=== PATIENT | female | born 1995 | race Caucasian/White ===

== ENCOUNTER 2019-03-20 16:43 | Emergency (ER) | payer MEDICAID, SELFPAY ==
[2019-03-20 17:16] VITALS: BP 137/93; PULSE 86; RESP 17; TEMP 36.7; O2SAT 98
--- NOTE | 2019-03-20 18:01 | W.ED.GENAD ---
Discharge Plan Disposition Patient Disposition: HOME Condition: Improving Discharge Details Chief Complaint: Chest Pain Clinical Impression: Atypical chest pain Primary Care Provider: Ricardo Ha ED Provider: Tobias Guerrero Home Meds and New Rx's Prescriptions: No Action No Known Home Meds RF: 0 Discharge Instructions Instructions: Chest Pain (ED) Additional Instructions: It is important that you follow-up with your primary care provider within the next week for reassessment of your symptoms. Return immediately to the emergency department for any new or worsening symptoms or any further concerns. Referrals: Amber Waite MD [ [facility] STAFF PHYSICIAN] - 1 week Discharge Data Discharge Date/Time-TO BE ENTERED AT DEPARTURE: 03/20/19 21:45 Medical Decision Making Patient presenting to the emergency department for chief complaint of chest pain. Patient states since last night she has had intermittent episodes of twinges of chest pain that seem to come and go. Patient also does complain of intermittent sensation of palpitations. Patient did have blood pressure checked when she was at work and noted it was elevated so came to the emergency department for examination. Patient does have mildly elevated blood pressure 137/93 otherwise unremarkable vital signs, physical exam is unremarkable nondiagnostic, EKG reviewed with attending physician Dr. Jemima Pena and shows sinus rhythm, rate of 76, normal axis, no STEMI, computer notation of short MO syndrome otherwise nondiagnostic EKG. Plan to do labs including d-dimer for work-up of chest pain. Review of initial labs show nonspecific leukocytosis, unremarkable CMP, negative initial troponin, negative d-dimer patient reassessed and states improvement of overall symptoms but occasionally feels continued twinges of chest pain. Patient denies any need for medication. Plan to do second troponin and continue to observe patient Second troponin reviewed and again is less than 0.05 . Patient reassessed and states continued improvement of symptoms and is requesting to go home. I feel that given patient's age and low risk factors that she is able to be safely followed up on outpatient basis. Patient placed on follow-up list for follow-up with primary care provider for chest pain reassessment. Return precautions discussed. After discussion of diagnosis and plan of care patient has no further needs, questions, or concerns and states clear understanding to return to the emergency department for any worsening symptoms. HPI General Mode of arrival: ambulatory. Date/Time Provider Initiated Documentation: 03/20/19 17:34. Limitations to Documentation: no limitations. Information obtained by: patient and RN notes reviewed. History of Present Illness 23 year old F presents to the emergency department with the chief complaint of chest pain, described as moderate, with intensity rated at 5. Quality is described as aching, and is localized to the chest. Patient started experiencing this day(s) (1) and it has been constant. No relieving factors improve symptom(s), No exacerbating factors reported . Patient notes no other symptoms.. Patient did receive the following treatments prior to arrival, none Related Data Home Medications Medication Instructions Recorded Confirmed Unknown [No Known Home Meds] 03/20/19 03/20/19 Allergies Allergy/AdvReac Type Severity Reaction Status Date / Time No Known Allergies Allergy Unverified 03/20/19 17:19 General Stated Complaint: Chest Pain BUNNY: 2 Review of Systems Constitutional Constitutional: Denies chills, Denies fever(s) and Denies malaise Cardiovascular Cardiovascular: Reports as per HPI, Reports chest pain, Denies chest pain with activity, Reports palpitations and Denies dyspnea Respiratory Respiratory: Denies cough, Denies hemoptysis and Denies dyspnea Gastrointestinal Gastrointestinal: Denies abdominal pain and Denies nausea Endocrine Endocrine: Reports palpitations PFSH Surgical History Appendectomy section 07/29/2010 07/20/2013 Family History Grandmother Diabetes Atrial fibrillation Heart disease Myocardial infarction Thyroid disease Social History Smoking/Tobacco Use Status: Never Drug use: Never Exam Const General: cooperative, healthy appearing, comfortable, no acute distress, not diaphoretic and not ill appearing Nutritional Appearance: average body habitus Orientation: alert, awake and oriented x3 Limitations: mental status not altered Neck Neck: normal visual inspection, full ROM, trachea midline, supple and no anterior neck swelling Chest Chest: normal inspection of the chest Resp Effort & Inspection: normal respiratory effort and able to speak in complete sentences Auscultation: clear to auscultation bilaterally Cardio Jugular venous pressure: no JVD Palpation: normal PMI Rate: regular rate Rhythm: regular rhythm Heart Sounds: S1 normal, S2 normal, no click, no gallops, no murmurs and no rubs GI Palpation: soft Auscultation: normal bowel sounds Skin General skin exam: no rashes or lesions noted Neuro General: alert, awake, oriented x3 and moves all extremities Course Vital Signs Vital signs: Vital Signs Temperature 36.7 C 03/20/19 17:16 Pulse 86 03/20/19 17:16 Respiratory Rate 17 03/20/19 17:16 Blood Pressure 137/93 H 03/20/19 17:16 Pulse Oximetry 98 03/20/19 17:16 Temperature 36.7 C 03/20/19 17:16 Pulse 86 03/20/19 17:16 Respiratory Rate 17 03/20/19 17:16 Blood Pressure 137/93 H 03/20/19 17:16 Blood Pressure Position Sitting 03/20/19 17:16 Pulse Oximetry 98 03/20/19 17:16 Oxygen Delivery Method Room Air 03/20/19 17:16 Oxygen Flow Rate 0 03/20/19 17:16 Pain Level 5 03/20/19 17:16
[2019-03-20 18:26] LABS: Abs Immature Grans 0.03 k/cumm (0.0-0.09); Absolute Basophil Count 0.07 k/cumm (0.0-0.2); Absolute Lymphocyte Count 2.51 k/cumm (1.2-3.4); Absolute Monocyte Count 0.74 k/cumm (0.11-0.7); Basophils % 0.6; Eosinophils % 1.6; HCT 41.9 % (36.0-46.0); HGB 14.1 g/dL (12.0-15.5); Immature Grans % 0.2; Lymphocytes % 20.6; Mean Corp. HGB Concentration 33.7 g/dL (32.0-36.0); Mean Corpuscular Hemoglobin 29.4 pg (27.0-33.0); Mean Corpuscular Volume 87.3 fL (80-95); Mean Platelet Volume 10.4 fL (8.0-11.0); Monocytes % 6.1; Neutrophils % 70.9; Platelet Count 339 x1000/uL (130-400); RBC Distribution Width 13.1 % (11.7-14.6); White Blood Cell Count 12.17 k/cumm (4.4-10.8)
[2019-03-20 18:28] LABS: Absolute Eosinophil Count 0.19 k/cumm (0.0-0.7); Absolute Neutrophil Count 8.63 k/cumm (1.2-6.7)
[2019-03-20 18:42] LABS: ALT 19 U/L (14-59); AST 8 U/L (15-37); Albumin 4.5 g/dL (3.4-5.0); Alkaline Phosphatase 69 U/L (46-116); Anion Gap 10.6 mmol/L (3-11); BUN 11 mg/dL (7-18); Bilirubin, Total 0.3 mg/dL (0.2-1.0); CO2 26.4 mmol/L (21.0-32.0); CREATININE 0.84 mg/dL (0.55-1.02); Calcium 9.2 mg/dL (8.5-10.1); Chloride 102 mmol/L (98-107); Glucose 89 mg/dL (70-100); Magnesium 1.9 mg/dL (1.8-2.4); Potassium 4.1 mmol/L (3.5-5.1); Sodium 139 mmol/L (136-145); Total Protein 7.8 g/dL (6.4-8.2)
[2019-03-20 18:48] LABS: Troponin I < 0.05 ng/mL (0.00-0.06)
[2019-03-20 19:02] LABS: D-Dimer 374 ng/mlFEU (<500)
[2019-03-20 21:12] LABS: Troponin I < 0.05 ng/mL (0.00-0.06)
== END 2019-03-20 21:45 | disposition home or self-care (01) ==
PROVIDERS: Emergency Provider Nurse Practitioner Family; PCP Nurse Practitioner Family
DX: R07.89 Other chest pain (principal)
CPT/HCPCS: 36415; 80053; 93005; 99285; 83735; 84484; 85025; 85379; 93010

== ENCOUNTER 2019-04-04 11:12 | Outpatient (REF) | payer MEDICAID, SELFPAY ==
[2019-04-04 13:41] LABS: Abs Immature Grans 0.04 k/cumm (0.0-0.09); Absolute Basophil Count 0.03 k/cumm (0.0-0.2); Absolute Eosinophil Count 0.12 k/cumm (0.0-0.7); Absolute Lymphocyte Count 1.99 k/cumm (1.2-3.4); Absolute Monocyte Count 0.64 k/cumm (0.11-0.7); Basophils % 0.3; Eosinophils % 1.2; HCT 42.1 % (36.0-46.0); HGB 13.9 g/dL (12.0-15.5); Immature Grans % 0.4; Lymphocytes % 20.5; Mean Corpuscular Hemoglobin 28.8 pg (27.0-33.0); Mean Corpuscular Volume 87.2 fL (80-95); Mean Platelet Volume 11.2 fL (8.0-11.0); Monocytes % 6.6; Platelet Count 320 x1000/uL (130-400); RBC 4.83 m/cumm (4.00-5.20); RBC Distribution Width 13.2 % (11.7-14.6); White Blood Cell Count 9.72 k/cumm (4.4-10.8)
[2019-04-04 14:48] LABS: ALT 104 U/L (14-59); AST 30 U/L (15-37); Albumin 4.5 g/dL (3.4-5.0); Alkaline Phosphatase 80 U/L (46-116); Anion Gap 10.1 mmol/L (3-11); BUN 8 mg/dL (7-18); Bilirubin, Total 0.4 mg/dL (0.2-1.0); CO2 26.9 mmol/L (21.0-32.0); CREATININE 0.79 mg/dL (0.55-1.02); Calcium 9.8 mg/dL (8.5-10.1); Chloride 103 mmol/L (98-107); Glucose 95 mg/dL (70-100); Potassium 4.6 mmol/L (3.5-5.1); Sodium 140 mmol/L (136-145); TSH (W/Ref FT4) 1.64 uIU/mL (0.36-3.74); Total Protein 7.6 g/dL (6.4-8.2)
== END 2019-04-04 11:32 ==
LOC: NCHCN 11:12
PROVIDERS: PCP Nurse Practitioner Family; Visit Provider Nurse Practitioner Family
DX: R00.2 Palpitations (principal)
CPT/HCPCS: 80053; 84443; 85025

== ENCOUNTER 2019-04-23 01:08 | Outpatient (CLI) | payer MEDICAID, SELFPAY | END 2019-04-23 01:28 | PROVIDERS: PCP Nurse Practitioner Family; Visit Provider Nurse Practitioner Family | DX: R00.0 Tachycardia, unspecified (principal); I49.1 Atrial premature depolarization | CPT/HCPCS: 93225 ==

== ENCOUNTER 2019-04-25 08:12 | Outpatient (CLI) | payer MEDICAID, SELFPAY ==
--- NOTE | 2019-04-25 09:09 | W.HOLTRPT ---
Date of service: 04/25/19 Time of Service: 09:09 Holter Monitor Report Holter Monitor Note: There is a 48-hour Holter monitor ordered for the indication of palpitations. ?The patient was in normal sinus rhythm for the entirety of the recording ?The patient had 0 episodes of supraventricular tachycardia and 2 total premature atrial beats. ?The patient had 0 episodes of ventricular tachycardia and no ventricular ectopic beats. ?There were no episodes of atrial fibrillation no episodes of high degree heart block and no pauses greater than 3 seconds. ?Patient event recordings corresponded with sinus rhythm and sinus tachycardia.
== END 2019-04-25 08:32 ==
PROVIDERS: PCP Nurse Practitioner Family; Visit Provider Nurse Practitioner Family
DX: R00.0 Tachycardia, unspecified (principal); I49.1 Atrial premature depolarization
CPT/HCPCS: 93226

== ENCOUNTER 2020-05-29 19:11 | Outpatient (REF) | payer SELFPAY ==
[2020-06-01 22:43] LABS: COVID-19 RT-PCR Result Positive (Negative)
== END 2020-05-29 19:31 ==
LOC: LBN 19:11
PROVIDERS: PCP Nurse Practitioner Family; Visit Provider Nurse Practitioner Adult Health
DX: Z11.59 Encounter for screening for other viral diseases (principal)
CPT/HCPCS: U0003

== ENCOUNTER 2020-09-18 16:11 | Outpatient (REF) | payer SELFPAY ==
[2020-09-19 19:44] LABS: COVID-19 RT-PCR UVMMC Result Indeterminate (Negative)
== END 2020-09-18 16:12 | disposition home or self-care (01) ==
LOC: LBN 16:11
PROVIDERS: PCP Nurse Practitioner Family; Visit Provider Nurse Practitioner Adult Health
DX: Z20.822 Contact with and (suspected) exposure to COVID-19 (principal)
CPT/HCPCS: U0003

== ENCOUNTER 2021-04-14 13:09 | Outpatient (REF) | payer OTHER, SELFPAY ==
[2021-04-14 13:31] LABS: Abs Immature Grans 0.05 10^3/uL (0.0-0.06); Absolute Basophil Count 0.06 10^3/uL (0.0-0.2); Absolute Eosinophil Count 0.18 10^3/uL (0.0-0.7); Absolute Lymphocyte Count 1.98 10^3/uL (1.2-3.4); Absolute Monocyte Count 0.49 10^3/uL (0.1-0.8); Absolute Neutrophil Count 6.32 10^3/uL (1.2-6.7); Basophils % 0.7; HCT 40.3 % (36.0-46.0); HGB 13.3 g/dL (11.2-15.7); Immature Grans % 0.6; Lymphocytes % 21.8; MCH 28.4 pg (27.0-33.0); MCV 85.9 fL (80-95); MPV 10.6 fL (8.0-11.0); Monocytes % 5.4; Neutrophils % 69.5; Nucleated RBC 0 %; Platelet Count 339 10^3/uL (130-400); RBC 4.69 10^6/uL (3.93-5.22); RDW 12.4 % (11.7-14.6); RDW-SD 38.8 fL; WBC 9.08 10^3/uL (4.4-10.8)
[2021-04-14 13:32] LABS: Bilirubin Negative (Negative); Blood Trace-intact (Negative); Clarity Clear (Clear); Glucose Negative (Negative); Ketones Negative (Negative); Leukocyte Esterase Negative (Negative); Nitrite Negative (Negative); Urobilinogen 0.2 EU/dL (Up TO 0.2)
[2021-04-14 13:42] LABS: Bacteria Few HPF (Negative); C & S Indicated? No; Casts Negative LPF (Negative); Crystals Negative HPF (Negative); Epithelial Cells Many HPF (Negative); Mucus Negative (Negative); Other Cells Negative (Negative); RBC 0-2 HPF (0-2); WBC 0-2 HPF (0-5)
[2021-04-14 14:07] LABS: ALT 32 U/L (14-59); AST 11 U/L (15-37); Albumin 4.3 g/dL (3.4-5.0); Alkaline Phosphatase 74 U/L (46-116); Anion Gap 8.7 mmol/L (3-11); BUN 10 mg/dL (7-18); Bilirubin, Total 0.4 mg/dL (0.2-1.0); CO2 27.3 mmol/L (21.0-32.0); CREATININE 0.8 mg/dL (0.55-1.02); Calcium 9.5 mg/dL (8.5-10.1); Calculated LDL 212 mg/dL (<100); Chloride 103 mmol/L (98-107); Cholesterol 290 mg/dL (<200); Glucose 88 mg/dL (74-106); HDL Cholesterol 46 mg/dL (40-60); Potassium 4.4 mmol/L (3.5-5.1); Sodium 139 mmol/L (136-145); TSH (W/Ref FT4) 1.53 uIU/mL (0.36-3.74); Triglyceride 164 mg/dL (<150)
[2021-04-14 15:27] LABS: NT-proBNP 56 pg/mL (<300)
[2021-04-14 15:51] LABS: COMMENT (LAB VIEW ONLY) 11.89 mg/dL; Microalb ug/mg Crea 36.2 ug/mg Cr
== END 2021-04-14 13:10 | disposition home or self-care (01) ==
LOC: LBN 13:09
PROVIDERS: PCP Nurse Practitioner Family; Visit Provider Nurse Practitioner Family
DX: I10 Essential (primary) hypertension (principal); R53.83 Other fatigue; Z00.00 Encounter for general adult medical examination without abnormal findings; R60.9 Edema, unspecified
CPT/HCPCS: 80053; 80061; 81003; 81015; 82043; 82570; 83880; 84443; 85025

== ENCOUNTER 2023-03-28 16:11 | Outpatient (REF) | payer BC, SELFPAY ==
[2023-03-28 19:01] LABS: Hemoglobin A1C 5.3 % (<5.7)
[2023-03-28 19:05] LABS: ALT 39 U/L (14-59); AST 16 U/L (15-37); Albumin 4.3 g/dL (3.4-5.0); Alkaline Phosphatase 59 U/L (46-116); Anion Gap 5.6 mmol/L (3-11); BUN 9 mg/dL (7-18); Bilirubin, Total 0.3 mg/dL (0.2-1.0); CO2 27.4 mmol/L (21.0-32.0); CREATININE 0.8 mg/dL (0.55-1.02); Calcium 9.5 mg/dL (8.5-10.1); Chloride 103 mmol/L (98-107); Estimated GFR 102.22 (mL/min/1.73m2); FREE T4 0.97 ng/dL (0.76-1.46); Glucose 85 mg/dL (74-106); Sodium 136 mmol/L (136-145); TSH 1.29 uIU/mL (0.36-3.74); Total Protein 7.6 g/dL (6.4-8.2)
== END 2023-03-28 16:12 | disposition home or self-care (01) ==
LOC: NCHCN 16:11
PROVIDERS: Visit Provider Nurse Practitioner Family
DX: I10 Essential (primary) hypertension (principal); E66.8 Other obesity; Z68.30 Body mass index [BMI] 30.0-30.9, adult; Z13.1 Encounter for screening for diabetes mellitus
CPT/HCPCS: 80053; 83036; 84439; 84443

== ENCOUNTER 2024-06-26 16:41 | Outpatient (REF) | payer BC, SELFPAY ==
--- OUTSIDE RECORDS SUMMARY | 2024-06-26 16:43 | XMS_ITS | Encounter Summary ---
[place] [address] Care Team Providers Care Collar Worker Name Role Phone Shaneka Mae APRN Primary Care Provider [phone] Encounter Details Date Type Department Care Team (Late st Contact Info) Description 06/25/2018 Orders Only Obstetrics [place] [id number] Kinjal Jennings RN Social History Tobacco Use Types Packs/Day Years Used Date Smoking Tobacco: Never Smokeless Tobacco: Never Alcohol Use Standard Drinks/Week Comments No 0 (1 standard drink = 0.6 oz pur e alcohol) Sex and Gender Information Value Date Recorded Sex Assigned at Not on file Gender Identity Not on file Sexual Orientation Not on file documented as of this encounter Plan of Treatment Not on file documented as of this encounter Visit Diagnoses Not on filedocumented in this encounter Care Teams Collar Worker Relationship Specialty Start Date End Date Shaneka Mae APRN PCP - General Family Medicine 06/13/18 01/09/19 documented as of this encounter
--- OUTSIDE RECORDS SUMMARY | 2024-06-26 16:43 | XMS_ITS | Continuity of Care Document ---
Author Organization [facility] Address [address] [place] [address] Encounter [place] Date(s): 12/02/22 - 12/02/[address] [address] Discharge Disposition: Home or Self Care Attending Physician: Antonio Vences DO Admitting Physician: Antonio Vences DO Referring Physician: Antonio Vences DO Assessment and Plan Diagnostic Tests Pending * QuantiFERON-TB Gold Plus, WB [place] 12/02/22 * Hepatitis B Surface Antibody [facility] 12/02/22 Patient Care team information Care Team Related Persons Name: KHURRAM LISA
--- OUTSIDE RECORDS SUMMARY | 2024-06-26 16:43 | XMS_ITS | Encounter Summary ---
[place] [address] Care Team Providers Care Director Translational Name Role Phone Shaneka Mae APRN Primary Care Provider [phone] Encounter Details Date Type Department Care Team (Latest Contact Info) Description 08/21/2018 Encounter Social History Tobacco Use Types Packs/Day Years Used Date Smoking Tobacco: Never Smokeless Tobacco: Never Alcohol Use Standard Drinks/Week Comments No 0 (1 standard drink = 0.6 oz pur e alcohol) Sex and Gender Information Value Date Recorded Sex Assigned at Not on file Gender Identity Not on file Sexual Orientation Not on file documented as of this encounter Miscellaneous Notes * Note - Jaimie Motley RN - 08/21/2018 7:42 PM EDT This note was copied from a baby's chart. Per the bedside RN, who cares for this baby frequently. Mom has stopped pumping. Mom does have a granted hospital grade pump that will need to be collected. documented in this encounter Plan of Treatment Not on file documented as of this encounter Visit Diagnoses Not on filedocumented in this encounter Care Teams Director Translational Relationship Specialty Start Date End Date Shaneka Mae APRN PCP - General Family Medicine 06/13/18 01/09/19 documented as of this encounter
--- OUTSIDE RECORDS SUMMARY | 2024-06-26 16:43 | XMS_ITS | Encounter Summary ---
[place] [address] Care Team Providers Care Septic Pump Truck Driver Name Role Phone Shaneka Mae APRN Primary Care Provider [phone] Encounter Details Date Type Department Care Team (Late st Contact Info) Description 09/06/2018 Notes Only Obstetrics [place] [phone] Tess Arias RN Social History Tobacco Use Types Packs/Day Years Used Date Smoking Tobacco: Never Smokeless Tobacco: Never Alcohol Use Standard Drinks/Week Comments No 0 (1 standard drink = 0.6 oz pur e alcohol) Sex and Gender Information Value Date Recorded Sex Assigned at Not on file Gender Identity Not on file Sexual Orientation Not on file documented as of this encounter Progress Notes * Tess Arias RN - 09/06/2018 2:33 PM EDT Disability paperwork completed and Carol has been called to inform her she can pick it up at [address] engineering secretary desk. documented in this encounter Plan of Treatment Not on file documented as of this encounter Visit Diagnoses Not on filedocumented in this encounter Care Teams Septic Pump Truck Driver Relationship Specialty Start Date End Date Shaneka Mae APRN PCP - General Family Medicine 06/13/18 01/09/19 documented as of this encounter
--- OUTSIDE RECORDS SUMMARY | 2024-06-26 16:43 | XMS_ITS | Encounter Summary ---
[place] [address] Care Team Providers Care Human Resources Office Assistant Name Role Phone Shaneka Mae APRN Primary Care Provider [phone] Reason for Visit * Reason Comments Care Encounter Details Date Type Department Care Team (Latest Contact Info) Description 07/30/2018 11:00 AM EST Visit Obstetrics [place] [address] Georgia Sarmiento MD [facility] [place] [address] Hypertension in , preeclampsia, delivered Social History Tobacco Use Types Packs/Day Years Used Date Smoking Tobacco: Never Smokeless Tobacco: Never Alcohol Use Standard Drinks/Week Comments No 0 (1 standard drink = 0.6 oz pur e alcohol) Sex and Gender Information Value Date Recorded Sex Assigned at Not on file Gender Identity Not on file Sexual Orientation Not on file documented as of this encounter Last Filed Vital Signs Vital Sign Reading Time Taken Comments Blood Pressure 110/68 07/30/2018 11:18 AM EST Pulse - - Temperature - - Respiratory Rate - - Oxygen Saturation - - Inhaled Oxygen Concentration - - Weight 82.5 kg (181 lb 14.4 oz) 019 11:18 AM EST Height - - Body Mass Index 31.21 06/14/2018 5:00 PM EST documented in this encounter Progress Notes * Georgia Sarmiento MD - 07/30/2018 11:00 AM EST Weeks 6 weeks Mode of delivery Repeat - classical complicated by 26 week preeclampsia Delivery complications none complications none General well being good Mood Stressed but managing Resumed intercourse yes Resumed menses no Symptoms of incontinence urine Breast or bottle feeding Pumping, dwindling supply Current contraception tubal Emergency contraception discussed No. Prior Pap smears < 3 years Need for OGTT Y/N No Discuss anticipated health risks Risk of cardiovascular disease Current Outpatient Medications on File Prior to Visit Medication Sig Dispense Refill ??? NIFEdipine (PROCARDIA XL) 30 mg Tablet Extended Rel 24 hr TAKE 1 TABLET BY MOUTH EVERY DAY 30 tablet 0 ??? vitamin with [id number] Tablet Take by mouth. No Known Allergies Objective: BP 110/68 Wt 82.5 kg (181 lb 14.4 oz) ? Yes BMI 31.21 kg/m?? Examination General- Well appearing woman in no distress Abdomen - No mass or HSM Surgical wound well healed Extremities - No edema Assessment: Normal recovery from and delivery. Resolved preeclampsia At risk for early adult cardiovascular disease Plan: Resume routine health maintenance care. Stop nifedipine and RTC next week Pap smear not done today. Contraception tubal Recommended to resume well woman care with PCP. I recommended she have no lapse in routine care Recommended weight control, healthy diet and exercise most days of the week. Advised to her to do a test for any concern for and seek care promptly if positive Georgia Sarmiento MD Cc: Shaneka Mae APRN documented in this encounter Plan of Treatment Not on file documented as of this encounter Visit Diagnoses Diagnosis Hypertension in , preeclampsia, delivered Mild or unspecified pre-eclampsia, with delivery documented in this encounter Care Teams Human Resources Office Assistant Relationship Specialty Start Date End Date Shaneka Mae APRN PCP - General Family Medicine 06/13/18 01/09/19 documented as of this encounter
--- OUTSIDE RECORDS SUMMARY | 2024-06-26 16:43 | XMS_ITS | Encounter Summary ---
[place] [address] Care Team Providers Care Practice Assistant Name Role Phone Shaneka Mae APRN Primary Care Provider [phone] Reason for Visit * Reason Comments Blood Pressure Check Encounter Details Date Type Department Care Team (Late st Contact Info) Description 06/25/2018 11:00 AM EST Clinical Support Obstetrics [place] [phone] Kinjal Jennings, RN BP check Social History Tobacco Use Types Packs/Day Years [...] Sign Reading Time Taken Comments Blood Pressure 144/101 06/25/2018 10:54 AM EST Pulse - - Temperature - - Respiratory Rate - - Oxygen Saturation - - Inhaled Oxygen Concentration - - Weight - - Height - - Body Mass Index - - documented in this encounter Progress Notes * Kinjal Jennings, RN - 06/25/2018 11:00 AM EST Patient her for POD 7 BP check. She denies headaches or vision changes but does report increased stress. Baby currently in NICU. BP today: 144/101; HR [address] Carreon. Recommends nifedipine 30XL once daily. RX sent to [facility]. Another BP check in one week scheduled. documented in this encounter Plan of Treatment Not on file documented as of this encounter Visit Diagnoses Diagnosis BP check Screening for hypertension documented in this encounter Care Teams Practice Assistant Relationship Specialty Start Date End Date Shaneka Mae APRN PCP - General Family Medicine 06/13/18 01/09/19 documented as of this encounter
--- OUTSIDE RECORDS SUMMARY | 2024-06-26 16:43 | XMS_ITS | Encounter Summary ---
[place] [address] Care Team Providers Care Infection Control Preventionist Name Role Phone Shaneka Mae APRN Primary Care Provider [phone] Reason for Visit * Reason Comments Care Encounter Details Date Type Department Care Team (Late st Contact Info) Description 07/02/2018 11:00 AM EST Clinical Support Obstetrics [place] [phone] Tess Arias RN Blood pressure check Social History Tobacco Use Types Packs/Day [...] Sign Reading Time Taken Comments Blood Pressure 124/74 07/02/2018 10:56 AM EST Pulse 112 07/02/2018 10:56 AM EST Temperature - - Respiratory Rate - - Oxygen Saturation 97% 07/02/2018 10:56 AM EST Inhaled Oxygen Concentration - - Weight - - Height - - Body Mass Index - - documented in this encounter Progress Notes * Tess Arias RN - 07/02/2018 11:00 AM EST Carol is here for her 2 week post visit. She is feeling well. She is staying at [facility], baby is doing very well. Lochia - light, pain is 0. She reports no concerns about her incision. Assessment: normotensive on Nifedipine post . Plan: She is reminded to call if having light headed sensations, dizzyness or any other adverse sensation as blood pressure check can be done anytime. Numbers for clinic reviewed. documented in this encounter Plan of Treatment Not on file documented as of this encounter Visit Diagnoses Diagnosis Blood pressure check Screening for hypertension documented in this encounter Care Teams Infection Control Preventionist Relationship Specialty Start Date End Date Shaneka Mae APRN PCP - General Family Medicine 06/13/18 01/09/19 documented as of this encounter
--- OUTSIDE RECORDS SUMMARY | 2024-06-26 16:43 | XMS_ITS | Encounter Summary ---
Author Organization [facility] [place] [address] Care Team Providers Care Hotel Night Auditor Name Role Phone Shaneka Mae APRN Primary Care Provider [phone] Encounter Details Date Type Department Care Team (Latest Contact Info) Description 07/11/2018 Encounter Social History Tobacco Use Types Packs/Day [...] this encounter Miscellaneous Notes * Note - Leigha Alcazar RN - 07/11/2018 10:00 AM EST This note was copied from a baby's chart. Touched base briefly with Carol. She states that she has done some power pumping and that her volumes vary from 50-70ml. She is a little nervous because Tatiana lost 50 grams last night. She has been growing well, but they are starting steroids to try and wean her from the vent, and Carol knows that will affect her growth. Continue to provide support. Leigha alcazar RN, IBCLC [facility] Services documented in this encounter Plan of Treatment Not on file documented as of this encounter Visit Diagnoses Not on filedocumented in this encounter Care Teams Hotel Night Auditor Relationship Specialty Start Date End Date Shaneka Mae APRN PCP - General Family Medicine 06/13/18 01/09/19 documented as of this encounter
--- OUTSIDE RECORDS SUMMARY | 2024-06-26 16:43 | XMS_ITS | Clinical Summary ---
Author Organization Count Includes [facility] Address [facility] [place] [address] Care Team Providers Care Operating Room Rn Name Role Phone Unknown Primary Care Provider Unavailabl e Allergies No known active allergies Medications Medication Sig Dispensed Refills Start Date End Date Status butalbital-acetamin ophen-caffeine (FIORICET, ESGIC) per tablet Take 2 tablets by mouth every 4 hours as needed for Pain. 10 tablet 0 06/14/2013 Active Additional Information Patient not taking.Reported on 07/30/2018 acetaminophen (TYLENOL) 325 mg Tablet Take 2 tablets by mouth every 6 hours as needed for Pain. 30 tablet 06/21/2018 Active ibuprofen (ADVIL;MOTRIN) 200 mg Tablet Take 3 tablets by mouth every 6 hours as needed for Pain. 30 tablet 06/21/2018 Active Additional Information Patient not taking.Reported on 07/02/2018 vitamin with yswitlvy-Ir-Eldd-FA Tablet Take by mouth. Active NIFEdipine (PROCARDIA XL) 30 mg Tablet Extended Rel 24 hr TAKE 1 TABLET BY MOUTH EVERY DAY 30 tablet 07/23/2018 Active Active Problems Problem Noted Date Diagnosed Date Preeclampsia, severe, second trimester 9 Hx of section X2 06/13/2018 History of delivery with first at 28w at [facility] [place] for preeclampsia with severe features 06/13/2018 History of gestational hyper tension in second , delivered at [facility] [place] at 37w4d 06/13/2018 Resolved Problems Problem Noted Date Diagnosed Date Resolved Date Tachycardia 07/20/2013 09/02/2013 Overview (07/21/2013): Sinus tach to 140s on admission 2/8 w/associated chest discomfort. PE protocol CT negative Gestational hypertension 06/10/2013 Rubella non-immune status, antepartum 05/03/2013 09/02/2013 Unspecified high-risk 03/08/2013 09/02/2013 Overview (03/08/2013): Team MFM Delivery plan Desires GBS date & Result Cystic fibrosis choice Aneuploidy choice Others screening tests nutrition Childbirth education preferences Contraception plan Ped/circ plans Immunizations: Influenza vaccine Accepted Declined Contraindicated Other vaccines Indicated Not indicated Given during Tdap Pneumovax MMR Varicella Other Hx of preeclampsia, prior pr egnancy, currently 12/17/2012 09/02/2013 Overview (03/08/2013): Severe PEC at 28 weeks, IUGR, LTCS for NRFWB Previous delivery a ffecting 12/17/2012 09/02/2013 Overview (07/10/2013): Considering ERCS. Provided info Primary LTCS on primary. Wants ERCS in setting of breech presentation Assessment & Plan (05/03/2013 1:34 PM EST): We discussed the implications of prior section on the current and options for delivery. I discussed her specific risk factors for a , of which there are none, she is good a candidate. I explained that the general risk of uterine rupture is about 0.5% for spontaneous labor. The risk of uterine rupture is higher (around 1%) if labor induction or augmentation is needed. The patient previously received and read copy of our brochure: choices after delivery. With uterine rupture, 10% of the time the rupture is catastrophic with either or severe injury to the child, even with labor in the hospital and prompt response. Maternal complications of uterine rupture include bladder injury, excessive blood loss and the need for hysterectomy. section after failed is associated with a mildly increased risk of post-operative complications when compared to an elective section. If one were to compare outcomes for women choosing versus those having an elective repeat section without labor, women choosing have slightly increased blood loss and risk of infection. However, overall a successful is the safest route of delivery for a mother and child. I explained that t he indications for section in a patient undergoing are different than in an unscarred uterus. With a , delivery may be performed if there are recurrent heart decelerations that do not resolved with medical interventions, or if there is lack of progress in the active phase of labor despite adequate contractions for 2 hours. I answered all questions, reviewed how her last labor was managed and discussed comfort measures during labor. consent was signed today. Immunizations Name Administration Dates Next Due Influenza Vaccine, Whole 02/10/2010 MMR Vaccine LIVE 07/22/2013 Tdap (Adacel, Boostrix) 06/14/2018,06/24/2013, Family History Relation Status Comments Father Alive Mother Alive Social History Tobacco Use Types Packs/Day Years Used Date Smoking Tobacco: Never Smokeless Tobacco: Never Alcohol Use Standard Drinks/Week Comments No 0 (1 standard drink = 0.6 oz pur e alcohol) Sex and Gender Information Value Date Recorded Sex Assigned at Not on file Gender Identity Not on file Sexual Orientation Not on file Last Filed Vital Signs Vital Sign Reading Time Taken Comments Blood Pressure 110/68 07/30/2018 11:18 AM EST Pulse 112 07/02/2018 10:56 AM EST Temperature 37.6 ??C (99.7 ??F) 06/21/2018 9:38 AM ES T Respiratory Rate 16 06/21/2018 9:38 AM EST Oxygen Saturation 97% 07/02/2018 10: 56 AM EST Inhaled Oxygen Concentration - - Weight 82.5 kg (181 lb 14.4 oz) 019 11:18 AM EST Height 162.6 cm (5' 4.02) 06/14/2018 5:00 PM ES T Body Mass Index 31.21 06/14/2018 5:00 PM EST Plan of Treatment Health Maintenance Due Date Last Done Comments Hepatitis C Screening 10/21/2011 Hepatitis B vaccine (0-59 yrs) (1) 2012 HPV test 10/21/2023 PAP Smear 10/21/2023 Covid-19 Vaccine ( - 2023-2 5 season) 2024 Influenza (Flu) vaccine (1 o f 1 - Influenza standard series) 02/11/2024 02/10/2010 Tetanus/Diphtheria/Pertussis Vaccines (4 - Td or Tdap) 06/14/2028 06/14/2018, 06/24/2013, 08/02/2010 HIV screen Completed 12/17/2012 Procedures Procedure Name Priority Date/Time Associated Diagnosis Comments HIV SCREEN, 4TH GENERATION ([facility] [place]/CGP/APD/NLH)PE RFORMABLE Routine 12/17/2012 3:50 PM EDT Hx of preeclampsia, prior , currently from Last 3 Months or Most Recently Relevant to Health Maintenance Results * HIV (12/17/2012 3:50 PM EDT) HIV 1/2 Ab Negative [facility] Blood specimen (specimen) 12/17/2012 3:50 PM EDT 12/17/2012 3:57 PM EDT Narrative Resulting Agency Comment Spec In Lab Georgia Sarmiento MD CHEMISTRY ORDERABLES [facility] from Last 3 Months or Most Recently Relevant to Health Maintenance Advance Directives * Full Code (Latest Code Status on File) Date Activated Date Inactivated Comments 06/13/2018 1:52 PM 06/21/2018 12:30 PM Question Answer Comments Does patient have capacity to make decision: Yes * Full Code Date Activated Date Inactivated Comments 07/19/2013 10:24 PM 07/22/2013 3:36 PM Question Answer Comments Order Status: Initial Order Does patient have decision m aking capacity? Yes, Order is based on Patients wishes. * Full Code Date Activated Date Inactivated Comments 07/10/2013 6:03 PM 07/11/2013 9:03 PM Question Answer Comments Order Status: Initial Order Does patient have decision m aking capacity? Yes, Order is based on Patients wishes. Care Teams Operating Room Rn Relationship Specialty Start Date End Date Unknown None PCP - General 01/10/19
--- OUTSIDE RECORDS SUMMARY | 2024-06-26 16:43 | XMS_ITS | Encounter Summary ---
Author Organization [facility] [place] [address] Care Team Providers Care Morals Squad Police Officer Name Role Phone Shaneka Mae APRN Primary Care Provider [phone] Encounter Details Date Type Department Care Team (Latest Contact Info) Description 06/27/2018 Encounter Social History Tobacco Use Types Packs/Day [...] * Note - Leigha Alcazar RN - 06/27/2018 9:45 AM EST This note was copied from a baby's chart. Met with Carol at [facility]'s bedside. She still feels that pumping is going well, better than it did for Leonidas. She is now getting 3/4 of a bottle which is about 50-60cc. Per pumping. She did express concern that she was planning to go home tomorrow night and she still has not gotten her hospital grade pump form [employer]. Encouraged her to reach out to [facility] and see if she can track it. Discussed the availability of a loaner pump in the office if needed Leigha Alcazar RN, IBCLC [facility] [place] Services documented in this encounter Plan of Treatment Not on file documented as of this encounter Visit Diagnoses Not on filedocumented in this encounter Care Teams Morals Squad Police Officer Relationship Specialty Start Date End Date Shaneka Mae APRN PCP - General Family Medicine 06/13/18 01/09/19 documented as of this encounter
--- OUTSIDE RECORDS SUMMARY | 2024-06-26 16:43 | XMS_ITS | Encounter Summary ---
[place] [address] Care Team Providers Care Millwork Estimator Name Role Phone Shaneka Mae APRN Primary Care Provider [phone] Encounter Details Date Type Department Care Team (Late st Contact Info) Description 07/18/2018 Notes Only Obstetrics [place] [phone] Tess Arias RN Social History Tobacco Use [...] Progress Notes * Tess Arias RN - 07/18/2018 9:18 AM EST [facility]ML[facility]; Disability paperwork faxed to [employer] @ [phone]; Medical Certificate faxed to [employer] @ [phone] documented in this encounter Plan of Treatment Not on file documented as of this encounter Visit Diagnoses Not on filedocumented in this encounter Care Teams Millwork Estimator Relationship Specialty Start Date End Date Shaneka Mae APRN PCP - General Family Medicine 06/13/18 01/09/19 documented as of this encounter
--- OUTSIDE RECORDS SUMMARY | 2024-06-26 16:43 | XMS_ITS | Encounter Summary ---
[place] [address] Care Team Providers Care Laboratory Technologist Name Role Phone Shaneka Mae APRN Primary Care Provider [phone] Reason for Visit * Reason Comments Medication Refill Encounter Details Date Type Department Care Team (Late st Contact Info) Description 07/22/2018 Refill Obstetrics [place] [address] Severo Carreon MD [facility] OBSTETRICS [place] [address] Social History Tobacco Use Types Packs/Day Years [...] on filedocumented in this encounter Care Teams Laboratory Technologist Relationship Specialty Start Date End Date Shaneka Mae APRN PCP - General Family Medicine 06/13/18 01/09/19 documented as of this encounter
--- OUTSIDE RECORDS SUMMARY | 2024-06-26 16:43 | XMS_ITS | Encounter Summary ---
[place] [address] Care Team Providers Care Hunting Guide Name Role Phone Shaneka Mae APRN Primary Care Provider [phone] Encounter Details Date Type Department Care Team (Late st Contact Info) Description 07/27/2018 Telephone Obstetrics [place] [phone] Tess Arias RN Social History Tobacco Use [...] as of this encounter Miscellaneous Notes * Telephone Encounter - Tess Arias RN - 07/27/2018 4:30 PM EST Disability paperwork to [employer] [facility] and [facility] REFAXED - confirmation again received that faxes have been received. documented in this encounter Plan of Treatment Not on file documented as of this encounter Visit Diagnoses Not on filedocumented in this encounter Care Teams Hunting Guide Relationship Specialty Start Date End Date Shaneka Mae APRN PCP - General Family Medicine 06/13/18 01/09/19 documented as of this encounter
--- OUTSIDE RECORDS SUMMARY | 2024-06-26 16:43 | XMS_ITS | Encounter Summary ---
[place] [address] Care Team Providers Care Silk Hanger Name Role Phone Shaneka Mae APRN Primary Care Provider [phone] Encounter Details Date Type Department Care Team (Latest Contact Info) Description 07/04/2018 Encounter Social History Tobacco Use Types Packs/Day [...] this encounter Miscellaneous Notes * Note - Nicole Sands RN - 07/04/2018 7:08 PM EST This note was copied from a baby's chart. S/O Met briefly with mom Carol this afternoon. She reports she is currently able to express about 50 ml per pumping session but has not really seen any increase in volume lately. She has been trying to pump about eight times daily and is using a hospital grade [employer] breast pump. No pain with herpumping sessions. A Mom with no increase in breast milk supply, despite pumping per recommended guidelines. P As Tatiana is still intubated and too premature to breast feed directly to help with milk supply, recommended Carol try some power pumping sessions for the next 48 hours. Gave her the strategies to improve milk production handout and reviewed the following: Provide moist heat and breast massage for 3-5 minutes prior to pumping Power pumping for 48 hours: During the day pump on a 2 to 3 hours schedule for 10 minutes on, 10 minutes off, 10 minutes on; regular pump at night every 4 hours for 15 minutes Provide frequent maternal-infant skin to skin contact Encourage rest breaks, a nap during the day and suggestions to manage stress Review nutritional supplements that may help increase milk volumes Provide emotional support and encouragement for all the milk mother has provided will continue to follow closely. Nicole Sands RN IBCLC [facility] [place] documented in this encounter Plan of Treatment Not on file documented as of this encounter Visit Diagnoses Not on filedocumented in this encounter Care Teams Silk Hanger Relationship Specialty Start Date End Date Shaneka Mae APRN PCP - General Family Medicine 06/13/18 01/09/19 documented as of this encounter
--- OUTSIDE RECORDS SUMMARY | 2024-06-26 16:43 | XMS_ITS | Encounter Summary ---
Author Organization [facility] [place] [address] Care Team Providers Care Real Estate Acquisition Analyst Name Role Phone Shaneka Mae APRN Primary Care Provider [phone] Encounter Details Date Type Department Care Team (Latest Contact Info) Description 06/22/2018 Encounter Social History Tobacco Use Types Packs/Day [...] * Note - Jaimie Motley RN - 06/22/2018 8:54 PM EST This note was copied from a baby's chart. I touched base with mom today. Per mom pumping is going well. She is pumping per the suggested guidelines. She is obtaining ~25 cc's a session. She is aware support is available as needed. documented in this encounter Plan of Treatment Not on file documented as of this encounter Visit Diagnoses Not on filedocumented in this encounter Care Teams Real Estate Acquisition Analyst Relationship Specialty Start Date End Date Shaneka Mae APRN PCP - General Family Medicine 06/13/18 01/09/19 documented as of this encounter
--- OUTSIDE RECORDS SUMMARY | 2024-06-26 16:43 | XMS_ITS | Continuity of Care Document ---
Author Organization [facility] Address [address] [place] [address] Care Team Providers Care Luster Applicator Name Role Phone [facility] Primary [facility] Physician [facility] Date(s): 05/28/24 - 05/28/24 [facility] [address] [place] [address] Encounter Diagnosis Ovarian cyst(Discharge Diagnosis) - 05/28/24 Encounter for general adult medical examination without abnormal findings(Final) - Discharge Disposition: Home or Self Care Attending Physician: Jonh Blanco MD Admitting Physician: Jonh Blanco MD Referring Physician: Jonh Blanco MD Encounter Type: Emergency Allergies, Adverse Reactions, Alerts No Known Allergies Immunizations Given and Recorded Vaccine Date Status Refusal Reason SARS-CoV-2 (COVID-19) mRNA BNT-162b2 vax 10/01/21 Recorded SARS-CoV-2 (COVID-19) mRNA BNT-162b2 vax 05/12/21 Recorded tetanus/diphth/pertuss (Tdap) adult/adol 06/14/18 Recorded tetanus/diphth/pertuss (Tdap) adult/adol 06/24/13 Recorded tetanus/diphth/pertuss (Tdap) adult/adol 05/07/12 Recorded tetanus/diphth/pertuss (Tdap) adult/adol 08/02/10 Recorded tetanus/diphth/pertuss (Tdap) adult/adol 06/02/06 Recorded measles/mumps/rubella virus vaccine 07/22/13 Recor ded measles/mumps/rubella virus vaccine 10/27/98 Recor ded measles/mumps/rubella virus vaccine 02/02/95 Recor ded HPV, unspecified formulation 11/22/11 Recorded HPV, unspecified formulation 03/31/11 Recorded HPV, unspecified formulation 01/24/11 Recorded meningococcal ACWY, unspecified formulat 1 11/22/11 Recorded varicella virus vaccine 11/22/11 Recorded varicella virus vaccine 12/27/02 Recorded influenza, unspecified formulation 02/10/10 Record ed tetanus-diphth toxoids (Td) adult/adol 11/03/04 Re corded Hep B, unspecified formulation 04/15/99 Recorded Hep B, unspecified formulation 07/26/94 Recorded Hep B, unspecified formulation 93 Recorded Hep B, unspecified formulation 93 Recorded polio, unspecified formulation 10/27/98 Recorded polio, unspecified formulation 05/09/95 Recorded polio, unspecified formulation 03/02/94 Recorded polio, unspecified formulation 93 Recorded Hib, unspecified formulation 05/09/95 Recorded Hib, unspecified formulation 05/02/94 Recorded Hib, unspecified formulation 03/02/94 Recorded Hib, unspecified formulation 93 Recorded 1Result Comment: MCV4P Medications chlorthalidone 25 mg oral tablet 25 mg = 1 tab, Oral, Daily, # 30 tab, 0 Refill(s) Start Date: 05/28/24 Status: Ordered Quantity: 30.0 Unit: tab Repeat number: 1 Results Laboratory List Name Date Urinalysis with Micro if Indicated and C ulture if Indicated 05/28/24 CBC w/ Diff 05/28/24 Comprehensive Metabolic Panel (CMP) 05/12 01/02 Beta hCG Quantitative 05/28/24 Automated Diff 05/28/24 Most recent to oldest [Reference Range]: 1 WBC [5.0-10.0 x10^3/mcL] 9.5 x10^3/mcL (05/28/24 9:20 AM) RBC [4.1-5.3 x10^6/mcL] 5.1 x10^6/mcL (05/28/24 9:20 AM) Neutro Auto [40.0-75.0 %] 77.0 % *HI* (05/28/24 9:20 AM) Lymph Auto [20.0-50.0 %] 16.6 % *LOW* (05/28/24 9:20 AM) Mcduffie Auto [2.0-15.0 %] 4.4 % (05/28/24: AM) Basophil Auto [0.0-1.0 %] 0.4 % (05/28/24:20 AM) BUN [7-18 mg/dL] 12 mg/dL (05/28/24 9:20 AM) UA Color Yellow (05/28/24 12:05 PM) Glucose Level [74-106 mg/dL] 94 mg/dL (05/28/24 9:20 AM) Potassium Level [3.5-5.1 mmol/L] 3.8 mmo l/L (05/28/24: AM) MCV [80.0-96.0 fL] 85.5 fL (05/28/24:20 AM) UA Urobilinogen Normal (05/28/24 12:05 PM) UA Bili [Negative] Negative (05/28/24 12:05 PM) UA Ketones Negative (05/28/24 12:05 PM) AST [15-37 unit/L] 12 unit/L *LOW* (05/28/24:20 AM) ALT [14-59 unit/L] 20 unit/L (05/28/24:20 AM) MCHC [31.0-35.0 g/dL] 33.3 g/dL (05/28/24:20 AM) Sodium Level [136-145 mmol/L] 139 mmol/L (05/28/24 9:20 AM) UA Leuk Est Negative (05/28/24 12:05 PM) UA Nitrite Negative (05/28/24 12:05 PM) UA Glucose [Negative] Negative (05/28/24 12:05 PM) Hct [37.0-47.0 %] 43.5 % (05/28/24:20 AM) Calcium Level [8.5-10.1 mg/dL] 9.4 mg/dL (05/28/24 9:20 AM) Albumin Level [3.4-5.0 g/dL] 4.5 g/dL (05/28/24 9:20 AM) Protein Total [6.4-8.2 g/dL] 8.2 g/dL (05/28/24 9:20 AM) UA Protein Negative (05/28/24 12:05 PM) MCH [26.0-32.0 pg] 28.5 pg (05/28/24 9:20 AM) Neutro Absolute 7.3 x10^3/mcL *NA* (05/28/24 9:20 AM) Bilirubin Total [0.2-1.0 mg/dL] 0.4 mg/d L (05/28/24 9:20 AM) Hgb [12.0-16.0 g/dL] 14.5 g/dL (05/28/24 9:20 AM) Alk Phos [46-146 unit/L] 60 unit/L (05/28/24 9:20 AM) UA Blood Negative (05/28/24 12:05 PM) UA Spec Grav <=1.005 *NA* (05/28/24 12:05 PM) Platelets [130-450 x10^3/mcL] 300 x10^3/ mcL (05/28/24 9:20 AM) CO2 [21-32 mmol/L] 27 mmol/L (05/28/24 9:20 AM) UA pH 7.0 *NA* (05/28/24 12:05 PM) eGFR Non-AA [>=60] 84 (05/28/24 9:20 AM) eGFR AA [>=60] 84 (05/28/24 9:20 AM) UA Appear Clear (05/28/24 12:05 PM) Chloride Level [98-107 mmol/L] 102 mmol/ L (05/28/24 9:20 AM) RDW-CV [11.5-14.5 %] 12.8 % (05/28/24 9:20 AM) Imm Gran Auto [0.0-0.9 %] 0.4 % (05/28/24 9:20 AM) Slide Review Not Indicated (05/28/24:20 AM) Creatinine Level [0.55-1.02 mg/dL] 0.94 mg/dL (05/28/24 9:20 AM) Eos, Auto [1.0-6.0 %] 1.2 % (05/28/24 9:20 AM) Beta hCG Qnt [1-6 mIntlUnit/mL] <1 mIntl Unit/mL *LOW* (05/28/24 9:20 AM) Vital Signs Most recent to oldest [Reference Range]: 1 2 3 Temperature Temporal Artery [36-38 Deg C] 36.8 Deg C (05/28/24 3:19 PM) 37.1 Deg C (05/28/24 11:15 AM) 35.8 Deg C *LOW* (05/28/24 9:00 AM) Peripheral Pulse Rate [60-100 bpm] 65 bpm (05/28/24 3:19 PM) 71 bpm (05/28/24 11:15 AM) 92 bpm (05/28/24 9:00 AM) Respiratory Rate [12-24 br/min] 16 br/min (05/28/24 3:19 PM) 16 br/min (05/28/24 11:15 AM) 16 br/min (05/28/24 9:00 AM) Blood Pressure [90-120/60-80 mmHg] 119/83mmHg (05/28/24 3:19 PM) 127/67mmHg *HI* (05/28/24 11:15 AM) 146/83mmHg *HI* (05/28/24 9:00 AM) Mean Arterial Pressure, Cuff [65-140 mmHg] 104 mmHg (05/28/24 9:00 AM) Weight Estimated 74.84 kg (05/28/24 9:00 AM) Body Mass Index Estimated 30.18 kg/m2 (05/28/24 9:00 AM) Height/Length Estimated 157.48 cm (05/28/24 9:00 AM) Social History Social History Type Response Tobacco Never tobacco user T obacco Use:. Sex Sex Representation Female (finding) Hospital Discharge Instructions Patient Education 05/28/2024 14:29:37 Ovarian Cyst Ovarian Cyst An ovarian cyst is a fluid-filled sac that forms on an ovary. The ovaries are small organs that produce eggs in women. Various types of cysts can form on the ovaries. Some may cause symptoms and require treatment. Most ovarian cysts go away on their own, are not cancerous (are benign), and do not cause problems. What are the causes? Ovarian cysts may be caused by: ??? Ovarian hyperstimulation syndrome. This is a condition that can develop from taking fertility medicines. It causes multiple large ovarian cysts to form. ??? Polycystic ovarian syndrome (PCOS). This is a common hormonal disorder that can cause ovarian cysts to form, and can cause problems with your period or fertility. ??? The normal menstrual cycle. What increases the risk? The following factors may make you more likely to develop this condition: ??? Being overweight or obese. ??? Taking fertility medicines. ??? Taking certain forms of hormonal control. ??? Smoking. What are the signs or symptoms? Many ovarian cysts do not cause symptoms. If symptoms are present, they may include: ??? Pelvic pain or pressure. ??? Pain in the lower abdomen. ??? Pain during sex. ??? Abdominal swelling. ??? Abnormal menstrual periods. ??? Increasing pain with menstrual periods. How is this diagnosed? These cysts are commonly found during a routine pelvic exam. You may have tests to find out more about the cyst, such as: ??? Ultrasound. ??? CT scan. ??? MRI. ??? Blood tests. How is this treated? Many ovarian cysts go away on their own without treatment. Your health care provider may want to check your cyst regularly for 2???3 months to see if it changes. If you are in menopause, it is especially important to have your cyst monitored closely because menopausal women have a higher rate of ovarian cancer. When treatment is needed, it may include: ??? Medicines to help relieve pain. ??? A procedure to drain the cyst (aspiration). ??? Surgery to remove the whole cyst (cystectomy). ??? Hormone treatment or control pills. These methods are sometimes used to help keep cysts from coming back. ??? Surgery to remove the ovary (oophorectomy). Follow these instructions at home: ??? Take aeom-yvx-jmjwexi and prescription medicines only as told by your health care provider. ??? Ask your health care provider if any medicine prescribed to you requires you to avoid driving or using machinery. ??? Get regular pelvic exams and Pap tests as often as told by your health care provider. ??? Return to your normal activities as told by your health care provider. Ask your health care provider what activities are safe for you. ??? Do not use any products that contain nicotine or tobacco, such as cigarettes, e-cigarettes, andchewing tobacco. If you need help quitting, ask your health care provider. ??? Keep all follow-up visits. This is important. Contact a health care provider if: ??? Your periods are late, irregular, painful, or they stop. ??? You have pelvic pain that does not go away. ??? You have pressure on your bladder or trouble emptying your bladder completely. ??? You have any of the following: ??? A feeling of fullness. ??? You are gaining weight or losing weight without changing your exercise and eating habits. ??? Pain, swelling, or bloating in the abdomen. ??? Loss of appetite. ??? Pain and pressure in your back and pelvis. ??? You think you may be . Get help right away if: ??? You have abdominal or pelvic pain that is severe or gets worse. ??? You cannot eat or drink without vomiting. ??? You suddenly develop a fever or chills. ??? Your menstrual period is much heavier than usual. Summary ??? An ovarian cyst is a fluid-filled sac that forms on an ovary. ??? Some ovarian cysts may cause symptoms and require treatment. ??? These cysts are commonly found during a routine pelvic exam. ??? Many ovarian cysts go away on their own without treatment. This information is not intended to replace advice given to you by your health care provider. Make sure you discuss any questions you have with your health care provider. Document Revised: 11/05/2020 Document Reviewed: 11/05/2020 [employer] Patient Education ?? 2022 [employer]. Follow Up Care 05/28/2024 08:58:29 With:Rebeca Joe NP Address: [address] [address]- When:1 to 2 weeks Emergency department Discharge instructions * Jonh Blanco MD: PERFORM Event Display: ED Discharge Information Authored Date: [id number] SHAWN LISA :1995 Age:28 years Sex:Female Visit Date:05/28/2024 Primary Care Physician: Rebeca Joe NP Discharge Instructions We would like to thank you for allowing us to assist you with your healthcare needs. The following includes patient education materials and information regarding your injury/illness. Diagnosis from Today's Visit Ovarian cyst Discharge Vitals Temperature??(Temporal Artery) 98.2 ??F (36.8 ??C) Heart Rate??(Peripheral) 65 Respiratory Rate?? 16 Blood Pressure?? 119/83?? SpO2?? 100% Height?? 62.00 in (157.48 cm) Weight??(Estimated) 165.02 lb (74.84 kg) BMI?? 30.18 Allergies No Known Allergies What to Do Next Instructions from Your Care Team You were seen in the emergency department today. ??The pain that you experience was most likely related to a ruptured ovarian cyst. ??There is a bit of fluid??and possibly even a bit of blood within the abdominal cavity??from this, but the good news is that??your CT scan and ultrasound??did not show any acute surgical process or issues.?Please follow-up with your OB physician for further management, otherwise you can take Tylenol and ibuprofen as needed for the pain. ??Come back to the ER with any worsening symptoms You Need to Schedule the Following Appointments Follow Up with??Olayinka [facility], Rebeca Lemons NP When:??Within 1 to 2 weeks Where: [address] [place] [address]- You were treated today on an emergency basis; it may be galindo to contact your primary care provider to notify them of your visit today. You may have been referred to your regular doctor or a specialist, please follow up as instructed. If your condition worsens or you can't get in to see the doctor, contact the Emergency Department. Medications What How Much When Instructions Next Dose Unchanged chlorthalidone (chlorthalidone 25 mg oral tablet) 1 tab Oral (given by mouth) Every day Education Materials Ovarian Cyst An ovarian cyst is a fluid-filled sac that forms on an ovary. The ovaries are small organs that produce eggs in women. Various types of cysts can form on the ovaries. Some may cause symptoms and require treatment. Most ovarian cysts go away on their own, are not cancerous (are benign), and do not cause problems. What are the causes? Ovarian cysts may be caused by: ? Ovarian hyperstimulation syndrome. This is a condition that can develop from taking fertility medicines. It causes multiple large ovarian cysts to form. ? Polycystic ovarian syndrome (PCOS). This is a common hormonal disorder that can cause ovarian cyststo form, and can cause problems with your period or fertility. ? The normal menstrual cycle. What increases the risk? The following factors may make you more likely to develop this condition: ? Being overweight or obese. ? Taking fertility medicines. ? Taking certain forms of hormonal control. ? Smoking. What are the signs or symptoms? Many ovarian cysts do not cause symptoms. If symptoms are present, they may include: ? Pelvic pain or pressure. ? Pain in the lower abdomen. ? Pain during sex. ? Abdominal swelling. ? Abnormal menstrual periods. ? Increasing pain with menstrual periods. How is this diagnosed? These cysts are commonly found during a routine pelvic exam. You may have tests to find out more about the cyst, such as: ? Ultrasound. ? CT scan. ? MRI. ? Blood tests. How is this treated? Many ovarian cysts go away on their own without treatment. Your health care provider may want to check your cyst regularly for 2???3 months to see if it changes. If you are in menopause, it is especially important to have your cyst monitored closely because menopausal women have a higher rate of ovarian cancer. When treatment is needed, it may include: ? Medicines to help relieve pain. ? A procedure to drain the cyst (aspiration). ? Surgery to remove the whole cyst (cystectomy). ? Hormone treatment or control pills. These methods are sometimes used to help keep cysts from coming back. ? Surgery to remove the ovary (oophorectomy). Follow these instructions at home: ? Take ptda-ceo-sbtmknv and prescription medicines only as told by your health care provider. ? Ask your health care provider if any medicine prescribed to you requires you to avoid driving or using machinery. ? Get regular pelvic exams and Pap tests as often as told by your health care provider. ? Return to your normal activities as told by your health care provider. Ask your health care provider what activities are safe for you. ? Do not use any products that contain nicotine or tobacco, such as cigarettes, e- cigarettes, and chewing tobacco. If you need help quitting, ask your health care provider. ? Keep all follow-up visits. This is important. Contact a health care provider if: ? Your periods are late, irregular, painful, or they stop. ? You have pelvic pain that does not go away. ? You have pressure on your bladder or trouble emptying your bladder completely. ? You have any of the following: ? A feeling of fullness. ? You are gaining weight or losing weight without changing your exercise and eating habits. ? Pain, swelling, or bloating in the abdomen. ? Loss of appetite. ? Pain and pressure in your back and pelvis. ? You think you may be . Get help right away if: ? You have abdominal or pelvic pain that is severe or gets worse. ? You cannot eat or drink without vomiting. ? You suddenly develop a fever or chills. ? Your menstrual period is much heavier than usual. Summary ? An ovarian cyst is a fluid-filled sac that forms on an ovary. ? Some ovarian cysts may cause symptoms and require treatment. ? These cysts are commonly found during a routine pelvic exam. ? Many ovarian cysts go away on their own without treatment. This information is not intended to replace advice given to you by your health care provider. Make sure you discuss any questions you have with your health care provider. Document Revised: 11/05/2020 Document Reviewed: 11/05/2020 [employer] Patient Education ?? 2022 [employer] Tests Performed Medications and Immunizations Administered Given NS bolus, 1000 mL, Hydration Bolus Toradol, 15 mg, IV Push Tylenol, 1000 mg, Oral Lab Test Name Test Result Date/Time WBC 9.5 x10^3/mcL 05/28/2024 09:20 EST RBC 5.1 x10^6/mcL 05/28/2024 09:20 EST Hgb 14.5 g/dL 05/28/2024 09:20 EST Hct 43.5 % 05/28/2024 09:20 EST MCV 85.5 fL 05/28/2024 09:20 EST MCH 28.5 pg 05/28/2024 09:20 EST MCHC 33.3 g/dL 05/28/2024 09:20 EST RDW-CV 12.8 % 05/28/2024 09:20 EST Platelets 300 x10^3/mcL 05/28/2024 09:20 EST Neutro Auto 77.0 % 05/28/2024 09:20 EST Lymph Auto 16.6 % 05/28/2024 09:20 EST Mcduffie Auto 4.4 % 05/28/2024 09:20 EST Eos, Auto 1.2 % 05/28/2024 09:20 EST Basophil Auto 0.4 % 05/28/2024 09:20 EST Imm Gran Auto 0.4 % 05/28/2024 09:20 EST Neutro Absolute 7.3 x10^3/mcL 05/28/2024 09:20 EST Slide Review Not Indicated 05/28/2024 09:20 EST Sodium Level 139 mmol/L 05/28/2024 09:20 EST Potassium Level 3.8 mmol/L 05/28/2024 09:20 EST Chloride Level 102 mmol/L 05/28/2024 09:20 EST CO2 27 mmol/L 05/28/2024 09:20 EST Alk Phos 60 unit/L 05/28/2024 09:20 EST AST 12 unit/L 05/28/2024 09:20 EST ALT 20 unit/L 05/28/2024 09:20 EST BUN 12 mg/dL 05/28/2024 09:20 EST Glucose Level 94 mg/dL 05/28/2024 09:20 EST Creatinine Level 0.94 mg/dL 05/28/2024 09:20 EST eGFR AA 84 05/28/2024 09:20 EST eGFR Non-AA 84 05/28/2024 09:20 EST Calcium Level 9.4 mg/dL 05/28/2024 09:20 EST Protein Total 8.2 g/dL 05/28/2024 09:20 EST Albumin Level 4.5 g/dL 05/28/2024 09:20 EST Bilirubin Total 0.4 mg/dL 05/28/2024 09:20 EST Beta hCG Qnt <1 mIntlUnit/mL 05/28/2024 09:20 EST UA Color YELLOW. 05/28/2024 12:05 EST UA Appear CLEAR. 05/28/2024 12:05 EST UA Glucose NEGATIVE 05/28/2024 12:05 EST UA Bili NEGATIVE 05/28/2024 12:05 EST UA Ketones NEGATIVE 05/28/2024 12:05 EST UA Spec Grav <=1.005 05/28/2024 12:05 EST UA Blood NEGATIVE 05/28/2024 12:05 EST UA pH 7.0 05/28/2024 12:05 EST UA Protein NEGATIVE 05/28/2024 12:05 EST UA Urobilinogen 0.2 Uro 05/28/2024 12:05 EST UA Nitrite NEGATIVE 05/28/2024 12:05 EST UA Leuk Est NEGATIVE 05/28/2024 12:05 EST Patient/Psychologist Chief Signature Patient Name:SHAWN LISA I have received this information and my questions have been answered. Patient/Psychologist Chief Name: Patient/Psychologist Chief Signature: Relationship to Patient: Witness Name/Signature: Date: Electronically Signed on: 05/28/2024 15:30 ESTSigned by:TRM Discharge summary * Carlton Parsons: PERFORM Event Display: Discharge Summary Authored Date: [id number] Patient Care team information Care Team Personnel Name: Olayinka DRUMMOND, Rebeca Lemons PARLOR CHAPERONE Position: No Access Member Role: Informed Provider Address: [address] Telecom: Care Team Related Persons Name: KHURRAM LISA Insurance Providers Guarantor name: SHAWN LISA Health Plan Information #: 1 Payer: [employer] Member Number: [id number] Policy Number: NA Group Number: [id number] Health Plan Information #: 2 [facility] Member Number: [id number] Policy Number: NA Group Number: [id number]
--- OUTSIDE RECORDS SUMMARY | 2024-06-26 16:43 | XMS_ITS | Encounter Summary ---
Author Organization [facility] [place] [address] Care Team Providers Care Engineering Clerk Name Role Phone Shaneka Mae APRN Primary Care Provider [phone] Encounter Details Date Type Department Care Team (Latest Contact Info) Description 08/08/2018 Encounter Social History Tobacco Use Types Packs/Day [...] * Note - Leigha Alcazar RN - 08/08/2018 10:00 AM EST This note was copied from a baby's chart. Spoke with Carol at bedside. She said she is now only pumping 20cc/pumping. She is pleased she is still pumping this much at 7 weeks Discussed herbal galactagogues and medications. Encouraged her to talk with her provider about them. Discussed that it was beneficial for Tatiana to even get partial breastfeeds. Encouraged STS, and explained she can let Tatiana lick drops, or she can express gtts onto her fingerand let Tatiana suck them off Continue to follow closely Leigha Alcazar RN IBCLC [facility] documented in this encounter Plan of Treatment Not on file documented as of this encounter Visit Diagnoses Not on filedocumented in this encounter Care Teams Engineering Clerk Relationship Specialty Start Date End Date Shaneka Mae APRN PCP - General Family Medicine 06/13/18 01/09/19 documented as of this encounter
--- OUTSIDE RECORDS SUMMARY | 2024-06-26 16:43 | XMS_ITS | Encounter Summary ---
Author Organization [facility] [place] [address] Care Team Providers Care Glass Cutting Machine Feeder Name Role Phone Shaneka Mae APRN Primary Care Provider [phone] Encounter Details Date Type Department Care Team (Latest Contact Info) Description 07/30/2018 Encounter Social History Tobacco Use Types Packs/Day [...] * Note - Jaimie Motley RN - 07/30/2018 5:13 PM EST This note was copied from a baby's chart. I touched base with this mom. She pumps about 3 times in a 24 hour day. She obtains ~ 50 cc's a session. At this time she realizes that she will not have a full milk supply for this baby, but this isworking for her and her family. She is aware is available for support as needed. documented in this encounter Plan of Treatment Not on file documented as of this encounter Visit Diagnoses Not on filedocumented in this encounter Care Teams Glass Cutting Machine Feeder Relationship Specialty Start Date End Date Shaneka Mae APRN PCP - General Family Medicine 06/13/18 01/09/19 documented as of this encounter
--- OUTSIDE RECORDS SUMMARY | 2024-06-26 16:44 | XMS_ITS | Encounter Summary ---
Author Organization [facility], Located Within [facility] [place] [address] Care Team Providers Care Delivery Of [employer] Name Role Phone Shaneka Mae APRN Primary Care Provider [phone] Reason for Visit * Reason Comments Hypertension * Auth/Cert Specialty Diagnoses / Procedures Referred By Contac t Referred To Contact Diagnoses Preeclampsia, severe, second trimester 03/11 WITH SEVERE PRE ECLAMPSIA Procedures EMERGENCY IPI Referral ID Status Reason Start Date Expiration Date Visits Re quested Visits Authorized [id number] 1 1 Encounter Details Date Type Department Care Team (Latest Contact Info) Description 06/13/2018 12:59 PM EST - 06/21/2018 10:30 AM [facility] [place] [id number] Severo Drake MD [facility] [place] [address] Discharge Disposition: Home Social History Tobacco Use Types Packs/Day Years [...] Sign Reading Time Taken Comments Blood Pressure 150/103 06/21/2018 9:38 AM EST pt endorses feeling stressed about baby in ICN Pulse 78 06/21/2018 9:38 AM EST Temperature 37.6 ??C (99.7 ??F) 06/21/2018 9 :38 AM EST Respiratory Rate 16 06/21/2018 9:38 AM EST Oxygen Saturation 100% 06/21/2018 9:3 7 AM EST Inhaled Oxygen Concentration - - Weight 83.5 kg (184 lb 1.6 oz) 06/17/2018 4:50 AM EST Height 162.6 cm (5' 4.02) 06/14/2018 5 :00 PM EST Body Mass Index 31.58 06/14/2018 5:00 PM EST documented in this encounter Discharge Summaries * Scooter Canales MD - 06/21/2018 9:36 AM EST Images from the original note were not included. Discharge Summary Patient Name: Shawn Lisa Patient Age: 22 y.o. Language: Estonian Race: White Ethnicity: Not nor Admit date: 06/13/2018 Discharge date and time: 06/21/18 Attending Physician: Severo Drake MD Discharge Physician: Almaz Drake MD Care Provider: [facility] Referring Hospital: [facility] Follow-up Recommendations for Providers: Blood pressure checks days 3 and 7 Routine six week visit Inpatient Provider Contact Information: [facility] [employer] Department, Discharge Diagnoses (Hospital Problems) and Secondary Diagnoses (Chronic Problems) Active Hospital Problems Diagnosis ??? Preeclampsia, severe, second trimester ??? Hx of section X2 ??? History of delivery with first at 28w at [facility] for preeclampsia with severe features ??? History of gestational hypertension in second , delivered at [facility] at 37w4d Resolved Hospital Problems No resolved problems to display. There are no active non-hospital problems to display for this patient. Operations/Major Procedures: Repeat section with tubal ligation 06/18/18 Indication for Admission: preeclampsia with severe features History of Presentation: Chief Complaint: Shawn Lisa was admitted today secondary to preeclampsia with severe features by blood pressure. ?? Shawn Lisa is a 22 y.o. at 25w5d weeks gestation by 8w US. She is admitted in transport from [facility] for management of preeclampsia with severe features by blood pressure. She was admitted at [facility] on 06/06/2018 for blood pressure management. Her labs at that time were notable for creatinine 0.6, AST 16, UPC 4.09, 24 hour urine 2327 grams. She received a course of betamethasone at that time. She was started on labetalol 600 mg BID and nifedipine 30mg daily. ?? She represented to the hospital today due to a headache and was found to have severe range blood pressures. She received Magnesium for seizure prophylaxis and was transported to [facility] for further evaluation. ?? Her has been complicated by: 1. History of prior delivery x 2 2. History of preeclampsia with severe features, delivery at 28w at [facility], [place] 3. History of gestational hypertension with delivery at 37w at [facility], [place] 4. Asthma Hospital Course Including Delivery and Events The patient was admitted for management of preeclampsia with severe features by blood pressures. She received 24 hours of magnesium for neuroprotection. She was continued on Labetalol 600 mg BID and nifedipine 30 mg daily. On HD#2, the patient reported a headache with onset associated with nifedipine therefore her nifedipine 30 mg daily was discontinued. Formal ultrasound was obtained which showed IUGR with EFW in the 6%tile and umbilical artery dopplers with persistent absent end diastolic flow. Given these new findings of growth restriction, status was closely monitored with twice weekly umbilical artery dopplers and daily biophysical profiles. She received a course of betamethasone and magnesium for neuprotection. Decision was made to proceed with a repeat section and tubal ligation on HD#6 secondary to severe range blood pressures and persistent headache. Patient underwent uncomplicated repeat section with classical incision. Viable female . APGARS of 4 and 8. Weight of 600g. Cord blood was taken and cord gases were obtained. Blood lossestimated at 500ccs. Please see op note for further details. The patient recovered well following section. Her hemoglobin declined appropriately from 12.7 pre-op to 10.7 on POD#1. Her aguilar catheter was removed on POD#1 and she was able to void spontaneously. Magnesium was continued for 24 hours after delivery and her blood pressures remained stablewithout hypertensive medications. Her bandage was removed on POD#2 and her incision appeared to be h ealing well. By the day of discharge, the patient was eating, drinking, voiding, passing flatus, and ambulating without difficulty. She was pumping for nutrition for her infant in the NICU and underwent tubal ligation at the time of her for contraception. Her pain was controlled with PO pain medications and her lochia was mild. She denied F/C/N/V/CP/SOB/QUESADA/leg pain. Discharge instructions were reviewed with the patient and all questions answered. She was encouraged to follow up for a 6week visit. She was discharged to home on POD#3 in good spirits. The patient did not desire a prescription for narcotics at time of discharge. Her pain was well controlled on tylenol and ibuprofen. Delivery Information Information for the patient's : Aleyda Lisa [[id number]] INFORMATION Aleyda Lisa 06/18/2018 11:15 AM by Upper Segment Vertical Sex: female Gestational Age: 26w3d [place] Measurements: Weight: 1 lb 5.2 oz (600 g) APGARS One Minute Five Minutes Ten Minutes Totals: 4 8 EBL: 500mL Vital signs at Discharge: BP: (!) 153/108(ICN at bedside, doing poorly. Dr Hicks and Solange aware), Heart Rate: 72, Temp: 37.3 ??C (99.1 ??F), Resp: 16, BMI (Calculated): 32.27 Height: 162.6 cm (5' 4.02) (06/14/18 1700) Weight: 83.5 kg (184 lb 1.6 oz) (06/17/18 0450) Functional and Cognitive status: Intact at baseline Important Studies and Lab Data: Labs: Recent Labs 06/19/18 0832 06/18/18201906/18/18 0830 WBC 16.7* 22.5* 12.7* HGB 10.7* 11.1* 13.1 HCT 30.5* 32.3* 36.9 PLATELET 196 199 212 Recent Labs 06/19/18 0832 06/18/18201906/18/18 0830 CREATININE 0.61* 0.58* 0.65* Recent Labs 06/18/18201906/18/18 0830 06/18/18 0230 AST 18 16 16 Recent Results (from the past 72 hour(s)) ABO/Rh Typing Result Value Ref Range ABORh Type A Pos Antibody screen Result Value Ref Range Ab Screen Interp Negative Expires at 2359 on: 06/21/2018 ABORH Recheck Status Result Value Ref Range ABORH Type Recheck Completed Aspartate Aminotransferase Result Value Ref Range AST 18 0 - 30 unit/L Creatinine Result Value Ref Range Creatinine 0.58 (L) 0.70 - 1.20 mg/dL eGFR 129 >=60 mL/min/1.73 m?? eGFR 150 >=60 mL/min/1.73 m?? Hemogram Result Value Ref Range WBC 22.5 (H) 4.0 - 9.5 x10(3)/mcL RBC 3.67 (L) 4.00 - 5.21 x10(6)/mcL Hemoglobin 11.1 (L) 11.7 - 15.5 gm/dL Hematocrit 32.3 (L) 35.7 - 45.8 % MCV 88.0 82.6 - 94.4 fL MCH 30.2 27.1 - 32.0 pg MCHC 34.4 31.7 - 35.0 gm/dL Platelets 199 145 - 357 x10(3)/mcL RDWSD 41.3 37.0 - 46.0 fL RDWCV 12.8 11.5 - 14.1 % MPV 11.8 7.6 - 12.9 fL nRBC % Auto 0.0 % nRBC Abs Auto 0.000 0.000 - 0.000 x10(3)/mcL Differential, Automated Result Value Ref Range Neutrophils % 86.7 % Neutr Abs (ANC) 19.52 (H) 1.70 - 6.10 x10(3)/mcL Lymphocytes % 7.9 % Lymphocytes Abs 1.8 0.9 - 3.2 x10(3)/mcL Monocytes % 3.7 % Monocyte Abs 0.8 0.3 - 0.9 x10(3)/mcL Eosinophils % 0.3 % Eosinophils Abs 0.1 0.0 - 0.4 x10(3)/mcL Basophils % 0.4 % Basophils Abs 0.1 0.0 - 0.1 x10(3)/mcL Immature Gran % 1.00 % Yarely Gran Abs 0.22 (H) 0.00 - 0.04 x10(3)/mcL Creatinine Result Value Ref Range Creatinine 0.61 (L) 0.70 - 1.20 mg/dL eGFR 127 >=60 mL/min/1.73 m?? eGFR 147 >=60 mL/min/1.73 m?? Hemogram Result Value Ref Range WBC 16.7 (H) 4.0 - 9.5 x10(3)/mcL RBC 3.49 (L) 4.00 - 5.21 x10(6)/mcL Hemoglobin 10.7 (L) 11.7 - 15.5 gm/dL Hematocrit 30.5 (L) 35.7 - 45.8 % MCV 87.4 82.6 - 94.4 fL MCH 30.7 27.1 - 32.0 pg MCHC 35.1 (H) 31.7 - 35.0 gm/dL Platelets 196 145 - 357 x10(3)/mcL RDWSD 41.4 37.0 - 46.0 fL RDWCV 12.9 11.5 - 14.1 % MPV 11.4 7.6 - 12.9 fL nRBC % Auto 0.0 % nRBC Abs Auto 0.000 0.000 - 0.000 x10(3)/mcL Differential, Automated Result Value Ref Range Neutrophils % 81.3 % Neutr Abs (ANC) 13.60 (H) 1.70 - 6.10 x10(3)/mcL Lymphocytes % 13.0 % Lymphocytes Abs 2.2 0.9 - 3.2 x10(3)/mcL Monocytes % 4.2 % Monocyte Abs 0.7 0.3 - 0.9 x10(3)/mcL Eosinophils % 0.5 % Eosinophils Abs 0.1 0.0 - 0.4 x10(3)/mcL Basophils % 0.4 % Basophils Abs 0.1 0.0 - 0.1 x10(3)/mcL Immature Gran % 0.60 % Yarely Gran Abs 0.10 (H) 0.00 - 0.04 x10(3)/mcL Studies: none Pending Studies and Lab Data: none Discharge Conditions/Prognosis: good Discharge to: Home Contraceptive Plans: bilateral tubal ligation Allergies at Discharge: No Known Allergies Immunizations Given this Hospitalization: Immunization History Administered Date(s) Administered ??? Influenza Vaccine, Whole 02/10/2010 ??? MMR Vaccine, Live 07/22/2013 ??? Tdap Vaccine 08/02/2010, 06/24/2013, 06/14/2018 Discharge Medications: Your Medications New Medications Dose Details acetaminophen 325 mg Tab Commonly known as: TYLENOL Take 2 tablets by mouth every 6 hours as needed for Pain. 650 mg Quantity: 30 tablet Refills: 0 docusate sodium 100 mg Cap Commonly known as: COLACE Take 1 capsule by mouth 2 times daily for 10 days. 100 mg Quantity: 20 capsule Refills: 0 ibuprofen 200 mg Tab Commonly known as: ADVIL;MOTRIN Take 3 tablets by mouth every 6 hours as needed for Pain. 600 mg Quantity: 30 tablet Refills: 0 oxyCODONE 5 mg Tab Commonly known as: ROXICODONE Take 1 tablet by mouth every 6 hours as needed for Pain. 5 mg Quantity: 10 tablet Refills: 0 UNREVIEWED medications - Discuss With Your Provider Dose Details qmxfjvnuei-arbsbjhcosmin-schrkwhv 50-325-40 mg Tab Commonly known as: FIORICET, ESGIC Take 2 tablets by mouth every 4 hours as needed for Pain. 2 tablet Quantity: 10 tablet Refills: 0 levonorgestrel 20 mcg/24 hr (5 years) Iud Commonly known as: MIRENA 1 each by Intrauterine route once. 1 each Refills: 0 Smoking Status at Discharge: Social History Tobacco Use Smoking Status Never Smoker Smokeless Tobacco Never Used Instructions Given to Patient at Discharge: Patient Instructions Nursing Inpatient Progress C - Section Follow-up Follow-up: 6 week visit ? will be scheduled with your primary OB provider ? please call to schedule with your primary OB provider Maternal Discharge Instructions Rest: Although it may seem impossible to get enough rest, simple planning will help. Plan to rest and/or sleep when your baby does. Limiting visitors also helps. Other family members can help by doing housework, caring for other children and/or helping limit visitors. Activity: After delivery, it is safe to climb stairs at home and gradually increase your activity level. Do not drive for two weeks or while taking narcotic pain medicine as your reaction time may be decreased. Do not lift more than 15 pounds for 6 weeks and no swimming until the vaginal bleeding stops. Nutrition: Your diet following the of your baby is as important as it was before the baby wasborn. Drinking a minimum of 6-8 glasses of water a day will help keep you hydrated. Continue takingyour vitamins until you are no longer . Continue taking stool softeners as recommended by the doctor. Do not attempt to lose weight during the first six weeks. Sweating. Hormonal changes following delivery frequently cause night sweats which are normal over the next 6 weeks. Sleeping on towels and using a fan may make you more comfortable. Incision: Wash the incision with soap and water and pat dry. It is normal to have clear or pinkish fluid seep from the incision. Gauze pads or sanitary napkins may help to keep the incision dry if itis located in a fold under your tummy. After 7-10 days remove any steri-strips which may still be over your incision. If the incision has more redness, yellow drainage, or becomes more painful, contact the obstetrics clinic. Lochia: (Flow) Your flow should be no heavier than a normal period. It will be bright red and then transition to pink, brown, yellow, and finally colorless. This may last a few weeks. If your vaginalbleeding becomes bright red again, decrease your activity. We recommend pelvic rest until your bleeding and spotting stops and your episiotomy or vaginal tearhas healed. This may take up to six weeks. Pelvic rest includes activities such as douching, use oftampons/menstrual cups or sexual intercourse. Perineum: For about a week continue to rinse yourself with warm water when you use the toilet. A sitz bath with Epsom salt taken 2 times a day and use of witch katlin may help relieve soreness. Kegel exercise, done regularly throughout the day, will help tighten the perineal muscles and speed recovery. Breast Care for Formula feeding mothers: Wear a well-fitting bra to support your breasts. Ice packsto your breasts (10 minutes at a time) as well as alternating Tylenol and Ibuprofen may be used to relieve discomfort from engorgement. Avoid stimulating your breasts: Do not let warm water from the shower fall directly on your breast;do not express any colostrum; avoid holding your baby near your breasts until your milk begins to decrease and engorgement is relieved. Breast Care for mothers: Practice careful positioning and frequent feeding as demonstrated in the hospital. The printed information in your packet covers this in detail. For More Information: https://www.acog.org/Patients or refer to [employer]???s Your and Childbirth: Month to Month book which you may have received from the OB Clinic. Call your doctor or manager store for: ??? Seizure (call 911) ??? Headache which isn???t relieved with Tylenol ??? Headache with visual changes ??? Pain in your chest ??? Shortness of breath ??? Pain in upper right abdomen ??? Fever more than 100.4 ??? Breast with hot, hard, tender areas on the breast plus flu-like symptom ??? Increased abdominal pain, nausea, shaking chills ??? Increased redness or soreness over your incision/ incision isn???t healing ??? Heavy bleeding that saturates a pad an hour ??? Clots larger than an egg ??? Red or swollen leg which is painful or warm to the touch ??? depression occurs in a large percentage of women. We encourage you to contact your provider or a member of the nursing staff if you are feeling so overwhelmed that you are unable to care for yourself or your baby. Keep your follow up appointment. You may call the [facility] at any time for guidance or for answers to questions that come up prior to you follow up appointment. Your [facility] Provider can be reached during office hours at ??? Midwives ??? Obstetricians ??? Services AFTER OFFICE HOURS for the traffic control operator or manager store environmental sampler General Instructions None Discharge References/Attachments None documented in this encounter Discharge Instructions * Discharge Instructions* Cheyenne Addison RN - 06/21/2018 9:41 AM EST Images from the original note were not included. Nursing Inpatient Progress C - Section Follow-up Follow-up: 6 week visit ? will be scheduled with your primary OB provider ? please call to schedule with your primary OB provider Maternal Discharge Instructions Rest: Although it may seem impossible to get enough rest, simple planning will help. Plan to rest and/or sleep when your baby does. Limiting visitors also helps. Other family members can help by doing housework, caring for other children and/or helping limit visitors. Activity: After delivery, it is safe to climb stairs at home and gradually increase your activity level. Do not drive for two weeks or while taking narcotic pain medicine as your reaction time may be decreased. Do not lift more than 15 pounds for 6 weeks and no swimming until the vaginal bleeding stops. Nutrition: Your diet following the of your baby is as important as it was before the baby wasborn. Drinking a minimum of 6-8 glasses of water a day will help keep you hydrated. Continue takingyour vitamins until you are no longer . Continue taking stool softeners as recommended by the doctor. Do not attempt to lose weight during the first six weeks. Sweating. Hormonal changes following delivery frequently cause night sweats which are normal over the next 6 weeks. Sleeping on towels and using a fan may make you more comfortable. Incision: Wash the incision with soap and water and pat dry. It is normal to have clear or pinkish fluid seep from the incision. Gauze pads or sanitary napkins may help to keep the incision dry if itis located in a fold under your tummy. After 7-10 days remove any steri-strips which may still be over your incision. If the incision has more redness, yellow drainage, or becomes more painful, contact the obstetrics clinic. Lochia: (Flow) Your flow should be no heavier than a normal period. It will be bright red and then transition to pink, brown, yellow, and finally colorless. This may last a few weeks. If your vaginalbleeding becomes bright red again, decrease your activity. We recommend pelvic rest until your bleeding and spotting stops and your episiotomy or vaginal tearhas healed. This may take up to six weeks. Pelvic rest includes activities such as douching, use oftampons/menstrual cups or sexual intercourse. Perineum: For about a week continue to rinse yourself with warm water when you use the toilet. A sitz bath with Epsom salt taken 2 times a day and use of witch katlin may help relieve soreness. Kegel exercise, done regularly throughout the day, will help tighten the perineal muscles and speed recovery. Breast Care for Formula feeding mothers: Wear a well-fitting bra to support your breasts. Ice packsto your breasts (10 minutes at a time) as well as alternating Tylenol and Ibuprofen may be used to relieve discomfort from engorgement. Avoid stimulating your breasts: Do not let warm water from the shower fall directly on your breast;do not express any colostrum; avoid holding your baby near your breasts until your milk begins to decrease and engorgement is relieved. Breast Care for mothers: Practice careful positioning and frequent feeding as demonstrated in the hospital. The printed information in your packet covers this in detail. For More Information: https://www.acog.org/Patients or refer to [facility]s Your and Childbirth: Month to Month book which you may have received from the OB Clinic. Call your doctor or manager store for: ??? Seizure (call 911) ??? Headache which isn???t relieved with Tylenol ??? Headache with visual changes ??? Pain in your chest ??? Shortness of breath ??? Pain in upper right abdomen ??? Fever more than 100.5 ??? Breast with hot, hard, tender areas on the breast plus flu-like symptom ??? Increased abdominal pain, nausea, shaking chills ??? Increased redness or soreness over your incision/ incision isn???t healing ??? Heavy bleeding that saturates a pad an hour ??? Clots larger than an egg ??? Red or swollen leg which is painful or warm to the touch ??? depression occurs in a large percentage of women. We encourage you to contact your provider or a member of the nursing staff if you are feeling so overwhelmed that you are unable to care for yourself or your baby. Keep your follow up appointment. [facility] at any time for guidance or for answers to questions that come up prior to you follow up appointment. Your [facility] Provider can be reached during office hours at ??? Midwives ??? Obstetricians ??? Services AFTER OFFICE HOURS for the traffic control operator or manager store environmental sampler Provider electronic signature confirms that discharge instructions were reviewed with the patient. A copy was printed and given to the patient. * Patient Instructions* Sunshine Zhao MD - 06/18/2018 6:59 PM EST Images from the original note were not included. Nursing Inpatient Progress C - Section Follow-up Follow-up: 6 week visit ? will be scheduled with your primary OB provider ? please call to schedule with your primary OB provider Maternal Discharge Instructions Rest: Although it may seem impossible to get enough rest, simple planning will help. Plan to rest and/or sleep when your baby does. Limiting visitors also helps. Other family members can help by doing housework, caring for other children and/or helping limit visitors. Activity: After delivery, it is safe to climb stairs at home and gradually increase your activity level. Do not drive for two weeks or while taking narcotic pain medicine as your reaction time may be decreased. Do not lift more than 15 pounds for 6 weeks and no swimming until the vaginal bleeding stops. Nutrition: Your diet following the of your baby is as important as it was before the baby wasborn. Drinking a minimum of 6-8 glasses of water a day will help keep you hydrated. Continue takingyour vitamins until you are no longer . Continue taking stool softeners as recommended by the doctor. Do not attempt to lose weight during the first six weeks. Sweating. Hormonal changes following delivery frequently cause night sweats which are normal over the next 6 weeks. Sleeping on towels and using a fan may make you more comfortable. Incision: Wash the incision with soap and water and pat dry. It is normal to have clear or pinkish fluid seep from the incision. Gauze pads or sanitary napkins may help to keep the incision dry if itis located in a fold under your tummy. After 7-10 days remove any steri-strips which may still be over your incision. If the incision has more redness, yellow drainage, or becomes more painful, contact the obstetrics clinic. Lochia: (Flow) Your flow should be no heavier than a normal period. It will be bright red and then transition to pink, brown, yellow, and finally colorless. This may last a few weeks. If your vaginalbleeding becomes bright red again, decrease your activity. We recommend pelvic rest until your bleeding and spotting stops and your episiotomy or vaginal tearhas healed. This may take up to six weeks. Pelvic rest includes activities such as douching, use oftampons/menstrual cups or sexual intercourse. Perineum: For about a week continue to rinse yourself with warm water when you use the toilet. A sitz bath with Epsom salt taken 2 times a day and use of witch katlin may help relieve soreness. Kegel exercise, done regularly throughout the day, will help tighten the perineal muscles and speed recovery. Breast Care for Formula feeding mothers: Wear a well-fitting bra to support your breasts. Ice packsto your breasts (10 minutes at a time) as well as alternating Tylenol and Ibuprofen may be used to relieve discomfort from engorgement. Avoid stimulating your breasts: Do not let warm water from the shower fall directly on your breast;do not express any colostrum; avoid holding your baby near your breasts until your milk begins to decrease and engorgement is relieved. Breast Care for mothers: Practice careful positioning and frequent feeding as demonstrated in the hospital. The printed information in your packet covers this in detail. For More Information: [email or web address].[email or web address] or refer to [facility]???s Your and Childbirth: Month to Month book which you may have received from the OB Clinic. Call your doctor or manager store for: ??? Seizure (call 911) ??? Headache which isn???t relieved with Tylenol ??? Headache with visual changes ??? Pain in your chest ??? Shortness of breath ??? Pain in upper right abdomen ??? Fever more than 100.4 ??? Breast with hot, hard, tender areas on the breast plus flu-like symptom ??? Increased abdominal pain, nausea, shaking chills ??? Increased redness or soreness over your incision/ incision isn???t healing ??? Heavy bleeding that saturates a pad an hour ??? Clots larger than an egg ??? Red or swollen leg which is painful or warm to the touch ??? depression occurs in a large percentage of women. We encourage you to contact your provider or a member of the nursing staff if you are feeling so overwhelmed that you are unable to care for yourself or your baby. Keep your follow up appointment. You may call the [facility] at any time for guidance or for answers to questions that come up prior to you follow up appointment. Your [facility] Provider can be reached during office hours at ??? Midwives ??? Obstetricians ??? Services AFTER OFFICE HOURS for the traffic control operator or manager store environmental sampler documented in this encounter Medications at Time of Discharge Medication Sig Dispensed Refills Start Date End Date acetaminophen (TYLENOL) 325 mg Tablet Take 2 tablets by mouth every 6 hours as needed for Pain. 30 tablet 06/21/2018 ibuprofen (ADVIL;MOTRIN) 200 mg Tablet Take 3 tablets by mouth every 6 hours as needed for Pain. 30 tablet 06/21/2018 butalbital-acetaminophe n-caffeine (FIORICET, ESGIC) per tablet Take 2 tablets by mouth every 4 hours as needed for Pain. 10 tablet 0 06/14/2013 docusate sodium (COLACE) 100 mg Capsule Take 1 capsule by mouth 2 times daily for 10 days. 20 capsule 06/21/2018 07/01/2018 documented as of this encounter Progress Notes * Kalia Pedersen - 06/21/2018 10:25 AM EST Nutrition Services - Initial Note Shawn Lisa : 1995 AGE: 22 y.o. Patient Active Problem List Diagnosis Date Noted ??? Hospital-Preeclampsia, severe, second trimester 06/13/2018 ??? Hospital-Hx of section X2 06/13/2018 ??? Hospital-History of delivery with first at 28w at [facility] for preeclampsia with severe features 06/13/2018 ??? Hospital-History of gestational hypertension in second , delivered at [facility] at 37w4d 06/13/2018 Reason for Nutrition Intervention: Hospital Day 9 Diet Order: Regular Appetite: Good-per pt Food allergies: NKFA Chewing/Swallowing difficulty: none noted. Ht Readings from Last 3 Encounters: 06/14/18 162.6 cm (5' 4.02) 09/02/13 162.6 cm (5' 4) (45 %)* 07/19/13 162.6 cm (5' 4) (45 %)* * Growth percentiles are based on CDC (Girls, 2-20 Years) data. Wt Readings from Last 3 Encounters: 06/17/18 83.5 kg (184 lb 1.6 oz) 09/02/13 74.4 kg (164 lb) (89 %)* 07/19/13 85.3 kg (188 lb) (96 %)* * Growth percentiles are based on CDC (Girls, 2-20 Years) data. Body mass index is 31.58 kg/m??. Vitamins/Minerals: noted. Tums noted. Assessment: Patient seen regarding hospital LOS. Ux Lead introduced self and role. Patient made aware of her current diet order w/o questions. She reported a good appetite without difficulty chewing or swallowing. She is tolerating her current diet without nausea or vomiting. Patient declined open containers and cut up foods with meals. Pt is ordering her meals daily w/o questions. Ux Lead providedpt with a cafeteria menu to give patient additional ordering options. Patient is aware of the unit kitchenette and the available snacks. Patient had no further questions at this time. Encouraged patient to contact Food and Nutrition services with any questions that may arise. Nutrition Plan: Continue current diet. Cafeteria menu weekly. Monitor weight. Encourage good po intake. Support and encouragement provided. Nutrition services to follow weekly thru hospital course unless consulted in the interim. ELVIS Fontaine * Cheyenne Addison RN - 06/21/2018 10:14 AM EST Patient is ready for discharge. AVS reviewed with patient who verbalizes understanding of dischargeinstructions, reasons to call and follow up. No IV present at this time. Patient discharged. * Sunshine Zhao MD - 06/21/2018 5:59 AM EST Delivery Note Patient ID: Shawn Lisa is a 22 y.o. year old who is postop day #3 after repeat C/S and BTL at 26w3d for pre-eclampsia with severe features by persistent headache and blood pressures. S: The patient complains of nothing. Pain is well controlled. Pumping and using donor milk for infant nutrition without difficulty. Ambulating without weakness/dizziness, tolerating a regular diet without nausea/vomiting, voiding spontaneously. Lochia minimal. Patient had BTL for contraception. O: Last value Range last 24 hrs Temperature Temp: 37.3 ??C (99.1 ??F) Temp: [37.2 ??C (99 ??F)-37.5 ??C (99.5 ??F)] Heart Rate Heart Rate: 72 Heart Rate: [71-95] Blood Pressure BP: (!) 153/108(ICN at bedside, infant doing poorly.) BP: (137-153)/(84-108) Respiratory Rate Resp: 16 Resp: [16-17] SpO2 SpO2: 100 % SpO2: [97 %-100 %] Intake/Output Summary (Last 24 hours) at 06/21/2018 0559 Last data filed at 06/21/2018 0131 Gross per 24 hour Intake 400 ml Output 1100 ml Net -700 ml Exam: Gen: appears well, in no acute distress. Cardiac: RRR, S1, S2, no rub/gallop/murmur. Pulmonary: CTAB, no rales, wheeze/rhonchi. Abdomen: Soft, symmetric, appropriately tender at incision, BS active, no rebound/guarding Uterus: firm, 4 cm below umbilicus Dressing removed. Incision well approximated with sterri strips with some dried serosanguinous discharge. Extremities: nontender, no edema. Labs: Recent Labs 06/19/18 0832 06/18/18201919 0830 WBC 16.7* 22.5* 12.7* HGB 10.7* 11.1* 13.1 HCT 30.5* 32.3* 36.9 PLATELET 196 199 212 Recent Labs 06/19/18 0832 06/18/18201906/18/18 0830 CREATININE 0.61* 0.58* 0.65* Assessment: POD#3 Patient doing well without issues. Postoperative hemoglobin appropriate and consistent with estimated blood loss from 11.1 to 10.7. Otherwise no issues; anticipate discharge on postop day #3. Other Medical Issues/Concerns: ?? Pre-Eclampsia with severe features: labs within normal limits on POD#1 and now discontinued. S/ppostpartum magne.sium. Patient was taking labetalol 600 mg TID in the antepartum period, labetalol decreased to 400mg BID on POD#0 and now discontinued. Will continue to monitor blood pressures and assess need for anti-hypertensives. ?? Asthma Plan: ?? Continue routine care. ?? BTL for contraception ?? Pumping/Donor Milk for infant nutrition without concerns ?? Follow-up: 6 week follow up, BP checks days 3 and 7. This patient was seen and discussed on rounds. Sunshine Zhao MD PGY1 06/21/2018 Associated attestation - Severo Drake MD - 06/21/2018 9:20 AM EST The patient had a due to severe preeclampsia. I personally saw and evaluated the patient during morning report and rounds with the resident physicians and nursing staff. The patient ismaking good post-operative progress. I agree with Dr. Zhao's assessment and plan as documented above. We anticipate discharge today on post-operative day #3. She will present on POD#7 for bloodpressure check. Severo DRAKE MD * Scooter Canales MD - 06/20/2018 6:50 AM EST Delivery Note Patient ID: Shawn Lisa is a 22 y.o. year old who is postop day #2 after repeat C/S and BTL at 26w3d for pre-eclampsia with severe features by persistent headache and blood pressures. S: The patient complains of nothing. Pain is well controlled. Pumping and using donor milk for infant nutrition without difficulty. Ambulating without weakness/dizziness, tolerating a regular diet without nausea/vomiting, voiding spontaneously. Lochia minimal. Patient had BTL for contraception. O: Last value Range last 24 hrs Temperature Temp: 37.2 ??C (99 ??F) Temp: [36.7 ??C (98.1 ??F)-37.3 ??C (99.1 ??F)] Heart Rate Heart Rate: 72 Heart Rate: [67-83] Blood Pressure BP: (!) 145/95 BP: (115-145)/(76-95) Respiratory Rate Resp: 16 Resp: [16-18] SpO2 SpO2: 99 % SpO2: [97 %-100 %] Intake/Output Summary (Last 24 hours) at 06/20/2018 0650 Last data filed at 06/20/2018 0100 Gross per 24 hour Intake 2701.25 ml Output 3800 ml Net -1098.75 ml Exam: Gen: appears well, in no acute distress. Cardiac: RRR, S1, S2, no rub/gallop/murmur. Pulmonary: CTAB, no rales, wheeze/rhonchi. Abdomen: Soft, symmetric, appropriately tender at incision, BS active, no rebound/guarding Uterus: firm, 4 cm below umbilicus Dressing removed. Incision well approximated with sterri strips with some dried serosanguinous discharge. Extremities: nontender, no edema. Labs: Recent Labs 06/19/18 0832 06/18/18201906/18/18 0830 WBC 16.7* 22.5* 12.7* HGB 10.7* 11.1* 13.1 HCT 30.5* 32.3* 36.9 PLATELET 196 199 212 Recent Labs 06/19/18 0832 06/18/18201906/18/18 0830 CREATININE 0.61* 0.58* 0.65* Assessment: POD#2. Patient doing well without issues. Postoperative hemoglobin appropriate and consistent with estimated blood loss from 11.1 to 10.7. Otherwise no issues; anticipate discharge on postop day #3. Other Medical Issues/Concerns: ?? Pre-Eclampsia with severe features: labs within normal limits on POD#1 and now discontinued. S/ppostpartum magnesium. Patient was taking labetalol 600 mg TID in the antepartum period, labetalol decreased to 400mg BID on POD#0 and now discontinued. Will continue to monitor blood pressures and assess need for anti-hypertensives. ?? Asthma Plan: ?? Continue routine care. ?? BTL for contraception ?? Pumping/Donor Milk for nutrition without concerns ?? Follow-up: 6 week follow up, BP checks days 3 and 7. This patient was seen and discussed on rounds. SCOOTER CANALES MD PGY4 06/20/2018 Associated attestation - Georgia Sarmiento MD - 06/20/2018 9:51 AM EST Attending note I saw patient on rounds and agree with Dr. Canales's note above. The patient reports feeling well. Herheadache has resolved. Her bleeding is diminishing, and she is voiding without difficulty. She has adequate analgesia. She is able to ambulate. Temp: [36.7 ??C (98.1 ??F)-37.4 ??C (99.3 ??F)] Heart Rate: [67-82] Resp: [16-18] BP: (115-145)/(76-95) SpO2: [97 %-100 %] Heart Rate from SPO2: [71 bpm-92 bpm] Abdomen: soft, appropriately tender, fundus below umbilicus Wound/ clean, dry, intact Ext: nontender, mod edema Impression: POD 2 after at 26 weeks for preeclampsia with severe features doing well. Plan: Continue routine postoperative care. Georgia Sarmiento MD * Sunshine Zhao MD - 06/19/2018 9:33 AM EST Delivery Note Patient ID: Shawn Lisa is a 22 y.o. year old who is postop day #1 after repeat C/S and BTL at 26w3d for pre-eclampsia with severe features by persistent headache. S: The patient complains of nothing. Pain is well controlled. Pumping and bottle feeding for infantnutrition without difficulty. Ambulating without weakness/dizziness, tolerating a regular diet without nausea/vomiting, voiding spontaneously; + flatus. Lochia minimal. Patient had BTL for contraception. She reports no symptoms from her magnesium post operatively. O: Last value Range last 24 hrs Temperature Temp: 36.8 ??C (98.2 ??F) Temp: [36.6 ??C (97.9 ??F)-37 ??C (98.6 ??F)] Heart Rate Heart Rate: 68 Heart Rate: [65-90] Blood Pressure BP: 124/89 BP: (115-173)/(70-110) Respiratory Rate Resp: 18 Resp: [16-18] SpO2 SpO2: 100 % SpO2: [94 %-100 %] Intake/Output Summary (Last 24 hours) at 06/18/2018 1900 Last data filed at 06/18/2018 1848 Gross per 24 hour Intake 2903 ml Output 2950 ml Net -47 ml Exam: Gen: appears well, in no acute distress. Cardiac: RRR, S1, S2, no rub/gallop/murmur. Pulmonary: CTAB, no rales, wheeze/rhonchi. Abdomen: Soft, symmetric, appropriately tender at incision, BS active, no rebound/guarding Uterus: firm, 2 cm below umbilicus, appropriately tender Dressing: clean/dry/intact Extremities: nontender, no edema. Labs: Recent Labs 06/18/18 0830 06/18/18 0230 06/17/18 1855 WBC 12.7* 13.2* 12.5* HGB 13.1 12.7 12.9 HCT 36.9 35.9 36.4 PLATELET 212 210 170 Recent Labs 06/18/18 0830 06/18/18 0230 06/17/18 1855 CREATININE 0.65* 0.60* 0.62* Assessment: POD#1. Patient doing well without issues. Postoperative hemoglobin appropriate and consistent with estimated blood loss from 11.1 to 10.7. Otherwise no issues; anticipate discharge on postop day #3. Other Medical Issues/Concerns: ?? Pre-Eclampsia with severe features: Labs trending appropriately, continue q6 labs. Magnesium 2g complete . Denies QUESADA/vision changes/N/V/RUQ/epigastric pain/leg edema. ?? Asthma Plan: ?? Continue routine care. ?? BTL for contraception ?? Pumping/Donor Milk for nutrition without concerns ?? Follow-up: 6 week follow up, BP checks days 3 and 7. This patient was seen and discussed on rounds. Sunshine Zhao MD PGY1 06/18/2018 Associated attestation - Georgia Sarmiento MD - 06/19/2018 5:13 PM EST Attending note I saw patient on rounds and agree with Dr. Zhao's note above. The patient reports feeling well. She feels much better than yesterday. Her headache is nearly resolved and she attributes it to the magnesium. Her bleeding is diminishing. She has adequate analgesia. She is able to ambulate. Temp: [36 ??C (96.8 ??F)-37.3 ??C (99.1 ??F)] Heart Rate: [67-83] Resp: [14-18] BP: (115-141)/(76-92) SpO2: [97 %-100 %] Heart Rate from SPO2: [66 bpm-89 bpm] Abdomen: soft, appropriately tender, fundus below umbilicus ressing: clean, dry, intact Ext: nontender, mod edema Impression: POD 1 after repeat and tubal at 26 weeks for preeclampsia with inability to control blood pressure and persistent neurologic symptoms doing well. Lab tests remain normal. Plan: Continue routine postoperative care. Stop magnesium at 24 hours Follow lab Georgia Sarmiento MD * Clement Sinha, ULYSSES - 06/18/2018 3:35 PM EST Patient Name: Shawn Lisa Patient Age: 22 y.o. Birthdate: 1995 Admit date: 06/13/2018 Attending Physician: Severo Drake MD Ordered PIS & symphony breast pump Vendor:[employer] # [phone] * Scooter Canales MD - 06/18/2018 4:50 AM EST Obstetrical Antepartum Progress Note Shawn Lisa is a 22 y.o. female with an TYE of 09/21/2018, by 8wk ultrasound who is [id number] gestation, admitted for management of preeclampsia with severe features. This is hospital day#6. Active Problems: Patient Active Problem List Diagnosis Code ??? Preeclampsia, severe, second trimester O14.12 ??? Hx of section X2 Z98.891 ??? History of delivery with [place] at 28w [place] [facility] [place] preecl[place] with severe features Z87.51 ??? History of gestational hypertension in second , delivered at [facility] at 37w4d Z87.59 24 Hour Events -- severe range BPs in the evening treated with IV hydralazine -- normal PIH labs Subjective: She continues to have a headache with 5/10 severity that did not improve with tylenol. She also reports worsening swelling in her feet. She reports good movement and denies abdominal pain, ctx, LOF and VB. Denies any vision change, epigastric / RUQ pain. Review of Systems Obstetric Review of Systems Total Weight Gain this 2.268 kg (5 lb) Movement: normal Contractions: none Leaking: None Bleeding; none now Preeclampsia signs and symptoms: None Physical Exam BP (!) 152/102 Pulse 75 Temp 37 ??C (98.6 ??F) (Oral) Resp 16 Ht 162.6 cm (5' 4.02) Wt 83.5 kg (184 lb 1.6 oz) SpO2 99% BMI 31.58 kg/m?? BP Range in Past 24 hours: BP: (120-173)/(70-110) Gen: appears well, NAD CV: RRR, no murmurs/rubs/gallops Pulm: CTAB, no wheezes/crackles Uterus: non-tender Cervical Exam: Deferred LE: non-tender Heart Rate Interpretation: Reactive NST yesterday. Bedside Ultrasound BPP 8/8 Presentation: cephalic MVP 2.3 cm Placenta: anterior Most Recent Ultrasound Date: 06/14/18 [place] at US: 25w6d EFW: 519 g, 6%ile, HC/AC/FL <3%ile UA doppler: persistent AEDF Amniotic fluid volume normal, GABINO 9.4, MVP 2.6 cm Placenta anterior Presentation cephalic GBS Lab Results Component Value Date GBSSCREEN Neg 06/13/2018 Recent Labs 06/18/18 0830 06/18/18 0230 06/17/18 1855 WBC 12.7* 13.2* 12.5* HGB 13.1 12.7 12.9 HCT 36.9 35.9 36.4 PLATELET 212 210 170 Recent Labs 06/18/18 0830 06/18/18 0230 06/17/18 1855 CREATININE 0.65* 0.60* 0.62* Lab Results Component Value Date AST 16 06/18/2018 Assessment & Plan: Shawn Lisa is a 22 y.o. female with an TYE of 09/21/2018 by 8 wk ultrasound who is [id number] gestation, admitted for management of preeclampsia with severe features by blood pressure. Patient received two doses of IV anti- hypertensives overnight and now has a persistent headache. Will plan to move towards delivery with repeat section and bilateral tubal ligation. Start magnesium with 4g bolus and infusion at 2 gm/hr. Anesthesia informed. Pre-op antibiotics ordered. -- Hx of asthma: no current symptoms or medications: avoid Hemabate in the setting of hemorrhage ?? -- care -1h GTT: plan for 28 wks -TDaP: given 06/14/18 -Flu received this season - contraception plan: Patient desires BTL and stated she would want this performed regardless of her 's outcome. She has private insurance and does not need a federal consent. Patient seen and discussed on Multidisciplinary Rounds SCOOTER CANALES MD PGY4 06/18/2018 Associated attestation - Georgia Sarmiento MD - 06/18/2018 10:08 AM EST MFM attending note I saw and evaluated the patient with the team on multidisciplinary rounds. I agree with the findings and the plan of care as documented in the residents' note. The patient reports feeling unwell. Malachi had a persistent moderate headache that has made her have difficulty sleeping despite Tylenol. She has increasing facial and hand edema. She denies contractions, leaking of fluid or bleeding. Shereports good activity. My physical exam confirms and/or revises the resident's exam. Temp: [36.6 ??C (97.9 ??F)-37 ??C (98.6 ??F)] Heart Rate: [65-90] Resp: [16-18] BP: (120-173)/(70-110) SpO2: [97 %-100 %] Heart Rate from SPO2: [67 bpm-96 bpm] Nonstress test: Documented elsewhere Abdomen: gravid, soft, nontender Ext: no edema Impression: 26w3d with worsening preeclampsia with severe features. Now that she has clear neurologic symptoms and required more parenteral meds last night I am worried that we will not get more timesafely with the Plan: I recommended that we deliver her this morning MgSO4 Georgia Sarmiento MD * Lashay Resendiz - 06/17/2018 12:07 PM EST NST and BPP Note NST Fetus A 06/17/2018 HR (Beats/Min) 130 HR Variability moderate (amplitude range 6 to 25 bpm) HR Accelerations present;lasts at least 10 seconds (32 wks gest or less);greater than/equal to 10 bpm (32 wks gest or less) HR Decelerations intermittent;variable Contraction Frequency (Minutes) none Nonstress Test Interpretation Reactive <32 week: two 10 bpm accelerations lasting 10 seconds Overall Impression Reassuring for gestational age Comments variables appropriate for gestational age Biophysical Profile Score Fetus A Breathin (06/17/18 1157) Movement: 2 Tone: 2 Fluid Volume: 2 Nonstress Test: 2 Biophysical Profile Score (of 8): 8 /8 Biophysical Profile Score (of 10): 10 /10 Reassuring testing. Plan to repeat in 24 hours. LASHAY RESENDIZ MD Associated attestation - Marco Antonio Yan MD - 06/17/2018 1:41 PM EST I personally reviewed the nonstress test and sonographic biophysical profile agree with the interpretation as documented above. Marco Antonio Yan MD 06/17/2018 1:41 PM * Alistair Goetz RN - 06/17/2018 10:52 AM EST Pt reports sudden nausea with emesis x1. Nausea continues. Reports pounding QUESADA of 5/10 and request PRN Compazine. Denies visual change, lightheadedness/dizziness. BP noted to be lower than pt's normal. Pt received scheduled Labetalol this morning. 06/17/18 1036 Adult Vital Signs Heart Rate from SPO2 90 bpm Heart Rate 88 Heart Rate Source NIBP BP 120/79 MAP (NBP) 86 mmHg BP Method Automatic BP Location (NBP) Left arm SpO2 100 % Visual Checks Awake;In bed Oxygen Therapy O2 Device RA Pain Scale/Rating Pain Assessment Scale Numbers (Numeric Rating Pain Scale) Pain Level 5 POSS (Pasero Opioid-Induced Sed Scale) 1 - Awake and alert Pain Assessment Numbers/Faces/Word Pain Body Location head Frequency constant Quality other (see comments) (pounding) Nonverbal Indicators of Pain grimace Irais Schmidt, and [place] notified. PRN Compazine given. EFM placed. Scheduled labs being drawn currently. Will continue to monitor. * Maribell Wynn MD - 06/17/2018 10:49 AM EST Obstetrical Antepartum Progress Note Shawn Lisa is a 22 y.o. 26w2d female with an TYE of 09/21/2018, by 8wk ultrasound who is at 26w2d gestation, admitted for management of preeclampsia with severe features. This is hospital day #5. Active Problems: Patient Active Problem List Diagnosis Code ??? Preeclampsia, severe, second trimester O14.12 ??? Hx of section X2 Z98.891 ??? History of delivery with first at 28w at [facility] for preecl[place] with severe features Z87.51 ??? History of gestational hypertension in second , delivered at [facility] at 37w4d Z87.59 24 Hour Events -- severe range BP treated with IV hydralazine -- labetalol increased to 600mg TID -- normal PIH labs Subjective: She continues to have a headache that was mild this morning and more consistent with pressure however a few hours later she reports more severe headache. Has not tried medication besides tylenol yet. She reports good movement and denies abdominal pain, ctx, LOF and VB. Denies any vision change, epigastric / RUQ pain, worsening swelling. Review of Systems Obstetric Review of Systems Total Weight Gain this 2.268 kg (5 lb) Movement: normal Contractions: none Leaking: None Bleeding; none now Preeclampsia signs and symptoms: None Physical Exam BP 120/79 (BP Location (NBP): Left arm) Pulse 88 Temp 36.6 ??C (97.9 ??F) (Oral) Resp 20 Ht162.6 cm (5' 4.02) Wt 83.5 kg (184 lb 1.6 oz) SpO2 100% BMI 31.58 kg/m?? BP Range in Past 24 hours: BP: (120-187)/(75-112) Gen: appears well, NAD CV: RRR, no murmurs/rubs/gallops Pulm: CTAB, no wheezes/crackles Uterus: non-tender Cervical Exam: Deferred LE: non-tender Heart Rate Interpretation: Reactive NST yesterday, please see separate documentation for today. Most Recent Ultrasound Date: 06/14/18 [place] at US: 25w6d EFW: 519 g, 6%ile, HC/AC/FL <3%ile UA doppler: persistent AEDF Amniotic fluid volume normal, GABINO 9.4, MVP 2.6 cm Placenta anterior Presentation cephalic GBS pending Collected 06/13/18 Recent Labs 06/17/18 0445 06/16/18 0430 06/15/18 0505 WBC 12.5* 10.8* 10.8* HGB 13.4 12.8 12.9 HCT 38.1 36.6 37.2 PLATELET 191 202 200 Recent Labs 06/17/18 0445 06/16/18 0430 06/15/18 0505 CREATININE 0.54* 0.51* 0.55* Lab Results Component Value Date AST 20 06/17/2018 Assessment & Plan: Shawn Lisa is a 22 y.o. female with an TYE of 09/21/2018 by 8 wk ultrasound who is [id number] gestation, admitted for management of preeclampsia with severe features by blood pressure. She has a headache right now and will attempt medical therapy to alleviate it. If unable to improve headache, labs worsen, or nonreassuring testing, then would proceed with delivery. 1. Preeclampsia with severe feature by blood pressures, also with growth restriction and AEDFon US -Labs: HELLP labs daily. Continue q6 hrs monitoring. -Delivery indications: non-reassuring status and maternal deterioration -Tocolysis: not indicated -GBS status: collected on admission and pending - status: NST once daily -Ultrasound: detailed morphology scan as above. Given persistent AEDF on US yesterday, plan for twice weekly dopplers and daily BPP. -Steroid status: beta complete on 06/07 -Magnesium for neuro protection: s/p 24 hours of magnesium for neuroprotection -Consultations: neonatology and anesthesiology -Consents obtained: repeat section ?? 2. Hx of asthma: no current symptoms or medications: avoid Hemabate in the setting of hemorrhage ?? 3. care -1h GTT: plan for 28 wks -TDaP: given 06/14/18 -Flu received this season - contraception plan: has considered tubal ligation but is unsure and would like to discuss with her . She has private insurance and does not need a federal consent if she desires sterilization. Patient seen and discussed on Multidisciplinary Rounds LASHAY RESENDIZ MD PGY4 06/17/2018 I have seen and examined the patient, providing garcia components as outlined below. I have reviewed the resident???s above note; my evaluation of the patient is below: 26 2/7 weeks preeclampsia with severe features, IUGR, AEDF. FM felt, no LOF, no bleeding or delbert. QUESADA earlier but pressure now , no vision changes or epigastric pain. BP (120-187)/(75-112) NAD Lungs CTA CV RRR Abdomen soft, NT Uterus NT Ext NT, 1+ edema, DTR 1+, no clonus 26 2/7 weeks preeclampsia with severe features IUGR, AEDF testing reassuring QD BPP, UA SD 2x/ week S/p BMZ S/p magnesium No evidence of HELLP syndrome Delivery for refractory HTN, persistent symptoms of severe preeclampsia, HELLP syndrome or NRFT or REDF. Cont Labetalol. D/c Nifedipine may be causing QUESADA's and will confound symptom assessment. Increase labetalol 600 TID. Plans RCS, possible BTL \MARIBELL WYNN MD * Oren Gilmore MD - 06/17/2018 12:31 AM EST 06/17/18 0028 Nonstress Test, Fetus A HR (Beats/Min) 145 HR Variability moderate (amplitude range 6 to 25 bpm) HR Accelerations greater than/equal to 10 bpm (32 wks gest or less) HR Decelerations prolonged Comments isolated deceleration at 2247 followed by two hours of reassuring monitoring. NST Times NST Start Time 2045 NST Stop Time 0025 I personally reviewed the heart rate tracing. The NST is reactive and the tracing is reassuring. OREN GILMORE MD * Jemima Garcia - 06/16/2018 1:21 PM EST testing note 06/16/18 NST: baseline 140, moderate variability, no accels, occasional variable decels, rare spontaneous decels BPP: 6/8, off for breathing, GABINO 7 with MVP 2.5 Plan: NST was non-reactive, BPP 6/10. Plan to repeat NST this evening. Jemima Garcia MD PGY3 Associated attestation - Almaz Tucker MD - 06/16/2018 1:45 PM EST I personally reviewed and interpreted this NST. Almaz Tucker MD * Maribell Wynn MD - 06/16/2018 5:47 AM EST Obstetrical Antepartum Progress Note Shawn Lisa is a 22 y.o. 26w1d female with an TYE of 09/21/2018, by 8wk ultrasound who is at 26w1d gestation, admitted for management of preeclampsia with severe features. This is hospital day #4. Active Problems: Patient Active Problem List Diagnosis Code ??? Preeclampsia, severe, second trimester O14.12 ??? Hx of section X2 Z98.891 ??? [place] of [place] with [place] at 28w [place] [facility] [place] with severe features Z87.51 ??? History of gestational hypertension in second , delivered [place] [facility] at 37w4d Z87.59 24 Hour Events --no interval events Subjective: Mild headache this morning. Willing to take Tylenol. She reports good movement and denies abdominal pain, ctx, LOF and VB. Denies any vision change, epigastric / RUQ pain, worsening swelling. Review of Systems Obstetric Review of Systems Total Weight Gain this 2.268 kg (5 lb) Movement: normal Contractions: none Leaking: None Bleeding; none now Preeclampsia signs and symptoms: None Physical Exam BP 139/86 (BP Location (NBP): Right arm, Patient Position: Sitting) Pulse 74 Temp 37.4 ??C (99.3 ??F) (Oral) Resp 18 Ht 162.6 cm (5' 4.02) Wt 82.9 kg (182 lb 12.2 oz) SpO2 99% BMI 31.36 kg/m?? BP Range in Past 24 hours: BP: (133-146)/(86-98) Gen: appears well, NAD CV: RRR, no murmurs/rubs/gallops Pulm: CTAB, no wheezes/crackles Uterus: non-tender Cervical Exam: Deferred LE: non-tender Heart Rate Interpretation: Reactive NST yesterday, please see separate documentation for today. Most Recent Ultrasound Date: 06/14/18 GA at US: 25w6d EFW: 519 g, 6%ile, HC/AC/FL <3%ile UA doppler: persistent AEDF Amniotic fluid volume normal, GABINO 9.4, MVP 2.6 cm Placenta anterior Presentation cephalic GBS pending Collected 06/13/18 Recent Labs 06/16/18 0430 06/15/18 0505 06/14/18 0255 WBC 10.8* 10.8* 11.8* HGB 12.8 12.9 14.4 HCT 36.6 37.2 40.2 PLATELET 202 200 193 Recent Labs 06/16/18 0430 06/15/18 0505 06/14/18 0255 CREATININE 0.51* 0.55* 0.50* Lab Results Component Value Date AST 14 06/16/2018 Assessment & Plan: Shawn Lisa is a 22 y.o. female with an TYE of 09/21/2018 by 8 wk ultrasound who is [id number] gestation, admitted for management of preeclampsia with severe features. 1. Preeclampsia with severe feature by blood pressures, now with evidence of growth restriction and AEDF on US -Labs: HELLP labs daily. Stable and wnl this morning. -Delivery indications: non-reassuring status and maternal deterioration -Tocolysis: not indicated -GBS status: collected on admission and pending - status: NST once daily -Ultrasound: detailed morphology scan as above. Given persistent AEDF on US yesterday, plan for twice weekly dopplers and daily BPP. -Steroid status: beta complete on 06/07 -Magnesium for neuro protection: s/p 24 hours of magnesium for neuroprotection -Consultations: neonatology and anesthesiology -Consents obtained: repeat section ?? 2. Hx of asthma: no current symptoms or medications: avoid Hemabate in the setting of hemorrhage ?? 3. care -1h GTT: plan for 28 wks -TDaP: given 06/14/18 -Flu received this season - contraception plan: has considered tubal ligation but is unsure and would like to discuss with her . She has private insurance and does not need a federal consent if she desires sterilization. Patient seen and discussed on Multidisciplinary Rounds Jemima Garcia MD PGY3 06/16/2018 I have seen and examined the patient, providing garcia components as outlined below. I have reviewed the resident???s above note; my evaluation of the patient is below: 26 1/7 weeks preeclampsia with severe features, IUGR, AEDF. FM felt, no LOF, no bleeding or delbert. Mild QUESADA , no vision changes or epigastric pain. BP (133-146)/(86-98) NAD Lungs CTA CV RRR Abdomen soft, NT Uterus NT Ext NT, 1+ edema, DTR 1+, no clonus 26 1/7 weeks preeclampsia with severe features IUGR, AEDF testing reassuring QD BPP, UA SD 2x/ week S/p BMZ S/p magnesium No evidence of HELLP syndrome Delivery for refractory HTN, persistent symptoms of severe preeclampsia, HELLP syndrome or NRFT or REDF. Cont Labetalol. D/c Nifedipine may be causing QUESADA's and will confound symptom assessment. Can increase labetalol or add additional dose if needed Plans RCS, possible BTL \MARIBELL WYNN MD * Vika Sanchez MD - 06/15/2018 11:30 PM EST NST Fetus A 06/15/2018 HR (Beats/Min) 140 HR Variability moderate (amplitude range 6 to 25 bpm) HR Accelerations present HR Decelerations none Contraction Frequency (Minutes) none Nonstress Test Interpretation Reactive <32 week: two 10 bpm accelerations lasting 10 seconds Overall Impression Reassuring for gestational age Comments - Associated attestation - Oren Gilmore MD - 06/16/2018 5:33 AM EST I personally reviewed the heart rate tracing. There are accelerations present to 150 at 1229 and 1247. The NST is reactive. I agree with the description as outlined. OREN GILMORE MD * Maribell Wynn MD - 06/15/2018 11:00 AM EST Obstetrical Antepartum Progress Note Shawn Lisa is a 22 y.o. 26w0d female with an TYE of 09/21/2018, by 8wk ultrasound who is at 26w0d gestation, admitted for management of preeclampsia with severe features. This is hospital day #3. Active Problems: Patient Active Problem List Diagnosis Code ??? Preeclampsia, severe, second trimester O14.12 ??? Hx of section X2 Z98.891 ??? [place] of [place] with [place] at 28w [place] [facility] [place] with severe features Z87.51 ??? History of gestational hypertension in second , delivered [place] [facility] at 37w4d Z87.59 24 Hour Events --s/p Magnesium for seizure prophylaxis Subjective: Patient sitting up comfortably on exam this morning, no new complaints. She is concerned about new finding of AEDF on growth scan yesterday. She reports good movement and denies abdominal pain, ctx, LOF and VB. QUESADA resolved since discontinuing nifedipine yesterday. Denies any QUESADA, vision change, epigastric / RUQ pain, worsening swelling. Review of Systems Obstetric Review of Systems Total Weight Gain this 2.268 kg (5 lb) Movement: normal Contractions: none Leaking: None Bleeding; none now Preeclampsia signs and symptoms: None Physical Exam BP (!) 133/95 Pulse 67 Temp 37.1 ??C (98.8 ??F) (Oral) Resp 18 Ht 162.6 cm (5' 4.02) Wt 85.3 kg (188 lb 1.6 oz) SpO2 99% BMI 32.27 kg/m?? BP Range in Past 24 hours: BP: (133-152)/(92-104) Gen: appears well, NAD CV: RRR, no murmurs/rubs/gallops Pulm: CTAB, no wheezes/crackles Uterus: non-tender Cervical Exam: deferred Heart Rate Interpretation: Reactive NST yesterday, please see separate documentation for today. Most Recent Ultrasound Date: 06/14/18 GA at US: 25w6d EFW: 519 g, 6%ile, HC/AC/FL <3%ile UA doppler: persistent AEDF Amniotic fluid volume normal, GABINO 9.4, MVP 2.6 cm Placenta anterior Presentation cephalic GBS pending Collected 06/13/18 Assessment & Plan: Shawn Lisa is a 22 y.o. female with an TYE of 09/21/2018 by 8 wk ultrasound who is [id number] gestation, admitted for management of preeclampsia with severe features. 1. Preeclampsia with severe feature by blood pressures, now with evidence of growth restriction and AEDF on US -Labs: HELLP labs daily. Stable and wnl this morning. -Delivery indications: non-reassuring status and maternal deterioration -Tocolysis: not indicated -GBS status: collected on admission and pending - status: NST once daily -Ultrasound: detailed morphology scan as above. Given persistent AEDF on US yesterday, plan for twice weekly dopplers. -Steroid status: beta complete on 06/07 -Magnesium for neuro protection: s/[ 24 hours of magnesium for neuroprotection -Consultations: neonatology and anesthesiology -Consents obtained: repeat section ?? 2. Hx of asthma: no current symptoms or medications: avoid Hemabate in the setting of hemorrhage ?? 3. care -1h GTT: plan for 28 wks -TDaP: given 06/14/18 -Flu received this season - contraception plan: has considered tubal ligation but is unsure and would like to discuss with her . She has private insurance and does not need a federal consent if she desires sterilization. Patient seen and discussed on Multidisciplinary Rounds Note written in concert with MD Vika Cota MD PGY3 06/15/2018 I have seen and examined the patient, providing garcia components as outlined below. I have reviewed the resident???s above note; my evaluation of the patient is below: 26 0/7 weeks preeclampsia with severe features, IUGR, AEDF. FM felt, no LOF, no bleeding or delbert. No QUESADA , no vision changes or epigastric pain. BP 133-152/92-104 NAD Lungs CTA CV RRR Abdomen soft, NT Uterus NT Ext NT, 1+ edema, DTR 1+, no clonus 26 0/7 weeks preeclampsia with severe features IUGR, AEDF testing reassuring QD BPP, UA SD 2x/ week S/p BMZ On magnesium No evidence of HELLP syndrome Delivery for refractory HTN, persistent symptoms of severe preeclampsia, HELLP syndrome or NRFT or REDF. Cont Labetalol. D/c Nifedipine may be causing QUESADA's and will confound symptom assessment. Can increase labetalol or add additional dose if needed Plans RCS, possible BTL \MARIBELL WYNN MD * Maribell Wynn MD - 06/14/2018 5:19 PM EST PGY4 NST Note NST Fetus A 06/14/2018 HR (Beats/Min) 130 HR Variability moderate (amplitude range 6 to 25 bpm) HR Accelerations present;lasts at least 10 seconds (32 wks gest or less);greater than/equal to 10 bpm (32 wks gest or less) HR Decelerations none Contraction Frequency (Minutes) none Nonstress Test Interpretation Reactive <32 week: two 10 bpm accelerations lasting 10 seconds Overall Impression Reassuring for gestational age Comments - SCOOTER CANALES MD 06/14/2018 I was the attending physician supervising the resident in the above care and I was present with theresident for the entire procedure. MARIBELL WYNN MD * Maribell Wynn MD - 06/14/2018 6:28 AM EST Obstetrical Antepartum Progress Note Shawn Lisa is a 22 y.o. 25w6d female with an TYE of 09/21/2018, by 8wk ultrasound who is at 25w6d gestation, admitted for management of preeclampsia with severe features. This is hospital day #2. Active Problems: Patient Active Problem List Diagnosis Code ??? Preeclampsia, severe, second trimester O14.12 ??? Hx of section X2 Z98.891 ??? [place] of [place] with [place] at 28w [place] [facility] [place] with severe features Z87.51 ??? History of gestational hypertension in second , delivered at [facility] at 37w4d Z87.59 24 Hour Events --Magnesium continued from OSH for seizure prophylaxis Subjective: Patient reports a mild headache this morning, states her headache usually starts after her afternoon dose of nifedipine. Denies any epigastric / RUQ pain, vision changes, worsening swelling. Denies any leakage of fluid, vaginal bleeding. Reports good movement. Review of Systems Obstetric Review of Systems Total Weight Gain this 2.268 kg (5 lb) Movement: normal Contractions: none Leaking: None Bleeding; none now Preeclampsia signs and symptoms: None Physical Exam BP (!) 144/102 Pulse 78 Temp 37.1 ??C (98.8 ??F) (Oral) Resp 16 Ht 162.6 cm (5' 4) Wt 87.1 kg (192 lb) SpO2 99% BMI 32.96 kg/m?? Gen: appears well, NAD CV: RRR, no murmurs/rubs/gallops Pulm: CTAB, no wheezes/crackles Uterus: non-tender Cervical Exam: deferred Heart Rate Interpretation: Reactive tracing yesterday, please see separate documentation for today. Most Recent Ultrasound Date: 06/11/18 GA at US: 25w3d EFW: not reported Amniotic fluid volume normal, GABINO 8.3 cm Placenta anterior Presentation cephalic GBS pending Assessment & Plan: Shawn Lisa is a 22 y.o. female with an TYE of 09/21/2018 by 8 wk ultrasound who is [id number] gestation, admitted for management of preeclampsia with severe features. 1. Preeclampsia with severe feature by blood pressures -Labs: HELLP labs daily -Delivery indications:non-reassuring status and maternal deterioration -Tocolysis: not indicated -GBS status: collected on admission and pending - status: NSTonce daily -Ultrasound: detailed morphology scan ordered for today -Steroid status: beta complete on 06/07 -Magnesium for neuro protection: received Mg 4 g bolus and Mg running at 2 gm/hr. Magnesium will bediscontinued at 1030 -Consultations: neonatology and anesthesiology -Consents obtained: repeat section ?? 2. Hx of asthma: no current symptoms or medications: avoid Hemabate in the setting of hemorrhage ?? 3. care -1h GTT: plan for 28 wks -TDaP: ordered -Flu received this season - contraception plan: has considered tubal ligation but is unsure and would like to discuss with her . She has private insurance and does not need a federal consent if she desires sterilization. Patient seen and discussed on Multidisciplinary Rounds Note written in concert with MD SCOOTER Corbin MD PGY4 06/14/2018 I have seen and examined the patient, providing garcia components as outlined below. I have reviewed the resident???s above note; my evaluation of the patient is below: 25 6/7 weeks preeclampsia with severe features, IUGR, AEDF. FM felt, no LOF, no bleeding or delbert. No QUESADA now, no vision changes or epigastric pain. 144/101 NAD Lungs CTA CV RRR Abdomen soft, NT Uterus NT Ext NT, 1+ edema, DTR 1+, no clonus 25 6/7 weeks preeclampsia with severe features IUGR, AEDF testing reassuring QD BPP S/p BMZ On magnesium No evidence of HELLP syndrome Delivery for refractory HTN, persistent symptoms of severe preeclampsia, HELLP syndrome or NRFWB. Cont Labetalol. D/c Nifedipine may be causing QUESADA's and will confound symptom assessment. Can increase labetalol or add additional dose if needed \MARIBELL WYNN MD * Izzy Domínguez RN - 06/14/2018 2:34 AM EST 2:34 AM MD Solange alerted to critical BP of 152/113 with BP 131/88 on 15 minute repeat. Pt reports she continues to have QUESADA. Order for compazine obtained. q6hr labs pending for 0245. documented in this encounter H&P Notes * Felecia Hadley MD - 06/13/2018 1:16 PM EST Obstetrical Admission Note Referring Hospital: [facility] Referring Provider: Dr. Tobias Ruiz MD Initial Care Provider (if early referral or co-managed by [facility]): [facility] Chief Complaint: Shawn Lisa was admitted today secondary to preeclampsia with severe features by blood pressure. Shawn Lisa is a 22 y.o. at 25w5d weeks gestation by 8w . She is admitted in transport from [facility] for management of preeclampsia with severe features by blood pressure. She was admitted at [facility] on 06/06/2018 for blood pressure management. Her labs at that time were notable for creatinine 0.6, AST 16, UPC 4.09, 24 hour urine 2327 grams. She received a course of betamethasone at that time. She was started on labetalol 600 mg BID and nifedipine 30mg daily. She represented to the hospital today due to a headache and was found to have severe range blood pressures. She received Magnesium for seizure prophylaxis and was transported to [facility] [place]. Her has been complicated by: 1. History of prior delivery x 2 2. History of preeclampsia with severe features, [place] at 28w at [facility] 3. History of gestational hypertension with delivery at 37w at [facility], [place] 4. Asthma Review of Systems- Negative to complete review except as noted in the HPI. Obstetric Review of Systems Total Weight Gain this Not found. Movement: normal Contractions: none Leaking: None Bleeding; none now Preeclampsia signs and symptoms: None Active Hospital Problems Diagnosis ??? Preeclampsia, severe, second trimester ??? Hx of section X2 ??? History of delivery with first at 28w at [facility] [place] pre[place] with severe features ??? History of gestational hypertension in second , delivered at [facility] at 37w4d Resolved Hospital Problems No resolved problems to display. There are no active non-hospital problems to display for this patient. Past Medical History: Diagnosis Date ??? Asthma excercise induced ??? Hypertension only with preeclampsia Past Surgical History: Procedure Laterality Date ??? APPENDECTOMY 2008 ??? SECTION 2010 ??? PRO DELIVERY ONLY 07/20/2013 @ DELIVERY performed by Don Boudreaux MD at [facility] OB History Para Term AB Living 3 2 1 1 2 SAB TAB Ectopic Multiple Live Births 2 # Outc Date GA Lbr Eliceo/2nd Wgt Sex Del Anes PTL Lv 1 07/2010 28w0d 0.794 kg (1 lb 12 oz) M CS-LTranv Spinal N Living 2 Term 07/2013 37w4d 3.27 kg (7 lb 3.3 oz) M Spinal Living 3 Current Medications Prior to Admission Medication Sig Dispense Refill Last Dose ??? levonorgestrel (MIRENA) 20 mcg/24 hour (5 years) IUD 1 each by Intrauterine route once. Taking at Unknown ??? ixxuvgunsj-ojowwsyzbzoqe-hhygnkgr (FIORICET, ESGIC) per tablet Take 2 tablets by mouth every 4 hours as needed for Pain. 10 tablet 0 Taking at Unknown No Known Allergies No family history on file. Social History Occupational History ??? Not on file Tobacco Use ??? Smoking status: Never Smoker ??? Smokeless tobacco: Never Used Substance and Sexual Activity ??? Alcohol use: No ??? Drug use: No ??? Sexual activity: Yes Partners: Male Immunization History Immunization History Administered Date(s) Administered ??? Influenza Vaccine, Whole 02/10/2010 ??? MMR Vaccine, Live 07/22/2013 ??? Tdap Vaccine 08/02/2010, 06/24/2013 Last Set of Vitals: BP (!) 155/111 Pulse 75 Temp 36.8 ??C (98.2 ??F) (Oral) Resp 20 SpO2 100% Physical Exam: Gen: well appearing Cardio: nl rhythm, S1, S2, no M/C/R/G Pulm: CTA BL, no W/C/R Abd: +BS, soft, NT, ND, gravid Ext: warm, well-perfused, no WILNER or calf tenderness Neuro: grossly intact, 2+ brachioradialis reflexes b/l Uterine Size: S<D Clinical EFW: 591g from BSUS Cervix Exam: not examined Presentation: oblique, head at LLQ and breech towards RUQ by BSUS BSUS: GABINO 5.19 cm, MVP 2.79 cm, anterior placenta, EFW 591g, 15% by Hadlock Heart Rate Interpretation: Baseline: 140, Variability: moderate, Accels: yes 10x10, Decels: none, [place]: none Category: I Record Review Labs Lab Results Component Value Date ABORH A Pos 07/19/2013 HCT 28.1 (L) 07/22/2013 HGB 9.6 (L) 07/22/2013 MCV 88.6 07/22/2013 HEPBSAG Negative 12/17/2012 RUBLIGG Negative (A) 12/17/2012 HIV12 Negative 12/17/2012 GCAMP Negative 12/25/2012 CHLMGENE Negative 12/25/2012 [id number] <0.19 (H) 07/11/2013 AST 11 07/22/2013 Lab Results Component Value Date GBSSCREEN Neg 07/11/2013 Labs: A positive, rubella immune, HepBsAg negative, RPR negative, HIV non-reactive, low risk NIPT, H/H 13.9 / 39.6, platelets 226,00, GC/CT negative. Most Recent Ultrasound Date: 06/11/18 GA at US: 25w3d EFW: not reported Amniotic fluid volume normal, GABINO 8.3 cm Placenta anterior Presentation cephalic Assessment & Plan Shawn Lisa is a 22 y.o. at 25w5d gestation being admitted for preeclampsia with severe features by blood pressure. 1. Preeclampsia with severe feature by blood pressures -Labs: Type and screen, CBC, AST, ALT creatinine, LDH -Delivery indications:non-reassuring status and maternal deterioration -Tocolysis: not indicated -GBS status: collected on admission - status: NSTonce daily -Ultrasound: detailed morphology scan ordered -Steroid status: beta complete on 06/07 -Magnesium for neuro protection: received Mg 4 g bolus and Mg running at 2 gm/hr -Consultations: neonatology and anesthesiology -Consents obtained: Reviewed consent with the patient. Discussed risks such as maternal: bleeding, infection, need for blood transfusion, damage to nearby organs such as bladder; bowel; and ureters. Also discussed rare risks such as damage to the baby or maternal hysterectomy. Discussed benefits and alternatives. Patient had time to ask questions which were answered. Patient signed consent and itwas placed in the chart. 2. contraception plan: has considered tubal ligation but is unsure and would like to discuss with her . She has private insurance and does not need a federal consent if she desires sterilization. 3. Hx of asthma: no current symptoms or medications: avoid Hemabate in the setting of hemorrhage This patient was seen and discussed with Dr. Hadley, Attending VISUAL COMMUNICATIONS INSTRUCTOR. Niraj Lewis MD PGY3 06/13/2018 Attending note I saw and evaluated the patient with Dr Lewis (resident physician.) I have reviewed the resident's history during the visit and I agree with the details as written. My physical examination confirms and/or revises the resident's findings. The assessment and plan were formulated in discussion withme at the time of the visit and I agree with them as documented. Felecia Hadley MD documented in this encounter Miscellaneous Notes * Plan of Care - Ramya Ambrose RN - 06/21/2018 5:11 AM EST Problem: Patient Care Overview Goal: Plan of Care Review Outcome: Ongoing (Interventions Implemented as Appropriate) 06/20/1844906/20/182299 Coping/Psychosocial Plan Of Care Reviewed With -- patient;spouse Plan of Care Review Progress progress toward functional goals as expected -- OUTCOME EVALUATION NOTE: OUTCOME SUMMARY: Pt recovering well from C/S. Pain well controlled with tylenol and ibuprofen. Pumping and bringing breast milk to ICN. PLAN MOVING FORWARD: Continue to educate and support INDIVIDUALIZED FALL PREVENTION INTERVENTIONS: Patient-specific fall risk factors per assessment: [current deficits]: No deficit Assistance [level of assistance required for transfers and ambulation]: independent Supervision [direct monitoring required during toileting and ADLs]: Pt able to reliably call for assistance Surveillance [continuous indirect monitoring]: Purposeful rounding Goal: Individualization & Mutuality Outcome: Ongoing (Interventions Implemented as Appropriate) 06/16/1845106/19/18 1723 06/20/18449 Individualization Patient Specific Preferences -- -- ICN visits, pain control, rest Patient Specific Goals -- Pumping, ambulation -- Patient Specific Interventions -- -- assist with pumping as needed, administer PO pain meds as needed, promote rest Mutuality/Individual Preferences What Anxieties, Fears or Concerns Do You Have About Your Health or Care? None at this time -- -- What Questions Do You Have About Your Health or Care? None -- -- What Information Would Help Us Give You More Personalized Care? Keep me informed -- -- Goal: Fall Prevention-Safe Patient Handling Outcome: Ongoing (Interventions Implemented as Appropriate) 06/20/18 0706/20/182299 Daily Care Interventions Self-Care Promotion -- independence encouraged Guerrero Fall Risk History of Falling -- 0 Secondary Diagnosis -- 15 Ambulatory Aids -- 0 Intravenous Therapy/Heparin/Saline Lock -- 0 Gait/Transferring -- 0 Mental Status -- 0 Score -- 15 OTHER Guerrero Fall Risk -- Low Restraint Interventions Safety Promotion/Fall Prevention -- safety round/check completed Positioning Body Position -- independent Activity Activity Type -- up ad lisa Activity Assistance Provided -- independent Assistive Device Utilized none -- Goal: Infection Control Outcome: Ongoing (Interventions Implemented as Appropriate) 06/20/182299 Safety Interventions Isolation Precautions standard precautions maintained Infection Prevention single patient room provided;rest/sleep promoted;personal protective equipmentutilized;equipment surfaces disinfected;environmental surveillance performed Coping Strategies Supportive Measures active listening utilized;counseling provided;decision- making supported;goal setting facilitated;positive reinforcement provided;problem solving facilitated;relaxation techniques promoted;self-care encouraged;self-reflection promoted;self-responsibility promoted;verbalization offeelings encouraged Goal: Discharge Needs Assessment Outcome: Ongoing (Interventions Implemented as Appropriate) 06/19/18 1723 06/20/18 0450 Discharge Needs Assessment Concerns To Be Addressed -- no discharge needs identified Readmission Within The Last 30 Days -- no previous admission in last 30 days Provider Choice List(s) Given -- no Equipment Needed After Discharge none -- Discharge Disposition -- still a patient Current Health Anticipated Changes Related to Illness -- none Activity/Self Care Review of Systems Equipment Currently Used at Home -- none Living Environment Transportation Available -- car;family or friend will provide Goal: Interdisciplinary Rounds/Family Conf Outcome: Ongoing (Interventions Implemented as Appropriate) 06/17/18 0907 06/20/18 0450 Interdisciplinary Rounds/Family Conf Summary increase Labetalol to tid, q6 hour labs, bpp/today, compezine for h/a per pt, magnesium infusion d/c. -- Participants -- family;nursing;patient Problem: ( Delivery) (Adult) Goal: Signs and Symptoms of Listed Potential Problems Will be Absent, Minimized or Managed () Signs and symptoms of listed potential problems will be absent, minimized or managed by discharge/transition of care (reference ( Delivery) (Adult) CPG). Outcome: Ongoing (Interventions Implemented as Appropriate) 06/20/18 2300 ( Delivery) Problems Assessed ( ) all Problems Present ( ) none * Plan of Care - Haily Peraza RN - 06/20/2018 6:58 PM EST Problem: Patient Care Overview Goal: Plan of Care Review Outcome: Ongoing (Interventions Implemented as Appropriate) 06/20/18 0450 06/20/18 0742 Coping/Psychosocial Plan Of Care Reviewed With -- patient Plan of Care Review Progress progress toward functional goals as expected -- OUTCOME EVALUATION NOTE: OUTCOME SUMMARY: Pt doing well today POD3 s/p delivery w. BTL for pre-e with severe features. Pressures mild range. Up and abulating/voiding without issue. Passing gas and had BM. Pain well controlled with current regimen. Pumping and making regular trips to ICN to visit . Denies vaginal bleeding. IVpatent. PLAN MOVING FORWARD: Continue vs q4, pumping q2-3. INDIVIDUALIZED FALL PREVENTION INTERVENTIONS: Patient-specific fall risk factors per assessment: [current deficits]: IV Assistance [level of assistance required for transfers and ambulation]: IND Supervision [direct monitoring required during toileting and ADLs]: IND Surveillance [continuous indirect monitoring]: IND Patient-specific fall prevention interventions for sensory deficits provided, if applicable: CPG GOAL OUTCOME EVALUATION: Goal: Individualization & Mutuality Outcome: Ongoing (Interventions Implemented as Appropriate) 06/16/1845106/19/18172206/20/18449 Individualization Patient Specific Preferences -- -- ICN visits, pain control, rest Patient Specific Goals -- Pumping, ambulation -- Patient Specific Interventions -- -- assist with pumping as needed, administer PO pain meds as needed, promote rest Mutuality/Individual Preferences What Anxieties, Fears or Concerns Do You Have About Your Health or Care? None at this time -- -- What Questions Do You Have About Your Health or Care? None -- -- What Information Would Help Us Give You More Personalized Care? Keep me informed -- -- Goal: Fall Prevention-Safe Patient Handling Outcome: Ongoing (Interventions Implemented as Appropriate) 06/20/18 07 Daily Care Interventions Self-Care Promotion independence encouraged Guerrero Fall Risk History of Falling 0 Secondary Diagnosis 15 Ambulatory Aids 0 Intravenous Therapy/Heparin/Saline Lock 20 Gait/Transferring 0 Mental Status 0 Score 35 OTHER Guerrero Fall Risk Med Restraint Interventions Safety Promotion/Fall Prevention fall prevention program maintained;nonskid shoes/slippers when outof bed;safety round/check completed Positioning Body Position independent Activity Activity Type up ad lisa Activity Assistance Provided independent Assistive Device Utilized none Goal: Infection Control Outcome: Ongoing (Interventions Implemented as Appropriate) 06/20/18741 Safety Interventions Isolation Precautions standard precautions maintained Infection Prevention single patient room provided;rest/sleep promoted;personal protective equipmentutilized;equipment surfaces disinfected Coping Strategies Supportive Measures self-care encouraged;verbalization of feelings encouraged Goal: Discharge Needs Assessment Outcome: Ongoing (Interventions Implemented as Appropriate) 06/19/18172206/20/18449 Discharge Needs Assessment Concerns To Be Addressed -- no discharge needs identified Readmission Within The Last 30 Days -- no previous admission in last 30 days Provider Choice List(s) Given -- no Equipment Needed After Discharge none -- Discharge Disposition -- still a patient Current Health Anticipated Changes Related to Illness -- none Activity/Self Care Review of Systems Equipment Currently Used at Home -- none Living Environment Transportation Available -- car;family or friend will provide Goal: Interdisciplinary Rounds/Family Conf Outcome: Ongoing (Interventions Implemented as Appropriate) 06/17/1890606/20/18449 Interdisciplinary Rounds/Family Conf Summary increase Labetalol to tid, q6 hour labs, bpp/today, compezine for h/a per pt, magnesium infusion d/c. -- Participants -- family;nursing;patient Problem: ( Delivery) (Adult) Goal: Signs and Symptoms of Listed Potential Problems Will be Absent, Minimized or Managed () Signs and symptoms of listed potential problems will be absent, minimized or managed by discharge/transition of care (reference ( Delivery) (Adult) CPG). Outcome: Ongoing (Interventions Implemented as Appropriate) 06/20/18 184 ( Delivery) Problems Assessed ( ) all Problems Present ( ) none * Care Management - Georgia Sarmiento MD - 06/20/2018 9:52 AM EST I called Dr. Ruiz with the delivery information. Georgia Sarmiento MD * Plan of Care - Georgia Fish RN - 06/20/2018 4:55 AM EST Problem: Patient Care Overview Goal: Plan of Care Review Outcome: Ongoing (Interventions Implemented as Appropriate) 06/20/18449 Coping/Psychosocial Plan Of Care Reviewed With patient Plan of Care Review Progress progress toward functional goals as expected OUTCOME EVALUATION NOTE: OUTCOME SUMMARY: Patient bonding with in ICN. Pumping independently. Up walking independently. Voiding. VSS.Fundus appropriate, no lochia reported. Tolerating PO pain meds with relief. PLAN MOVING FORWARD: Continue supporting and assessing maternal wellbeing. Continue assessing pain management. Encouragevisits to ICN and rest. INDIVIDUALIZED FALL PREVENTION INTERVENTIONS: Patient-specific fall risk factors per assessment: [current deficits]: New . Assistance [level of assistance required for transfers and ambulation]: Independent Supervision [direct monitoring required during toileting and ADLs]: None Surveillance [continuous indirect monitoring]: Purposeful rounding Patient-specific fall prevention interventions for sensory deficits provided, if applicable: CPG GOAL OUTCOME EVALUATION: Goal: Individualization & Mutuality Outcome: Ongoing (Interventions Implemented as Appropriate) 06/20/18449 Individualization Patient Specific Preferences ICN visits, pain control, rest Patient Specific Interventions assist with pumping as needed, administer PO pain meds as needed, promote rest Goal: Fall Prevention-Safe Patient Handling Outcome: Ongoing (Interventions Implemented as Appropriate) 06/19/18 1950 06/20/18449 Daily Care Interventions Self-Care Promotion -- independence encouraged Guerrero Fall Risk History of Falling 0 -- Secondary Diagnosis 15 -- Ambulatory Aids 0 -- Intravenous Therapy/Heparin/Saline Lock 20 -- Gait/Transferring 0 -- Mental Status 0 -- Score 35 -- OTHER Guerrero Fall Risk Med -- Restraint Interventions Safety Promotion/Fall Prevention safety round/check completed -- Positioning Body Position independent -- Activity Activity Type up ad lisa -- Activity Assistance Provided independent -- Assistive Device Utilized none -- Goal: Infection Control Outcome: Ongoing (Interventions Implemented as Appropriate) 06/19/18 1950 Safety Interventions Isolation Precautions standard precautions maintained Infection Prevention environmental surveillance performed;rest/sleep promoted;single patient room provided Coping Strategies Supportive Measures active listening utilized;counseling provided;decision- making supported;positive reinforcement provided;self-care encouraged;verbalization of feelings encouraged Goal: Discharge Needs Assessment Outcome: Ongoing (Interventions Implemented as Appropriate) 06/20/18449 Discharge Needs Assessment Concerns To Be Addressed no discharge needs identified Readmission Within The Last 30 Days no previous admission in last 30 days Provider Choice List(s) Given no Discharge Disposition still a patient Current Health Anticipated Changes Related to Illness none Activity/Self Care Review of Systems Equipment Currently Used at Home none Living Environment Transportation Available car;family or friend will provide Goal: Interdisciplinary Rounds/Family Conf Outcome: Ongoing (Interventions Implemented as Appropriate) 06/20/18449 Interdisciplinary Rounds/Family Conf Participants family;nursing;patient Problem: ( Delivery) (Adult) Goal: Signs and Symptoms of Listed Potential Problems Will be Absent, Minimized or Managed () Signs and symptoms of listed potential problems will be absent, minimized or managed by discharge/transition of care (reference ( Delivery) (Adult) CPG). Outcome: Ongoing (Interventions Implemented as Appropriate) 06/19/18 1950 ( Delivery) Problems Assessed ( ) all Problems Present ( ) none * Note - Jaimie Motley RN - 06/19/2018 8:08 PM EST This note was copied from a baby's chart. I attempted to touch base with this mom today. I have missed her both times. Per the bedside RN momhas been pumping. will follow up in the morning. * Plan of Care - Mary Ann Bonilla RN - 06/19/2018 6:00 PM EST Problem: Patient Care Overview Goal: Plan of Care Review 06/19/18 1723 Coping/Psychosocial Plan Of Care Reviewed With patient Plan of Care Review Progress progress toward functional goals as expected OUTCOME EVALUATION NOTE: OUTCOME SUMMARY: Shawn is improving this shift. Mag discontinued at 24 hours postdelivery. Pt initially reported some dizziness & nausea with ambulation this AM which was been improving since Mag discontinued. Ptnow ambulating without difficulty to/ from ICN. BP remain normotensive. PO Labetalol discontinued at this time to assess BPs overnight. Aguilar discontinued, voiding without difficulty. Pumping with minimal assistance. Visiting in ICN. PLAN MOVING FORWARD: Continue to facilitate care of self, monitor BPs, pain management INDIVIDUALIZED FALL PREVENTION INTERVENTIONS: Patient-specific fall risk factors per assessment: [current deficits]: None Assistance [level of assistance required for transfers and ambulation]: As needed Supervision [direct monitoring required during toileting and ADLs]: Call [place] within reach Surveillance [continuous indirect monitoring]: Pt able to reliably summon help Patient-specific fall prevention interventions for sensory deficits provided, if applicable: N/a CPG GOAL OUTCOME EVALUATION: Goal: Individualization & Mutuality 06/19/18 1723 Individualization Patient Specific Preferences Visit in ICN Patient Specific Goals Pumping, ambulation Goal: Fall Prevention-Safe Patient Handling 06/19/18 0737 06/19/18 1600 Guerrero Fall Risk History of Falling -- 0 Secondary Diagnosis -- 15 Ambulatory Aids -- 0 Intravenous Therapy/Heparin/Saline Lock -- 20 Gait/Transferring -- 0 Mental Status -- 0 Score -- 35 OTHER Guerrero Fall Risk -- Med Restraint Interventions Safety Promotion/Fall Prevention activity supervised;fall prevention program maintained;nonskid shoes/slippers when out of bed;safety round/check completed -- Positioning Body Position independent -- Activity Activity Type -- ambulated in nicolas Activity Assistance Provided -- independent Assistive Device Utilized -- wheelchair Goal: Infection Control 06/19/18 0737 Safety Interventions Isolation Precautions standard precautions maintained Infection Prevention rest/sleep promoted;environmental surveillance performed;single patient room provided Coping Strategies Supportive Measures active listening utilized;positive reinforcement provided Goal: Discharge Needs Assessment Outcome: Ongoing (Interventions Implemented as Appropriate) 06/19/18 1723 Discharge Needs Assessment Concerns To Be Addressed no discharge needs identified Readmission Within The Last 30 Days no previous admission in last 30 days Provider Choice List(s) Given no Equipment Needed After Discharge none Discharge Disposition still a patient Current Health Anticipated Changes Related to Illness none Activity/Self Care Review of Systems Equipment Currently Used at Home none Living Environment Transportation Available family or friend will provide Problem: ( Delivery) (Adult) Goal: Signs and Symptoms of Listed Potential Problems Will be Absent, Minimized or Managed () Signs and symptoms of listed potential problems will be absent, minimized or managed by discharge/transition of care (reference ( Delivery) (Adult) CPG). 06/19/18 1723 ( Delivery) Problems Assessed ( ) all Problems Present ( ) none * Plan of Care - Almaz Medley RN - 06/18/2018 5:39 PM EST Problem: Patient Care Overview Goal: Plan of Care Review 06/16/18 0452 06/18/18 0802 Coping/Psychosocial Plan Of Care Reviewed With -- patient;spouse Plan of Care Review Progress progress toward functional goals as expected -- OUTCOME EVALUATION NOTE: OUTCOME SUMMARY: S/p repeat c/s this shift. Pt continues on magnesium infusion- feeling better post delivery, QUESADA resolved. Tolerating fluids, tried toast and felt nauseas IV zofran given. and family at bedside and supportive. Bleeding WDL. Will continue to monitor. PLAN MOVING FORWARD: Visit baby in ICN, continue magnesium infusion for 24h, encourage foods and fluids INDIVIDUALIZED FALL PREVENTION INTERVENTIONS: Patient-specific fall risk factors per assessment: [current deficits]: S/p spinal Assistance [level of assistance required for transfers and ambulation]: hands on Supervision [direct monitoring required during toileting and ADLs]: 2 assist post spinal Surveillance [continuous indirect monitoring]: Purposeful rounding Patient-specific fall prevention interventions for sensory deficits provided, if applicable: [X] N/A CPG GOAL OUTCOME EVALUATION: * L&D Delivery Note - Scooter Canales MD - 06/18/2018 4:36 PM EST Section Delivery Note Shawn Lisa is a 22 y.o. woman at 26w3d weeks gestational age whose was complicated by preeclampsia with severe features by blood pressures and headache. She received a courseof betamethasone and magnesium for neuprotection. Decision was made to proceed with a repeat section and tubal ligation on HD#6 secondary to severe range blood pressures and persistent headache. Patient underwent uncomplicated repeat section with classical incision. Viable female infant. APGARS of 4 and 8. Weight of 600g. Cord blood was taken and cord gases were obtained. Blood lossestimated at 500ccs. Please see op note for further details. SCOOTER CANALES MD PGY4 06/18/2018 Information for the patient's : Kacie, Baby Girl [[id number]] DELIVERY SUMMARY FOR Baby Ramiro Lisa (please note there is a separate summary for each fetus) 06/18/2018 11:15 AM by Upper Segment Vertical Sex: female Gestational Age: 26w3d Labor Events labor?: No steroids: Full Course Rupture date/time: 06/18/2018 1114 Rupture type: artificial rupture of membranes Fluid color: clear Labor onset type: section without labor Maternal Delivery Complications: preeclampsia with severe features Maternal procedures with delivery: tubal ligation Mother Delivery Episiotomy: None Surgical or additional est. blood loss (mL): 500 Combined est. blood loss (mL): 500 Delivery (Cast[facility]) Delivery Date: 06/18/18 Delivery Date: 11:15:00 AM Sex: Female Presentation: Vertex Attempted ?: No Delivery Type: Delivery Type (Specific): Upper Segment Vertical Major Indications - : maternal medical condition Contributing Factors - : previous low vertical Shoulder Dystocia Shoulder dystocia present?: No Delivery Information Delivery Location: OR Delivering Clinician: Scooter Canales MD ICN Staff Present: Yes Other Personnel: Provider Role Alistair Goetz, credit director Nurse Earlene Umanzor MD Soda Fountain Operator Dania Ribeiro RN Delivery Assist Tameka Mina RN Charge Nurse Mary Ann Bonilla RN Registered Nurse Paloma Albarran LNA Lead Bi Developer Anesthesia Method: Combined Spinal/Epidural Cord Vessels: 3 Vessels Complications: None Gases Sent?: Yes Cord Insertion: marginal Assessment & APGARS Living status: Living Apgars 1 Minute: 5 Minute: 10 Minute 15 Minute 20 Minute Skin Color: 0 1 Heart Rate: 2 2 Reflex Irritability: 0 2 Muscle Tone: 1 1 Respiratory Effort: 1 2 Total: 4 8 Apgars Assigned By: KEITH SANTOS MD Resuscitation Method: Intubation, Suctioning, PPV, Surfactant, Volume Expansion Suctioning Method: Bulb syringe, NG catheter Vocal Cords Visualized?: Yes Meconium: vocal cords clear Resuscitation Comment: Infant arrived to warmer without cry. Oropharynx was bulb suctioned, facemask applied, and started on PPV. By 1 minute of life was cyring and grunting. PPV continued until 3 minutes of life, then maintained on CPAP with spontaneous respirations. FiO2 up to 60% during resuscitation then decreased to room air. By 10 minutes of life, NIPV was started after NG catheter suctioning. Grunting, retractions, and suprasternal tug increased and at 25 minutes was intubated after 3 attempts. HR>120 throughout. Maternal Feeding and Skin to Skin Maternal Choice for Castana(s) Feeding on Admission: Reason skin to skin not initiated: Castana Acuity Castana Medications Medications Given: vitamin K, erythromycin Measurements Weight: 600 g Length: 0.305 m Head circumference: 0.225 m Placenta Date and Time: 06/18/2018 11:17:00 AM Removal: Expressed Labor Length 3rd stage: 0h 02m * Op Note - Scooter Canales MD - 06/18/2018 12:54 PM EST [facility] [place] Patient Name: Shawn Lisa : [id number] MR#: [id number] Case Date: 06/18/2018 Surgeon: Surgeon(s) and Role: * Earlene Umanzor MD - Primary * Scooter Canales MD - Resident-Foam Dispenser Preoperative diagnosis: 1. Preeclampsia with severe features by blood pressure and headache 2. IUP at 26w3d gestation, betamethasone and magnesium complete 3. Desires permanent sterilization Postoperative diagnosis: 1. Preeclampsia with severe features by blood pressure and headache 2. IUP at 26w3d gestation, betamethasone and magnesium complete 3. Desires permanent sterilization Procedure(s): Repeat section via classical incision and bilateral tubal ligation Anesthesia: combined spinal epidural Findings: Female infant in cephalic presentation. APGARS 4 and 8. weight 600 grams. Normal uterus (retroflexed), normal tubes and ovaries. Placenta small with marginal cord insertion. Clear amniotic fluid. Complications: none Estimated Blood Loss: 500 mL Specimens removed during surgery: * No orders in the log * Fluids: 1700 mL crystalloids Blood: none Urine Output: 300 mL Drains: aguilar Disposition: regional anesthesia administered without incident Condition: doing well without problems (Please see the Surgical Encounter Summary for any Implant and Specimen details pertinent to this patient.) Infection Bundle used? Yes Obstetric Infection Bundle: Case Acuity: Urgent/Emergent case Chlorhexidine shower night before surgery?: (not recorded) Chlorhexidine shower morning of surgery on BP?: (not recorded) 2 % Chlorhexadine-alcohol skin prep: Yes Vaginal prep povidone -iodine scrub: Yes Pre op IV antibiotics: Ancef Preop antibiotics given between 15-60 minutes prior to incision? Yes Evidence of chorioamnionitis: No Intra-op antibiotic re-dose (for surgery length >3 hours or EBL >1500cc): No Closure of subcutaneous tissue > 2 cm: No Subcuticular skin closure: Yes HPI/ Indications for Procedure: Shawn Lisa is a 22 y.o. who was admitted with preeclampsia with severe features by blood pressure. She received betamethasone and magnesium for neuroprotection. The decision was made to proceed with delivery on HD#6 secondary to persistent headache and severe range blood pressures requiring IV anti-hypertensives. The risks, benefits and alternatives were discussed including bleeding, infection and damage to surrounding structures (bowel, bladder, uterus, tubes, ovaries, ureters, blood vessels or nerves). The procedure was reviewed in detail with the patient, who had the opportunity to ask questions, all of which were answered. Consent was obtained. Procedure Description: The patient was taken to the Operating Room where spinal anesthesia was administered and found to be adequate. The patient was given Ancef 2 grams for antibiotic prophylaxis. The patient was placed in the dorsal supine position with a leftward tilt. A aguilar catheter was placed. SCDs were placed forDVT prophylaxis. The heart rate was obtained and found to be within normal limits. The patient was then prepped and draped in the usual sterile fashion. A time-out was performed with all members of the team in agreement. A Pfannenstiel skin incision was made with a scalpel and carried through to the underlying layer offascia with sharp dissection. The fascia was nicked in the midline and the incision was extended laterally with the curved Coronado scissors. The rectus muscle was dissected off with electrocautery, in the midline and the peritoneum was entered bluntly. The peritoneal incision was then extended superiorly and inferiorly to the bladder reflection. An Eagle retractor was inserted to aid with visualization. An upper segment vertical incision was made with the scalpel. The hysterotomy was extended with upward and downward traction. The amniotic fluid was ruptured for clear fluid. A hand inserted into the uterus and the infant was Delivered using breech maneuvers. The breech was elevated to the level of the hysterotomy. The left knee was flexed and the left leg was delivered with clockwise rotation of the breech. The right leg was deliveredin a similar fashion. The baby was then rotated clockwise and the left arm was delivered. The rightarm was delivered in a similar fashion. The baby was elevated out of the hysterotomy and the head de livered with Maurcieau- Smellie-Veit maneuver. Live born female infant was delivered. The cord was doubly clamped and cut. The infant was handed off to the [facility] pediatricians, who assigned Apgars of 4 and 8. Cord blood was collected. Cord gases were collected. Oxytocin was initiated to facilitate uterine contractions. The placenta was expressed from the uterine cavity, intact. The uterus, fallopian tubes and ovaries appeared normal. The uterus was cleared of all clots and debris using a dry sponge. The uterine incision was repaired with 0 vicryl in a continuous locked fashion in three layers. A baseball stitch was performed to suture the uterine serosa. The uterine incision was oozing and pressure was held as the tubal ligation was performed. The right fallopian tube was grasped with a Cony clamp and a window was made in the mesosalphinx. The distal and proximal ends of the fallopian tube were doubly suture ligated with plain gut suture. The segment of fallopian tube was removed with Metzenbaumb scissors. There was oozing from the mesosalphinx by the fimbriated end and therefore a salpingectomy was performed by placing a danilo clamp in the mesosalphinx and suture ligating the pedicle. The left fallopian tube was subsequently grasped with a Harleigh clamp. A window was made in the mesosalphinx. The distal and proximal ends of thefallopian tube were doubly suture ligated with plain gut suture. The segment of fallopian tube was removed with Metzenbaumb scissors. The fallopian tube was hemostatic. The segments of the fallopian tube were sent to pathology for permanent review. There continued to be oozing from the uterine incision and two figure of eight sutures were placed.Due to ongoing oozing after suturing and holding pressure on the incision, decision was made to apply SurgiFlo hemostatic agent to the uterine incision. Excellent hemostasis was appreciated. The Eagle retractor was removed from the abdomen. The hysterotomy and rectus muscles were checked again andfound to be hemostatic. The fascia was reapproximated with 0-vicryl in a running fashion. The subcutaneous space was well irrigated. The skin was closed with 4-0 monocryl. Sterile dressings were applied over the incision. The uterus was expressed of clots with gentle fundal massage. The patient andinfant tolerated the procedure well and were in satisfactory condition at its conclusion. Instrument, lap and needle counts were correct times two at case close. The patient was taken back to her room in stable condition. Dr. Umanzor, attending physician, was present for entire procedure. SCOOTER CANALES MD 06/18/2018 Associated attestation - Earlene Umanzor MD - 06/18/2018 5:54 PM EST Attestation: Case Date: 06/18/2018 I was present and I participated during the entire procedure (does not need to include opening and closing). Earlene Umanzor MD 06/18/2018 * Brief Op Note - Earlene Umanzor MD - 06/18/2018 12:41 PM EST Brief Operative Note Patient Name: Shawn Lisa : [id number] MR#: [id number] Case Date: 06/18/2018 Surgeon: Surgeon(s) and Role: * Earlene Umanzor MD - Primary * Scooter Canales MD - Resident-Foam Dispenser Preoperative diagnosis: 26w3d IUP, preeclampsia with severe features, undesired future fertility Postoperative diagnosis: 26w3d IUP, preeclampsia with severe features, undesired future fertility Procedure(s) (LRB): @ DELIVERY (WRVU 16.13) (N/A), classical incision, right salpingectomy, left partial salpingectomy Anesthesia: Spinal Findings: Female infant in cephalic presentation. Normal uterus (retroflexed), normal tubes and ovaries. Placenta small with marginal cord insertion. Clear amniotic fluid. Complications: None Estimated Blood Loss: 500 mL Specimens removed during surgery: Right fallopian tube and segment of left fallopian tube; cord blood Fluids: 1700 cc PRBCs: none (See Anesthesia Record/Report for Other Blood Products) Urine Output: 300 mL Drains: Aguilar Disposition: regional anesthesia administered without incident Condition: doing well without problems (Please see the Surgical Encounter Summary for any Implant and Specimen details pertinent to this patient.) Infection Bundle used? Yes Obstetric Infection Bundle: Case Acuity: Elective case Chlorhexidine shower night before surgery?: (not recorded) Chlorhexidine shower morning of surgery on BP?: (not recorded) 2 % Chlorhexadine-alcohol skin prep: Yes Vaginal prep povidone -iodine scrub: Yes Pre op IV antibiotics: Ancef Preop antibiotics given between 15-60 minutes prior to incision? Yes Evidence of chorioamnionitis: No Intra-op antibiotic re-dose (for surgery length >3 hours or EBL >1500cc): N/A Closure of subcutaneous tissue > 2 cm: N/A Subcuticular skin closure: Yes * Plan of Care - Macey Ragsdale RN - 06/18/2018 5:43 AM EST Problem: Patient Care Overview Goal: Plan of Care Review Outcome: Ongoing (Interventions Implemented as Appropriate) 06/16/1845106/17/182036 Coping/Psychosocial Plan Of Care Reviewed With -- patient;spouse Plan of Care Review Progress progress toward functional goals as expected -- OUTCOME EVALUATION NOTE: OUTCOME SUMMARY: Afebrile, elevated BPs requiring 5 & 10mg IV hydralazine. Tylenol given for QUESADA while BP elevated. Fetus active. Denies LOF, bleeding or contractions. Denies abdominal tenderness. Denies visual changes or epigastric pain. See flow sheet for more info. PLAN MOVING FORWARD: Continue with current plan of care for AP patient. Continue to offer support and education. INDIVIDUALIZED FALL PREVENTION: Assistance: Independent. Supervision: Pt encouraged to call with questions, concerns or changes. Surveillance: Purposeful rounding CPG OUTCOME EVALUATION: * Consult Note - Amaris Montalvo RN - 06/16/2018 9:41 PM EST Images from the original note were not included. Infiltration/Extravasation Scale Shawn Lisa [id number] BP01/BP01-A Infiltration appearance: Infiltration harm % for this extremity 15 Based on measurement calculation (greatest measurement X divided by length of extremity multiplied by 100= %) Considerations and Garcia: Consider the following: If the percentage of limb affected is <5% then select 1 If the percentage of limb affected is 6-25% then select 2 If the percentage of limb affected is 26-49% then select 3 If the percentage of limb affected is > 50% then always select 4 2 Skin blanched Edema 1 to 6 inches (2.5 to 15 cm) in any direction Cool to touch With or without pain Infiltration appearance score: 2 Medication Name infiltrated is NS which is a (n) none Location of infiltration:left arm: anterior Measurement in cm of length and width of affected area---Affected extremity 7 x 9 Measurement of Circumference in cm of Infiltrated area of affected extremity 28 Measurement of Circumference in cm of Unaffected extremity 28 (at same location as affected extremity) Pulses present on affected extremity yes Medicated treatment given per policy/ order: no treatment indicated Plan for continued monitoring of infiltration/extravasation Name of MD contacted #[phone] 9:42 PM Name of RN contacted ULYSSES Das 9:42 PM Name of Pharmacist if consulted NA 9:42 PM Plastics Provider contacted: no 9:42 PM Name of Plastics MD (if consulted) (Mandatory photo for infiltrations/ extravasations scoring a stage 2 or greater, but recommended for stage 1. Include measuring tape and identifier in the photo) DB2 DBA CARING FOR THIS PATIENT WILL CONTINUE TO MONITOR AND WILL ASSUME CARE, VASCULAR ACCESS WILL NOT FOLLOW THIS EVENT AT THE SIGNING OF THIS NOTE. * Plan of Care - Michelle Peralta RN - 06/16/2018 5:04 AM EST Problem: Patient Care Overview Goal: Plan of Care Review Outcome: Ongoing (Interventions Implemented as Appropriate) 06/16/18 1712 Coping/Psychosocial Plan Of Care Reviewed With patient Plan of Care Review Progress progress toward functional goals as expected OUTCOME EVALUATION NOTE: OUTCOME SUMMARY: Patient resting in bed without complaints. Denies headache, epigastric pain, or visual changes. VSS, maintaining intake and output. PLAN MOVING FORWARD: Continue to monitor blood pressures every four hours, intake and output, and daily weights. INDIVIDUALIZED FALL PREVENTION INTERVENTIONS: Patient-specific fall risk factors per assessment: [current deficits]: Independent when out of bed Assistance [level of assistance required for transfers and ambulation]:Independent Supervision [direct monitoring required during toileting and ADLs]: Independent Surveillance [continuous indirect monitoring]: Purposeful rounding Patient-specific fall prevention interventions for sensory deficits provided, if applicable: N/A CPG GOAL OUTCOME EVALUATION: Goal: Individualization & Mutuality Outcome: Ongoing (Interventions Implemented as Appropriate) 06/16/18451 Individualization Patient Specific Preferences Nonse stated Patient Specific Goals To remain Mutuality/Individual Preferences What Anxieties, Fears or Concerns Do You Have About Your Health or Care? None at this time What Questions Do You Have About Your Health or Care? None What Information Would Help Us Give You More Personalized Care? Keep me informed Goal: Fall Prevention-Safe Patient Handling Outcome: Ongoing (Interventions Implemented as Appropriate) 06/15/181939 Guerrero Fall Risk History of Falling 0 Secondary Diagnosis 15 Ambulatory Aids 0 Intravenous Therapy/Heparin/Saline Lock 20 Gait/Transferring 0 Mental Status 0 Score 35 OTHER Guerrero Fall Risk Med Restraint Interventions Safety Promotion/Fall Prevention nonskid shoes/slippers when out of bed Positioning Body Position independent Activity Activity Type up ad lisa Activity Assistance Provided independent OUTCOME EVALUATION NOTE: OUTCOME SUMMARY: No complaints voiced. Reports good movement. Denies headache, epigastric pain, or visual changes. Maintaining intake and out put. PLAN MOVING FORWARD: Continue to assess blood pressure every four hours, monitor intake and output, and weigh daily INDIVIDUALIZED FALL PREVENTION INTERVENTIONS: Patient-specific fall risk factors per assessment: [current deficits]: None Assistance [level of assistance required for transfers and ambulation]: Independent Supervision [direct monitoring required during toileting and ADLs]: Independent Surveillance [continuous indirect monitoring]: Purposeful rounding CPG GOAL OUTCOME EVALUATION: Goal: Infection Control Outcome: Ongoing (Interventions Implemented as Appropriate) 06/15/181939 Safety Interventions Isolation Precautions standard precautions maintained Infection Prevention rest/sleep promoted;single patient room provided Coping Strategies Supportive Measures active listening utilized;decision-making supported;positive reinforcement provided;self-care encouraged;verbalization of feelings encouraged Goal: Discharge Needs Assessment Outcome: Ongoing (Interventions Implemented as Appropriate) 06/16/18451 Discharge Needs Assessment Concerns To Be Addressed no discharge needs identified Provider Choice List(s) Given no Equipment Needed After Discharge none Discharge Disposition still a patient Current Health Anticipated Changes Related to Illness none Activity/Self Care Review of Systems Equipment Currently Used at Home none Living Environment Transportation Available family or friend will provide Problem: High-Risk/Critically Ill Patient (Obstetrics) Goal: Signs and Symptoms of Listed Potential Problems Will be Absent, Minimized or Managed (High-Risk/Critically Ill Patient) Signs and symptoms of listed potential problems will be absent, minimized or managed by discharge/transition of care (reference High-Risk/Critically Ill Patient (Obstetrics) CPG). Outcome: Ongoing (Interventions Implemented as Appropriate) 06/15/181939 High-Risk/Critically Ill OB Patient Problems Assessed (Critically Ill/High Risk ) all Problems Present (Critically Ill/High Risk ) cardiovascular complications * Plan of Care - Almaz Medley RN - 06/15/2018 4:43 PM EST Problem: Patient Care Overview Goal: Plan of Care Review Outcome: Ongoing (Interventions Implemented as Appropriate) 06/14/18200206/15/18 0852 Coping/Psychosocial Plan Of Care Reviewed With -- patient;significant other Plan of Care Review Progress progress toward functional goals is gradual -- OUTCOME EVALUATION NOTE: OUTCOME SUMMARY: Pt stable this shift, BP high but not treatable. Pt denies bleeding, leaking, QUESADA, vision changes orabdominal pain or cramping. Pt reports active movement and reactive NST obtained. Will continue to monitor. PLAN MOVING FORWARD: VS, q4h, daily labs INDIVIDUALIZED FALL PREVENTION INTERVENTIONS: Patient-specific fall risk factors per assessment: [current deficits]: Assistance [level of assistance required for transfers and ambulation]: independent Supervision [direct monitoring required during toileting and ADLs]: independent Surveillance [continuous indirect monitoring]: Purposeful rounding Patient-specific fall prevention interventions for sensory deficits provided, if applicable: [X] N/A CPG GOAL OUTCOME EVALUATION: * Initial Assessments - Vanessa Serna RN - 06/15/2018 12:07 PM EST Office of Care Management Initial Assessment VANESSA SERNA RN reviewed record and discussed patient with Care Team. Source of Information: Patient Introduced self/reviewed role; services accepted. Reason for Hospitalization: 22 y.o. at 25w5d weeks gestation by 8w US. She is admitted in transport from [facility] for management of preeclampsia with severe features by blood pressure Past Medical History: Diagnosis Date ??? Asthma excercise induced ??? Hypertension only with preeclampsia Hospitalizations Within the Past 30 Days: 3 admission this past week at [facility] for pre-eclampsi Anticipated Length Of Stay (If known): To be determined Current Decision-Making Capacity: Patient has full capacity Advance Care Planning: none in chart Current Coping/Education/Information Needs: Coping okay, states that she had her oldest son at 28 weeks, so has experience with this hospital, [facility], [facility], and the [facility]. Current Functional Ability: Hospitalized, up ad lisa Functional Status Prior to Admission: Independent Home Environment: lives in [place], [place] with her , Bucky Pham, and their 2 boys (ages 7and 4) Social & Family Supports/Community Resources: . 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 They have local support. Behavioral Health History: Denies Substance Use/Abuse: Never smoked Other Pertinent/Service Specific Information: Plans to name her baby girl: [facility]/Prescription Coverage: Primary Insurance: [employer] Secondary Insurance: no Prescription Coverage: [facility] Preferred Pharmacy: [facility] in [place], [place] Other: no Primary Care Provider: Shaneka Mae, PENOLOGY PROFESSOR [phone] Patient/Caregiver Goals of Treatment: To remain for as long as medically safe to do so Potential Needs for Transition of Care: Rehab/SNF: no Home Health: will accept VNA for infant when she is discharged home DME: Will need breast pump Dialysis: no Community Resources: knows about [facility] and [facility] Transportation: yes Other: no Anticipated Barriers to Discharge/Special Considerations: no Assessment: 22 y.o. at 25w5d weeks gestation admitted in transport from [facility] for management of preeclampsia with severe features by blood pressure Plan: (From [facility] &P) 1. Preeclampsia with severe feature by blood pressures -Labs: Type and screen, CBC, AST, ALT creatinine, LDH -Delivery indications:non-reassuring status and maternal deterioration -Tocolysis: not indicated -GBS status: collected on admission - status: NSTonce daily -Ultrasound: detailed morphology scan ordered -Steroid status: beta complete on 06/07 -Magnesium for neuro protection: received Mg 4 g bolus and Mg running at 2 gm/hr -Consultations: neonatology and anesthesiology -Consents obtained: Reviewed consent with the patient. Discussed risks such as maternal: bleeding, infection, need for blood transfusion, damage to nearby organs such as bladder; bowel; and ureters. Also discussed rare risks such as damage to the baby or maternal hysterectomy. Discussed benefits and alternatives. Patient had time to ask questions which were answered. Patient signed consent and itwas placed in the chart. ?? 2. contraception plan: has considered tubal ligation but is unsure and would like to discuss with her . She has private insurance and does not need a federal consent if she desires sterilization. ?? 3. Hx of asthma: no current symptoms or medications: avoid Hemabate in the setting of hemorrhage ?? A member of the Care Management team will continue to monitor progress, follow for continuity of care and assist with transition of care planning. VANESSA SERNA RN Pager: [phone] * Plan of Care - Izzy Domínguez RN - 06/15/2018 5:48 AM EST Problem: Patient Care Overview Goal: Plan of Care Review Outcome: Ongoing (Interventions Implemented as Appropriate) 06/14/18200206/14/18 2100 Coping/Psychosocial Plan Of Care Reviewed With -- patient;spouse Plan of Care Review Progress progress toward functional goals is gradual -- OUTCOME EVALUATION NOTE: ?? OUTCOME SUMMARY: Assessment as documented. PIH: Denies QUESADA/RUQ pain/blurry vision. VSS. BPs elevated but not severe range. UO adequate. DTRs WDL, no clonus detected. FM : + CTX: Denies ctx/laboring LOF/VB: Denies Social: Resting well between cares and communicating with social supports. ?? PLAN MOVING FORWARD: AP care per protocol, NST qd, safe delivery, monitor PIH ?? INDIVIDUALIZED FALL PREVENTION INTERVENTIONS: ?? Patient-specific fall risk factors per assessment: [current deficits]: IV sites & secondary dx ?? Assistance [level of assistance required for transfers and ambulation]: Independent ?? Supervision [direct monitoring required during toileting and ADLs]: None ?? Surveillance [continuous indirect monitoring]: Purposeful rounding, call light in reach ?? Patient-specific fall prevention interventions for sensory deficits provided, if applicable: ? CPG GOAL OUTCOME EVALUATION: ?? Goal: Individualization & Mutuality Outcome: Ongoing (Interventions Implemented as Appropriate) 06/13/181921 Mutuality/Individual Preferences What Anxieties, Fears or Concerns Do You Have About Your Health or Care? no What Questions Do You Have About Your Health or Care? no What Information Would Help Us Give You More Personalized Care? none Goal: Fall Prevention-Safe Patient Handling Outcome: Ongoing (Interventions Implemented as Appropriate) 06/14/182099 Guerrero Fall Risk History of Falling 0 Secondary Diagnosis 15 Ambulatory Aids 0 Intravenous Therapy/Heparin/Saline Lock 20 Gait/Transferring 0 Mental Status 0 Score 35 OTHER Guerrero Fall Risk Med Restraint Interventions Safety Promotion/Fall Prevention safety round/check completed;nonskid shoes/slippers when out of bed;fall prevention program maintained Positioning Body Position independent Activity Activity Type ambulated in room;ambulated to bathroom;up ad lisa Activity Assistance Provided independent Goal: Infection Control Outcome: Ongoing (Interventions Implemented as Appropriate) 06/14/182099 Safety Interventions Isolation Precautions standard precautions maintained Infection Prevention single patient room provided;rest/sleep promoted;equipment surfaces disinfected;environmental surveillance performed Coping Strategies Supportive Measures active listening utilized;counseling provided;decision- making supported;goal setting facilitated;positive reinforcement provided;relaxation techniques promoted;problem solving facilitated;self-care encouraged;self-reflection promoted;self-responsibility promoted;verbalization offeelings encouraged Goal: Discharge Needs Assessment Outcome: Ongoing (Interventions Implemented as Appropriate) 06/13/18192506/14/182002 Discharge Needs Assessment Concerns To Be Addressed no discharge needs identified -- Readmission Within The Last 30 Days no previous admission in last 30 days -- Provider Choice List(s) Given no -- Equipment Needed After Discharge none -- Discharge Disposition -- still a patient Current Health Anticipated Changes Related to Illness none -- Activity/Self Care Review of Systems Equipment Currently Used at Home none -- Living Environment Transportation Available family or friend will provide -- Problem: High-Risk/Critically Ill Patient (Obstetrics) Goal: Signs and Symptoms of Listed Potential Problems Will be Absent, Minimized or Managed (High-Risk/Critically Ill Patient) Signs and symptoms of listed potential problems will be absent, minimized or managed by discharge/transition of care (reference High-Risk/Critically Ill Patient (Obstetrics) CPG). Outcome: Ongoing (Interventions Implemented as Appropriate) 06/14/18 2100 High-Risk/Critically Ill OB Patient Problems Assessed (Critically Ill/High Risk ) all Problems Present (Critically Ill/High Risk ) cardiovascular complications * Plan of Care - Alistair Goetz RN - 06/14/2018 8:07 PM EST Problem: Patient Care Overview Goal: Plan of Care Review Outcome: Ongoing (Interventions Implemented as Appropriate) 06/14/18 1800 06/14/182002 Coping/Psychosocial Plan Of Care Reviewed With patient;spouse -- Plan of Care Review Progress -- progress toward functional goals is gradual OUTCOME EVALUATION NOTE: OUTCOME SUMMARY: Pt reports QUESADA to have resolved. Denies visual change, epigastric pain, LOF, or bleeding. Facial edema decreased throughout shift. +FM. Daily NST completed. Formal US completed. MD Wynn reviewed results with pt, SO, and family. Pt reported lightheadedness and dizziness this morning - related to lower, for her, BP. Resolved when BP 140's/90's. PLAN MOVING FORWARD: Continue to monitor for worsening pre-eclampsia. See MD note for further details. INDIVIDUALIZED FALL PREVENTION INTERVENTIONS: Patient-specific fall risk factors per assessment: [current deficits]: NA Assistance [level of assistance required for transfers and ambulation]: Independent Supervision [direct monitoring required during toileting and ADLs]: NA Surveillance [continuous indirect monitoring]: Purposeful rounding, VS, daily labs, daily NST Patient-specific fall prevention interventions for sensory deficits provided, if applicable: NA CPG GOAL OUTCOME EVALUATION: Progressing toward goal. Goal: Individualization & Mutuality Outcome: Ongoing (Interventions Implemented as Appropriate) 06/13/18 1922 Mutuality/Individual Preferences What Anxieties, Fears or Concerns Do You Have About Your Health or Care? no What Questions Do You Have About Your Health or Care? no What Information Would Help Us Give You More Personalized Care? none Goal: Fall Prevention-Safe Patient Handling Outcome: Ongoing (Interventions Implemented as Appropriate) 06/14/18 0825 06/14/18 0829 Guerrero Fall Risk History of Falling 0 -- Secondary Diagnosis 15 -- Ambulatory Aids 0 -- Intravenous Therapy/Heparin/Saline Lock 20 -- Gait/Transferring 0 -- Mental Status 0 -- Score 35 -- OTHER Guerrero Fall Risk Med -- Restraint Interventions Safety Promotion/Fall Prevention -- nonskid shoes/slippers when out of bed;safety round/check completed Positioning Body Position -- independent Activity Activity Type -- ambulated to bathroom Activity Assistance Provided -- independent Goal: Infection Control Outcome: Ongoing (Interventions Implemented as Appropriate) 06/14/18 0829 06/14/18 1800 Safety Interventions Isolation Precautions standard precautions maintained -- Infection Prevention single patient room provided;environmental surveillance performed;rest/sleep promoted -- Coping Strategies Supportive Measures -- active listening utilized;counseling provided;decision- making supported;goalsetting facilitated;positive reinforcement provided;relaxation techniques promoted;self-care encouraged;self-responsibility promoted;verbalization of feelings encouraged Goal: Discharge Needs Assessment Outcome: Ongoing (Interventions Implemented as Appropriate) 06/13/18 1926 06/14/182002 Discharge Needs Assessment Concerns To Be Addressed no discharge needs identified -- Readmission Within The Last 30 Days no previous admission in last 30 days -- Provider Choice List(s) Given no -- Equipment Needed After Discharge none -- Discharge Disposition -- still a patient Current Health Anticipated Changes Related to Illness none -- Activity/Self Care Review of Systems Equipment Currently Used at Home none -- Living Environment Transportation Available family or friend will provide -- Problem: High-Risk/Critically Ill Patient (Obstetrics) Goal: Signs and Symptoms of Listed Potential Problems Will be Absent, Minimized or Managed (High-Risk/Critically Ill Patient) Signs and symptoms of listed potential problems will be absent, minimized or managed by discharge/transition of care (reference High-Risk/Critically Ill Patient (Obstetrics) CPG). Outcome: Ongoing (Interventions Implemented as Appropriate) 06/14/182002 High-Risk/Critically Ill OB Patient Problems Assessed (Critically Ill/High Risk ) all Problems Present (Critically Ill/High Risk ) cardiovascular complications * Consult Note - O'Noemi, Magda Washington MD - 06/14/2018 8:30 AM EST consult: We were asked by the obstetrical service, Dr. Hadley to provide consultation on Shawn Lisa, a 22 y.o. old patient on the birthing pavilion with a female fetus at 25 5/7 weeks gestation. I reviewed history in chart as well as oral history from Dr. Hadley. She was referred as a maternal- transfer from [facility]. Relevant History: She is admitted in transport from [facility] for management of preeclampsia with severe features by blood pressure. She was admitted at [facility] on 06/06/2018 for blood pressure management. Her labs at that time were notable for creatinine 0.6, AST 16, UPC 4.09, 24 hour urine 2327 grams. She received a course of betamethasone at that time. She was started on labetalol 600 mg BID and nifedipine 30mg daily. ?? She represented to the hospital today due to a headache and was found to have severe range blood pressures. She received Magnesium for seizure prophylaxis and was transported [place] [facility] [place]. Recommendations and advice discussed: I met with Shawn and her grandparents to discuss the delivery and management of infant bornat 25-26 weeks gestation. We discussed specific management likely for the anticipated problems of prematurity like resuscitation and stabilization at delivery including intubation and surfactant replacement, mechanical ventilation and need for vascular access( central lines). We also discussed the risk for serious problems associated with prematurity with termite control service representative neurodevelopmental consequences such as intracranial bleeding, eye injury (ROP) and lung injury. We discussed in brief the general issues of intensive care, including team composition, philosophy of parents as collaborators and active participants in care as well as policies regarding rounds, visitation by family members and friends. Mom asked appropriate question which were addressed during our discussion. We will be happy to return to answer any question if the need arises. Time in consultation: 40 minutes were spent in consultation, with 35 minutes spent directly counseling patient. Thank you for requesting consultation by the neonatology service. We will continue to follow coursealong with you. MAGDA GODDARD MD * Plan of Care - Izzy Domínguez RN - 06/14/2018 5:17 AM EST Problem: Patient Care Overview Goal: Plan of Care Review Outcome: Ongoing (Interventions Implemented as Appropriate) 06/13/18 1926 06/13/182008 Coping/Psychosocial Plan Of Care Reviewed With -- family Plan of Care Review Progress no change -- OUTCOME EVALUATION NOTE: Assessment as documented. PIH: Endorses frequent QUESADA brought on after receiving nifedipine yesterday, unrelieved with tylenol.Compazine IVP administered with positive effect. Pt denies RUQ pain/blurry vision. x1 critical BP this shift, WDL upon recheck. UO adequate. +1-2 Edema in face/hands. See Doc Flowsheets for mag checks. FM : + CTX: Denies ctx/laboring, abdomen soft & non-tender to palpation. Bleeding/LOF: Denies. Social: Resting well between cares in a low stim environment, FOB at bedside. ?? INDIVIDUALIZED FALL PREVENTION INTERVENTIONS: ?? Patient-specific fall risk factors per assessment: [current deficits]: IV sites & secondary dx ?? Assistance [level of assistance required for transfers and ambulation]: Independent ?? Supervision [direct monitoring required during toileting and ADLs]: None ?? Surveillance [continuous indirect monitoring]: Purposeful rounding, call light in reach ?? Patient-specific fall prevention interventions for sensory deficits provided, if applicable: ? CPG GOAL OUTCOME EVALUATION: ?? Goal: Individualization & Mutuality Outcome: Ongoing (Interventions Implemented as Appropriate) 06/13/18 192 Mutuality/Individual Preferences What Anxieties, Fears or Concerns Do You Have About Your Health or Care? no What Questions Do You Have About Your Health or Care? no What Information Would Help Us Give You More Personalized Care? none Goal: Fall Prevention-Safe Patient Handling Outcome: Ongoing (Interventions Implemented as Appropriate) 06/13/182008 [place] Fall Risk History of Falling 0 Secondary Diagnosis 15 Ambulatory Aids 0 Intravenous Therapy/Heparin/Saline Lock 20 Gait/Transferring 0 Mental Status 0 Score 35 OTHER [place] Fall Risk Med Restraint Interventions Safety Promotion/Fall Prevention safety round/check completed;nonskid shoes/slippers when out of bed;fall prevention program maintained Positioning Body Position independent Activity Activity Type ambulated to bathroom Activity Assistance Provided independent Goal: Infection Control Outcome: Ongoing (Interventions Implemented as Appropriate) 06/13/182008 Safety Interventions Isolation Precautions standard precautions maintained Infection Prevention single patient room provided;rest/sleep promoted;equipment surfaces disinfected;environmental surveillance performed Coping Strategies Supportive Measures active listening utilized;counseling provided;decision- making supported;goal setting facilitated;positive reinforcement provided;relaxation techniques promoted;problem solving facilitated;self-care encouraged;self-reflection promoted;self-responsibility promoted;verbalization offeelings encouraged Goal: Discharge Needs Assessment Outcome: Ongoing (Interventions Implemented as Appropriate) 06/13/181925 Discharge Needs Assessment Concerns To Be Addressed no discharge needs identified Readmission Within The Last 30 Days no previous admission in last 30 days Provider Choice List(s) Given no Equipment Needed After Discharge none Discharge Disposition still a patient Current Health Anticipated Changes Related to Illness none Activity/Self Care Review of Systems Equipment Currently Used at Home none Living Environment Transportation Available family or friend will provide Problem: High-Risk/Critically Ill Patient (Obstetrics) Goal: Signs and Symptoms of Listed Potential Problems Will be Absent, Minimized or Managed (High-Risk/Critically Ill Patient) Signs and symptoms of listed potential problems will be absent, minimized or managed by discharge/transition of care (reference High-Risk/Critically Ill Patient (Obstetrics) CPG). Outcome: Ongoing (Interventions Implemented as Appropriate) 06/13/182008 High-Risk/Critically Ill OB Patient Problems Assessed (Critically Ill/High Risk ) all Problems Present (Critically Ill/High Risk ) cardiovascular complications * Consult Note - Liliane Low RN - 06/13/2018 8:55 PM EST LABS DRAWN RIGHT AC. PATIENT TOLERATED WELL. * Plan of Care - Alistair Goetz RN - 06/13/2018 7:33 PM EST Problem: Patient Care Overview Goal: Plan of Care Review Outcome: Ongoing (Interventions Implemented as Appropriate) 06/13/181925 Coping/Psychosocial Plan Of Care Reviewed With spouse Plan of Care Review Progress no change OUTCOME EVALUATION NOTE: OUTCOME SUMMARY: Pt arrived via ambulance. Oriented to room and call [place] system. Reports mild QUESADA after afternoon Nifedipine. Denies visual change, epigastric pain, LOF, bleeding, or ctx. Reports facial and upper armedema. MD team aware of pt arrival and in to see pt. Anesthesia consult completed. ICN in to see pt. Pt aware of POC and questions answered. PLAN MOVING FORWARD: Continue to monitor for worsening s/s of pre-eclampsia. Continue Magnesium infusion. INDIVIDUALIZED FALL PREVENTION INTERVENTIONS: Patient-specific fall risk factors per assessment: [current deficits]: Magnesium infusion Assistance [level of assistance required for transfers and ambulation]: Independent, ambulates withsteady gait. Supervision [direct monitoring required during toileting and ADLs]: NA Surveillance [continuous indirect monitoring]: Purposeful rounding, VS, I/O, labs Patient-specific fall prevention interventions for sensory deficits provided, if applicable: NA CPG GOAL OUTCOME EVALUATION: No change Goal: Individualization & Mutuality Outcome: Ongoing (Interventions Implemented as Appropriate) 06/13/18 192 Mutuality/Individual Preferences What Anxieties, Fears or Concerns Do You Have About Your Health or Care? no What Questions Do You Have About Your Health or Care? no What Information Would Help Us Give You More Personalized Care? none Goal: Fall Prevention-Safe Patient Handling Outcome: Ongoing (Interventions Implemented as Appropriate) 06/13/18 1305 06/13/18 1605 [place] Fall Risk History of Falling 0 -- Secondary Diagnosis 15 -- Ambulatory Aids 0 -- Intravenous Therapy/Heparin/Saline Lock 20 -- Gait/Transferring 0 -- Mental Status 0 -- Score 35 -- OTHER [place]ro Fall Risk Med -- Restraint Interventions Safety Promotion/Fall Prevention nonskid shoes/slippers when out of bed;safety round/check completed -- Positioning Body Position independent -- Activity Activity Type -- ambulated to bathroom Activity Assistance Provided -- independent Goal: Infection Control Outcome: Ongoing (Interventions Implemented as Appropriate) 06/13/18 1305 Safety Interventions Isolation Precautions standard precautions maintained Infection Prevention single patient room provided;environmental surveillance performed Coping Strategies Supportive Measures active listening utilized;counseling provided;decision- making supported;goal setting facilitated;positive reinforcement provided;self- care encouraged;self-responsibility promoted;self-reflection promoted;verbalization of feelings encouraged Goal: Discharge Needs Assessment Outcome: Ongoing (Interventions Implemented as Appropriate) 06/13/181925 Discharge Needs Assessment Concerns To Be Addressed no discharge needs identified Readmission Within The Last 30 Days no previous admission in last 30 days Provider Choice List(s) Given no Equipment Needed After Discharge none Discharge Disposition still a patient Current Health Anticipated Changes Related to Illness none Activity/Self Care Review of Systems Equipment Currently Used at Home none Living Environment Transportation Available family or friend will provide Problem: High-Risk/Critically Ill Patient (Obstetrics) Goal: Signs and Symptoms of Listed Potential Problems Will be Absent, Minimized or Managed (High-Risk/Critically Ill Patient) Signs and symptoms of listed potential problems will be absent, minimized or managed by discharge/transition of care (reference High-Risk/Critically Ill Patient (Obstetrics) CPG). Outcome: Ongoing (Interventions Implemented as Appropriate) 06/13/18 1926 High-Risk/Critically Ill OB Patient Problems Assessed (Critically Ill/High Risk ) all Problems Present (Critically Ill/High Risk ) cardiovascular complications documented in this encounter Plan of Treatment Scheduled Orders Name Type Priority Associated Diagnoses Orde r Schedule US OB Umbilical Artery Doppler Imaging Routine Once PRN (for Ra diant use) for 1 Occurrences starting 06/17/2018 until 06/17/2018 US OB Biophysical Profile WO Nst Imaging Routine Once PRN (for Ra diant use) for 1 Occurrences starting 06/18/2018 until 06/18/2018 documented as of this encounter Procedures Procedure Name Priority Date/Time Associated Diagnosis Comments HEMOGRAM Routine 06/19/2018 8:32 AM EST DIFFERENTIAL, AUTOMATED Routine 06/19/19 8:32 AM EST CREATININE Routine 06/19/2018 8:32 AM EST CBC (WITH DIFF) Routine 06/19/2018 8:32 AM EST HEMOGRAM STAT 06/18/2018 8:20 PM EST DIFFERENTIAL, AUTOMATED STAT 06/18/19 8:20 PM EST CREATININE STAT 06/18/2018 8:20 PM EST CBC (WITH DIFF) STAT 06/18/2018 8:20 PM EST ASPARTATE AMINOTRANSFERASE STAT 06/18/2018 8:20 PM EST SPECIMEN TO PATHOLOGY Routine 06/18/2018 2:52 PM EST SPECIMEN TO PATHOLOGY Routine 06/18/2018 12:54 PM EST SURGICAL PATHOLOGY REPORT Routine 06/18/2018 11:15 AM EST @FALLOPIAN TUBE(S), TRANSECTION OR LIGATION, ABD APPROACH, POST- (WRVU 5.28) 06/18/2018 10:14 AM EST @ DELIVERY (WRVU 16.13) 06/18/2018 10:14 AM EST ABORH RECHECK STATUS Routine 06/18/2018 9:41 AM EST ABO/RH TYPING Routine 06/18/2018 9:41 AM EST ANTIBODY SCREEN Routine 06/18/2018 9:41 AM EST TYPE AND SCREEN ([facility]/ANGELA) Routine 06/18/2018 9:41 AM EST HEMOGRAM STAT 06/18/2018 8:30 AM EST DIFFERENTIAL, AUTOMATED STAT 06/18/19 8:30 AM EST CREATININE STAT 06/18/2018 8:30 AM EST CBC (WITH DIFF) STAT 06/18/2018 8:30 AM EST ASPARTATE AMINOTRANSFERASE STAT 06/18/2018 8:30 AM EST HEMOGRAM Routine 06/18/2018 2:30 AM EST DIFFERENTIAL, AUTOMATED Routine 06/18/19 2:30 AM EST CREATININE Routine 06/18/2018 2:30 AM EST CBC (WITH DIFF) Routine 06/18/2018 2:30 AM EST ASPARTATE AMINOTRANSFERASE Routine 06/18/2018 2:30 AM EST ASPARTATE AMINOTRANSFERASE Routine 06/17/2018 8:00 PM EST HEMOGRAM Routine 06/17/2018 6:55 PM EST DIFFERENTIAL, AUTOMATED Routine 06/17/19 6:55 PM EST CREATININE STAT 06/17/2018 6:55 PM EST CBC (WITH DIFF) Routine 06/17/2018 6:55 PM EST HEMOGRAM STAT 06/17/2018 10:55 AM EST DIFFERENTIAL, AUTOMATED STAT 06/17/19 19 10:55 AM EST CREATININE STAT 06/17/2018 10:55 AM EST CBC (WITH DIFF) STAT 06/17/2018 10:55 AM EST ASPARTATE AMINOTRANSFERASE STAT 06/17/2018 10:55 AM EST HEMOGRAM Routine 06/17/2018 4:45 AM EST DIFFERENTIAL, AUTOMATED Routine 06/17/19 19 4:45 AM EST CREATININE Routine 06/17/2018 4:45 AM EST CBC (WITH DIFF) Routine 06/17/2018 4:45 AM EST ASPARTATE AMINOTRANSFERASE Routine 06/17/2018 4:45 AM EST HEMOGRAM Routine 06/16/2018 4:30 AM EST DIFFERENTIAL, AUTOMATED Routine 06/16/19 19 4:30 AM EST CREATININE Routine 06/16/2018 4:30 AM EST CBC (WITH DIFF) Routine 06/16/2018 4:30 AM EST ASPARTATE AMINOTRANSFERASE Routine 06/16/2018 4:30 AM EST HEMOGRAM Routine 06/15/2018 5:05 AM EST DIFFERENTIAL, AUTOMATED Routine 06/15/19 19 5:05 AM EST CREATININE Routine 06/15/2018 5:05 AM EST CBC (WITH DIFF) Routine 06/15/2018 5:05 AM EST ASPARTATE AMINOTRANSFERASE Routine 06/15/2018 5:05 AM EST US OB DETAILED MORPHOLOGY Routine 06/14/2018 11:35 AM EST HEMOGRAM STAT 06/14/2018 2:55 AM EST DIFFERENTIAL, AUTOMATED STAT 06/14/19 19 2:55 AM EST CREATININE STAT 06/14/2018 2:55 AM EST CBC (WITH DIFF) STAT 06/14/2018 2:55 AM EST ASPARTATE AMINOTRANSFERASE STAT 06/14/2018 2:55 AM EST HEMOGRAM STAT 06/13/2018 8:50 PM EST DIFFERENTIAL, AUTOMATED STAT 06/13/19 19 8:50 PM EST CREATININE STAT 06/13/2018 8:50 PM EST CBC (WITH DIFF) STAT 06/13/2018 8:50 PM EST ASPARTATE AMINOTRANSFERASE STAT 06/13/2018 8:50 PM EST GROUP B STREPTOCOCCUS SCREEN Routine 06/13/2018 2:50 PM EST GROUP B STREP CULTURE SCREEN Routine 06/13/2018 2:50 PM EST PROTEIN/CREATININE RATIO, URINE STAT 06/13/2018 2:49 PM EST HEMOGRAM Routine 06/13/2018 2:47 PM EST DIFFERENTIAL, AUTOMATED Routine 06/13/19 19 2:47 PM EST GREEN TUBE HOLD Routine 06/13/2018 2:47 PM EST LAVENDER TUBE HOLD Routine 06/13/2018 2: 47 PM EST CREATININE Routine 06/13/2018 2:47 PM EST ASPARTATE AMINOTRANSFERASE Routine 06/13/2018 2:47 PM EST ABORH RECHECK STATUS STAT 06/13/2018 2:46 PM EST ABO/RH TYPING STAT 06/13/2018 2:46 PM EST ANTIBODY SCREEN STAT 06/13/2018 2:46 PM EST TYPE AND SCREEN ([facility]) STAT 06/13/2018 2:46 PM EST documented in this encounter Results * (ABNORMAL) Differential, Automated (06/19/2018 8:32 AM EST) Neutrophil % 81.3 % [facility] Neutrophil Absolute 13.60(H) 1.70 - 6.10 x10(3)/mc L [facility] Lymph % 13.0 % [facility] Lymphocytes Abs 2.2 0.9 - 3.2 x10(3)/ L [facility] Monocyte % 4.2 % [facility] Monocyte Abs 0.7 0.3 - 0.9 x10(3)/mc L [facility] Eos % 0.5 % [facility] Eosinophils Abs 0.1 0.0 - 0.4 x10(3)/ L [facility] Basophil % 0.4 % [facility] Baso Absolute 0.1 0.0 - 0.1 x10(3)/mc L [facility] Immature Gran % 0.60 % [facility] Comment: Immature granulocytes(IG's)percentage and absolute count will include metamyelocytes, myelocytes, and promyelocytes. Blood smears from CBCs yielding IG's will be scanned manually for concordance. If this scan disagrees with the automated IG or if promyelocytes are noted, a manual differential will be performed. Immature Gran Absolute 0.10(H) 0.00 - 0.04 x10(3)/mc L [facility] Blood specimen (specimen) 06/19/2018 8:32 AM EST 06/19/2018 8:43 AM EST Narrative Resulting Agency Comment Spec In Lab Scooter Canales MD HEMATOLOGY ORDERABLE S [facility] [place] [address] * (ABNORMAL) Hemogram (06/19/2018 8:32 AM EST) White Blood Cell 16.7(H) 4.0 - 9.5 x10(3)/mc L [facility] Red Blood Cell 3.49(L) 4.00 - 5.21 x10(6)/mc L [facility] Hemoglobin 10.7(L) 11.7 - 15.5 gm/dL [facility] Hematocrit 30.5(L) 35.7 - 45.8 % [facility] Mean Cell Volume 87.4 82.6 - 94.4 fL [facility] Mean Cell Hemoglobin 30.7 27.1 - 32.0 pg [facility] Mean Cell Hemoglobin Concentration 35.1(H) 31.7 - 35.0 gm/dL [facility] Platelet 196 145 - 357 x10(3)/mc L [facility] RDW Standard Deviation 41.4 37.0 - 46.0 fL [facility] RDW coefficient of variation 12.9 11.5 - 14.1 % [facility] Mean Platelet Volume 11.4 7.6 - 12.9 fL [facility] NRBC% auto 0.0 % [facility] NRBC Absolute 0.000 0.000 - 0.000 x10(3)/mc L [facility] Blood specimen (specimen) 06/19/2018 8:32 AM EST 06/19/2018 8:43 AM EST Narrative Resulting Agency Comment Spec In Lab Scooter Canales MD HEMATOLOGY ORDERABLE S [facility] [place] [address] * (ABNORMAL) Creatinine (06/19/2018 8:32 AM EST) Creatinine 0.61(L) 0.70 - 1.20 mg/dL [facility] Est Glomerular Filtration Rate 127 >=60 mL/min/1.7 3 m?? [facility] Comment: The eGFR was calculated using the CKD-EPI equation. As with all creatinine based estimates of kidney function, eGFR values calculated with the CKD-EPI equation are not accurate in patients with acute kidney failure, extremes of body mass or the acutely ill. [email or web address] e[facility] 147 >=60 mL/min/1.7 3 m?? [facility] Comment: The eGFR was calculated using the CKD-EPI equation. As with all creatinine based estimates of kidney function, eGFR values calculated with the CKD-EPI equation are not accurate in patients with acute kidney failure, extremes of body mass or the acutely ill. [email or web address] Blood specimen (specimen) 06/19/2018 8:32 AM EST 06/19/2018 8:43 AM EST Narrative Resulting Agency Comment Spec In Lab E Almaz Drake MD CHEMISTRY ORDERAB LES [facility] [place] [address] * (ABNORMAL) Differential, Automated (06/18/2018 8:20 PM EST) Neutrophil % 86.7 % [facility] Neutrophil Absolute 19.52(H) 1.70 - 6.10 x10(3)/mc L [facility] Lymph % 7.9 % [facility] Lymphocytes Abs 1.8 0.9 - 3.2 x10(3)/mc L [facility] Monocyte % 3.7 % [facility] Monocyte Abs 0.8 0.3 - 0.9 x10(3)/mc L [facility] Eos % 0.3 % [facility] Eosinophils Abs 0.1 0.0 - 0.4 x10(3)/[facility] Basophil % 0.4 % [facility] Baso Absolute 0.1 0.0 - 0.1 x10(3)/ L [facility] Immature Gran % 1.00 % [facility] Comment: Immature granulocytes(IG's)percentage and absolute count will include metamyelocytes, myelocytes, and promyelocytes. Blood smears from CBCs yielding IG's will be scanned manually for concordance. If this scan disagrees with the automated IG or if promyelocytes are noted, a manual differential will be performed. Immature Gran Absolute 0.22(H) 0.00 - 0.04 x10(3)/[facility] Blood specimen (specimen) 06/18/2018 8:20 PM EST 06/18/2018 9:08 PM EST Narrative Resulting Agency Comment Spec In Lab Anuradha Hicks MD HEMATOLOGY ORDERABLE S [facility] [place] [address] * (ABNORMAL) Hemogram (06/18/2018 8:20 PM EST) White Blood Cell 22.5(H) 4.0 - 9.5 x10(3)/ L [facility] Red Blood Cell 3.67(L) 4.00 - 5.21 x10(6)/mc L [facility] Hemoglobin 11.1(L) 11.7 - 15.5 gm/dL [facility] Hematocrit 32.3(L) 35.7 - 45.8 % [facility] Mean Cell Volume 88.0 82.6 - 94.4 fL [facility] Mean Cell Hemoglobin 30.2 27.1 - 32.0 pg [facility] Mean Cell Hemoglobin Concentration 34.4 31.7 - 35.0 gm/dL [facility] Platelet 199 145 - 357 x10(3)/mc L [facility] RDW Standard Deviation 41.3 37.0 - 46.0 fL [facility] RDW coefficient of variation 12.8 11.5 - 14.1 % [facility] Mean Platelet Volume 11.8 7.6 - 12.9 fL [facility] NRBC% auto 0.0 % [facility] NRBC Absolute 0.000 0.000 - 0.000 x10(3)/mc L [facility] Blood specimen (specimen) 06/18/2018 8:20 PM EST 06/18/2018 9:08 PM EST Narrative Resulting Agency Comment Spec In Lab Anuradha Hicks MD HEMATOLOGY ORDERABLE S Performing Organization Address City/State/[place] Co de Phone Number [facility] [place] [address] * (ABNORMAL) Creatinine (06/18/2018 8:20 PM EST) Creatinine 0.58(L) 0.70 - 1.20 mg/dL [facility] Est Glomerular Filtration Rate 129 >=60 mL/min/1.7 3 m?? [facility] Comment: The eGFR was calculated using the CKD-EPI equation. As with all creatinine based estimates of kidney function, eGFR values calculated with the CKD-EPI equation are not accurate in patients with acute kidney failure, extremes of body mass or the acutely ill. [email or web address] eGFR 150 >=60 mL/min/1.7 3 m?? [facility] Comment: The eGFR was calculated using the CKD-EPI equation. As with all creatinine based estimates of kidney function, eGFR values calculated with the CKD-EPI equation are not accurate in patients with acute kidney failure, extremes of body mass or the acutely ill. [email or web address] Blood specimen (specimen) 06/18/2018 8:20 PM EST 06/18/2018 9:08 PM EST Narrative Resulting Agency Comment Spec In Lab E Almaz Drake MD CHEMISTRY ORDERAB LES Performing Organization Address [facility]/[place] Co de Phone Number [facility] [place] [address] * Aspartate Aminotransferase (06/18/2018 8:20 PM EST) Aspartate Aminotransferase 18 0 - 30 unit/L [facility] Blood specimen (specimen) 06/18/2018 8:20 PM EST 06/18/2018 9:08 PM EST Narrative Resulting Agency Comment Spec In Lab E Almaz Drake MD CHEMISTRY ORDERAB LES Performing Organization Address [facility]/[place] Co de Phone Number [facility] [place] [place] [address] * Specimen to Pathology (06/18/2018 2:52 PM EST) AP Specimen 06/18/2018 2:52 PM EST 06/19/2018 9:40 AM EST Narrative [facility] - 06/19/2018 9:40 AM EST Specimen requisition ordered. ??Separate Pathology report to follow Resulting Agency Comment Spec In Lab E Almaz Drake MD PATHOLOGY/CYTOLOG Y ORDERABLES Performing Organization Address [facility]/[place] Co de [place] [address] * Specimen to Pathology (06/18/2018 12:54 PM EST) AP Specimen 06/18/2018 12:5 4 PM EST 06/19/2018 9:40 AM EST Narrative [facility] - 06/19/2018 9:40 AM EST Specimen requisition ordered. ??Separate Pathology report to follow Resulting Agency Comment Spec In Lab E Almaz Drake MD PATHOLOGY/CYTOLOG Y ORDERABLES Performing Organization Address [facility]/[place] Co de Phone Number [facility] [place] [address] * Surgical Pathology Report (06/18/2018 11:15 AM EST) Final Diagnosis [id number] ? Location: BP; BP01; A The signing pathologist has (i) examined the relevant preparation(s) for the specimen(s) and (ii) rendered or confirmed the diagnosis(es). . ?Surgical Pathology DIAGNOSIS A - ??Placenta (47.0 grams): ?1. Third-trimester placenta. ?2. Mild chorioamnionitis. ?3. No evidence of funisitis. B - Left fallopian tube: ?Completely transected fallopian tube. C - Right fallopian tube: ?Completely transected fallopian tube. CR-0 Electronically signed by: ??Lui MAGUIRE, Kiet Young Verified: ??06/25/2018 ?Pathologist Performed at: ??[facility] [place], [place], [place] CLINICAL INFORMATION Specimen Submitted: A - Placenta B - Left fallopian tube C - Right fallopian tube Clinical History and Diagnosis: placenta at 26 weeks, preeclampsia SPECIMEN PROCESSING A - Labeled/Fixative: Placenta, fresh. Quantity/Size/Nikos ght: Single, 9.5 x 8.0 x 1.4 cm, 47.0 grams. Integrity: Intact. Shape: Irregular. Accessory lobe: Succenturiate lobe, 2.6 x 2.1 x 0.5 cm. Membranes: ? - Insertion: 100 percent marginal. ? - Color and Clarity: [place] and translucent. Cord: ? - Size: 20.2 x 1.1 x 1.1 cm. ? - Number of Vessels: Three. ? - Insertion site: Velamentous. Surface: ? - Color and Clarity: Red-purple and translucent. Maternal Surface: Dark red, disrupted and torn, completeness cannot be determined. Parenchyma: Dark red, spongy. ? - Lesions: There is a 0.5 x 0.5 x 0.4 cm firm white rubbery lesion. The lesions occupy approximately 1 percent of the parenchymal volume. [place] [employer] [place] sections in 7 cassettes as follows: ? A1: Membrane roll ? A2: Proximal and distal cord ? A3-A5: Full thickness parenchyma ? A6: [place] accessory lobe ? A7: [place] parenchymal lesion . SPECIMEN PROCESSING B - Labeled/Fixative: Left fallopian tube, formalin. Quantity/Size: Single, 2.5 x 1.1 x 0.7 cm. Tissue Description: Segments of fallopian tubes without fimbria Sections/Processi ng: [place] sections in 1 cassette labeled B1. C - Labeled/Fixative: Right fallopian tube, formalin. Quantity/Size: Single, 4.1 x 1.1 x 1.0 cm. Tissue Description: Segments of fallopian tubes with fimbria Sections/Processi ng: [place] [employer] [place] sections in 1 cassette labeled C1. knr 06/25/2018 2:16 PM EST [facility] TISSUE SPECIMEN FROM PLACENTA / Unknown 06/18/2018 11:15 AM EST 06/18/2018 11:15 AM EST False Vocal Cords, Bilateral 06/18/2018 11:15 AM EST 06/18/2018 11:15 AM EST False Vocal Cords, Bilateral 06/18/2018 11:15 AM EST 06/18/2018 11:15 AM EST Scooter Canales MD PATHOLOGY/CYTOLOGY O RDERABLES Performing Organization Address City/[facility]/ZIP Co de Phone Number [facility] [place] [place] [address] * ABORH Recheck Status (06/18/2018 9:41 AM EST) ABORH Type Recheck Completed [facility] Blood specimen (specimen) 06/18/2018 9:41 AM EST 06/18/2018 10:04 AM EST Narrative Resulting Agency Comment Spec In Lab Scooter Canales MD BLOOD BANK LAB ORDER ALEA Performing Organization Address City/[facility]/ZIP Co de Phone Number [facility] [place] [address] * Antibody screen (06/18/2018 9:41 AM EST) Pathologist [facility] Ab Screen Interp Negative [facility] Expires at [id number] on: 06/21/2018 [facility] Blood specimen (specimen) 06/18/2018 9:41 AM EST 06/18/2018 10:04 AM EST Narrative Resulting Agency Comment Spec In Lab Scooter Canales MD BLOOD BANK LAB ORDER ALEA Performing Organization Address City/[facility]/ZIP Co de Phone Number [facility] [place] [place] [address] * ABO/Rh Typing (06/18/2018 9:41 AM EST) [facility] ABORH Type A Pos [facility] Blood specimen (specimen) 06/18/2018 9:41 AM EST 06/18/2018 10:04 AM EST Narrative Resulting Agency Comment Spec In Lab Scooter Canales MD BLOOD BANK LAB ORDER ALEA Performing Organization Address City/[facility]/ZIP Co de Phone Number [facility] [place] [place] [address] * (ABNORMAL) Differential, Automated (06/18/2018 8:30 AM EST) [facility] Neutrophil % 76.6 % [facility] Neutrophil Absolute 9.72(H) 1.70 - 6.10 x10(3)/mc L [facility] Lymph % 16.7 % [facility] Lymphocytes Abs 2.1 0.9 - 3.2 x10(3)/mc L [facility] Monocyte % 4.7 % [facility] Monocyte Abs 0.6 0.3 - 0.9 x10(3)/mc L [facility] Eos % 0.9 % [facility] Eosinophils Abs 0.1 0.0 - 0.4 x10(3)/ L [facility] Basophil % 0.6 % [facility] Baso Absolute 0.1 0.0 - 0.1 x10(3)/[facility] Immature Gran % 0.50 % [facility] Comment: Immature granulocytes(IG's)percentage and absolute count will include metamyelocytes, myelocytes, and promyelocytes. Blood smears from CBCs yielding IG's will be scanned manually for concordance. If this scan disagrees with the automated IG or if promyelocytes are noted, a manual differential will be performed. Immature Gran Absolute 0.06(H) 0.00 - 0.04 x10(3)/[facility] Blood specimen (specimen) 06/18/2018 8:30 AM EST 06/18/2018 8:37 AM EST Narrative Resulting Agency Comment Spec In Lab Anuradha Hicks MD HEMATOLOGY ORDERABLE S Performing Organization Address City/State/[place] Co de Phone Number [facility] [place] [place] [address] * (ABNORMAL) Hemogram (06/18/2018 8:30 AM EST) White Blood Cell 12.7(H) 4.0 - 9.5 x10(3)/[facility] Red Blood Cell 4.26 4.00 - 5.21 x10(6)/[facility] Hemoglobin 13.1 11.7 - 15.5 gm/dL [facility] Hematocrit 36.9 35.7 - 45.8 % [facility] Mean Cell Volume 86.6 82.6 - 94.4 fL [facility] Mean Cell Hemoglobin 30.8 27.1 - 32.0 pg [facility] Mean Cell Hemoglobin Concentration 35.5(H) 31.7 - 35.0 gm/dL [facility] Platelet 212 145 - 357 x10(3)/[facility] RDW Standard Deviation 40.4 37.0 - 46.0 fL [facility] RDW coefficient of variation 13.0 11.5 - 14.1 % [facility] Mean Platelet Volume 11.3 7.6 - 12.9 fL [facility] NRBC% auto 0.0 % [facility] NRBC Absolute 0.000 0.000 - 0.000 x10(3)/mc L [facility] Blood specimen (specimen) 06/18/2018 8:30 AM EST 06/18/2018 8:37 AM EST Narrative Resulting Agency Comment Spec In Lab Anuradha Hicks MD HEMATOLOGY ORDERABLE S [facility] [place] [place] [address] * (ABNORMAL) Creatinine (06/18/2018 8:30 AM EST) Creatinine 0.65(L) 0.70 - 1.20 mg/dL [facility] Est Glomerular Filtration Rate 124 >=60 mL/min/1.7 3 m?? [facility] Comment: The eGFR was calculated using the CKD-EPI equation. As with all creatinine based estimates of kidney function, eGFR values calculated with the CKD-EPI equation are not accurate in patients with acute kidney failure, extremes of body mass or the acutely ill. [email or web address] eGFR 144 >=60 mL/min/1.7 3 m?? [facility] Comment: The eGFR was calculated using the CKD-EPI equation. As with all creatinine based estimates of kidney function, eGFR values calculated with the CKD-EPI equation are not accurate in patients with acute kidney failure, extremes of body mass or the acutely ill. [email or web address] Blood specimen (specimen) 06/18/2018 8:30 AM EST 06/18/2018 8:37 AM EST Narrative Resulting Agency Comment Spec In Lab Severo Drake MD CHEMISTRY ORDERAB LES [facility] [place] [address] * Aspartate Aminotransferase (06/18/2018 8:30 AM EST) Pathologist [facility] Aspartate Aminotransferase 16 0 - 30 unit/L [facility] Blood specimen (specimen) 06/18/2018 8:30 AM EST 06/18/2018 8:37 AM EST Narrative Resulting Agency Comment Spec In Lab E Almaz Drake MD CHEMISTRY ORDERAB LES Performing Organization Address [facility]/[place] Co de Phone Number [facility] [place] [address] * (ABNORMAL) Differential, Automated (06/18/2018 2:30 AM EST) Pathologist [facility] Neutrophil % 75.7 % [facility] Neutrophil Absolute 10.03(H) 1.70 - 6.10 x10(3)/mc L [facility] Lymph % 16.7 % [facility] Lymphocytes Abs 2.2 0.9 - 3.2 x10(3)/mc L [facility] Monocyte % 5.4 % [facility] Monocyte Abs 0.7 0.3 - 0.9 x10(3)/mc L [facility] Eos % 1.3 % [facility] Eosinophils Abs 0.2 0.0 - 0.4 x10(3)/mc L [facility] Basophil % 0.3 % [facility] Baso Absolute 0.0 0.0 - 0.1 x10(3)/mc L [facility] Immature Gran % 0.60 % [facility] Comment: Immature granulocytes(IG's)percentage and absolute count will include metamyelocytes, myelocytes, and promyelocytes. Blood smears from CBCs yielding IG's will be scanned manually for concordance. If this scan disagrees with the automated IG or if promyelocytes are noted, a manual differential will be performed. Immature Gran Absolute 0.08(H) 0.00 - 0.04 x10(3)/mc L [facility] Blood specimen (specimen) 06/18/2018 2:30 AM EST 06/18/2018 2:39 AM EST Narrative Resulting Agency Comment Spec In Lab Scooter Canales MD HEMATOLOGY ORDERABLE S Performing Organization Address City/State/[place] Co de Phone Number [facility] [place] [address] * (ABNORMAL) Hemogram (06/18/2018 2:30 AM EST) White Blood Cell 13.2(H) 4.0 - 9.5 x10(3)/ L [facility] Red Blood Cell 4.13 4.00 - 5.21 x10(6)/[facility] Hemoglobin 12.7 11.7 - 15.5 gm/dL [facility] Hematocrit 35.9 35.7 - 45.8 % [facility] Mean Cell Volume 86.9 82.6 - 94.4 fL [facility] Mean Cell Hemoglobin 30.8 27.1 - 32.0 pg [facility] Mean Cell Hemoglobin Concentration 35.4(H) 31.7 - 35.0 gm/dL [facility] Platelet 210 145 - 357 x10(3)/[facility] LAB[facility]ATORY RDW Standard Deviation 40.7 37.0 - 46.0 [facility] RDW coefficient of variation 12.9 11.5 - 14.1 % [facility] Mean Platelet Volume 11.4 7.6 - 12.9 [facility] NRBC% auto 0.0 % [facility] NRBC Absolute 0.000 0.000 - 0.000 x10(3)/ L [facility] Blood specimen (specimen) 06/18/2018 2:30 AM EST 06/18/2018 2:39 AM EST Narrative Resulting Agency Comment Spec In Lab Scooter Canales MD HEMATOLOGY ORDERABLE S Performing Organization Address [facility]/[place] Co de Phone Number [facility] [place] [place] [address] * (ABNORMAL) Creatinine (06/18/2018 2:30 AM EST) Creatinine 0.60(L) 0.70 - 1.20 mg/dL [facility] Est Glomerular Filtration Rate 128 >=60 mL/min/1.7 3 m?? [facility] Comment: The eGFR was calculated using the CKD-EPI equation. As with all creatinine based estimates of kidney function, eGFR values calculated with the CKD-EPI equation are not accurate in patients with acute kidney failure, extremes of body mass or the acutely ill. [email or web address] eGFR 148 >=60 mL/min/1.7 3 m?? [facility] Comment: The eGFR was calculated using the CKD-EPI equation. As with all creatinine based estimates of kidney function, eGFR values calculated with the CKD-EPI equation are not accurate in patients with acute kidney failure, extremes of body mass or the acutely ill. [email or web address] Blood specimen (specimen) 06/18/2018 2:30 AM EST 06/18/2018 2:39 AM EST Narrative Resulting Agency Comment Spec In Lab E Almaz Drake MD CHEMISTRY ORDERAB LES Performing Organization Address [facility]/ZIP Co de Phone Number [facility] [place] [place] [address] * Aspartate Aminotransferase (06/18/2018 2:30 AM EST) Aspartate Aminotransferase 16 0 - 30 unit/L [facility] Blood specimen (specimen) 06/18/2018 2:30 AM EST 06/18/2018 2:39 AM EST Narrative Resulting Agency Comment Spec In Lab E Almaz Drake MD CHEMISTRY ORDERAB LES [facility] [place] [place] [address] * Aspartate Aminotransferase (06/17/2018 8:00 PM EST) Pathologist [facility] Aspartate Aminotransferase 17 0 - 30 unit/L [facility] Blood specimen (specimen) 06/17/2018 8:00 PM EST 06/17/2018 8:08 PM EST Narrative Resulting Agency Comment Spec In Lab E Almaz Drake MD CHEMISTRY ORDERAB LES Performing Organization Address [facility]/[place] Co de Phone Number [facility] [place] [address] * (ABNORMAL) Differential, Automated (06/17/2018 6:55 PM EST) Pathologist [facility] Neutrophil % 76.7 % [facility] Neutrophil Absolute 9.62(H) 1.70 - 6.10 x10(3)/mc L [facility] Lymph % 16.0 % [facility] Lymphocytes Abs 2.0 0.9 - 3.2 x10(3)/mc L [facility] Monocyte % 5.0 % [facility] Monocyte Abs 0.6 0.3 - 0.9 x10(3)/mc L [facility] Eos % 1.0 % [facility] Eosinophils Abs 0.1 0.0 - 0.4 x10(3)/mc L [facility] Basophil % 0.5 % [facility] Baso Absolute 0.1 0.0 - 0.1 x10(3)/mc L [facility] Immature Gran % 0.80 % [facility] Comment: Immature granulocytes(IG's)percentage and absolute count will include metamyelocytes, myelocytes, and promyelocytes. Blood smears from CBCs yielding IG's will be scanned manually for concordance. If this scan disagrees with the automated IG or if promyelocytes are noted, a manual differential will be performed. Immature Gran Absolute 0.10(H) 0.00 - 0.04 x10(3)/ L [facility] Blood specimen (specimen) 06/17/2018 6:55 PM EST 06/17/2018 7:00 PM EST Narrative Resulting Agency Comment Spec In Lab Michelle Narvaez MD HEMATOLOGY ORDERABLE S [facility] [place] [address] * (ABNORMAL) Hemogram (06/17/2018 6:55 PM EST) White Blood Cell 12.5(H) 4.0 - 9.5 x10(3)/ L [facility] Red Blood Cell 4.18 4.00 - 5.21 x10(6)/[facility] Hemoglobin 12.9 11.7 - 15.5 gm/dL [facility] Hematocrit 36.4 35.7 - 45.8 % [facility] Mean Cell Volume 87.1 82.6 - 94.4 fL [facility] Mean Cell Hemoglobin 30.9 27.1 - 32.0 pg [facility] Mean Cell Hemoglobin Concentration 35.4(H) 31.7 - 35.0 gm/dL [facility] Platelet 170 145 - 357 x10(3)/[facility] RDW Standard Deviation 40.7 37.0 - 46.0 [facility] RDW coefficient of variation 12.9 11.5 - 14.1 % [facility] Mean Platelet Volume 11.7 7.6 - 12.9 [facility] NRBC% auto 0.0 % [facility] NRBC Absolute 0.000 0.000 - 0.000 x10(3)/ L [facility] Blood specimen (specimen) 06/17/2018 6:55 PM EST 06/17/2018 7:00 PM EST Narrative Resulting Agency Comment Spec In Lab Michelle Narvaez MD HEMATOLOGY ORDERABLE S Performing Organization Address [facility]/[place] Co de Phone Number [facility] [place] [address] * (ABNORMAL) Creatinine (06/17/2018 6:55 PM EST) Creatinine 0.62(L) 0.70 - 1.20 mg/dL [facility] Est Glomerular Filtration Rate 126 >=60 mL/min/1.7 3 m?? [facility] Comment: The eGFR was calculated using the CKD-EPI equation. As with all creatinine based estimates of kidney function, eGFR values calculated with the CKD-EPI equation are not accurate in patients with acute kidney failure, extremes of body mass or the acutely ill. [email or web address] eGFR 146 >=60 mL/min/1.7 3 m?? [facility] Comment: The eGFR was calculated using the CKD-EPI equation. As with all creatinine based estimates of kidney function, eGFR values calculated with the CKD-EPI equation are not accurate in patients with acute kidney failure, extremes of body mass or the acutely ill. [email or web address] Blood specimen (specimen) 06/17/2018 6:55 PM EST 06/17/2018 7:00 PM EST Narrative Resulting Agency Comment Spec In Lab Severo Drake MD CHEMISTRY ORDERAB LES Performing Organization Address [facility]/ZIP Co de Phone Number [facility] [place] [address] * (ABNORMAL) Differential, Automated (06/17/2018 10:55 AM EST) Neutrophil % 79.9 % [facility] Neutrophil Absolute 9.49(H) 1.70 - 6.10 x10(3)/mc L [facility] Lymph % 14.3 % [facility] Lymphocytes Abs 1.7 0.9 - 3.2 x10(3)/[facility] Monocyte % 4.1 % [facility] Monocyte Abs 0.5 0.3 - 0.9 x10(3)/[facility] Eos % 0.8 % [facility] Eosinophils Abs 0.1 0.0 - 0.4 x10(3)/[facility] Basophil % 0.4 % [facility] Baso Absolute 0.0 0.0 - 0.1 x10(3)/[facility] Immature Gran % 0.50 % [facility] Comment: Immature granulocytes(IG's)percentage and absolute count will include metamyelocytes, myelocytes, and promyelocytes. Blood smears from CBCs yielding IG's will be scanned manually for concordance. If this scan disagrees with the automated IG or if promyelocytes are noted, a manual differential will be performed. Immature Gran Absolute 0.06(H) 0.00 - 0.04 x10(3)/[facility] Blood specimen (specimen) 06/17/2018 10:55 AM EST 06/17/2018 11:03 AM EST Narrative Resulting Agency Comment Spec In Lab Lashay Resendiz MD HEMATOLOGY ORDERABLE S Performing Organization Address City/State/[place] Co de Phone Number [facility] [place] [address] * (ABNORMAL) Hemogram (06/17/2018 10:55 AM EST) White Blood Cell 11.9(H) 4.0 - 9.5 x10(3)/[facility] Red Blood Cell 4.28 4.00 - 5.21 x10(6)/[facility] Hemoglobin 13.3 11.7 - 15.5 gm/dL [facility] Hematocrit 37.5 35.7 - 45.8 % [facility] Mean Cell Volume 87.6 82.6 - 94.4 fL [facility] Mean Cell Hemoglobin 31.1 27.1 - 32.0 pg [facility] Mean Cell Hemoglobin Concentration 35.5(H) 31.7 - 35.0 gm/dL [facility] Platelet 200 145 - 357 x10(3)/mc L [facility] RDW Standard Deviation 40.9 37.0 - 46.0 fL [facility] RDW coefficient of variation 12.7 11.5 - 14.1 % [facility] Mean Platelet Volume 11.2 7.6 - 12.9 fL [facility] NRBC% auto 0.0 % [facility] NRBC Absolute 0.000 0.000 - 0.000 x10(3)/mc L [facility] Blood specimen (specimen) 06/17/2018 10:55 AM EST 06/17/2018 11:03 AM EST Narrative Resulting Agency Comment Spec In Lab Lashay Resendiz MD HEMATOLOGY ORDERABLE S Performing Organization Address City/State/[place] Co de Phone Number [facility] [place] [phone] * (ABNORMAL) Creatinine (06/17/2018 10:55 AM EST) Creatinine 0.61(L) 0.70 - 1.20 mg/dL [facility] Est Glomerular Filtration Rate 127 >=60 mL/min/1.7 3 m?? [facility] Comment: The eGFR was calculated using the CKD-EPI equation. As with all creatinine based estimates of kidney function, eGFR values calculated with the CKD-EPI equation are not accurate in patients with acute kidney failure, extremes of body mass or the acutely ill. [email or web address] eGFR 147 >=60 mL/min/1.7 3 m?? [facility] Comment: The eGFR was calculated using the CKD-EPI equation. As with all creatinine based estimates of kidney function, eGFR values calculated with the CKD-EPI equation are not accurate in patients with acute kidney failure, extremes of body mass or the acutely ill. [email or web address] Blood specimen (specimen) 06/17/2018 10:55 AM EST 06/17/2018 11:03 AM EST Narrative Resulting Agency Comment Spec In Lab E Almaz Drake MD CHEMISTRY ORDERAB LES Performing Organization Address City/[facility]/ZIP Co de Phone Number [facility] [place] [address] * Aspartate Aminotransferase (06/17/2018 10:55 AM EST) Aspartate Aminotransferase 19 0 - 30 unit/L [facility] Blood specimen (specimen) 06/17/2018 10:55 AM EST 06/17/2018 11:03 AM EST Narrative Resulting Agency Comment Spec In Lab E Almaz Drake MD CHEMISTRY ORDERAB LES Performing Organization Address City/[facility]/[place] Co de Phone Number [facility] [place] [address] * (ABNORMAL) Differential, Automated (06/17/2018 4:45 AM EST) Neutrophil % 70.1 % [facility] Neutrophil Absolute 8.77(H) 1.70 - 6.10 x10(3)/mc L [facility] Lymph % 20.7 % [facility] Lymphocytes Abs 2.6 0.9 - 3.2 x10(3)/mc L [facility] Monocyte % 6.6 % [facility] Monocyte Abs 0.8 0.3 - 0.9 x10(3)/mc L [facility] Eos % 1.5 % [facility] Eosinophils Abs 0.2 0.0 - 0.4 x10(3)/mc L [facility] Basophil % 0.5 % [facility] Baso Absolute 0.1 0.0 - 0.1 x10(3)/mc L [facility] Immature Gran % 0.60 % [facility] Comment: Immature granulocytes(IG's)percentage and absolute count will include metamyelocytes, myelocytes, and promyelocytes. Blood smears from CBCs yielding IG's will be scanned manually for concordance. If this scan disagrees with the automated IG or if promyelocytes are noted, a manual differential will be performed. Immature Gran Absolute 0.07(H) 0.00 - 0.04 x10(3)/[facility] Blood specimen (specimen) 06/17/2018 4:45 AM EST 06/17/2018 4:50 AM EST Narrative Resulting Agency Comment Spec In Lab Scooter Canales MD HEMATOLOGY ORDERABLE S [facility] [place] [place] [address] * (ABNORMAL) Hemogram (06/17/2018 4:45 AM EST) White Blood Cell 12.5(H) 4.0 - 9.5 x10(3)/[facility] Red Blood Cell 4.36 4.00 - 5.21 x10(6)/[facility] Hemoglobin 13.4 11.7 - 15.5 gm/dL [facility] Hematocrit 38.1 35.7 - 45.8 % [facility] Mean Cell Volume 87.4 82.6 - 94.4 fL [facility] Mean Cell Hemoglobin 30.7 27.1 - 32.0 pg [facility] Mean Cell Hemoglobin Concentration 35.2(H) 31.7 - 35.0 gm/dL [facility] Platelet 191 145 - 357 x10(3)/[facility] RDW Standard Deviation 41.0 37.0 - 46.0 fL [facility] RDW coefficient of variation 12.7 11.5 - 14.1 % [facility] Mean Platelet Volume 11.2 7.6 - 12.9 fL [facility] NRBC% auto 0.0 % [facility] NRBC Absolute 0.000 0.000 - 0.000 x10(3)/mc L [facility] Blood specimen (specimen) 06/17/2018 4:45 AM EST 06/17/2018 4:50 AM EST Narrative Resulting Agency Comment Spec In Lab Scooter Canales MD HEMATOLOGY ORDERABLE S Performing Organization Address [facility]/[place] Co de Phone Number [facility] [place] [address] * (ABNORMAL) Creatinine (06/17/2018 4:45 AM EST) Creatinine 0.54(L) 0.70 - 1.20 mg/dL [facility] Est Glomerular Filtration Rate 132 >=60 mL/min/1.7 3 m?? [facility] Comment: The eGFR was calculated using the CKD-EPI equation. As with all creatinine based estimates of kidney function, eGFR values calculated with the CKD-EPI equation are not accurate in patients with acute kidney failure, extremes of body mass or the acutely ill. [email or web address] eGFR 153 >=60 mL/min/1.7 3 m?? [facility] Comment: The eGFR was calculated using the CKD-EPI equation. As with all creatinine based estimates of kidney function, eGFR values calculated with the CKD-EPI equation are not accurate in patients with acute kidney failure, extremes of body mass or the acutely ill. [email or web address] Blood specimen (specimen) 06/17/2018 4:45 AM EST 06/17/2018 4:50 AM EST Narrative Resulting Agency Comment Spec In Lab E Almaz Drake MD CHEMISTRY ORDERAB LES Performing Organization Address City/[facility]/ZIP Co de Phone Number [facility] [place] [address] * Aspartate Aminotransferase (06/17/2018 4:45 AM EST) Aspartate Aminotransferase 20 0 - 30 unit/L [facility] Blood specimen (specimen) 06/17/2018 4:45 AM EST 06/17/2018 4:50 AM EST Narrative Resulting Agency Comment Spec In Lab E Almaz Drake MD CHEMISTRY ORDERAB LES [facility] [place] [address] * (ABNORMAL) Differential, Automated (06/16/2018 4:30 AM EST) Neutrophil % 70.5 % [facility] Neutrophil Absolute 7.63(H) 1.70 - 6.10 x10(3)/mc L [facility] Lymph % 21.7 % [facility] Lymphocytes Abs 2.4 0.9 - 3.2 x10(3)/ L [facility] Monocyte % 5.6 % [facility] Monocyte Abs 0.6 0.3 - 0.9 x10(3)/ L [facility] Eos % 1.1 % [facility] Eosinophils Abs 0.1 0.0 - 0.4 x10(3)/ L [facility] Basophil % 0.5 % [facility] Baso Absolute 0.0 0.0 - 0.1 x10(3)/ L [facility] Immature Gran % 0.60 % [facility] Comment: Immature granulocytes(IG's)percentage and absolute count will include metamyelocytes, myelocytes, and promyelocytes. Blood smears from CBCs yielding IG's will be scanned manually for concordance. If this scan disagrees with the automated IG or if promyelocytes are noted, a manual differential will be performed. Immature Gran Absolute 0.06(H) 0.00 - 0.04 x10(3)/mc L [facility] Blood specimen (specimen) 06/16/2018 4:30 AM EST 06/16/2018 4:42 AM EST Narrative Resulting Agency Comment Spec In Lab Scooter Canales MD HEMATOLOGY ORDERABLE S Performing Organization Address City/[facility]/ZIP Co de Phone Number [facility] [place] [address] * (ABNORMAL) Hemogram (06/16/2018 4:30 AM EST) White Blood Cell 10.8(H) 4.0 - 9.5 x10(3)/mc L [facility] Red Blood Cell 4.22 4.00 - 5.21 x10(6)/mc L [facility] Hemoglobin 12.8 11.7 - 15.5 gm/dL [facility] Hematocrit 36.6 35.7 - 45.8 % [facility] Mean Cell Volume 86.7 82.6 - 94.4 fL [facility] Mean Cell Hemoglobin 30.3 27.1 - 32.0 pg [facility] Mean Cell Hemoglobin Concentration 35.0 31.7 - 35.0 gm/dL [facility] Platelet 202 145 - 357 x10(3)/mc L [facility] RDW Standard Deviation 40.3 37.0 - 46.0 fL [facility] RDW coefficient of variation 12.8 11.5 - 14.1 % [facility] Mean Platelet Volume 11.3 7.6 - 12.9 fL [facility] NRBC% auto 0.0 % [facility] NRBC Absolute 0.000 0.000 - 0.000 x10(3)/mc L [facility] Blood specimen (specimen) 06/16/2018 4:30 AM EST 06/16/2018 4:42 AM EST Narrative Resulting Agency Comment Spec In Lab Scooter Canales MD HEMATOLOGY ORDERABLE S [facility] [place] [address] * (ABNORMAL) Creatinine (06/16/2018 4:30 AM EST) Creatinine 0.51(L) 0.70 - 1.20 mg/dL [facility] Est Glomerular Filtration Rate 135 >=60 mL/min/1.7 3 m?? [facility] Comment: The eGFR was calculated using the CKD-EPI equation. As with all creatinine based estimates of kidney function, eGFR values calculated with the CKD-EPI equation are not accurate in patients with acute kidney failure, extremes of body mass or the acutely ill. [email or web address] eGFR 156 >=60 mL/min/1.7 3 m?? [facility] Comment: The eGFR was calculated using the CKD-EPI equation. As with all creatinine based estimates of kidney function, eGFR values calculated with the CKD-EPI equation are not accurate in patients with acute kidney failure, extremes of body mass or the acutely ill. [email or web address] Blood specimen (specimen) 06/16/2018 4:30 AM EST 06/16/2018 4:42 AM EST Narrative Resulting Agency Comment Spec In Lab E Almaz Drake MD CHEMISTRY ORDERAB LES Performing Organization Address [facility]/[place] Co de Phone Number [facility] [place] [address] * Aspartate Aminotransferase (06/16/2018 4:30 AM EST) Aspartate Aminotransferase 14 0 - 30 unit/L [facility] Blood specimen (specimen) 06/16/2018 4:30 AM EST 06/16/2018 4:42 AM EST Narrative Resulting Agency Comment Spec In Lab E Almaz Drake MD CHEMISTRY ORDERAB LES Performing Organization Address City/[facility]/ZIP Co de Phone Number [facility] [place] [address] * (ABNORMAL) Differential, Automated (06/15/2018 5:05 AM EST) Neutrophil % 71.6 % [facility] Neutrophil Absolute 7.76(H) 1.70 - 6.10 x10(3)/[facility] Lymph % 20.6 % [facility] Lymphocytes Abs 2.2 0.9 - 3.2 x10(3)/[facility] Monocyte % 5.6 % [facility] Monocyte Abs 0.6 0.3 - 0.9 x10(3)/[facility] Eos % 1.3 % [facility] Eosinophils Abs 0.1 0.0 - 0.4 x10(3)/[facility] Basophil % 0.3 % [facility] Baso Absolute 0.0 0.0 - 0.1 x10(3)/[facility] Immature Gran % 0.60 % [facility] Comment: Immature granulocytes(IG's)percentage and absolute count will include metamyelocytes, myelocytes, and promyelocytes. Blood smears from CBCs yielding IG's will be scanned manually for concordance. If this scan disagrees with the automated IG or if promyelocytes are noted, a manual differential will be performed. Immature Gran Absolute 0.07(H) 0.00 - 0.04 x10(3)/[facility] Blood specimen (specimen) 06/15/2018 5:05 AM EST 06/15/2018 5:17 AM EST Narrative Resulting Agency Comment Spec In Lab Scooter Canales MD HEMATOLOGY ORDERABLE S [facility] [place] [address] * (ABNORMAL) Hemogram (06/15/2018 5:05 AM EST) White Blood Cell 10.8(H) 4.0 - 9.5 x10(3)/[facility] Red Blood Cell 4.27 4.00 - 5.21 x10(6)/mc L [facility] Hemoglobin 12.9 11.7 - 15.5 gm/dL [facility] Hematocrit 37.2 35.7 - 45.8 % [facility] Mean Cell Volume 87.1 82.6 - 94.4 fL [facility] Mean Cell Hemoglobin 30.2 27.1 - 32.0 pg [facility] Mean Cell Hemoglobin Concentration 34.7 31.7 - 35.0 gm/dL [facility] Platelet 200 145 - 357 x10(3)/mc L [facility] RDW Standard Deviation 40.5 37.0 - 46.0 fL [facility] RDW coefficient of variation 12.9 11.5 - 14.1 % [facility] Mean Platelet Volume 11.2 7.6 - 12.9 fL [facility] NRBC% auto 0.0 % [facility] NRBC Absolute 0.000 0.000 - 0.000 x10(3)/mc L [facility] Blood specimen (specimen) 06/15/2018 5:05 AM EST 06/15/2018 5:17 AM EST Narrative Resulting Agency Comment Spec In Lab Scooter Canales MD HEMATOLOGY ORDERABLE S [facility] [place] [place] [address] * (ABNORMAL) Creatinine (06/15/2018 5:05 AM EST) Creatinine 0.55(L) 0.70 - 1.20 mg/dL [facility] Est Glomerular Filtration Rate 131 >=60 mL/min/1.7 3 m?? [facility] Comment: The eGFR was calculated using the CKD-EPI equation. As with all creatinine based estimates of kidney function, eGFR values calculated with the CKD-EPI equation are not accurate in patients with acute kidney failure, extremes of body mass or the acutely ill. [email or web address] eGFR 152 >=60 mL/min/1.7 3 m?? [facility] Comment: The eGFR was calculated using the CKD-EPI equation. As with all creatinine based estimates of kidney function, eGFR values calculated with the CKD-EPI equation are not accurate in patients with acute kidney failure, extremes of body mass or the acutely ill. [email or web address] Blood specimen (specimen) 06/15/2018 5:05 AM EST 06/15/2018 5:17 AM EST Narrative Resulting Agency Comment Spec In Lab E Almaz Drake MD CHEMISTRY ORDERAB LES Performing Organization Address City/[facility]/[place] Co de Phone Number [facility] [place] [phone] * Aspartate Aminotransferase (06/15/2018 5:05 AM EST) Aspartate Aminotransferase 16 0 - 30 unit/L [facility] Blood specimen (specimen) 06/15/2018 5:05 AM EST 06/15/2018 5:17 AM EST Narrative Resulting Agency Comment Spec In Lab E Almaz Drake MD CHEMISTRY ORDERAB LES Performing Organization Address [facility]/[place] Co de Phone Number [facility] [place] [address] * US OB Detailed Morphology (06/14/2018 11:35 AM EST) Anatomical Region Laterality Modality Pelvis, Abdomen Ultrasound 06/14/2018 11:0 5 AM EST Impressions 06/14/2018 12:11 PM EST 2nd Trimester - Detailed Morphology - Summary Single intrauterine with a gestational age of 25w 6d based on early ultrasound dating. Composite age based on the current ultrasound alone is 23w 1d. Current growth parameters are NOT consistent with prior dating suggesting intrauterine growth restriction. Amniotic fluid volume is normal. Umbilical artery dopplers were preformed due to growth at the 6th percentile. UA dopplers demonstrated persistently absent end diastolic flow. Detailed anatomic evaluation was performed and no structural abnormalities are noted ?Severo Drake MD Electronically Signed Corrected Final Report ??06/14/2018 12:28 pm Narrative 06/14/2018 12:11 PM EST OBSTETRICS REPORT ? (Corrected Final 06/14/2018 12:28 ?pm) PATIENT INFO: ID #: ? [id number] ?: ??[birth year] (22 yrs) Name: ? SHAWN LISA ?Visit Date: 06/14/2018 11:05 am PERFORMED BY: Performed By: ? Sri Montes RDMS Attending: ?Severo Drake MD ??Almaz Referred By: ?TOBIAS RUIZ MD Location: ? [place] SERVICE(S) PROVIDED: ??[facility] - Detailed Morphology - [id number] ? [id number] ??[facility] - Umbilical Artery Doppler - [id number] ?[id number] INDICATIONS: ??25 weeks gestation of ?Z3A.25 ??Preeclampsia with severe features at 25w OB HISTORY: Blood ?Height: ??5'4 ?Weight (lb): 164 ? BMI: ??28.15 Type: EVALUATION: Num Of Fetuses: ? 1 Heart ? 129 Rate(bpm): Cardiac Activity: ?? Observed, normal rhythm Presentation: ? Cephalic Placenta: ? Anterior P. Cord Insertion: ??Within Normal Limits Amniotic Fluid GABINO FV: ?Normal GABINO Sum(cm) ? Largest Pocket(cm) 9.44 ?2.64 RUQ(cm) ? RLQ(cm) ? LUQ(cm) ?LLQ(cm) 2.61 ?1.72 ?2.64 ? 2.47 --------- BIOMETRY: --------- BPD: ?59.0 ??mm ? G.Age: ?? 24w 1d ? 3 ??% HC: ?211.0 ??mm ? G.Age: ?? 23w 1d ? < 3 ??% AC: ?168.0 ??mm ? G.Age: ?? 21w 6d ? < 3 ??% FL: ? 41.0 ??mm ? G.Age: ?? 23w 2d ? < 3 ??% HUM: ?39.0 ??mm ? G.Age: ?? 23w 6d ? < 5 ??% CER: ?27.0 ??mm ? G.Age: ?? 24w 4d ?22 ??% NFT: ?2.81 ??mm NB: ? 5.79 ??mm CM: ?5.0 ??mm CI: ? 78.25 ??% ? 70 - 86 FL/HC: ? 19.4 ??% ? 18.6 - 20.4 HC/AC: ? 1.26 ?1.04 - 1.22 FL/BPD: ?69.5 ??% ? 71 - 87 FL/AC: ? 24.4 ??% ? 20 - 24 Est. FW: ? 519 ?? gm ? 1 lb 2 oz ? 6 ??% GESTATIONAL AGE: Clinical TYE: ??25w 6d ?TYE: ?? 09/21/18 U/S Today: ? 23w 1d ?TYE: ?? 10/10/18 Best: ?25w 6d ?? Det. By: ??Early ?TYE: ?? 09/21/18 ? Ultrasound ? (02/13/18) TARGETED ANATOMY: Central Nervous System Calvarium/Cranial V.: ??Within Normal Limits Intracranial Doris: ? Within Normal Limits Cavum: ? Within Normal Limits Parenchyma: ?Within Normal Limits Lateral Ventricles: ?Within Normal Limits Choroid Plexus: ?Within Normal Limits Cereb./Vermis: ? Within Normal Limits Cisterna Magna: ?Within Normal Limits Corpus Callosum: ? Within Normal Limits Midline Falx: ?Within Normal Limits Spine Cervical: ?Visualized Thoracic: ?Visualized Lumbar: ?Visualized Sacral: ?Visualized Shape/Curvature: ? Visualized Head/Neck Face: ?Within Normal Limits Lips: ?Within Normal Limits Ear Position/Size: ? Visualized Neck: ?Within Normal Limits Nuchal Fold: ? Within Normal Limits Nasal Bone: ?Present Profile: ? Visualized Orbits/Eyes: ? Visualized Mandible: ?Visualized Maxilla: ? Visualized Thorax Thoracic Contour: ?Within Normal Limits Lungs: ? Visualized 4 Chamber View: ?Within Normal Limits Cardiac Motion: ?Normal Rhythm Rt Outflow Tract: ?Visualized Lt Outflow Tract: ?Visualized Aortic Arch: ? Visualized Ductal Arch: ? Visualized SVC: ? Visualized Cardiac Alborn: ?Visualized Diaphragm: ? Visualized 3 Vessel View: ? Visualized IVC: ? Visualized Abdomen Ventral Wall: ?Visualized Cord Insertion: ?Visualized Situs: ? Normal Stomach: ? Visualized Liver: ? Visualized Lt Kidney: ? Visualized Rt Kidney: ? Visualized Bladder: ? Visualized Bowel: ? Visualized Extremities Lt Humerus: ?Within Nomal Limits Rt Humerus: ?Within Normal Limits Lt Forearm: ?Within Normal Limits Rt Forearm: ?Within Normal Limits Lt Hand: ? Within Normal Limits Rt Hand: ? Within Normal Limits Lt Femur: ?Within Normal Limits Rt Femur: ?Within Normal Limits Lt Lower Leg: ?Within Normal Limits Rt Lower Leg: ?Within Normal Limits Lt Foot: ? Visualized Rt Foot: ? Visualized Other Umbilical Cord: ?3 vessel cord DOPPLER - VESSELS: Umbilical Artery ??S/D ? %tile ? RI ?%tile ?ADFV ?RDFV 23.9 ?> 97.5 ?1.0 ?? > 97.5 ?Yes ?No CERVIX UTERUS ADNEXA: Left Ovary Not imaged Right Ovary Not visualized Procedure Note Severo Drake MD - 06/14/2018 OBSTETRICS REPORT (Corrected Final 06/14/2018 12:28 pm) PATIENT INFO: ID #: [id number] : [birth year] (22 yrs) Name: SHAWN LISA Visit Date: 06/14/2018 11:05 am PERFORMED BY: Performed By: Sri Montes RDMS Attending: Severo Drake MD Referred By: TOBIAS RUIZ MD Location: [place] SERVICE(S) PROVIDED: [facility] - Detailed Morphology - [id number] [facility] - Umbilical Artery Doppler - [id number] INDICATIONS: 25 weeks gestation of Z3A.25 Preeclampsia with severe features at 25w OB HISTORY: Blood Height: 5'4 Weight (lb): 164 BMI: 28.15 Type: EVALUATION: Num Of Fetuses: 1 Heart 129 Rate(bpm): Cardiac Activity: Observed, normal rhythm Presentation: Cephalic Placenta: Anterior P. Cord Insertion: Within Normal Limits Amniotic Fluid GABINO FV: Normal GABINO Sum(cm) Largest Pocket(cm) 9.44 2.64 RUQ(cm) RLQ(cm) LUQ(cm) LLQ(cm) 2.61 1.72 2.64 2.47 --------- BIOMETRY: --------- BPD: 59.0 mm G.Age: 24w 1d 3 % HC: 211.0 mm G.Age: 23w 1d < 3 % AC: 168.0 mm G.Age: 21w 6d < 3 % FL: 41.0 mm G.Age: 23w 2d < 3 % HUM: 39.0 mm G.Age: 23w 6d < 5 % CER: 27.0 mm G.Age: 24w 4d 22 % NFT: 2.81 mm NB: 5.79 mm CM: 5.0 mm CI: 78.25 % 70 - 86 FL/HC: 19.4 % 18.6 - 20.4 HC/AC: 1.26 1.04 - 1.22 FL/BPD: 69.5 % 71 - 87 FL/AC: 24.4 % 20 - 24 Est. FW: 519 gm 1 lb 2 oz 6 % GESTATIONAL AGE: Clinical TYE: 25w 6d TYE: 09/21/18 U/S Today: 23w 1d TYE: 10/10/18 Best: 25w 6d Det. By: Early TYE: 09/21/18 Ultrasound (02/13/18) TARGETED ANATOMY: Central Nervous System Calvarium/Cranial V.: Within Normal Limits Intracranial Doris: Within Normal Limits Cavum: Within Normal Limits Parenchyma: Within Normal Limits Lateral Ventricles: Within Normal Limits Choroid Plexus: Within Normal Limits Cereb./Vermis: Within Normal Limits Cisterna Magna: Within Normal Limits Corpus Callosum: Within Normal Limits Midline Falx: Within Normal Limits Spine Cervical: Visualized Thoracic: Visualized Lumbar: Visualized Sacral: Visualized Shape/Curvature: Visualized Head/Neck Face: Within Normal Limits Lips: Within Normal Limits Ear Position/Size: Visualized Neck: Within Normal Limits Nuchal Fold: Within Normal Limits Nasal Bone: Present Profile: Visualized Orbits/Eyes: Visualized Mandible: Visualized Maxilla: Visualized Thorax Thoracic Contour: Within Normal Limits Lungs: Visualized 4 Chamber View: Within Normal Limits Cardiac Motion: Normal Rhythm Rt Outflow Tract: Visualized Lt Outflow Tract: Visualized Aortic Arch: Visualized Ductal Arch: Visualized SVC: Visualized Cardiac Alborn: Visualized Diaphragm: Visualized 3 Vessel View: Visualized IVC: Visualized Abdomen Ventral Wall: Visualized Cord Insertion: Visualized Situs: Normal Stomach: Visualized Liver: Visualized Lt Kidney: Visualized Rt Kidney: Visualized Bladder: Visualized Bowel: Visualized Extremities Lt Humerus: Within Nomal Limits Rt Humerus: Within Normal Limits Lt Forearm: Within Normal Limits Rt Forearm: Within Normal Limits Lt Hand: Within Normal Limits Rt Hand: Within Normal Limits Lt Femur: Within Normal Limits Rt Femur: Within Normal Limits Lt Lower Leg: Within Normal Limits Rt Lower Leg: Within Normal Limits Lt Foot: Visualized Rt Foot: Visualized Other Umbilical Cord: 3 vessel cord DOPPLER - VESSELS: Umbilical Artery S/D %tile RI %tile ADFV RDFV 23.9 > 97.5 1.0 > 97.5 Yes No CERVIX UTERUS ADNEXA: Left Ovary Not imaged Right Ovary Not visualized IMPRESSION 2nd Trimester - Detailed Morphology - Summary Single intrauterine with a gestational age of 25w 6d based on early ultrasound dating. Composite age based on the current ultrasound alone is 23w 1d. Current growth parameters are NOT consistent with prior dating suggesting intrauterine growth restriction. Amniotic fluid volume is normal. Umbilical artery dopplers were preformed due to growth at the 6th percentile. UA dopplers demonstrated persistently absent end diastolic flow. Detailed anatomic evaluation was performed and no structural abnormalities are noted Severo Drake MD Electronically Signed Corrected Final Report 06/14/2018 12:28 pm E Almaz Drake MD IMG US OB ORDERAB LES * (ABNORMAL) Differential, Automated (06/14/2018 2:55 AM EST) Neutrophil % 73.0 % [facility] Neutrophil Absolute 8.59(H) 1.70 - 6.10 x10(3)/mc L [facility] Lymph % 17.9 % [facility] Lymphocytes Abs 2.1 0.9 - 3.2 x10(3)/mc L [facility] Monocyte % 6.6 % [facility] Monocyte Abs 0.8 0.3 - 0.9 x10(3)/mc L [facility] Eos % 1.4 % [facility] Eosinophils Abs 0.2 0.0 - 0.4 x10(3)/mc L [facility] Basophil % 0.5 % [facility] Baso Absolute 0.1 0.0 - 0.1 x10(3)/[facility] Immature Gran % 0.60 % [facility] Comment: Immature granulocytes(IG's)percentage and absolute count will include metamyelocytes, myelocytes, and promyelocytes. Blood smears from CBCs yielding IG's will be scanned manually for concordance. If this scan disagrees with the automated IG or if promyelocytes are noted, a manual differential will be performed. Immature Gran Absolute 0.07(H) 0.00 - 0.04 x10(3)/[facility] LAB[facility]ORY Blood specimen (specimen) 06/14/2018 2:55 AM EST 06/14/2018 2:59 AM EST Narrative Resulting Agency Comment Spec In Lab Niraj Lewis MD HEMATOLOGY ORDERAB LES Performing Organization Address City/State/[place] Co de Phone Number [facility] [place] [address] * (ABNORMAL) Hemogram (06/14/2018 2:55 AM EST) White Blood Cell 11.8(H) 4.0 - 9.5 x10(3)/[facility] Red Blood Cell 4.68 4.00 - 5.21 x10(6)/ L [facility] Hemoglobin 14.4 11.7 - 15.5 gm/dL [facility] Hematocrit 40.2 35.7 - 45.8 % [facility] Mean Cell Volume 85.9 82.6 - 94.4 fL [facility] Mean Cell Hemoglobin 30.8 27.1 - 32.0 pg [facility] Mean Cell Hemoglobin Concentration 35.8(H) 31.7 - 35.0 gm/dL [facility] Platelet 193 145 - 357 x10(3)/ L [facility] RDW Standard Deviation 39.9 37.0 - 46.0 fL [facility] RDW coefficient of variation 12.8 11.5 - 14.1 % [facility] Mean Platelet Volume 10.9 7.6 - 12.9 fL [facility] NRBC% auto 0.0 % [facility] NRBC Absolute 0.000 0.000 - 0.000 x10(3)/mc L [facility] Blood specimen (specimen) 06/14/2018 2:55 AM EST 06/14/2018 2:59 AM EST Narrative Resulting Agency Comment Spec In Lab Niraj Lewis MD HEMATOLOGY ORDERAB LES [facility] [place] [address] * (ABNORMAL) Creatinine (06/14/2018 2:55 AM EST) Creatinine 0.50(L) 0.70 - 1.20 mg/dL [facility] Est Glomerular Filtration Rate 135 >=60 mL/min/1.7 3 m?? [facility] Comment: The eGFR was calculated using the CKD-EPI equation. As with all creatinine based estimates of kidney function, eGFR values calculated with the CKD-EPI equation are not accurate in patients with acute kidney failure, extremes of body mass or the acutely ill. [email or web address] eGFR 157 >=60 mL/min/1.7 3 m?? [facility] Comment: The eGFR was calculated using the CKD-EPI equation. As with all creatinine based estimates of kidney function, eGFR values calculated with the CKD-EPI equation are not accurate in patients with acute kidney failure, extremes of body mass or the acutely ill. [email or web address] Blood specimen (specimen) 06/14/2018 2:55 AM EST 06/14/2018 2:59 AM EST Narrative Resulting Agency Comment Spec In Lab Severo Drake MD CHEMISTRY ORDERAB LES [facility] [place] [address] * Aspartate Aminotransferase (06/14/2018 2:55 AM EST) Pathologist [facility] Aspartate Aminotransferase 14 0 - 30 unit/L [facility] Blood specimen (specimen) 06/14/2018 2:55 AM EST 06/14/2018 2:59 AM EST Narrative Resulting Agency Comment Spec In Lab E Almaz Drake MD CHEMISTRY ORDERAB LES Performing Organization Address [facility]/ZIP Co de Phone Number [facility] [place] [address] * (ABNORMAL) Differential, Automated (06/13/2018 8:50 PM EST) Pathologist [facility] Neutrophil % 76.9 % [facility] Neutrophil Absolute 10.93(H) 1.70 - 6.10 x10(3)/mc L [facility] Lymph % 15.8 % [facility] Lymphocytes Abs 2.2 0.9 - 3.2 x10(3)/mc L [facility] Monocyte % 5.1 % [facility] Monocyte Abs 0.7 0.3 - 0.9 x10(3)/mc L [facility] Eos % 1.0 % [facility] Eosinophils Abs 0.1 0.0 - 0.4 x10(3)/mc L [facility] LABORATORY Basophil % 0.4 % [facility] Baso Absolute 0.1 0.0 - 0.1 x10(3)/mc L [facility] Immature Gran % 0.80 % [facility] Comment: Immature granulocytes(IG's)percentage and absolute count will include metamyelocytes, myelocytes, and promyelocytes. Blood smears from CBCs yielding IG's will be scanned manually for concordance. If this scan disagrees with the automated IG or if promyelocytes are noted, a manual differential will be performed. Immature Gran Absolute 0.11(H) 0.00 - 0.04 x10(3)/ L [facility] Blood specimen (specimen) 06/13/2018 8:50 PM EST 06/13/2018 8:59 PM EST Narrative Resulting Agency Comment Spec In Lab Niraj Lewis MD HEMATOLOGY ORDERAB LES Performing Organization Address City/State/[place] Co de Phone Number [facility] [place] [address] * (ABNORMAL) Hemogram (06/13/2018 8:50 PM EST) White Blood Cell 14.2(H) 4.0 - 9.5 x10(3)/ L [facility] Red Blood Cell 4.44 4.00 - 5.21 x10(6)/[facility] LABORATORY Hemoglobin 13.4 11.7 - 15.5 gm/dL [facility] Hematocrit 38.5 35.7 - 45.8 % [facility] Mean Cell Volume 86.7 82.6 - 94.4 fL [facility] Mean Cell Hemoglobin 30.2 27.1 - 32.0 pg [facility] Mean Cell Hemoglobin Concentration 34.8 31.7 - 35.0 gm/dL [facility] Platelet 209 145 - 357 x10(3)/[facility] LABORATORY RDW Standard Deviation 40.2 37.0 - 46.0 [facility] LABORATORY RDW coefficient of variation 12.8 11.5 - 14.1 % [facility] Mean Platelet Volume 11.1 7.6 - 12.9 [facility] LABORATORY NRBC% auto 0.0 % [facility] NRBC Absolute 0.000 0.000 - 0.000 x10(3)/ L [facility] Blood specimen (specimen) 06/13/2018 8:50 PM EST 06/13/2018 8:59 PM EST Narrative Resulting Agency Comment Spec In Lab Niraj Lewis MD HEMATOLOGY ORDERAB LES Performing Organization Address [facility]/[place] Co de Phone Number [facility] [place] [address] * (ABNORMAL) Creatinine (06/13/2018 8:50 PM EST) Creatinine 0.58(L) 0.70 - 1.20 mg/dL [facility] Est Glomerular Filtration Rate 129 >=60 mL/min/1.7 3 m?? [facility] Comment: The eGFR was calculated using the CKD-EPI equation. As with all creatinine based estimates of kidney function, eGFR values calculated with the CKD-EPI equation are not accurate in patients with acute kidney failure, extremes of body mass or the acutely ill. http://[facility] eGFR 150 >=60 mL/min/1.7 3 m?? [facility] Comment: The eGFR was calculated using the CKD-EPI equation. As with all creatinine based estimates of kidney function, eGFR values calculated with the CKD-EPI equation are not accurate in patients with acute kidney failure, extremes of body mass or the acutely ill. [email or web address]/[facility]nkf Blood specimen (specimen) 06/13/2018 8:50 PM EST 06/13/2018 8:59 PM EST Narrative Resulting Agency Comment Spec In Lab E Almaz Drake MD CHEMISTRY ORDERAB LES Performing Organization Address City/[facility]/ZIP Co de Phone Number [facility] [place] [address] * Aspartate Aminotransferase (06/13/2018 8:50 PM EST) Aspartate Aminotransferase 11 0 - 30 unit/L [facility] Blood specimen (specimen) 06/13/2018 8:50 PM EST 06/13/2018 8:59 PM EST Narrative Resulting Agency Comment Spec In Lab E Almaz Drake MD CHEMISTRY ORDERAB LES Performing Organization Address [facility]/ZIP Co de Phone Number [facility] [place] [address] * Group B Streptococcus Screen (06/13/2018 2:50 PM EST) GBS Screen Neg [facility] Pooled specimen from vaginal introitus and rectal swab (specimen) 06/13/2018 2:50 PM EST 06/13/2018 3:23 PM EST Comment:Penicillin Allergy?- >No Narrative Resulting Agency Comment Spec In Lab Scooter Canales MD MICROBIOLOGY - GENER AL ORDERABLES Performing Organization Address [facility]/[place] Co de Phone Number [facility] [place] [address] * Group B Strep Culture Screen (06/13/2018 2:50 PM EST) Group B Streptococcus Culture No Group B Streptococci isolated [facility] Pooled specimen from vaginal introitus and rectal swab (specimen) 06/13/2018 2:50 PM EST 06/13/2018 3:23 PM EST Comment:PENICILLIN ALLERGY?- >NO Narrative Resulting Agency Comment Spec In Lab E Almaz Drake MD MICROBIOLOGY - GE NERAL ORDERABLES Performing Organization Address [facility]/[place] Co de Phone Number [facility] [place] [address] * (ABNORMAL) Protein/Creatinine Ratio, urine (06/13/2018 2:49 PM EST) Creatinine, Urine 16 mg/dL [facility] Protein, Urine 154(H) 0 - 12 mg/dL [facility] Protein / Creatinine Ratio, Urine 9.6 ratio [facility] Urine specimen (specimen) 06/13/2018 2:49 PM EST 06/13/2018 3:22 PM EST Narrative Resulting Agency Comment Spec In Lab E Almaz Drake MD URINE ORDERABLES Performing Organization Address [facility]/[place] Co de Phone Number [facility] [place] [address] * (ABNORMAL) Creatinine (06/13/2018 2:47 PM EST) Creatinine 0.49(L) 0.70 - 1.20 mg/dL [facility] Est Glomerular Filtration Rate 136 >=60 mL/min/1.7 3 m?? [facility] Comment: The eGFR was calculated using the CKD-EPI equation. As with all creatinine based estimates of kidney function, eGFR values calculated with the CKD-EPI equation are not accurate in patients with acute kidney failure, extremes of body mass or the acutely ill. http://[facility] eGFR 158 >=60 mL/min/1.7 3 m?? [facility] Comment: The eGFR was calculated using the CKD-EPI equation. As with all creatinine based estimates of kidney function, eGFR values calculated with the CKD-EPI equation are not accurate in patients with acute kidney failure, extremes of body mass or the acutely ill. http://BECC/[facility]nkf Blood specimen (specimen) No Charge / Unknown 06/13/2018 2:47 PM EST 06/13/2018 3:00 PM EST Narrative Resulting Agency Comment Spec In Lab Niraj Lewis MD CHEMISTRY ORDERABL ES Performing Organization Address [facility]/[place] Co de Phone Number [facility] [place] [address] * Aspartate Aminotransferase (06/13/2018 2:47 PM EST) Aspartate Aminotransferase 14 0 - 30 unit/L [facility] Blood specimen (specimen) No Charge / Unknown 06/13/2018 2:47 PM EST 06/13/2018 3:00 PM EST Narrative Resulting Agency Comment Spec In Lab Niraj Lewis MD CHEMISTRY ORDERABL ES Performing Organization Address [facility]/State/ZIP Co de Phone Number [facility] [place] [address] * (ABNORMAL) Differential, Automated (06/13/2018 2:47 PM EST) Neutrophil % 76.0 % [facility] Neutrophil Absolute 8.43(H) 1.70 - 6.10 x10(3)/ L [facility] Lymph % 16.8 % [facility] Lymphocytes Abs 1.9 0.9 - 3.2 x10(3)/ L [facility] Monocyte % 5.0 % [facility] Monocyte Abs 0.6 0.3 - 0.9 x10(3)/[facility] LABORATORY Eos % 1.1 % [facility] Eosinophils Abs 0.1 0.0 - 0.4 x10(3)/[facility] LABORATORY Basophil % 0.5 % [facility] Baso Absolute 0.0 0.0 - 0.1 x10(3)/ L [facility] Immature Gran % 0.60 % [facility] Comment: Immature granulocytes(IG's)percentage and absolute count will include metamyelocytes, myelocytes, and promyelocytes. Blood smears from CBCs yielding IG's will be scanned manually for concordance. If this scan disagrees with the automated IG or if promyelocytes are noted, a manual differential will be performed. Immature Gran Absolute 0.07(H) 0.00 - 0.04 x10(3)/ L [facility] Blood specimen (specimen) No Charge / Unknown 06/13/2018 2:47 PM EST 06/13/2018 2:56 PM EST Narrative Resulting Agency Comment Spec In Lab Niraj Lewis MD HEMATOLOGY ORDERAB LES [facility] [place] [address] * (ABNORMAL) Hemogram (06/13/2018 2:47 PM EST) White Blood Cell 11.1(H) 4.0 - 9.5 x10(3)/[facility] LABORATORY Red Blood Cell 4.40 4.00 - 5.21 x10(6)/ L [facility] Hemoglobin 13.5 11.7 - 15.5 gm/dL [facility] Hematocrit 38.1 35.7 - 45.8 % [facility] Mean Cell Volume 86.6 82.6 - 94.4 fL [facility] Mean Cell Hemoglobin 30.7 27.1 - 32.0 pg [facility] Mean Cell Hemoglobin Concentration 35.4(H) 31.7 - 35.0 gm/dL [facility] Platelet 228 145 - 357 x10(3)/[facility] LABORATORY RDW Standard Deviation 40.5 37.0 - 46.0 [facility]AT[facility] RDW coefficient of variation 12.9 11.5 - 14.1 % [facility] Mean Platelet Volume 11.4 7.6 - 12.9 fL [facility] NRBC% auto 0.0 % [facility] NRBC Absolute 0.000 0.000 - 0.000 x10(3)/[facility] Blood specimen (specimen) No Charge / Unknown 06/13/2018 2:47 PM EST 06/13/2018 2:56 PM EST Narrative Resulting Agency Comment Spec In Lab Niraj Lewis MD HEMATOLOGY ORDERAB LES [facility] [place] [address] * Lavender Tube HOLD (06/13/2018 2:47 PM EST) Pathologist [facility] Lavender Hold Sample in lab. [facility] Blood specimen (specimen) No Charge / Unknown 06/13/2018 2:47 PM EST 06/13/2018 2:56 PM EST Niraj Lewis MD HEMATOLOGY ORDERAB LES Performing Organization Address [facility]/ZIP Co de Phone Number [facility] [place] [address] * Green Tube HOLD (06/13/2018 2:47 PM EST) Green Hold Sample in lab. [facility] Blood specimen (specimen) No Charge / Unknown 06/13/2018 2:47 PM EST 06/13/2018 2:55 PM EST Niraj Lewis MD CHEMISTRY ORDERABL ES Performing Organization Address [facility]/[place] Co de Phone Number [facility] [place] [address] * ABORH Recheck Status (06/13/2018 2:46 PM EST) ABORH Type Recheck Completed [facility] Blood specimen (specimen) 06/13/2018 2:46 PM EST 06/13/2018 2:50 PM EST Narrative Resulting Agency Comment Spec In Lab Niraj Lewis MD BLOOD BANK LAB ORD ERABLES Performing Organization Address [facility]/[place] Co de Phone Number [facility] [place] [address] * Antibody screen (06/13/2018 2:46 PM EST) Ab Screen Interp Negative [facility] Expires at [id number] on: 06/16/2018 [facility] Blood specimen (specimen) 06/13/2018 2:46 PM EST 06/13/2018 2:50 PM EST Narrative Resulting Agency Comment Spec In Lab Niraj Lewis MD BLOOD BANK LAB ORD ERABLES Performing Organization Address [facility]/ZIP Co de Phone Number [facility] [place] [address] * ABO/Rh Typing (06/13/2018 2:46 PM EST) ABORH Type A Pos [facility] Blood specimen (specimen) 06/13/2018 2:46 PM EST 06/13/2018 2:50 PM EST Narrative Resulting Agency Comment Spec In Lab Niraj Lewis MD BLOOD BANK LAB ORD ERABLES [facility] [place] [place] [address] documented in this encounter Visit Diagnoses Diagnosis Preeclampsia, severe, second trimester Hx of section X2 Other postprocedural status History of delivery with [place] at 28w [place] [facility] [place] pre[place] with severe features History of gestational hypertension in second , delivered [facility] at 37w4d documented in this encounter Admitting Diagnoses Diagnosis Preeclampsia, severe, second trimester documented in this encounter Administered Medications Inactive Administered Medications - up to 3 most recent administrations Medication Order MAR Action Action Date Dose Rate Site acetaminophen (TYLENOL) tablet 1,000 mg 1,000 mg, Oral, EVERY 8 HOURS PRN, Starting on Mon06/13/18 at 1813, Until Mon06/18/18 at 1308, Pain, Headaches, Maximum dose of acetaminophen is 4000 mg from all sources in 24 hours., Routine Given 06/18/2018 9:11 AM EST 1,000 mg Given 06/18/2018 12:40 AM EST 1,000 mg Given 06/17/2018 1:23 PM EST 1,000 mg acetaminophen (TYLENOL) tablet 650 mg 650 mg, Oral, EVERY 6 HOURS PRN, Starting on Mon06/18/18 at 1251, Until Holly 06/21/18 at 1230, Pain, - If ordered with other PRN pain medications give Ibuprofen first, then acetaminophen, then additional agents according to the pain scale. - Not to exceed 4g in 24 hours, Routine Given 06/21/2018 1:31 AM EST 650 mg Given 06/20/2018 8:14 PM EST 650 mg Given 06/20/2018 1:29 PM EST 650 mg docusate sodium (COLACE) capsule 100 mg 100 mg, Oral, 2 TIMES DAILY, First dose on Mon06/18/18 at 1315, Until Discontinued, Routine Given 06/21/2018 9:46 AM EST 100 mg Given 06/20/2018 8:13 PM EST 100 mg Given 06/20/2018 8:00 AM EST 100 mg glycerin-witch katlin (TUCKS) 12.5-50 % pads Topical (Top), 4 TIMES DAILY PRN, Irritation, perineal pain, Starting on Mon06/18/18 at 1251, Until Mon06/21/18 at 1230 hydrALAZINE (APRESOLINE) injection 10 mg 10 mg, Intravenous, ONCE, 1 dose, On Mon06/17/18 at 0530 Given 06/17/2018 5:17 AM EST 10 mg hydrALAZINE (APRESOLINE) injection 10 mg 10 mg, Intravenous, ONCE, 1 dose, On Mon06/18/18 at 0245, Recovery (Recovery-Hospital Unit) Given 06/18/2018 1:19 AM EST 10 mg hydrALAZINE (APRESOLINE) injection 5 mg 5 mg, Intravenous, ONCE, 1 dose, On Mon06/18/18 at 0045 Given 06/18/2018 12:37 AM EST 5 mg ibuprofen (ADVIL;MOTRIN) tablet 600 mg 600 mg, Oral, EVERY 6 HOURS, First dose on Mon06/19/18 at 1915, Until Discontinued, - Begin after ketorolac discontinued. , Routine Given 06/21/2018 9:38 AM EST 600 mg Given 06/21/2018 1:31 AM EST 600 mg Given 06/20/2018 8:13 PM EST 600 mg ketorolac (TORADOL) injection 15 mg 15 mg, Intravenous, EVERY 6 HOURS, 5 doses, First dose on Mon06/18/18 at 1315, Last dose on Mon06/19/18 at 1315, Routine Given 06/19/2018 1:31 PM EST 15 mg Given 06/19/2018 7:37 AM EST 15 mg Given 06/19/2018 12:59 AM EST 15 mg labetalol (NORMODYNE) tablet 400 mg 400 mg, Oral, 2 TIMES DAILY, First dose (after last modification) on Mon06/19/18 at 0900, Until Discontinued, Hold for SBP < 100 mm Hg, DBP < 60 mm Hg, HR < 60 bpm, Routine Given 06/19/2018 9:[address] 400 mg labetalol (NORMODYNE) tablet 600 mg 600 mg, Oral, 2 TIMES DAILY, First dose on Mon06/13/18 at 1500, Until Discontinued, Routine Given 06/16/2018 8:50 PM EST 600 mg Given 06/16/2018 8:39 AM EST 600 mg Given 06/15/2018 8:07 PM EST 600 mg labetalol (NORMODYNE) tablet 600 mg 600 mg, Oral, 3 TIMES DAILY, First dose (after last modification) on Mon06/17/18 at 0900, Until Discontinued, Routine Given 06/18/2018 8:18 AM EST 600 mg Given 06/17/2018 8:38 PM EST 600 mg Given 06/17/2018 3:19 PM EST 600 mg labetalol (NORMODYNE,TRANDATE) injection 20 mg 20 mg, Intravenous, ONCE, 1 dose, On Mon06/13/18 at 1415, STAT Given 06/13/2018 2:10 PM EST 20 mg lactated Ringers infusion 25 mL/hr, Intravenous, CONTINUOUS, Starting on Mon06/13/18 at 1415, Until [facility] 06/21/18 at 1230 New Bag 06/18/2018 12:58 PM EST 25 mL/hr 25 mL/hr New Bag 06/18/2018 11:32 AM EST New Bag 06/18/2018 10:18 AM EST 25 mL/hr 25 mL/hr magnesium sulfate 20 g/500 mL infusion 2 g/hr (50 mL/hr), Intravenous, CONTINUOUS, Starting on Mon06/17/18 at 0530, Until Mon06/17/18 at 0806, Routine New Bag 06/17/2018 5:27 AM EST 2 g/hr 50 mL/hr magnesium sulfate 20 g/500 mL infusion 2 g/hr (50 mL/hr), Intravenous, CONTINUOUS, Starting on Mon06/13/18 at 1415, Until [facility] 06/21/18 at 1230, Routine New Bag 06/19/2018 5:20 AM EST 2 g/hr 50 mL/hr New Bag 06/18/2018 8:13 PM EST 2 g/hr 50 mL/hr New Bag 06/18/2018 10:15 AM EST 2 g/hr 50 mL/hr magnesium sulfate Bolus from bag 4 g 4 g, Intravenous, ONCE, 1 dose, On Mon06/17/18 at 0530, Administer over 20 minutes., Routine Bolus from Bag 06/17/2018 5:32 AM EST 4 g NIFEdipine (ADALAT CC) CR tablet 30 mg 30 mg, Oral, DAILY, First dose on Mon06/13/18 at 1500, Until Discontinued, DO NOT CRUSH OR OPEN, Routine Given 06/13/2018 3:43 PM EST 30 mg ondansetron (ZOFRAN) injection 4 mg 4 mg, Intravenous, EVERY 8 HOURS PRN, Starting on Mon06/13/18 at 1352, Until Mon06/21/18 at 1230, Nausea, Vomiting, May repeat in 30 minutes if inefffective Given 06/18/2018 4:42 PM EST 4 mg oxyCODONE (ROXICODONE) immediate release tablet 5-10 mg 5-10 mg, Oral, EVERY 4 HOURS PRN, Starting on Mon06/18/18 at 1251, Until Mon06/21/18 at 1230, Pain, Severe pain (7-10), - Initial dose 5 mg. - If pain control not adequate in 60 minutes, give additional 5 mg., Routine vitamin 27 & [id number] 60 mg iron-1 mg tablet Tab 1 tablet 1 tablet, Oral, DAILY, First dose on Mon06/13/18 at 1415, Until Discontinued, Routine Given 06/21/2018 9:46 AM EST 1 tablet Given 06/20/2018 8:00 AM EST 1 tablet Given 06/19/2018 9:08 AM EST 1 tablet prochlorperazine (COMPAZINE) injection 10 mg 10 mg, Intravenous, EVERY 6 HOURS PRN, Starting on Mon06/14/18 at 0236, Until Mon06/21/18 at 1230, Nausea, headache, Routine Given 06/17/2018 10:44 AM EST 10 mg Given 06/14/2018 3:06 AM EST 10 mg simethicone (MYLICON) chewable tablet 80 mg 80 mg, Oral, 4 TIMES DAILY PRN, Starting on Mon06/18/18 at 1251, Until Mon06/21/18 at 1230, Cramping, gas pain, Routine Given 06/19/2018 1:11 PM EST 80 mg sodium chloride 0.9 % flush 5 mL 5 mL, Intravenous, 2 TIMES DAILY, First dose on Mon06/13/18 at 1415, Until Discontinued, Routine Given 06/20/2018 8:00 AM EST 5 mLs Given 06/19/2018 7:57 PM EST 5 mLs Given 06/19/2018 9:08 AM EST 5 mLs documented in this encounter Active and Recently Administered Medications Times are shown in EST. Scheduled Medication Order 06/19/2018 06/20/2018 06/21/2018 docusate sodium (COLACE) capsule 100 mg 100 mg, Oral, 2 TIMES DAILY, First dose on Mon06/18/18 at 1315, Until Discontinued, Routine 0908 (Given - Provider: Mary Ann Bonilla RN)1954 (Given - Provider: Georgia Fish RN)2100 (Not Given - Provider: Georgia Fihs RN - Reason: See comment - Comment: see previous administration) 0800 (Given - Provider: Haily Peraza RN)2012 (Given - Provider: Ramya Ambrose RN) 0946 (Given - Provider: Cheyenne Addison RN) ibuprofen (ADVIL;MOTRIN) tablet 600 mg(Linked Group 1) 600 mg, Oral, EVERY 6 HOURS, First dose on Mon06/19/18 at 1915, Until Discontinued, - Begin after ketorolac discontinued. , Routine 1953 (Given - Provider: Georgia Fish RN) 0116 (Given - Provider: Georgia Fish RN)0742 (Given - Provider: Georgia Fish RN)1329 (Given - Provider: Haily Peraza, ULYSSES)2012 (Given - Provider: Ramya Ambrose, ULYSSES) 0131 (Given - Provider: Ramya Ambrose RN)0938 (Given - Provider: Cheyenne Addison RN) ketorolac (TORADOL) injection 15 mg (COMPLETED)(Linked Group 1) 15 mg, Intravenous, EVERY 6 HOURS, 5 doses, First dose on Mon06/18/18 at 1315, Last dose on Mon06/19/18 at 1315, Routine 0059 (Given - Provider: Macey Ragsdale RN)0737 (Given - Provider: Mary Ann Bonilla RN)1331 (Given - Provider: Mary Ann Bonilla RN) labetalol (NORMODYNE) tablet 400 mg (CANCELED) 400 mg, Oral, 2 TIMES DAILY, First dose (after last modification) on Mon06/19/18 at 0900, Until Discontinued, Hold for SBP < 100 mm Hg, DBP < 60 mm Hg, HR < 60 bpm, Routine 0908 (Given - Provider: Mary Ann Bonilla RN) vitamin 27 & fakamge-lpyd-MG 60 mg iron-1 mg tablet Tab 1 tablet 1 tablet, Oral, DAILY, First dose on Mon06/13/18 at 1415, Until Discontinued, Routine 0908 (Given - Provider: Mary Ann Bonilla RN) 0800 (Given - Provider: Haily Peraza RN) 0946 (Given - Provider: Cheyenne Addison RN) sodium chloride 0.9 % flush 5 mL 5 mL, Intravenous, 2 TIMES DAILY, First dose on Mon06/13/18 at 1415, Until Discontinued, Routine 0908 (Given - Provider: Mary Ann Bonilla RN)1957 (Given - Provider: Georgia Fish RN)2100 (Not Given - Provider: Georgia Fish RN - Reason: See comment - Comment: previously given) 0800 (Given - Provider: Haily Peraza RN)2100 (Not Given - Provider: Ramya Ambrose RN - Reason: Loss of access) 0900 (Due) Continuous Medication Order 06/19/2018 06/20/2018 06/21/2018 lactated Ringers infusion 25 mL/hr, Intravenous, CONTINUOUS, Starting on Mon06/13/18 at 1415, Until Holly 06/21/18 at 1230 1118 (Stopped - Provider: Mary Ann Bonilla RN) magnesium sulfate 20 g/500 mL infusion 2 g/hr (50 mL/hr), Intravenous, CONTINUOUS, Starting on Mon06/13/18 at 1415, Until [place] 06/21/18 at 1230, Routine 0520 (New Bag - Provider: Macey Ragsdale RN)1118 (Stopped - Provider: Mary Ann Bonilla, ULYSSES) PRN Medication Order 06/19/2018 06/20/2018 06/21/2018 acetaminophen (TYLENOL) tablet 650 mg 650 mg, Oral, EVERY 6 HOURS PRN, Starting on Mon06/18/18 at 1251, Until Holly 06/21/18 at 1230, Pain, - If ordered with other PRN pain medications give Ibuprofen first, then acetaminophen, then additional agents according to the pain scale. - Not to exceed 4g in 24 hours, Routine 0515 (Given - Provider: Macey Ragsdale, ULYSSES)1117 (Given - Provider: Mary Ann Bonilla, ULYSSES)1804 (Given - Provider: Mary Ann Bonilla RN) 0116 (Given - Provider: Georgia Fish, RN)0742 (Given - Provider: Georgia Fish, RN)1329 (Given - Provider: Haily Peraza, ULYSSES)2013 (Given - Provider: Ramya Ambrose, ULYSSES) 013 (Given - Provider: Ramya Ambrose, ULYSSES) calcium carbonate (TUMS) chewable tablet 1,000 mg 1,000 mg (2 tablet), Oral, EVERY 4 HOURS PRN, Starting on Mon06/13/18 at 1352, Until Holly 06/21/18 at 1230, Heartburn, If both calcium carbonate (TUMS) and alum-mag hydroxide-simeth (MAALOX) ordered, administer calcium carbonate (TUMS) first, if ineffective administer alum-mag hydroxide-simeth (MAALOX)., Routine diphenhydrAMINE (BENADRYL) capsule 25 mg 25 mg, Oral, NIGHTLY PRN, Starting on Mon06/13/18 at 1352, Until Holly 06/21/18 at 1230, Itching, to promote drowsiness, Routine docusate sodium (COLACE) capsule 100 mg 100 mg, Oral, 2 TIMES DAILY PRN, Starting on Mon06/13/18 at 1352, Until Holly 06/21/18 at 1230, Constipation, If multiple PRN bowel medications ordered, start with ducusate, then magnesium citrate. Multiple medications may be given concomitantly for constipation., Routine glycerin-witch katlin (TUCKS) 12.5-50 % pads Topical (Top), 4 TIMES DAILY PRN, Irritation, perineal pain, Starting on Mon06/18/18 at 1251, Until Holly 06/21/18 at 1230 lidocaine (XYLOCAINE) 10 mg/mL (1 %) injection 3 mg 3 mg (0.3 mL), Subcutaneous, ONCE PRN, 1 dose, Starting on Mon06/13/18 at 1352, Until Holly 06/21/18 at 1230, for discomfort with PIV insertion, Routine ondansetron (ZOFRAN) injection 4 mg 4 mg, Intravenous, EVERY 8 HOURS PRN, Starting on Mon06/13/18 at 1352, Until Mon06/21/18 at 1230, Nausea, Vomiting, May repeat in 30 minutes if inefffective oxyCODONE (ROXICODONE) immediate release tablet 5-10 mg 5-10 mg, Oral, EVERY 4 HOURS PRN, Starting on Mon06/18/18 at 1251, Until Mon06/21/18 at 1230, Pain, Severe pain (7-10), - Initial dose 5 mg. - If pain control not adequate in 60 minutes, give additional 5 mg., Routine prochlorperazine (COMPAZINE) injection 10 mg 10 mg, Intravenous, EVERY 6 HOURS PRN, Starting on Mon06/14/18 at 0236, Until Mon06/21/18 at 1230, Nausea, headache, Routine simethicone (MYLICON) chewable tablet 80 mg 80 mg, Oral, 4 TIMES DAILY PRN, Starting on Mon06/18/18 at 1251, Until Mon06/21/18 at 1230, Cramping, gas pain, Routine 1311 (Given - Provider: Mary Ann Bonilla RN) sodium chloride 0.9 % flush 5-20 mL 5-20 mL, Intravenous, EVERY 1 MIN PRN, Starting on Mon06/13/18 at 1352, Until Mon06/21/18 at 1230, flush, Flush pertains to all indwelling lines. Flush per protocol found in the job aid using the link provided on this medication record., Routine Linked Groups Order Group 1: ketorolac (TORADOL) injection 15 mg (COMPLETED)Jump to med 15 mg, Intravenous, EVERY 6 HOURS, 5 doses, First dose on Mon06/18/18 at 1315, Last dose on Mon06/19/18 at 1315, Routine Followed by ibuprofen (ADVIL;MOTRIN) tablet 600 mgJump to med 600 mg, Oral, EVERY 6 HOURS, First dose on Mon06/19/18 at 1915, Until Discontinued, - Begin after ketorolac discontinued. , Routine documented in this encounter Care Teams Delivery Of Shopping News Relationship Specialty Start Date End Date Shaneka Mae APRN PCP - General Family Medicine 06/13/18 01/09/19 documented as of this encounter
--- OUTSIDE RECORDS SUMMARY | 2024-06-26 16:45 | XMS_ITS | Encounter Summary ---
[place] [address] Care Team Providers Care Senior Officer Name Role Phone ZahraRaquleDomoniquemichelle Kim APRN Primary Care Provider [phone]- [phone] Reason for Visit * Reason Comments Routine Visit Encounter Details Date Type Department Care Team (Latest Contact Info) Description 07/15/2013 1:45 PM EST Routine Obstetrics [place] [id number] Severo Carreon MD [facility] [address] OBSTETRICS [place] [address] GA: 36w6d Discharge Disposition: Home Social History Tobacco Use Types Packs/Day Years Used Date Smoking Tobacco: Never Smokeless Tobacco: Never Alcohol Use Standard Drinks/Week Comments No 0 (1 standard drink = 0.6 oz pur e alcohol) Comments Yes Sex and Gender Information Value Date Recorded Sex Assigned at Not on file Gender Identity Not on file Sexual Orientation Not on file documented as of this encounter Last Filed Vital Signs Vital Sign Reading Time Taken Comments Blood Pressure 138/98 07/15/2013 1:03 PM EST Pulse - - Temperature - - Respiratory Rate - - Oxygen Saturation - - Inhaled Oxygen Concentration - - Weight 85.9 kg (189 lb 4.8 oz) 07/15/2013 1:03 P M EST Height - - Body Mass Index 32.49 07/10/2013 6:00 PM EST documented in this encounter Progress Notes * Severo Carreon MD - 07/15/2013 1:32 PM EST Correction: repeat c/s on 07/30 at 39w0d. Plan for Mirena IUD for contraception. Good movement. No contractions/ leaking fluid / bleeding / pain. No vision changes, RUQ pain. Headache unchanged. Reviewed pre-op instructions for planned repeat , as follows: no food after midnight the night before. You may drink water between 12mn and 6am. Do not shave abdomen or pubic hair due to increased risk of infection. Shower the night before and the morning of surgery with antibacterialsoap on abdomen, in area where incision will be made. Reviewed medications. Reviewed how to contactthe birthing pavilion, and time of arrival pre-surgery. Reviewed support person in OR; most women ready for discharge to home on the second day after delivery. documented in this encounter Plan of Treatment Not on file documented as of this encounter Visit Diagnoses Diagnosis Gestational hypertension, third trimester Hx of preeclampsia, prior , currently , third trimester Previous delivery affecting Previous delivery, unspecified as to episode of care or not applicable Unspecified high-risk documented in this encounter Care Teams Senior Officer Relationship Specialty Start Date End Date Domonique Sweeney APRN [facility] [address] [place] [address] PCP - General 11/30/12 06/12/18 documented as of this encounter
--- OUTSIDE RECORDS SUMMARY | 2024-06-26 16:45 | XMS_ITS | Encounter Summary ---
[place] [address] Care Team Providers Care Navy Diver Name Role Phone Domonique Sweeney APRN Primary Care Provider [phone]- [phone] Encounter Details Date Type Department Care Team (Late st Contact Info) Description 07/10/2013 Telephone Obstetrics [place] [id number] Vaishnavi Watson RN Social History Tobacco Use Types Packs/Day [...] encounter Miscellaneous Notes * Telephone Encounter - Vaishnavi Watson RN - 07/10/2013 11:25 AM EST Carol calls today for multiple reasons. She states that this morning she felt a gush of clear fluid, and has continued to leak all day. She also states that last evening her blood pressure was 150/108. She has not taken her BP this morning. She states that she has a headache and is dizzy. She also reports that she has not felt her baby move all day. Carol denies overt contractions but does state that she has been feeling back pain that improves with movement. She denies bleeding. Carol will come in to the [facility] for assessment, and states that she has a ride to get to [facility]. Beverly Vale, call center associate at the is updated re: Carol's history and impending arrival. documented in this encounter Plan of Treatment Not on file documented as of this encounter Visit Diagnoses Not on filedocumented in this encounter Care Teams Navy Diver Relationship Specialty Start Date End Date Domonique Sweeney APRN [facility] [address] [place] [address] PCP - General 11/30/12 06/12/18 documented as of this encounter
--- OUTSIDE RECORDS SUMMARY | 2024-06-26 16:45 | XMS_ITS | Encounter Summary ---
[place] [address] Care Team Providers Care Production Packager Name Role Phone Domonique Sweeney Judy CABA Primary Care Provider [phone]- [phone] Encounter Details Date Type Department Care Team (Late st Contact Info) Description 07/01/2013 Orders Only Obstetrics [place] [address] Severo Carreon MD [facility] [address] OBSTETRICS [place] [address] (Primary Dx) Social History Tobacco Use Types Packs/Day Years [...] on file documented as of this encounter Results * US OB follow up evaluation (07/08/2013 9:24 AM EST) Anatomical Region Laterality Modality Pelvis, Abdomen Ultrasound 07/08/2013 9:24 AM EST Narrative 07/08/2013 9:30 AM EST ?OBSTETRICS REPORT ? (Signed Final 07/08/2013 09:28 am) Patient Info ID: ? [id number] ? : ??[birth year] (17 yrs) Name: ? SHAWN PEÑALOZA ? Visit Date: 07/08/2013 09:22 am ? CONNIE Performed By Performed By: ?Zaida Isaacs RDMS Attending: ? Kanika MAGUIRE, Don Martinez Referred By: ? DON GLASS MD OB History BMI: ?27.29 Service(s) Provided UOBFOL - Efw - Growth - Reevaluation - [place] ?[id number] - [id number] Indications growth mfm to read Evaluation Num Of Fetuses: ?1 Heart Rate: ??143 ?bpm Cardiac Activity: ??Observed, normal rhythm Presentation: ?Breech Placenta: ?Anterior P. Cord ?Within Normal Limits Insertion: Amniotic Fluid GABINO FV: ?Normal GABINO Sum: ? 12.6 ?cm ? Larg Pckt: ? 3.7 ??cm RUQ: ?? 3.7 ? cm ?LUQ: ?? 3.1 ?cm RLQ: ?? 2.5 ? cm ?LLQ: ?? 3.3 ?cm -------- Biometry -------- BPD: ?87 ??mm ?G. Age: ?? 35w 1d ? 37 ??% HC: ? 345 ?? mm ?G. Age: ?? 39w 6d ? 96 ??% AC: ? 321 ?? mm ?G. Age: ?? 36w 0d ? 64 ??% FL: ? 70 ??mm ?G. Age: ?? 35w 6d ? 46 ??% HUM: ?60 ??mm ?G. Age: ?? 34w 6d ? 43 ??% CI: ? 65.54 ??% ? 70 - 86 FL/HC: ? 20.3 ??% ? 20.1 - 22.1 HC/AC: ? 1.07 ?0.93 - 1.11 FL/BPD: ?80.5 ??% ? 71 - 87 FL/AC: ? 21.8 ??% ? 20 - 24 Est. FW: ?2900 ?? gm ? 6 lb 6 oz ? 75 ??% Gestational Age U/S Today: ? 36w 5d ?TYE: ?? 07/31/13 Best: ?35w 6d ?? Det. By: ??U/S C R L ?TYE: ?? 08/06/13 ? (12/25/12) ------- Anatomy ------- Cranium: ?Visualized Cavum: ?Visualized Ventricles: ? Not visualized due to late gestational age Choroid Plexus: ? Not visualized due to late gestational age Cerebellum: ? Not visualized due to late gestational age Posterior Fossa: ?Not visualized due to late gestational age Nuchal Fold: ?Not evaluated at this gestational age Face: ? Limited views Heart: ?4-chamber view appears normal RVOT: ? Visualized LVOT: ? Visualized Diaphragm: ?Visualized Stomach: ?Visualized Abdomen: ?Within Normal Limits Abdominal Wall: ? Not visualized due to late gestational age Cord Vessels: ? 3-vessels- WNL Kidneys: ?Visualized Bladder: ?Visualized Spine: ?Limited views Lower ? Limited views Extremities: Upper ? Limited views Extremities: Cervix Uterus Adnexa Left Ovary: ?Not visualized Right Ovary: ?? Not visualized Impression 3rd Trimester Summary Single intrauterine with a gestational age of 35w 6d based on CRL. Composite age based on the current ultrasound alone is 36w 5d. Estimated weight corresponds to the 75th percentile for 35w 6d. Current growth parameters are consistent indicating normal growth. Amniotic fluid volume is normal, GABINO = 12.6 cm. Anatomical survey is limited due to the late gestational age, however no structural abnormalities are noted. NOTE THIS FETUS IS BREECH I ??viewed the images and agree with the above interpretation. Thank you for allowing us to participate in the care of SHAWN ROSALES. Please do not hesitate to call if you have any questions. ? Don Glass MD Electronically Signed Final Report ?? 07/08/2013 09:28 am Procedure Note Don Glass MD - 07/08/2013 OBSTETRICS REPORT (Signed Final 07/08/2013 09:28 am) Patient Info ID: [id number] : [birth year] (17 yrs) Name: SHAWN PEÑALOZA Visit Date: 07/08/2013 09:22 am CONNIE Performed By Performed By: Zaida Isaacs RDMS Attending: Don Glass MD Referred By: DON GLASS MD OB History BMI: 27.29 Service(s) Provided UOBFOL - Efw - Growth - Reevaluation - [place] [id number] - [id number] Indications growth mfm to read Evaluation Num Of Fetuses: 1 Heart Rate: 143 bpm Cardiac Activity: Observed, normal rhythm Presentation: Breech Placenta: Anterior P. Cord Within Normal Limits Insertion: Amniotic Fluid GABINO FV: Normal GABINO Sum: 12.6 cm Larg Pckt: 3.7 cm RUQ: 3.7 cm LUQ: 3.1 cm RLQ: 2.5 cm LLQ: 3.3 cm -------- Biometry -------- BPD: 87 mm G. Age: 35w 1d 37 % HC: 345 mm G. Age: 39w 6d 96 % AC: 321 mm G. Age: 36w 0d 64 % FL: 70 mm G. Age: 35w 6d 46 % HUM: 60 mm G. Age: 34w 6d 43 % CI: 65.54 % 70 - 86 FL/HC: 20.3 % 20.1 - 22.1 HC/AC: 1.07 0.93 - 1.11 FL/BPD: 80.5 % 71 - 87 FL/AC: 21.8 % 20 - 24 Est. FW: 2900 gm 6 lb 6 oz 75 % Gestational Age U/S Today: 36w 5d TYE: 07/31/13 Best: 35w 6d Det. By: U/S C R L TYE: 08/06/13 (12/25/12) ------- Anatomy ------- Cranium: Visualized Cavum: Visualized Ventricles: Not visualized due to late gestational age Choroid Plexus: Not visualized due to late gestational age Cerebellum: Not visualized due to late gestational age Posterior Fossa: Not visualized due to late gestational age Nuchal Fold: Not evaluated at this gestational age Face: Limited views Heart: 4-chamber view appears normal RVOT: Visualized LVOT: Visualized Diaphragm: Visualized Stomach: Visualized Abdomen: Within Normal Limits Abdominal Wall: Not visualized due to late gestational age Cord Vessels: 3-vessels- WNL Kidneys: Visualized Bladder: Visualized Spine: Limited views Lower Limited views Extremities: Upper Limited views Extremities: Cervix Uterus Adnexa Left Ovary: Not visualized Right Ovary: Not visualized Impression 3rd Trimester Summary Single intrauterine with a gestational age of 35w 6d based on CRL. Composite age based on the current ultrasound alone is 36w 5d. Estimated weight corresponds to the 75th percentile for 35w 6d. Current growth parameters are consistent indicating normal growth. Amniotic fluid volume is normal, GABINO = 12.6 cm. Anatomical survey is limited due to the late gestational age, however no structural abnormalities are noted. NOTE THIS FETUS IS BREECH I viewed the images and agree with the above interpretation. Thank you for allowing us to participate in the care of SHAWN ROSALES. Please do not hesitate to call if you have any questions. Don Glass MD Electronically Signed Final Report 07/08/2013 09:28 am E Almaz Carreon MD IMG US OB ORDERAB LES documented in this encounter Visit Diagnoses Diagnosis - Primary state, incidental state, incidental documented in this encounter Care Teams Production Packager Relationship Specialty Start Date End Date Domonique Sweeney APRN [facility] [address] [place] [address] PCP - General 11/30/12 06/12/18 documented as of this encounter
--- OUTSIDE RECORDS SUMMARY | 2024-06-26 16:45 | XMS_ITS | Encounter Summary ---
[place] [address] Care Team Providers Care Cartographic Drafter Name Role Phone Domonique Sweeney Judy CABA Primary Care Provider [phone] Encounter Details Date Type Department Care Team (Late st Contact Info) Description 07/20/2013 2:08 PM EST [place] [id number] Roberto Delarosa MD [facility] [place] [address] Carlton Boyer MD Anesthesia Record Procedure Summary Procedure Name Responsible Anesthesiologist Anesthesia Start Time Anesthesia Stop Time @ DELIVERY (WRVU 16.13) (Bilateral: Abdomen) Roberto Delarosa MD 07/20/13 1408 07/20/13 1526 Events Date Time Event Comment 07/20/2013 1408 AN Verify 1408 Start 1408 An Start Data 1412 Spinal 1413 Anesthesia Ready 1414 L Uterine Displacement 1422 an bonnie now 1422 Procedure Start 1422 Skin Incision 1435 Uterine Incision 1437 Baby Delivered 1523 an stop data 1526 Stop 07/22/2013 1143 Meds Name Total fentaNYL 25 mcg PHENYLephrine INF 300 mcg BUPivacaine (pf) (Sensorcain e) (7.5 mg/mL) 0.75% in dextrose 8.25% INTRATHECAL injection 12 mg chloroprocaine 3% 14 mL oxytocin 0.06 units/mL INF 120 mL Morphine(Neuraxial) 200 mcg ceFAZolin 2 g lactated ringers 2,000 mL * Agents Name O2 Air * Blood No blood administrations on file. Lines, Drains, and Airways Type Details Placement Removal (RETIRED) Peripheral IV Line - Single Lumen 07/10/13; 1825; 07/22/13; 1138 07/10/13 1825 by Earlene Koroma RN 07/22/13 1138 by Minnie Christian RN (RETIRED) Peripheral IV Line - Single Lumen 07/19/13; 2200; 07/21/13; 1200 07/19/13 2200 by Ander Cueva RN 07/21/13 1200 by Nicole Borja RN Urethral Catheter 07/20/13; 1420; 100% silicone; 16; inserted; 1; leg bag to dependent drainage; 07/21/13; 0801 07/20/13 1420 by Macey Borrego RN 07/21/13 0801 by Nicole Borja RN (RETIRED By SPR20) Incision 07/20/13; 1430; 07/22/13; 1138 07/20/13 1430 by Macey Borrego RN 07/22/13 1138 by Minnie Christian RN documented in this encounter Social History Tobacco Use Types Packs/Day Years Used Date Smoking Tobacco: Never Smokeless Tobacco: Never Alcohol Use Standard Drinks/Week Comments No 0 (1 standard drink = 0.6 oz pur e alcohol) Sex and Gender Information Value Date Recorded Sex Assigned at Not on file Gender Identity Not on file Sexual Orientation Not on file documented as of this encounter OR Notes * Anesthesia Postprocedure Evaluation - Carlton Boyer MD - 07/22/2013 9:19 AM EST Patient: Carol Spears Procedure(s) Performed: Procedure(s): @ DELIVERY Actual Anesthetic: No value filed. Patient location: Labor and Delivery Post-op pain: Adequate analgesia Post-op nausea: no nausea or vomiting Last Vitals: Filed Vitals: 07/22/13 0832 BP: 147/91 Pulse: Temp: Resp: Post-op cardiovascular and respiratory status: is stable Level of consciousness: awake, alert and oriented Complications: no apparent complications and tolerated the procedure well Fluid Status: normal The pt is S/P with epidural analgesia. The pt denies any residual neuromuscular blockade,has been able to ambulate and void without difficulty, denies QUESADA's, changes in vision, or back pain. Pt reports satisfaction with her anesthetic care. * Anesthesia Procedure Notes - Drew Khan - 07/20/2013 3:08 PM EST Associated Order(s): ANE NEURAXIAL UPDATED; ANE NEURAXIAL UPDATED Procedure: Neuraxial Block Primary Anesthetic Type: Spinal The patient was greeted; the risks and benefits were reviewed. The anesthetic consent was obtained.The medical history and chart were reviewed. The timeout was performed. Start time: 07/20/2013 2:02 PM End time: 07/20/2013 2:12 PM Patient Location: Operating Room Patient Prep Position: Sitting Prep: Hand Hygiene, Hat, Mask, Sterile Gloves and Chlorhexidine Injection technique: single-shot Skin Anesthetic Lidocaine 1% 2 ml Procedure Technique Level of needle insertion: L3-4 Needle approach: midline Needle Type: [facility] Gauge: 25 Number of attempts: 1 Intrathecal Injection The patient received the following medication/s as an intrathecal injection: Bupivacaine 0.75% w dextrose 1.6 ml Fentanyl 25 mcg Morphine 200 mcg Epinephrine Epi Wash Events/Notes Events: None Performed by: Drew Khan Supervising Attending/Fellow: Roberto Delarosa ~~~~~~~~~~~~~~~~~~~~~~~~~~~~~~~~~~~~~~~~~~~~~~~~~~~~~~~~~~~~ * Anesthesia Preprocedure Evaluation - Carlton Boyer MD - 07/20/2013 6:34 AM EST Pre-Anesthesia Evaluation for: Carol Marlin Regan a 17 y.o. female. Patient Active Problem List Diagnosis ??? Tachycardia Sinus tach to 140s on admission 2/8 w/associated chest discomfort. ??? Gestational hypertension ??? Rubella non-immune status, antepartum ??? Unspecified high-risk Team MFM Delivery plan Desires GBS date & Result Cystic fibrosis choice Aneuploidy choice Others screening tests Infant nutrition Childbirth education preferences Contraception plan Ped/circ plans Immunizations: Influenza vaccine Accepted Declined Contraindicated Other vaccines Indicated Not indicated Given during Tdap Pneumovax MMR Varicella Other ??? Hx of preeclampsia, prior , currently Severe PEC at 28 weeks, IUGR, LTCS for NRFWB ??? Previous delivery affecting Considering ERCS. Provided info Primary LTCS on primary. Wants ERCS in setting of breech presentation Past Medical History Diagnosis Date ??? Hypertension only with preeclampsia Past Surgical History Procedure Date ??? section 2010 ??? Appendectomy 2008 History Substance Use Topics ??? Smoking status: Never Smoker ??? Smokeless tobacco: Never Used ??? Alcohol Use: No History Drug Use No No Known Allergies Medications: MAR and/or home medications have been reviewed. Physical Exam: There were no vitals filed for this visit. There is no height or weight on file to calculate BMI. Airway Assessment: Mallampati: II TM distance: >3 FB Neck ROM: full Cardiovascular Assessment: Pulmonary Assessment: Dental Assessment: Misc Assessment: Anesthesia Plan: ASA 2 spinal, Pt interviewed and examined. Pt is a 17 y.o. female who is and 37w4d here for repeat . Medical history, medications, allergies, and social history reviewed, significant for gestational hypertension and childhood asthma. Work up for preeclampsia currently being done. Labs reviewed and listed below. No contraindication to a neuraxial technique. Consent obtained. Risk, benefits discussed; questions answered. Discussed potential need for labor analgesia and/or anesthesia to possibly include epidural, spinal, CSE, and anesthesia for (which includes all of the above with the addition of general anesthesia.) Labs: HGB 11.7 07/19/2013 HCT 34.6 07/19/2013 PLATELET 153 07/19/2013 Type and Screen: ABORH A Pos 07/19/2013 Lines: Patient Active Problem List: Hx of preeclampsia, prior , currently (V23.49) Previous delivery affecting (654.20) Unspecified high-risk (V23.9) Rubella non-immune status, antepartum (646.83, V15.83) Gestational hypertension (642.30) Tachycardia (785.0) Informed Consent: Anesthetic plan and risks discussed with patient. Plan discussed with attending. [facility]. Assessment: documented in this encounter Plan of Treatment Not on file documented as of this encounter Procedures Procedure Name Priority Date/Time Associated Diagnosis Comments ANE NEURAXIAL UPDATED Routine 07/20/2013 3:09 PM EST documented in this encounter Results * ANE NEURAXIAL UPDATED (07/20/2013 3:09 PM EST) Narrative Drew Khan - 07/20/2013 3:09 PM EST Drew Khan MD ? 07/20/2013 ??3:09 PM Procedure: ?? Neuraxial Block Primary Anesthetic Type: Spinal The patient was greeted; the risks and benefits were reviewed. ?? The anesthetic consent was obtained. ??The medical history and chart were reviewed. ??The timeout was performed. Start time: 07/20/2013 2:02 PM End time: 07/20/2013 2:12 PM Patient Location: Operating Room Patient Prep Position: Sitting Prep: Hand Hygiene, Hat, Mask, Sterile Gloves and Chlorhexidine Injection technique: single-shot Skin Anesthetic Lidocaine 1% ??2 ml Procedure Technique Level of needle insertion: L3-4 Needle approach: midline Needle Type: [facility] Gauge: 25 Number of attempts: 1 Intrathecal Injection The patient received the following medication/s as an intrathecal injection: Bupivacaine 0.75% w dextrose 1.6 ml Fentanyl ??25 mcg Morphine ??200 mcg Epinephrine ??Epi Wash Events/Notes Events: ??None Performed by: ??Drew Khan Supervising Attending/Fellow: ??Roberto Delarosa ~~~~~~~~~~~~~~~~~~~~~~~~~~~~~~~~~~~~~~~~~~~~~~~~~~~~~~~~~~~~ Procedure Note Drew Khan - 07/20/2013 3:08 PM EST Procedure: Neuraxial Block Primary Anesthetic Type: Spinal The patient was greeted; the risks and benefits were reviewed. Theanesthetic consent was obtained. The medical history and chart werereviewed. The timeout was performed. Start time: 07/20/2013 2:02 PM End time: 07/20/2013 2:12 PM Patient Location: Operating Room Patient Prep Position: Sitting Prep: Hand Hygiene, Hat, Mask, Sterile Gloves and Chlorhexidine Injection technique: single-shot Skin Anesthetic Lidocaine 1% 2 ml Procedure Technique Level of needle insertion: L3-4 Needle approach: midline Needle Type: [facility] Gauge: 25 Number of attempts: 1 Intrathecal Injection The patient received the following medication/s as an intrathecalinjection: Bupivacaine 0.75% w dextrose 1.6 ml Fentanyl 25 mcg Morphine 200 mcg Epinephrine Epi Wash Events/Notes Events: None Performed by: Drew Khan Supervising Attending/Fellow: Roberto Delarosa ~~~~~~~~~~~~~~~~~~~~~~~~~~~~~~~~~~~~~~~~~~~~~~~~~~~~~~~~~~~~ Drew Khan MD DESIGNER [employer] [facility] * ANE NEURAXIAL UPDATED (07/20/2013 3:09 PM EST) Narrative Drew Khan - 07/20/2013 3:09 PM EST Drew Khan MD ? 07/20/2013 ??3:09 PM Procedure: ?? Neuraxial Block Primary Anesthetic Type: Spinal The patient was greeted; the risks and benefits were reviewed. ?? The anesthetic consent was obtained. ??The medical history and chart were reviewed. ??The timeout was performed. Start time: 07/20/2013 2:02 PM End time: 07/20/2013 2:12 PM Patient Location: Operating Room Patient Prep Position: Sitting Prep: Hand Hygiene, Hat, Mask, Sterile Gloves and Chlorhexidine Injection technique: single-shot Skin Anesthetic Lidocaine 1% ??2 ml Procedure Technique Level of needle insertion: L3-4 Needle approach: midline Needle Type: [facility] Gauge: 25 Number of attempts: 1 Intrathecal Injection The patient received the following medication/s as an intrathecal injection: Bupivacaine 0.75% w dextrose 1.6 ml Fentanyl ??25 mcg Morphine ??200 mcg Epinephrine ??Epi Wash Events/Notes Events: ??None Performed by: ??Drew Khan Supervising Attending/Fellow: ??Roberto Delarosa ~~~~~~~~~~~~~~~~~~~~~~~~~~~~~~~~~~~~~~~~~~~~~~~~~~~~~~~~~~~~ Procedure Note Drew Khan - 07/20/2013 3:08 PM EST Procedure: Neuraxial Block Primary Anesthetic Type: Spinal The patient was greeted; the risks and benefits were reviewed. Theanesthetic consent was obtained. The medical history and chart werereviewed. The timeout was performed. Start time: 07/20/2013 2:02 PM End time: 07/20/2013 2:12 PM Patient Location: Operating Room Patient Prep Position: Sitting Prep: Hand Hygiene, Hat, Mask, Sterile Gloves and Chlorhexidine Injection technique: single-shot Skin Anesthetic Lidocaine 1% 2 ml Procedure Technique Level of needle insertion: L3-4 Needle approach: midline Needle Type: [facility] Gauge: 25 Number of attempts: 1 Intrathecal Injection The patient received the following medication/s as an intrathecalinjection: Bupivacaine 0.75% w dextrose 1.6 ml Fentanyl 25 mcg Morphine 200 mcg Epinephrine Epi Wash Events/Notes Events: None Performed by: Drew Khan Supervising Attending/Fellow: Roberto Delarosa ~~~~~~~~~~~~~~~~~~~~~~~~~~~~~~~~~~~~~~~~~~~~~~~~~~~~~~~~~~~~ Drew Khan MD DESIGNER WRITER [facility] documented in this encounter Visit Diagnoses Not on filedocumented in this encounter Administered Medications Inactive Administered Medications - up to 3 most recent administrations Medication Order MAR Action Action Date Dose Rate Site BUpivacaine 0.75% in dextrose 8.25% (intrathecal) (SENSORCAINE) 7.5 mg/mL (0.75 %) injection PRN, Starting on 07/20/13 at 1412, Until 07/20/13 at 1526, Anesthesia Intra-op, Routine Given 07/20/2013 2:12 PM EST 12 mg ceFAZolin (ANCEF) 1g in dextrose 5% 50mL PRN, Starting on 07/20/13 at 1416, Until 07/20/13 at 1526, Administer over 30 Minutes, Anesthesia Intra-op Given 07/20/2013 2:16 PM EST 2 g chloroprocaine (NESACAINE) injection PRN, Starting on 07/20/13 at 1438, Until 07/20/13 at 1526, Anesthesia Intra-op, Routine Given 07/20/2013 2:38 PM EST 14 mLs fentaNYL 50mcg/mL injection PRN, Starting on 07/20/13 at 1412, Until 07/20/13 at 1526, Pain, Anesthesia Intra-op, Routine Given 07/20/2013 2:12 PM EST 25 mcg lactated ringers infusion CONTINUOUS PRN, Starting on 07/20/13 at 1408, Until 07/20/13 at 1526, Anesthesia Intra-op New Bag 07/20/2013 2:33 PM EST mL New Bag 07/20/2013 2:08 PM EST mL morphine (PF) (DURAMORPH) 0.5 mg/mL injection PRN, Starting on 07/20/13 at 1412, Until 07/20/13 at 1526, Pain, Anesthesia Intra-op, Routine Given 07/20/2013 2:12 PM EST 200 mcg oxytocin (PITOCIN) 30 units in sodium chloride 0.9% 500 mL infusion CONTINUOUS PRN, Starting on 07/20/13 at 1438, Until 07/20/13 at 1526, Piggyback into Lactated Ringers; Start at 2 milliunits/minute and increase by 2 milliunits/minutes every 30 minutes to achieve contractions that are every 2-3 minutes, lasting 60-90 seconds with 1 minute resting tone between contractions palpating strong. Oxytocin may not be initiated until: - 1 hour after Cervidil is removed - 4 hours after last minute misoprostol dose is given, Anesthesia Intra-op, Routine New Bag 07/20/2013 2:38 PM EST 150 mL/hr 150 mL/hr PHENYLephrine (MATT-SYNEPHRINE) 20 mg in sodium chloride 250 mL infusion CONTINUOUS PRN, Starting on 07/20/13 at 1416, Until 07/20/13 at 1526, Anesthesia Intra-op, Routine Rate/Dose Change 07/20/2013 2:24 PM EST 20 mcg/min 15 mL/hr New Bag 07/20/2013 2:16 PM EST 30 mcg/min 22.5 mL/hr documented in this encounter Care Teams Cartographic Drafter Relationship Specialty Start Date End Date Domonique Sweeney, MOLDING ENGINEER [facility] [address] [place] [address] PCP - General 11/30/12 06/12/18 documented as of this encounter
--- OUTSIDE RECORDS SUMMARY | 2024-06-26 16:45 | XMS_ITS | Encounter Summary ---
[place] [address] Care Team Providers Care Cork Insulation Installer Name Role Phone Zahra Domonique Kim APRN Primary Care Provider [phone] Reason for Visit * Reason Comments Contractions 4-8 mins apart since approximately 0900 today. Hypertension elevated blood press ures at home (170/97 and 150/102). Encounter Details Date Type Department Care Team (Latest Contact Info) Description 07/20/2013 12:53 AM EST - 07/22/2013 1:34 PM [facility] [place] [address] Felecia Hadley MD [facility] [address] OBSTETRICS [place] [address] Tachycardia; Previous delivery affecting ; Gestational hypertension, third trimester Discharge Disposition: Home Social History Tobacco Use [...] Sign Reading Time Taken Comments Blood Pressure 150/93 07/22/2013 11:00 AM EST Pulse 76 07/22/2013 11:00 AM EST Temperature 37 ??C (98.6 ??F) 07/22/2013 11:00 AM EST Respiratory Rate 18 07/22/2013 11:00 AM EST Oxygen Saturation 99% 07/22/2013 11:00 AM EST Inhaled Oxygen Concentration - - Weight 85.3 kg (188 lb) 07/19/2013 11:13 PM EST Height 162.6 cm (5' 4) 07/19/2013 11:13 PM EST Body Mass Index 32.27 07/19/2013 11:13 PM EST documented in this encounter Discharge Instructions * Discharge Instructions* Minnie Christian RN - 07/22/2013 11:41 AM EST Nursing Inpatient Progress C - Section Follow-up Follow-ups: Please schedule a follow up with your primary OB provider. Immunizations Received: [ ] MMR [ ] Tdap [ ] Inactivated Influenza Vaccine [ ] Other: Medications Received: [ ] Rhogam Given: (time/date) [ ] Depoprovera Given: (time/date) [ ] Other: Referrals: Additional Instructions: Maternal Discharge Instructions Rest: Although it may seem impossible to get enough rest, simple planning will help. Try to get at least one four hour block of uninterrupted sleep in 24 hours; then plan to rest, and/or sleep when your baby does. Limiting visitors also helps. Fathers and other family members can help by doing housework, caring for other children and/or helping limit visitors. Activity: After delivery, it is safe to climb stairs at home. Do not lift anything heavierthan your baby for two weeks. Do not drive for two weeks or while taking pain medicine that contains a narcotic as your reaction time may be decreased. Nutrition: Your diet following the of your baby is as important as it was before the baby wasborn. Drink a minimum of 6-8 glasses a day. Do not attempt to lose weight during the first six weeks. Continue taking your vitamins until they are gone. Lochia: (Flow) Your flow should be no heavier than a normal period. It will be bright red for 2-3 days and then pinkish and finally colorless. If your flow becomes bright red again, decrease your activity. Do not use tampons until your care provider advises you it is OK. Incision: Wash the incision with soap and water and pat dry. It is normal to have clear or pinkish fluid seep from the incision. Gauze pads or sanitary napkins may help to keep the incision dry if itis located in a fold under your tummy. If the incision has more redness, yellow drainage, or becomes more painful, contact the obstetrics clinic. Breast Care for Formula feeding mothers: Wear a well fitting bra to support your breasts. Ice packsto your breasts and Tylenol or Ibuprofen may be used to relieve discomfort from engorgement. Avoid stimulating your breasts: Do not let warm water from the shower fall on them; avoid holding your baby near your breasts until your milk begins to decrease and engorgement is relieved. Breast feeding mothers: Practice careful positioning and frequent feeding as demonstrated in the hospital. The printed information in your packet covers this in detail. Call your doctor or psych specialist for: Fever more than 100.5 Heavy bleeding that saturates a pad an hour Clots larger than a plum Increased abdominal pain, nausea, shaking chills Increased redness or soreness over your incision Breast with hot, hard, tender areas on the breast plus flu-like symptom depression occurs in a large percentage of women. We encourage you to contact your provider or a member of the nursing staff if you are feeling so overwhelmed that you are unable to care for yourself or your baby. Keep your follow up appointment. You may call the [facility] at any time for guidance or for answers to questions that come up prior to you follow up appointment. Your [facility] Provider can be reached during office hours at [facility]wives [facility]etric[facility] Follow-up Clinic AFTER OFFICE HOURS for the motor vehicle inspector or psych specialist pond worker Provider electronic signature confirms that discharge instructions were reviewed with the patient. A copy was printed and given to the patient. documented in this encounter Medications at Time of Discharge Medication Sig Dispensed Refills Start Date End Date butalbital-acetaminophe n-caffeine (FIORICET, ESGIC) per tablet Take 2 tablets by mouth every 4 hours as needed for Pain. 10 tablet 0 06/14/2013 docusate sodium (COLACE) 100 mg capsule Take 1 capsule by mouth 2 times daily for 10 days. 10 capsule 2 07/22/2013 08/01/2013 OXYcodone (ROXICODONE) 5 mg immediate release tablet Take 1-2 tablets by mouth every 4 hours as needed for Pain. 30 tablet 0 07/22/2013 09/02/2013 aspirin 81 mg chewable tabletIndications:Hx of preeclampsia, prior , currently Take 81 mg by mouth daily. 30 tablet 3 12/24/2012 09/02/2013 VITS W-CA,FE,FA,<1MG, ( VITAMIN ORAL) 08/03/201008/11 documented as of this encounter Progress Notes * Fermin Najera Bn - 07/22/2013 12:45 PM EST Care Management/ Social Work Contact/ Referral: Assessment and introduction to the role of SW S/O: Shawn Isaac is a 17 y.o. female who recently gave to her second son, Nahum. Her first son is Graham, who is 3 y.o. Bucky is the father of both Graham and Nahum. Shawn Isaac, Bucky, Graham, and Nahum will all live in [place], [place] with Bucky's mother. 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 She hopes to be a nurse in the NICU. Bucky roejemal works at a car dealership where he does odd-end jobs. Shawn Isaac is utilizing the WIC program, and denies needing assistance from other resources (e.g. SNAP, Reach Up). Shawn Isaac and Bucky identifyBucky's mother and Shawn Isaac's grandmother as strong social supports. A: Shawn Isaac and Bucky just had their second child together. They have two sons, Graham (3 y.o.) andNahum (). The family lives in [place], [place] with Bucky's mother. 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 Bucky works at a car dealership where he does odd-end jobs. Family is appropriately utilizing public supports and appear to have strongsupport from family. P: SW will continue to follow for ongoing support. MEAGHAN Perry Student Pager [phone] My supervisors are MEAGHAN Wiseman, DEPARTMENT SUPERVISOR and MEAGHAN Shrestha, DEPARTMENT SUPERVISOR * Radha Soliman MD - 07/22/2013 7:03 AM EST PGY3 Delivery Note Patient ID: Ms. Shawn Spears is a 17 y.o. year old otherwise heatlhy postop day #2 after repeat delivery at 37+4/7 weeks for gestational hypertension S: The patient has no complaints currently. She reports chest discomfort and shortness of breath have resolved. Has been ambulating well, urinating without problem, and had one normal consistency bowel movement. Baby reportedly doing well. Lochia mild. Pain is well controlled with oxycodone and toradol. Has had difficulty producing milk (same with last ) and is planning on bottle feeding. Reports she does not want a consult, but prefers bottle feeding. Desires Mirena for contraception. Patient wants to return home this afternoon if possible because she reports she is feeling much better and wants to be with her 3 year old at home. O: Last value Range last 24 hrs Temperature Temp: 36.6 ??C (97.9 ??F) Temp: [36.6 ??C (97.9 ??F)-37.1 ??C (98.8 ??F)] Heart Rate Heart Rate: 78 Heart Rate: [72-80] Blood Pressure BP: 147/91 mmHg BP: (142-150)/(91-108) Respiratory Rate Resp: 18 Resp: [18] SpO2 SpO2: 99 % SpO2: [99 %] Intake/Output Summary (Last 24 hours) at 07/22/13 0836 Last data filed at 07/21/13 1200 Gross per 24 hour Intake 0 ml Output 800 ml Net -800 ml Exam: Gen: appropriate young woman lying in bed in no acute distress. Cardiac: RRR, S1, S2, no rub/gallop/murmur. Pulmonary: CTAB, no rales, wheeze/rhonchi. Abdomen: Soft, symmetric, nontender, +BS Uterus: firm, 3cm below umbilicus Dressing: Wound is clean/dry/intact Extremities: nontender, no edema Recent Labs Basename 07/22/13 0746 07/21/13 0751 07/19/13 2200 WBC 8.0 6.8 11.9* HGB 9.6* 7.9* 11.7 HCT 28.1* 23.3* 34.6 PLATELET 129* 96* 153 Recent Labs Basename 07/22/13 0746 07/21/13 0751 07/19/13 2200 NA -- -- -- K -- -- -- CL -- -- -- CO2 -- -- -- BUN -- -- -- CREATININE 0.68* 0.54* 0.65* MAGNESIUM -- -- -- PHOS -- -- -- AST: wnl Assessment: 17 y.o. year old otherwise heatlhy postop day #2 after repeat deliveryat 37+4/7 weeks for gestational hypertension. Patient overall doing well . Postop HELLP labs reassuring, with platelets trending upwards and reassuring creatinine and AST. Hgb was low on follow up labs yesterday, and is also trending upwards, and may have explained patient's prior SOB. Though asymptomatic today (no lightheadedness, pallor, SOB), with only mild vaginal bleeding reported.Overall, clinical trajectory is good and patient hemodynamically stable and would be reasonable fordischarge, as per patient's wishes, if continues to do well this afternoon. Plan: ?? Continue routine care. ?? mirena IUD for contraception ?? Bottle feeding with formula ?? Follow-up: 6 wk visit ?? D/C this afternoon versus tomorrow This patient was seen and discussed on rounds. KAN HUDSON MD 07/22/2013 Addendum: I have seen and examined this pt, and discussed exam, assessment and plan with Dr Hudson; I agree with her note above. In summary, pt is POD2 from primary C/S for malpresentation and is doing well. Ambulating, voiding, myron PO well, adequate analgesia. Some dependent edema, abd NT and incision clean. Plans discharge today, Mirena IUD for contraception, PP f/u 6 wks. Radha Soliman MD * Dena Sun RN - 07/22/2013 7:00 AM EST 06:45 - RN attempted to draw AM labs, pt difficult stick, RN unable and IV Team called to bedside, will cont to monitor * Don Glass MD - 07/21/2013 7:52 AM EST PGY3 Delivery Note Patient ID: Ms. Shawn Spears is a 17 y.o. year old otherwise heatlhy postop day #1 after repeat delivery at 37+4/7 weeks for gestational hypertension Interval Events: - PE protocol CT for persistent tachycardia yesterday negative for PE S: The patient has no complaints currently. She reports chest discomfort yesterday morning resolved. Not yet ambulatory or passing flatus. Aldrich remains in situ. Baby reportedly doing well. Lochia moderate. Pain is well controlled with oxycodone and toradol. and pumping for nutrition without difficulty. O: Last value Range last 24 hrs Temperature Temp: 36.8 ??C (98.2 ??F) Temp: [36.7 ??C (98.1 ??F)-37.4 ??C (99.3 ??F)] Heart Rate Heart Rate: 75 Heart Rate: [75-110] Blood Pressure BP: 139/89 mmHg BP: (121-148)/(62-101) Respiratory Rate Resp: 18 Resp: [16-18] SpO2 SpO2: 97 % SpO2: [97 %-100 %] Intake/Output Summary (Last 24 hours) at 07/21/13 0752 Last data filed at 07/21/13 0600 Gross per 24 hour Intake 3000 ml Output 4650 ml Net -1650 ml Exam: Gen: appropriate young woman lying in bed in no acute distress. Cardiac: RRR, S1, S2, no rub/gallop/murmur. Pulmonary: CTAB, no rales, wheeze/rhonchi. Abdomen: Soft, symmetric, nontender, +BS Uterus: firm, 3cm below umbilicus, appropriately tender : aldrich in situ Dressing: clean/dry/intact Extremities: nontender, no edema, SCDs in place Recent Labs Basename 07/19/13 2200 WBC 11.9* HGB 11.7 HCT 34.6 PLATELET 153 Recent Labs Basename 07/19/13 2200 NA -- K -- CL -- CO2 -- BUN -- CREATININE 0.65* MAGNESIUM -- PHOS -- (repeat CBC, AST, Creatinine pending this morning) Assessment: 17 y.o. year old otherwise heatlhy postop day #1 after repeat deliveryat 37+4/7 weeks for gestational hypertension. Patient overall doing well . Postop HELLP labs pending this morning. Discussed contraceptive options in depth, patient would like mirena IUD. Other Medical Issues/Concerns: No evidence for PE on PE protocol CT; no further tachycardia Plan: ?? F/u HELLP labs ?? Continue routine care. ?? mirena IUD for contraception ?? /pumping for infant nutrition without concerns ?? Follow-up: 6 wk visit This patient was seen and discussed on rounds. Dereck Serna MD PGY3, pager [phone] Attending post - section note DON GLASS MD I reviewed the above note and discussed the patient at rounds with the team. I agree with the documented findings and plan of care, except as noted below. My evaluation: S: No complaints, pain well controled. O: Temp: [36.7 ??C (98.1 ??F)-37.4 ??C (99.3 ??F)] Heart Rate: [75-98] Resp: [16-18] BP: (121-148)/(76-101) SpO2: [97 %-100 %] Uterus: firm aprpopriately tender Abdomen: not distended. Dressing: clean dry intact Impression & Plan: stable POD 1 from repeat c/s secondary to breech presentation and worsening gestational hypertension, she is doing well. We will d/c her aldrich today and get her out of bed to ambulate. Remainder of plan as above. DON GLASS MD 07/21/2013 * Soledad Hale RN - 07/20/2013 8:25 PM EST 07/20/13 2020 Adult Vital Signs BP ! 146/101 mmHg Pt denies visual disturbance, denies headache, and denies RUQ abd pain. Reported above to Lorena Darby MD.No changes in POC at this time. * Sandra Szymanski RN - 07/20/2013 3:29 PM EST NICU Attendance of Delivery: Attended delivery this afternoon with Geovanna Cannon RT. Minnie Gonzalez APRN aware of delivery, and nearby if she had been needed. Infant crying initially. brought to warmer by BP team. Infant warmdried, and stimulated per NRP protocol. Infant required a little CPAP via mask, but transitioned nicely after a minute. APGARS were 7 and 9. Two off for color, one off for Respiratory effort at one mi nute. At 5 minutes one off for color. Infant voided in first few minutes of life as well. BP RN assumed care of infant at 8-9 minutes of life. * Don Glass MD - 07/20/2013 1:30 PM EST 07/20/13 1330 Nonstress Test, Fetus A Baseline Rate 130 bpm Variability 6-25 BPM Accelerations Present Decelerations None Contraction Frequency 3-6 Nonstress Test Interpretation Reactive, >32 weeks: two 15 bpm accelerations lasting 15 seconds Overall Impression Reassuring for gestational age NST Times NST Start Time 1300 I personally reviewed and interpreted this NST. * Nicole Borja RN - 07/20/2013 10:45 AM EST 1045: IV saline locked per MD for CT scan. MD at bedside. Plan of care discussed with patient and . 1055: Off unit via stretcher to CT accompanied by transport * Don Glass MD - 07/20/2013 2:21 AM EST Labor Progress Note 07/20/2013 2:21 AM ID: Shawn Spears is a 17 year old at 37 +4/7 wks, admitted for painful contractions and gestational HTN (BP 150s/90s on admission) in the setting of prior LTCS at 28 weeks for severe preeclampsia. Subjective: She reports feeling continued mild chest discomfort which occurs when she feels like her heart is racing. Uterine contractions improved after morphine/phenergan. She denies dyspnea or pleuritic pain. Objective Patient Vitals for the past 8 hrs: BP Temp Temp src Pulse Resp SpO2 Height Weight 07/20/13 0145 134/84 mmHg - - 106 18 99 % - - 07/20/13 0000 141/82 mmHg - - 115 18 - - - 07/19/13 2313 - - - - - - 162.6 cm (5' 4) 85.276 kg (188 lb) 07/19/13 2300 138/79 mmHg - - 100 18 - - - 07/19/13 2128 151/97 mmHg 36.9 ??C (98.4 ??F) Oral 124 18 99 % - - Pulse ox spO2 99% on room air, pulse 100s-140 Gen: appears comfortable Abd: soft, nontender, gravid EKG 12 lead: rate 143 BP, sinus tachycardia, t-wave inversion in V1; mild St segment depression in inferior leads. Assessment: Shawn Spears is a 17 year old at 37 +4/7 wks, admitted for painful contractions and gestational HTN (BP 150s/90s on admission) in the setting of prior LTCS at 28 weeks for severe preeclampsia. BP normal to mildly elevated since admission - mild borderline thrombocytopenia, but no other evidence of HELLP syndrome. Repeat 24 hour urine protein currently being collected. GBS negative. FHR reassuring. No cervical change on exam to suggest labor. Sinus tachycardia on EKG with nonspecific findings of t-wave inversion in V1 and ST depression in V6. Given chest discomfort and persistent tachycardia, this is concerning for PE; however no shortness of breath, oxygen desaturation, or pleuritic pain argues against this. Specific gravity on admission urine dip was 1.010 suggesting dehydration/hypovolemia is not etiology of tachycardia. - continuous pulse ox for monitoring, plan duplex LE this AM for PE workup if tachycardia persistent. CT PE protocol if duplex negative - intermittent FHR auscultation given no evidence of labor - repeat exam PRN - continue 24 hour urine collection for protein D/w Dr. Hadley, attending DERECK SERNA MD , PGY3 07/20/2013 Attending Progress Note DON GLASS MD I reviewed the above note and discussed the patient at rounds with the team. I agree with the documented findings and plan of care. My evaluation is as below: Subjective: States has CP while at rest last pm, now gone. Good FM, but delbert every 2-6 and are painful. Denies SOB. Denies QUESADA or visual changes. Objective: Temp: [36.9 ??C (98.4 ??F)] Heart Rate: [100-124] Resp: [18] BP: (129-151)/(62-97) SpO2: [97 %-99 %] ] OS Sat 96% while talking with me Abdomen: Soft, non-tender, not distended Uterus: Soft, Non-tender Extremities: trace edema NST: reactive for today, please see separate documentation. CT: Negative for PE Impression & Plan 37w4d IUP with an TYE of 08/06/2013, by Ultrasound, admitted with c/o elevated BP and contractions, ahd SOB concerning for PE with persistent tachycardia andhten had pulse ox of 96% while talking withme, so spiral CT obtained, which is negative. Bedside US shows breech. Given breech presentation and worsening gestational hypertension in the setting of regular contractions and prior c/s with plansto repeat the c/s, we will proceed with repeat LTCS. DON GLASS MD 07/20/2013 * Felecia Hadley MD - 07/20/2013 1:31 AM EST Labor Progress Note 07/20/2013 1:31 AM ID: Shawn Spears is a 17 year old at 37 +4/7 wks, admitted for painful contractions and gestational HTN (BP 150s/90s on admission) in the setting of prior LTCS at 28 weeks for severe preeclampsia. Subjective: She reports feeling continued painful contractions 8/10 intensity. She reports some chest discomfort when heart is racing, but no other complaints currently. Mild headache now resolved. Pt. Frustrated and desiring repeat c/s. Objective Patient Vitals for the past 8 hrs: BP Temp Temp src Pulse Resp SpO2 Height Weight 07/20/13 0000 141/82 mmHg - - 115 18 - - - 07/19/13 2313 - - - - - - 162.6 cm (5' 4) 85.276 kg (188 lb) 07/19/13 2300 138/79 mmHg - - 100 18 - - - 07/19/13 2128 151/97 mmHg 36.9 ??C (98.4 ??F) Oral 124 18 99 % - - Gen: appears comfortable SVE: Dilation: 0 Effacement: 25 Station: High -4, medium consistency, posterior (go 1) (no change from prior exam 3.5 hrs earlier) Uterus: nontender, contractions palpate moderate FHR: Baseline Rate: 130 bpm Variability: Moderate Accelerations: Present, no decels, contractions ~q3-4 mins on toco Bedside U/S: Breech presentation, normal GABINO (grossly) Assessment: Shawn Spears is a 17 year old at 37 +4/7 wks, admitted for painful contractions and gestational HTN (BP 150s/90s on admission) in the setting of prior LTCS at 28 weeks for severe preeclampsia. BP normal to mildly elevated since admission - mild borderline thrombocytopenia, but no other evidence of HELLP syndrome. Repeat 24 hour urine protein currently being collected. GBS negative. FHR cat 1. No cervical change on exam to suggest labor. Tachycardia intermittently likely related to pain w/contractions, though patient does report some chest discomfort when heart racing. Normal spO2 on room air and VS otherwise normal; - will check EKG for evaluation, give pepcid for?GERD and continue to monitor. If patient has oxygen desaturation or persistent tachycardia, consider PE workup (duplex LE, and PE protocol CT if duplex negative). Pt desires repeat LTCS - risks/benefits/alternatives of discussed with patient and consentsigned. Will plan continued expectant management and delivery at 39 weeks for gestational hypertension; if preeclampsia on 24 hr urine, deliver sooner - morphine/phenergan now for analgesia - ekg 12 lead now for evaluation of chest pain; continue to monitor and PE workup if new VS abnormality or pain persistent - intermittent FHR auscultation given no evidence of labor - repeat exam PRN - continue 24 hour urine collection for protein DERECK SERNA MD , PGY3 07/20/2013 * Veda Templeton RN - 07/20/2013 1:17 AM EST MD Sanjeev Serna in room to reevaluate for pt's status as well as consent for section. Breechpresentation verified by sono. SVE by MD Sanjeev Serna. * Veda Templeton RN - 07/19/2013 11:37 PM EST MD Boyer at bedside to evaluate pt and educate pt on anesthesia, if indicated. * Veda Templeton RN - 07/19/2013 10:22 PM EST Pt to be admitted for further evaluation at this time. IV placed, blood drawn, and LR bolus initiated per orders. * Veda Templeton RN - 07/19/2013 9:30 PM EST Pt arrived to triage room with c/o increasing discomfort with contractions that started approximately at 0900 and also for elevated blood pressures while at home. Pt resting in bed at this time. C/o consistent headache not relieved by tylenol, changes in vision or RUQ abdominal pain. Does c/o increased swelling to lower extremities since this Monday. Pt denies increased swelling to face or upperarms. Pt denies any flu-like symptoms, however, does c/o slight nausea which she attributes to not being able to eat since 1400 today. +2/+2 pitting edema to lower extremities. +1/+1 bilateral DTRs. Absent clonus bilaterally. Pt placed on EFM, vitals taken and oriented pt and FOB to room. Encouraged NPO status. documented in this encounter H&P Notes * Felecia Hadley MD - 07/20/2013 12:05 AM EST Obstetrical Term Admission Note Shawn Spears is a 17 y.o. year old female who is at 37w4d weeks gestation (by 8 wk sono, unsure LMP) who presents for evaluation of hypertension and painful contractions. complicated by: - prior LTCS at 28 weeks for severe preeclampsia, on ASA 81mg for prevention during this - rubella nonimmune status - gestational hypertension (BP 140s/90s-100s since 31 weeks, multiple 24 hour urine protein negative for preeclampsia) otherwise uncomplicated. Patient has noted painful contractions every 4-8 minutes today through the afternoon and took BP at home which was 170/90. She notes a mild (3/10 intensity) headache without vision change and states contractions are now every 2-3 minutes and painful, taking her breath away. She reports active movement, denies bleeding, loss of fluid, or RUQ pain. Review of Systems: 10 systems reviewed, otherwise negative Active Hospital Problems Diagnosis ??? Gestational hypertension Resolved Hospital Problems Diagnosis Date Resolved No resolved problems to display. Active Non-Hospital Problems Diagnosis ??? Rubella non-immune status, antepartum ??? Unspecified high-risk ??? Hx of preeclampsia, prior , currently ??? Previous delivery affecting Past Medical History Diagnosis Date ??? Hypertension only with preeclampsia Past Surgical History Procedure Date ??? section 2010 ??? Appendectomy 2008 OB History Grav Para Term Abortions TAB SAB Ect Mult Living 2 1 1 1 # Outc Date GA Lbr Eliceo/2nd Wgt Sex Del Anes PTL Lv 1 PRE 07/23 28w0d 0.794kg([id number]) M LTCS Spinal No Yes 2 CUR Prior to Admission Medications Prescriptions prior to admission Medication Sig Dispense Refill ??? gvemtcwktb-wikszxurclfih-munvigai (FIORICET, ESGIC) per tablet Take 2 tablets by mouth every 4 hours as needed for Pain. 10 tablet 0 ??? aspirin 81 mg chewable tablet Take 81 mg by mouth daily. 30 tablet 3 ? ? VITS W-CA,FE,FA,<1MG, ( VITAMIN ORAL) Allergies No Known Allergies No family history on file. Social History Occupational History ??? Not on file. Social History Main Topics ??? Smoking status: Never Smoker ??? Smokeless tobacco: Never Used ??? Alcohol Use: No ??? Drug Use: No ??? Sexually Active: Yes -- Male partner(s) Immunization History Immunization History Administered Date(s) Administered ??? Influenza Whole 02/10/2010 ??? Tdap 08/02/2010, 06/24/2013 Physical Exam Gen: appears well, in no acute distress Neuro: 2+ biceps, 2+ patellar DTRs, no clonus Cardiac: RRR, S1, S2, no rub/gallop/murmur Pulm: CTAB, no rales/wheeze/rhonchi Abd: soft, symmetric, gravid, nontender Uterus: nontender, unsure presentation by Zackary's, clinical EFW =7# Dilation: 0 (07/19/13 2203) Effacement: 25 Station: High -4 OB Examiner: MD Sanjeev Serna FHR Fetus A: Baseline Rate: 150 bpm (07/20/13 0000) Variability: Moderate Accelerations: Present Mode: External US Decelerations: None Contraction Frequency: 3-8 Lab Review Lab Results Component Value Date ABORH A Pos 07/19/2013 HCT 34.6 07/19/2013 HGB 11.7 07/19/2013 MCV 87.2 07/19/2013 HEPBSAG Negative 12/17/2012 RUBLIGG Negative* 12/17/2012 HIV12 Negative 12/17/2012 GCAMP Negative 12/25/2012 CHLMGENE Negative 12/25/2012 [id number] <0.19* 07/11/2013 AST 16 07/19/2013 No results found for this basename: GLUCDOSE, GLUCBASELINE, [id number], LABGLUC2, LABGLUC3, Lab Results Component Value Date GBSSCREEN Neg 07/11/2013 Recent Labs Basename 07/19/13 2200 WBC 11.9* HGB 11.7 HCT 34.6 PLATELET 153 Lab Results Component Value Date AST 16 07/19/2013 Lab Results Component Value Date CREATININE 0.65* 07/19/2013 Results for HSAWN SPEARS ( ) as of 07/20/2013 00:05 Ref. Range 07/19/2013 22:08 POC Sp [place] Latest Range: 1.002-1.030 1.010 POC pH, UA Latest Range: 5.0-8.5 7 POC Protein, UA Latest Range: Negative-Negative mg/dL trace POC Glucose, UA Latest Range: Normal-Normal mg/dL normal POC Ketone, UA Latest Range: Negative-Negative small POC Urobil, UA Latest Range: 0.2-1.0 mg/dL normal POC Bili, UA Latest Range: Negative-Negative negative POC Blood, UA Latest Range: Negative-Negative christy/uL negative POC Leuk, UA Latest Range: Negative-Negative negative POC Nitrite, UA Latest Range: Negative-Negative negative Most Recent Growth Ultrasound Date: 07/08/2013: Breech, anterior placenta, GABINO 12.6, EFW 6#6oz (75%ile) Assessment & Plan Shawn Spears is a 17 y.o. year old w/history of preeclampsia in prior w/prior LTCS admitted for painful contractions w/?early labor and gestational hypertension. HELLP labs w/borderline thrombocytopenia, platelets previously 200s during first trimester. No other evidence of HELLP syndrome and BP has remained in mildly elevated range since admission. Only trace proteinuria suggests gestational hypertension rather than preeclampsia. GBS negative. Patient desires elective repeat section. FHR cat 1. - admit for surveillance of preeclampsia vs. gestational hypertension - 24 hour urine protein collection - monitor BP closely - repeat exam in 4 hours; if patient makes progressive cervical change, will proceed with section - continuous FHR monitoring given painful contractions and prior c/s - repeat HELLP labs Q12h to follow platelets Patient discussed with Dr. Hadley, attending -DERECK SERNA MD, PGY3 07/20/2013 Attending note I saw and evaluated the patient with Dr Serna (resident physician.) I have reviewed the resident's history during the visit and I agree with the details as written. My physical examination confirmsand/or revises the resident's findings. The assessment and plan were formulated in discussion with me at the time of the visit and I agree with them as documented. Felecia Hadley MD documented in this encounter Miscellaneous Notes * Miscellaneous - Provider, Scanning - 07/25/2013 1:01 PM EST * Miscellaneous - Provider, Scanning - 07/23/2013 10:47 AM EST * Miscellaneous - Provider, Scanning - 07/23/2013 10:47 AM EST * Plan of Care - Dena Sun RN - 07/22/2013 1:51 AM EST Problem: Pain, Acute (Adult, Obstetric) Intervention: Acute Pain: Signs and Symptoms Pt taking PO PRN pain medication, encouraged to take more consistently by this RN as pt's pain was escalating, pt now taking Ibuprofen in addition to Oxycodone, pt reports improved comfort, will contto monitor Problem: Following Section Delivery (Adult, Obstetric) Intervention: Venous Thromboembolism Prevention Pt OOB independently, tolerating well, active ROM, will cont to monitor * L&D Delivery Note - Don Glass MD - 07/20/2013 5:24 PM EST The patient is a 17 yo at 37 + 4/7 wga who presented for repeat section in settingof worsening gestational hypertension, breech presentation and prior section. She underwent an uncomplicated repeat section. Delivered a live born male , weight 3270g, and APGARs 7/9. EBL 800cc. Please see operative report for further details. I was present for the delivery and agree with the events as documented below. DON GLASS MD Cord gases: Art ph 7.29/PCO2 59/PO2/Base Excess -4.6 Nito ph 7.29/PCO2 55/PO2 17/Base Excess -1.1 Information for the patient's : (Baby 1) DELIVERY SUMMARY FOR [Baby information not available] (please note there is a separate summary for each fetus) LABOR EVENTS [Baby information not available] Labor Onset Type: section without labor Labor Onset Date: Induction: Indications for Induction of Labor: Induction Methods: Augmentation: None Complications: Rupture Date: 07/20/2013 Rupture Time: 2:36 PM Rupture Type: Artificial Fluid Color: Clear DELIVERY EVENTS [Baby information not available] Delivery Type: Delivery Type (Specific): Presentation/Position [Baby information not available] : Breech Failed Operative Delivery: Anesthesia Method :Spinal [252] Analgesic: Episiotomy: None Lacerations: None Comments: Repair Suture: None Repair # of Packets: Blood Loss (ml): 800 Placenta: Delivered: 07/20/2013 2:42 PM Removal: Manual Removal Appearance: Intact Comment: Maternal Procedures with Delivery: Attempted ?: INFORMATION [Baby information not available] 07/20/2013 2:39 PM by Sex: male Gestational Age: 37.6 weeks. Measurements: Weight: 7 lb 3.3 oz (3270 g) Height: 22.05 Head Circumference: 35.5 cm ChestCircumference: Observed Anomalies: Delivery Clinician: Jasmine Peralta Other Providers: Delivery Assist Delivery Nurse Gate Agent Resident Resident [employer] Macey DAS Staff Present: yes Delivery Location: OR Living?: Yes APGARS One Minute Five Minutes Ten Minutes Skin Color: 0 1 Heart Rate: 2 2 Grimace: 2 2 Muscle Tone: 2 2 Breathin 2 Totals: 7 9 INTERVENTIONS [Baby information not available] Resuscitation:Suctioning Suctioning Method: Suctioning [2] Vocal Cords Visualized: Meconium: Resuscitation Comment: [place] Medications: [place] Meds Given: vitamin K erythromycin Naloxone Given?: no Amount (mg): Injection Site: Cord Information: 3 Vessels Disposition of Cord Blood: Lab Blood Gases Sent? Yes Cord Insertion: normal Cord Complications: None [1] Cord Comment: LABOR LENGTH 1st Stage (hrs/min): 2nd Stage (hrs/min): 3rd Stage (hrs/min);0.00 3.00 ADDITIONAL DELIVERY DETAILS DELIVERY Major Indications-: Contributing Factors-: Delivery Comment: Uterine Scar Status if Prior Section: ADDITIONAL DELIVERY DETAILS VAGINAL DELIVERY Major Indications-Operative Delivery: Contributing Factors-Operative Vaginal: Rotation: Total Number of Pulls: Total Time Forceps Applied: Forceps: Forceps Type: Total Time Vacuum Applied: Number of Popoffs: Vacuum: Breech: Nuchal Arm: RUPTURE OF MEMBRANES FETUS B-E * Miscellaneous - Provider, Scanning - 07/20/2013 4:57 PM EST * Op Note - Jasmine Peralta - 07/20/2013 4:14 PM EST [facility] Operative Note Patient Name: Shawn Spears : [id number] MR#: [id number] Case Date: 07/20/2013 Surgeon: Surgeon(s) and Role: * Don Glass MD - Primary * Jasmine Peralta MD - Resident-Surgeon Eulogio * Ric Darby MD - Resident-Surgeon Chief Preoperative diagnosis: 1. Gestational hypertension. 2. Prior . 3. Malpresentation. 4. IUP at 37w4d gestation. Postoperative diagnosis: Same, delivered. Procedure(s): Repeat section. Findings: Liveborn male in complete breech presentation with APGARS of 7, 9. Weight of 3270g. Clear fluid. Normal uterus, tubes and ovaries. Anesthesia: Spinal Estimated Blood Loss: 800cc Fluids: 2L crystalloid Drains: Aldrich catheter draining clear yellow urine, left in place after procedure Disposition: regional anesthesia adiminstered without incident Condition: doing well without problems (Please see the Surgical Encounter Summary for any Implant and Specimen details pertinent to this patient.) HPI/ Indications for Procedure: Shawn Spears is a 17 y.o. who was admitted with gestational hypertension. She had tachycardia and chest pain and had a negative CT scan for PE. The decision was made to proceed with repeat delivery at 37w4d gestation in the setting of worsening hypertension, malpresentation and a prior c/s. The risks, benefits and alternatives were discussed including bleeding, infection and damage to surrounding structures (bowel, bladder, uterus, tubes, ovaries, ureters, blood vessels or nerves). The procedure was reviewed in detail with the patient, who had the opportunity to ask questions, all of which were answered. Consent was obtained. Procedure Description: The patient was confirmed complete breech by bedside ultrasound. She was taken to the Operating Room where spinal anesthesia was administered and found to be adequate. The patient was given 2 gm of Ancef. The patient was placed in the dorsal supine position with a leftward tilt. The patient was then prepped and draped in the usual sterile fashion. A timeout was performed with all parties in agreement. After spinal anesthesia was confirmed adequate, a Pfannenstiel skin incision was made with a scalpel and her previous scar was excised. The incision was carried through to the underlying layer of fascia with the Bovie and blunt dissection. The fascia was nicked in the midline and the incision was extended laterally with the curved Coronado scissors. The superior aspect of the fascial incision was then grasped with Twyla clamps, elevated, and the rectus muscle was dissected off with the Bovie. Attention was then turned to the inferior aspect of the fascial incision, which in a similar fashion wasgrasped with Twyla clamps, elevated and the underlying rectus and pyramidalis muscles were dissected using Coronado scissors down to the level of the pubic symphsis. The rectus muscles were then in the midline and the peritoneum identified and entered digitally. The peritoneal incision was entered digitally to the bladder reflection and a bladder flap was created. The bladder blade was inserted. The lower uterine segment was incised in a transverse fashion with a scalpel. The hysterotomy was extended manually with upward and downward traction. A hand was inserted into the uterus and the bladder blade was then removed. A liveborn male was delivered using the usual breech maneuvers. The cord was doubly clamped and cut. The infant was handed off to the awaiting pediatricians, who assigned Apgars of 7 and 9. Cord gases were sent. Oxytocin was initiated to facilitate uterine contractions. The placenta was expressed. The uterus was exteriorized and was cleared of all clots and debris. The uterine incision was repaired with 0 vicryl in a continuous locked fashion. A second layer of the same suture was used to imbricate the first layer. Excellent hemostasis was appreciated. Examinationof the pelvis revealed normal uterus, tubes and ovaries. The gutters were cleared of all clots and debris with a dry lap. The hysterotomy and the bladder flap were checked again and found to be hemostatic. The fascia was reapproximated with 0-vicryl in a running fashion. The subcutaneous space was well irrigated. The subcuticular space was loosely reapproximated with 2-0 plain gut suture in a running fashion. Hemostasis was obtained using the Bovie. The skin was closed with subcuticular suturesand steri-strips were applied. Sterile dressings were applied over the incision. The vagina was cleared of all clots. The patient and infant tolerated the procedure well and were in satisfactory condition at its conclusion. Sponge, lap and needle counts were correct times two at case close. The patient was taken back to her room in stable condition. Dr. Glass was present and participated for the entire procedure without any conflicting clinical responsibilities. JASMINE PERALTA MD PGY2 07/20/2013 * OR Attestation - Don Glass MD - 07/20/2013 4:03 PM EST Attestation: Case Date: 07/20/2013 I was present and I participated during the entire procedure (does not need to include opening and closing). DON GLASS MD 07/20/2013 * Brief Op Note - Don Glass MD - 07/20/2013 4:02 PM EST Brief Operative Note Patient Name: Shawn Spears : [id number] MR#: [id number] Case Date: 07/20/2013 Surgeon: Surgeon(s) and Role: * Don Glass MD - Primary * Jasmine Peralta MD - Resident-Surgeon Eulogio * Ric Darby MD - Resident-Surgeon Chief Preoperative diagnosis: GEST HTN; R C/S; MALPRESENTATION Postoperative diagnosis: C/Section Procedure(s): @ DELIVERY Anesthesia: Spinal Findings: viable inant Complications: none Fluids: 2L Estimated Blood Loss: 800 Drains: ALDRICH Disposition: regional anesthesia adiminstered without incident Condition: doing well without problems (Please see the Surgical Encounter Summary for any Implant and Specimen details pertinent to this patient.) * Brief Op Note - Ric Darby MD - 07/20/2013 3:56 PM EST Brief Operative Note Patient Name: Shawn Spears : [id number] MR#: [id number] Case Date: 07/20/2013 Surgeon: Surgeon(s) and Role: * Don Glass MD - Primary * Jasmine Peralta MD - Resident-Surgeon Eulogio * Ric Darby MD - Resident-Surgeon Chief Preoperative diagnosis: GEST HTN; R C/S; MALPRESENTATION Postoperative diagnosis: C/Section Procedure(s): Primary low transverse section Anesthesia: Spinal Findings: Viable male infant in complete breech presentation. Normal uterus, fallopian tubes and ovaries. Complications: None Fluids: 2000 cc Lactated Ringers Estimated Blood Loss: 800 cc Drains: Aldrich Disposition: regional anesthesia adiminstered without incident Condition: doing well without problems (Please see the Surgical Encounter Summary for any Implant and Specimen details pertinent to this patient.) * Discharge Summary - Dereck Serna MD - 07/20/2013 2:38 AM EST Discharge Summary Antepartum Patient Name: Shawn Spears Patient Age: 17 y.o. Birthdate: 1995 Admit date: 07/20/2013 Discharge date and time: 07/22/2013 Attending Physician: Corrina att. providers found Care Provider: [facility] Discharge Diagnoses (Hospital Problems) and Secondary Diagnoses (Chronic Problems): Active Hospital Problems Diagnosis ??? Tachycardia ??? Gestational hypertension Resolved Hospital Problems Diagnosis Date Resolved No resolved problems to display. Active Non-Hospital Problems Diagnosis ??? Tachycardia ??? Gestational hypertension ??? Rubella non-immune status, antepartum ??? Unspecified high-risk ??? Hx of preeclampsia, prior , currently ??? Previous delivery affecting Operations/Major Procedures: Primary Admission History (per admit note cut and paste) Shawn Spears is a 17 y.o. year old female who is at 37w4d weeks gestation (by 8 wk sono, unsure LMP) who presents for evaluation of hypertension and painful contractions. complicated by: - prior LTCS at 28 weeks for severe preeclampsia, on ASA 81mg for prevention during this - rubella nonimmune status - gestational hypertension (BP 140s/90s-100s since 31 weeks, multiple 24 hour urine protein negative for preeclampsia) otherwise uncomplicated. Patient has noted painful contractions every 4-8 minutes today through the afternoon and took BP at home which was 170/90. She notes a mild (3/10 intensity) headache without vision change and states contractions are now every 2-3 minutes and painful, taking her breath away. She reports active movement, denies bleeding, loss of fluid, or RUQ pain Hospital Course: The patient is a 17 yo at 37 + 4/7 wga who presented for repeat section in settingof worsening gestational hypertension, breech presentation and prior section. She underwent an uncomplicated repeat section. Delivered a live born male infant, weight 3270g, and APGARs 7/9. EBL 800cc. Please see operative report for further details. Patient had period of tachycardia with SOB following her delivery. PE was was considered as possible cause. Subsequet PE CT scan was reassuring, and SOB was likely related to her post operative Hgb of 7.9. Postop HELLP labs were reassuring, with platelets trending upwards and within normal limits creatinine and AST. Hgb trended upwards. Prior to discharge patient was asymptomatic from anemia perspective with no lightheadedness, pallor, or SOB. Patient continued to be stable, tolerating foods, urinating without problem, + BM, and with pain well controlled. Patient desired IUD for contraception. Patient plans to bottle feed with formula. Will follow up in 6 weeks for routine visit. GBS status: Lab Results Component Value Date GBSSCREEN Neg 07/11/2013 Recent Labs Basename 07/22/13 0746 07/21/13 0751 07/19/13 2200 WBC 8.0 6.8 11.9* HGB 9.6* 7.9* 11.7 HCT 28.1* 23.3* 34.6 PLATELET 129* 96* 153 Results for SHAWN SPEARS ( ) as of 07/23/2013 10:17 Ref. Range 07/11/2013 06:00 07/11/2013 17:36 07/19/2013 22:00 07/21/2013 07:51 07/22/2013 07:46 Creatinine Latest Range: 0.70-1.20 mg/dL 0.62 (L) 0.69 (L) 0.65 (L) 0.54 (L) 0.68 (L) Estimated GFR Latest Range: >=60 >60 >60 >60 >60 >60 AST Latest Range: 5-30 unit/L 13 11 16 11 11 Cervix at discharge: Dilation: Dilation: 0 Effacement: Effacement: 25 Station: Station: [facility] -4 Important Studies and Lab Data: US Summary: Date 07/08, Findings: Single intrauterine with a gestational age of [...] are noted. NOTE THIS FETUS IS BREECH Additional Studies: CT neg for PE No results found for this or any previous visit (from the past 24 hour(s)). Discharge Conditions/Prognosis: Stable Discharge to: Home Discharge Medications: Your Medications As of 07/23/2013 10:17 AM Notice Some of the medications listed here do not show instructions, such as how often to take the medication. Ask your doctor or nurse how to use these medications. New Medications Dose Details docusate sodium 100 mg capsule Commonly known as: COLACE Take 1 capsule by mouth 2 times daily for 10 days. 100 mg Quantity: 10 capsule Refills: 2 oxyCODONE 5 mg immediate release tablet Commonly known as: ROXICODONE Take 1-2 tablets by mouth every 4 hours as needed for Pain. 5-10 mg Quantity: 30 tablet Refills: 0 Continued medications, unchanged Dose Details aspirin 81 mg chewable tablet Take 81 mg by mouth daily. 81 mg Quantity: 30 tablet Refills: 3 imfcurbxcg-jjtntxynafwvd-lonnfiet per tablet Commonly known as: FIORICET, ESGIC Take 2 tablets by mouth every 4 hours as needed for Pain. 2 tablet Quantity: 10 tablet Refills: 0 VITAMIN ORAL (Ask your doctor or nurse how to take this medication.) Refills: 0 Updated Allergies/ADRs: No Known Allergies Ordered for After Discharge: No discharge procedures on file. Follow-up Recommendations for Providers: Commence routine care, follow-up BP measurements, MMR vaccine Instructions Given to Patient at Discharge: Provider Instructions None General Instructions Nursing Inpatient Progress C - Section Follow-up Follow-ups: Please schedule a follow up with your primary OB provider. Immunizations Received: [ ] MMR [ ] Tdap [ ] Inactivated Influenza Vaccine [ ] Other: Medications Received: [ ] Rhogam Given: (time/date) [ ] Depoprovera Given: (time/date) [ ] Other: Referrals: Additional Instructions: Maternal Discharge Instructions Rest: Although it may seem impossible to get enough rest, simple planning will help. Try to get at least one four hour block of uninterrupted sleep in 24 hours; then plan to rest, and/or sleep when your baby does. Limiting visitors also helps. Fathers and other family members can help by doing housework, caring for other children and/or helping limit visitors. Activity: After delivery, it is safe to climb stairs at home. Do not lift anything heavierthan your baby for two weeks. Do not drive for two weeks or while taking pain medicine that contains a narcotic as your reaction time may be decreased. Nutrition: Your diet following the of your baby is as important as it was before the baby wasborn. Drink a minimum of 6-8 glasses a day. Do not attempt to lose weight during the first six weeks. Continue taking your vitamins until they are gone. Lochia: (Flow) Your flow should be no heavier than a normal period. It will be bright red for 2-3 days and then pinkish and finally colorless. If your flow becomes bright red again, decrease your activity. Do not use tampons until your care provider advises you it is OK. Incision: Wash the incision with soap and water and pat dry. It is normal to have clear or pinkish fluid seep from the incision. Gauze pads or sanitary napkins may help to keep the incision dry if itis located in a fold under your tummy. If the incision has more redness, yellow drainage, or becomes more painful, contact the obstetrics clinic. Breast Care for Formula feeding mothers: Wear a well fitting bra to support your breasts. Ice packsto your breasts and Tylenol or Ibuprofen may be used to relieve discomfort from engorgement. Avoid stimulating your breasts: Do not let warm water from the shower fall on them; avoid holding your baby near your breasts until your milk begins to decrease and engorgement is relieved. Breast feeding mothers: Practice careful positioning and frequent feeding as demonstrated in the hospital. The printed information in your packet covers this in detail. Call your doctor or psych specialist for: Fever more than 100.5 Heavy bleeding that saturates a pad an hour Clots larger than a plum Increased abdominal pain, nausea, shaking chills Increased redness or soreness over your incision Breast with hot, hard, tender areas on the breast plus flu-like symptom depression occurs in a large percentage of women. We encourage you to contact your provider or a member of the nursing staff if you are feeling so overwhelmed that you are unable to care for yourself or your baby. Keep your follow up appointment. You may call the [facility] at any time for guidance or for answers to questions that come up prior to you follow up appointment. Your [facility] Provider can be reached during office hours at [facility] AFTER OFFICE HOURS for the motor vehicle inspector or psych specialist pond worker Provider electronic signature confirms that discharge instructions were reviewed with the patient. A copy was printed and given to the patient. Discharge References/Attachments: Discharge References/Attachments None Inpatient Provider Contact Information: OB service, Electronically Signed by: DERECK SERNA MD 07/23/2013 * Plan of Care - Veda Templeton RN - 07/20/2013 1:50 AM EST Problem: High-Risk/Critically Ill OB (Adult, Obstetric) Intervention: Hemodynamic Stabilization (Obstetric) Pt c/o chest pain that she associates with her feelings of my heart beating really fast. Vitals taken, and tachycardia is consistent with other vitals taken since admission. MD Sanjeev Serna notified.Pt to have EKG ordered. * Plan of Care - Veda Templeton RN - 07/19/2013 11:38 PM EST Problem: Pain, Acute (Adult, Obstetric) Intervention: Acute Pain: Signs and Symptoms Pt continues to c/o back pain. Heating pad ordered and set at 42 degrees. Will assess for comfort level following start. Pt expressing slight relief from backpain with use of heating pad. * Plan of Care - Veda Templeton RN - 07/19/2013 11:37 PM EST Problem: High-Risk/Critically Ill OB (Adult, Obstetric) Intervention: Seizure Precautions MD Sanjeev Serna notified of reduction in blood pressure. documented in this encounter Plan of Treatment Not on file documented as of this encounter Procedures Procedure Name Priority Date/Time Associated Diagnosis Comments DIFFERENTIAL, AUTOMATED Routine 07/22/19 14 7:46 AM EST CREATININE Routine 07/22/2013 7:46 AM EST CBC (WITH DIFF) Routine 07/22/2013 7:46 AM EST ASPARTATE AMINOTRANSFERASE Routine 07/22/2013 7:46 AM EST SCAN, PERIPHERAL BLOOD Routine 4 7:51 AM EST DIFFERENTIAL, AUTOMATED Routine 07/21/19 14 7:51 AM EST CREATININE Routine 07/21/2013 7:51 AM EST CBC (WITH DIFF) Routine 07/21/2013 7:51 AM EST ASPARTATE AMINOTRANSFERASE Routine 07/21/2013 7:51 AM EST SPECIMEN TO PATHOLOGY (NON-OR) Routine 07/20/2013 4:36 PM EST SURGICAL PATHOLOGY REPORT Routine 07/20/2013 4:36 PM EST @ DELIVERY (WRVU 16.13) 07/20/2013 1:50 PM EST C/Section CT CHEST PULMONARY EMBOLISM W CONTRAST STAT 07/20/2013 11:28 AM EST EKG 12-LEAD STAT 07/20/2013 2:08 AM EST Tachycardia POCT URINE DIPSTICK Routine 07/19/2013 1 0:08 PM EST DIFFERENTIAL, AUTOMATED STAT 07/19/19 14 10:00 PM EST CREATININE STAT 07/19/2013 10:00 PM EST ABO/RH TYPING STAT 07/19/2013 10:00 PM EST CBC (WITH DIFF) STAT 07/19/2013 10:00 PM EST ANTIBODY SCREEN STAT 07/19/2013 10:00 PM EST TYPE AND SCREEN ([facility]/ANGELA) STAT 07/19/2013 10:00 PM EST ASPARTATE AMINOTRANSFERASE STAT 07/19/2013 10:00 PM EST documented in this encounter Results * (ABNORMAL) Differential, Automated (07/22/2013 7:46 AM EST) Neutrophil % 75.0(H) 34.0 - 71.0 % CERNER MILLENNIUM Neutrophil Absolute 5.98 1.50 - 6.30 x10(3)/mc L CERNER MILLENNIUM Lymph % 16.1(L) 19.0 - 53.0 % CERNER MILLENNIUM Lymphocytes Abs 1.3 1.0 - 3.6 x10(3)/mc L CERNER MILLENNIUM Monocyte % 6.5 4.0 - 13.0 % CERNER MILLENNIUM Monocyte Abs 0.5 0.2 - 1.0 x10(3)/mc L CERNER MILLENNIUM Eos % 1.8 0.0 - 7.0 % CERNER MILLENNIUM Eosinophils Abs 0.1 0.0 - 0.5 x10(3)/mc L CERNER MILLENNIUM Basophil % 0.1 0.0 - 2.0 % CERNER MILLENNIUM Baso Absolute 0.0 0.0 - 0.2 x10(3)/mc L CERNER MILLENNIUM Immature Gran % 0.50 0.00 - 0.66 % CERNER MILLENNIUM Comment: Immature granulocytes(IG's)percentage and absolute count will include metamyelocytes, myelocytes, and promyelocytes. Blood smears from CBCs yielding IG's will be scanned manually for concordance. If this scan disagrees with the automated IG or if promyelocytes are noted, a manual differential will be performed. Immature Gran Absolute 0.04 0.00 - 0.05 x10(3)/mc L CERNER MILLENNIUM Blood specimen (specimen) 07/22/2013 7:46 AM EST 07/22/2013 7:49 AM EST Felecia Hadley MD HEMATOLOGY ORDERABLE S Performing Organization Address [facility] de Phone Number [facility] * (ABNORMAL) Creatinine (07/22/2013 7:46 AM EST) Creatinine 0.68(L) 0.70 - 1.20 mg/dL [facility] Comment: Please note that the pediatric reference intervals supplied above were not validated at [facility]. Results from pediatric patients should be interpreted in conjunction to the patient's age, height and muscle mass. Est Glomerular Filtration Rate >60 >=60 [facility] Comment: This estimated GFR (eGFR) value was calculated using the MDRD equation which has been validated on patients between the ages of 18 and 70. The MDRD should not be used to assess kidney function in patients < 18 years of age or in patients with extremes of body mass, or in patients with acute kidney failure. This value should be multiplied by 1.2 for patients. For further information please copy and paste the following links into your internet browser. http://www.nkdep.nih.gov/lab-evaluation.shtml http://www.kidney.org/professionals/ Blood specimen (specimen) 07/22/2013 7:46 AM EST 07/22/2013 7:49 AM EST Narrative Resulting Agency Comment Spec In Lab Felecia Hadley MD CHEMISTRY ORDERABLES Performing Organization Address [facility] de Phone Number [facility] * Aspartate Aminotransferase (07/22/2013 7:46 AM EST) Aspartate Aminotransferase 11 5 - 30 unit/L [facility] Blood specimen (specimen) 07/22/2013 7:46 AM EST 07/22/2013 7:49 AM EST Narrative Resulting Agency Comment Spec In Lab Felecia Hadley MD CHEMISTRY ORDERABLES Performing Organization Address [facility] Co de Phone Number [facility] * (ABNORMAL) CBC (with Diff) (07/22/2013 7:46 AM EST) White Blood Cell 8.0 4.0 - 10.0 x10(3)/mc L CERNER MILLENNIUM Red Blood Cell 3.17(L) 3.93 - 5.22 x10(6)/mc L CERNER MILLENNIUM Hemoglobin 9.6(L) 11.2 - 15.7 gm/dL CERNER MILLENNIUM Hematocrit 28.1(L) 34.0 - 45.0 % CERNER MILLENNIUM Mean Cell Volume 88.6 79.0 - 94.0 fL CERNER MILLENNIUM Mean Cell Hemoglobin 30.3 26.6 - 32.2 pg CERNER MILLENNIUM Mean Cell Hemoglobin Concentration 34.2 32.0 - 36.5 gm/dL CERNER MILLENNIUM Platelet 129(L) 145 - 370 x10(3)/mc L CERNER MILLENNIUM RDW Standard Deviation 42.7 35.0 - 46.0 fL CERNER MILLENNIUM RDW coefficient of variation 13.3 10.9 - 14.4 % CERNER MILLENNIUM Mean Platelet Volume 11.7 9.0 - 12.0 fL CERNER MILLENNIUM Blood specimen (specimen) 07/22/2013 7:46 AM EST 07/22/2013 7:49 AM EST Narrative Resulting Agency Comment Spec In Lab Felecia Hadley MD HEMATOLOGY ORDERABLE S [facility] * (ABNORMAL) Differential, Automated (07/21/2013 7:51 AM EST) Neutrophil % 77.0(H) 34.0 - 71.0 % CERNER MILLENNIUM Neutrophil Absolute 5.24 1.50 - 6.30 x10(3)/mc L CERNER MILLENNIUM Lymph % 13.7(L) 19.0 - 53.0 % CERNER MILLENNIUM Lymphocytes Abs 0.9(L) 1.0 - 3.6 x10(3)/mc L CERNER MILLENNIUM Monocyte % 7.8 4.0 - 13.0 % CERNER MILLENNIUM Monocyte Abs 0.5 0.2 - 1.0 x10(3)/mc L CERNER MILLENNIUM Eos % 1.2 0.0 - 7.0 % CERNER MILLENNIUM Eosinophils Abs 0.1 0.0 - 0.5 x10(3)/mc L CERNER MILLENNIUM Basophil % 0.0 0.0 - 2.0 % CERNER MILLENNIUM Baso Absolute 0.0 0.0 - 0.2 x10(3)/mc L CERNER MILLENNIUM Immature Gran % 0.30 0.00 - 0.66 % CERNER MILLENNIUM Comment: Immature granulocytes(IG's)percentage and absolute count will include metamyelocytes, myelocytes, and promyelocytes. Blood smears from CBCs yielding IG's will be scanned manually for concordance. If this scan disagrees with the automated IG or if promyelocytes are noted, a manual differential will be performed. Immature Gran Absolute 0.02 0.00 - 0.05 x10(3)/mc L CERNER MILLENNIUM Blood specimen (specimen) 07/21/2013 7:51 AM EST 07/21/2013 7:51 AM EST Felecia Hadley MD HEMATOLOGY ORDERABLE S Performing Organization Address City/[facility]/ZIP Co de Phone Number [facility] * Scan, Peripheral Blood (07/21/2013 7:51 AM EST) Plat estimate Decreased CERNER MILLENNIUM RBC Morphology Normal CERNE R MILLENNIUM Plat, Giant Less than 1 /HPF CERNER MILLENNIUM Blood specimen (specimen) 07/21/2013 7:51 AM EST 07/21/2013 7:51 AM EST Narrative Resulting Agency Comment Spec In Lab Felecia Hadley MD HEMATOLOGY ORDERABLE S [facility] * (ABNORMAL) Creatinine (07/21/2013 7:51 AM EST) Creatinine 0.54(L) 0.70 - 1.20 mg/dL CERNER MILLENNIUM Comment: Please note that the pediatric reference intervals supplied above were not validated at [facility]. Results from pediatric patients should be interpreted in conjunction to the patient's age, height and muscle mass. Est Glomerular Filtration Rate >60 >=60 CERNER MILLENNIUM Comment: This estimated GFR (eGFR) value was calculated using the MDRD equation which has been validated on patients between the ages of 18 and 70. The MDRD should not be used to assess kidney function in patients < 18 years of age or in patients with extremes of body mass, or in patients with acute kidney failure. This value should be multiplied by 1.2 for patients. For further information please copy and paste the following links into your internet browser. http://www.nkdep.nih.gov/lab-evaluation.shtml http://www.kidney.org/professionals/ Blood specimen (specimen) 07/21/2013 7:51 AM EST 07/21/2013 7:51 AM EST Narrative Resulting Agency Comment Spec In Lab Felecia Hadley MD CHEMISTRY ORDERABLES Performing Organization Address [facility] de Phone Number CERLISBETH VALDEZENNIUM * Aspartate Aminotransferase (07/21/2013 7:51 AM EST) Aspartate Aminotransferase 11 5 - 30 unit/L CERNER MILLENNIUM Blood specimen (specimen) 07/21/2013 7:51 AM EST 07/21/2013 7:51 AM EST Narrative Resulting Agency Comment Spec In Lab Felecia Hadley MD CHEMISTRY ORDERABLES Performing Organization Address [facility] de Phone Number CERLISBETH MILLENNIUM * (ABNORMAL) CBC (with Diff) (07/21/2013 7:51 AM EST) White Blood Cell 6.8 4.0 - 10.0 x10(3)/mc L CERNER MILLENNIUM Red Blood Cell 2.65(L) 3.93 - 5.22 x10(6)/mc L CERNER MILLENNIUM Hemoglobin 7.9(L) 11.2 - 15.7 gm/dL CERNER MILLENNIUM Comment: Called by: NIKITA, Read back by: HUI LAPLANT BP, Date-Time: 07-21-13 0826. Hematocrit 23.3(L) 34.0 - 45.0 % CERNER MILLENNIUM Mean Cell Volume 87.9 79.0 - 94.0 fL CERNER MILLENNIUM Mean Cell Hemoglobin 29.8 26.6 - 32.2 pg CERNER MILLENNIUM Mean Cell Hemoglobin Concentration 33.9 32.0 - 36.5 gm/dL CERNER MILLENNIUM Platelet 96(L) 145 - 370 x10(3)/mc L CERNER MILLENNIUM RDW Standard Deviation 42.4 35.0 - 46.0 fL CERNER MILLENNIUM RDW coefficient of variation 13.1 10.9 - 14.4 % CERNER MILLENNIUM Mean Platelet Volume 11.8 9.0 - 12.0 fL CERNER MILLENNIUM Blood specimen (specimen) 07/21/2013 7:51 AM EST 07/21/2013 7:51 AM EST Narrative Resulting Agency Comment Spec In Lab Felecia Hadley MD HEMATOLOGY ORDERABLE S [facility] VALDEZENNIUM * Surgical Pathology Report (07/20/2013 4:36 PM EST) Final Diagnosis ? [facility] ? Provider: ?? RIC DARBY ?Pt. Name: ?? SHAWN SPEARS ? Acc #: ?[id number] ?Pt. ? Col Date: ?? 07/20/2013 ?/Sex: ?1995,(17 years),Female ? Rec Date: ?? 07/22/2013 ? LOC: ?BP ? SURGICAL PATHOLOGY ? ---Pathologic Diagnosis--- ? Third trimester placenta, cord and membranes: ? Negative for chorioamnionitis or funisitis. ? CR-0 ? 07/26/13 ? KO ? 07/26/13 Verified by: ? Maggie Villafuerte MD ? Pathologist ? (Electronic Signature) ? The attending pathologist whose signature appears on this report has ? reviewed all diagnostic slides and has edited the gross and/or ? microscopic portion of the report in rendering the final pathologic ? diagnosis. ? ---Gross Description--- ? A - Labeled/Fixative: Placenta, fresh. ? Qty/Size/Weight: Single, 18.4 x 15.7 x 2.2 cm, trimmed wt 493 g. ? Tissue Description: Intact montero placenta. ? Membranes: Smooth, glistening, semi-translucent and max-pink with marginal ? insertion. ? Cord: 41.3 x 1.0 cm; three vessels; eccentric insertion without abnormal ? spiraling. ? Surface: Blue-white, smooth, glistening with prominent vasculature. ? Maternal Surface: Intact and complete with loosely adherent clot and few ? scattered calcifications. ? Parenchyma: Homogeneously beefy red without gross lesions. ? Sections/Processing : (1) membrane roll; (2) proximal and distal cord; (3) ? surface; (4) maternal surface. (R4) ??apm ? ---Clinical Information--- ? Specimen Submitted: ? A - Placenta ? Clinical History: ? Gestational HTN, maternal tachycardia and EKG changes ? Clinical Diagnosis: ? Same 07/26/2013 10:17 AM EST [facility] TISSUE SPECIMEN FROM PLACENTA / Unknown 07/20/2013 4:36 PM EST 07/20/2013 4:36 PM EST Ric Darby MD PATHOLOGY/CYTOLOGY O RDRAJ[place] [address] * Specimen to Pathology (NON-OR) (07/20/2013 4:36 PM EST) AP Specimen 07/20/2013 4:36 PM EST 07/20/2013 4:36 PM EST Narrative [facility] - 07/20/2013 4:36 PM EST Specimen requisition ordered. ??Separate Pathology report to follow Felecia Hadley MD PATHOLOGY/CYTOLOGY O ROSS Performing Organization Address City/[facility]/ZIP Co de Phone Number [facility] * CT chest pulmonary embolism with contrast (07/20/2013 11:28 AM EST) Anatomical Region Laterality Modality Chest Computed Tomogra phy 07/20/2013 11:2 8 AM EST Narrative 07/20/2013 12:[address] Chest for Pulmonary Embolus With Contrast Clinical History tachycardia, chest pain in , ?PE ??tn Comparison None Technique 2.5 mm transaxial slices obtained through the thorax after intravenous injection of 95 mL Omnipaque 350. ??The patient 57 weeks and the abdomen was shielded with a dosimeter placed on the abdomen. Findings No evidence of pulmonary emboli. ??The lungs are clear. ??No pleural effusions or pneumothorax. Impression Normal chest CT. ??No evidence pulmonary embolus. Procedure Note Glory Shaikh MD - 07/20/[address] Chest for Pulmonary Embolus With Contrast Clinical History tachycardia, chest pain in , ?PE tn Comparison None Technique 2.5 mm transaxial slices obtained through the thorax after intravenous injection of 95 mL Omnipaque 350. The patient 57 weeks and the abdomen was shielded with a dosimeter placed on the abdomen. Findings No evidence of pulmonary emboli. The lungs are clear. No pleuraleffusions or pneumothorax. Impression Normal chest CT. No evidence pulmonary embolus. Felecia Hadley MD IMG CT ORDERABLES * EKG 12 Lead (07/20/2013 2:08 AM EST) Pathologist [facility] [place] Ventricular rate 143 BPM MUSE SYSTEM Atrial Rate 143 BPM MUSE SYSTEM P-R Interval 122 ms MUSE SYSTEM QRS Duration 68 ms MUSE SYSTEM Q-T Interval 290 ms MUSE SYSTEM QTC Calculated (Bezet) 447 ms MUSE SYSTEM Calculated P [place] 41 degrees MUSE SYSTEM Calculated R [place] 60 degrees MUSE SYSTEM Calculated T [place] 19 degrees MUSE SYSTEM INTERPRETATION Sinus tachycardia Nonspecific ST abnormality Abnormal ECG No previous ECGs available Confirmed by NEO IRWIN M.D. ([id number]) on 07/20/2013 4:29:00 PM MUSE SYSTEM 07/20/2013 2:08 AM EST 07/20/2013 4:29 PM EST Felecia Hadley MD ECG ORDERABLES MUSE SYSTEM * (ABNORMAL) POCT urine dipstick (07/19/2013 10:08 PM EST) Pathologist [facility] [place] POC Sp [place] 1.010 1.002 - 1.030 POC pH, UA 7 5.0 - 8.5 POC Leuk, UA negative Negative - Negative POC Nitrite, UA negative Negative - Negative POC Protein, UA trace Negative - Negative mg/dL POC Glucose, UA normal Normal - Normal mg/dL POC Ketone, UA small Negative - Negative POC Urobil, UA normal 0.2 - 1.0 mg/dL POC Bili, UA negative Negative - Negative POC Blood, UA negative Negative - Negative christy/uL Urine specimen (specimen) 07/19/2013 10:08 PM EST Felecia Hadley MD POINT OF CARE TEST O RDERABLES * (ABNORMAL) Differential, Automated (07/19/2013 10:00 PM EST) Pathologist [facility] [place] Neutrophil % 88.1(H) 34.0 - 71.0 % CERNER MILLENNIUM Neutrophil Absolute 10.47(H) 1.50 - 6.30 x10(3)/mc L CERNER MILLENNIUM Lymph % 7.2(L) 19.0 - 53.0 % CERNER MILLENNIUM Lymphocytes Abs 0.8(L) 1.0 - 3.6 x10(3)/mc L CERNER MILLENNIUM Monocyte % 4.0 4.0 - 13.0 % CERNER MILLENNIUM Monocyte Abs 0.5 0.2 - 1.0 x10(3)/mc L CERNER MILLENNIUM Eos % 0.3 0.0 - 7.0 % CERNER MILLENNIUM Eosinophils Abs 0.0 0.0 - 0.5 x10(3)/mc L CERNER MILLENNIUM Basophil % 0.1 0.0 - 2.0 % CERNER MILLENNIUM Baso Absolute 0.0 0.0 - 0.2 x10(3)/mc L CERNER MILLENNIUM Immature Gran % 0.30 0.00 - 0.66 % CERNER MILLENNIUM Comment: Immature granulocytes(IG's)percentage and absolute count will include metamyelocytes, myelocytes, and promyelocytes. Blood smears from CBCs yielding IG's will be scanned manually for concordance. If this scan disagrees with the automated IG or if promyelocytes are noted, a manual differential will be performed. Immature Gran Absolute 0.03 0.00 - 0.05 x10(3)/mc L CERNER MILLENNIUM Blood specimen (specimen) 07/19/2013 10:00 PM EST 07/19/2013 10:23 PM EST Felecia Hadley MD HEMATOLOGY ORDERABLE S [facility] * Antibody screen (07/19/2013 10:00 PM EST) Pathologist [facility] [place] Ab Screen Interp Negative CERNER COURTNEYENNIUM Expires at [id number] on: [id number] CERNER COURTNEYENNIUM Blood specimen (specimen) 07/19/2013 10:00 PM EST 07/19/2013 10:56 PM EST Narrative Resulting Agency Comment Spec In Lab Felecia Hadley MD BLOOD BANK LAB ORDER [facility] * ABO/Rh Typing (07/19/2013 10:00 PM EST) Pathologist [facility] [place] ABORH Type A Pos CERNER COURTNEYENNIUM Blood specimen (specimen) 07/19/2013 10:00 PM EST 07/19/2013 10:56 PM EST Narrative Resulting Agency Comment Spec In Lab Felecia Hadley MD BLOOD BANK LAB ORDER ALEA Performing Organization Address City/[facility] Co de Phone Number [facility] * (ABNORMAL) Creatinine (07/19/2013 10:00 PM EST) Creatinine 0.65(L) 0.70 - 1.20 mg/dL [facility] Comment: Please note that the pediatric reference intervals supplied above were not validated at [facility]. Results from pediatric patients should be interpreted in conjunction to the patient's age, height and muscle mass. Est Glomerular Filtration Rate >60 >=60 [facility] Comment: This estimated GFR (eGFR) value was calculated using the MDRD equation which has been validated on patients between the ages of 18 and 70. The MDRD should not be used to assess kidney function in patients < 18 years of age or in patients with extremes of body mass, or in patients with acute kidney failure. This value should be multiplied by 1.2 for patients. For further information please copy and paste the following links into your internet browser. http://www.nkdep.nih.gov/lab-evaluation.shtml http://www.kidney.org/professionals/ Blood specimen (specimen) 07/19/2013 10:00 PM EST 07/19/2013 10:23 PM EST Narrative Resulting Agency Comment Spec In Lab Felecia Hadley MD CHEMISTRY ORDERABLES Performing Organization Address City/[facility]/ZIP Co de Phone Number [facility] * Aspartate Aminotransferase (07/19/2013 10:00 PM EST) [facility] Aspartate Aminotransferase 16 5 - 30 unit/L [facility] Blood specimen (specimen) 07/19/2013 10:00 PM EST 07/19/2013 10:23 PM EST Narrative Resulting Agency Comment Spec In Lab Felecia Hadley MD CHEMISTRY ORDERABLES Performing Organization Address [facility] Co de Phone Number [facility] * (ABNORMAL) CBC (with Diff) (07/19/2013 10:00 PM EST) White Blood Cell 11.9(H) 4.0 - 10.0 x10(3)/mc L CERNER MILLENNIUM Red Blood Cell 3.97 3.93 - 5.22 x10(6)/mc L CERNER MILLENNIUM Hemoglobin 11.7 11.2 - 15.7 gm/dL CERNER MILLENNIUM Hematocrit 34.6 34.0 - 45.0 % CERNER MILLENNIUM Mean Cell Volume 87.2 79.0 - 94.0 fL CERNER MILLENNIUM Mean Cell Hemoglobin 29.5 26.6 - 32.2 pg CERNER MILLENNIUM Mean Cell Hemoglobin Concentration 33.8 32.0 - 36.5 gm/dL CERNER MILLENNIUM Platelet 153 145 - 370 x10(3)/mc L CERNER MILLENNIUM RDW Standard Deviation 41.5 35.0 - 46.0 fL CERNER MILLENNIUM RDW coefficient of variation 13.1 10.9 - 14.4 % CERNER MILLENNIUM Mean Platelet Volume 12.7(H) 9.0 - 12.0 fL CERNER MILLENNIUM Blood specimen (specimen) 07/19/2013 10:00 PM EST 07/19/2013 10:23 PM EST Narrative Resulting Agency Comment Spec In Lab Felecia Hadley MD HEMATOLOGY ORDERABLE S Performing Organization Address [facility] Co de Phone Number [facility]ZIE R[facility] documented in this encounter Visit Diagnoses Diagnosis Tachycardia Tachycardia, unspecified Previous delivery affecting Previous delivery, unspecified as to episode of care or not applicable Gestational hypertension, third trimester Gestational hypertension Unspecified hypertension complicating , childbirth, or the puerperium, unspecified as to episode of care Tachycardia Tachycardia, unspecified documented in this encounter Administered Medications Inactive Administered Medications - up to 3 most recent administrations Medication Order MAR Action Action Date Dose Rate Site acetaminophen (TYLENOL) tablet 650 mg 650 mg, Oral, EVERY 6 HOURS PRN, Starting on 07/20/13 at 1636, Until 07/22/13 at 1536, Pain, Fever, Maximum 4000 mg tylenol from all sources in a 24 hour period, Routine Given 07/22/2013 10:47 AM EST 650 mg citric acid-sodium citrate (BICITRA) oral solution 30 mL 30 mL, Oral, ONCE, 1 dose, On 07/20/13 at 1400, Routine Given 07/20/2013 1:29 PM EST 30 mLs dextrose 5% and lactated ringers infusion 100 mL/hr, Intravenous, CONTINUOUS, Starting on Mon07/19/13 at 2245, Until 07/20/13 at 1636 New Bag 07/19/2013 11:00 PM EST 100 mL/hr 100 mL/hr docusate sodium (COLACE) capsule 100 mg 100 mg, Oral, 2 TIMES DAILY, First dose on 07/20/13 at 2100, Until Discontinued, Routine Given 07/22/2013 10:47 AM EST 100 mg Given 07/21/2013 8:00 PM EST 100 mg Given 07/21/2013 11:56 AM EST 100 mg famotidine (PEPCID) injection 20 mg 20 mg, Intravenous, EVERY 12 HOURS SCHEDULED (2 times per day), First dose on 07/20/13 at 0200, Until Discontinued Given 07/20/2013 2:09 AM EST 20 mg ibuprofen (ADVIL;MOTRIN) tablet 600 mg 600 mg, Oral, EVERY 6 HOURS PRN, Starting on 07/21/13 at 1036, Until 07/22/13 at 1536, Pain, - Begin after ketorolac discontinued. , Routine Given 07/22/2013 10:47 AM EST 600 mg Given 07/22/2013 4:39 AM EST 600 mg Given 07/21/2013 8:00 PM EST 600 mg ketorolac (TORADOL) injection 15 mg 15 mg, Intravenous, EVERY 6 HOURS PRN, Starting on 07/20/13 at 1636, Until 07/21/13 at 1035, Pain, Stop after 24 hours then start ibuprofen orally., Routine Given 07/21/2013 11:57 AM EST 15 mg Given 07/21/2013 3:06 AM EST 15 mg Given 07/20/2013 8:37 PM EST 15 mg lactated ringers 1,000 mL IV bolus Intravenous, ONCE, 1 dose, On Mon07/19/13 at 2215 Given 07/19/2013 10:15 PM EST lactated ringers infusion 100 mL/hr, Intravenous, CONTINUOUS, Starting on 07/20/13 at 1700, Until 07/22/13 at 1536, Administer until tolerating clear liquids then saline lock. New Bag 07/20/2013 6:00 PM EST 100 mL/hr 100 mL/hr morphine 10 mg/mL carpuject 10 mg 10 mg, Intramuscular, ONCE, 1 dose, On 07/20/13 at 0200, Routine Given 07/20/2013 1:45 AM EST 10 mg Left Gluteal morphine 10 mg/mL carpuject 5 mg 5 mg, Intravenous, ONCE, 1 dose, On 07/20/13 at 0200, Routine Given 07/20/2013 1:45 AM EST 5 mg morphine 10 mg/mL carpuject 1 dose, Starting on 07/20/13 at 0125, Until 07/20/13 at 0145, VEDA TEMPLETON: cabinet override OXYcodone (ROXICODONE) immediate release tablet 5-10 mg 5-10 mg, Oral, EVERY 4 HOURS PRN, Starting on 07/20/13 at 1636, Until 07/22/13 at 1536, Pain, Routine Given 07/22/2013 12:36 AM EST 10 mg Given 07/21/2013 8:00 PM EST 10 mg Given 07/21/2013 1:00 PM EST 10 mg promethazine (PHENERGAN) 25 mg/mL injection Starting on 07/20/13 at 0125, 1 dose, Until 07/20/13 at 0145, VEDA TEMPLETON: cabinet override promethazine (PHENERGAN) injection 25 mg 25 mg, Intravenous, ONCE, On 07/20/13 at 0200, 1 dose, Avoid extravasation Given 07/20/2013 1:45 AM EST 25 mg simethicone (MYLICON) chewable tablet 80 mg 80 mg, Oral, 4 TIMES DAILY PRN, Starting on 07/20/13 at 1636, Until 07/22/13 at 1536, Cramping, gas pain, Routine Given 07/21/2013 8:05 PM EST 80 mg documented in this encounter Active and Recently Administered Medications Times are shown in EST. Scheduled Medication Order 07/20/2013 07/21/2013 07/22/2013 citric acid-sodium citrate (BICITRA) oral solution 30 mL (COMPLETED) 30 mL, Oral, ONCE, 1 dose, On 07/20/13 at 1400, Routine 1329 (Given - Provider: Macey Brorego RN) docusate sodium (COLACE) capsule 100 mg 100 mg, Oral, 2 TIMES DAILY, First dose on 07/20/13 at 2100, Until Discontinued, Routine 2233 (Given - Provider: Soledad Hale RN) 1156 (Given - Provider: Nicole Borja, ULYSSES)2000 (Given - Provider: Dena Sun, ULYSSES) 0900 (Due)1047 (Given - Provider: Minnie Christian RN) famotidine (PEPCID) injection 20 mg (CANCELED) 20 mg, Intravenous, EVERY 12 HOURS SCHEDULED (2 times per day), First dose on 07/20/13 at 0200, Until Discontinued 0209 (Given - Provider: Veda Templeton RN)0900 (Due)2100 (Due) morphine 10 mg/mL carpuject 10 mg (COMPLETED) 10 mg, Intramuscular, ONCE, 1 dose, On 07/20/13 at 0200, Routine 0145 (Given - Provider: Veda Templeton RN) morphine 10 mg/mL carpuject 5 mg (COMPLETED) 5 mg, Intravenous, ONCE, 1 dose, On 07/20/13 at 0200, Routine 0145 (Given - Provider: Veda Templeton RN) promethazine (PHENERGAN) injection 25 mg (COMPLETED) 25 mg, Intravenous, ONCE, On 07/20/13 at 0200, 1 dose, Avoid extravasation 0145 (Given - Provider: Veda Templeton RN - Comment: IVPB) Continuous Medication Order 07/20/2013 07/21/2013 07/22/2013 lactated ringers infusion (CANCELED) 100 mL/hr, Intravenous, CONTINUOUS, Starting on 07/20/13 at 1700, Until 07/22/13 at 1536, Administer until tolerating clear liquids then saline lock. 1800 (New Bag - Provider: Nicole Borja, ULYSSES) 2000 (Stopped - Provider: Dena Sun RN - Comment: not running at change of shift) PRN Medication Order 07/20/2013 07/21/2013 07/22/2013 acetaminophen (TYLENOL) tablet 650 mg (CANCELED) 650 mg, Oral, EVERY 6 HOURS PRN, Starting on 07/20/13 at 1636, Until 07/22/13 at 1536, Pain, Fever, Maximum 4000 mg tylenol from all sources in a 24 hour period, Routine 1047 (Given - Provider: Minnie Christian, ULYSSES) ibuprofen (ADVIL;MOTRIN) tablet 600 mg (CANCELED)(Linked Group 1) 600 mg, Oral, EVERY 6 HOURS PRN, Starting on 07/21/13 at 1036, Until 07/22/13 at 1536, Pain, - Begin after ketorolac discontinued. , Routine 1999 (Given - Provider: Dena Sun RN) 0439 (Given - Provider: Dena Sun RN)1047 (Given - Provider: Minnie Christian RN) ketorolac (TORADOL) injection 15 mg ()(Linked Group 1) 15 mg, Intravenous, EVERY 6 HOURS PRN, Starting on 07/20/13 at 1636, Until 07/21/13 at 1035, Pain, Stop after 24 hours then start ibuprofen orally., Routine 2036 (Given - Provider: Soledad Hale RN) 0306 (Given - Provider: Soledad Hale RN)1157 (Given - Provider: Nicole Borja, ULYSSES) OXYcodone (ROXICODONE) immediate release tablet 5-10 mg 5-10 mg, Oral, EVERY 4 HOURS PRN, Starting on 07/20/13 at 1636, Until 07/22/13 at 1536, Pain, Routine 1742 (Given - Provider: Nicole Borja, ULYSSES) 0002 (Given - Provider: Soledad Hale RN)1300 (Given - Provider: Nicole Borja, ULYSSES)2000 (Given - Provider: Dena Sun RN) 0036 (Given - Provider: Dena Sun RN) simethicone (MYLICON) chewable tablet 80 mg (CANCELED) 80 mg, Oral, 4 TIMES DAILY PRN, Starting on 07/20/13 at 1636, Until 07/22/13 at 1536, Cramping, gas pain, Routine 2004 (Given - Provider: Dena Sun RN) Linked Groups Order Group 1: ketorolac (TORADOL) injection 15 mg ()Jump to med 15 mg, Intravenous, EVERY 6 HOURS PRN, Starting on 07/20/13 at 1636, Until 07/21/13 at 1035, Pain, Stop after 24 hours then start ibuprofen orally., Routine Followed by ibuprofen (ADVIL;MOTRIN) tablet 600 mg (CANCELED)Jump to med 600 mg, Oral, EVERY 6 HOURS PRN, Starting on 07/21/13 at 1036, Until 07/22/13 at 1536, Pain, - Begin after ketorolac discontinued. , Routine documented in this encounter Care Teams Cork Insulation Installer Relationship Specialty Start Date End Date Domonique Sweeney, GERTRUDIS [facility] [address] [facility] [place] [address] PCP - General 11/30/12 06/12/18 documented as of this encounter
--- OUTSIDE RECORDS SUMMARY | 2024-06-26 16:45 | XMS_ITS | Encounter Summary ---
[place] [address] Care Team Providers Care Retail Banking Manager Name Role Phone Zahra Domonique Kim APRN Primary Care Provider [phone] Reason for Visit * Reason Comments Care Mirena IUD insertion Encounter Details Date Type Department Care Team (Latest Contact Info) Description 09/02/2013 4:00 PM EDT Office Visit Obstetrics [place] [id number] Don Boudreaux MD Encounter for insertion of intrauterine contraceptive device (Primary Dx) Discharge Disposition: Home Social History Tobacco Use [...] Sign Reading Time Taken Comments Blood Pressure 140/84 09/02/2013 3:44 PM EDT Pulse - - Temperature - - Respiratory Rate - - Oxygen Saturation - - Inhaled Oxygen Concentration - - Weight 74.4 kg (164 lb) 09/02/2013 3:44 PM EDT Height 162.6 cm (5' 4) 09/02/2013 3:44 PM EDT Body Mass Index 28.15 09/02/2013 3:44 PM EDT documented in this encounter Patient Instructions * Patient Instructions* Don Boudreaux MD - 09/02/2013 4:34 PM EDT You received a Mirena IUD. The Mirena IUD releases a constant, small amount of a hormone called progesterone. The IUD provides effective control for 5 years, after which is should be removed. The IUD is very good at preventing normal or intrauterine . It does not prevent ectopic, or tubal, pregnancies very well. If you miss a period, you should do a test immediately. Ifthe test is positive, please call your provider immediately, as there is a high likelihood that the is a tubal . Most women experience some cramping and spotting for a few days after the IUD is inserted. This is normal. Heavy bleeding or severe cramping are abnormal and you should call your provider if this happens Many women have irregular bleeding for several months after the Mirena is inserted. The bleeding may be enough so that you need to wear a minipad. About 1 in 5 women (20%) will stop having periods due to the Mirena IUD. This is not harmful. If you miss a period, you should do a test immediately. If it is negative, then you are one of the women who stops having periods with the Mirena IUD. The IUD does not prevent sexually transmitted infections and HIV in particular. If you are with a new partner, it is very important that condoms are used until testing is performed for sexually transmitted infections. documented in this encounter Progress Notes * Don Boudreaux MD - 09/02/2013 4:11 PM EDT Carol Spears was seen today for care. She underwent a without labor delivery at 37 weeks. Today she complains of Nothing. She is sexually active, last had intercourse a week ago and used a condom. Her LMP started 2 days ago. She denies perineal pain. control options were discussed at length. The patient desires IUD. She had mirena after her last . She had continuous abdominal cramping until it was removed, it was in place for a fewmonths. She wants to try again as she thinks this is the best type of control for her. Smoking: Seat Belt Use discussed Smoke detectors are present in the home and are checked on a regular basis. Fire arms: Dept. safely locked and unloaded Pap smear: not indicated based on age, had one that was normal. Immunization status: Up to date Depression Screen score: 1 Physical Exam Last Set of Vitals: BP 140/84 Ht 162.6 cm (5' 4) Wt 74.39 kg (164 lb) BMI 28.14 kg/m2 LMP 08/31/2013 ? No Weight - Scale: 74.39 kg (164 lb) General: alert, well appearing, in no apparent distress HEENT: normocephalic, atraumatic Oral Pharynx: mucous membranes moist, pharynx normal without lesions Back: no CVA tenderness Lungs:clear to auscultation, no wheezes, rales or rhonchi, symmetric air entry Heart:regular rate and rhythm, no murmurs Breasts: no masses noted, no significant tenderness, no palpable axillary nodes, no skin changes Abdomen: abdomen is soft without significant tenderness, masses, organomegaly or guarding. Extremities: no redness or tenderness in the calves or thighs, no edema Neurologic:alert, oriented, normal speech, no focal findings or movement disorder noted Psychiatric: Affect is Appropriate. Pelvic: VULVA: normal appearing vulva with no masses, tenderness or lesions, VAGINA: normal appearing vagina with normal color and discharge, no lesions, CERVIX: normal appearing cervix without discharge or lesions, UTERUS: uterus is normal size, shape, consistency and nontender, ADNEXA: normal adnexa in size, nontender and no masses Assessment/Plan: Normal Pap smear:Not due Control: IUD: Needs to return in 4 weeks for string check as strings retracted. long term follow up: with PCP Counseling: We discussed the risks and benefits of the IUD. There may be a slight risk of infection at the timeof insertion. Should she contract a sexually transmitted infection, it could progress into a severepelvic infection. We also discussed the small risk of IUD migration into the uterine wall or through the uterus into the abdominal cavity and then requiring surgery for removal. I explained that the strings will need to be checked after her first menses, as there is a small risk of expulsion. We discussed the need to use condoms should she or her partner have new sexually partners. I explained that with the Mirena IUD, many women experience irregular menstrual spotting, most have lightening of their menses, and 20% develop amenorrhea. Should she miss a menses, I advised her to immediately obtain a test. If it is positive, there is a high likelihood it is a tubal as the IUD is much better at preventing intrauterine than tubal pregnancies. If the test is positive, she should call us immediately. If the test is negative, then there is no need for further testing, as she is not at risk. Procedure: After deciding to proceed with the procedure, the patient was identified and a time out was held. IUD insertion: Bimanual exam was performed. A sterile speculum was placed into the vagina. The cervixwas cleansed with Betadine. The anterior lip was grasped with a single tooth tenaculum. The uterus was sounded to 8 cm. The IUD was appropriately adjusted, and then inserted through the internal os into the uterus. The fundus was gently felt, the IUD slightly retracted, and the introducer was pulled back over the stylette. The strings were clipped to 4 cm of length. The patient tolerated the procedure well. After clipping the strings at 4 cm, the iud retracted and only 5 mm of string are visible. documented in this encounter Miscellaneous Notes * Miscellaneous - Provider, Scanning - 09/03/2013 4:03 PM EDT documented in this encounter Plan of Treatment Not on file documented as of this encounter Procedures Procedure Name Priority Date/Time Associated Diagnosis Comments POCT URINE Routine 09/02/2013 Encounter for insertion of intrauterine contraceptive device documented in this encounter Results * POCT urine (09/02/2013) POC Urine HCG Negative Negative - Negative POC Control Internal Controls Acceptable Don Boudreaux MD POINT OF CARE TEST O RDERABLES documented in this encounter Visit Diagnoses Diagnosis Encounter for insertion of intrauterine contraceptive device- Primary documented in this encounter Administered Medications Inactive Administered Medications - up to 3 most recent administrations Medication Order MAR Action Action Date Dose Rate Site levonorgestrel (MIRENA) 20 mcg/24 hour (5 years) IUD 1 Intra Uterine Device 1 Intra Uterine Device, Intrauterine, ONCE, 1 dose, On 09/02/13 at 1700, Routine Inserted 09/02/2013 4:36 PM EDT 1 Intra Uterine Device documented in this encounter Care Teams Retail Banking Manager Relationship Specialty Start Date End Date Domonique Sweeney APRN [facility] [address] [place] [address] PCP - General 11/30/12 06/12/18 documented as of this encounter
--- OUTSIDE RECORDS SUMMARY | 2024-06-26 16:45 | XMS_ITS | Encounter Summary ---
[place] [address] Care Team Providers Care Basic Sciences Dean Name Role Phone Zahra Domonique Kim APRN Primary Care Provider [phone]- [phone] Reason for Visit * Reason Onset Date Comments Medical Care Coordination 07/02/2013 Encounter Details Date Type Department Care Team (Late st Contact Info) Description 07/02/2013 Telephone Obstetrics [place] [phone] Vaishnavi Watson RN Medical Care Coordination Social History Tobacco Use Types Packs/Day Years [...] Telephone Encounter - Vaishnavi Watson RN - 07/02/2013 9:50 AM EST Carol is called because she requests to get one of her weekly NSTs at and one at a more local facility. She requests [facility]. [facility], and accept to have Carol come weekly for NSTs at [facility]. Kristin Sinclair RN will contact Carol to set up appointments on . We will notify [facility] should Carol become admitted or deliver. documented in this encounter Plan of Treatment Not on file documented as of this encounter Visit Diagnoses Not on filedocumented in this encounter Care Teams Basic Sciences Dean Relationship Specialty Start Date End Date Domonique Sweeney APRN [facility] [address] [place] [address] PCP - General 11/30/12 06/12/18 documented as of this encounter
--- OUTSIDE RECORDS SUMMARY | 2024-06-26 16:45 | XMS_ITS | Encounter Summary ---
[place] [address] Care Team Providers Care Primary School Teacher Name Role Phone ZahraRobertofelisa Kim APRN Primary Care Provider [phone]- [phone] Reason for Visit * Reason Comments Routine Visit Encounter Details Date Type Department Care Team (Latest Contact Info) Description 07/08/2013 11:15 AM EST Routine Obstetrics [place] [address] Severo Carreon MD [facility] [place] [address] GA: [id number] Discharge Disposition: Home Social History Tobacco Use [...] Sign Reading Time Taken Comments Blood Pressure 124/78 07/08/2013 11:07 AM EST Pulse - - Temperature - - Respiratory Rate - - Oxygen Saturation - - Inhaled Oxygen Concentration - - Weight 85.6 kg (188 lb 11.2 oz) 014 11:07 AM EST Height - - Body Mass Index 32.39 12/17/2012 2:37 PM EDT documented in this encounter Progress Notes * Severo Carreon MD - 07/08/2013 11:34 AM EST Repeat c/s scheduled 06/29 at 39w0d. If worsening hypertension will move to earlier date. * Severo Carreon MD - 07/08/2013 11:26 AM EST Good movement. No regular contractions/ leaking fluid / bleeding / pain. No vision changes, RUQ pain. Occasional headaches, but relieved with acetaminophen. GBS at next visit. Reviewed option for external cephalic version; declines. Plan for repeat c/s if still breech. documented in this encounter Plan of Treatment Not on file documented as of this encounter Visit Diagnoses Diagnosis Previous delivery affecting Previous delivery, unspecified as to episode of care or not applicable Unspecified high-risk Hx of preeclampsia, prior , currently , third trimester Gestational hypertension, third trimester documented in this encounter Care Teams Primary School Teacher Relationship Specialty Start Date End Date Domonique Sweeney APRN [facility] [address] [place] [address] PCP - General 11/30/12 06/12/18 documented as of this encounter
--- OUTSIDE RECORDS SUMMARY | 2024-06-26 16:45 | XMS_ITS | Encounter Summary ---
[place] [address] Care Team Providers Care Director Of Officiating Name Role Phone Shaneka Mae APRN Primary Care Provider [phone] Reason for Visit * Auth/Cert Specialty Diagnoses / Procedures Referred By Contac t Referred To Contact Diagnoses Preeclampsia, severe, second trimester / WITH SEVERE PRE ECLAMPSIA Procedures EMERGENCY IPI Referral ID Status Reason Start Date Expiration Date Visits Re quested Visits Authorized [id number] 1 1 Encounter Details Date Type Department Care Team (Late st Contact Info) Description 06/18/2018 10:30 AM EST Anesthesia [place] [address] Ishmael Tinajero MD [facility] [address] AN[place]ES[place] [address] Neil Conley MD Anesthesia Record Procedure Summary Procedure Name Responsible Anesthesiologist Anesthesia Start Time Anesthesia Stop Time @ DELIVERY (WRVU 16.13) (Abdomen) Ishmael Tinajero MD 06/18/18 1030 06/18/18 1227 Events Date Time Event Comment 06/18/2018 0959 1030 Start 1030 An Start Data 1031 AN Verify 1031 Quick Note Magnesium runni ng at 2 mg/hr and continued during procedure 1040 Spinal 1041 Anesthesia Ready 1043 L Uterine Displacement 1103 Skin Incision 1112 Uterine Incision 1115 Baby Delivered 1222 an stop data 1227 Recovery or ICU Handoff Gisela ent care was transferred to the destination unit staff after review of the patient's medical history, current anesthetic/surgical status and plan, according to the Provider Handoff Checklist. 1227 Stop Meds Name Total PHENYLephrine 160 mcg PHENYLephrine INF 3,220 mcg Oxytocin INF 20 mL Oxytocin INF 500 mL ceFAZolin (ANCEF) 2g in dextrose 5% 100 mL 2 g BUpivacaine 0.5% 2.5 mL Morphine 0.15 mg fentaNYL 15 mcg lactated Ringers infusion 1,700 mL * Agents Name O2 Air N2O O2 Auxiliary Flowmeter 1 * Blood No blood administrations on file. Lines, Drains, and Airways Type Details Placement Removal Midline Catheter - Single Lumen 06/17/18; 1942; right cephalic vein (lateral side of arm); 2 Fr; 6; 0; carlos lopez RN; distraction, intradermal injection; tolerated well; 0; leaderflex, unable to flush, removed (guide wire placed in sharps box); no longer indicated, other (see comments); 06/19/18; 200506/17/18 1942 by Carlos Lopez RN 06/19/182005 by Georgia Fish, ULYSSES (RETIRED) Peripheral IV Line - Single Lumen 06/18/18; 1012; median cubital vein (antecubital fossa), left; [id number] catheter system; 18 gauge, 1 in length; Kristi Olson RN VAS; distraction, intradermal injection, tolerated well, appears comfortable; 0; no longer indicated, removed per physician; 06/20/18; 2350 06/18/18 1012 by Kristi Olson RN 06/20/18 2350 by Ramya Ambrose RN Urethral Catheter 06/18/18; 1053; Abdominal surgery; Acute urinary retention; indwelling double lumen catheter; 100% silicone; 14; inserted at this facility; 1; 10; 10; drainage bag to dependent drainage; 06/19/18; 1321 06/18/18 1053 by Tameka Mina RN 06/19/18 1321 by Mary Ann Bashir RN documented in this encounter Social History [...] OR Notes * Anesthesia Postprocedure Evaluation - Risa Mcgee - 06/19/2018 10:48 AM EST [facility] Department of Anesthesiology Post-procedure Note Patient: Carol Hester Procedure Summary Date: 06/18/18 Room / Location: [facility] BP OR / [facility] Anesthesia Start: 1030 Anesthesia Stop: 1227 Procedure: @ DELIVERY (WRVU 16.13) (N/A Abdomen) Diagnosis: Surgeon: Earlene Umanzor MD Responsible Provider: Ishmael Tinajero MD Anesthesia Type: Not recorded ASA Status: 2 All Anesthesia Providers: Anesthesiologist: Ishmael Tinajero MD Offset Press Operator Helper: Neil Conley MD; Risa Mcgee MD Most Recent Vitals: 06/19/18 1005 BP: Pulse: Resp: Temp: SpO2: 99% Pain Patient Location: Floor Level of Consciousness: Awake and Alert Pain Management: Pain Being Addressed PONV: None Cardiovascular Status: Hemodynamically Stable and At Baseline Respiratory Status: At Baseline and Room Air Postoperative Fluid Status: Intravascular EUvolemia Possible Anesthetic Complications: NONE apparent at time of evaluation Final Primary Anesthesia Type: Spinal (The anesthetic type performed was the same as planned.) Comments: I have seen and examined Carol Hester in the period following neuraxial anesthesia. Please see patient flow sheet for BP, HR, RR and O2 sat. The patient is normothermic and hydration is improved. The patient's cardiorespiratory status is at baseline. She is still on Mg andbeing monitored closely for pre-eclampsia. The neuroaxial intervention site is clean and without redness, swelling or tenderness. The patient denies pain, neuropathy, significant focal weakness or headache. She still has some generalized weakness, as she did preop, likely related to her Mg and pre-eclampsia. Her consciousness and sensory/motor function are at baseline. She is up and walking. She still has a aguilar in place for UOP monitoring. She has not had a void trial. There are no apparent complications related to the anesthetic the patient received. Overall, the patient expressed satisfaction with the anesthesia care she received. Please contact anesthesia for any questions or concerns. * Anesthesia Procedure Notes - Risa Mcgee - 06/18/2018 11:08 AM EST Associated Order(s): Neuraxial (Operative Procedure/ APS) Procedure: Neuraxial Block Primary Anesthetic Type: Spinal & Epidural The patient was greeted. The sedation plan, its benefits, risks and alternatives were discussed with the patient. The patient has consented to the procedure. The medical history and chart were reviewed. The timeout was performed. Start time: 06/18/2018 10:20 AM End time: 06/18/2018 10:40 AM Patient Location: Operating Room Patient Prep Position: Sitting Prep: Hat, Mask, Sterile Gloves, Chlorhexidine, Hand Hygiene and Patient Draped Injection technique: single-shot Skin Anesthetic Lidocaine 1% 5 ml Procedure Technique Level of needle insertion: L3-4 Needle approach: midline Needle Type: Jennifer Haskins Gauge: 18 Needle length: 3.5 in Needle insertion depth when BLANCA achieved: 7 cm Technique for Loss of Resistance: BLANCA saline A 21 guage epidural catheter introduced into the epidural space. Catheter at skin depth: 12 cm Dressing/Secured with: Chlorhexidine Tegaderm and Tegaderm Number of attempts: 4 Medications: BUpivacaine 0.5%, 2.5 mL fentaNYL, 15 mcg Morphine, 0.15 mg Events/Notes Events: None Resident/FINANCE AND ADMINISTRATION MANAGER: Neil Conley MD Second Resident/FINANCE AND ADMINISTRATION MANAGER: Risa Mcgee MD Fellow: Attending Physician: Ishmael Tinajero MD ~~~~~~~~~~~~~~~~~~~~~~~~~~~~~~~~~~~~~~~~~~~~~~~~~~~~~~~~~~~~ * Anesthesia Preprocedure Evaluation - Neil Conley MD - 06/13/2018 3:09 PM EST Pre-Anesthesia Evaluation for: Carol Hester a 22 y.o. female. * No procedures listed * Patient Active Problem List Diagnosis ??? Preeclampsia, severe, second trimester ??? Hx of section X2 ??? History of delivery with first at 28w at [facility] for preeclampsia with severe features ??? History of gestational hypertension in second , delivered at [facility] at 37w4d Past Medical History: Diagnosis Date ??? Asthma excercise induced ??? Hypertension only with preeclampsia Past Surgical History: Procedure Laterality Date ??? APPENDECTOMY 2008 ??? SECTION 2010 ??? PRO DELIVERY ONLY 07/20/2013 @ DELIVERY performed by Don Boudreaux MD at [facility] Social History Tobacco Use ??? Smoking status: Never Smoker ??? Smokeless tobacco: Never Used Substance Use Topics ??? Alcohol use: No Social History Substance and Sexual Activity Drug Use No No Known Allergies Medications: MAR and/or home medications have been reviewed. Physical Exam: Most Recent Vitals: 06/13/18 1436 BP: Pulse: Resp: Temp: SpO2: 99% There is no height or weight on file to calculate BMI. Airway Assessment: Mallampati: II TM distance: >3 FB Neck ROM: full Cardiovascular Assessment: cardiovascular exam normal Pulmonary Assessment: pulmonary exam normal Dental Assessment: Misc Assessment: Anesthesia Plan: ASA 2 Pt interviewed and examined. Pt is a 22 y.o. female who is and 25w5d with pre-eclampsia with severe features here for . Medical history, medications, allergies, and social history reviewed, significant for: - pre-eclampsia with severe features by HTN (was taking labetalol 600 mg po BID and nifedipine 30 mg po daily as outpatient) - 2 prior C/S - history of preeclampsia with severe features, delivery at 28w at [facility], 2010 - history of gestational hypertension with delivery at 37w at [facility], 2013 - asthma (exercise induced, no routine inhaler use) Allergies/ADR: NKDA Personal history of problems with anesthesia: no prior complications with anesthesia. Tolerated spinal for previous C/S without issue. Family history of anesthesia problems: denies Bleeding Disorder: denies Asthma: exercise induced, no routine inhaler use HTN: yes, associated with pre-eclampsia. No HTN outside . Prior back surgeries/pathology: denies LE numbness/weakness: denies -Pending Labs Plan: - Spinal or CSE if labs w/o evidence of thrombocytopenia, otherwise GA w/ETT - Adequate IV access - Standard ASA monitoring Risk, benefits discussed; questions answered. Answered all questions, consent obtained and placed in patient's chart. Region - Informed Consent: Anesthetic plan and risks discussed with patient. Plan discussed with resident. PAT Staff Note documented in this encounter Plan of Treatment Not on file documented as of this encounter Procedures Procedure Name Priority Date/Time Associated Diagnosis Comments ANE NEURAXIAL UPDATED Routine 06/18/2018 11:08 AM EST documented in this encounter Results * Neuraxial (Operative Procedure/ APS) (06/18/2018 11:08 AM EST) Narrative Ishmael Tinajero MD - 06/18/2018 11:08 AM EST Risa Mcgee MD ? 06/18/2018 11:12 AM Procedure: ?? Neuraxial Block Primary Anesthetic Type: Spinal & Epidural The patient was greeted. The sedation plan, its benefits, risks and alternatives were discussed with the patient. ??The patient has consented to the procedure. ??The medical history and chart were reviewed. ??The timeout was performed. Start time: 06/18/2018 10:20 AM End time: 06/18/2018 10:40 AM Patient Location: Operating Room Patient Prep Position: Sitting Prep: Hat, Mask, Sterile Gloves, Chlorhexidine, Hand Hygiene and Patient Draped Injection technique: single-shot Skin Anesthetic Lidocaine 1% ??5 ml Procedure Technique Level of needle insertion: L3-4 Needle approach: midline Needle Type: Jennifer Haskins Gauge: 18 Needle length: 3.5 in Needle insertion depth when BLANCA achieved: 7 cm Technique for Loss of Resistance: BLANCA saline A 21 guage epidural catheter introduced into the epidural space. Catheter at skin depth: 12 cm Dressing/Secured with: Chlorhexidine Tegaderm and Tegaderm Number of attempts: 4 Medications: BUpivacaine 0.5%, 2.5 mL fentaNYL, 15 mcg Morphine, 0.15 mg Events/Notes Events: ??None Resident/FINANCE AND ADMINISTRATION MANAGER: ? Neil Conley MD Second Resident/FINANCE AND ADMINISTRATION MANAGER: ??Risa Mcgee MD Fellow: ? Attending Physician: ? Ishmael Tinajero MD ~~~~~~~~~~~~~~~~~~~~~~~~~~~~~~~~~~~~~~~~~~~~~~~~~~~~~~~~~~~~ Ishmael Tinajero MD ELECTRIC METER INSTALLER HELPER [facility] documented in this encounter Visit Diagnoses Not on filedocumented in this encounter Administered Medications Inactive Administered Medications - up to 3 most recent administrations Medication Order MAR Action Action Date Dose Rate Site BUpivacaine (PF) (MARCAINE) 0.5 % (5 mg/mL) injection Starting on Mon06/18/18 at 1108, Until Mon06/18/18 at 1108, Anesthesia Intra-op, Routine Given 06/18/2018 11:08 AM EST 2.5 mLs ceFAZolin (ANCEF) 2g in dextrose 5% 100 mL 2 g, Intravenous, ONCE, 1 dose, On Mon06/18/18 at 0930, Administer over 30 Minutes, Indication for (Active or Suspected): Prophylaxis Given 06/18/2018 10:40 AM EST 2 g fentaNYL 50 mcg/mL multi-dose injection Intrathecal, Starting on Mon06/18/18 at 1108, Until Mon06/18/18 at 1108, Anesthesia Intra-op, Routine Given 06/18/2018 11:08 AM EST 15 mcg lactated Ringers infusion 25 mL/hr, Intravenous, CONTINUOUS, Starting on Mon06/13/18 at 1415, Until Holly 06/21/18 at 1230 New Bag 06/18/2018 12:58 PM EST 25 mL/hr 25 mL/hr New Bag 06/18/2018 11:32 AM EST New Bag 06/18/2018 10:18 AM EST 25 mL/hr 25 mL/hr morphine (PF) (DURAMORPH) injection Intrathecal, Starting on Mon06/18/18 at 1108, Until Mon06/18/18 at 1108, Anesthesia Intra-op, Routine Given 06/18/2018 11:08 AM EST 0.15 mg oxytocin (PITOCIN) 30 units in sodium chloride 0.9% 500 mL infusion CONTINUOUS PRN, Starting on Mon06/18/18 at 1115, Until Mon06/18/18 at 1349, Anesthesia Intra-op, Routine New Bag 06/18/2018 11:15 AM EST 500 mL/hr 500 mL/hr oxytocin (PITOCIN) 30 units in sodium chloride 0.9% 500 mL infusion PRN, Starting on Mon06/18/18 at 1115, Until Mon06/18/18 at 1349, Anesthesia Intra-op, Routine Given 06/18/2018 11:15 AM EST 20 mLs PHENYLephrine (MATT-SYNEPHRINE) 20 mg in sodium chloride 250 mL (standard ADULT & Pedi greater than 20kg) infusion CONTINUOUS PRN, Starting on Mon06/18/18 at 1044, Until Mon06/18/18 at 1349, Anesthesia Intra-op, Routine Rate/Dose Change 06/18/2018 12:03 PM EST 20 mcg/min 15 mL/hr Rate/Dose Change 06/18/2018 11:50 AM EST 40 mcg/min 30 mL/ hr Rate/Dose Change 06/18/2018 11:24 AM EST 50 mcg/min 37.5 m L/hr PHENYLephrine in NS (PF) (MATT-SYNEPHRINE) 0.8 mg/10 mL (80 mcg/mL) multi-dose injection Syrg PRN, Starting on Mon06/18/18 at 1118, Until Mon06/18/18 at 1349, Anesthesia Intra-op, Routine Given 06/18/2018 11:24 AM EST 80 mcg Given 06/18/2018 11:18 AM EST 80 mcg documented in this encounter Care Teams Director Of Officiating Relationship Specialty Start Date End Date Shaneka Mae APRN PCP - General Family Medicine 06/13/18 01/09/19 documented as of this encounter
--- OUTSIDE RECORDS SUMMARY | 2024-06-26 16:45 | XMS_ITS | Encounter Summary ---
[place] [address] Care Team Providers Care Incident Response Coordinator Name Role Phone Zahra Domonique Kim APRN Primary Care Provider [phone] Reason for Visit * Reason Comments IUD Check Encounter Details Date Type Department Care Team (Late st Contact Info) Description 10/04/2013 2:30 PM EDT Follow-Up Obstetrics [place] [phone] Don Boudreaux MD Lower abdominal pain, unspecified laterality (Primary Dx); IUD check up Discharge Disposition: Home Social History Tobacco Use [...] Sign Reading Time Taken Comments Blood Pressure 136/72 10/04/2013 2:17 PM EDT Pulse - - Temperature - - Respiratory Rate - - Oxygen Saturation - - Inhaled Oxygen Concentration - - Weight - - Height - - Body Mass Index - - documented in this encounter Progress Notes * Don Boudreaux MD - 10/04/2013 2:25 PM EDT States that for the last 4-5 days she gets a sharp pain circling around her lower abdomen tot he back and front. It is sharp and severe when it occurs, it happens 2-3 times per day and when it occursit will last for a few hours. Nothing really relieves it. Two days ago she noticed some blood when she wiped. Her last period was 2 weeks ago. She denies fevers. She is sexually active and denies pain with intercourse. The pain is central, and lower, but she can't really say if it perhaps starts inher flank and moves to the front. She states she had kidney stones at age 7,. This pain is very different from what she had with her last IUD, which was more related to meals. PE Filed Vitals: 10/04/13 1417 BP: 136/72 Back: no CVAT Abd: Soft, NT SSE: IUD strings initially not visible, but easily became apparent with placing the cyto-brush intothe external os. They are clipped to 2 cm, which is the length they were at with insertion. Impression: I do not believe the IUD has migrated as the strings are the same length as when I clipped them. Plan: Follow up with her PCP if the pain recurrs. documented in this encounter Plan of Treatment Not on file documented as of this encounter Visit Diagnoses Diagnosis Lower abdominal pain, unspecified laterality- Primary IUD check up Surveillance of previously prescribed intrauterine contraceptive device documented in this encounter Care Teams Incident Response Coordinator Relationship Specialty Start Date End Date Domonique Sweeney APRN [facility] [address] [place] [address] PCP - General 11/30/12 06/12/18 documented as of this encounter
--- OUTSIDE RECORDS SUMMARY | 2024-06-26 16:45 | XMS_ITS | Encounter Summary ---
[place] [address] Care Team Providers Care Nuclear Scientist Name Role Phone ZahraRobertofelisa Kim APRN Primary Care Provider [phone]- [phone] Reason for Visit * Reason Comments Routine Visit Encounter Details Date Type Department Care Team (Latest Contact Info) Description 07/01/2013 3:15 PM EST Routine Obstetrics [place] [address] Severo Carreon MD [facility] DR OBSTETRICS [place] [address] GA: 34w6d Discharge Disposition: Home Social History Tobacco Use [...] Sign Reading Time Taken Comments Blood Pressure 148/94 07/01/2013 4:14 PM EST Pulse - - Temperature - - Respiratory Rate - - Oxygen Saturation - - Inhaled Oxygen Concentration - - Weight 85.3 kg (188 lb) 07/01/2013 3:28 PM EST Height - - Body Mass Index 32.27 12/17/2012 2:37 PM EDT documented in this encounter Progress Notes * Severo Carreon MD - 07/01/2013 4:23 PM EST . documented in this encounter Plan of Treatment Not on file documented as of this encounter Visit Diagnoses Diagnosis Hx of preeclampsia, prior , currently , third trimester- Primary Gestational hypertension, third trimester documented in this encounter Care Teams Nuclear Scientist Relationship Specialty Start Date End Date Domonique Sweeney APRN [facility] [address] [place] [address] PCP - General 11/30/12 06/12/18 documented as of this encounter
--- OUTSIDE RECORDS SUMMARY | 2024-06-26 16:45 | XMS_ITS | Encounter Summary ---
[place] [address] Care Team Providers Care Electronic Gluing Machine Operator Name Role Phone Zahra Domonique Kim APRN Primary Care Provider [phone]- [phone] Encounter Details Date Type Department Care Team (Late st Contact Info) Description 07/19/2013 Telephone Obstetrics [place] [id number] Jovany Serna MD Social History Tobacco Use Types Packs/Day Years [...] encounter Miscellaneous Notes * Telephone Encounter - Jovany Serna MD - 07/19/2013 7:47 PM EST Patient is 37 +3/7 weeks with gestational hypertension and history of preeclampsia in prior and prior LTCS. She is scheduled for ERCS at 39 wks. She calls with complaint of painful contractions Q4-8 minutes and BP 170s/90s on home monitoring. Feeling active movement, no bleeding or loss of fluid. Denies headache or RUQ pain. Patient advised to come in for evaluation, nothing further to eat/drink. ETA 9pm Charge nurse meet. Jovany Serna MD PGY3, pager [phone] documented in this encounter Plan of Treatment Not on file documented as of this encounter Visit Diagnoses Not on filedocumented in this encounter Care Teams Electronic Gluing Machine Operator Relationship Specialty Start Date End Date Domonique Sweeney APRN [facility] [address] [place] [address] PCP - General 11/30/12 06/12/18 documented as of this encounter
--- OUTSIDE RECORDS SUMMARY | 2024-06-26 16:45 | XMS_ITS | Encounter Summary ---
[place] [address] Care Team Providers Care Caddy/Caddie Supervisor Name Role Phone Domonique Sweeney APRN Primary Care Provider [phone]- [phone] Reason for Visit * Reason Comments Contractions 4-8 mins apart since approximately 0900 today. Hypertension elevated blood press ures at home (170/97 and 150/102). Encounter Details Date Type Department Care Team (Late st Contact Info) Description 07/20/2013 1:50 PM EST - 07/20/2013 3:38 PM [place] [id number] Don Glass MD @ DELIVERY (WRVU 16.13) Social History Tobacco Use Types Packs/Day Years [...] this in detail. Call your doctor or special education bus driver for: Fever more than 100.5 Heavy bleeding [...] follow up appointment. You may call the [facility] at any time for guidance or for answers to questions that come up prior to you follow up appointment. Your [facility] Provider can be reached during office hours at [facility] Follow-up Clinic AFTER OFFICE HOURS for the jacquard plate maker or special education bus driver personnel adviser Provider electronic signature confirms that discharge instructions [...] Graham, and Nahum will all live in [place], [place] with Bucky's mother. Shawn Isaac is a full-time student at [employer], where she is studying nursing. She hopes to be a nurse in the NICU. Bucky adams works at a car dealership where he [...] y.o.) andNahum (). The family lives in [place], [place] with Bucky's mother. Shawn Isaac is a full-time student at [employer] where she is studying nursing. Bucky works at a car dealership where he does odd-end jobs. Family is appropriately utilizing public supports and appear to have strongsupport from family. P: SW will continue to follow for ongoing support. Tia Reinaldo, TILE MECHANIC HELPER Student Pager [phone] My supervisors are MEAGHAN Wiseman, YOUTH MINISTER and MEAGHAN Shrestha, YOUTH MINISTER * Radha Soliman MD - 07/22/2013 7:03 [...] mirena IUD for contraception ?? /pumping for nutrition without concerns ?? Follow-up: 6 wk visit This patient was seen and discussed on rounds. Dereck Serna MD PGY3, pager [phone] Attending post - section note DON GLASS [...] she had been needed. Infant crying initially. Infant brought to warmer by BP team. warmdried, and stimulated per NRP protocol. required a little CPAP via mask, but transitioned nicely after a minute. APGARS were 7 and 9. Two off for color, one off for Respiratory effort at one mi nute. At 5 minutes one off for color. Infant voided in first few minutes of life as well. BP RN assumed care of at 8-9 minutes of life. * Don [...] DERECK SERNA MD , PGY3 07/20/2013 * Ander Cueva RN - 07/20/2013 1:17 AM EST MD Sanjeev Serna in room to reevaluate for pt's status as well as consent for section. Breechpresentation verified by sono. SVE by MD Sanjeev Serna. * Ander Cueva RN - 07/19/2013 11:37 PM EST MD Boyer at bedside to evaluate pt and educate pt on anesthesia, if indicated. * Ander Cueva RN - 07/19/2013 10:22 PM EST Pt to be admitted for further evaluation at this time. IV placed, blood drawn, and LR bolus initiated per orders. * Ander Cueva RN - 07/19/2013 9:30 PM EST Pt [...] Anes PTL Lv 1 PRE 07/23 28w0d 0.794kg([id number]) M LTCS Spinal No Yes 2 CUR Prior to Admission Medications Prescriptions prior to admission Medication Sig Dispense Refill ??? whrxfogxzl-ajeyusyxzhaat-vqvhvbjx (FIORICET, ESGIC) per tablet Take 2 tablets [...] 12/17/2012 GCAMP Negative 12/25/2012 CHLMGENE Negative 12/25/2012 [id number] <0.19* 07/11/2013 AST 16 07/19/2013 No results found for this basename: GLUCDOSE, GLUCBASELINE, [id number], LABGLUC2, LABGLUC3, Lab Results Component Value Date GBSSCREEN Neg 07/11/2013 Recent Labs Basename 07/19/13 2200 WBC 11.9* HGB 11.7 HCT 34.6 PLATELET 153 Lab Results Component Value Date AST 16 07/19/2013 Lab Results Component Value Date CREATININE 0.65* 07/19/2013 Results for SHAWN SPEARS ( ) as of 07/20/2013 00:05 Ref. Range 07/19/2013 22:08 POC Sp Mcbain Latest Range: 1.002-1.030 1.010 POC pH, UA [...] by Sex: male Gestational Age: 37.6 weeks. Shelly Measurements: Weight: 7 lb 3.3 oz (3270 g) Height: 22.05 Head Circumference: 35.5 cm ChestCircumference: Observed Anomalies: Delivery Clinician: Jasmine Peralta Other Providers: Delivery Assist Delivery Nurse Wine Sales Representative Resident Resident Adatao Macey DAS Staff Present: yes Delivery Location: OR Living?: Yes APGARS One Minute Five Minutes Ten Minutes Skin Color: 0 1 Heart Rate: 2 2 Grimace: 2 2 Muscle Tone: 2 2 Breathin 2 Totals: 7 9 INTERVENTIONS [Baby information not available] Resuscitation:Suctioning Suctioning Method: Suctioning [2] Vocal Cords Visualized: Meconium: Resuscitation Comment: Shelly Medications: Meds Given: vitamin K erythromycin Naloxone Given?: [...] Jasmine Peralta - 07/20/2013 4:14 PM EST [facility] Operative Note Patient Name: Shawn Spears : [id number] MR#: [id number] Case Date: 07/20/2013 Surgeon: Surgeon(s) and Role: [...] blade was then removed. A liveborn male infant was delivered using the usual breech maneuvers. The cord was doubly clamped and cut. The was handed off to the awaiting pediatricians, [...] cleared of all clots. The patient and tolerated the procedure well and were in [...] Operative Note Patient Name: Shawn Spears : [id number] MR#: [id number] Case Date: 07/20/2013 Surgeon: Surgeon(s) and Role: [...] Operative Note Patient Name: Shawn Spears : [id number] MR#: [id number] Case Date: 07/20/2013 Surgeon: Surgeon(s) and Role: [...] Discharge date and time: 07/22/2013 Attending Physician: No att. providers found Care Provider: [facility] Discharge Diagnoses (Hospital Problems) and [...] Dilation: 0 Effacement: Effacement: 25 Station: Station: [facility] -4 Important Studies and Lab Data: US [...] 81 mg Quantity: 30 tablet Refills: 3 rrfpjugesk-sgyshczbsecrz-ddndbmzi per tablet Commonly known as: FIORICET, ESGIC [...] this in detail. Call your doctor or special education bus driver for: Fever more than 100.5 Heavy bleeding [...] prior to you follow up appointment. Your [facility] Provider can be reached during office hours at [facility] Follow[facility]up [facility] AFTER OFFICE HOURS for the jacquard plate maker or special education bus driver personnel adviser Provider electronic signature confirms that discharge instructions were reviewed with the patient. A copy was printed and given to the patient. Discharge References/Attachments: Discharge References/Attachments None Inpatient Provider Contact Information: OB service, Electronically Signed by: DERECK SERNA MD 07/23/2013 * Plan of Care - Ander Cueva RN - 07/20/2013 1:50 AM EST Problem: High-Risk/Critically Ill OB (Adult, Obstetric) Intervention: Hemodynamic Stabilization (Obstetric) Pt c/o chest pain that she associates with her feelings of my heart beating really fast. Vitals taken, and tachycardia is consistent with other vitals taken since admission. MD Sanjeev Serna notified.Pt to have EKG ordered. * Plan of Care - Ander Cueva RN - 07/19/2013 11:38 PM EST Problem: Pain, Acute (Adult, Obstetric) Intervention: Acute Pain: Signs and Symptoms Pt continues to c/o back pain. Heating pad ordered and set at 42 degrees. Will assess for comfort level following start. Pt expressing slight relief from backpain with use of heating pad. * Plan of Care - Ander Cueva RN - 07/19/2013 11:37 PM EST Problem: [...] 07/19/2013 10:00 PM EST TYPE AND SCREEN (MC/CGP/ANGELA) STAT 07/19/2013 10:00 PM EST ASPARTATE AMINOTRANSFERASE [...] AM EST 07/22/2013 7:49 AM EST Felecia Haldey MD HEMATOLOGY ORDERABLE S Performing Organization Address City/[facility]/ZIP Co de Phone Number [facility] * (ABNORMAL) Creatinine (07/22/2013 7:46 AM EST) Creatinine 0.68(L) 0.70 - 1.20 mg/dL [facility] Comment: Please note that the pediatric reference intervals supplied above were not validated at [facility]. Results from pediatric patients should be interpreted in conjunction to the patient's age, height and muscle mass. Est Glomerular Filtration Rate >60 >=60 [facility] Comment: This estimated GFR (eGFR) value [...] Hadley MD CHEMISTRY ORDERABLES Performing Organization Address [facility] Co de Phone Number [facility] * Aspartate Aminotransferase (07/22/2013 7:46 AM EST) Pathologist [facility] Aspartate Aminotransferase 11 5 - 30 unit/L [facility] Blood specimen (specimen) 07/22/2013 7:46 AM EST 07/22/2013 7:49 AM EST Narrative Resulting Agency Comment Spec In Lab Felecia Hadley MD CHEMISTRY ORDERABLES Performing Organization Address City/[facility] Co de Phone Number [facility] * (ABNORMAL) CBC (with Diff) (07/22/2013 7:46 [...] Lab Felecia Hadley MD HEMATOLOGY ORDERABLE S [facility] * (ABNORMAL) Differential, Automated (07/21/2013 7:51 AM EST) Pathologist [facility] Neutrophil % 77.0(H) 34.0 - 71.0 % [...] MD HEMATOLOGY ORDERABLE S Performing Organization Address [facility] Co de Phone Number [facility] * Scan, Peripheral Blood (07/21/2013 7:51 AM EST) Pathologist [facility] Plat estimate Decreased [facility] RBC Morphology Normal CERNE R MILLENNI[facility] Plat, Giant Less than 1 /HPF [facility] Blood specimen (specimen) 07/21/2013 7:51 AM EST 07/21/2013 7:51 AM EST Narrative Resulting Agency Comment Spec In Lab Felecia Hadley MD HEMATOLOGY ORDERABLE S Performing Organization Address [facility]/ZIP Co de Phone Number [facility] * (ABNORMAL) Creatinine (07/21/2013 7:51 AM EST) Pathologist [facility] Creatinine 0.54(L) 0.70 - 1.20 mg/dL [facility] Comment: Please note that the pediatric reference intervals supplied above were not validated at [facility]. Results from pediatric patients should be interpreted [...] Hadley MD CHEMISTRY ORDERABLES Performing Organization Address [facility] Co de Phone Number [facility] * Aspartate Aminotransferase (07/21/2013 7:51 AM EST) Aspartate Aminotransferase 11 5 - 30 unit/L [facility] Blood specimen (specimen) 07/21/2013 7:51 AM EST 07/21/2013 7:51 AM EST Narrative Resulting Agency Comment Spec In Lab Felecia Hadley MD CHEMISTRY ORDERABLES Performing Organization Address [facility] Co de Phone Number [facility] * (ABNORMAL) CBC (with Diff) (07/21/2013 7:51 AM EST) White Blood Cell 6.8 4.0 - 10.0 x10(3)/mc L [facility] Red Blood Cell 2.65(L) 3.93 - 5.22 x10(6)/mc L [facility] Hemoglobin 7.9(L) 11.2 - 15.7 gm/dL [facility] Comment: Called by: NIKITA, Read back by: HUI MELGOZA, Date-Time: 07-21-13 0826. Hematocrit 23.3(L) 34.0 - [...] Felecia Hadley MD HEMATOLOGY ORDERABLE S [facility] * Surgical Pathology Report (07/20/2013 4:36 PM EST) Final Diagnosis ? [facility] ? Provider: ?? RIC DARBY ?Pt. Name: ?? SHAWN SPEARS ? Acc #: ?[id number] ?Pt. ? Col Date: ?? 07/20/2013 ?/Sex: ?1995,(17 years),Female ? Rec Date: ?? 07/22/2013 ? LOC: ?BP ? SURGICAL PATHOLOGY ? ---Pathologic Diagnosis--- ? Third trimester placenta, cord and membranes: ? Negative for chorioamnionitis or funisitis. ? CR-0 ? 07/26/13 ? KO ? 07/26/13 Verified by: ? Noy MAGUIRE, Maggie ? Pathologist ? (Electronic Signature) ? The [...] Diagnosis: ? Same 07/26/2013 10:17 AM EST [facility] TISSUE SPECIMEN FROM PLACENTA / Unknown 07/20/2013 4:36 PM EST 07/20/2013 4:36 PM EST Ric Darby MD PATHOLOGY/CYTOLOGY O ROSS Performing Organization Address City/State/[facility] Co de Phone Number [facility]ER [facility]ENNI[facility] [place] [address] * Specimen to Pathology (NON-OR) (07/20/2013 4:36 PM EST) AP Specimen 07/20/2013 4:36 PM EST 07/20/2013 4:36 PM EST Narrative [facility] - 07/20/2013 4:36 PM EST Specimen requisition ordered. ??Separate Pathology report to follow Felecia Hadley MD PATHOLOGY/CYTOLOGY O RDERABLES [facility] * CT chest pulmonary embolism with contrast [...] EKG 12 Lead (07/20/2013 2:08 AM EST) Ventricular rate 143 BPM MUSE SYSTEM Atrial Rate 143 BPM MUSE SYSTEM P-R Interval 122 ms MUSE SYSTEM QRS Duration 68 ms MUSE SYSTEM Q-T Interval 290 ms MUSE SYSTEM QTC Calculated (Bezet) 447 ms MUSE SYSTEM Calculated P [place] 41 degrees MUSE SYSTEM Calculated R [place] 60 degrees MUSE SYSTEM Calculated T [place] 19 degrees MUSE SYSTEM INTERPRETATION Sinus tachycardia Nonspecific ST abnormality Abnormal ECG No previous ECGs available Confirmed by NEO IRWIN M.D. ([id number]) on 07/20/2013 4:29:00 PM MUSE SYSTEM 07/20/2013 2:08 AM EST 07/20/2013 4:29 PM EST Felecia Hadley MD ECG ORDERABLES MUSE SYSTEM * (ABNORMAL) POCT urine dipstick (07/19/2013 10:08 PM EST) Pathologist [facility] POC Sp Mcbain 1.010 1.002 - 1.030 POC pH, UA [...] (ABNORMAL) Differential, Automated (07/19/2013 10:00 PM EST) Neutrophil % 88.1(H) 34.0 - 71.0 % [...] Absolute 0.03 0.00 - 0.05 x10(3)/mc L [facility] Blood specimen (specimen) 07/19/2013 10:00 PM EST 07/19/2013 10:23 PM EST Felecia Hadley MD HEMATOLOGY ORDERABLE S [facility] * Antibody screen (07/19/2013 10:00 PM EST) Ab Screen Interp Negative [facility] Expires at 2359 on: [id number] [facility] Blood specimen (specimen) 07/19/2013 10:00 PM EST 07/19/2013 10:56 PM EST Narrative Resulting Agency Comment Spec In Lab Felecia Hadley MD BLOOD BANK LAB ORDER ALEA [facility] * ABO/Rh Typing (07/19/2013 10:00 PM EST) ABORH Type A Pos [facility] Blood specimen (specimen) 07/19/2013 10:00 PM EST 07/19/2013 10:56 PM EST Narrative Resulting Agency Comment Spec In Lab Felecia Hadley MD BLOOD BANK LAB ORDER ALEA Performing Organization Address [facility] Co de Phone Number [facility] * (ABNORMAL) Creatinine (07/19/2013 10:00 PM EST) Creatinine 0.65(L) 0.70 - 1.20 mg/dL [facility] Comment: Please note that the pediatric reference intervals supplied above were not validated at [facility]. Results from pediatric patients should be interpreted in conjunction to the patient's age, height and muscle mass. Est Glomerular Filtration Rate >60 >=60 [facility] Comment: This estimated GFR (eGFR) value [...] Hadley MD CHEMISTRY ORDERABLES Performing Organization Address [facility] Co de Phone Number [facility] * Aspartate Aminotransferase (07/19/2013 10:00 PM EST) Aspartate Aminotransferase 16 5 - 30 unit/L [facility] Blood specimen (specimen) 07/19/2013 10:00 PM EST 07/19/2013 10:23 PM EST Narrative Resulting Agency Comment Spec In Lab Felecia Hadley MD CHEMISTRY ORDERABLES Performing Organization Address City/[facility] Co de Phone Number [facility] * (ABNORMAL) CBC (with Diff) (07/19/2013 10:00 [...] Felecia Hadley MD HEMATOLOGY ORDERABLE S [facility] documented in this encounter Visit Diagnoses Not on filedocumented in this encounter Active and Recently Administered Medications Times are shown in EST. Scheduled Medication Order 07/20/2013 07/21/2013 07/22/2013 citric acid-sodium citrate (BICITRA) oral solution 30 mL (COMPLETED) 30 mL, Oral, ONCE, 1 dose, On 07/20/13 at 1400, Routine 1329 (Given - Provider: Macey Borrego RN) docusate sodium (COLACE) capsule 100 mg 100 mg, Oral, 2 TIMES DAILY, First dose on 07/20/13 at 2100, Until Discontinued, Routine 2233 (Given - Provider: Soledad Hale RN) 1156 (Given - Provider: Nicole Borja RN)2000 (Given - Provider: Dena Sun RN) 0900 (Due)1047 (Given - Provider: Minnie Christian, ULYSSES) famotidine (PEPCID) injection 20 mg (CANCELED) 20 mg, Intravenous, EVERY 12 HOURS SCHEDULED (2 times per day), First dose on 07/20/13 at 0200, Until Discontinued 0209 (Given - Provider: Ander Cueva RN)0900 (Due)2100 (Due) morphine 10 mg/mL carpuject 10 mg (COMPLETED) 10 mg, Intramuscular, ONCE, 1 dose, On 07/20/13 at 0200, Routine 0145 (Given - Provider: Ander Cueva RN) morphine 10 mg/mL carpuject 5 mg (COMPLETED) 5 mg, Intravenous, ONCE, 1 dose, On 07/20/13 at 0200, Routine 0145 (Given - Provider: Ander Cueva RN) promethazine (PHENERGAN) injection 25 mg (COMPLETED) 25 mg, Intravenous, ONCE, On 07/20/13 at 0200, 1 dose, Avoid extravasation 0145 (Given - Provider: Ander Cueva RN - Comment: IVPB) Continuous Medication Order 07/20/2013 07/21/2013 07/22/2013 lactated ringers infusion (CANCELED) 100 mL/hr, Intravenous, CONTINUOUS, Starting on 07/20/13 at 1700, Until 07/22/13 at 1536, Administer until tolerating clear liquids then saline lock. 1800 (New Bag - Provider: Nicole Borja RN) 2001 (Stopped - Provider: Dena Sun RN - [...] Soledad Hale RN)1157 (Given - Provider: Nicole Borja RN) OXYcodone (ROXICODONE) immediate release tablet 5-10 mg 5-10 mg, Oral, EVERY 4 HOURS PRN, Starting on 07/20/13 at 1636, Until 07/22/13 at 1536, Pain, Routine 174 (Given - Provider: Nicole Borja RN) 0002 (Given - Provider: Soledad Hale, ULYSSES)1300 (Given - Provider: Nicole Borja RN)1999 (Given - Provider: Dena Sun RN) 0036 [...] Routine documented in this encounter Care Teams Caddy/Caddie Supervisor Relationship Specialty Start Date End Date Domonique Sweeney, [facility]UDIS [facility] [address] [place] [address] PCP - General 11/30/12 06/12/18 documented as of this encounter
--- OUTSIDE RECORDS SUMMARY | 2024-06-26 16:45 | XMS_ITS | Encounter Summary ---
[place] [address] Care Team Providers Care Sales Account Specialist Name Role Phone Domonique Sweeney Judy CABA Primary Care Provider [phone]- [phone] Reason for Visit * Reason Onset Date Comments Medical Care Coordination 07/04/2013 Encounter Details Date Type Department Care Team (Late st Contact Info) Description 07/04/2013 Telephone Obstetrics [place] [phone] Isaak Watson, RN Medical Care Coordination Social History Tobacco [...] encounter Miscellaneous Notes * Telephone Encounter - Isaak Watson RN - 07/04/2013 10:40 AM EST Carol calls because she has not heard from [facility] re: scheduling her NSTs. I have on my voicemail a message from Yfn Alejo RN, stating that he has been trying to contact Carol re: her NSTs, but she has not returned his calls. I have advised Carol to call Yfn at [phone] to schedule her NSTs,which she will do today. * Telephone Encounter - Isaak Watson RN - 07/04/2013 10:39 AM EST Message copied by ISAAK WATSON on MonJul 04, 2013 10:39 AM ------ Message from: CHUCKY GUERRERO Created: MonJul 04, 2013 9:52 AM Please call, she said that she has not heard from [facility] about scheduling a NST. [phone] documented in this encounter Plan of Treatment Not on file documented as of this encounter Visit Diagnoses Not on filedocumented in this encounter Care Teams Sales Account Specialist Relationship Specialty Start Date End Date Domonique Sweeney APRN [facility] [address] [place] [address] PCP - General 11/30/12 06/12/18 documented as of this encounter
--- OUTSIDE RECORDS SUMMARY | 2024-06-26 16:45 | XMS_ITS | Encounter Summary ---
[place] [address] Care Team Providers Care Entomology Teacher Name Role Phone Shaneka Mae APRN Primary Care Provider [phone] Reason for Visit * Reason Comments Hypertension * Auth/Cert Specialty Diagnoses / Procedures Referred By Contac t Referred To Contact Diagnoses Preeclampsia, severe, second trimester 03/11 WITH SEVERE PRE ECLAMPSIA Procedures EMERGENCY IPI Referral ID Status Reason Start Date Expiration Date Visits Re quested Visits Authorized [id number] 1 1 Encounter Details Date Type Department Care Team (Late st Contact Info) Description 06/18/2018 7:57 AM EST - 06/18/2018 10:00 [place] [phone] Earlene Umanzor MD @ DELIVERY ([facility]VU 16.13) Social History [...] Sign Reading Time Taken Comments Blood Pressure 152/102 06/18/2018 8:02 AM EST Pulse 75 06/18/2018 8:02 AM EST Temperature 37 ??C (98.6 ??F) 06/18/2018 8:02 AM EST Respiratory Rate 16 06/18/2018 8:02 AM EST Oxygen Saturation 99% 06/18/2018 12:22 AM EST Inhaled Oxygen Concentration - - Weight 83.5 kg (184 lb 1.6 oz) 06/17/2018 4:50 A M EST Height 162.6 cm (5' 4.02) 06/14/2018 5:00 PM ES T Body Mass Index 31.58 06/14/2018 5:00 PM EST documented in this encounter Discharge Summaries * Scooter Canales MD - 06/21/2018 9:36 AM EST Images from the original note were not included. Discharge Summary Patient Name: Shawn Lisa Patient Age: 22 y.o. Language: Nigerian Race: White Ethnicity: Not nor Admit date: 06/13/2018 Discharge date and time: 06/21/18 Attending Physician: Severo Drake MD Discharge Physician: Almaz Drake MD Care Provider: [facility] Referring Hospital: [facility] Follow-up Recommendations for Providers: Blood pressure checks days 3 and 7 Routine six week visit Inpatient Provider Contact Information: [facility] EDUCATION DEPARTMENT REGISTRAR Department, Discharge Diagnoses (Hospital Problems) and Secondary Diagnoses (Chronic Problems) Active Hospital Problems Diagnosis ??? Preeclampsia, severe, second trimester ??? Hx of section X2 ??? History of delivery with first at 28w at [facility] for preeclampsia with severe features ??? History of gestational hypertension in second , delivered at [facility] at 37w4d Resolved Hospital Problems No resolved [...] US. She is admitted in transport from [facility] for management of preeclampsia with severe features by blood pressure. She was admitted at [facility] on 06/06/2018 for blood pressure management. Her [...] for seizure prophylaxis and was transported to [facility] for further evaluation. ?? Her has been complicated by: 1. History of prior delivery x 2 2. History of preeclampsia with severe features, delivery at 28w at [facility], 2010 3. History of gestational hypertension with delivery at 37w at [facility], 2013 4. Asthma Hospital Course Including Delivery [...] Information for the patient's : Aleyda Lisa [[id number]] INFORMATION Aleyda Lisa 06/18/2018 11:15 AM by Upper Segment Vertical Sex: female Gestational Age: 26w3d Guild Measurements: Weight: 1 lb 5.2 oz (600 g) APGARS One Minute Five Minutes Ten Minutes Totals: 4 8 EBL: 500mL Vital signs at Discharge: BP: (!) 153/108(ICN at bedside, infant doing poorly. Dr Hicks and Solange aware), [...] - Discuss With Your Provider Dose Details gcitdwtjdy-wpnvgzeqvnqnl-wrlwibln 50-325-40 mg Tab Commonly known as: FIORICET, [...] the OB Clinic. Call your doctor or professor of industrial technology for: ??? Seizure (call 911) ??? Headache [...] follow up appointment. You [facility] call the [facility] [place] at any time for guidance or for answers to questions that come up prior to you follow up appointment. Your [facility] Provider can be reached during office hours at ??? Midwives ??? Obstetricians ??? Services AFTER OFFICE HOURS for the solution architect or professor of industrial technology vest front presser General Instructions None Discharge References/Attachments None documented [...] For More Information: [email or web address] or refer to [facility]???s Your and Childbirth: Month to Month book which you may have received from the OB Clinic. Call your doctor or professor of industrial technology for: ??? Seizure (call 911) ??? Headache [...] up appointment. You [facility] call the [facility] at any time for guidance or for answers to questions that come up prior to you follow up appointment. Your [facility] Provider can be reached during office hours at ??? Midwives ??? Obstetricians ??? Services AFTER OFFICE HOURS for the solution architect or professor of industrial technology vest front presser Provider electronic signature confirms that discharge instructions [...] the OB Clinic. Call your doctor or professor of industrial technology for: ??? Seizure (call 911) ??? Headache [...] follow up appointment. You may call the [facility] [place] at any time for guidance or for answers to questions that come up prior to you follow up appointment. Your [facility] Provider can be reached during office hours at ??? Midwives ??? Obstetricians ??? Services AFTER OFFICE HOURS for the solution architect or professor of industrial technology vest front presser documented in this encounter Medications at Time [...] of delivery with first at 28w at [facility] for preeclampsia with severe features 06/13/2018 ??? Hospital-History of gestational hypertension in second , delivered at [facility] at 37w4d 06/13/2018 Reason for Nutrition Intervention: [...] noted. Assessment: Patient seen regarding hospital LOS. [facility] Attendant introduced self and role. Patient made aware of her current diet order w/o questions. She reported a good appetite without difficulty chewing or swallowing. She is tolerating her current diet without nausea or vomiting. Patient declined open containers and cut up foods with meals. Pt is ordering her meals daily w/o questions. [facility] Attendant providedpt with a cafeteria menu to give [...] controlled. Pumping and using donor milk for nutrition without difficulty. Ambulating without weakness/dizziness, tolerating [...] no edema. Labs: Recent Labs 06/19/18 0832 06/18/18 2020 06/18/18 0830 WBC 16.7* 22.5* 12.7* HGB 10.7* 11.1* 13.1 HCT 30.5* 32.3* 36.9 PLATELET 196 199 212 Recent Labs 06/19/ 0832 06/18/18 2020 06/18/18 0830 CREATININE 0.61* 0.58* 0.65* Assessment: POD#3 [...] Extremities: nontender, no edema. Labs: Recent Labs // 0832 06/18/18 2020 06/18/18 0830 WBC 16.7* 22.5* 12.7* HGB 10.7* 11.1* 13.1 HCT 30.5* 32.3* 36.9 PLATELET 196 199 212 Recent Labs /01/28 0832 06/18/18 2020 06/18/18 0830 CREATININE 0.61* 0.58* 0.65* Assessment: POD#2. [...] CANALES MD PGY4 06/20/2018 Associated attestation - eGorgia Sarmiento MD - 06/20/2018 9:51 AM EST [...] MD Ordered PIS & symphony breast pump Vendor:[facility] # [phone] * Scooter Canales MD - 06/18/2018 4:50 AM EST Obstetrical Antepartum Progress Note Shawn Lisa is a 22 y.o. female with an TYE of 09/21/2018, by 8wk ultrasound who is [id number] gestation, admitted for management of preeclampsia with severe features. This is hospital day#6. Active Problems: Patient Active Problem List Diagnosis Code ??? Preeclampsia, severe, second trimester O14.12 ??? Hx of section X2 Z98.891 ??? History of delivery with first at 28w at [facility] for preeclampsia with severe features Z87.51 ??? History of gestational hypertension in second , delivered at [facility] at 37w4d Z87.59 24 Hour Events -- [...] Interpretation: Reactive NST yesterday. Bedside Ultrasound BPP 01/17 Presentation: cephalic MVP 2.3 cm Placenta: anterior [...] 09/21/2018 by 8 wk ultrasound who is [id number] gestation, admitted for management of preeclampsia with [...] would want this performed regardless of her infant's outcome. She has private insurance and does [...] Yan MD 06/17/2018 1:41 PM * Alistair Goetz, RN - 06/17/2018 10:52 AM EST Pt [...] comments) (pounding) Nonverbal Indicators of Pain grimace MD Yan, Irais, and Felton notified. PRN Compazine given. EFM [...] of delivery with first at 28w at [facility] for preeclampsia with severe features Z87.51 ??? History of gestational hypertension in second , delivered at [facility] at 37w4d Z87.59 24 Hour Events -- [...] 09/21/2018 by 8 wk ultrasound who is wj41n6s gestation, admitted for management of preeclampsia with [...] NST Start Time 2045 NST Stop Time 002 I personally reviewed the heart rate tracing. [...] of delivery with first at 28w at [facility] for preeclampsia with severe features Z87.51 ??? History of gestational hypertension in second , delivered at [facility] at 37w4d Z87.59 24 Hour Events --no [...] 09/21/2018 by 8 wk ultrasound who is [id number] gestation, admitted for management of preeclampsia with [...] I agree with the description as outlined. ORNE GILMORE MD * Maribell Wynn MD - [...] of delivery with first at 28w at [facility] for preeclampsia with severe features Z87.51 ??? History of gestational hypertension in second , delivered at [facility] at 37w4d Z87.59 24 Hour Events --s/p [...] 09/21/2018 by 8 wk ultrasound who is [id number] gestation, admitted for management of preeclampsia with [...] of delivery with first at 28w at [facility] for preeclampsia with severe features Z87.51 ??? History of gestational hypertension in second , delivered at [facility] at 37w4d Z87.59 24 Hour Events --Magnesium [...] 09/21/2018 by 8 wk ultrasound who is [id number] gestation, admitted for management of preeclampsia with [...] PM EST Obstetrical Admission Note Referring Hospital: [facility] Referring Provider: Dr. Tobias Ruiz MD Initial Care Provider (if early referral or co-managed by [facility]): [facility] Chief Complaint: Shawn Lisa was admitted today secondary to preeclampsia with severe features by blood pressure. Shawn Lisa is a 22 y.o. at 25w5d weeks gestation by 8w US. She is admitted in transport from [facility] for management of preeclampsia with severe features by blood pressure. She was admitted at [facility] on 06/06/2018 for blood pressure management. Her [...] for seizure prophylaxis and was transported to [facility] for further evaluation. Her has been complicated by: 1. History of prior delivery x 2 2. History of preeclampsia with severe features, delivery at 28w at [facility], 2010 3. History of gestational hypertension with delivery at 37w at [facility], 2013 4. Asthma Review of Systems- Negative to complete review except as noted in the HPI. Obstetric Review of Systems Total Weight Gain this Not found. Movement: normal Contractions: none Leaking: None Bleeding; none now Preeclampsia signs and symptoms: None Active Hospital Problems Diagnosis ??? Preeclampsia, severe, second trimester ??? Hx of section X2 ??? History of delivery with first at 28w at [facility] for preeclampsia with severe features ??? History of gestational hypertension in second , delivered at [facility] at 37w4d Resolved Hospital Problems No resolved problems to display. There are no active non-hospital problems to display for this patient. Past Medical History: Diagnosis Date ??? Asthma excercise induced ??? Hypertension only with preeclampsia Past Surgical History: Procedure Laterality Date ??? APPENDECTOMY 2008 ??? SECTION 2010 ??? PRO DELIVERY ONLY 07/20/2013 @ DELIVERY performed by Don Boudreaux MD at [facility] OB History Para Term AB [...] Intrauterine route once. Taking at Unknown ??? bzhyzojdfv-xpdnaiesnlanm-utgjbidd (FIORICET, ESGIC) per tablet Take 2 tablets [...] Variability: moderate, Accels: yes 10x10, Decels: none, [employer]: none Category: I Record Review Labs Lab Results Component Value Date ABORH A Pos 07/19/2013 HCT 28.1 (L) 07/22/2013 HGB 9.6 (L) 07/22/2013 MCV 88.6 07/22/2013 HEPBSAG Negative 12/17/2012 RUBLIGG Negative (A) 12/17/2012 HIV12 Negative 12/17/2012 GCAMP Negative 12/25/2012 CHLMGENE Negative 12/25/2012 A34TLXFBEC <0.19 (H) 07/11/2013 AST 11 07/22/2013 Lab [...] seen and discussed with Dr. Hadley, Attending EDUCATION DEPARTMENT REGISTRAR. Niraj Lewis MD PGY3 06/13/2018 Attending note [...] (Interventions Implemented as Appropriate) 06/20/18 0450 06/20/18 2300 Coping/Psychosocial Plan Of Care Reviewed With -- [...] Mutuality Outcome: Ongoing (Interventions Implemented as Appropriate) 06/16/18 0452 06/19/18 1723 06/20/18449 Individualization Patient Specific Preferences -- [...] Handling Outcome: Ongoing (Interventions Implemented as Appropriate) 06/20/1874106/20/182299 Daily Care Interventions Self-Care Promotion -- independence [...] making regular trips to ICN to visit infant. Denies vaginal bleeding. IVpatent. PLAN MOVING FORWARD: [...] Handling Outcome: Ongoing (Interventions Implemented as Appropriate) 06/20/18741 Daily Care Interventions Self-Care Promotion independence encouraged [...] Outcome: Ongoing (Interventions Implemented as Appropriate) 06/17/18 0906/20/18 0450 Interdisciplinary Rounds/Family Conf Summary increase Labetalol [...] Outcome: Ongoing (Interventions Implemented as Appropriate) 06/20/18 1849 ( Delivery) Problems Assessed ( ) all [...] Ongoing (Interventions Implemented as Appropriate) 06/20/18 0450 Coping/Psychosocial Plan Of Care Reviewed With patient [...] PGY4 06/18/2018 Information for the patient's : Kacie Baby Girl [[id number]] DELIVERY SUMMARY FOR Baby Ramiro Lisa (please [...] Combined est. blood loss (mL): 500 Delivery () Delivery Date: 06/18/18 Delivery Date: 11:15:00 AM Sex: Female Presentation: Vertex Attempted ?: No Delivery Type: Delivery Type (Specific): Upper Segment Vertical Major Indications - : maternal medical condition Contributing Factors - : previous low vertical Shoulder Dystocia Shoulder dystocia present?: No Delivery Information Delivery Location: [place] Delivering Clinician: Scooter Canales MD ICN Staff Present: Yes Other Personnel: Provider Role Alistair Goetz, roller structural mill Nurse Earlene Umanzor MD Claims Technician Dania Ribeior RN Delivery Assist Tameka Mina RN Charge Nurse Mary Ann Bonilla RN Registered Nurse Paloma Albarran LNA Orchid Superintendent Anesthesia Method: Combined Spinal/Epidural Cord Vessels: 3 [...] Grunting, retractions, and suprasternal tug increased and infant at 25 minutes was intubated after 3 attempts. HR>120 throughout. Maternal Guild Feeding and Skin to Skin Maternal Choice for (s) Feeding on Admission: Reason skin to skin not initiated: Acuity Medications Medications Given: vitamin K, erythromycin Measurements Weight: 600 g Length: 0.305 m Head circumference: 0.225 m Placenta Date and Time: 06/18/2018 11:17:00 AM Removal: Expressed Labor Length 3rd stage: 0h 02m * Op Note - Scooter Canales MD - 06/18/2018 12:54 PM EST [facility] Operative Note Patient Name: Shawn Lisa : [id number] MR#: [id number] Case Date: 06/18/2018 Surgeon: Surgeon(s) and Role: * Earlene Umanzor MD - Primary * Scooter Canales MD - Resident-Roof Bolter Preoperative diagnosis: 1. Preeclampsia with severe features [...] ligation Anesthesia: combined spinal epidural Findings: Female in cephalic presentation. APGARS 4 and 8. [...] with [place]cie[place]- Smellie-Veit maneuver. Live born female was delivered. The cord was doubly clamped and cut. The infant was handed off to the [facility] pediatricians, who assigned Apgars of 4 and [...] fallopian tube was subsequently grasped with a [place] [employer] clamp. A window was made in the [...] Operative Note Patient Name: Shawn Lisa : [id number] MR#: [id number] Case Date: 06/18/2018 Surgeon: Surgeon(s) and Role: * Earlene Umanzor MD - Primary * Scooter Canales MD - Resident-Roof Bolter Preoperative diagnosis: 26w3d IUP, preeclampsia with severe [...] Outcome: Ongoing (Interventions Implemented as Appropriate) 06/16/18 0452 06/17/182036 Coping/Psychosocial Plan Of Care Reviewed With -- [...] were not included. Infiltration/Extravasation Scale Shawn Lisa [id number] BP01/BP01-A Infiltration appearance: Infiltration harm % for [...] monitoring of infiltration/extravasation Name of MD contacted #[phone] 9:42 PM Name of RN contacted ULYSSES Das 9:42 PM Name of Pharmacist if consulted NA 9:42 PM Plastics Provider contacted: no 9:42 PM Name of Plastics MD (if consulted) (Mandatory photo for infiltrations/ extravasations scoring a stage 2 or greater, but recommended for stage 1. Include measuring tape and identifier in the photo) AIR BOATSWAIN CARING FOR THIS PATIENT WILL CONTINUE TO MONITOR AND WILL ASSUME CARE, VASCULAR ACCESS WILL NOT FOLLOW THIS EVENT AT THE SIGNING OF THIS NOTE. * Plan of Care - Michelle Peralta RN - 06/16/2018 5:04 AM EST Problem: Patient Care Overview Goal: Plan of Care Review Outcome: Ongoing (Interventions Implemented as Appropriate) 06/16/18451 Coping/Psychosocial Plan Of Care Reviewed With patient [...] Assessment Outcome: Ongoing (Interventions Implemented as Appropriate) 06/16/18 0452 Discharge Needs Assessment Concerns To Be Addressed [...] US. She is admitted in transport from [facility] for management of preeclampsia with severe features by blood pressure Past Medical History: Diagnosis Date ??? Asthma excercise induced ??? Hypertension only with preeclampsia Hospitalizations Within the Past 30 Days: 3 admission this past week at [facility] for pre-eclampsi Anticipated Length Of Stay (If known): To be determined Current Decision-Making Capacity: Patient has full capacity Advance Care Planning: none in chart Current Coping/Education/Information Needs: Coping okay, states that she had her oldest son at 28 weeks, so has experience with this hospital, [facility], [facility], and the N. Current Functional Ability: Hospitalized, up ad lisa Functional Status Prior to Admission: Independent Home Environment: lives in [place], [place] with her , Bucky Pham, and their 2 boys (ages 7and 4) Social & Family Supports/Community Resources: . 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 They have local support. Behavioral Health History: Denies Substance Use/Abuse: Never smoked Other Pertinent/Service Specific Information: Plans to name her baby girl: Tatiana Leroy [facility] [address]/Prescription Coverage: Primary Insurance: [employer] OOS Secondary Insurance: no Prescription Coverage: [employer] Preferred Pharmacy: [facility] in [place], [place] Other: no Primary Care Provider: Shaneka Mae, CORRUGATOR SUPERVISOR [phone] Patient/Caregiver Goals of Treatment: To remain for as long as medically safe to do so Potential Needs for Transition of Care: Rehab/SNF: no Home Health: will accept VNA for infant when she is discharged home DME: Will need breast pump Dialysis: no Community Resources: knows about [facility] and [facility] Transportation: yes Other: no Anticipated Barriers to Discharge/Special Considerations: no Assessment: 22 y.o. at 25w5d weeks gestation admitted in transport from [facility] for management of preeclampsia with severe features [...] of care planning. VANESSA SERNA RN Pager: [phone] * Plan of Care - Izzy Domínguez [...] CPG). Outcome: Ongoing (Interventions Implemented as Appropriate) 06/14/182099 High-Risk/Critically Ill OB Patient Problems Assessed (Critically [...] Outcome: Ongoing (Interventions Implemented as Appropriate) 06/13/18 19206/14/182002 Discharge Needs Assessment Concerns To Be Addressed [...] was referred as a maternal- transfer from [facility]. Relevant History: She is admitted in transport from [facility] for management of preeclampsia with severe features by blood pressure. She was admitted at [facility] on 06/06/2018 for blood pressure management. Her [...] for seizure prophylaxis and was transported to [facility] for further evaluation. Recommendations and advice discussed: [...] for serious problems associated with prematurity with termination clerk neurodevelopmental consequences such as intracranial bleeding, eye [...] Outcome: Ongoing (Interventions Implemented as Appropriate) 06/13/18 19206/13/182008 Coping/Psychosocial Plan Of Care Reviewed With -- [...] Ongoing (Interventions Implemented as Appropriate) 06/13/18 192 Discharge Needs Assessment Concerns To Be Addressed [...] Ongoing (Interventions Implemented as Appropriate) 06/13/18 192 Discharge Needs Assessment Concerns To Be Addressed [...] 8:30 AM EST DIFFERENTIAL, AUTOMATED STAT 06/18/19 19 8:30 AM EST CREATININE STAT 06/18/2018 8:30 AM EST CBC (WITH DIFF) STAT 06/18/2018 8:30 AM EST ASPARTATE AMINOTRANSFERASE STAT 06/18/2018 8:30 AM EST HEMOGRAM Routine 06/18/2018 2:30 AM EST DIFFERENTIAL, AUTOMATED Routine 06/18/19 19 2:30 AM EST CREATININE Routine 06/18/2018 2:30 AM EST CBC (WITH DIFF) Routine 06/18/2018 2:30 AM EST ASPARTATE AMINOTRANSFERASE Routine 06/18/2018 2:30 AM EST ASPARTATE AMINOTRANSFERASE Routine 06/17/2018 8:00 PM EST HEMOGRAM Routine 06/17/2018 6:55 PM EST DIFFERENTIAL, AUTOMATED Routine 06/17/19 19 6:55 PM EST CREATININE STAT 06/17/2018 6:55 [...] 06/13/2018 2:46 PM EST TYPE AND SCREEN ([facility]/ANGELA) STAT 06/13/2018 2:46 PM EST documented in this encounter Results * (ABNORMAL) Differential, Automated (06/19/2018 8:32 AM EST) Neutrophil % 81.3 % [facility] Neutrophil Absolute 13.60(H) 1.70 - 6.10 x10(3)/ L [facility] Lymph % 13.0 % [facility] Lymphocytes Abs 2.2 0.9 - 3.2 x10(3)/[facility] Monocyte % 4.2 % [facility] Monocyte Abs 0.7 0.3 - 0.9 x10(3)/[facility] Eos % 0.5 % [facility] Eosinophils Abs 0.1 0.0 - 0.4 x10(3)/[facility] Basophil % 0.4 % [facility] Baso Absolute 0.1 0.0 - 0.1 x10(3)/[facility] Immature Gran % 0.60 % [facility] Comment: Immature granulocytes(IG's)percentage and absolute count will include metamyelocytes, myelocytes, and promyelocytes. Blood smears from CBCs yielding IG's will be scanned manually for concordance. If this scan disagrees with the automated IG or if promyelocytes are noted, a manual differential will be performed. Immature Gran Absolute 0.10(H) 0.00 - 0.04 x10(3)/ L [facility] Blood specimen (specimen) 06/19/2018 8:32 AM EST 06/19/2018 8:43 AM EST Narrative Resulting Agency Comment Spec In Lab Scooter Canales MD HEMATOLOGY ORDERABLE S [facility] [place] [address] * (ABNORMAL) Hemogram (06/19/2018 8:32 AM EST) White Blood Cell 16.7(H) 4.0 - 9.5 x10(3)/mc L [facility] Red Blood Cell 3.49(L) 4.00 - 5.21 x10(6)/mc L [facility] Hemoglobin 10.7(L) 11.7 - 15.5 gm/dL [facility] Hematocrit 30.5(L) 35.7 - 45.8 % [facility] Mean Cell Volume 87.4 82.6 - 94.4 fL [facility] Mean Cell Hemoglobin 30.7 27.1 - 32.0 pg [facility] Mean Cell Hemoglobin Concentration 35.1(H) 31.7 - 35.0 gm/dL [facility] Platelet 196 145 - 357 x10(3)/mc L [facility] RDW Standard Deviation 41.4 37.0 - 46.0 fL [facility] RDW coefficient of variation 12.9 11.5 - 14.1 % [facility] Mean Platelet Volume 11.4 7.6 - 12.9 fL [facility] NRBC% auto 0.0 % [facility] NRBC Absolute 0.000 0.000 - 0.000 x10(3)/ L [facility] Blood specimen (specimen) 06/19/2018 8:32 AM EST 06/19/2018 8:43 AM EST Narrative Resulting Agency Comment Spec In Lab Scooter Canales MD HEMATOLOGY ORDERABLE S [facility] [place] [address] * (ABNORMAL) Creatinine (06/19/2018 8:32 AM EST) Pathologist [facility] Creatinine 0.61(L) 0.70 - 1.20 mg/dL [facility] Est Glomerular Filtration Rate 127 >=60 mL/min/1.7 3 m?? [facility] Comment: The eGFR was calculated using the CKD-EPI equation. As with all creatinine based estimates of kidney function, eGFR values calculated with the CKD-EPI equation are not accurate in patients with acute kidney failure, extremes of body mass or the acutely ill. [email or web address] CITYnkf eGFR 147 >=60 mL/min/1.7 3 m?? [facility] Comment: The eGFR was calculated using the CKD-EPI equation. As with all creatinine based estimates of kidney function, eGFR values calculated with the CKD-EPI equation are not accurate in patients with acute kidney failure, extremes of body mass or the acutely ill. [email or web address] Blood specimen (specimen) 06/19/2018 8:32 AM EST 06/19/2018 8:43 AM EST Narrative Resulting Agency Comment Spec In Lab E Almaz Drake MD CHEMISTRY ORDERAB LES [facility] [place] [address] * (ABNORMAL) Differential, Automated (06/18/2018 8:20 PM EST) Neutrophil % 86.7 % [facility] Neutrophil Absolute 19.52(H) 1.70 - 6.10 x10(3)/mc L [facility] Lymph % 7.9 % [facility] Lymphocytes Abs 1.8 0.9 - 3.2 x10(3)/mc L [facility] Monocyte % 3.7 % [facility] Monocyte Abs 0.8 0.3 - 0.9 x10(3)/mc L [facility] Eos % 0.3 % [facility] Eosinophils Abs 0.1 0.0 - 0.4 x10(3)/mc L [facility] Basophil % 0.4 % [facility] Baso Absolute 0.1 0.0 - 0.1 x10(3)/ L [facility] Immature Gran % 1.00 % [facility] Comment: Immature granulocytes(IG's)percentage and absolute count will include metamyelocytes, myelocytes, and promyelocytes. Blood smears from CBCs yielding IG's will be scanned manually for concordance. If this scan disagrees with the automated IG or if promyelocytes are noted, a manual differential will be performed. Immature Gran Absolute 0.22(H) 0.00 - 0.04 x10(3)/ L [facility] Blood specimen (specimen) 06/18/2018 8:20 PM EST 06/18/2018 9:08 PM EST Narrative Resulting Agency Comment Spec In Lab Anuradha Hicks MD HEMATOLOGY ORDERABLE S Performing Organization Address City/State/[facility] Co de Phone Number [facility] [place] [address] * (ABNORMAL) Hemogram (06/18/2018 8:20 PM EST) White Blood Cell 22.5(H) 4.0 - 9.5 x10(3)/ L [facility] Red Blood Cell 3.67(L) 4.00 - 5.21 x10(6)/mc L [facility] Hemoglobin 11.1(L) 11.7 - 15.5 gm/dL [facility] Hematocrit 32.3(L) 35.7 - 45.8 % [facility] Mean Cell Volume 88.0 82.6 - 94.4 fL [facility] Mean Cell Hemoglobin 30.2 27.1 - 32.0 pg [facility] Mean Cell Hemoglobin Concentration 34.4 31.7 - 35.0 gm/dL [facility] Platelet 199 145 - 357 x10(3)/ L [facility] RDW Standard Deviation 41.3 37.0 - 46.0 fL [facility] RDW coefficient of variation 12.8 11.5 - 14.1 % [facility] Mean Platelet Volume 11.8 7.6 - 12.9 [facility] NRBC% auto 0.0 % [facility] NRBC Absolute 0.000 0.000 - 0.000 x10(3)/mc L [facility] Blood specimen (specimen) 06/18/2018 8:20 PM EST 06/18/2018 9:08 PM EST Narrative Resulting Agency Comment Spec In Lab Anuradha Hicks MD HEMATOLOGY ORDERABLE S Performing Organization Address City/[facility]/ZIP Co de Phone Number [facility] [place] [address] * (ABNORMAL) Creatinine (06/18/2018 8:20 PM EST) Creatinine 0.58(L) 0.70 - 1.20 mg/dL [facility] Est Glomerular Filtration Rate 129 >=60 mL/min/1.7 3 m?? [facility] Comment: The eGFR was calculated using the CKD-EPI equation. As with all creatinine based estimates of kidney function, eGFR values calculated with the CKD-EPI equation are not accurate in patients with acute kidney failure, extremes of body mass or the acutely ill. [email or web address] CITYnk eGFR 150 >=60 mL/min/1.7 3 m?? [facility] Comment: The eGFR was calculated using the CKD-EPI equation. As with all creatinine based estimates of kidney function, eGFR values calculated with the CKD-EPI equation are not accurate in patients with acute kidney failure, extremes of body mass or the acutely ill. [email or web address] CITYnk Blood specimen (specimen) 06/18/2018 8:20 PM EST 06/18/2018 9:08 PM EST Narrative Resulting Agency Comment Spec In Lab E Almaz Drake MD CHEMISTRY ORDERAB LES [facility] [place] [address] * Aspartate Aminotransferase (06/18/2018 8:20 PM EST) Aspartate Aminotransferase 18 0 - 30 unit/L [facility] Blood specimen (specimen) 06/18/2018 8:20 PM EST 06/18/2018 9:08 PM EST Narrative Resulting Agency Comment Spec In Lab E Almaz Drake MD CHEMISTRY ORDERAB LES Performing Organization Address [facility] [place] [address] * Specimen to Pathology (06/18/2018 2:52 PM EST) AP Specimen 06/18/2018 2:52 PM EST 06/19/2018 9:40 AM EST Narrative [facility] - 06/19/2018 9:40 AM EST Specimen requisition ordered. ??Separate Pathology report to follow Resulting Agency Comment Spec In Lab E Almaz Drake MD PATHOLOGY/CYTOLOG Y ORDERABLES Performing Organization Address [facility] Co de Phone Number [facility] [place] [address] * Specimen to Pathology (06/18/2018 12:54 PM EST) AP Specimen 06/18/2018 12:5 4 PM EST 06/19/2018 9:40 AM EST Narrative [facility] - 06/19/2018 9:40 AM EST Specimen requisition ordered. ??Separate Pathology report to follow Resulting Agency Comment Spec In Lab E Almaz Drake MD PATHOLOGY/CYTOLOG Y ORDERABLES Performing Organization Address [facility] [place] [address] * Surgical Pathology Report (06/18/2018 11:15 AM EST) Final Diagnosis [id number] ? Location: BP; BP01; A The signing [...] Kiet Young Verified: ??06/25/2018 ?Pathologist Performed at: ??-[facility] Dept. of Pathology, [place], [place] CLINICAL INFORMATION Specimen Submitted: A - [...] percent marginal. ? - Color and Clarity: [place] and translucent. Cord: ? - Size: 20.2 [...] approximately 1 percent of the parenchymal volume. [employer] sections in 7 cassettes as follows: ? A1: Membrane roll ? A2: Proximal and distal cord ? A3-A5: Full thickness parenchyma ? A6: [employer] accessory lobe ? A7: [employer] parenchymal lesion . SPECIMEN PROCESSING B - Labeled/Fixative: Left fallopian tube, formalin. Quantity/Size: Single, 2.5 x 1.1 x 0.7 cm. Tissue Description: Segments of fallopian tubes without fimbria Sections/Processi ng: [employer]er sections in 1 cassette labeled B1. C - Labeled/Fixative: Right fallopian tube, formalin. Quantity/Size: Single, 4.1 x 1.1 x 1.0 cm. Tissue Description: Segments of fallopian tubes with fimbria Sections/Processi ng: [employer]er sections in 1 cassette labeled C1. knr 06/25/2018 2:16 PM EST [facility] TISSUE SPECIMEN FROM PLACENTA / Unknown 06/18/2018 11:15 AM EST 06/18/2018 11:15 AM EST False Vocal Cords, Bilateral 06/18/2018 11:15 AM EST 06/18/2018 11:15 AM EST False Vocal Cords, Bilateral 06/18/2018 11:15 AM EST 06/18/2018 11:15 AM EST Scooter Canales MD PATHOLOGY/CYTOLOGY O RDERABLES Performing Organization Address [facility]/ZIP Co de Phone Number [facility] [address] * ABORH Recheck Status (06/18/2018 9:41 AM EST) ABORH Type Recheck Completed [facility] Blood specimen (specimen) 06/18/2018 9:41 AM EST 06/18/2018 10:04 AM EST Narrative Resulting Agency Comment Spec In Lab Scooter Canales MD BLOOD BANK LAB ORDER ALEA Performing Organization Address City/[facility] Co de Phone Number [facility] [address] * Antibody screen (06/18/2018 9:41 AM EST) [facility] Ab Screen Interp Negative [facility] Expires at [id number] on: 06/21/2018 [facility] Blood specimen (specimen) 06/18/2018 9:41 AM EST 06/18/2018 10:04 AM EST Narrative Resulting Agency Comment Spec In Lab Scooter Canales MD BLOOD BANK LAB ORDER ALEA Performing Organization Address City/[facility]/ZIP Co de Phone Number [facility] [address] * ABO/Rh Typing (06/18/2018 9:41 AM EST) [facility] ABORH Type A Pos [facility] Blood specimen (specimen) 06/18/2018 9:41 AM EST 06/18/2018 10:04 AM EST Narrative Resulting Agency Comment Spec In Lab Scooter Canales MD BLOOD BANK LAB ORDER ALEA Performing Organization Address City/[facility] Co de Phone Number [facility] [place] [address] * (ABNORMAL) Differential, Automated (06/18/2018 8:30 AM EST) [facility] Neutrophil % 76.6 % [facility] Neutrophil Absolute 9.72(H) 1.70 - 6.10 x10(3)/mc L [facility] Lymph % 16.7 % [facility] Lymphocytes Abs 2.1 0.9 - 3.2 x10(3)/mc L [facility] Monocyte % 4.7 % [facility] Monocyte Abs 0.6 0.3 - 0.9 x10(3)/mc L [facility] Eos % 0.9 % [facility] Eosinophils Abs 0.1 0.0 - 0.4 x10(3)/mc L [facility] Basophil % 0.6 % [facility] Baso Absolute 0.1 0.0 - 0.1 x10(3)/mc L [facility] Immature Gran % 0.50 % [facility] Comment: Immature granulocytes(IG's)percentage and absolute count will include metamyelocytes, myelocytes, and promyelocytes. Blood smears from CBCs yielding IG's will be scanned manually for concordance. If this scan disagrees with the automated IG or if promyelocytes are noted, a manual differential will be performed. Immature Gran Absolute 0.06(H) 0.00 - 0.04 x10(3)/ L [facility] Blood specimen (specimen) 06/18/2018 8:30 AM EST 06/18/2018 8:37 AM EST Narrative Resulting Agency Comment Spec In Lab Anuradha Hicks MD HEMATOLOGY ORDERABLE S Performing Organization Address City/State/[facility] Co de Phone Number [facility] [place] [address] * (ABNORMAL) Hemogram (06/18/2018 8:30 AM EST) White Blood Cell 12.7(H) 4.0 - 9.5 x10(3)/[facility] Red Blood Cell 4.26 4.00 - 5.21 x10(6)/ L [facility] Hemoglobin 13.1 11.7 - 15.5 gm/dL [facility] Hematocrit 36.9 35.7 - 45.8 % [facility] Mean Cell Volume 86.6 82.6 - 94.4 fL [facility] Mean Cell Hemoglobin 30.8 27.1 - 32.0 pg [facility] Mean Cell Hemoglobin Concentration 35.5(H) 31.7 - 35.0 gm/dL [facility] Platelet 212 145 - 357 x10(3)/mc L [facility] RDW Standard Deviation 40.4 37.0 - 46.0 fL [facility] RDW coefficient of variation 13.0 11.5 - 14.1 % [facility] Mean Platelet Volume 11.3 7.6 - 12.9 fL [facility] NRBC% auto 0.0 % [facility] NRBC Absolute 0.000 0.000 - 0.000 x10(3)/mc L [facility] Blood specimen (specimen) 06/18/2018 8:30 AM EST 06/18/2018 8:37 AM EST Narrative Resulting Agency Comment Spec In Lab Anuradha Hicks MD HEMATOLOGY ORDERABLE S Performing Organization Address City/[facility]/ZIP Co de Phone Number [facility] [place] [address] * (ABNORMAL) Creatinine (06/18/2018 8:30 AM EST) Creatinine 0.65(L) 0.70 - 1.20 mg/dL [facility] Est Glomerular Filtration Rate 124 >=60 mL/min/1.7 3 m?? [facility] Comment: The eGFR was calculated using the CKD-EPI equation. As with all creatinine based estimates of kidney function, eGFR values calculated with the CKD-EPI equation are not accurate in patients with acute kidney failure, extremes of body mass or the acutely ill. [email or web address] CITYnkf eGFR 144 >=60 mL/min/1.7 3 m?? [facility] Comment: The eGFR was calculated using the CKD-EPI equation. As with all creatinine based estimates of kidney function, eGFR values calculated with the CKD-EPI equation are not accurate in patients with acute kidney failure, extremes of body mass or the acutely ill. [email or web address] Blood specimen (specimen) 06/18/2018 8:30 AM EST 06/18/2018 8:37 AM EST Narrative Resulting Agency Comment Spec In Lab Severo Drake MD CHEMISTRY ORDERAB LES Performing Organization Address City/[facility]/ZIP Co de Phone Number [facility] [place] [address] * Aspartate Aminotransferase (06/18/2018 8:30 AM EST) Aspartate Aminotransferase 16 0 - 30 unit/L [facility] Blood specimen (specimen) 06/18/2018 8:30 AM EST 06/18/2018 8:37 AM EST Narrative Resulting Agency Comment Spec In Lab E Almaz Drake MD CHEMISTRY ORDERAB LES Performing Organization Address City/State/[facility] Co de Phone Number [facility] [place] [address] * (ABNORMAL) Differential, Automated (06/18/2018 2:30 AM EST) Neutrophil % 75.7 % [facility] Neutrophil Absolute 10.03(H) 1.70 - 6.10 x10(3)/mc L [facility] Lymph % 16.7 % [facility] Lymphocytes Abs 2.2 0.9 - 3.2 x10(3)/mc L [facility] Monocyte % 5.4 % [facility] Monocyte Abs 0.7 0.3 - 0.9 x10(3)/mc L [facility] Eos % 1.3 % [facility] Eosinophils Abs 0.2 0.0 - 0.4 x10(3)/mc L [facility] Basophil % 0.3 % [facility] Baso Absolute 0.0 0.0 - 0.1 x10(3)/mc L [facility] Immature Gran % 0.60 % [facility] Comment: Immature granulocytes(IG's)percentage and absolute count will include metamyelocytes, myelocytes, and promyelocytes. Blood smears from CBCs yielding IG's will be scanned manually for concordance. If this scan disagrees with the automated IG or if promyelocytes are noted, a manual differential will be performed. Immature Gran Absolute 0.08(H) 0.00 - 0.04 x10(3)/mc L [facility] Blood specimen (specimen) 06/18/2018 2:30 AM EST 06/18/2018 2:39 AM EST Narrative Resulting Agency Comment Spec In Lab Scooter Canales MD HEMATOLOGY ORDERABLE S Performing Organization Address City/[facility]/ZIP Co de Phone Number [facility] [place] [address] * (ABNORMAL) Hemogram (06/18/2018 2:30 AM EST) White Blood Cell 13.2(H) 4.0 - 9.5 x10(3)/mc L [facility] Red Blood Cell 4.13 4.00 - 5.21 x10(6)/mc L [facility] Hemoglobin 12.7 11.7 - 15.5 gm/dL [facility] Hematocrit 35.9 35.7 - 45.8 % [facility] Mean Cell Volume 86.9 82.6 - 94.4 fL [facility] Mean Cell Hemoglobin 30.8 27.1 - 32.0 pg [facility] Mean Cell Hemoglobin Concentration 35.4(H) 31.7 - 35.0 gm/dL [facility] Platelet 210 145 - 357 x10(3)/mc L [facility] RDW Standard Deviation 40.7 37.0 - 46.0 [facility] RDW coefficient of variation 12.9 11.5 - 14.1 % [facility] Mean Platelet Volume 11.4 7.6 - 12.9 [facility] NRBC% auto 0.0 % [facility] NRBC Absolute 0.000 0.000 - 0.000 x10(3)/mc L [facility] Blood specimen (specimen) 06/18/2018 2:30 AM EST 06/18/2018 2:39 AM EST Narrative Resulting Agency Comment Spec In Lab Scooter Canales MD HEMATOLOGY ORDERABLE S [facility] [address] * (ABNORMAL) Creatinine (06/18/2018 2:30 AM EST) Creatinine 0.60(L) 0.70 - 1.20 mg/dL [facility] Est Glomerular Filtration Rate 128 >=60 mL/min/1.7 3 m?? [facility] Comment: The eGFR was calculated using the CKD-EPI equation. As with all creatinine based estimates of kidney function, eGFR values calculated with the CKD-EPI equation are not accurate in patients with acute kidney failure, extremes of body mass or the acutely ill. [email or web address]://Penumbra/[facility] CITYnkf eGFR 148 >=60 mL/min/1.7 3 m?? [facility] Comment: The eGFR was calculated using the CKD-EPI equation. As with all creatinine based estimates of kidney function, eGFR values calculated with the CKD-EPI equation are not accurate in patients with acute kidney failure, extremes of body mass or the acutely ill. [email or web address] Blood specimen (specimen) 06/18/2018 2:30 AM EST 06/18/2018 2:39 AM EST Narrative Resulting Agency Comment Spec In Lab E Almaz Lauri MAGUIRE CHEMISTRY ORDERAB LES [facility] [place] [address] * Aspartate Aminotransferase (06/18/2018 2:30 AM EST) Aspartate Aminotransferase 16 0 - 30 unit/L [facility] Blood specimen (specimen) 06/18/2018 2:30 AM EST 06/18/2018 2:39 AM EST Narrative Resulting Agency Comment Spec In Lab E Almaz Lauri MAGUIRE CHEMISTRY ORDERAB LES [facility] [place] [address] * Aspartate Aminotransferase (06/17/2018 8:00 PM EST) Aspartate Aminotransferase 17 0 - 30 unit/L [facility] Blood specimen (specimen) 06/17/2018 8:00 PM EST 06/17/2018 8:08 PM EST Narrative Resulting Agency Comment Spec In Lab E Almaz Drake MD CHEMISTRY ORDERAB LES [facility] [place] [address] * (ABNORMAL) Differential, Automated (06/17/2018 6:55 PM EST) Neutrophil % 76.7 % [facility] Neutrophil Absolute 9.62(H) 1.70 - 6.10 x10(3)/mc L [facility] Lymph % 16.0 % [facility] Lymphocytes Abs 2.0 0.9 - 3.2 x10(3)/mc L [facility] Monocyte % 5.0 % [facility] Monocyte Abs 0.6 0.3 - 0.9 x10(3)/mc L [facility] Eos % 1.0 % [facility] Eosinophils Abs 0.1 0.0 - 0.4 x10(3)/mc L [facility] Basophil % 0.5 % [facility] Baso Absolute 0.1 0.0 - 0.1 x10(3)/mc L [facility] Immature Gran % 0.80 % [facility] Comment: Immature granulocytes(IG's)percentage and absolute count will include metamyelocytes, myelocytes, and promyelocytes. Blood smears from CBCs yielding IG's will be scanned manually for concordance. If this scan disagrees with the automated IG or if promyelocytes are noted, a manual differential will be performed. Immature Gran Absolute 0.10(H) 0.00 - 0.04 x10(3)/mc L [facility] Blood specimen (specimen) 06/17/2018 6:55 PM EST 06/17/2018 7:00 PM EST Narrative Resulting Agency Comment Spec In Lab Michelle Narvaez MD HEMATOLOGY ORDERABLE S [facility] [place] [address] * (ABNORMAL) Hemogram (06/17/2018 6:55 PM EST) White Blood Cell 12.5(H) 4.0 - 9.5 x10(3)/ L [facility] Red Blood Cell 4.18 4.00 - 5.21 x10(6)/mc L [facility] Hemoglobin 12.9 11.7 - 15.5 gm/dL [facility] Hematocrit 36.4 35.7 - 45.8 % [facility] Mean Cell Volume 87.1 82.6 - 94.4 [facility] Mean Cell Hemoglobin 30.9 27.1 - 32.0 pg [facility] Mean Cell Hemoglobin Concentration 35.4(H) 31.7 - 35.0 gm/dL [facility] Platelet 170 145 - 357 x10(3)/mc L [facility] RDW Standard Deviation 40.7 37.0 - 46.0 [facility] RDW coefficient of variation 12.9 11.5 - 14.1 % [facility] Mean Platelet Volume 11.7 7.6 - 12.9 [facility] NRBC% auto 0.0 % [facility] NRBC Absolute 0.000 0.000 - 0.000 x10(3)/mc L [facility] Blood specimen (specimen) 06/17/2018 6:55 PM EST 06/17/2018 7:00 PM EST Narrative Resulting Agency Comment Spec In Lab Michelle Narvaez MD HEMATOLOGY ORDERABLE S [facility] [place] [address] * (ABNORMAL) Creatinine (06/17/2018 6:55 PM EST) Creatinine 0.62(L) 0.70 - 1.20 mg/dL [facility] Est Glomerular Filtration Rate 126 >=60 mL/min/1.7 3 m?? [facility] Comment: The eGFR was calculated using the CKD-EPI equation. As with all creatinine based estimates of kidney function, eGFR values calculated with the CKD-EPI equation are not accurate in patients with acute kidney failure, extremes of body mass or the acutely ill. [email or web address] eGFR 146 >=60 mL/min/1.7 3 m?? [facility] Comment: The eGFR was calculated using the CKD-EPI equation. As with all creatinine based estimates of kidney function, eGFR values calculated with the CKD-EPI equation are not accurate in patients with acute kidney failure, extremes of body mass or the acutely ill. [email or web address] Blood specimen (specimen) 06/17/2018 6:55 PM EST 06/17/2018 7:00 PM EST Narrative Resulting Agency Comment Spec In Lab E Almaz Drake MD CHEMISTRY ORDERAB LES Performing Organization Address [facility]/ZIP Co de Phone Number [facility] [place] [address] * (ABNORMAL) Differential, Automated (06/17/2018 10:55 AM EST) Neutrophil % 79.9 % [facility] Neutrophil Absolute 9.49(H) 1.70 - 6.10 x10(3)/mc L [facility] Lymph % 14.3 % [facility] Lymphocytes Abs 1.7 0.9 - 3.2 x10(3)/mc L [facility] Monocyte % 4.1 % [facility] Monocyte Abs 0.5 0.3 - 0.9 x10(3)/[facility] Eos % 0.8 % [facility] Eosinophils Abs 0.1 0.0 - 0.4 x10(3)/[facility] Basophil % 0.4 % [facility] Baso Absolute 0.0 0.0 - 0.1 x10(3)/[facility] Immature Gran % 0.50 % [facility] Comment: Immature granulocytes(IG's)percentage and absolute count will include metamyelocytes, myelocytes, and promyelocytes. Blood smears from CBCs yielding IG's will be scanned manually for concordance. If this scan disagrees with the automated IG or if promyelocytes are noted, a manual differential will be performed. Immature Gran Absolute 0.06(H) 0.00 - 0.04 x10(3)/[facility] Blood specimen (specimen) 06/17/2018 10:55 AM EST 06/17/2018 11:03 AM EST Narrative Resulting Agency Comment Spec In Lab Lashay Resendiz MD HEMATOLOGY ORDERABLE S [facility] [place] [address] * (ABNORMAL) Hemogram (06/17/2018 10:55 AM EST) White Blood Cell 11.9(H) 4.0 - 9.5 x10(3)/[facility] Red Blood Cell 4.28 4.00 - 5.21 x10(6)/[facility] Hemoglobin 13.3 11.7 - 15.5 gm/dL [facility] Hematocrit 37.5 35.7 - 45.8 % [facility] Mean Cell Volume 87.6 82.6 - 94.4 fL [facility] Mean Cell Hemoglobin 31.1 27.1 - 32.0 pg [facility] Mean Cell Hemoglobin Concentration 35.5(H) 31.7 - 35.0 gm/dL [facility] Platelet 200 145 - 357 x10(3)/mc L [facility] RDW Standard Deviation 40.9 37.0 - 46.0 fL [facility] RDW coefficient of variation 12.7 11.5 - 14.1 % [facility] Mean Platelet Volume 11.2 7.6 - 12.9 fL [facility] NRBC% auto 0.0 % [facility] NRBC Absolute 0.000 0.000 - 0.000 x10(3)/mc L [facility] Blood specimen (specimen) 06/17/2018 10:55 AM EST 06/17/2018 11:03 AM EST Narrative Resulting Agency Comment Spec In Lab Lashay Resendiz MD HEMATOLOGY ORDERABLE S Performing Organization Address City/State/[facility] Co de Phone Number [facility] [place] [address] * (ABNORMAL) Creatinine (06/17/2018 10:55 AM EST) Creatinine 0.61(L) 0.70 - 1.20 mg/dL [facility] Est Glomerular Filtration Rate 127 >=60 mL/min/1.7 3 m?? [facility] Comment: The eGFR was calculated using the CKD-EPI equation. As with all creatinine based estimates of kidney function, eGFR values calculated with the CKD-EPI equation are not accurate in patients with acute kidney failure, extremes of body mass or the acutely ill. [email or web address] eGFR 147 >=60 mL/min/1.7 3 m?? [facility] Comment: The eGFR was calculated using the CKD-EPI equation. As with all creatinine based estimates of kidney function, eGFR values calculated with the CKD-EPI equation are not accurate in patients with acute kidney failure, extremes of body mass or the acutely ill. [email or web address] Blood specimen (specimen) 06/17/2018 10:55 AM EST 06/17/2018 11:03 AM EST Narrative Resulting Agency Comment Spec In Lab E Almaz Drake MD CHEMISTRY ORDERAB LES Performing Organization Address City/[facility]/ZIP Co de Phone Number [facility] [place] [address] * Aspartate Aminotransferase (06/17/2018 10:55 AM EST) Pathologist [facility] Aspartate Aminotransferase 19 0 - 30 unit/L [facility] Blood specimen (specimen) 06/17/2018 10:55 AM EST 06/17/2018 11:03 AM EST Narrative Resulting Agency Comment Spec In Lab E Almaz Drake MD CHEMISTRY ORDERAB LES Performing Organization Address [facility] Co de Phone Number [facility] [place] [address] * (ABNORMAL) Differential, Automated (06/17/2018 4:45 AM EST) Pathologist [facility] Neutrophil % 70.1 % [facility] Neutrophil Absolute 8.77(H) 1.70 - 6.10 x10(3)/mc L [facility] Lymph % 20.7 % [facility] Lymphocytes Abs 2.6 0.9 - 3.2 x10(3)/mc L [facility] Monocyte % 6.6 % [facility] Monocyte Abs 0.8 0.3 - 0.9 x10(3)/mc L [facility] Eos % 1.5 % [facility] Eosinophils Abs 0.2 0.0 - 0.4 x10(3)/mc L [facility] Basophil % 0.5 % [facility] Baso Absolute 0.1 0.0 - 0.1 x10(3)/mc L [facility] Immature Gran % 0.60 % [facility] Comment: Immature granulocytes(IG's)percentage and absolute count will include metamyelocytes, myelocytes, and promyelocytes. Blood smears from CBCs yielding IG's will be scanned manually for concordance. If this scan disagrees with the automated IG or if promyelocytes are noted, a manual differential will be performed. Immature Gran Absolute 0.07(H) 0.00 - 0.04 x10(3)/mc L [facility] Blood specimen (specimen) 06/17/2018 4:45 AM EST 06/17/2018 4:50 AM EST Narrative Resulting Agency Comment Spec In Lab Scooter Canales MD HEMATOLOGY ORDERABLE S [facility] [place] [address] * (ABNORMAL) Hemogram (06/17/2018 4:45 AM EST) White Blood Cell 12.5(H) 4.0 - 9.5 x10(3)/mc L [facility] Red Blood Cell 4.36 4.00 - 5.21 x10(6)/mc L [facility] Hemoglobin 13.4 11.7 - 15.5 gm/dL [facility] Hematocrit 38.1 35.7 - 45.8 % [facility] Mean Cell Volume 87.4 82.6 - 94.4 fL [facility] Mean Cell Hemoglobin 30.7 27.1 - 32.0 pg [facility] Mean Cell Hemoglobin Concentration 35.2(H) 31.7 - 35.0 gm/dL [facility] Platelet 191 145 - 357 x10(3)/mc L [facility] RDW Standard Deviation 41.0 37.0 - 46.0 fL [facility] RDW coefficient of variation 12.7 11.5 - 14.1 % [facility] Mean Platelet Volume 11.2 7.6 - 12.9 fL [facility] NRBC% auto 0.0 % [facility] NRBC Absolute 0.000 0.000 - 0.000 x10(3)/mc L [facility] Blood specimen (specimen) 06/17/2018 4:45 AM EST 06/17/2018 4:50 AM EST Narrative Resulting Agency Comment Spec In Lab Scooter Canales MD HEMATOLOGY ORDERABLE S Performing Organization Address [facility]/ZIP Co de Phone Number [facility] [place] [address] * (ABNORMAL) Creatinine (06/17/2018 4:45 AM EST) Creatinine 0.54(L) 0.70 - 1.20 mg/dL [facility] Est Glomerular Filtration Rate 132 >=60 mL/min/1.7 3 m?? [facility] Comment: The eGFR was calculated using the CKD-EPI equation. As with all creatinine based estimates of kidney function, eGFR values calculated with the CKD-EPI equation are not accurate in patients with acute kidney failure, extremes of body mass or the acutely ill. [email or web address]nk[facility] eGFR 153 >=60 mL/min/1.7 3 m?? [facility] Comment: The eGFR was calculated using the CKD-EPI equation. As with all creatinine based estimates of kidney function, eGFR values calculated with the CKD-EPI equation are not accurate in patients with acute kidney failure, extremes of body mass or the acutely ill. [email or web address]nk[facility] Blood specimen (specimen) 06/17/2018 4:45 AM EST 06/17/2018 4:50 AM EST Narrative Resulting Agency Comment Spec In Lab E Almaz Drake MD CHEMISTRY ORDERAB LES Performing Organization Address [facility]/ZIP Co de Phone Number [facility] [place] [address] * Aspartate Aminotransferase (06/17/2018 4:45 AM EST) Aspartate Aminotransferase 20 0 - 30 unit/L [facility] Blood specimen (specimen) 06/17/2018 4:45 AM EST 06/17/2018 4:50 AM EST Narrative Resulting Agency Comment Spec In Lab Severo Drake MD CHEMISTRY ORDERAB LES [facility] [place] [address] * (ABNORMAL) Differential, Automated (06/16/2018 4:30 AM EST) Neutrophil % 70.5 % [facility] Neutrophil Absolute 7.63(H) 1.70 - 6.10 x10(3)/mc L [facility] Lymph % 21.7 % [facility] Lymphocytes Abs 2.4 0.9 - 3.2 x10(3)/[facility] Monocyte % 5.6 % [facility] Monocyte Abs 0.6 0.3 - 0.9 x10(3)/[facility] Eos % 1.1 % [facility] Eosinophils Abs 0.1 0.0 - 0.4 x10(3)/[facility] Basophil % 0.5 % [facility] Baso Absolute 0.0 0.0 - 0.1 x10(3)/mc L [facility] Immature Gran % 0.60 % [facility] Comment: Immature granulocytes(IG's)percentage and absolute count will include metamyelocytes, myelocytes, and promyelocytes. Blood smears from CBCs yielding IG's will be scanned manually for concordance. If this scan disagrees with the automated IG or if promyelocytes are noted, a manual differential will be performed. Immature Gran Absolute 0.06(H) 0.00 - 0.04 x10(3)/mc L [facility] Blood specimen (specimen) 06/16/2018 4:30 AM EST 06/16/2018 4:42 AM EST Narrative Resulting Agency Comment Spec In Lab Scooter Canales MD HEMATOLOGY ORDERABLE S [facility] [address] * (ABNORMAL) Hemogram (06/16/2018 4:30 AM EST) White Blood Cell 10.8(H) 4.0 - 9.5 x10(3)/mc L [facility] Red Blood Cell 4.22 4.00 - 5.21 x10(6)/mc L [facility] Hemoglobin 12.8 11.7 - 15.5 gm/dL [facility] Hematocrit 36.6 35.7 - 45.8 % [facility] Mean Cell Volume 86.7 82.6 - 94.4 fL [facility] Mean Cell Hemoglobin 30.3 27.1 - 32.0 pg [facility] Mean Cell Hemoglobin Concentration 35.0 31.7 - 35.0 gm/dL [facility] Platelet 202 145 - 357 x10(3)/mc L [facility] RDW Standard Deviation 40.3 37.0 - 46.0 fL [facility] RDW coefficient of variation 12.8 11.5 - 14.1 % [facility] Mean Platelet Volume 11.3 7.6 - 12.9 fL [facility] NRBC% auto 0.0 % [facility] NRBC Absolute 0.000 0.000 - 0.000 x10(3)/ L [facility] Blood specimen (specimen) 06/16/2018 4:30 AM EST 06/16/2018 4:42 AM EST Narrative Resulting Agency Comment Spec In Lab Scooter Canales MD HEMATOLOGY ORDERABLE S [facility] [place] [address] * (ABNORMAL) Creatinine (06/16/2018 4:30 AM EST) Creatinine 0.51(L) 0.70 - 1.20 mg/dL [facility] Est Glomerular Filtration Rate 135 >=60 mL/min/1.7 3 m?? [facility] Comment: The eGFR was calculated using the CKD-EPI equation. As with all creatinine based estimates of kidney function, eGFR values calculated with the CKD-EPI equation are not accurate in patients with acute kidney failure, extremes of body mass or the acutely ill. [email or web address]/[facility] CITYnk[facility] eGFR 156 >=60 mL/min/1.7 3 m?? [facility] Comment: The eGFR was calculated using the CKD-EPI equation. As with all creatinine based estimates of kidney function, eGFR values calculated with the CKD-EPI equation are not accurate in patients with acute kidney failure, extremes of body mass or the acutely ill. [email or web address] CITYnk[facility] Blood specimen (specimen) 06/16/2018 4:30 AM EST 06/16/2018 4:42 AM EST Narrative Resulting Agency Comment Spec In Lab E Almaz Drake MD CHEMISTRY ORDERAB LES Performing Organization Address City/[facility]/ZIP Co de Phone Number [facility] [place] [address] * Aspartate Aminotransferase (06/16/2018 4:30 AM EST) Aspartate Aminotransferase 14 0 - 30 unit/L [facility] Blood specimen (specimen) 06/16/2018 4:30 AM EST 06/16/2018 4:42 AM EST Narrative Resulting Agency Comment Spec In Lab E Almaz Drake MD CHEMISTRY ORDERAB LES Performing Organization Address City/[facility]/ZIP Co de Phone Number [facility] [place] [address] * (ABNORMAL) Differential, Automated (06/15/2018 5:05 AM EST) Neutrophil % 71.6 % [facility] Neutrophil Absolute 7.76(H) 1.70 - 6.10 x10(3)/[facility] Lymph % 20.6 % [facility] Lymphocytes Abs 2.2 0.9 - 3.2 x10(3)/[facility] Monocyte % 5.6 % [facility] Monocyte Abs 0.6 0.3 - 0.9 x10(3)/[facility] Eos % 1.3 % [facility] Eosinophils Abs 0.1 0.0 - 0.4 x10(3)/[facility] Basophil % 0.3 % [facility] Baso Absolute 0.0 0.0 - 0.1 x10(3)/[facility] Immature Gran % 0.60 % [facility] Comment: Immature granulocytes(IG's)percentage and absolute count will include metamyelocytes, myelocytes, and promyelocytes. Blood smears from CBCs yielding IG's will be scanned manually for concordance. If this scan disagrees with the automated IG or if promyelocytes are noted, a manual differential will be performed. Immature Gran Absolute 0.07(H) 0.00 - 0.04 x10(3)/[facility] Blood specimen (specimen) 06/15/2018 5:05 AM EST 06/15/2018 5:17 AM EST Narrative Resulting Agency Comment Spec In Lab Scooter Canales MD HEMATOLOGY ORDERABLE S [facility] [place] [address] * (ABNORMAL) Hemogram (06/15/2018 5:05 AM EST) White Blood Cell 10.8(H) 4.0 - 9.5 x10(3)/[facility] Red Blood Cell 4.27 4.00 - 5.21 x10(6)/[facility] Hemoglobin 12.9 11.7 - 15.5 gm/dL [facility] Hematocrit 37.2 35.7 - 45.8 % [facility] Mean Cell Volume 87.1 82.6 - 94.4 fL [facility] Mean Cell Hemoglobin 30.2 27.1 - 32.0 pg [facility] Mean Cell Hemoglobin Concentration 34.7 31.7 - 35.0 gm/dL [facility] Platelet 200 145 - 357 x10(3)/mc L [facility] RDW Standard Deviation 40.5 37.0 - 46.0 fL [facility] RDW coefficient of variation 12.9 11.5 - 14.1 % [facility] Mean Platelet Volume 11.2 7.6 - 12.9 fL [facility] NRBC% auto 0.0 % [facility] NRBC Absolute 0.000 0.000 - 0.000 x10(3)/mc L [facility] Blood specimen (specimen) 06/15/2018 5:05 AM EST 06/15/2018 5:17 AM EST Narrative Resulting Agency Comment Spec In Lab Scooter Canales MD HEMATOLOGY ORDERABLE S [facility] [place] [address] * (ABNORMAL) Creatinine (06/15/2018 5:05 AM EST) Creatinine 0.55(L) 0.70 - 1.20 mg/dL [facility] Est Glomerular Filtration Rate 131 >=60 mL/min/1.7 3 m?? [facility] Comment: The eGFR was calculated using the CKD-EPI equation. As with all creatinine based estimates of kidney function, eGFR values calculated with the CKD-EPI equation are not accurate in patients with acute kidney failure, extremes of body mass or the acutely ill. [email or web address] eGFR 152 >=60 mL/min/1.7 3 m?? [facility] Comment: The eGFR was calculated using the CKD-EPI equation. As with all creatinine based estimates of kidney function, eGFR values calculated with the CKD-EPI equation are not accurate in patients with acute kidney failure, extremes of body mass or the acutely ill. [email or web address] Blood specimen (specimen) 06/15/2018 5:05 AM EST 06/15/2018 5:17 AM EST Narrative Resulting Agency Comment Spec In Lab E Almaz Drake MD CHEMISTRY ORDERAB LES Performing Organization Address [facility] Co de Phone Number [facility] [place] [address] * Aspartate Aminotransferase (06/15/2018 5:05 AM EST) Aspartate Aminotransferase 16 0 - 30 unit/L [facility] Blood specimen (specimen) 06/15/2018 5:05 AM EST 06/15/2018 5:17 AM EST Narrative Resulting Agency Comment Spec In Lab E Almaz Drake MD CHEMISTRY ORDERAB LES Performing Organization Address [facility] Co de Phone Number [facility] [place] [address] * US OB Detailed Morphology (06/14/2018 11:35 [...] 12:28 ?pm) PATIENT INFO: ID #: ? [id number] ?: ??[birth year] (22 yrs) Name: ? SHAWN LISA ?Visit Date: 06/14/2018 11:05 am PERFORMED BY: Performed By: ? Sri Montes RDMS Attending: ?Lauri MAGUIRE, E ??Almaz Referred By: ?TOBIAS RUIZ MD Location: ? [place] SERVICE(S) PROVIDED: ??[facility] - Detailed Morphology - [id number] ? [id number] ??[facility] - Umbilical Artery Doppler - [id number] ?[id number] INDICATIONS: ??25 weeks gestation of ?Z3A.25 ??Preeclampsia [...] Arch: ? Visualized SVC: ? Visualized Cardiac [place]: ?Visualized Diaphragm: ? Visualized 3 Vessel View: [...] 06/14/2018 12:28 pm) PATIENT INFO: ID #: [id number] : [birth year] (22 yrs) Name: SHAWN LISA Visit Date: 06/14/2018 11:05 am PERFORMED BY: Performed By: Sri Montes RDMS Attending: Severo Drake MD Referred By: TOBIAS RUIZ MD Location: [place] SERVICE(S) PROVIDED: [facility] - Detailed Morphology - [id number] [facility]A - Umbilical Artery Doppler - [id number] INDICATIONS: 25 weeks gestation of Z3A.25 Preeclampsia [...] Visualized Ductal Arch: Visualized SVC: Visualized Cardiac [place]: Visualized Diaphragm: Visualized 3 Vessel View: Visualized [...] 2:55 AM EST) Neutrophil % 73.0 % [facility] Neutrophil Absolute 8.59(H) 1.70 - 6.10 x10(3)/mc L [facility] Lymph % 17.9 % [facility] Lymphocytes Abs 2.1 0.9 - 3.2 x10(3)/mc L [facility] Monocyte % 6.6 % [facility] Monocyte Abs 0.8 0.3 - 0.9 x10(3)/mc L [facility] Eos % 1.4 % [facility] Eosinophils Abs 0.2 0.0 - 0.4 x10(3)/mc L [facility] Basophil % 0.5 % [facility] Baso Absolute 0.1 0.0 - 0.1 x10(3)/mc L [facility] Immature Gran % 0.60 % [facility] Comment: Immature granulocytes(IG's)percentage and absolute count will include metamyelocytes, myelocytes, and promyelocytes. Blood smears from CBCs yielding IG's will be scanned manually for concordance. If this scan disagrees with the automated IG or if promyelocytes are noted, a manual differential will be performed. Immature Gran Absolute 0.07(H) 0.00 - 0.04 x10(3)/[facility] Blood specimen (specimen) 06/14/2018 2:55 AM EST 06/14/2018 2:59 AM EST Narrative Resulting Agency Comment Spec In Lab Niraj Lewis MD HEMATOLOGY ORDERAB LES [facility] [place] [address] * (ABNORMAL) Hemogram (06/14/2018 2:55 AM EST) White Blood Cell 11.8(H) 4.0 - 9.5 x10(3)/[facility] Red Blood Cell 4.68 4.00 - 5.21 x10(6)/ L [facility] Hemoglobin 14.4 11.7 - 15.5 gm/dL [facility] Hematocrit 40.2 35.7 - 45.8 % [facility] Mean Cell Volume 85.9 82.6 - 94.4 fL [facility] Mean Cell Hemoglobin 30.8 27.1 - 32.0 pg [facility] Mean Cell Hemoglobin Concentration 35.8(H) 31.7 - 35.0 gm/dL [facility] Platelet 193 145 - 357 x10(3)/ L [facility] RDW Standard Deviation 39.9 37.0 - 46.0 fL [facility] RDW coefficient of variation 12.8 11.5 - 14.1 % [facility] Mean Platelet Volume 10.9 7.6 - 12.9 fL [facility] NRBC% auto 0.0 % [facility] NRBC Absolute 0.000 0.000 - 0.000 x10(3)/mc L [facility] Blood specimen (specimen) 06/14/2018 2:55 AM EST 06/14/2018 2:59 AM EST Narrative Resulting Agency Comment Spec In Lab Niraj Lewis MD HEMATOLOGY ORDERAB LES Performing Organization Address City/[facility]/ZIP Co de Phone Number [facility] [place] [address] * (ABNORMAL) Creatinine (06/14/2018 2:55 AM EST) Creatinine 0.50(L) 0.70 - 1.20 mg/dL [facility] Est Glomerular Filtration Rate 135 >=60 mL/min/1.7 3 m?? [facility] Comment: The eGFR was calculated using the CKD-EPI equation. As with all creatinine based estimates of kidney function, eGFR values calculated with the CKD-EPI equation are not accurate in patients with acute kidney failure, extremes of body mass or the acutely ill. [email or web address] CITYnk[facility] eGFR 157 >=60 mL/min/1.7 3 m?? [facility] Comment: The eGFR was calculated using the CKD-EPI equation. As with all creatinine based estimates of kidney function, eGFR values calculated with the CKD-EPI equation are not accurate in patients with acute kidney failure, extremes of body mass or the acutely ill. [email or web address] Blood specimen (specimen) 06/14/2018 2:55 AM EST 06/14/2018 2:59 AM EST Narrative Resulting Agency Comment Spec In Lab Severo Drake MD CHEMISTRY ORDERAB LES [facility] [place] [address] * Aspartate Aminotransferase (06/14/2018 2:55 AM EST) Aspartate Aminotransferase 14 0 - 30 unit/L [facility] Blood specimen (specimen) 06/14/2018 2:55 AM EST 06/14/2018 2:59 AM EST Narrative Resulting Agency Comment Spec In Lab E Almaz Drake MD CHEMISTRY ORDERAB LES [facility] [place] [address] * (ABNORMAL) Differential, Automated (06/13/2018 8:50 PM EST) Pathologist [facility] Neutrophil % 76.9 % [facility] Neutrophil Absolute 10.93(H) 1.70 - 6.10 x10(3)/mc L [facility] Lymph % 15.8 % [facility] Lymphocytes Abs 2.2 0.9 - 3.2 x10(3)/mc L [facility] Monocyte % 5.1 % [facility] Monocyte Abs 0.7 0.3 - 0.9 x10(3)/mc L [facility] Eos % 1.0 % [facility] Eosinophils Abs 0.1 0.0 - 0.4 x10(3)/mc L [facility] Basophil % 0.4 % [facility] Baso Absolute 0.1 0.0 - 0.1 x10(3)/mc L [facility] Immature Gran % 0.80 % [facility] Comment: Immature granulocytes(IG's)percentage and absolute count will include metamyelocytes, myelocytes, and promyelocytes. Blood smears from CBCs yielding IG's will be scanned manually for concordance. If this scan disagrees with the automated IG or if promyelocytes are noted, a manual differential will be performed. Immature Gran Absolute 0.11(H) 0.00 - 0.04 x10(3)/mc L [facility] Blood specimen (specimen) 06/13/2018 8:50 PM EST 06/13/2018 8:59 PM EST Narrative Resulting Agency Comment Spec In Lab Niraj Lewis MD HEMATOLOGY ORDERAB LES [facility] [place] [address] * (ABNORMAL) Hemogram (06/13/2018 8:50 PM EST) White Blood Cell 14.2(H) 4.0 - 9.5 x10(3)/mc L [facility] Red Blood Cell 4.44 4.00 - 5.21 x10(6)/mc L [facility] Hemoglobin 13.4 11.7 - 15.5 gm/dL [facility] Hematocrit 38.5 35.7 - 45.8 % [facility] Mean Cell Volume 86.7 82.6 - 94.4 fL [facility] Mean Cell Hemoglobin 30.2 27.1 - 32.0 pg [facility] Mean Cell Hemoglobin Concentration 34.8 31.7 - 35.0 gm/dL [facility] Platelet 209 145 - 357 x10(3)/mc L [facility] RDW Standard Deviation 40.2 37.0 - 46.0 [facility] RDW coefficient of variation 12.8 11.5 - 14.1 % [facility] Mean Platelet Volume 11.1 7.6 - 12.9 [facility] NRBC% auto 0.0 % [facility] NRBC Absolute 0.000 0.000 - 0.000 x10(3)/mc L [facility] Blood specimen (specimen) 06/13/2018 8:50 PM EST 06/13/2018 8:59 PM EST Narrative Resulting Agency Comment Spec In Lab Niraj Lewis MD HEMATOLOGY ORDERAB LES [facility] [place] [address] * (ABNORMAL) Creatinine (06/13/2018 8:50 PM EST) Creatinine 0.58(L) 0.70 - 1.20 mg/dL [facility] Est Glomerular Filtration Rate 129 >=60 mL/min/1.7 3 m?? [facility] Comment: The eGFR was calculated using the CKD-EPI equation. As with all creatinine based estimates of kidney function, eGFR values calculated with the CKD-EPI equation are not accurate in patients with acute kidney failure, extremes of body mass or the acutely ill. http://[employer]/[facility]nk[facility] eGFR 150 >=60 mL/min/1.7 3 m?? [facility] Comment: The eGFR was calculated using the CKD-EPI equation. As with all creatinine based estimates of kidney function, eGFR values calculated with the CKD-EPI equation are not accurate in patients with acute kidney failure, extremes of body mass or the acutely ill. [email or web address] Blood specimen (specimen) 06/13/2018 8:50 PM EST 06/13/2018 8:59 PM EST Narrative Resulting Agency Comment Spec In Lab E Almazkristen Drake MD CHEMISTRY ORDERAB LES Performing Organization Address City/[facility]/ZIP Co de Phone Number [facility] [place] [address] * Aspartate Aminotransferase (06/13/2018 8:50 PM EST) Aspartate Aminotransferase 11 0 - 30 unit/L [facility] Blood specimen (specimen) 06/13/2018 8:50 PM EST 06/13/2018 8:59 PM EST Narrative Resulting Agency Comment Spec In Lab E Almaz Lauri MAGUIRE CHEMISTRY ORDERAB LES Performing Organization Address City/[facility]/ZIP Co de Phone Number [facility] [place] [address] * Group B Streptococcus Screen (06/13/2018 2:50 PM EST) GBS Screen Neg [facility] Pooled specimen from vaginal introitus and rectal swab (specimen) 06/13/2018 2:50 PM EST 06/13/2018 3:23 PM EST Comment:Penicillin Allergy?- >No Narrative Resulting Agency Comment Spec In Lab Scooter Canales MD MICROBIOLOGY - GENER AL ORDERABLES Performing Organization Address City/[facility]/ZIP Co de Phone Number [facility] [place] [address] * Group B Strep Culture Screen (06/13/2018 2:50 PM EST) Group B Streptococcus Culture No Group B Streptococci isolated [facility] Pooled specimen from vaginal introitus and rectal swab (specimen) 06/13/2018 2:50 PM EST 06/13/2018 3:23 PM EST Comment:PENICILLIN ALLERGY?- >NO Narrative Resulting Agency Comment Spec In Lab E Almaz Drake MD MICROBIOLOGY - GE NERAL ORDERABLES Performing Organization Address [facility] Co de Phone Number [facility] [place] [address] * (ABNORMAL) Protein/Creatinine Ratio, urine (06/13/2018 2:49 PM EST) Creatinine, Urine 16 mg/dL [facility] Protein, Urine 154(H) 0 - 12 mg/dL [facility] Protein / Creatinine Ratio, Urine 9.6 ratio [facility] Urine specimen (specimen) 06/13/2018 2:49 PM EST 06/13/2018 3:22 PM EST Narrative Resulting Agency Comment Spec In Lab E Almaz Drake MD URINE ORDERABLES Performing Organization Address City/[facility] Co de Phone Number [facility] [place] [address] * (ABNORMAL) Creatinine (06/13/2018 2:47 PM EST) Creatinine 0.49(L) 0.70 - 1.20 mg/dL [facility] Est Glomerular Filtration Rate 136 >=60 mL/min/1.7 3 m?? [facility] Comment: The eGFR was calculated using the CKD-EPI equation. As with all creatinine based estimates of kidney function, eGFR values calculated with the CKD-EPI equation are not accurate in patients with acute kidney failure, extremes of body mass or the acutely ill. http://[employer]/[facility] CITYnk[facility] eGFR 158 >=60 mL/min/1.7 3 m?? [facility] Comment: The eGFR was calculated using the CKD-EPI equation. As with all creatinine based estimates of kidney function, eGFR values calculated with the CKD-EPI equation are not accurate in patients with acute kidney failure, extremes of body mass or the acutely ill. http://[employer]/[facility] CITYnk[facility] Blood specimen (specimen) No Charge / Unknown 06/13/2018 2:47 PM EST 06/13/2018 3:00 PM EST Narrative Resulting Agency Comment Spec In Lab Niraj Lewis MD CHEMISTRY ORDERABL ES Performing Organization Address [facility] Co de Phone Number [facility] [place] [address] * Aspartate Aminotransferase (06/13/2018 2:47 PM EST) Aspartate Aminotransferase 14 0 - 30 unit/L [facility] Blood specimen (specimen) No Charge / Unknown 06/13/2018 2:47 PM EST 06/13/2018 3:00 PM EST Narrative Resulting Agency Comment Spec In Lab Niraj Lewis MD CHEMISTRY ORDERABL ES Performing Organization Address [facility] Co de Phone Number [facility] [place] [address] * (ABNORMAL) Differential, Automated (06/13/2018 2:47 PM EST) Neutrophil % 76.0 % [facility] Neutrophil Absolute 8.43(H) 1.70 - 6.10 x10(3)/[facility] Lymph % 16.8 % [facility] Lymphocytes Abs 1.9 0.9 - 3.2 x10(3)/[facility] Monocyte % 5.0 % [facility] Monocyte Abs 0.6 0.3 - 0.9 x10(3)/[facility] Eos % 1.1 % [facility] Eosinophils Abs 0.1 0.0 - 0.4 x10(3)/[facility] Basophil % 0.5 % [facility] Baso Absolute 0.0 0.0 - 0.1 x10(3)/[facility] Immature Gran % 0.60 % [facility] Comment: Immature granulocytes(IG's)percentage and absolute count will include metamyelocytes, myelocytes, and promyelocytes. Blood smears from CBCs yielding IG's will be scanned manually for concordance. If this scan disagrees with the automated IG or if promyelocytes are noted, a manual differential will be performed. Immature Gran Absolute 0.07(H) 0.00 - 0.04 x10(3)/[facility] Blood specimen (specimen) No Charge / Unknown 06/13/2018 2:47 PM EST 06/13/2018 2:56 PM EST Narrative Resulting Agency Comment Spec In Lab Niraj Lewis MD HEMATOLOGY ORDERAB LES [facility] [place] [address] * (ABNORMAL) Hemogram (06/13/2018 2:47 PM EST) White Blood Cell 11.1(H) 4.0 - 9.5 x10(3)/[facility] Red Blood Cell 4.40 4.00 - 5.21 x10(6)/mc L [facility] Hemoglobin 13.5 11.7 - 15.5 gm/dL [facility] Hematocrit 38.1 35.7 - 45.8 % [facility] Mean Cell Volume 86.6 82.6 - 94.4 fL [facility] Mean Cell Hemoglobin 30.7 27.1 - 32.0 pg [facility] Mean Cell Hemoglobin Concentration 35.4(H) 31.7 - 35.0 gm/dL [facility] Platelet 228 145 - 357 x10(3)/mc L [facility] RDW Standard Deviation 40.5 37.0 - 46.0 fL [facility] RDW coefficient of variation 12.9 11.5 - 14.1 % [facility] Mean Platelet Volume 11.4 7.6 - 12.9 fL [facility] NRBC% auto 0.0 % [facility] NRBC Absolute 0.000 0.000 - 0.000 x10(3)/mc L [facility] Blood specimen (specimen) No Charge / Unknown 06/13/2018 2:47 PM EST 06/13/2018 2:56 PM EST Narrative Resulting Agency Comment Spec In Lab Niraj Lewis MD HEMATOLOGY ORDERAB LES [facility] [place] [address] * Lavender Tube HOLD (06/13/2018 2:47 PM EST) Lavender Hold Sample in lab. [facility] Blood specimen (specimen) No Charge / Unknown 06/13/2018 2:47 PM EST 06/13/2018 2:56 PM EST Niraj Lewis MD HEMATOLOGY ORDERAB LES [facility] [place] [address] * Green Tube HOLD (06/13/2018 2:47 PM EST) Green Hold Sample in lab. [facility] Blood specimen (specimen) No Charge / Unknown 06/13/2018 2:47 PM EST 06/13/2018 2:55 PM EST Niraj Lewis MD CHEMISTRY ORDERABL ES Performing Organization Address City/[facility]/ZIP Co de Phone Number [facility] [place] [address] * ABORH Recheck Status (06/13/2018 2:46 PM EST) Pathologist [facility] ABORH Type Recheck Completed [facility] Blood specimen (specimen) 06/13/2018 2:46 PM EST 06/13/2018 2:50 PM EST Narrative Resulting Agency Comment Spec In Lab Niraj Lewis MD BLOOD BANK LAB ORD ERABLES Performing Organization Address City/[facility]/ZIP Co de Phone Number [facility] [address] * Antibody screen (06/13/2018 2:46 PM EST) Ab Screen Interp Negative [facility] Expires at [id number] on: 06/16/2018 [facility] Blood specimen (specimen) 06/13/2018 2:46 PM EST 06/13/2018 2:50 PM EST Narrative Resulting Agency Comment Spec In Lab Niraj Lewis MD BLOOD BANK LAB ORD ERABLES Performing Organization Address City/[facility]/ZIP Co de Phone Number [facility] [place] [address] * ABO/Rh Typing (06/13/2018 2:46 PM EST) ABORH Type A Pos [facility] Blood specimen (specimen) 06/13/2018 2:46 PM EST 06/13/2018 2:50 PM EST Narrative Resulting Agency Comment Spec In Lab Niraj Lewis MD BLOOD BANK LAB ORD ERABLES [facility] [place] [address] documented in this encounter Visit Diagnoses Not on filedocumented in this encounter Admitting Diagnoses Diagnosis Preeclampsia, severe, second trimester documented in this encounter Administered Medications Inactive Administered Medications - up to 3 most recent administrations Medication Order MAR Action Action Date Dose Rate Site acetaminophen (TYLENOL) tablet 650 mg 650 mg, Oral, EVERY 6 HOURS PRN, Starting on Mon06/18/18 at 1251, Until Mon06/21/18 at 1230, Pain, - If ordered with [...] Mon06/18/18 at 1251, Until Mon06/21/18 at 1230 ibuprofen (ADVIL;MOTRIN) tablet 600 mg 600 mg, Oral, EVERY 6 HOURS, First dose on Mon06/19/18 at 1915, Until Discontinued, - Begin after ketorolac discontinued. , Routine Given 06/21/2018 9:3 8 AM EST 600 mg Given 06/21/2018 1:31 AM EST 600 mg Given 06/20/2018 8:13 PM EST 600 mg lactated Ringers infusion 25 mL/hr, Intravenous, CONTINUOUS, Starting on Mon06/13/18 at 1415, Until Mon06/21/18 at 1230 New Bag 06/18/2018 12:58 PM EST 25 mL/hr 25 mL/hr New Bag 06/18/2018 11:32 AM EST New Bag 06/18/2018 10:18 AM EST 25 mL/hr 25 mL/hr magnesium sulfate 20 g/500 mL infusion 2 g/hr (50 mL/hr), Intravenous, CONTINUOUS, Starting on Mon06/13/18 at 1415, Until Mon06/21/18 at 1230, Routine New 06/19/2018 5:20 AM EST 2 g/hr 50 mL/hr 06/18/2018 8:13 PM EST 2 g/hr 50 mL/hr New 06/18/2018 10:15 AM EST 2 g/hr 50 mL/hr ondansetron (ZOFRAN) injection 4 mg 4 mg, [...] additional 5 mg., Routine vitamin 27 & eapzvtk-pbrs-LO 60 mg iron-1 mg tablet Tab 1 [...] on Mon06/18/18 at 1315, Until Discontinued, Routine 09 (Given - Provider: Mary Ann Bonilla RN)1953 (Given - Provider: Georgia Fish RN)2100 (Not [...] 1953 (Given - Provider: Georgia Fish RN) 011 (Given - Provider: Georgia Fish RN)0742 (Given - Provider: Georgia Fish RN)1329 (Given - Provider: Haily Peraza RN)2012 (Given - Provider: Ramya Ambrose RN) 013 (Given - Provider: Ramya Ambrose RN)0938 (Given [...] Mary Ann Bonilla RN) vitamin 27 & gluwxfq-zilh-DD 60 mg iron-1 mg tablet Tab 1 [...] Routine 0520 (New Bag - Provider: Macey Ragsdale, RN)1118 (Stopped - Provider: Mary Ann Bonilla, RN) PRN Medication Order 06/19/2018 06/20/2018 06/21/2018 acetaminophen (TYLENOL) tablet 650 mg 650 mg, Oral, EVERY 6 HOURS PRN, Starting on 06/18/18 at 1251, Until Holly 06/21/18 at 1230, Pain, - If ordered with other PRN pain medications give Ibuprofen first, then acetaminophen, then additional agents according to the pain scale. - Not to exceed 4g in 24 hours, Routine 0515 (Given - Provider: Macey Ragsdale, RN)1117 (Given - Provider: Mary Ann Bonilla, RN)1804 (Given - Provider: Mary Ann Bonilla RN) 0116 (Given - Provider: Georgia Fish RN)0742 (Given - Provider: Georgia Fish RN)1329 (Given - Provider: Haily Peraza, ULYSSES)2013 (Given - Provider: Ramya Ambrose, ULYSSES) 013 (Given - Provider: Rmaya Ambrose RN) calcium carbonate (TUMS) chewable tablet 1,000 mg [...] Mon06/18/18 at 1251, Until Mon06/21/18 at 1230 lidocaine (XYLOCAINE) 10 mg/mL (1 %) injection 3 mg 3 mg (0.3 mL), Subcutaneous, ONCE PRN, 1 dose, Starting on Mon06/13/18 at 1352, Until Mon06/21/18 at 1230, for discomfort with PIV insertion, [...] Routine documented in this encounter Care Teams Entomology Teacher Relationship Specialty Start Date End Date Shaneka Mae APRN PCP - General Family Medicine 06/13/18 01/09/19 documented as of this encounter
--- OUTSIDE RECORDS SUMMARY | 2024-06-26 16:45 | XMS_ITS | Encounter Summary ---
[place] [address] Care Team Providers Care Job Developer Name Role Phone Domonique Sweeney APRN Primary Care Provider [phone]- [phone] Encounter Details Date Type Department Care Team (Late st Contact Info) Description 07/08/2013 8:45 AM EST - 07/08/2013 11:59 PM [facility] Hospital [place] [id number] Social History Tobacco Use Types Packs/Day Years Used Date Smoking Tobacco: Never Smokeless Tobacco: Never Alcohol Use Standard Drinks/Week Comments No 0 (1 standard drink = 0.6 oz pur e alcohol) Comments Yes Sex and Gender Information Value Date Recorded Sex Assigned at Not on file Gender Identity Not on file Sexual Orientation Not on file documented as of this encounter Medications at Time of Discharge Medication Sig Dispensed Refills Start Date End Date butalbital-acetaminophe n-caffeine (FIORICET, ESGIC) per tablet Take 2 tablets by mouth every 4 hours as needed for Pain. 10 tablet 0 06/14/2013 aspirin 81 mg chewable tabletIndications:Hx of preeclampsia, prior , currently Take 81 mg by mouth daily. 30 tablet 3 12/24/2012 09/02/2013 VITS W-CA,FE,FA,<1MG, ( VITAMIN ORAL) 08/03/201008/11 documented as of this encounter Plan of Treatment Not on file documented as of this encounter Procedures Procedure Name Priority Date/Time Associated Diagnosis Comments US OB FOLLOW UP Routine 07/08/2013 9:24 AM EST documented in this encounter Results * US OB follow up evaluation (07/08/2013 9:24 AM EST) Anatomical Region Laterality Modality Pelvis, Abdomen Ultrasound 07/08/2013 9:24 AM EST Narrative 07/08/2013 9:30 AM EST ?OBSTETRICS REPORT ? (Signed Final 07/08/2013 09:28 am) Patient Info ID: ? [id number] ? : [birth year] (17 yrs) Name: ? SAHWN PEÑALOZA ? Visit Date: 07/08/2013 09:22 am ? [facility] Performed By Performed By: ?Zaida Isaacs RDMS Attending: ? Kanika MAGUIRE, Simon Martinez Referred By: ? SIMON GLASS MD OB History BMI: ?27.29 Service(s) Provided UOBFOL - Efw - Growth - Reevaluation - [place] ?[id number] - [phone] Indications growth mfm to read Evaluation Num [...] call if you have any questions. ? Simon Glass MD Electronically Signed Final Report ?? 07/08/2013 09:28 am Procedure Note Simon Glass MD - 07/08/2013 OBSTETRICS REPORT (Signed Final 07/08/2013 09:28 am) Patient Info ID: [id number] : [id number] (17 yrs) Name: SHAWN PEÑALOZA Visit Date: 07/08/2013 09:22 am [facility] Performed By Performed By: Zaida Isaacs RDMS Attending: Simon Glass MD Referred By: SIMON GLASS MD OB History BMI: 27.29 Service(s) Provided UOBFOL - Efw - Growth - Reevaluation - [place] [id number] - [phone] Indications growth mfm to read Evaluation Num [...] us to participate in the care of SHWAN ROSALES. Please do not hesitate to call if you have any questions. Simon Glass MD Electronically Signed Final Report 07/08/2013 09:28 am E Almaz Carreon MD IMG OB ORDERAB LES documented in this encounter Visit Diagnoses Diagnosis state, incidental documented in this encounter Care Teams Job Developer Relationship Specialty Start Date End Date Domonique Sweeney APRN [facility] [address] [place] [address] PCP - General 11/30/12 06/12/18 documented as of this encounter
--- OUTSIDE RECORDS SUMMARY | 2024-06-26 16:45 | XMS_ITS | Encounter Summary ---
[place] [address] Care Team Providers Care Nurseryman Assistant Name Role Phone Zahra Domonique Kim APRN Primary Care Provider [phone] Reason for Visit * Reason Comments Rupture of Membranes Patient thinks her membranes have ruptured at 0400, she states clear fluid; has hx of gestational hypertension; has had headaches the past couple of day, seeing spots; has +2 edema BLE;; face puffy; mid upper quadrant pain and in the middle of her back; lungs clear bilaterally could not elicit reflexes Encounter Details Date Type Department Care Team (Latest Contact Info) Description 07/10/2013 5:43 PM EST - 07/11/2013 6:[address] [facility] Hospital [place] [id number] Best Powers MD Hx of preeclampsia, prior , currently (Primary Dx) Discharge Disposition: Home Social History [...] Sign Reading Time Taken Comments Blood Pressure 138/69 07/11/2013 4:30 PM EST Pulse 92 07/11/2013 4:30 PM EST Temperature 36.9 ??C (98.4 ??F) 07/11/2013 4:30 PM ES T Respiratory Rate 20 07/11/2013 4:30 PM EST Oxygen Saturation 98% 07/11/2013 4:30 PM EST Inhaled Oxygen Concentration - - Weight 84.5 kg (186 lb 4.6 oz) 07/10/2013 6:00 P M EST Height 162.6 cm (5' 4) 07/10/2013 6:00 PM EST Body Mass Index 31.98 07/10/2013 6:00 PM EST documented in this encounter Discharge Instructions * Discharge Instructions* Leigha Coe, ULYSSES - 07/11/2013 6:25 PM EST [place] [id number] [facility] to contact OB doctor [phone] to contact family doctor to contact c d area supervisor Shawn Spears [email or web address] 6:25 PM Following your visit to [facility] Triage Reason for Visit: Chief Complaint Patient presents with ??? Rupture of Membranes Patient thinks her membranes have ruptured at 0400, she states clear fluid; has hx of gestational hypertension; has had headaches the past couple of day, seeing spots; has +2 edema BLE;; face puffy; mid upper quadrant pain and in the middle of her back; lungs clear bilaterally could not elicit reflexes Term Gestation - 37 through 42 weeks gestation Notify your provider if: You are having painful contractions/abdominal cramps less than 5 minutes apart for 1 hour walking, resting, or any kind of activity does not make them less painful or go away You have ruptured your membranes Small leakage of fluid or large gush Note appearance of fluid amount color (may be clear, yellowish, green, pea soup-like, blood-tinged, or bloody) time You have noticed a marked decrease in your baby's movement refer to your kick count instructions in the Your Journey book Your baby should move at least 10 times in 2 hours You have had any direct trauma to your abdomen such as a car accident, fall, or impact Gestation - under 37 weeks Notify your provider if: You are feeling any cramping sensations in your abdomen more than 20 minutes apart Raymond-King Contractions usually are irregular may get less painful or go away with walking, resting, or any other activities usually felt in the front and do not radiate to the back labor contractions may start irregular in frequency, then become regular and more frequent usually start in the front and radiate to the back. Some women experience pelvic pressure or back pain that may come and go. Resting, walking, and other activities will not take them away or may even make them worse If you are one month before your due date: any abdominal, back or pelvic pressure or pain that comes and goes as much or more than 4 times in an hour. You feeling a leakage of fluid may be a small leak of fluid may be a large gush note the time it started leaking, amount, and color of fluid (clear, yellow, green, pink, red) You notice vaginal bleeding spotting is normal following a vaginal exam in your doctor's or c d area supervisor's office you should not bleed as much as a period You have noticed a marked decrease in your baby's movement refer to your kick count instructions in the Your Journey book Your baby should move at least 10 times in 2 hours You have had any direct trauma to your abdomen such as a car accident, fall, or impact Call your doctor or c d area supervisor if you have the following symptoms: Headache Visual disturbance/spots in front of your eyes/blurry vision Pain under your ribs toward the right side of your abdomen Sudden swelling to your legs or any increase in swelling to your arms and face Pain or bleeding on urination A temperature at or above 100.4F Nausea or vomiting Flu-like symptoms: cough, fever, muscle aches General Instructions Drink plenty of non-caffeinated fluids throughout the day to prevent dehydratio Keep your regularly scheduled doctor or c d area supervisor appointment Your medications: No current facility-administered medications on file prior to encounter. Current Outpatient Prescriptions on File Prior to Encounter Medication Sig Dispense Refill ??? aspirin 81 mg chewable tablet Take 81 mg by mouth daily. 30 tablet 3 ??? poetvyarep-trgjgixhqfndh-psyorypq (FIORICET, ESGIC) per tablet Take 2 tablets by mouth every 4 hours as needed for Pain. 10 tablet 0 ? ? VITS W-CA,FE,FA,<1MG, ( VITAMIN ORAL) Special instructions/Follow-up Care: Space for patient-specific care or instructions If you have any other questions or concerns please call your provider at their office number * Patient Instructions* Macey Bui MD - 07/11/2013 1:51 PM EST Please continue to take your blood pressure twice daily. Please call if you have blood pressures >160/105 or headache, vision changes, Your Diet is: Routine diet Please call your OB provider for the following: ?? Fever more than 100.5 degrees ?? Any vaginal bleeding ?? Any abdominal pain, nausea, shaking chills ?? Leaking fluid ?? Contractions of more than 4 in 1 hour. ?? Decreased movement - less than ten movements in 2 hours when you are lying down and specifically waiting for your baby to move Contact Numbers: You can reach OB providers at [facility] by [phone] during the day and [phone] after 5 pm for problems. documented in this encounter Medications at Time [...] as of this encounter Progress Notes * Leigha Coe RN - 07/11/2013 6:36 PM EST Patient discharged to home in stable condition; CBC,AST, cretinine labs and 24 hour urine results reviewed by Kana Rocha MD; orders received to dc to home; IV discontinued and discharge instructions reviewed; patient verbalizes understanding of same; to home upon arrival of her ride * Don Glass MD - 07/11/2013 9:57 AM EST Attending Progress Note DON GLASS MD I reviewed the patient at rounds with the team. My evaluation is as below: Subjective: C/o continued QUESADA and RUQ pain, minimal response to medication. States her face if puffy. States her LE edema has improved. She is concerned this is recurrent preeclampsia. Objective: Temp: [36.7 ??C (98.1 ??F)-37 ??C (98.6 ??F)] Heart Rate: [75-121] Resp: [18-20] BP: (111-147)/(53-90) SpO2: [96 %-99 %] General: Sitting in bed, no distress, very comfortable, talking amiably Face: Mild puffiness, no evidence of edema Abdomen: Soft, non-tender, not distended Uterus: Soft, Non-tender Extremities: no edema at all. Urine protein: Negative on dip NST: pending for today, please see separate documentation. Ultrasound 07/08: normal fluid and growth Labs: Platelet count slightly decreased to 175 this am, normal AST and Cr. 24 hour urine pending Impression & Plan: The patient had elevated BP > 140 at 18 weeks. We discussed that her current BP are in range of her BP throughout the . She currently does not have urine protein ondip. I explained that preeclampsia starts early in , but that we only deliver when we see clear evidence. It is concerning that she has some RUQ pain and a QUESADA, but it is not consistent at this time with preeclampsia and she is only 36 2/7 weeks. We will repeat labs at 4:30 pm, to check herCBC and await her 24 hour urine results. In addition, her QUESADA has many signs consistent with a migraine such as photophobia. We will try a single dose of Imitrex. If the patients symptoms resolve and her 24 hour urine is negative, we will have her return on Monday and next week for close follow up. Delivery Indications: progressive labor, non reassuring status, maternal deterioration and HELLP Syndrome DON GLASS MD 07/11/2013 * Don Glass MD - 07/11/2013 6:44 AM EST Obstetrical Antepartum Progress Note Shawn Speras is a 17 y.o. female with an TYE of 08/06/2013, by Ultrasound who is at 36w2d gestation, admitted with headache and gestational HTN - for evaluation of pre-eclampsia. This isHD#2 Active Problems: Active Hospital Problems Diagnosis ??? Gestational hypertension ??? Rubella non-immune status, [...] Wants ERCS in setting of breech presentation Resolved Hospital Problems Diagnosis Date Resolved No resolved problems to display. 24 Hour Events Collecting 24 hour urine Received Fioricet, compazine and oxycodone for QUESADA Subjective: Pt reports that she continues to have QUESADA which has only been intermittent relieved withthe medications she's received. She also describes worsening facial swelling overnight, that I cansee my cheeks when I look around because they're so puffy. She describes light sensitivity and RUQ. She reports good FM. No LOF or vaginal bleeding. Review of Systems See above Physical Exam Patient Vitals for the past 24 hrs: BP Temp Temp src Pulse Resp SpO2 Height Weight 07/11/13 0627 134/77 mmHg 36.9 ??C (98.4 ??F) Oral 82 20 97 % - - 07/11/13 0326 127/71 mmHg 36.9 ??C (98.4 ??F) Oral 85 18 96 % - - 07/10/13 2336 124/57 mmHg 36.8 ??C (98.2 ??F) Oral 86 18 96 % - - 07/10/132034 131/72 mmHg - - - - - - - 07/10/132004 - - - 110 - - - - 07/10/131999 137/82 mmHg 37 ??C (98.6 ??F) Oral 121 20 97 % - - 07/10/13 1800 147/79 mmHg - - 110 18 97 % 162.6 cm (5' 4) 84.5 kg (186 lb 4.6 oz) 07/10/13 1620 142/90 mmHg - - 96 - - - - 07/10/13 1525 138/81 mmHg - - 84 20 99 % - - 07/10/13 1452 138/73 mmHg - - - - - - - 07/10/13 1253 139/79 mmHg 36.7 ??C (98.1 ??F) Oral 94 20 99 % - - Back and upper abdomen: With deep palpation in the epigastrium, left upper quadrant and right CVA patient has no pain. She complains of pain in the RUQ Uterus: non-tender Cervix Exam: Dilation: 1 (07/10/13 1538) Effacement: 0 Station: -3 Position: Posterior Consistency: Medium Vergara Score: 2 OB Examiner: Rolando Heart Rate Interpretation: Reactive on admission, pending today Most Recent Ultrasound Date: 07/08/2013 GA at US: 35 and 6/7 wks Presentation: Breech Placenta: Anterior GABINO Sum: 12.6 cm Larg Pckt: 3.7 cm Est. FW: 2900 gm 6 lb 6 oz 75 % GBS: pending Recent Labs Basename 07/11/13 0600 07/10/13 1338 WBC 6.4 8.2 HGB 10.4* 11.4 HCT 30.9* 34.1 PLATELET 175 216 Ref. Range 07/10/2013 13:38 07/10/2013 18:25 07/11/2013 06:00 Creatinine Latest Range: 0.70-1.20 mg/dL 0.71 0.62 (L) Estimated GFR Latest Range: >=60 >60 >60 AST Latest Range: 5-30 unit/L 14 13 Assessment & Plan: 17 y.o. female with an 08/06/2013, by Ultrasound who is at 36w2d weeks gestational age, who was admitted for observation with gestational HTN and QUESADA - for evaluation of pre-eclampsia. ?? Obstetric Issues ?? Presentation: Breech ?? Status: reassuring ?? surveillance: NST once daily ?? GBS: pending ?? Steroid status: none ?? Delivery Indications: non reassuring status and pre-eclampsia with severe features/HELLP ?? Delivery Plan: delivery for malpresentation at 38 weeks (for gHTN) Additional issues: ?? Gestational HTN: Patient has some concerning complaints for pre-eclampsia, however her labs, blood pressures and urine dip continue to be reassuring that she has not developed pre-eclampsia. She will continue to collect her 24 hour urine. LFTs are normal and stable. Platelets have dropped slightly - will continue to monitor. ?? Headaches: They have a migrainous nature to them. I have offered her imitrex to see if the headache improves which she declines at this point. Signed: FLOYD TOSCANO MD, PGY4 07/11/2013 I saw the patient with Dr. Toscano. I agree with her assessment and plan as written above, please refer to my separate note for the details of my visit. * Donna Toribio RN - 07/10/2013 4:53 PM EST 1620- US done. Urine dip done- SG- 1.010,PH- 7, Nitrates-neg, Leukocytes- negative, Protein- sl trace, Ketones- +2. Patient encouraged to eat and drink. Patient stated being nauseous and only ate breakfast but been drinking. Patient started 24 hr urine collection, instructed. BP- 142/90. * Leigha Coe RN - 07/10/2013 2:43 PM EST Patient reports that she has a headache now; and states she is worried about her condition and doesnot want it to get worse; told patient that as soon as the MD can, she will see you Fidel Bui MD here to evaluate patient Speculum exam done: amni test negative SVE /3 by Severo Bui MD documented in this encounter H&P Notes * Best Powers MD - 07/10/2013 6:01 PM EST Obstetrical Admission Note Referring Hospital: N/A Referring Provider: N/A Initial Care Provider: [facility] Chief Complaint: Shawn Spears was admitted today secondary to gestational hypertension with concern for preeclampsia. Shawn Spears is a 17 y.o. female who is at 36w1d weeks gestation by 8 week ultrasoundwhose has been complicated by gestational hypertension. She had an elevated blood pressure of 140/95 at her 31 week visit and then again at her 34w6d visit. She reports that she has had headaches on and off that are normally relieved with tylenol, but have been getting worse. She also reports that she has occasional black spots that she sees in her eyes that have been more frequent today. She hasn't had anything to eat since breakfast, but reports that she has drank a liter of water today. Also reports mild intermittent epigastric pain and nausea. Additionally she reports that she had a gush of fluid this morning that soaked her underwear while she was starting a nebulizer for oscar. Reports that she had to change her pants and then wore a pad for the rest of the day. She is very concerned about developing preeclampsia since she had severe preeclampsia with her prior with IUGR and blood pressures in the 180/20s (per patient report) with a delivery at 28 weeks. She is concerned that she has trace protein in her urine and her legs have become much more swollen over the past two days. She had a baseline 24 hr urine performed June 07 with 110mg of protein. HELLP labs were also normal at that time. NSTs were initiated at 31wks primarily due to patient anxiety, and also rising BP per Dr. Carreon and stopped at 34 weeks. is otherwise complicated by: -HX severe preeclampsia: Severe preeclampsia at 28 weeks, IUGR, LTCS for NRFHT -Rubella non immune status Review of Systems Reports headache, dizziness, seeing black spots, intermitted epigastric pain, lower extremity edema, and nasuea. No fevers/chills, chest pain, palpitations, cough, wheeze, shortness of breath, vomiting, diarrhea/constipation, dysuria, urinary frequency, vaginal bleeding Obstetric Review of Systems Total Weight Gain this Not found. Movement: present, but less active then previously Contractions: none Leaking: Reports gush at 5AM Bleeding; none now Preeclampsia signs and symptoms: headache, visual disturbances and epigastric pain Active Hospital Problems Diagnosis ??? Gestational hypertension ??? Rubella non-immune status, antepartum ??? Unspecified high-risk ??? Hx of preeclampsia, prior , currently ??? Previous delivery affecting Resolved Hospital Problems Diagnosis Date Resolved No resolved problems to display. There are no active non-hospital problems to display for this patient. Past Medical History Diagnosis Date ??? Hypertension only with preeclampsia Past Surgical History Procedure Date ??? section 2010 ??? Appendectomy 2008 OB History Previous delivery 07/2010 at 28 weeks, induction for severe preeclampsia with IUGR. Patient was found to have NRFHT on monitoring and the decision was made to proceed with primary LTCS. 794 g infant. Prescriptions prior to admission Medication Sig Dispense Refill ??? aspirin 81 mg chewable tablet Take 81 mg by mouth daily. 30 tablet 3 ??? yeieswamrm-pxnbuwqzxpihl-vpzsdywi (FIORICET, ESGIC) per tablet Take 2 tablets by mouth every 4 hours as needed for Pain. 10 tablet 0 ? ? VITS W-CA,FE,FA,<1MG, ( VITAMIN ORAL) Allergies No Known Allergies Social History Non smoker. No EtOH or illicit drug use in this . Immunization History Administered Date(s) Administered ??? Influenza Whole 02/10/2010 ??? Tdap 08/02/2010, 06/24/2013 Filed Vitals: 07/10/13 1800 BP: 147/79 Pulse: 110 Temp: Resp: 18 Weight - Scale: 84.5 kg (186 lb 4.6 oz) Physical Exam Gen: Resting comfortably in bed. Appears anxious. Neuro: Alert and oriented. Reflexes were 2+ throughout. Cardiac: RRR. No murmurs, rubs, or gallops. Pulm: CTAB. No wheezes, rales, or rhonci. Abd: +BS. Soft. Non tender. No rebound or guarding. Fundus: Size consistent with dates Extremities: 2+ pitting edema in bilateral lower extremities Clinical EFW: 7 # Sterile Speculum: no pooling of fluid seen, Nitrizine test is negative, Ferning test is negative Cervical Exam: Dilation: 1 (07/10/13 1538) Effacement: 0 Station: -3 Position: Posterior Consistency: Medium Vergara Score: 2 OB Examiner: Rolando Presentations: Breech per bedside ultrasound GABINO 11.69 cm Heart Rate Interpretation: FHR Fetus A: Baseline 135, moderate variability, accelerations present, no decelerations Tocometry: No contractions Record Review Labs Lab Results Component Value Date ABORH A Pos 12/17/2012 HCT 34.1 07/10/2013 HGB 11.4 07/10/2013 MCV 87.0 07/10/2013 HEPBSAG Negative 12/17/2012 RUBLIGG Negative* 12/17/2012 HIV12 Negative 12/17/2012 GCAMP Negative 12/25/2012 CHLMGENE Negative 12/25/2012 [id number] 0.11 06/07/2013 AST 14 07/10/2013 Lab Results Component Value Date WBC 8.2 07/10/2013 Hemoglobin 11.4 07/10/2013 Hematocrit 34.1 07/10/2013 Platelets 216 07/10/2013 Lab Results Component Value Date Creatinine 0.71 07/10/2013 AST 14 07/10/2013 Most Recent Ultrasound Date: 07/08/2013 GA at US: 35w6d EFW: 2900 g Growth appropriate for gestational age Amniotic fluid volumenormal Placenta anterior Presentation breech Assessment & Plan 17 y.o. female who is at 36w1d weeks gestation with a history of preeclampsia in a previouspregnancy whose current has been complicated by gestational hypertension being admitted for observation for preeclampsia. Patients symptoms of headache, epigastric pain, visual changes, andincreased swelling in her lower extremities are consistent with preeclampsia, but patient has had these symptoms on and off throughout . They may also be secondary to dehydration and decreased intake today. Urine dip was trace protein today and blood pressures have been 138-147/79-90 in the hospital today. HELLP labs were within normal limits today. Patient doesn't currently meet the defi nition of preeclampsia, but is at high risk of developing preeclampsia. Will continue to monitor blood pressures, start 24 hr urine collection, and repeat HELLP labs in the AM. ?? Labor State: Not in labor. ?? Delivery indications: non-reassuring status and maternal deterioration ?? Heart Rate Assessment: Category 1 ?? surveillance: NST once daily ?? GBS/RH/HIV Management: ?? GBS Management: None Required ?? Steroid status & Plan: N/A ?? Consultations: None Additional Issues: ?? Gestational Hypertension: Monitor BP Q2H, 24 hr urine collection, Daily HELLP labs ?? Headache: Tylenol, Fioricet, IV hydration ?? Epigastric discomfort: Pepcid ?? Rubella Non Immune: Requires vaccine post MACEY BUI MD PGY1 07/10/2013 Patient was seen and discussed with Dr. Best Powers, Attending I saw and evaluated Shawn Spears. I agree with the findings and the plan of care as documented in the resident's note. BEST POWERS MD documented in this encounter Miscellaneous Notes * Discharge Summary - Krista Rocha MD - 07/11/2013 1:40 PM EST Discharge Summary Antepartum Patient Name: Shawn Spears Patient Age: 17 y.o. Birthdate: 1995 Admit date: 07/10/2013 Discharge date and time: 07/11/2013 Attending Physician: Don Glass MD Care Provider: [facility] Referring Provider if applicable: N/A Discharge Diagnoses (Hospital Problems) and Secondary Diagnoses (Chronic Problems): Active Hospital Problems Diagnosis ??? Gestational hypertension ??? Rubella non-immune status, antepartum ??? Unspecified high-risk ??? Hx of preeclampsia, prior , currently ??? Previous delivery affecting Resolved Hospital Problems Diagnosis Date Resolved No resolved problems to display. There are no active non-hospital problems to display for this patient. Operations/Major Procedures: None Admission History (per admit note cut and paste) Shawn Spears is a 17 y.o. female who is at 36w1d weeks gestation by 8 week ultrasoundwhose has been complicated by gestational hypertension. She had an elevated blood pressure of 140/95 at her 31 week visit and then again at her 34w6d visit. She reports that she has had headaches on and off that are normally relieved with tylenol, but have been getting worse. She also reports that she has occasional black spots that she sees in her eyes that have been more frequent today. She hasn't had anything to eat since breakfast, but reports that she has drank a liter of water today. Also reports mild intermittent epigastric pain and nausea. Additionally she reports that she had a gush of fluid this morning that soaked her underwear while she was starting a nebulizer for oscar. Reports that she had to change her pants and then wore a pad for the rest of the day. She is very concerned about developing preeclampsia since she had severe preeclampsia with her prior with IUGR and blood pressures in the 180/20s (per patient report) with a delivery at 28 weeks. She is concerned that she has trace protein in her urine and her legs have become much more swollen over the past two days. She had a baseline 24 hr urine performed June 07 with 110mg of protein. HELLP labs were also normal at that time. NSTs were initiated at 31wks primarily due to patient anxiety, and also rising BP per Dr. Carreon and stopped at 34 weeks. is otherwise complicated by: -HX severe preeclampsia: Severe preeclampsia at 28 weeks, IUGR, LTCS for NRFHT -Rubella non immune status Hospital Course: Patient was admitted for observation and sterile speculum exam was pooling/nitrazine/ferning negative. Her cervical exam was 1/0/-3. Bedside ultrasound revealed breech presentation and an GABINO of 11.63cm. HELLP labs were normal H/H 11.4/34.1, platelets 216, Cr of .71, and AST of 14. Throughout her st ay her blood pressures ranged from 120s-140s/57-90. On HD 2 her platelets decreased to 176 and repeat afternoon labs revealed stable labs with AST 11, Creatinine 0.69, and plts 160. 24 hour urine protein also returned <190 mg. At this time, patient with diagnosis of gestational hypertension and not preeclampsia. Patient was discharged home with close follow up on Monday and of next week with the M team. [employer] Received if applicable: None Date Steroid Complete: N/A GBS status: Pending Cervix at discharge: Dilation: 1 Effacement: 0 Station: -3 Important Studies and Lab Data: Lab Results Component Value Date WBC 6.7 07/11/2013 Hemoglobin 10.6* 07/11/2013 Hematocrit 31.3* 07/11/2013 Platelets 160 07/11/2013 Lab Results Component Value Date Creatinine 0.69* 07/11/2013 LFT's Lab Results Component Value Date AST 11 07/11/2013 24 hr urine: <190 mg Pending Studies and Lab Data: The patient will need the following test completed on: 07/10/2013 1. Group B Strep Culture Screen Authorizing Provider: Best Powers MD Discharge Conditions/Prognosis: Good Discharge to: Home Discharge Medications: Your Medications As of 07/11/2013 6:21 PM Notice Some of the medications listed here do not show instructions, such as how often to take the medication. Ask your doctor or nurse how to use these medications. Continued medications, unchanged Dose Details aspirin 81 mg chewable tablet Take 81 mg by mouth daily. 81 mg Quantity: 30 tablet Refills: 3 wiosyfjswq-svciczewvkvif-wmoqyepv per tablet Commonly known as: FIORICET, ESGIC Take 2 tablets by mouth every 4 hours as needed for Pain. 2 tablet Quantity: 10 tablet Refills: 0 VITAMIN ORAL (Ask your doctor or nurse how to take this medication.) Refills: 0 Updated Allergies/ADRs: No Known Allergies Ordered for After Discharge: No discharge procedures on file. Instructions Given to Patient at Discharge: General Instructions None Future Appointments and Orders Future Appointments: Provider: Department: Dept Phone: Center: 07/15/2013 1:00 PM Room t Obstetrics and Gynecology [phone] [facility] 07/15/2013 1:45 PM Severo Carreon MD Obstetrics and Gynecology [phone] [facility] Discharge References/Attachments: Discharge References/Attachments None Electronically Signed by: KRISTA ROCHA MD 07/11/2013 * Plan of Care - Leigha Mcdermott RN - 07/11/2013 6:14 AM EST Problem: Pain, Acute (Adult, Obstetric) Goal: Acute Pain: Acceptable Pain Control/Comfort Level - Pain, Acute (Adult, Obstetric) 0600 c/o headache pain 11/19 0615 Tylenol 1000 mg given * Miscellaneous - Provider, Scanning - 07/10/2013 8:07 PM EST documented in this encounter Plan of Treatment Not on file documented as of this encounter Procedures Procedure Name Priority Date/Time Associated Diagnosis Comments DIFFERENTIAL, AUTOMATED Routine 07/11/19 14 5:36 PM EST CREATININE Routine 07/11/2013 5:36 PM EST CBC (WITH DIFF) Routine 07/11/2013 5:36 PM EST ASPARTATE AMINOTRANSFERASE Routine 07/11/2013 5:36 PM EST U24 HRS AND VOLUME Routine 07/11/2013 4: 16 PM EST PROTEIN, URINE, 24 HOUR Routine 07/11/19 14 4:16 PM EST GROUP B STREPTOCOCCUS SCREEN Routine 07/11/2013 6:58 AM EST GROUP B STREP CULTURE SCREEN Routine 07/11/2013 6:58 AM EST DIFFERENTIAL, AUTOMATED Routine 07/11/19 14 6:00 AM EST CREATININE Routine 07/11/2013 6:00 AM EST CBC (WITH DIFF) Routine 07/11/2013 6:00 AM EST ASPARTATE AMINOTRANSFERASE Routine 07/11/2013 6:00 AM EST ABO/RH TYPING Routine 07/10/2013 6:25 PM EST ANTIBODY SCREEN Routine 07/10/2013 6:25 PM EST TYPE AND SCREEN ([facility]/ANGELA) Routine 07/10/2013 6:25 PM EST HEMOGRAM Routine 07/10/2013 1:38 PM EST CREATININE Routine 07/10/2013 1:38 PM EST ASPARTATE AMINOTRANSFERASE Routine 07/10/2013 1:38 PM EST POCT URINE DIPSTICK Routine 07/10/2013 1 :22 PM EST documented in this encounter Results * Differential, Automated (07/11/2013 5:36 PM EST) Neutrophil % 63.4 34.0 - 71.0 % [facility] MILLENNI[facility] Neutrophil Absolute 4.27 1.50 - 6.30 x10(3)/mcL C[facility] MILLENNIUM Lymph % 27.9 19.0 - 53.0 % CERNER MILLENNIUM Lymphocytes Abs 1.9 1.0 - 3.6 x10(3)/mcL C[facility] MILLENNIUM Monocyte % 6.8 4.0 - 13.0 % CERNER MILLENNIUM Monocyte Abs 0.5 0.2 - 1.0 x10(3)/mcL CERN[facility] MILLENNIUM Eos % 1.2 0.0 - 7.0 % CERNER MILLENNIUM Eosinophils Abs 0.1 0.0 - 0.5 x10(3)/mcL [facility] MILLENNIUM Basophil % 0.3 0.0 - 2.0 % CERNER MILLENNIUM Baso Absolute 0.0 0.0 - 0.2 x10(3)/mcL [facility] MILLENNIUM Immature Gran % 0.40 0.00 - 0.66 % [facility] MILLENNIUM Comment: Immature granulocytes(IG's)percentage and absolute count will include metamyelocytes, myelocytes, and promyelocytes. Blood smears from CBCs yielding IG's will be scanned manually for concordance. If this scan disagrees with the automated IG or if promyelocytes are noted, a manual differential will be performed. Immature Gran Absolute 0.03 0.00 - 0.05 x10(3)/mcL [facility] Blood specimen (specimen) 07/11/2013 5:36 PM EST 07/11/2013 5:36 PM EST Don Glass MD HEMATOLOGY ORDERABLE S Performing Organization Address [facility] Co de Phone Number [facility] * (ABNORMAL) Creatinine (07/11/2013 5:36 PM EST) Creatinine 0.69(L) 0.70 - 1.20 mg/dL [facility] Comment: Please note that the pediatric reference intervals supplied above were not validated at [facility]. Results from pediatric patients should be interpreted in conjunction to the patient's age, height and muscle mass. Est Glomerular Filtration Rate >60 >=60 [facility] Comment: This estimated GFR (eGFR) value was [...] internet browser. http://www.nkdep.nih.gov/lab-evaluation.shtml http://www.kidney.org/professionals/ Blood specimen (specimen) 07/11/2013 5:36 PM EST 07/11/2013 5:36 PM EST Narrative Resulting Agency Comment Spec In Lab Don Glass MD CHEMISTRY ORDERABLES Performing Organization Address [facility] Co de Phone Number [facility] * Aspartate Aminotransferase (07/11/2013 5:36 PM EST) Aspartate Aminotransferase 11 5 - 30 unit/L [facility] Blood specimen (specimen) 07/11/2013 5:36 PM EST 07/11/2013 5:36 PM EST Narrative Resulting Agency Comment Spec In Lab Don Glass MD CHEMISTRY ORDERABLES [facility]ILLENNI[facility] * (ABNORMAL) CBC (with Diff) (07/11/2013 5:36 PM EST) White Blood Cell 6.7 4.0 - 10.0 x10(3)/mc L C[facility] MILLENNIUM Red Blood Cell 3.60(L) 3.93 - 5.22 x10(6)/mc L [facility] MILLENNIUM Hemoglobin 10.6(L) 11.2 - 15.7 gm/dL [facility]ILL[facility] Hematocrit 31.3(L) 34.0 - 45.0 % [facility] MILLENNIUM Mean Cell Volume 86.9 79.0 - 94.0 fL [facility]ILL[facility] Mean Cell Hemoglobin 29.4 26.6 - 32.2 pg [facility] MILLENNI[facility] Mean Cell Hemoglobin Concentration 33.9 32.0 - 36.5 gm/dL [facility]ILL[facility] Platelet 160 145 - 370 x10(3)/mc L [facility] MILLENNI[facility] RDW Standard Deviation 41.3 35.0 - 46.0 fL [facility] RDW coefficient of variation 13.0 10.9 - 14.4 % [facility] MILL[facility]NI[facility] Mean Platelet Volume 11.9 9.0 - 12.0 fL [facility] Blood specimen (specimen) 07/11/2013 5:36 PM EST 07/11/2013 5:36 PM EST Narrative Resulting Agency Comment Spec In Lab Don Glass MD HEMATOLOGY ORDERABLE S [facility] * U24 Hrs and Volume (07/11/2013 4:16 PM EST) Hours Collected 24 hour(s) [facility] MILLENNIUM Total Volume 3100 mL [facility] Urine specimen (specimen) 07/11/2013 4:16 PM EST 07/11/2013 4:55 PM EST Narrative Resulting Agency Comment Spec In Lab Best Powers MD CHEMISTRY ORDERABLES Performing Organization Address [facility] de Phone Number [facility] * (ABNORMAL) Protein, urine, 24 hour (07/11/2013 4:16 PM EST) Protein Concentration, U24 <6 <=80 mg/dL [facility] Comment:result rechecked-NM Protein, 24 Hour Urine <0.19(H) <=0.15 gm/24hr [facility] Urine specimen (specimen) 07/11/2013 4:16 PM EST 07/11/2013 4:55 PM EST Narrative Resulting Agency Comment Spec In Lab Best Powers MD URINE ORDERABLES Performing Organization Address [facility] Phone Number [facility] * Group B Streptococcus Screen (07/11/2013 6:58 AM EST) GBS Screen Neg [facility] Pooled specimen from vaginal introitus and rectal swab (specimen) 07/11/2013 6:58 AM EST 07/11/2013 7:49 AM EST Comment:Penicillin Allergy?- >No Narrative Resulting Agency Comment Spec In Lab Best Powers MD MICROBIOLOGY - GENER AL ORDERABLES Performing Organization Address [facility] Phone Number [facility] * Group B Strep Culture Screen (07/11/2013 6:58 AM EST) Group B Streptococcus Culture ? Patient Name: SHAWN SPEARS ?Ordered By: BEST POWERS ? MR#: [id number] ?LOC: ??BP ? /Sex: ??1995 (17 years), ? Female ? PROCEDURE: Group B Streptococcus Culture ?SOURCE: Vag/Rectal ? COLLECTED: 07/11/2013 06:58 ?FREE TEXT SOURCE: Penicillin Allergy?->No ? STARTED: 07/11/2013 07:49 ? FINAL REPORT ? Final Report ? Verified: 014 10:28 ? No Group B Streptococci isolated ? PRELIMINARY REPORT ? Preliminary Report ? Verified: 014 14:35 ? Culture in progress ? [facility] Pooled specimen from vaginal introitus and rectal swab (specimen) 07/11/2013 6:58 AM EST 07/11/2013 7:49 AM EST Comment:PENICILLIN ALLERGY?- >NO Narrative Resulting Agency Comment Spec In Lab Best Powers MD MICROBIOLOGY - GENER AL ORDERABLES [facility] * Differential, Automated (07/11/2013 6:00 AM EST) Neutrophil % 60.5 34.0 - 71.0 % [facility] MILLENNIUM Neutrophil Absolute 3.85 1.50 - 6.30 x10(3)/mcL [facility] MILLENNI[facility] Lymph % 29.6 19.0 - 53.0 % [facility] MILLENNIUM Lymphocytes Abs 1.9 1.0 - 3.6 x10(3)/mcL [facility] MILLENNI[facility] Monocyte % 7.9 4.0 - 13.0 % [facility] MILLENNIUM Monocyte Abs 0.5 0.2 - 1.0 x10(3)/mcL [facility] MILLENNI[facility] Eos % 1.3 0.0 - 7.0 % [facility] MILLENNIUM Eosinophils Abs 0.1 0.0 - 0.5 x10(3)/[facility] CERNER MILLENNIUM Basophil % 0.2 0.0 - 2.0 % [facility]ER MILLENNIUM Baso Absolute 0.0 0.0 - 0.2 x10(3)/[facility] CERNER MILLENNIUM Immature Gran % 0.50 0.00 - 0.66 % [facility] MILLENNIUM Comment: Immature granulocytes(IG's)percentage and absolute count will include metamyelocytes, myelocytes, and promyelocytes. Blood smears from CBCs yielding IG's will be scanned manually for concordance. If this scan disagrees with the automated IG or if promyelocytes are noted, a manual differential will be performed. Immature Gran Absolute 0.03 0.00 - 0.05 x10(3)/[facility] CERNER MILLENNIUM Blood specimen (specimen) 07/11/2013 6:00 AM EST 07/11/2013 6:16 AM EST Best Powers MD HEMATOLOGY ORDERABLE S [facility] * (ABNORMAL) Creatinine (07/11/2013 6:00 AM EST) Creatinine 0.62(L) 0.70 - 1.20 mg/dL [facility] Comment: Please note that the pediatric reference intervals supplied above were not validated at [facility]. Results from pediatric patients should be interpreted [...] internet browser. http://www.nkdep.nih.gov/lab-evaluation.shtml http://www.kidney.org/professionals/ Blood specimen (specimen) 07/11/2013 6:00 AM EST 07/11/2013 6:16 AM EST Narrative Resulting Agency Comment Spec In Lab Best Powers MD CHEMISTRY ORDERABLES Performing Organization Address City/[facility]/ZIP Co de Phone Number [facility] * (ABNORMAL) CBC (with Diff) (07/11/2013 6:00 AM EST) White Blood Cell 6.4 4.0 - 10.0 x10(3)/mc L [facility] MILLENNIUM Red Blood Cell 3.48(L) 3.93 - 5.22 x10(6)/mc L [facility] MILLENNIUM Hemoglobin 10.4(L) 11.2 - 15.7 gm/dL [facility] MILL[facility]NI[facility] Hematocrit 30.9(L) 34.0 - 45.0 % CERNER MILLENNIUM Mean Cell Volume 88.8 79.0 - 94.0 fL [facility] MILLENNIUM Mean Cell Hemoglobin 29.9 26.6 - 32.2 pg [facility] MILLENNIUM Mean Cell Hemoglobin Concentration 33.7 32.0 - 36.5 gm/dL [facility] MILLENNIUM Platelet 175 145 - 370 x10(3)/mc L [facility] MILLENNIUM RDW Standard Deviation 41.9 35.0 - 46.0 fL [facility] MILLENNIUM RDW coefficient of variation 13.1 10.9 - 14.4 % [facility]ERNER MILLENNIUM Mean Platelet Volume 11.9 9.0 - 12.0 fL [facility] MILLENNI[facility] Blood specimen (specimen) 07/11/2013 6:00 AM EST 07/11/2013 6:16 AM EST Narrative Resulting Agency Comment Spec In Lab Best Powers MD HEMATOLOGY ORDERABLE S [facility] * Aspartate Aminotransferase (07/11/2013 6:00 AM EST) Aspartate Aminotransferase 13 5 - 30 unit/L [facility] MILLENNI[facility] Blood specimen (specimen) 07/11/2013 6:00 AM EST 07/11/2013 6:16 AM EST Narrative Resulting Agency Comment Spec In Lab Best Powers MD CHEMISTRY ORDERABLES Performing Organization Address [facility] Co de Phone Number [facility] * Antibody screen (07/10/2013 6:25 PM EST) Ab Screen Interp Negative [facility] Expires at [id number] on: [id number] [facility] Blood specimen (specimen) 07/10/2013 6:25 PM EST 07/10/2013 6:36 PM EST Narrative Resulting Agency Comment Spec In Lab Best Powers MD BLOOD BANK LAB ORDER ALEA Performing Organization Address [facility] de Phone Number [facility] * ABO/Rh Typing (07/10/2013 6:25 PM EST) [facility] ABORH Type A Pos [facility] Blood specimen (specimen) 07/10/2013 6:25 PM EST 07/10/2013 6:36 PM EST Narrative Resulting Agency Comment Spec In Lab Best Powers MD BLOOD BANK LAB ORDER ALEA Performing Organization Address [facility] de Phone Number [facility] * Aspartate Aminotransferase (07/10/2013 1:38 PM EST) [facility] Aspartate Aminotransferase 14 5 - 30 unit/L [facility] Blood specimen (specimen) 07/10/2013 1:38 PM EST 07/10/2013 1:38 PM EST Narrative Resulting Agency Comment Spec In Lab Best Powers MD CHEMISTRY ORDERABLES Performing Organization Address [facility] Co de Phone Number [facility] * Creatinine (07/10/2013 1:38 PM EST) [facility] Creatinine 0.71 0.70 - 1.20 mg/dL [facility] Comment: Please note that the pediatric reference intervals supplied above were not validated at [facility]. Results from pediatric patients should be interpreted [...] internet browser. http://www.nkdep.nih.gov/lab-evaluation.shtml http://www.kidney.org/professionals/ Blood specimen (specimen) 07/10/2013 1:38 PM EST 07/10/2013 1:38 PM EST Narrative Resulting Agency Comment Spec In Lab Best Powers MD CHEMISTRY ORDERABLES [facility] * (ABNORMAL) Hemogram (07/10/2013 1:38 PM EST) White Blood Cell 8.2 4.0 - 10.0 x10(3)/mc L CERNER MILLENNIUM Red Blood Cell 3.92(L) 3.93 - 5.22 x10(6)/mc L [facility] MILLENNIUM Hemoglobin 11.4 11.2 - 15.7 gm/dL [facility] MILLENNI[facility] Hematocrit 34.1 34.0 - 45.0 % CERNER MILLENNIUM Mean Cell Volume 87.0 79.0 - 94.0 fL [facility] MILLENNIUM Mean Cell Hemoglobin 29.1 26.6 - 32.2 pg [facility] MILLENNIUM Mean Cell Hemoglobin Concentration 33.4 32.0 - 36.5 gm/dL [facility] MILLENNIUM Platelet 216 145 - 370 x10(3)/mc L CERNER MILLENNIUM RDW Standard Deviation 41.6 35.0 - 46.0 fL CERNER MILLENNIUM RDW coefficient of variation 13.1 10.9 - 14.4 % [facility]ER MILLENNIUM Mean Platelet Volume 11.8 9.0 - 12.0 fL [facility] MILLENNI[facility] Blood specimen (specimen) 07/10/2013 1:38 PM EST 07/10/2013 1:38 PM EST Narrative Resulting Agency Comment Spec In Lab Best Powers MD HEMATOLOGY ORDERABLE S [facility] * (ABNORMAL) POCT urine dipstick (07/10/2013 1:22 PM EST) POC Sp [place] 1.000(A) 1.002 - 1.030 POC pH, UA 8.0 5.0 - 8.5 POC Leuk, UA negative Negative - Negative POC Nitrite, UA negative Negative - Negative POC Protein, UA trace Negative - Negative mg/dL POC Glucose, UA normal Normal - Normal mg/dL POC Ketone, UA negative Negative - Negative POC Urobil, UA normal 0.2 - 1.0 mg/dL POC Bili, UA negative Negative - Negative POC Blood, UA negative Negative - Negative christy/uL Best Powers MD POINT OF CARE TEST O RDERABLES documented in this encounter Visit Diagnoses Diagnosis Gestational hypertension- Primary Unspecified hypertension complicating , childbirth, or the puerperium, unspecified as to episode of care Hx of preeclampsia, prior , currently with other poor obstetric history Unspecified high-risk Rubella non-immune status, antepartum Other specified complication, antepartum Hx of preeclampsia, prior , currently with other poor obstetric history Previous delivery affecting Previous delivery, unspecified as to episode of care or not applicable documented in this encounter Administered Medications Inactive Administered Medications - up to 3 most recent administrations Medication Order MAR Action Action Date Dose Rate Site acetaminophen (TYLENOL) tablet 1,000 mg 1,000 mg, Oral, EVERY 4 HOURS PRN, Starting on Mon07/10/13 at 1614, Until Holly 07/11/13 at 2103, Pain, Maximum dose of acetaminophen is 4000 mg from all sources in 24 hours., Routine Given 07/11/2013 2:42 PM EST 1,000 mg Given 07/11/2013 6:18 AM EST 1,000 mg aspirin chewable tablet 81 mg 81 mg, Oral, DAILY, First dose on Mon07/10/13 at 1900, Until Discontinued, Routine Given 07/11/2013 8:45 AM EST 81 mg Given 07/10/2013 7:00 PM EST 81 mg zbeizxdhrb-qvfaugfkpnrqy-udjzxikj (FIORICET, ESGIC) per tablet 1 tablet 1 tablet, Oral, EVERY 4 HOURS PRN, Starting on Mon07/10/13 at 1634, Until Mon07/11/13 at 2103, Headaches, Maximum dose of acetaminophen is 4000 mg from all sources in 24 hours., Routine Given 07/10/2013 5:09 PM EST 1 tablet famotidine (PEPCID) tablet 20 mg 20 mg, Oral, 2 TIMES DAILY, First dose on Mon07/10/13 at 2100, Until Discontinued, Routine Given 07/11/2013 8:46 AM EST 20 mg Given 07/10/2013 9:00 PM EST 20 mg OXYcodone (ROXICODONE) immediate release tablet 5 mg 5 mg, Oral, ONCE, 1 dose, On Mon07/11/13 at 0345, Routine Given 07/11/2013 3:45 AM EST 5 mg vitamin 27 & [id number] 60 mg iron-1 mg tablet Tab 1 tablet 1 tablet, Oral, DAILY, First dose on Mon07/10/13 at 1830, Until Discontinued, Routine Given 07/11/2013 8:46 AM EST 1 tablet Given 07/10/2013 9:20 PM EST 1 tablet prochlorperazine (COMPAZINE) tablet 5 mg 5 mg, Oral, ONCE, 1 dose, On Mon07/10/13 at 2100, Maximum dose: 50 mg / 24 hrs, STAT Given 07/10/2013 9:00 PM EST 5 m g prochlorperazine (COMPAZINE) tablet 5 mg 5 mg, Oral, ONCE, 1 dose, On Mon07/11/13 at 0345, Maximum dose: 50 mg / 24 hrs, Routine Given 07/11/2013 4:42 AM EST 5 mg sodium chloride 0.9 % flush 5 mL 5 mL, Intravenous, 2 TIMES DAILY, First dose on Mon07/10/13 at 2100, Until Discontinued, Routine Given 07/10/2013 9:00 PM EST 5 mLs sodium chloride 0.9% 500 mL IV bolus Intravenous, ONCE, 1 dose, On Mon07/10/13 at 1930 Given 07/10/2013 7:30 PM EST SUMAtriptan (IMITREX) tablet 25 mg 25 mg, Oral, ONCE, 1 dose, On Holly 07/11/13 at 1015, Maximum dose: 200mg in 24 hours, Routine Given 07/11/2013 12:15 PM EST 25 mg documented in this encounter Active and Recently Administered Medications Times are shown in EST. Scheduled Medication Order 07/09/2013 07/10/2013 07/11/2013 aspirin chewable tablet 81 mg (CANCELED) 81 mg, Oral, DAILY, First dose on Mon07/10/13 at 1900, Until Discontinued, Routine 1900 (Given - Provider: Leigha Mcdermott RN) 0845 (Given - Provider: Leigha Coe, ULYSSES) famotidine (PEPCID) tablet 20 mg (CANCELED) 20 mg, Oral, 2 TIMES DAILY, First dose on Mon07/10/13 at 2100, Until Discontinued, Routine 2100 (Given - Provider: Leigha Mcdermott RN) 0846 (Given - Provider: Leigha Coe, ULYSSES) OXYcodone (ROXICODONE) immediate release tablet 5 mg (COMPLETED) 5 mg, Oral, ONCE, 1 dose, On Mon07/11/13 at 0345, Routine 0345 (Given - Provid er: Leigha Mcdermott RN) vitamin 27 & xvkwlda-yhxm-DY 60 mg iron-1 mg tablet Tab 1 tablet (CANCELED) 1 tablet, Oral, DAILY, First dose on Mon07/10/13 at 1830, Until Discontinued, Routine 2120 (Given - Provider: Leigha Mcdermott RN) 0846 (Given - Provider: Leigha Coe, ULYSSES) prochlorperazine (COMPAZINE) tablet 5 mg (COMPLETED) 5 mg, Oral, ONCE, 1 dose, On Mon07/10/13 at 2100, Maximum dose: 50 mg / 24 hrs, STAT 2100 (Given - Provider: Leigha Mcdermott RN) prochlorperazine (COMPAZINE) tablet 5 mg (COMPLETED) 5 mg, Oral, ONCE, 1 dose, On Mon07/11/13 at 0345, Maximum dose: 50 mg / 24 hrs, Routine 0442 (Given - Provid er: Leigha Mcdermott RN) sodium chloride 0.9 % flush 5 mL (CANCELED) 5 mL, Intravenous, 2 TIMES DAILY, First dose on Mon07/10/13 at 2100, Until Discontinued, Routine 2100 (Given - Provider: Leigha Mcdermott RN) 0900 (Due) sodium chloride 0.9% 500 mL IV bolus (COMPLETED) Intravenous, ONCE, 1 dose, On Mon07/10/13 at 1930 1930 (Given - Provider: Leigha Mcdermott RN) SUMAtriptan (IMITREX) tablet 25 mg (COMPLETED) 25 mg, Oral, ONCE, 1 dose, On Holly 07/11/13 at 1015, Maximum dose: 200mg in 24 hours, Routine 1215 (Given - Provid er: Leigha Coe RN) PRN Medication Order 07/09/2013 07/10/2013 07/11/2013 acetaminophen (TYLENOL) tablet 1,000 mg (CANCELED) 1,000 mg, Oral, EVERY 4 HOURS PRN, Starting on Mon07/10/13 at 1614, Until Holly 07/11/13 at 2103, Pain, Maximum dose of acetaminophen is 4000 mg from all sources in 24 hours., Routine 0618 (Given - Provid er: Leigha Mcdermott RN)1442 (Given - Provider: Leigha Coe RN) kamhtqwfrd-vkmzihiyzgcuq-od ffeine (FIORICET, ESGIC) per tablet 1 tablet (CANCELED) 1 tablet, Oral, EVERY 4 HOURS PRN, Starting on Mon07/10/13 at 1634, Until Holly 07/11/13 at 2103, Headaches, Maximum dose of acetaminophen is 4000 mg from all sources in 24 hours., Routine 1709 (Given - Provider: Leigha Coe RN) documented in this encounter Care Teams Nurseryman Assistant Relationship Specialty Start Date End Date Domonique Sweeney, SPECIAL NEEDS TEACHER [facility] [address] [place] [address] PCP - General 11/30/12 06/12/18 documented as of this encounter
--- OUTSIDE RECORDS SUMMARY | 2024-06-26 16:46 | XMS_ITS | Encounter Summary ---
[place] [address] Care Team Providers Care Patient Representative Name Role Phone Zahra Domonique Kim APRN Primary Care Provider [phone]- [phone] Reason for Visit * Reason Comments Routine Visit Encounter Details Date Type Department Care Team (Latest Contact Info) Description 05/03/2013 1:30 PM EST Routine Obstetrics [place] [id number] Don Boudreaux MD GA: [id number] Discharge Disposition: Home Social History Tobacco Use [...] Sign Reading Time Taken Comments Blood Pressure 122/74 05/03/2013 1:10 PM EST Pulse - - Temperature - - Respiratory Rate - - Oxygen Saturation - - Inhaled Oxygen Concentration - - Weight 76.2 kg (168 lb) 05/03/2013 1:10 PM EST Height - - Body Mass Index 28.84 12/17/2012 2:37 PM EDT documented in this encounter Progress Notes * Don Boudreaux MD - 05/03/2013 1:23 PM EST No complaints, baby moving well. Is nervous as this around the time of her last delivery. We discussed s/sx of preeclampsia. She is checking her BP at home and we discussed to call for 140/90. We will dip her urine today. Given prior history, will do q2 week visits. Has US for 05/31. Previous delivery affecting We discussed the implications of prior section [...] risk of infection. However, overall a successful isthe safest route of delivery for a mother [...] measures during labor. consent was signed today. documented in this encounter Miscellaneous Notes * Miscellaneous - Provider, Scanning - 05/30/2013 7:45 AM EST * Assessment & Plan Note - Don Boudreaux MD - 05/03/2013 1:34 PM EST Associated Problem(s): Previous delivery affecting (Resolved 09/02/2013) We discussed the implications of prior section [...] risk of infection. However, overall a successful isthe safest route of delivery for a mother [...] measures during labor. consent was signed today. documented in this encounter Plan of Treatment Not on file documented as of this encounter Procedures Procedure Name Priority Date/Time Associated Diagnosis Comments DIFFERENTIAL, AUTOMATED Routine 05/03/2013 1:03 PM EST GLUCOSE 1 HOUR POST PRANDIAL Routine 05/03/2013 1:03 PM EST Hx of preeclampsia, prior , currently Previous delivery affecting Unspecified high-risk CBC (WITH DIFF) Routine 05/03/2013 1:03 PM EST Hx of preeclampsia, prior , currently Previous delivery affecting Unspecified high-risk documented in this encounter Results * (ABNORMAL) Differential, Automated (05/03/2013 1:03 PM EST) Neutrophil % 78.0(H) 34.0 - 71.0 % CERNER MILLENNIUM Neutrophil Absolute 8.88(H) 1.50 - 6.30 x10(3)/mc L CERNER MILLENNIUM Lymph % 15.7(L) 19.0 - 53.0 % CERNER MILLENNIUM Lymphocytes Abs 1.8 1.0 - 3.6 x10(3)/mc L CERNER MILLENNIUM Monocyte % 4.4 4.0 - 13.0 % CERNER MILLENNIUM Monocyte Abs 0.5 0.2 - 1.0 x10(3)/mc L CERNER MILLENNIUM Eos % 1.1 0.0 - 7.0 % CERNER MILLENNIUM Eosinophils Abs 0.1 0.0 - 0.5 x10(3)/mc L CERNER MILLENNIUM Basophil % 0.1 0.0 - 2.0 % CERNER MILLENNIUM Baso Absolute 0.0 0.0 - 0.2 x10(3)/mc L CERNER MILLENNIUM Immature Gran % 0.70(H) 0.00 - 0.66 % CERNER MILLENNIUM Comment: Immature granulocytes(IG's)percentage and absolute count will include metamyelocytes, myelocytes, and promyelocytes. Blood smears from CBCs yielding IG's will be scanned manually for concordance. If this scan disagrees with the automated IG or if promyelocytes are noted, a manual differential will be performed. Immature Gran Absolute 0.08(H) 0.00 - 0.05 x10(3)/mc L CERNER MILLENNIUM Blood specimen (specimen) 05/03/2013 1:03 PM EST 05/03/2013 1:10 PM EST Don Boudreaux MD HEMATOLOGY ORDERABLE [facility] * Glucose 1 Hour Post Prandial (05/03/2013 1:03 PM EST) Glucose Post Prandial, 1 Hour 112 mg/dL CERNER MILLENNIUM Blood specimen (specimen) 05/03/2013 1:03 PM EST 05/03/2013 1:10 PM EST Narrative Resulting Agency Comment Spec In Lab Don Boudreaux MD CHEMISTRY ORDERABLES Performing Organization Address [facility] Co de Phone Number MCKENZIE ELLISIUM * (ABNORMAL) CBC (with Diff) (05/03/2013 1:03 PM EST) White Blood Cell 11.4(H) 4.0 - 10.0 x10(3)/mc L CERNER MILLENNIUM Red Blood Cell 3.55(L) 3.93 - 5.22 x10(6)/mc L CERNER MILLENNIUM Hemoglobin 10.7(L) 11.2 - 15.7 gm/dL CERNER MILLENNIUM Hematocrit 32.1(L) 34.0 - 45.0 % CERNER MILLENNIUM Mean Cell Volume 90.4 79.0 - 94.0 fL CERNER MILLENNIUM Mean Cell Hemoglobin 30.1 26.6 - 32.2 pg CERNER MILLENNIUM Mean Cell Hemoglobin Concentration 33.3 32.0 - 36.5 gm/dL CERNER MILLENNIUM Platelet 231 145 - 370 x10(3)/mc L CERNER MILLENNIUM RDW Standard Deviation 44.6 35.0 - 46.0 fL CERNER MILLENNIUM RDW coefficient of variation 13.6 10.9 - 14.4 % CERNER MILLENNIUM Mean Platelet Volume 10.5 9.0 - 12.0 fL CERNER MILLENNIUM Blood specimen (specimen) 05/03/2013 1:03 PM EST 05/03/2013 1:10 PM EST Narrative Resulting Agency Comment Spec In Lab Don Boudreaux MD HEMATOLOGY ORDERABLE S Performing Organization Address City/[facility]/ZIP Co de Phone Number MCKENZIE RUSH documented in this encounter Visit Diagnoses Diagnosis Hx of preeclampsia, prior , currently with other poor obstetric history Previous delivery affecting Previous delivery, unspecified as to episode of care or not applicable Unspecified high-risk documented in this encounter Care Teams Patient Representative Relationship Specialty Start Date End Date Domonique Sweeney APRN [facility] [address] [place] [address] PCP - General 11/30/12 06/12/18 documented as of this encounter
--- OUTSIDE RECORDS SUMMARY | 2024-06-26 16:46 | XMS_ITS | Encounter Summary ---
Author Organization [facility] Address [facility] [place] [address] Care Team Providers Care Insurance Office Manager Name Role Phone Fernando Lomeli MD Primary Care Provider [phone] Encounter Details Date Type Department Care Team (Latest Contact Info) Description 08/06/2010 9:37 AM EST - 08/06/2010 9:42 AM EST Hospital Encounter Birthing [place] [address] Sohail Carreon MD [facility] OBSTETRICS [place] [address] Discharge Disposition: Home Social History Tobacco Use Types Packs/Day Years Used Date Smoking Tobacco: Never Assessed Comments Yes Sex and Gender Information Value Date Recorded Sex Assigned at Not on file Gender Identity Not on file Sexual Orientation Not on file documented as of this encounter Medications at Time of Discharge Medication Sig Dispensed Refills Start Date End Date VITS W-CA,FE,FA,<1MG, ( VITAMIN ORAL) 08/03/201008/11 NIFEdipine (PROCARDIA XL) 30 mg 24 hr tablet 30 MG = 1 Tablet(s), PO, Twice daily 08/03/2010 09/14/2010 labetalol (NORMODYNE) 200 mg tablet 200 MG = 1 Tablet(s), PO, Twice daily 08/03/2010 09/14/2010 documented as of this encounter Plan of Treatment Not on file documented as of this encounter Visit Diagnoses Not on filedocumented in this encounter Care Teams Insurance Office Manager Relationship Specialty Start Date End Date Fernando Lomeli MD [address] [place] [address] PCP - General 07/27/10 11/29/12 documented as of this encounter
--- OUTSIDE RECORDS SUMMARY | 2024-06-26 16:46 | XMS_ITS | Encounter Summary ---
[place] [address] Care Team Providers Care Ophthalmic Dispenser Name Role Phone Dmoonique Sweeney Judy CABA Primary Care Provider [phone]- [phone] Reason for Visit * Reason Comments Routine Visit Encounter Details Date Type Department Care Team (Latest Contact Info) Description 05/31/2013 2:00 PM EST Routine Obstetrics [place] [id number] CLINIC, Don Sanchez MD [place]: [id number] Discharge Disposition: Home Social History Tobacco Use [...] Sign Reading Time Taken Comments Blood Pressure 132/80 05/31/2013 2:03 PM EST Pulse - - Temperature - - Respiratory Rate - - Oxygen Saturation - - Inhaled Oxygen Concentration - - Weight 80.8 kg (178 lb 1.6 oz) 05/31/2013 1:52 P M EST Height - - Body Mass Index 30.57 12/17/2012 2:37 PM EDT documented in this encounter Progress Notes * Don Boudreaux MD - 05/31/2013 2:01 PM EST She is checking her BP at home, for the past 2 days, the systloics have been in soha 140's and the diastolics in the 70's. She denies a change in QUESADA or RUQ pain. US today: EFW at 88% with normal fluid. Increase BP check to 2x/day, call if > 145/ 90, or QUESADA or RQU pain or decreased movement. RTC 1 week for repeat BP check. documented in this encounter Plan of Treatment Not on file documented as of this encounter Visit Diagnoses Diagnosis Hx of preeclampsia, prior , currently , third trimester Previous delivery affecting Previous delivery, unspecified as to episode of care or not applicable Unspecified high-risk documented in this encounter Care Teams Ophthalmic Dispenser Relationship Specialty Start Date End Date Domonique Sweeney APRN [facility] [address] [facility] [place] [address] PCP - General 11/30/12 06/12/18 documented as of this encounter
--- OUTSIDE RECORDS SUMMARY | 2024-06-26 16:46 | XMS_ITS | Encounter Summary ---
Author Organization [facility] [place] [address] Care Team Providers Care Button Riveter Name Role Phone Fernando Lomeli MD Primary Care Provider [phone] Encounter Details Date Type Department Care Team (Latest Contact Info) Description 08/05/2010 9:33 AM EST - 08/05/2010 4:19 PM [facility] Hospital Encounter Birthing [place] [facility] [place] [id number] Georgia Sarmiento MD [facility] OBSTETRICS AND GYNECOLOGY [place] [phone] Discharge Disposition: Home Social History Tobacco Use [...] on filedocumented in this encounter Care Teams Button Riveter Relationship Specialty Start Date End Date Fernando Lomeli MD [address] [place] [address] PCP - General 07/27/10 11/29/12 documented as of this encounter
--- OUTSIDE RECORDS SUMMARY | 2024-06-26 16:46 | XMS_ITS | Encounter Summary ---
Author Organization [place] [address] Care Team Providers Care Juice Packaging Machines Setter Name Role Phone Fernando Lomeli MD Primary Care Provider [phone] Encounter Details Date Type Department Care Team (Latest Contact Info) Description 08/04/2010 9:40 AM EST - 08/04/2010 10:31 AM [facility] Hospital Encounter Birthing [place] [address] Jackelyn Coulter MD Discharge Disposition: Home Social History Tobacco Use [...] on filedocumented in this encounter Care Teams Juice Packaging Machines Setter Relationship Specialty Start Date End Date Fernando Lomeli MD [address] [place] [address] PCP - General 07/27/10 11/29/12 documented as of this encounter
--- OUTSIDE RECORDS SUMMARY | 2024-06-26 16:46 | XMS_ITS | Encounter Summary ---
Author Organization [facility] [place] [address] Care Team Providers Care Practice Professional Name Role Phone Fernando Lomeli MD Primary Care Provider [phone] Encounter Details Date Type Department Care Team (Late st Contact Info) Description 09/07/2010 8:45 AM EDT Visit Obstetrics [place] [address] Jaz Jorgensen MD [facility] [address] OBSTET[place] [address] Discharge Disposition: Home Social History Tobacco Use [...] on filedocumented in this encounter Care Teams Practice Professional Relationship Specialty Start Date End Date Fernando Lomeli MD [address] [place] [address] PCP - General 07/27/10 11/29/12 documented as of this encounter
--- OUTSIDE RECORDS SUMMARY | 2024-06-26 16:46 | XMS_ITS | Encounter Summary ---
[place] [address] Care Team Providers Care Digital Associate Name Role Phone Zahra Domonique Kim APRN Primary Care Provider +1- [phone] Reason for Visit * Reason Comments Initial Visit Encounter Details Date Type Department Care Team (Latest Contact Info) Description 12/17/2012 2:45 PM EDT Initial Obstetrics [place] [phone] Georgia Gaona MD [facility] DR OBSTETRICS [place] [address] GA: [id number] Discharge Disposition: Home Social History Tobacco Use [...] Sign Reading Time Taken Comments Blood Pressure 102/66 12/17/2012 2:37 PM EDT Pulse - - Temperature - - Respiratory Rate - - Oxygen Saturation - - Inhaled Oxygen Concentration - - Weight 72.3 kg (159 lb 4.8 oz) 12/17/2012 2:37 P M EDT Height 162.6 cm (5' 4) 12/17/2012 2:37 PM EDT Body Mass Index 27.34 12/17/2012 2:37 PM EDT documented in this encounter Progress Notes * Georgia Gaona MD - 12/24/2012 2:19 PM EDT Start low dose aspirin. * Georgia Gaona MD - 12/17/2012 3:13 PM EDT Here with two busy toddlers (hers and another family member). Previous complicated by severe preeclampsia at 28 weeks delivered by section. She was transferred here from [place]. She had her IUD removed months ago and was taking oral contraceptives. Has no idea of her menstrual dating. She wants aneuploidy screen. Had CF in prior . Wants a RCS for delivery. PE limited to abdominal exam - uterus not palpable. Will return with US for viability and finish the NOB labs today. * Denae Magana - 12/17/2012 2:37 PM EDT Patient here for scheduled initial visit due to history of pre eclampsia. She was delivered due to pre eclampsia at 28 weeks. documented in this encounter Miscellaneous Notes * Addendum Note - Tameka Fried LPN - 12/17/2012 3:42 PM EDTAddended by: TAMEKA FRIED on: 12/17/2012 03:42 PM Modules accepted: Orders * Addendum Note - Jose Christian - 12/17/2012 3:37 PM EDTAddended by: JOSE CHRISTIAN on: 12/17/2012 03:37 PM Modules accepted: Orders documented in this encounter Plan of Treatment Not on file documented as of this encounter Procedures Procedure Name Priority Date/Time Associated Diagnosis Comments URINE CULTURE Routine 12/17/2012 4:57 PM EDT Hx of preeclampsia, prior , currently SCREEN Routine 12/17/2012 3:50 PM EDT Hx of preeclampsia, prior , currently DIFFERENTIAL, AUTOMATED Routine 12/17/2012 3:50 PM EDT SYPHILIS ANTIBODY SCREEN WITH REFLEX Routine 12/17/2012 3:50 PM EDT Hx of preeclampsia, prior , currently ABO/RH TYPING Routine 12/17/2012 3:50 PM EDT Hx of preeclampsia, prior , currently RUBELLA ANTIBODY, IGG Routine 12/17/2012 3:50 PM EDT Hx of preeclampsia, prior , currently HIV SCREEN, 4TH GENERATION ([facility]/CGP/APD/NLH)PE RFORMABLE Routine 12/17/2012 3:50 PM EDT Hx of preeclampsia, prior , currently HEPATITIS B SURFACE ANTIGEN Routine 12/17/2012 3:50 PM EDT Hx of preeclampsia, prior , currently CBC (WITH DIFF) Routine 12/17/2012 3:50 PM EDT Hx of preeclampsia, prior , currently ANTIBODY SCREEN Routine 12/17/2012 3:50 PM EDT Hx of preeclampsia, prior , currently VARICELLA ZOSTER ANTIBODY, IGG Routine 12/17/2012 3:50 PM EDT Hx of preeclampsia, prior , currently POCT URINE DIPSTICK Routine 12/17/2012 Hx of preeclampsia, prior , currently documented in this encounter Results * US OBS viability (12/25/2012 2:08 PM EDT) Anatomical Region Laterality Modality Pelvis, Abdomen Ultrasound 12/25/2012 2:08 PM EDT Narrative 12/25/2012 2:29 PM EDT ?OBSTETRICS REPORT ? (Signed Final 12/25/2012 02:29 pm) Patient Info ID: ? [id number] ? : ??[birth year] (17 yrs) Name: ? SHAWN PEÑALOZA ? Visit Date: 12/25/2012 02:06 pm ? JANE Performed By Performed By: ?Zac Genao RDMS Attending: ? Severo Carreon MD ??Almaz Referred By: ? GEORGIA GAONA MD Service(s) Provided UOBVIB - ??Viability - Transabdominal - [id number] ?[id number] Indications dating and possible NT if EGA is appropriate *M TO READ* Evaluation Num Of Fetuses: ?1 Gest. Sac: ? Visualized Yolk Sac: ?Visualized Heart Rate: ??156 ?bpm Cardiac Activity: ??Observed, normal rhythm Presentation: ?Variable Placenta: ?Too early to evaluate Amniotic Fluid GABINO FV: ?Too early to evaluate -------- Biometry -------- CRL: ?16 ??mm ?G. Age: ?? 8w 0d ? TYE: ?? 08/06/13 Gestational Age Best: ?8w 0d ?Det. By: ??U/S C R L ?TYE: ?? 08/06/13 ? (12/25/12) Cervix Uterus Adnexa Left Ovary: ?Visualized Right Ovary: ?? Visualized Impression 1st Trimester Summary Single living intrauterine with a gestational age of 8w 0d based on CRL The crown rump length corresponds to a gestational age of 8w 0d. I ??viewed the images and agree with the above interpretation. Thank you for allowing us to participate in the care of SHAWN LAFLEUR. Please do not hesitate to call if you have any questions. ?Severo Carreon MD Electronically Signed Final Report ?? 12/25/2012 02:29 pm Procedure Note Severo Carreon MD - 12/25/2012 OBSTETRICS REPORT (Signed Final 12/25/2012 02:29 pm) Patient Info ID: [id number] : [birth year] (17 yrs) Name: SHAWN PEÑALOZA Visit Date: 12/25/2012 02:06 pm JANE Performed By Performed By: Zac Genao RDMS Attending: Severo Carreon MD Referred By: GEORGIA GAONA MD Service(s) Provided UOBVIB - Viability - Transabdominal - [id number] Indications dating and possible NT if EGA is appropriate *MFM TO READ* Evaluation Num Of Fetuses: 1 Gest. Sac: Visualized Yolk Sac: Visualized Heart Rate: 156 bpm Cardiac Activity: Observed, normal rhythm Presentation: Variable Placenta: Too early to evaluate Amniotic Fluid GABINO FV: Too early to evaluate -------- Biometry -------- CRL: 16 mm G. Age: 8w 0d TYE: 08/06/13 Gestational Age Best: 8w 0d Det. By: U/S Cas Ferro TYE: 08/06/13 (12/25/12) Cervix Uterus Adnexa Left Ovary: Visualized Right Ovary: Visualized Impression 1st Trimester Summary Single living intrauterine with a gestational age of 8w 0d based on CRL The crown rump length corresponds to a gestational age of 8w 0d. I viewed the images and agree with the above interpretation. Thank you for allowing us to participate in the care of SHAWN LAFLEUR. Please do not hesitate to call if you have any questions. Severo Carreon MD Electronically Signed Final Report 12/25/2012 02:29 pm Georgia Gaona MD IMG OB ORDERABLES * Urine culture Clean Catch Urine (12/17/2012 4:57 PM EDT) Urine Culture ? Patient Name: SHAWN SPEARS ?Ordered By: GEORGIA GAONA ? MR#: [id number] ?LOC: ??5L ? /Sex: ??1995 (17 years), ? Female ? PROCEDURE: Urine Culture ?SOURCE: U CC ? COLLECTED: 12/17/2012 16:57 ? STARTED: 12/17/2012 16:57 ? FINAL REPORT ? Final Report ? Verified:2012 15:24 ? 1,000-9,000 cfu/ml Gram Positive organisms , probable contaminant ? LEBRONLISBETH VALDEZAUDI Urine specimen obtained by clean catch procedure (specimen) 12/17/2012 4:57 PM EDT 12/17/2012 4:57 PM EDT Narrative Resulting Agency Comment Spec In Lab Georgia Gaona MD MICROBIOLOGY - GENER AL ORDERABLES MCKENZIE RUSH * Differential, Automated (12/17/2012 3:50 PM EDT) Neutrophil % 67.5 34.0 - 71.0 % CERNER MILLENNIUM Neutrophil Absolute 6.28 1.50 - 6.30 x10(3)/mcL CERNER MILLENNIUM Lymph % 24.8 19.0 - 53.0 % CERNER MILLENNIUM Lymphocytes Abs 2.3 1.0 - 3.6 x10(3)/mcL CERNER MILLENNIUM Monocyte % 5.3 4.0 - 13.0 % CERNER MILLENNIUM Monocyte Abs 0.5 0.2 - 1.0 x10(3)/mcL CERNER MILLENNIUM Eos % 1.9 0.0 - 7.0 % CERNER MILLENNIUM Eosinophils Abs 0.2 0.0 - 0.5 x10(3)/mcL CERNER MILLENNIUM Basophil % 0.2 0.0 - 2.0 % CERNER MILLENNIUM Baso Absolute 0.0 0.0 - 0.2 x10(3)/mcL CERNER MILLENNIUM Immature Gran % 0.30 0.00 - 0.66 % CERNER MILLENNIUM Comment: Immature granulocytes(IG's)percentage and absolute count will include metamyelocytes, myelocytes, and promyelocytes. Blood smears from CBCs yielding IG's will be scanned manually for concordance. If this scan disagrees with the automated IG or if promyelocytes are noted, a manual differential will be performed. Immature Gran Absolute 0.03 0.00 - 0.05 x10(3)/mcL MCKENZIE VALDEZENNIUM Blood specimen (specimen) 12/17/2012 3:50 PM EDT 12/17/2012 3:57 PM EDT Georgia Gaona MD HEMATOLOGY ORDERABLE S MCKENZIE RUSH * Syphilis Antibody, IgG (12/17/2012 3:50 PM EDT) Syphilis IgG Neg Neg CERNER MILLENNIUM Blood specimen (specimen) 12/17/2012 3:50 PM EDT 12/18/2012 6:57 AM EDT Narrative Resulting Agency Comment Spec In Lab Georgia Gaona MD CHEMISTRY ORDERABLES Performing Organization Address [facility] Co de Phone Number [facility] * Antibody screen (12/17/2012 3:50 PM EDT) Ab Screen Interp Negative [facility] Expires at [id number] on: [id number] [facility] Blood specimen (specimen) 12/17/2012 3:50 PM EDT 12/17/2012 3:56 PM EDT Narrative Resulting Agency Comment Spec In Lab Georgia Gaona MD BLOOD BANK LAB ORDER ALEA Performing Organization Address [facility] Phone Number [facility] * ABO/Rh Typing (12/17/2012 3:50 PM EDT) ABORH Type A Pos [facility] Blood specimen (specimen) 12/17/2012 3:50 PM EDT 12/17/2012 3:56 PM EDT Narrative Resulting Agency Comment Spec In Lab Georgia Gaona MD BLOOD BANK LAB ORDER ALEA Performing Organization Address [facility] Phone Number [facility] * (ABNORMAL) Rubella Antibody, IgG (12/17/2012 3:50 PM EDT) Rubella Antibody IgG Negative( A) Positive [facility] Comment: Please note: ??A positive result for this assay indicates that antibody levels are >or= 10.0 IU/mL and is considered to be an indicator of positive immune status. Blood specimen (specimen) 12/17/2012 3:50 PM EDT 12/17/2012 3:57 PM EDT Narrative Resulting Agency Comment Spec In Lab Georgia Gaona MD CHEMISTRY ORDERABLES Performing Organization Address [facility] Co de Phone Number [facility] * Hepatitis B Surface Antigen (12/17/2012 3:50 PM EDT) Hepatitis B Surface Antigen Negative Negative CERNER MILLENNIUM Blood specimen (specimen) 12/17/2012 3:50 PM EDT 12/17/2012 3:57 PM EDT Narrative Resulting Agency Comment Spec In Lab Georgia Gaona MD CHEMISTRY ORDERABLES MCKENZIE ELLISIUM * CBC (with Diff) (12/17/2012 3:50 PM EDT) White Blood Cell 9.3 4.0 - 10.0 x10(3)/mcL CERNER MILLENNIUM Red Blood Cell 4.06 3.93 - 5.22 x10(6)/mcL CERNER MILLENNIUM Hemoglobin 11.7 11.2 - 15.7 gm/dL CERNER MILLENNIUM Hematocrit 34.6 34.0 - 45.0 % CERNER MILLENNIUM Mean Cell Volume 85.2 79.0 - 94.0 fL CERNER MILLENNIUM Mean Cell Hemoglobin 28.8 26.6 - 32.2 pg CERNER MILLENNIUM Mean Cell Hemoglobin Concentration 33.8 32.0 - 36.5 gm/dL CERNER MILLENNIUM Platelet 262 145 - 370 x10(3)/mcL CERNER MILLENNIUM RDW Standard Deviation 38.6 35.0 - 46.0 fL CERNER MILLENNIUM RDW coefficient of variation 12.5 10.9 - 14.4 % CERNER MILLENNIUM Mean Platelet Volume 10.4 9.0 - 12.0 fL CERNER MILLENNIUM Blood specimen (specimen) 12/17/2012 3:50 PM EDT 12/17/2012 3:57 PM EDT Narrative Resulting Agency Comment Spec In Lab Georgia Gaona MD HEMATOLOGY ORDERABLE S MCKENZIE ELLISIUM * Varicella zoster Antibody, IgG (12/17/2012 3:50 PM EDT) Varicella Zoster Antibody IgG Pos CERNER MILLENNIUM Blood specimen (specimen) 12/17/2012 3:50 PM EDT 12/18/2012 6:57 AM EDT Narrative Resulting Agency Comment Spec In Lab Georgia Gaona MD IMMUNOLOGY ORDERABLE S Performing Organization Address [facility] Co de Phone Number [facility] * HIV (12/17/2012 3:50 PM EDT) [facility] HIV 1/2 Ab Negative [facility] Blood specimen (specimen) 12/17/2012 3:50 PM EDT 12/17/2012 3:57 PM EDT Narrative Resulting Agency Comment Spec In Lab Georgia Gaona MD CHEMISTRY ORDERABLES Performing Organization Address [facility] Co de Phone Number [facility] * POCT urine dipstick (12/17/2012) [facility] POC Sp [place] 1.015 1.002 - 1.030 POC pH, UA 7 5.0 - 8.5 POC Leuk, UA neg Negative - Negative POC Nitrite, UA neg Negative - Negative POC Protein, UA neg Negative - Negative mg/dL POC Glucose, UA neg Normal - Normal mg/dL POC Ketone, UA neg Negative - Negative POC Urobil, UA neg 0.2 - 1.0 mg/dL POC Bili, UA neg Negative - Negative POC Blood, UA neg Negative - Negative christy/uL Georgia Gaona MD POINT OF CARE TEST O RDERABLES documented in this encounter Visit Diagnoses Diagnosis Hx of preeclampsia, prior , currently - Primary with other poor obstetric history Hx of preeclampsia, prior , currently with other poor obstetric history documented in this encounter Care Teams Digital Associate Relationship Specialty Start Date End Date Domonique Sweeney APRN [facility] [address] [place] [address] PCP - General 11/30/12 06/12/18 documented as of this encounter
--- OUTSIDE RECORDS SUMMARY | 2024-06-26 16:46 | XMS_ITS | Encounter Summary ---
[place] [address] Care Team Providers Care Drafter Electronic Name Role Phone Fernando Lomeli MD Primary Care Provider +1 -[phone] Encounter Details Date Type Department Care Team (Latest Contact Info) Description 08/13/2010 11:00 AM EST Clinical Support Obstetrics [place] [phone] NURSE, DATE PULLER Discharge Disposition: Home Social History Tobacco Use [...] on filedocumented in this encounter Care Teams Drafter Electronic Relationship Specialty Start Date End Date Fernando Lomeli MD [address] [place] [address] PCP - General 07/27/10 11/29/12 documented as of this encounter
--- OUTSIDE RECORDS SUMMARY | 2024-06-26 16:46 | XMS_ITS | Encounter Summary ---
Author Organization [facility] [place] [address] Care Team Providers Care Tread Cutter Name Role Phone Fernando Lomeli MD Primary Care Provider +1 -[phone] Encounter Details Date Type Department Care Team (Latest Contact Info) Description 08/03/2010 8:51 AM EST - 08/03/2010 9:[address] [facility] Hospital Encounter Birthing [place] [address] Jackelyn Coulter MD Discharge Disposition: [...] on filedocumented in this encounter Care Teams Tread Cutter Relationship Specialty Start Date End Date Fernando Lomeli MD [address] [place] [address] PCP - General 07/27/10 11/29/12 documented as of this encounter
--- OUTSIDE RECORDS SUMMARY | 2024-06-26 16:46 | XMS_ITS | Encounter Summary ---
[place] [address] Care Team Providers Care Cigar Roller Name Role Phone ZahraRaquelDomoniquemichelle Kim APRN Primary Care Provider +1- [phone] Reason for Visit * Reason Comments Routine Visit Encounter Details Date Type Department Care Team (Latest Contact Info) Description 06/20/2013 1:45 PM EST Routine Obstetrics [place] [phone] Severo Carreon MD [facility] OBSTETRICS [place] [address] GA: [id number] Discharge Disposition: Home Social History Tobacco Use [...] Sign Reading Time Taken Comments Blood Pressure 126/78 06/20/2013 1:06 PM EST Pulse - - Temperature - - Respiratory Rate - - Oxygen Saturation - - Inhaled Oxygen Concentration - - Weight 83.9 kg (184 lb 14.4 oz) 06/20/2013 1:06 PM EST Height - - Body Mass Index 31.74 12/17/2012 2:37 PM EDT documented in this encounter Progress Notes * Severo Carreon MD - 06/20/2013 1:30 PM EST Good movement. No contractions/ leaking fluid / bleeding / pain. No headache, vision changes, RUQ pain. Reactive NST. * Severo Carreon MD - 06/20/2013 1:28 PM EST 06/20/13 1328 Nonstress Test, Fetus A NST Start Time 1243 Baseline Rate 135 bpm Variability 6-25 BPM Accelerations Present Decelerations None Nonstress Test Interpretation Reactive, >32 weeks: two 15 bpm accelerations lasting 15 seconds Overall Impression Reassuring for gestational age I personally reviewed the FH R tracing and documented the interpretation. Severo CARREON MD documented in this encounter Plan of Treatment Not on file documented as of this encounter Visit Diagnoses Diagnosis Gestational hypertension, third trimester- Primary documented in this encounter Care Teams Cigar Roller Relationship Specialty Start Date End Date Domonique Sweeney APRN [facility] [address] [place] [address] PCP - General 11/30/12 06/12/18 documented as of this encounter
--- OUTSIDE RECORDS SUMMARY | 2024-06-26 16:46 | XMS_ITS | Encounter Summary ---
Author Organization [place] [address] Care Team Providers Care Hide Buffer Name Role Phone Domonique Sweeney APRN Primary Care Provider [phone]- [phone] Encounter Details Date Type Department Care Team (Latest Contact Info) Description 06/07/2013 2:22 PM EST - 06/07/2013 11:59 PM EST Hospital [place] [phone] Radha Soliman MD Hx of preeclampsia, prior , currently , third trimester Discharge Disposition: Home Social History [...] Sig Dispensed Refills Start Date End Date aspirin 81 mg chewable tabletIndications:Hx of preeclampsia, prior , currently Take 81 mg by mouth daily. 30 tablet 3 12/24/2012 09/02/2013 VITS W-CA,FE,FA,<1MG, ( VITAMIN ORAL) 08/03/201008/11 documented as of this encounter Plan of Treatment Not on file documented as of this encounter Procedures Procedure Name Priority Date/Time Associated Diagnosis Comments U24 HRS AND VOLUME Routine 06/07/2013 9: 20 AM EST PROTEIN, URINE, 24 HOUR Routine 06/07/2013 9:20 AM EST Hx of preeclampsia, prior , currently , third trimester documented in this encounter Results * U24 Hrs and Volume (06/07/2013 9:20 AM EST) Hours Collected 24 hour(s) CERNER MILLENNIUM Total Volume 1900 mL CERNER MILLENNIUM Urine specimen (specimen) 06/07/2013 9:20 AM EST 06/07/2013 3:18 PM EST Narrative Resulting Agency Comment Spec In Lab Radha Soliman MD CHEMISTRY ORDERABLES Performing Organization Address [facility] Co de Phone Number CERNER MILLENNIUM * Protein, urine, 24 hour (06/07/2013 9:20 AM EST) Protein Concentration, U24 6 <=80 mg/dL CERNER MILLENNIUM Protein, 24 Hour Urine 0.11 <=0.15 gm/24hr CERNER MILLENNIUM Urine specimen (specimen) 06/07/2013 9:20 AM EST 06/07/2013 3:18 PM EST Narrative Resulting Agency Comment Spec In Lab Radha Soliman MD URINE ORDERABLES Performing Organization Address City/State/[facility] Co de Phone Number CERNER COURTNEYENNIUM documented in this encounter Visit Diagnoses Diagnosis Hx of preeclampsia, prior , currently , third trimester documented in this encounter Care Teams Hide Buffer Relationship Specialty Start Date End Date Domonique Sweeney APRN [facility] [address] [place] [address] PCP - General 11/30/12 06/12/18 documented as of this encounter
--- OUTSIDE RECORDS SUMMARY | 2024-06-26 16:46 | XMS_ITS | Encounter Summary ---
[place] [address] Care Team Providers Care Seismic Engineer Name Role Phone Fernando Lomeli MD Primary Care Provider [phone] [phone] Reason for Visit * Reason Comments Hypertension preg. com plicated by preeclampsia on BP medication Encounter Details Date Type Department Care Team (Late st Contact Info) Description 09/14/2010 9:00 AM EDT Follow-Up Obstetrics [place] [phone] Don Vaughan RN Routine follow-up (Primary Dx) Discharge Disposition: Home Social History Tobacco Use Types Packs/Day Years Used Date Smoking Tobacco: Never Assessed Sex and Gender Information Value Date Recorded Sex Assigned at Not on file Gender Identity Not on file Sexual Orientation Not on file documented as of this encounter Last Filed Vital Signs Vital Sign Reading Time Taken Comments Blood Pressure 120/70 09/14/2010 5:57 PM EDT Pulse - - Temperature - - Respiratory Rate - - Oxygen Saturation - - Inhaled Oxygen Concentration - - Weight - - Height - - Body Mass Index - - documented in this encounter Progress Notes * Don Vaughan RN - 09/14/2010 6:12 PM EDT Patient seen today for f/u BP check. Patient is a 14 y.o. G1 now P1 whose was complicatedby severe preeclampsia at 26+ weeks. Patient was admitted from OSH with dx. She was delivered on 07/29/10 for nonreassuring status via primary c/s. On discharge from the hospital patient was on Labetalol 200mg BID and Nifedipine XL 30mg BID. Today the patient reports feeling well and is without complaints. Patient's BP today was 120/70. She reports her baby is doing well in the NICU. Dr. Jorgensen had seen the patient on 09/07 and had discontinued her Labetalol and decreased her Nifedipine XL to QD. I discussed patient with Dr. Jorgensen and decision was made to stop the Nifidpine. Patient was informed. Recommendation was for f/u by PCP. Patient will call with any concerns. documented in this encounter Plan of Treatment Not on file documented as of this encounter Visit Diagnoses Diagnosis Routine follow-up- Primary documented in this encounter Care Teams Seismic Engineer Relationship Specialty Start Date End Date Fernando Lomeli MD [address] [place] [address] [address] [facility] [place] [address] PCP - General 07/27/10 11/29/12 documented as of this encounter
--- OUTSIDE RECORDS SUMMARY | 2024-06-26 16:46 | XMS_ITS | Encounter Summary ---
[place] [address] Care Team Providers Care Instrumental Teacher Name Role Phone Fernando Lomeli MD Primary Care Provider +1 -[phone] Reason for Visit * Reason Comments Contraception mirena placement-tanvi sing time out done Encounter Details Date Type Department Care Team (Late st Contact Info) Description 09/23/2010 10:00 AM EDT Follow-Up [place] [id number] Simon Glass MD Insertion of IUD (Primary Dx) Discharge Disposition: Home Social History Tobacco Use Types Packs/Day Years Used Date Smoking Tobacco: Never Smokeless Tobacco: Never Alcohol Use Standard Drinks/Week Comments Not Asked 0 (1 standard drink = 0.6 oz pur e alcohol) Sex and Gender Information Value Date Recorded Sex Assigned at Not on file Gender Identity Not on file Sexual Orientation Not on file documented as of this encounter Last Filed Vital Signs Vital Sign Reading Time Taken Comments Blood Pressure 120/78 09/23/2010 10:01 AM EDT Pulse - - Temperature - - Respiratory Rate - - Oxygen Saturation - - Inhaled Oxygen Concentration - - Weight - - Height - - Body Mass Index - - documented in this encounter Progress Notes * Simon Glass MD - 09/23/2010 11:06 AM EDTAddended by: SIMON GLASS on: 09/23/2010 Modules accepted: Orders * Simon Glass MD - 09/23/2010 10:40 AM EDT Counseling: We discussed the risks and benefits [...] length. The patient tolerated the procedure well. documented in this encounter Procedure Notes * Simon Glass MD - 09/23/2010 10:48 AM EDTAssociated Order(s): IUD INSERTION Procedure(s): IUD INSERTION Pre-Procedure Diagnose(s): Insertion of IUD Post-Procedure Diagnose(s): Encounter for insertion or removal of intrauterine contraceptive device Counseling: We discussed the risks and benefits [...] tooth tenaculum. The uterus was sounded to 9 cm. The IUD was appropriately adjusted, and then inserted through the internal os into the uterus. The fundus was gently felt, the IUD slightly retracted, and the introducer was pulled back over the stylette. The strings were clipped to 4 cm of length. The patient tolerated the procedure well. documented in this encounter Plan of Treatment Not on file documented as of this encounter Procedures Procedure Name Priority Date/Time Associated Diagnosis Comments IUD INSERTION Routine 09/23/2010 10:49 AM EDT Insertion of IUD IUD INSERTION Routine 09/23/2010 10:49 AM EDT Insertion of IUD IUD INSERTION Routine 09/23/2010 10:49 AM EDT Insertion of IUD POCT URINE Routine 09/23/2010 Insertion of IUD documented in this encounter Results * IUD INSERTION (09/23/2010 10:49 AM EDT) Narrative Simon Glass MD - 09/23/2010 10:49 AM EDT Counseling: ?? We discussed the risks and benefits of the IUD. ??There may be a slight risk of infection at the time of insertion. ??Should she contract a sexually transmitted infection, it could progress into a severe pelvic infection. ?? We also discussed the small risk of IUD migration into the uterine wall or through the uterus into the abdominal cavity and then requiring surgery for removal. ??I explained that the strings will need to be checked after her first menses, as there is a small risk of expulsion. ?? We discussed the need to use condoms should she or her partner have new sexually partners. ??I explained that with the Mirena IUD, many women experience irregular menstrual spotting, most have lightening of their menses, and 20% develop amenorrhea. ??Should she miss a menses, I advised her to immediately obtain a test. ??If it is positive, there is a high likelihood it is a tubal as the IUD is much better at preventing intrauterine than tubal pregnancies. ??If the test is positive, she should call us immediately. ??If the test is negative, then there is no need for further testing, as she is not at risk. ?? Procedure: ?? After deciding to proceed with the procedure, the patient was identified and a time out was held. ??IUD insertion: ??Bimanual exam was performed. ??A sterile speculum was placed into the vagina. ??The cervix was cleansed with Betadine. ??The anterior lip was grasped with a single tooth tenaculum. The uterus was sounded to 9 cm. ??The IUD was appropriately adjusted, and then inserted through the internal os into the uterus. ??The fundus was gently felt, the IUD slightly retracted, and the introducer was pulled back over the stylette. ??The strings were clipped to 4 cm of length. ??The patient tolerated the procedure well. Procedure Note Simon Glass MD - 09/23/2010 10:48 AM EDT Counseling: We discussed the risks and benefits of the IUD. There may be a slightrisk of infection at the time of insertion. Should she contract asexually transmitted infection, it could progress into a severe pelvicinfection. We also discussed the small risk of IUD migration into theuterine wall or through the uterus into the abdominal cavity and thenrequiring surgery for removal. I explained that the strings will need gladis checked after her first menses, as there is a small risk of expulsion.We discussed the need to use condoms should she or her partner have newsexually partners. I explained that with the Mirena IUD, many womenexperience irregular menstrual spotting, most have lightening of theirmenses, and 20% develop amenorrhea. Should she miss a menses, I advisedher to immediately obtain a test. If it is positive, there is ahigh likelihood it is a tubal as the IUD is much better atpreventing intrauterine than tubal pregnancies. If the test ispositive, she should call us immediately. If the test isnegative, then there is no need for further testing, as she is not atrisk. Procedure: After deciding to proceed with the procedure, the patient was identifiedand a time out was held. IUD insertion: Bimanual exam was performed. Asterile speculum was placed into the vagina. The cervix was cleansed withBetadine. The anterior lip was grasped with a single tooth tenaculum. Theuterus was sounded to 9 cm. The IUD was appropriately adjusted, and theninserted through the internal os into the uterus. The fundus was gentlyfelt, the IUD slightly retracted, and the introducer was pulled back overthe stylette. The strings were clipped to 4 cm of length. The patienttolerated the procedure well. Simon Glass MD OB GYNE ORDERABLES * POCT urine (09/23/2010) POC Urine HCG negative Negative - Negative POC Control Internal Controls Acceptable Simon Glass MD POINT OF CARE TEST O RDERABLES documented in this encounter Visit Diagnoses Diagnosis Insertion of IUD- Primary Insertion of intrauterine contraceptive device documented in this encounter Care Teams Instrumental Teacher Relationship Specialty Start Date End Date Fernando Lomeli MD [address] [place] [address] PCP - General 07/27/10 11/29/12 documented as of this encounter
--- OUTSIDE RECORDS SUMMARY | 2024-06-26 16:46 | XMS_ITS | Encounter Summary ---
[place] [address] Care Team Providers Care Instructor Flying Name Role Phone Zahra Domonique Kim APRN Primary Care Provider [phone]- [phone] Reason for Visit * Reason Comments Routine Visit Pre-Eclampsia Encounter Details Date Type Department Care Team (Latest Contact Info) Description 05/08/2013 11:00 AM EST Routine Obstetrics [place] [address] Georgia Sarmiento MD [facility] [address] OBSTETRICS [place] [address] GA: 27w1d Discharge Disposition: Home Social History Tobacco Use [...] Sign Reading Time Taken Comments Blood Pressure 128/80 05/08/2013 12:20 PM EST Pulse - - Temperature - - Respiratory Rate - - Oxygen Saturation - - Inhaled Oxygen Concentration - - Weight 77.4 kg (170 lb 11.2 oz) 013 11:52 AM EST Height - - Body Mass Index 29.3 12/17/2012 2:37 PM EDT documented in this encounter Progress Notes * Georgia Sarmiento MD - 05/08/2013 12:27 PM EST Here for complaint of RUQ pain and headache. No edema or sctotomata. Has good movement Urine dip neg Abdomen nontender FHR present No evidence for preeclampsia but will send labs for further confirmation Keep previous appt. documented in this encounter Miscellaneous Notes * Addendum Note - Elizabet Jeronimo - 05/08/2013 12:37 PM ESTAddended by: ELIZABET JERONIMO on: 05/08/2013 12:37 PM Modules accepted: Orders documented in this encounter Plan of Treatment Not on file documented as of this encounter Procedures Procedure Name Priority Date/Time Associated Diagnosis Comments DIFFERENTIAL, AUTOMATED Routine 05/08/20 13 12:43 PM EST CREATININE Routine 05/08/2013 12:43 PM EST Hx of preeclampsia, prior , currently CBC (WITH DIFF) Routine 05/08/2013 12:43 PM EST Hx of preeclampsia, prior , currently ASPARTATE AMINOTRANSFERASE Routine 05/08/2013 12:43 PM EST Hx of preeclampsia, prior , currently documented in this encounter Results * (ABNORMAL) Differential, Automated (05/08/2013 12:43 PM EST) Neutrophil % 80.5(H) 34.0 - 71.0 % CERNER MILLENNIUM Neutrophil Absolute 10.84(H) 1.50 - 6.30 x10(3)/mc L CERNER MILLENNIUM Lymph % 13.6(L) 19.0 - 53.0 % CERNER MILLENNIUM Lymphocytes Abs 1.8 1.0 - 3.6 x10(3)/mc L CERNER MILLENNIUM Monocyte % 4.3 4.0 - 13.0 % CERNER MILLENNIUM Monocyte Abs 0.6 0.2 - 1.0 x10(3)/mc L CERNER MILLENNIUM Eos % 0.7 0.0 - 7.0 % CERNER MILLENNIUM Eosinophils Abs 0.1 0.0 - 0.5 x10(3)/mc L CERNER MILLENNIUM Basophil % 0.2 0.0 - [...] performed. Immature Gran Absolute 0.10(H) 0.00 - 0.05 x10(3)/mc L CERNER MILLENNIUM Blood specimen (specimen) 05/08/2013 12:43 PM EST 05/08/2013 12:47 PM EST Georgia Sarmiento MD HEMATOLOGY ORDERABLE S CERNER COURTNEYENNIUM * (ABNORMAL) CBC (with Diff) (05/08/2013 12:43 PM EST) White Blood Cell 13.5(H) 4.0 - 10.0 x10(3)/mc L CERNER MILLENNIUM Red Blood Cell 3.57(L) 3.93 - 5.22 x10(6)/mc L CERNER MILLENNIUM Hemoglobin 10.9(L) 11.2 - 15.7 gm/dL CERNER MILLENNIUM Hematocrit 32.1(L) 34.0 - 45.0 % CERNER MILLENNIUM Mean Cell Volume 89.9 79.0 - 94.0 fL CERNER MILLENNIUM Mean Cell Hemoglobin 30.5 26.6 - 32.2 pg CERNER MILLENNIUM Mean Cell Hemoglobin Concentration 34.0 32.0 - 36.5 gm/dL CERNER MILLENNIUM Platelet 241 145 - 370 x10(3)/mc L CERNER MILLENNIUM RDW Standard Deviation 44.6 35.0 - 46.0 fL CERNER MILLENNIUM RDW coefficient of variation 13.7 10.9 - 14.4 % CERNER MILLENNIUM Mean Platelet Volume 10.7 9.0 - 12.0 fL CERNER MILLENNIUM Blood specimen (specimen) 05/08/2013 12:43 PM EST 05/08/2013 12:47 PM EST Narrative Resulting Agency Comment Spec In Lab Georgia Sarmiento MD HEMATOLOGY ORDERABLE S Performing Organization Address [facility] Co de Phone Number MCKENZIE ELLISIUM * Creatinine (05/08/2013 12:43 PM EST) Creatinine 0.73 0.70 - 1.20 mg/dL CERNER MILLENNIUM Comment: Please note that the pediatric reference intervals supplied above were [place] validated [place] [facility] Results from pediatric patients should be interpreted [...] internet browser. http://www.nkdep.nih.gov/lab-evaluation.shtml http://www.kidney.org/professionals/ Blood specimen (specimen) 05/08/2013 12:43 PM EST 05/08/2013 12:47 PM EST Narrative Resulting Agency Comment Spec In Lab Georgia Sarmiento MD CHEMISTRY ORDERABLES Performing Organization Address [facility] Co de Phone Number MCKENZIE RUSH * Aspartate Aminotransferase (05/08/2013 12:43 PM EST) Aspartate Aminotransferase 10 5 - 30 unit/L [facility] Blood specimen (specimen) 05/08/2013 12:43 PM EST 05/08/2013 12:47 PM EST Narrative Resulting Agency Comment Spec In Lab Georgia Sarmiento MD CHEMISTRY ORDERABLES [facility] documented in this encounter Visit Diagnoses Diagnosis Hx of preeclampsia, prior , currently - Primary with other poor obstetric history documented in this encounter Care Teams Instructor Flying Relationship Specialty Start Date End Date Domonique Sweeney APRN [facility] [address] [place] [address] PCP - General 11/30/12 06/12/18 documented as of this encounter
--- OUTSIDE RECORDS SUMMARY | 2024-06-26 16:46 | XMS_ITS | Encounter Summary ---
[place] [address] Care Team Providers Care Regrinder Operator Name Role Phone Domonique Sweeney APRN Primary Care Provider +1- [phone] Encounter Details Date Type Department Care Team (Latest Contact Info) Description 01/23/2013 2:24 PM EDT - 01/23/2013 3:02 PM EDT Hospital [place] [phone] Hx of preeclampsia, prior , currently ; Previous delivery affecting Social History Tobacco Use Types Packs/Day Years [...] Priority Date/Time Associated Diagnosis Comments US OB NUCHAL TRANSLUCENCY Routine 01/23/2013 2:50 PM EDT Hx of preeclampsia, prior , currently Previous delivery affecting documented in this encounter Results * US OB nuchal translucency (01/23/2013 2:50 PM EDT) Anatomical Region Laterality Modality Pelvis, Abdomen Ultrasound 01/23/2013 2:50 PM EDT Narrative 01/23/2013 3:29 PM EDT ?OBSTETRICS REPORT ? (Signed Final 01/23/2013 03:29 pm) Patient Info ID: ? [id number] ? : ??[birth year] (17 yrs) Name: ? SHAWN PEÑALOZA ? Visit Date: 01/23/2013 02:47 pm ? CONNIE Performed By Performed By: ?Tami Shine RDMS Attending: ? Jameel MAGUIRE, Jaz Alvarado Referred By: ? JAZ WYNN MD OB History BMI: ?27.29 Service(s) Provided UNT - Nuchal Translucency - First Trimester ? [address] Screening - [id number] Indications screening MFM TO READ Evaluation Num Of Fetuses: ?1 Gest. Sac: ? Visualized Heart Rate: ??163 ?bpm Cardiac Activity: ??Observed, normal rhythm Presentation: ?Variable Placenta: ?Too early to evaluate Amniotic Fluid GABINO FV: ?Too early to evaluate -------- Biometry -------- CRL: ?60.4 ??mm ?G. Age: ?? 12w 4d ?TYE: ?? 08/03/13 NT: ?1.6 ??mm Gestational Age Best: ?12w 1d ?? Det. By: ??U/S C R L ?TYE: ?? 08/06/13 ? (12/25/12) Cervix Uterus Adnexa Left Ovary: ?Visualized Right Ovary: ?? Visualized Impression 1st Trimester NT Summary Single living intrauterine with a gestational age of 12w 1d based on LMP. The crown rump length corresponds to a gestational age of 12w 4d. Nuchal translucency examination was performed. I ??viewed the images and agree with the above interpretation. Thank you for allowing us to participate in the care of SHAWN ROSALES. Please do not hesitate to call if you have any questions. ?Jaz Wynn MD Electronically Signed Final Report ?? 01/23/2013 03:29 pm Procedure Note Jaz Wynn MD - 01/23/2013 OBSTETRICS REPORT (Signed Final 01/23/2013 03:29 pm) Patient Info ID: [id number] : [id number] (17 yrs) Name: SHAWN PEÑALOZA Visit Date: 01/23/2013 02:47 pm CONNIE Performed By Performed By: Tmai Shine RDMS Attending: Jaz Wynn MD Referred By: JAZ WYNN MD OB History BMI: 27.29 Service(s) Provided UNT - Nuchal Translucency - First Trimester [address]25 Screening - [id number] Indications screening MFM TO READ Evaluation Num Of Fetuses: 1 Gest. Sac: Visualized Heart Rate: 163 bpm Cardiac Activity: Observed, normal rhythm Presentation: Variable Placenta: Too early to evaluate Amniotic Fluid GABINO FV: Too early to evaluate -------- Biometry -------- CRL: 60.4 mm G. Age: 12w 4d TYE: 08/03/13 NT: 1.6 mm Gestational Age Best: 12w 1d Det. By: U/S C R L TYE: 08/06/13 (12/25/12) Cervix Uterus Adnexa Left Ovary: Visualized Right Ovary: Visualized Impression 1st Trimester NT Summary Single living intrauterine with a gestational age of 12w 1d based on LMP. The crown rump length corresponds to a gestational age of 12w 4d. Nuchal translucency examination was performed. I viewed the images and agree with the above interpretation. Thank you for allowing us to participate in the care of SHAWN ROSALES. Please do not hesitate to call if you have any questions. Jaz Wynn MD Electronically Signed Final Report 01/23/2013 03:29 pm E Almaz Carreon MD IMG US OB ORDERAB LES documented in this encounter Visit Diagnoses Diagnosis Hx of preeclampsia, prior , currently with other poor obstetric history Previous delivery affecting Previous delivery, unspecified as to episode of care or not applicable documented in this encounter Care Teams Regrinder Operator Relationship Specialty Start Date End Date Domonique Sweeney, GERTRUDIS [facility] [address] [place] [address] PCP - General 11/30/12 06/12/18 documented as of this encounter
--- OUTSIDE RECORDS SUMMARY | 2024-06-26 16:46 | XMS_ITS | Encounter Summary ---
[place] [address] Care Team Providers Care Machine Ii Cutter Name Role Phone ZahraRobertofelisa Kim APRN Primary Care Provider +1- [phone] Encounter Details Date Type Department Care Team (Late st Contact Info) Description 06/06/2013 Orders Only Obstetrics [place] [address] Haily Barfield MD [facility] [address] OBSTETRICS & [place] [address] Hx of preeclampsia, prior , currently , third trimester Social History Tobacco Use Types Packs/Day Years [...] documented as of this encounter Results * Protein, urine, 24 hour (06/07/2013 9:20 AM EST) Protein Concentration, U24 6 <=80 mg/dL CERNER MILLENNIUM Protein, 24 Hour Urine 0.11 <=0.15 gm/24hr CERNER MILLENNIUM Urine specimen (specimen) 06/07/2013 9:20 AM EST 06/07/2013 3:18 PM EST Narrative Resulting Agency Comment Spec In Lab Radha Soliman MD URINE ORDERABLES MCKENZIE RUSH documented in this encounter Visit Diagnoses Diagnosis Hx of preeclampsia, prior , currently , third trimester documented in this encounter Care Teams Machine Ii Cutter Relationship Specialty Start Date End Date Domonique Sweeney, GERTRUDIS [facility] [address] [place] [address] PCP - General 11/30/12 06/12/18 documented as of this encounter
--- OUTSIDE RECORDS SUMMARY | 2024-06-26 16:46 | XMS_ITS | Encounter Summary ---
[place] [address] Care Team Providers Care Double Surface Operator Name Role Phone DevynsamyRobertofelisa Kim APRN Primary Care Provider +1- [phone] Reason for Visit * Reason Comments Routine Visit Encounter Details Date Type Department Care Team (Late st Contact Info) Description 03/08/2013 2:00 PM EDT Routine Obstetrics [place] [phone] CLINIC, DR ELHAM Jorgensen, Jaz Sahu MD [facility] OBSTETRICS [place] [address] GA: 18w3d Discharge Disposition: Home Social History Tobacco Use [...] Sign Reading Time Taken Comments Blood Pressure 140/80 03/08/2013 2:13 PM EDT Pulse - - Temperature - - Respiratory Rate - - Oxygen Saturation - - Inhaled Oxygen Concentration - - Weight 71.3 kg (157 lb 1.6 oz) 03/08/2013 2:13 P M EDT Height - - Body Mass Index 26.97 12/17/2012 2:37 PM EDT documented in this encounter Progress Notes * Jaz Jorgensen MD - 03/08/2013 2:52 PM EDT FM felt, no LOF, no bleeding or delbert. US today limited heart views sent back to radiology. Repeat BP 128/82. No PEC's sx's. 2nd blood draw for aneuploidy screening today. F/u 4 weeks. documented in this encounter Miscellaneous Notes * Miscellaneous - Provider, Scanning - 02/13/2014 8:53 AM EDT documented in this encounter Plan of Treatment Not on file documented as of this encounter Procedures Procedure Name Priority Date/Time Associated Diagnosis Comments INTEGRATED SCREENING 2 Routine 03/08/2013 3:55 PM EDT Genetic screening documented in this encounter Results * Integrated Screening 2 (03/08/2013 3:55 PM EDT) [facility] Intergrated Screening Part 2 ([place]) Screen Negative [facility] Comment: Please see scanned report in Chart Review under the Non-DH Laboratory Heading. Test performed by [facility], [address] [address] Blood specimen (specimen) 03/08/2013 3:55 PM EDT 03/11/2013 8:37 AM EDT Narrative Resulting Agency Comment Spec In Lab Jaz Jorgensen MD LAB SEND OUT ORDER [facility] documented in this encounter Visit Diagnoses Diagnosis Hx of preeclampsia, prior , currently with other poor obstetric history Unspecified high-risk Genetic screening Other genetic screening documented in this encounter Care Teams Double Surface Operator Relationship Specialty Start Date End Date Domonique Sweeney APRN [facility] [address] [place] [address] PCP - General 11/30/12 06/12/18 documented as of this encounter
--- OUTSIDE RECORDS SUMMARY | 2024-06-26 16:46 | XMS_ITS | Encounter Summary ---
[place] [address] Care Team Providers Care Judicial Clerk Name Role Phone Zahra Domonique Kim APRN Primary Care Provider +1- [phone] Encounter Details Date Type Department Care Team (Late st Contact Info) Description 06/09/2013 Telephone Obstetrics [place] [phone] Jovany Serna MD Social History Tobacco Use [...] Telephone Encounter - Jovany Serna MD - 06/09/2013 7:22 PM EST Patient is a 17 year old at 31 +5/7 wks w/ complicated by history of preeclampsia and prior delivery at 28 wks. This has been complicated by gestational hypertension up to the 140s/90s with negative 24 hour urine protein 110mg on 06/07 (2 days ago). The patient calls with complaint of low back pain and irregular contractions 2- 3x/hr as well as headache which is ~5/10 intensity and has been constant and unchanged over the past several weeks. She has a home BP cuff and checked her BP at home and it was 154/91 (normally ranging 140s/80s-90s). Shedenies vision change or RUQ pain. Due to severity of road conditions currently and patient living >1 hour away, patient instructedto lay in bed x30 minutes and repeat BP and monitor symptoms; will reassess BP and symptoms to determine if patient needs to come in for evaluation. Repeat BP 30 minutes later while on bedrest was 152/91. Patient advised to drive carefully and comein for evaluation. Charge nurse aware. documented in this encounter Plan of Treatment Not on file documented as of this encounter Visit Diagnoses Not on filedocumented in this encounter Care Teams Judicial Clerk Relationship Specialty Start Date End Date Domonique Sweeney APRN [facility] [address] [place] [address] PCP - General 11/30/12 06/12/18 documented as of this encounter
--- OUTSIDE RECORDS SUMMARY | 2024-06-26 16:46 | XMS_ITS | Encounter Summary ---
[facility] [place] [address] Care Team Providers Care Secondary Social Studies Teacher Name Role Phone ZahraRaquelDomoniquemichelle Kim APRN Primary Care Provider +1- [phone] Reason for Visit * Reason Comments Routine Visit Encounter Details Date Type Department Care Team (Latest Contact Info) Description 06/07/2013 1:15 PM EST Routine Obstetrics [place] [address] Sohail Carreon MD [facility] OBSTETRICS [place] [address] GA: 31w3d Discharge Disposition: Home Social History Tobacco Use [...] Sign Reading Time Taken Comments Blood Pressure 127/74 06/07/2013 5:10 PM EST Pulse - - Temperature - - Respiratory Rate - - Oxygen Saturation - - Inhaled Oxygen Concentration - - Weight 80.8 kg (178 lb 3.2 oz) 06/07/2013 1:07 P M EST Height - - Body Mass Index 30.59 12/17/2012 2:37 PM EDT documented in this encounter Progress Notes * Sohail Carreon MD - 06/07/2013 1:39 PM EST Patient has multiple complaints, including headache and dizziness, decreased movement. Reactive NST and normal repeat BP. Is turning in 24 hour urine today. Will do twice weekly NSTs primarily due to patient anxiety, and also rising BP. * Sindhu Robert - 06/07/2013 1:07 PM EST Pt's complains of constant headaches, dizzy, not feeling well at all. Was in BP on Monday night. documented in this encounter Plan of Treatment Not on file documented as of this encounter Visit Diagnoses Diagnosis Previous delivery affecting Previous delivery, unspecified as to episode of care or not applicable Hx of preeclampsia, prior , currently , third trimester documented in this encounter Care Teams Secondary Social Studies Teacher Relationship Specialty Start Date End Date Domonique Sweeney APRN [facility] [address] [place] [address] PCP - General 11/30/12 06/12/18 documented as of this encounter
--- OUTSIDE RECORDS SUMMARY | 2024-06-26 16:46 | XMS_ITS | Encounter Summary ---
[place] [address] Care Team Providers Care Boat Dock Operator Name Role Phone Domonique Sweeney Judy CABA Primary Care Provider +1- [phone] Reason for Visit * Reason Comments Non-stress Test Encounter Details Date Type Department Care Team (Latest Contact Info) Description 06/11/2013 11:00 AM EST Routine Obstetrics [place] [phone] Don Vaughan RN Pschirrer, E Rebecca, MD [facility] [address] OBSTETRICS [place] [address] Vaishnavi Watson RN GA: 32w0d Discharge Disposition: Home Social History Tobacco Use [...] Sign Reading Time Taken Comments Blood Pressure 112/76 06/11/2013 10:48 AM EST Pulse - - Temperature - - Respiratory Rate - - Oxygen Saturation - - Inhaled Oxygen Concentration - - Weight 81.4 kg (179 lb 8 oz) 06/11/2013 10:48 AM EST Height - - Body Mass Index 30.81 12/17/2012 2:37 PM EDT documented in this encounter Progress Notes * Severo Carreon MD - 06/11/2013 12:20 PM EST I personally reviewed the FH R tracing and documented the interpretation. Severo CARREON MD * Vaishnavi Watson RN - 06/11/2013 10:47 AM EST Shawn comes to 5 for her scheduled NST. She states that this morning her BP was 140/80, and she felt like she had a headache, had malaise and was shaky. She states that this is how she feels when she has hypertension. She had come to the BP on Monday and states that her BP was 150/90. At this time, her BP is 112/76. She is feeling well at this time. She voices concerns over her BP being uncomfortable. Her labs are reviewed with her, and are WDL. Results for SHAWN ROSALES ( ) as of 06/11/2013 10:47 Ref. Range 06/07/2013 09:20 Urine TV (ml) No range found 1900 Hours Collected No range found 24 U24 Prot Conc Latest Range: <=80 mg/dL 6 U24 Prot Calc Latest Range: <=0.15 gm/24hr 0.11 Results for SHAWN ROSALES ( ) as of 06/11/2013 10:47 Ref. Range 06/09/2013 22:45 AST Latest Range: 5-30 unit/L 12 Her NST is reviewed by Dr. Carreon, who states that Shawn is clered to leave. documented in this encounter Plan of Treatment Not on file documented as of this encounter Visit Diagnoses Diagnosis Hx of preeclampsia, prior , currently , third trimester Previous delivery affecting Previous delivery, unspecified as to episode of care or not applicable documented in this encounter Care Teams Boat Dock Operator Relationship Specialty Start Date End Date Domonique Sweeney APRN [facility] [[email or web address] [address] [place] [address] PCP - General 11/30/12 06/12/18 documented as of this encounter
--- OUTSIDE RECORDS SUMMARY | 2024-06-26 16:46 | XMS_ITS | Encounter Summary ---
[place] [address] Care Team Providers Care Neuro Ophthalmologist Name Role Phone Domonique Sweeney APRN Primary Care Provider +1- [phone] Reason for Visit * Reason Onset Date Comments Abdominal Cramping 02/14/2013 Encounter Details Date Type Department Care Team (Late st Contact Info) Description 02/14/2013 Telephone Obstetrics [place] [phone] Isaak Watson RN Abdominal Cramping Social History Tobacco Use Types Packs/Day Years [...] Telephone Encounter - Isaak Watson RN - 02/14/2013 10:13 AM EDT Carol reports feeling some abdominal cramping from her groin out to the sides of her abdomen. Denies leaking, bleeding. Reports feeling well other than a bit nausea without emesis. Carol states that she is able to eat small meals and keep herself hydrated. She states that she is voiding well. States that she felt this a few weeks ago, and the pain and nausea resolved with rest, but she has things to do today and can't do that. Carol is educated by this RN about round ligament pain, and reassured. Encouraged to eat frequent, small, bland meals, and hydrate. Also encouraged to listen to herbody and rest when she feels it is necessary. She was asked to call the clinic with any leaking, bleeding, contractions, or other concerns. Carol agrees with this plan. * Telephone Encounter - Isaak Watson RN - 02/14/2013 10:09 AM EDT Message copied by ISAAK WATSON on MonFeb 14, 2013 10:09 AM ------ Message from: CHUCKY GUERRERO Created: MonFeb 14, 2013 9:41 AM I think this might be that patient that Reinaldo sent you. She just called again. She is 15 weeks withcramping and nausea. She can be reached at [phone] documented in this encounter Plan of Treatment Not on file documented as of this encounter Visit Diagnoses Not on filedocumented in this encounter Care Teams Neuro Ophthalmologist Relationship Specialty Start Date End Date Domonique Sweeney APRN [facility] [address] [place] [address] PCP - General 11/30/12 06/12/18 documented as of this encounter
--- OUTSIDE RECORDS SUMMARY | 2024-06-26 16:46 | XMS_ITS | Encounter Summary ---
[place] [address] Care Team Providers Care Rehabilitator Name Role Phone Zahra Domonique Kim APRN Primary Care Provider +1- [phone] Reason for Visit * Reason Onset Date Comments Other 02/01/2013 pain Encounter Details Date Type Department Care Team (Late st Contact Info) Description 02/01/2013 Telephone Obstetrics [place] [phone] Tess Arias RN Other (pain) Social History Tobacco Use Types Packs/Day Years [...] Telephone Encounter - Tess Arias RN - 02/01/2013 11:29 AM EDT Carol is experiencing some pain in her abdomen. It woke her last night but is a bit better today. No severe cramping, pain is isolated in her back and one spot in her abdomen. She denies bleeding, cramping, vaginal discharge. Ultrasound was done for NT @ 12 weeks and was reassuring. Assessment: unknown etiology of her discomfort. Plan: appt offered for reassurance. Has decided to further monitor at home and will call us if she desires an appointment. documented in this encounter Plan of Treatment Not on file documented as of this encounter Visit Diagnoses Not on filedocumented in this encounter Care Teams Rehabilitator Relationship Specialty Start Date End Date Domonique Sweeney APRN [facility] [address] [place] [address] PCP - General 11/30/12 06/12/18 documented as of this encounter
--- OUTSIDE RECORDS SUMMARY | 2024-06-26 16:46 | XMS_ITS | Encounter Summary ---
[place] [address] Care Team Providers Care Escalation Engineer Name Role Phone Domonique Sweeney APRN Primary Care Provider +1- [phone] Reason for Visit * Reason Onset Date Comments Questions 06/17/2013 Encounter Details Date Type Department Care Team (Late st Contact Info) Description 06/17/2013 Telephone Obstetrics [place] [phone] Vaishnavi Watson, RN Questions Social History Tobacco Use Types Packs/Day Years [...] Telephone Encounter - Vaishnavi Watson RN - 06/17/2013 12:48 PM EST [facility] will be able to see Carol today for an NST. Kristin requests that Carol come before 5PM for her NST. Carol's record is sent and she is contacted. She is provided with the phone number to call. [facility] will fax us the read of her NST. * Telephone Encounter - Vaishnavi Watson RN - 06/17/2013 11:18 AM EST Carol would like to cancel her appointment for today. She is unable to come tomorrow and Monday,and will be coming to on for her NST and . Seeing her inability to come for an NST early in the week, Carol is requesting that we arrange an NST at [facility]. I called their Center, and discussed this possibility with the distribution sales manager, Kristin Sinclair, ULYSSES. Kristin Sinclair, RN [phone] documented in this encounter Plan of Treatment Not on file documented as of this encounter Visit Diagnoses Not on filedocumented in this encounter Care Teams Escalation Engineer Relationship Specialty Start Date End Date Domonique Sweeney APRN [facility] [address] [place] [address] PCP - General 11/30/12 06/12/18 documented as of this encounter
--- OUTSIDE RECORDS SUMMARY | 2024-06-26 16:46 | XMS_ITS | Encounter Summary ---
[place] [address] Care Team Providers Care It Intern Name Role Phone Zahra Domonique Kim APRN Primary Care Provider +1- [phone] Reason for Visit * Reason Comments Routine Visit Encounter Details Date Type Department Care Team (Latest Contact Info) Description 04/05/2013 3:00 PM EDT Routine Obstetrics [place] [phone] Don Boudreaux MD [place]: Discharge Disposition: Home Social History Tobacco Use [...] Sign Reading Time Taken Comments Blood Pressure 120/76 04/05/2013 3:10 PM EDT Pulse - - Temperature - - Respiratory Rate - - Oxygen Saturation - - Inhaled Oxygen Concentration - - Weight 72.8 kg (160 lb 8 oz) 04/05/2013 3:10 PM EDT Height - - Body Mass Index 27.55 12/17/2012 2:37 PM EDT documented in this encounter Progress Notes * Don Boudreaux MD - 04/05/2013 3:36 PM EDT Denies any problems. Had some groin pain that resolved. She reviewed the information and she is interested in trying it. She received her flu shot through work. Due to hx of IUGR will get US at 29 weeks. * Tameka Godwin LPN - 04/05/2013 3:17 PM EDT The OB identification card, Glucose screening directions (if applicable) along with the Guide to [place] was given to the patient. documented in this encounter Plan of Treatment Not on file documented as of this encounter Results * Glucose 1 Hour Post Prandial (05/03/2013 1:03 PM EST) Glucose Post Prandial, 1 Hour 112 mg/dL [facility] Blood specimen (specimen) 05/03/2013 1:03 PM EST 05/03/2013 1:10 PM EST Narrative Resulting Agency Comment Spec In Lab Don Boudreaux MD CHEMISTRY ORDERABLES [facility] * (ABNORMAL) CBC (with Diff) (05/03/2013 1:03 [...] Hemoglobin Concentration 33.3 32.0 - 36.5 gm/dL [facility] Platelet 231 145 - 370 x10(3)/mc L [facility] Standard Deviation 44.6 35.0 - 46.0 fL [facility] RDW coefficient of variation 13.6 10.9 - 14.4 % [facility] Mean Platelet Volume 10.5 9.0 - 12.0 fL [facility] Blood specimen (specimen) 05/03/2013 1:03 PM EST 05/03/2013 1:10 PM EST Narrative Resulting Agency Comment Spec In Lab Don Boudreaux MD HEMATOLOGY ORDERABLE S [facility] documented in this encounter Visit Diagnoses Diagnosis Hx of preeclampsia, prior , currently with other poor obstetric history Previous delivery affecting Previous delivery, unspecified as to episode of care or not applicable Unspecified high-risk documented in this encounter Care Teams It Intern Relationship Specialty Start Date End Date Domonique Sweeney APRN [facility] [address] [place] [address] PCP - General 11/30/12 06/12/18 documented as of this encounter
--- OUTSIDE RECORDS SUMMARY | 2024-06-26 16:46 | XMS_ITS | Encounter Summary ---
[place] [address] Care Team Providers Care Coating Mixer Supervisor Name Role Phone ZahraRobertofelisa Kim APRN Primary Care Provider +1- [phone] Reason for Visit * Reason Comments Routine Visit Encounter Details Date Type Department Care Team (Late st Contact Info) Description 01/23/2013 3:30 PM EDT Routine Obstetrics [place] [phone] CLINIC, DR ELHAM Jorgensen, Jaz Sahu MD [facility] [place] [address] GA: 12w1d Discharge Disposition: Home Social History Tobacco Use [...] Reading Time Taken Comments Blood Pressure 124/78 01/23/2013 3:25 PM EDT Pulse - - Temperature - - Respiratory Rate - - Oxygen Saturation - - Inhaled Oxygen Concentration - - Weight 71.9 kg (158 lb 8 oz) 01/23/2013 3:25 PM EDT Height - - Body Mass Index 27.21 12/17/2012 2:37 PM EDT documented in this encounter Progress Notes * Jaz Jorgensen MD - 01/23/2013 5:06 PM EDT I have seen the patient and reviewed the resident's above history and I agree with the details as written. The assessment and plan were formulated in discussion with me and I agree with them as documented. Feeling better. Some nausea. No emesis. No bleeding. S/p NT US. Morphology US in ~ 5 weeks. * Krista Rocha MD - 01/23/2013 3:50 PM EDT Pt doing well. Nausea improving. No cramping or bleeding. NT today at 1.6mm. Follow-up in 5-6 weekswith morphology scan and IS part 2. documented in this encounter Plan of Treatment Not on file documented as of this encounter Results * Integrated Screening 2 (03/08/2013 3:55 PM EDT) [facility] Intergrated Screening Part 2 (WIH) Screen Negative [facility] Comment: Please see scanned report in Chart Review under the Non-DH Laboratory Heading. Test performed by [facility], [address] [address] Blood specimen (specimen) 03/08/2013 3:55 PM EDT 03/11/2013 8:37 AM EDT Narrative Resulting Agency Comment Spec In Lab Jaz Jorgensen MD LAB SEND OUT ORDER [facility] * US OBS screening morphology (03/08/2013 1:53 PM EDT) Anatomical Region Laterality Modality Pelvis, Abdomen Ultrasound 03/08/2013 1:53 PM EDT Narrative 03/08/2013 3:46 PM EDT ? OBSTETRICS REPORT ? (Signed Final 03/08/2013 03:45 pm) Patient Info ID: ?[id number] ?: ??[birth year] (17 yrs) Name: ?SHAWN PEÑALOZA ?Visit Date: 03/08/2013 01:41 pm ?CONNIE Performed By Performed By: ?Kerline Antonio RDMS Attending: ? Guillermina MAGUIRE, Georgia Martinez Referred By: ? KRISTA ROCHA MD OB History BMI: ?27.29 Service(s) Provided UOBS - Screening Morphology - [id number] ? [id number] Indications r/o anomalies mfm to read Evaluation Num Of Fetuses: ?1 Heart Rate: ??152 ? bpm Cardiac Activity: ??Observed, normal rhythm Presentation: ?Cephalic Placenta: ?Anterior P. Cord ?Within Normal Limits Insertion: Amniotic Fluid GABINO FV: ?Appropriate for gestational age -------- Biometry -------- BPD: ?43.8 ??mm ?G. Age: ?? 19w 2d HC: ?161.7 ??mm ?G. Age: ?? 19w 0d AC: ?140.4 ??mm ?G. Age: ?? 19w 3d FL: ? 28.6 ??mm ?G. Age: ?? 18w 5d HUM: ?27.7 ??mm ?G. Age: ?? 18w 6d CI: ? 73.99 ??% ? 70 - 86 FL/HC: ? 17.7 ??% ? 15.8 - 18 HC/AC: ? 1.15 ?1.07 - 1.29 FL/BPD: ?65.3 ??% FL/AC: ? 20.4 ??% ? 20 - 24 Est. FW: ? 274 ??gm ?0 lb 10 oz Gestational Age U/S Today: ? 19w 1d ?TYE: ?? 08/01/13 Best: ?18w 3d ?? Det. By: ??U/S C R L ?TYE: ?? 08/06/13 ? (12/25/12) ------- Anatomy ------- Cranium: ? Visualized Cavum: ? Visualized Ventricles: ?Visualized Choroid Plexus: ?Visualized Cerebellum: ?Visualized Posterior Fossa: ?? Visualized Nuchal Fold: ? Within Normal Limits Face: ?Nose/Lips seen- WNL Heart: ? 4 chamber view appears normal RVOT: ?Visualized LVOT: ?Visualized Diaphragm: ? Visualized Stomach: ? Visualized Abdomen: ? Within Normal Limits Abdominal Wall: ?Cord Insertion - WNL Cord Vessels: ?3 vessels - WNL Kidneys: ? Within Normal Limits Bladder: ? Visualized Spine: ? Visualized Lower ?Within Normal Limits Extremities: Upper ?Within Normal Limits Extremities: Other: ??Nasal bone: Present Cervix Uterus Adnexa Left Ovary: ?? Visualized Right Ovary: ??Visualized Impression 2nd Trimester - Screening Morphology - Summary Single intrauterine with a gestational age of 18w 3d based on CRL. Composite age based on the current ultrasound alone is 19w 1d. Current growth parameters are consistent indicating normal growth Amniotic fluid volume is Appropriate for gestational age. anatomic evaluation was performed and no structural abnormalities are noted. I ??viewed the images and agree with the above interpretation. Thank you for allowing us to participate in the care of SHAWN ROSALES. Please do not hesitate to call if you have any questions. ? Georgia Sarmiento MD Electronically Signed Final Report ?? 03/08/2013 03:45 pm Procedure Note Georgia Sarmiento MD - 03/08/2013 OBSTETRICS REPORT (Signed Final 03/08/2013 03:45 pm) Patient Info ID: [id number] : [birth year] (17 yrs) Name: SHAWN PEÑALOZA Visit Date: 03/08/2013 01:41 pm CONNIE Performed By Performed By: Kerline Antonio RDMS Attending: Georgia Sarmiento MD Referred By: KRISTA ROCHA MD OB History BMI: 27.29 Service(s) Provided UOBS - Screening Morphology - [id number] Indications r/o anomalies mfm to read Evaluation Num Of Fetuses: 1 Heart Rate: 152 bpm Cardiac Activity: Observed, normal rhythm Presentation: Cephalic Placenta: Anterior P. Cord Within Normal Limits Insertion: Amniotic Fluid GABINO FV: Appropriate for gestational age -------- Biometry -------- BPD: 43.8 mm G. Age: 19w 2d HC: 161.7 mm G. Age: 19w 0d AC: 140.4 mm G. Age: 19w 3d FL: 28.6 mm G. Age: 18w 5d HUM: 27.7 mm G. Age: 18w 6d CI: 73.99 % 70 - 86 FL/HC: 17.7 % 15.8 - 18 HC/AC: 1.15 1.07 - 1.29 FL/BPD: 65.3 % FL/AC: 20.4 % 20 - 24 Est. FW: 274 gm 0 lb 10 oz Gestational Age U/S Today: 19w 1d TYE: 08/01/13 Best: 18w 3d Det. By: U/S C R L TYE: 08/06/13 (12/25/12) ------- Anatomy ------- Cranium: Visualized Cavum: Visualized Ventricles: Visualized Choroid Plexus: Visualized Cerebellum: Visualized Posterior Fossa: Visualized Nuchal Fold: Within Normal Limits Face: Nose/Lips seen- WNL Heart: 4 chamber view appears normal RVOT: Visualized LVOT: Visualized Diaphragm: Visualized Stomach: Visualized Abdomen: Within Normal Limits Abdominal Wall: Cord Insertion - WNL Cord Vessels: 3 vessels - WNL Kidneys: Within Normal Limits Bladder: Visualized Spine: Visualized Lower Within Normal Limits Extremities: Upper Within Normal Limits Extremities: Other: Nasal bone: Present Cervix Uterus Adnexa Left Ovary: Visualized Right Ovary: Visualized Impression 2nd Trimester - Screening Morphology - Summary Single intrauterine with a gestational age of 18w 3d based on CRL. Composite age based on the current ultrasound alone is 19w 1d. Current growth parameters are consistent indicating normal growth Amniotic fluid volume is Appropriate for gestational age. anatomic evaluation was performed and no structural abnormalities are noted. I viewed the images and agree with the above interpretation. Thank you for allowing us to participate in the care of SHAWN JH CONNIE. Please do not hesitate to call if you have any questions. Georgia Sarmiento MD Electronically Signed Final Report 03/08/2013 03:45 pm Jaz Jorgensen MD IMG US OB ORDERABL ES documented in this encounter Visit Diagnoses Diagnosis Genetic screening- Primary Other genetic screening Previous delivery affecting Previous delivery, unspecified as to episode of care or not applicable Genetic screening Other genetic screening documented in this encounter Care Teams Coating Mixer Supervisor Relationship Specialty Start Date End Date Domonique Sweeney APRN [facility] [address] [place] [place] [address] PCP - General 11/30/12 06/12/18 documented as of this encounter
--- OUTSIDE RECORDS SUMMARY | 2024-06-26 16:46 | XMS_ITS | Encounter Summary ---
[place] [address] Care Team Providers Care Engineering Technician Parking Name Role Phone Zahra Domonique Kim APRN Primary Care Provider +1- [phone] Reason for Visit * Reason Comments Routine Visit Encounter Details Date Type Department Care Team (Latest Contact Info) Description 05/17/2013 1:30 PM EST Routine Obstetrics [place] [phone] Don Boudreaux MD GA: 28w3d Discharge Disposition: Home Social History Tobacco Use [...] Sign Reading Time Taken Comments Blood Pressure 132/74 05/17/2013 1:16 PM EST Pulse - - Temperature - - Respiratory Rate - - Oxygen Saturation - - Inhaled Oxygen Concentration - - Weight 77.9 kg (171 lb 12.8 oz) 05/17/2013 1:16 PM EST Height - - Body Mass Index 29.49 12/17/2012 2:37 PM EDT documented in this encounter Progress Notes * Don Boudreaux MD - 05/17/2013 1:22 PM EST Feeling well, good FM. Has home BP cuff, will check BP daily and call if elevated. F/U in 2 weeks with US documented in this encounter Plan of Treatment Not on file documented as of this encounter Visit Diagnoses Diagnosis Hx of preeclampsia, prior , currently with other poor obstetric history Previous delivery affecting Previous delivery, unspecified as to episode of care or not applicable documented in this encounter Care Teams Engineering Technician Parking Relationship Specialty Start Date End Date Domonique Sweeney APRN [facility] [address] [place] [address] PCP - General 11/30/12 06/12/18 documented as of this encounter
--- OUTSIDE RECORDS SUMMARY | 2024-06-26 16:46 | XMS_ITS | Encounter Summary ---
[place] [address] Care Team Providers Care Senior Business Intelligence Analyst Name Role Phone Zahra Domonique Kim APRN Primary Care Provider +1- [phone] Reason for Visit * Reason Comments Routine Visit Encounter Details Date Type Department Care Team (Latest Contact Info) Description 06/14/2013 4:15 PM EST Routine Obstetrics [place] [phone] Don Boudreaux MD GA: 32w3d Discharge Disposition: Home Social History Tobacco Use [...] Sign Reading Time Taken Comments Blood Pressure 124/82 06/14/2013 4:39 PM EST Pulse - - Temperature - - Respiratory Rate - - Oxygen Saturation - - Inhaled Oxygen Concentration - - Weight 83 kg (183 lb) 06/14/2013 4:39 PM EST Height - - Body Mass Index 31.41 12/17/2012 2:37 PM EDT documented in this encounter Progress Notes * Don Boudreaux MD - 06/14/2013 5:23 PM EST BP was 144/82 at home, has had cuff checked. She states she had a few contractions and so was started on NST due to the UC and the contractions. States she is having constant QUESADA. They are not relieved by tylenol. She did not have QUESADA prior to . She has not tried fioricet. I personally reviewed and interpreted this NST. documented in this encounter Plan of Treatment Not on file documented as of this encounter Visit Diagnoses Diagnosis Gestational hypertension, third trimester Previous delivery affecting Previous delivery, unspecified as to episode of care or not applicable Unspecified high-risk documented in this encounter Care Teams Senior Business Intelligence Analyst Relationship Specialty Start Date End Date Domonique Sweeney APRN [facility] [address] [place] [address] PCP - General 11/30/12 06/12/18 documented as of this encounter
--- OUTSIDE RECORDS SUMMARY | 2024-06-26 16:46 | XMS_ITS | Encounter Summary ---
Author Organization [facility] [place] [address] Care Team Providers Care Security Patrol Officer Name Role Phone Domonique Sweeney APRN Primary Care Provider +1- [phone] Encounter Details Date Type Department Care Team (Late st Contact Info) Description 12/24/2012 Orders Only Obstetrics [place] [address] Georgia Sarmiento MD [facility] OBSTETRICS [place] [address] Hx of preeclampsia, prior , currently (Primary Dx) Social History Tobacco Use Types [...] history documented in this encounter Care Teams Security Patrol Officer Relationship Specialty Start Date End Date Domonique Sweeney APRN [facility] [address] [place] [address] PCP - General 11/30/12 06/12/18 documented as of this encounter
--- OUTSIDE RECORDS SUMMARY | 2024-06-26 16:46 | XMS_ITS | Encounter Summary ---
[place] [address] Care Team Providers Care Recovery Room Rn Name Role Phone Domonique Sweeney APRN Primary Care Provider +1- [phone] Encounter Details Date Type Department Care Team (Latest Contact Info) Description 12/25/2012 1:43 PM EDT - 12/25/2012 11:59 PM EDT Hospital Encounter [place] [id number] Hx of preeclampsia, prior , currently Social History Tobacco Use Types Packs/Day Years [...] Priority Date/Time Associated Diagnosis Comments US OB VIABILITY TRANSABDOMINAL Routine 12/25/2012 2:08 PM EDT Hx of preeclampsia, prior , currently documented in this encounter Results * US OBS viability (12/25/2012 2:08 PM EDT) Anatomical Region Laterality Modality Pelvis, Abdomen Ultrasound 12/25/2012 2:08 PM EDT Narrative 12/25/2012 2:29 PM EDT ?OBSTETRICS REPORT ? (Signed Final 12/25/2012 02:29 pm) Patient Info ID: ? [id number] ? : ??[birth year] (17 yrs) Name: ? SHAWN PEÑALOZA ? Visit Date: 12/25/2012 02:06 pm ? JANE Performed By Performed By: ?Zac Genao RDMS Attending: ? Lauri MAGUIRE, E ??Almaz Referred By: ? GEORGIA SARMIENTO MD Service(s) Provided UOBVIB - ??Viability - Transabdominal - [id number] ?[id number] Indications dating and possible NT if EGA [...] to participate in the care of SHAWN LARA. Please do not hesitate to call if you have any questions. ?Severo Carreon MD Electronically Signed Final Report ?? 12/25/2012 02:29 pm Procedure Note Severo Carreon MD - 12/25/2012 OBSTETRICS REPORT (Signed Final 12/25/2012 02:29 pm) Patient Info ID: [id number] : [id number] (17 yrs) Name: SHAWN PEÑALOZA Visit Date: 12/25/2012 02:06 pm JANE Performed By Performed By: Zac Genao RDMS Attending: Severo Carreon MD Referred By: GEORGIA SARMIENTO MD Service(s) Provided UOBVIB - Viability - Transabdominal - [id number] Indications dating and possible NT if EGA [...] Age Best: 8w 0d Det. By: U/S C R L TYE: [...] to participate in the care of SHAWN LARA. Please do not hesitate to call if you have any questions. Severo Carreon MD Electronically Signed Final Report 12/25/2012 02:29 pm Georgia Sarmiento MD IMG US OB ORDERABLES documented in this encounter Visit Diagnoses Diagnosis Hx of preeclampsia, prior , currently with other poor obstetric history documented in this encounter Care Teams Recovery Room Rn Relationship Specialty Start Date End Date Domonique Sweeney APRN [facility] [address] [place] [address] PCP - General 11/30/12 06/12/18 documented as of this encounter
--- OUTSIDE RECORDS SUMMARY | 2024-06-26 16:46 | XMS_ITS | Encounter Summary ---
[place] [address] Care Team Providers Care Plug Assembler Name Role Phone Zahra Domonique Kim APRN Primary Care Provider +1- [phone] Reason for Visit * Reason Comments Routine Visit Encounter Details Date Type Department Care Team (Latest Contact Info) Description 06/24/2013 2:00 PM EST Routine Obstetrics [place] [phone] Don Boudreaux MD GA: [id number] Discharge Disposition: Home Social History Tobacco Use [...] Sign Reading Time Taken Comments Blood Pressure 130/75 06/24/2013 1:08 PM EST Pulse - - Temperature - - Respiratory Rate - - Oxygen Saturation - - Inhaled Oxygen Concentration - - Weight 83 kg (183 lb) 06/24/2013 1:08 PM EST Height - - Body Mass Index 31.41 12/17/2012 2:37 PM EDT documented in this encounter Progress Notes * Don Boudreaux MD - 06/24/2013 1:29 PM EST I reviewed her chart in detail. Marcy has been normotensive for the last few weeks with a negative 24hour urine. At this point we will stop the NST. She is checking her BP at home and it is stable, and she has normal growth on US with a negative 24 hour urine. She will change to weekly visists with NST as she does not currently have evidence of GHTN or preeclampsia. We reviewed signs and symptoms to call for. She will do her urine dip today. I personally reviewed and interpreted this NST. * Macey Bui MD - 06/24/2013 1:17 PM EST Complains of swelling in feet and face. Improvement of headaches. Denies epigastric pain. Occasional hot flashes. Denies any regular contractions, occasional [place]. Good movement. Some increased clear discharge, no gush of fluid. Denies vaginal bleeding. Reports blood pressures in the 140s/70s at home. In setting of normotension, negative 24 hr urine, and urine negative for protein will discontinue NSTs and return to weekly visits Urine Dip at every visit TdAP today NST reactive MACEY BUI MD PGY1 06/24/2013 Pt was seen and discussed with Dr. Don Boudreaux, Attending documented in this encounter Plan of Treatment Not on file documented as of this encounter Visit Diagnoses Diagnosis Gestational hypertension, third trimester documented in this encounter Care Teams Plug Assembler Relationship Specialty Start Date End Date Domonique Sweeney APRN [facility] [address] [place] [address] PCP - General 11/30/12 06/12/18 documented as of this encounter
--- OUTSIDE RECORDS SUMMARY | 2024-06-26 16:46 | XMS_ITS | Encounter Summary ---
[place] [address] Care Team Providers Care Stope Miner Name Role Phone Zahra Domonique Kim APRN Primary Care Provider +1- [phone] Reason for Visit * Reason Onset Date Comments Abdominal Pain 05/08/2013 Encounter Details Date Type Department Care Team (Late st Contact Info) Description 05/08/2013 Telephone Obstetrics [place] [phone] Isaak Watson RN Abdominal Pain Social History Tobacco Use Types Packs/Day Years [...] Telephone Encounter - Isaak Watson RN - 05/08/2013 9:44 AM EST aCrol is calling because she was awoken last night with sharp upper abdominal pains. She states that this morning she has a headache. She denies visual disturbances, contractions, leaking, and bleeding. She reports movement this morning, but he is moving less than he usually does in the morning. She is concerned because this is exactly how my preeclampsia started last time. She is given an 11AM appointment with Dr. Sarmiento. * Telephone Encounter - Isaak Watson RN - 05/08/2013 9:41 AM EST Message copied by ISAAK WATSON on MonMay 08, 2013 9:41 AM ------ Message from: CHUCKY GUERRERO Created: MonMay 08, 2013 8:05 AM Please call, she is having some upper stomach pain and her BP was elevated she said but didn't tellme what it was. She can be reached at [phone] documented in this encounter Plan of Treatment Not on file documented as of this encounter Visit Diagnoses Not on filedocumented in this encounter Care Teams Stope Miner Relationship Specialty Start Date End Date Domonique Sweeney APRN [facility] [address] [place] [address] PCP - General 11/30/12 06/12/18 documented as of this encounter
--- OUTSIDE RECORDS SUMMARY | 2024-06-26 16:46 | XMS_ITS | Encounter Summary ---
Author Organization [facility] [place] [address] Care Team Providers Care Assistant Plant Control Operator Name Role Phone Zahra Domonique Kim APRN Primary Care Provider +1- [phone] Encounter Details Date Type Department Care Team (Latest Contact Info) Description 01/23/2013 3:03 PM EDT - 01/23/2013 11:59 PM EDT [place] [phone] Severo Carreon MD [facility] [place] [address] Discharge Disposition: Home Social History Tobacco Use [...] Priority Date/Time Associated Diagnosis Comments INTEGRATED SCREENING 1 Routine 01/23/2013 3:20 PM EDT documented in this encounter Results * Integrated Screening 1 (01/23/2013 3:20 PM EDT) Intergrated Screening Part 1 (WIH) See Note CERNER MILLENNIUM Comment: Part 1 of the Integrated Screen was drawn. ??For results of the Integrated Screen a second serum sample drawn at 15-21 weeks gestation is required. Test performed by [facility], [address] [address] Blood specimen (specimen) 01/23/2013 3:20 PM EDT 01/24/2013 8:05 AM EDT Narrative Resulting Agency Comment Spec In Lab E Almaz Carreon MD LAB SEND OUT TABBY PALACIOS [facility] Organization Address City/State/[facility] Co de Phone Number [facility] documented in this encounter Visit Diagnoses Not on filedocumented in this encounter Care Teams Assistant Plant Control Operator Relationship Specialty Start Date End Date Domonique Sweeney APRN [facility] [address] [place] [address] PCP - General 11/30/12 06/12/18 documented as of this encounter
--- OUTSIDE RECORDS SUMMARY | 2024-06-26 16:46 | XMS_ITS | Encounter Summary ---
Author Organization [facility] [place] [address] Care Team Providers Care Sequins Stringer Name Role Phone Zahra Domonique Kim APRN Primary Care Provider +1- [phone] Reason for Visit * Reason Comments Pre-Eclampsia BP at home (time 193 0) was 140s/80s, +QUESADA, increased swelling to hands Encounter Details Date Type Department Care Team (Latest Contact Info) Description 06/05/2013 11:19 PM EST - 06/06/2013 1:31 AM EST Hospital Encounter Birthing [place] [address] Radha Soliman MD Discharge Disposition: Home Social History Tobacco [...] Sign Reading Time Taken Comments Blood Pressure 132/69 06/06/2013 12:54 AM EST Pulse 89 06/06/2013 12:54 AM EST Temperature 37.1 ??C (98.8 ??F) 06/05/2013 11:[address] Respiratory Rate 20 06/06/2013 12:54 AM EST Oxygen Saturation - - Inhaled Oxygen Concentration - - Weight - - Height - - Body Mass Index - - documented in this encounter Discharge Instructions * Discharge Instructions* Ander Cueva RN - 06/06/2013 1:31 AM EST [facility] [place] [address] [facility] contact OB doctor [phone] to contact family doctor to contact land leasing information clerk Carol Spears [email or web address] 1:30 AM Following your visit to [facility] Triage Reason for Visit: Chief Complaint Patient presents with ??? Pre-Eclampsia BP at home (time 1930) was 140s/80s, +QUESADA, increased swelling to hands Term Gestation - 37 through 42 weeks [...] your abdomen more than 20 minutes apart [place] Contractions usually are irregular may get less [...] a vaginal exam in your doctor's or land leasing information clerk's office you should not bleed as much as a period You have noticed a marked decrease in your baby's movement refer to your kick count instructions in the Your Journey book Your baby should move at least 10 times in 2 hours You have had any direct trauma to your abdomen such as a car accident, fall, or impact Call your doctor or land leasing information clerk if you have the following symptoms: Headache [...] dehydratio Keep your regularly scheduled doctor or land leasing information clerk appointment Your medications: No current facility-administered medications [...] call your provider at their office number documented in this encounter Medications at Time of Discharge Medication Sig Dispensed Refills Start Date End Date aspirin 81 mg chewable tabletIndications:Hx of preeclampsia, prior , currently Take 81 mg by mouth daily. 30 tablet 3 12/24/2012 09/02/2013 VITS W-CA,FE,FA,<1MG, ( VITAMIN ORAL) 08/03/201008/11 documented as of this encounter Progress Notes * Hany Deutsch - 06/06/2013 1:24 AM EST OB Triage Note 06/06/2013 1:24 AM Carol Spears is a 17 y.o. year old female with an TYE of 08/06/2013, by Ultrasound whois at 31w2d weeks gestation. Chief Complaint: The patient presents for evaluation of potential pre-eclampsia. She has a history of delivery at 28 weeks for severe pre-eclampsia in her last . She reports a headache that has been waxing and waning for the last week. She does not usually get headaches outside of , and called tonight because this headache feels similar to the headache she had in her last . It is occasionally helped with Tylenol, however she has not taken any today. She has also had mildly increased BPs at home (140s/80s). She has noted occasional abdominal pain throughout this , although none currently. She has had LE swelling, and over the past few days swelling in her hands as well. She denies any vision changes. She has had a healthy thus far and has no medical problems outside of . Movement: decreased Contractions: none Leaking: None Bleeding: none Preeclampsia signs and symptoms: see HPI Past Medical History Past Medical History Diagnosis Date ??? Hypertension only with preeclampsia Past Surgical History Past Surgical History Procedure Date ??? section 2010 ??? Appendectomy 2008 OB History OB History Grav Para Term Abortions TAB SAB Ect Mult Living 2 1 1 1 # Outc Date GA Lbr Eliceo/2nd Wgt Sex Del Anes PTL Lv 1 PRE 07/23 28w0d 0.794kg(0ro56bs) M LTCS Spinal No Yes 2 CUR Prior to Admission Medications Prescriptions prior to admission Medication Sig Dispense Refill ??? aspirin 81 mg chewable tablet Take 81 mg by mouth daily. 30 tablet 3 ? ? VITS W-CA,FE,FA,<1MG, ( VITAMIN ORAL) Allergies No Known Allergies Family History No family history on file. Social History Social History Occupational History ??? Not on file. Social History Main Topics ??? Smoking status: Never Smoker ??? Smokeless tobacco: Never Used ??? Alcohol Use: No ??? Drug Use: No ??? Sexually Active: Yes -- Male partner(s) PE Temp: [37.1 ??C (98.8 ??F)] Heart Rate: [89-103] Resp: [18-20] BP: (132-141)/(69-97) SpO2: -- FHR Evaluation: Fetus A: Baseline Rate: 135 bpm Variability: Moderate Accelerations: Present Decels: None Ctx: none Abdomen: Soft, non-tender LE: Trace edema bilaterally, non-tender The following Labs were obtained: Recent Labs Basename 06/06/13 0012 WBC 10.8* HGB 10.6* HCT 30.8* PLATELET 218 Recent Labs Basename 06/06/13 0012 NA -- K -- CL -- CO2 -- BUN -- CREATININE 0.70 MAGNESIUM -- PHOS -- AST 9 Urine dipstick negative for protein. Assessment 17 y.o. year old female with an 08/06/2013, by Ultrasound who is at 31w2d weeks gestation being evaluated for Pre-eclampsia. Labor State: Not in labor. ?? Heart Rate Assessment: Category 1 Plan: Blood pressure in normal range and consistent with BPs in clinic. No protein on urine and labs stable without evidence of HELLP syndrome. Pt will collect a 24 hour urine and follow-up at her regularly scheduled clinic appointment tomorrow. Will take 1g of Tylenol now for headache. Pt will call withany worsening or change in symptoms. HANY DEUTSCH MD 06/06/2013 * Ander Cueva RN - 06/05/2013 11:46 PM EST MD Deutsch given report on pt's arrival. MD to evaluate pt in person. * Ander Cueva RN - 06/05/2013 11:37 PM EST Pt arrived to triage bed with c/o increased blood pressure, headache, and swelling to hands while at home today. Denies any visual disturbances, RUQ abominal pain. +1/+1 pitting edema to lower extremities bilaterally. Absent clonus bilaterally. Denies any flu-like symptoms. Pt denies any contractions, leakage of fluid, vaginal bleeding and stated that she has not felt her baby move much today. Ptprovided urine sample and was placed on EFM. Vitals taken (see flowsheet). Will notify MD [email or web address] mins on EFM. Resting in bed at this time and given 4 oz water. documented in this encounter Plan of Treatment Not on file documented as of this encounter Procedures Procedure Name Priority Date/Time Associated Diagnosis Comments DIFFERENTIAL, AUTOMATED Routine 06/06/20 13 12:12 AM EST CREATININE Routine 06/06/2013 12:12 AM EST CBC (WITH DIFF) Routine 06/06/2013 12:12 AM EST ASPARTATE AMINOTRANSFERASE Routine 06/06/2013 12:12 AM EST POCT URINE DIPSTICK Routine 06/05/2013 1 1:00 PM EST documented in this encounter Results * (ABNORMAL) Differential, Automated (06/06/2013 12:12 AM EST) Neutrophil % 70.4 34.0 - 71.0 % CERNER MILLENNIUM Neutrophil Absolute 7.58(H) 1.50 - 6.30 x10(3)/mc L CERNER MILLENNIUM Lymph % 21.6 19.0 - 53.0 % CERNER MILLENNIUM Lymphocytes Abs 2.3 1.0 - 3.6 x10(3)/mc L CERNER MILLENNIUM Monocyte % 5.6 4.0 - 13.0 % CERNER MILLENNIUM Monocyte Abs 0.6 0.2 - 1.0 x10(3)/mc L CERNER MILLENNIUM Eos % 1.4 0.0 - 7.0 % CERNER MILLENNIUM Eosinophils Abs 0.2 0.0 - 0.5 x10(3)/mc L CERNER MILLENNIUM Basophil % 0.1 0.0 - 2.0 % CERNER MILLENNIUM Baso Absolute 0.0 0.0 - 0.2 x10(3)/mc L CERNER MILLENNIUM Immature Gran % 0.90(H) 0.00 - 0.66 % CERNER MILLENNIUM Comment: Immature granulocytes(IG's)percentage and absolute count will include metamyelocytes, myelocytes, and promyelocytes. Blood smears from CBCs yielding IG's will be scanned manually for concordance. If this scan disagrees with the automated IG or if promyelocytes are noted, a manual differential will be performed. Immature Gran Absolute 0.10(H) 0.00 - 0.05 x10(3)/mc L CERLISBETH MILLENNIUM Blood specimen (specimen) 06/06/2013 12:12 AM EST 06/06/2013 12:18 AM EST Radha Soliman MD HEMATOLOGY ORDERABLE S Performing Organization Address [facility] de Phone Number MCKENZIE RUSH * Creatinine (06/06/2013 12:12 AM EST) Creatinine 0.70 0.70 - 1.20 mg/dL MCKENZIE MILLENNIUM Comment: Please note that the pediatric reference intervals supplied above were not validated at [facility]. Results from pediatric patients [...] internet browser. http://www.nkdep.nih.gov/lab-evaluation.shtml http://www.kidney.org/professionals/ Blood specimen (specimen) 06/06/2013 12:12 AM EST 06/06/2013 12:18 AM EST Narrative Resulting Agency Comment Spec In Lab Radha Soliman MD CHEMISTRY ORDERABLES Performing Organization Address [facility] Co de Phone Number MCKENZIE RUSH * (ABNORMAL) CBC (with Diff) (06/06/2013 12:12 AM EST) White Blood Cell 10.8(H) 4.0 - 10.0 x10(3)/mc L CERNER MILLENNIUM Red Blood Cell 3.44(L) 3.93 - 5.22 x10(6)/mc L CERNER MILLENNIUM Hemoglobin 10.6(L) 11.2 - 15.7 gm/dL CERNER MILLENNIUM Hematocrit 30.8(L) 34.0 - 45.0 % CERNER MILLENNIUM Mean Cell Volume 89.5 79.0 - 94.0 fL CERNER MILLENNIUM Mean Cell Hemoglobin 30.8 26.6 - 32.2 pg CERNER MILLENNIUM Mean Cell Hemoglobin Concentration 34.4 32.0 - 36.5 gm/dL CERNER MILLENNIUM Platelet 218 145 - 370 x10(3)/mc L CERNER MILLENNIUM RDW Standard Deviation 43.7 35.0 - 46.0 fL CERNER MILLENNIUM RDW coefficient of variation 13.5 10.9 - 14.4 % CERNER MILLENNIUM Mean Platelet Volume 10.6 9.0 - 12.0 fL CERNER MILLENNIUM Blood specimen (specimen) 06/06/2013 12:12 AM EST 06/06/2013 12:18 AM EST Narrative Resulting Agency Comment Spec In Lab Radha Soliman MD HEMATOLOGY ORDERABLE S Performing Organization Address [facility] Phone Number [facility] * Aspartate Aminotransferase (06/06/2013 12:12 AM EST) Pathologist [facility] Aspartate Aminotransferase 9 5 - 30 unit/L [facility] MILLENNIUM Blood specimen (specimen) 06/06/2013 12:12 AM EST 06/06/2013 12:18 AM EST Narrative Resulting Agency Comment Spec In Lab Radha Soliman MD CHEMISTRY ORDERABLES Performing Organization Address [facility] Co de Phone Number [facility] * POCT urine dipstick (06/05/2013 11:00 PM EST) POC Sp [place] 1.010 1.002 - 1.030 POC pH, UA 7.0 5.0 - 8.5 POC Leuk, UA negative Negative - Negative POC Nitrite, UA negative Negative - Negative POC Protein, UA negative Negative - Negative mg/dL POC Glucose, UA normal Normal - Normal mg/dL POC Ketone, UA negative Negative - Negative POC Urobil, UA 0.2 0.2 - 1.0 mg/dL POC Bili, UA negative Negative - Negative POC Blood, UA negative Negative - Negative christy/uL Urine specimen (specimen) 06/05/2013 11:00 PM EST Radha Soliman MD POINT OF CARE TEST O RDERABLES documented in this encounter Visit Diagnoses Not on filedocumented in this encounter Administered Medications Inactive Administered Medications - up to 3 most recent administrations Medication Order MAR Action Action Date Dose Rate Site acetaminophen (TYLENOL) tablet 1,000 mg 1,000 mg, Oral, ONCE, 1 dose, On [place] 06/06/13 at 0130, Maximum dose of acetaminophen is 4000 mg from all sources in 24 hours., Routine Given 06/06/2013 1:29 AM EST 1,000 mg documented in this encounter Active and Recently Administered Medications Times are shown in EST. Scheduled Medication Order 06/04/2013 06/05/2013 06/06/2013 acetaminophen (TYLENOL) tablet 1,000 mg (COMPLETED) 1,000 mg, Oral, ONCE, 1 dose, On [place] 06/06/13 at 0130, Maximum dose of acetaminophen is 4000 mg from all sources in 24 hours., Routine 0129 (Given - Provid er: Ander Cueva RN) documented in this encounter Care Teams Sequins Stringer Relationship Specialty Start Date End Date Domonique Sweeney APRN [facility] [address] [place] [address] PCP - General 11/30/12 06/12/18 documented as of this encounter
--- OUTSIDE RECORDS SUMMARY | 2024-06-26 16:46 | XMS_ITS | Encounter Summary ---
[place] [address] Care Team Providers Care Fruit Picker Name Role Phone DevynsamyRobertofelisa Kim APRN Primary Care Provider +1- [phone] Reason for Visit * Reason Comments Routine Visit Encounter Details Date Type Department Care Team (Latest Contact Info) Description 12/25/2012 3:15 PM EDT Routine Obstetrics [place] [id number] Severo Carreon MD [facility] [address] OBSTETRICS [place] [address] GA: 8w0d Discharge Disposition: Home Social History Tobacco Use [...] Sign Reading Time Taken Comments Blood Pressure 114/68 12/25/2012 2:54 PM EDT Pulse - - Temperature - - Respiratory Rate - - Oxygen Saturation - - Inhaled Oxygen Concentration - - Weight 72.4 kg (159 lb 9.6 oz) 12/25/2012 2:54 P M EDT Height - - Body Mass Index 27.4 12/17/2012 2:37 PM EDT documented in this encounter Progress Notes * Severo Carreon MD - 12/25/2012 3:03 PM EDT Dating ultrasound today: 8w0d, TYE 08/06/13. Desires integrated screening. No OB complaints; tolerating low dose asa without issue. No Pap today as less than 21 years. Urine for GC/CT. RTC 4 weeks with NT ultrasound. documented in this encounter Plan of Treatment Not on file documented as of this encounter Procedures Procedure Name Priority Date/Time Associated Diagnosis Comments GC/CHLAMYDIA Routine 12/25/2012 3:37 PM EDT Hx of preeclampsia, prior , currently Previous delivery affecting GC/CHLAM Routine 12/25/2012 3:37 PM EDT Hx of preeclampsia, prior , currently Previous delivery affecting documented in this encounter Results * US OB nuchal translucency (01/23/2013 2:50 PM EDT) Anatomical Region Laterality Modality Pelvis, Abdomen Ultrasound 01/23/2013 2:50 PM EDT Narrative 01/23/2013 3:29 PM EDT ?OBSTETRICS REPORT ? (Signed Final 01/23/2013 03:29 pm) Patient Info ID: ? [id number] ? : [birth year] (17 yrs) Name: ? SHAWN PEÑALOZA ? Visit Date: 01/23/2013 02:47 pm ? CONNIE Performed By Performed By: ?Tami Shine RDMS Attending: ? Jameel MAGUIRE, Jaz Alvarado Referred By: ? JAZ WYNN MD OB History BMI: ?27.29 Service(s) Provided UNT - Nuchal Translucency - First Trimester ? 14862 Screening - [id number] Indications screening MFM TO READ Evaluation Num [...] Final 01/23/2013 03:29 pm) Patient Info ID: [id number] : [birth year] (17 yrs) Name: SHAWN PEÑALOZA Visit Date: 01/23/2013 02:47 pm CONNIE Performed By Performed By: Tami Shine RDMS Attending: Jza Wynn MD Referred By: JZA WYNN MD OB History BMI: 27.29 Service(s) Provided UNT - Nuchal Translucency - First Trimester 12680 Screening - [id number] Indications screening MFM TO READ Evaluation Num [...] Carreon MD IMG US OB ORDERAB LES * GC/Chlam (12/25/2012 3:37 PM EDT) Pathologist [facility] GC Gene Amp Negative Negative [facility] Comment: The only FDA approved specimen types for this assay are cervix, vagina, urethra and urine. ??The sensitivity and specificity of the assay for other specimen types has not been determined. GC Source Urine CERNER MILLENNIUM Chlamydia Gene Amp Negative Negative CERNER MILLENNIUM Comment: The only FDA approved specimen types for this assay are cervix, vagina, urethra and urine. ??The sensitivity and specificity of the assay for other specimen types has not been determined. Chlm Source Urine CERNER COURTNEYENNIUM Specimen of unknown material (specimen) 12/25/2012 3:37 PM EDT 12/25/2012 3:37 PM EDT Narrative Resulting Agency Comment Spec In Lab E Almaz Carreon MD MICROBIOLOGY - NERAL ORDERABLES MCKENZIE RUSH documented in this encounter Visit Diagnoses Diagnosis Hx of preeclampsia, prior , currently - Primary with other poor obstetric history Previous delivery affecting Previous delivery, unspecified as to episode of care or not applicable Hx of preeclampsia, prior , currently with other poor obstetric history Previous delivery affecting Previous delivery, unspecified as to episode of care or not applicable documented in this encounter Care Teams Fruit Picker Relationship Specialty Start Date End Date Domonique Sweeney, DISTRIBUTION DRIVER [facility] [address] [place] [address] PCP - General 11/30/12 06/12/18 documented as of this encounter
--- OUTSIDE RECORDS SUMMARY | 2024-06-26 16:46 | XMS_ITS | Encounter Summary ---
[place] [address] Care Team Providers Care Translator Interpreter Name Role Phone Domonique Sweeney APRN Primary Care Provider +1- [phone] Encounter Details Date Type Department Care Team (Latest Contact Info) Description 03/08/2013 12:43 PM EDT - 03/08/2013 11:59 PM EDT Hospital Encounter [place] [id number] Genetic screening Social History Tobacco Use Types Packs/Day Years [...] Priority Date/Time Associated Diagnosis Comments US OB SCREENING MORPHOLOGY Routine 03/08/2013 1:53 PM EDT Genetic screening documented in this encounter Results * US OBS screening morphology (03/08/2013 1:53 PM EDT) Anatomical Region Laterality Modality Pelvis, Abdomen Ultrasound 03/08/2013 1:53 PM EDT Narrative 03/08/2013 3:46 PM EDT ? OBSTETRICS REPORT ? (Signed Final 03/08/2013 03:45 pm) Patient Info ID: ?[id number] ?: ??[birth year] (17 yrs) Name: ?SHAWN PEÑALOZA ?Visit Date: 03/08/2013 01:41 pm ?CONNIE Performed By Performed By: ?Kerline Antonio RDMS Attending: ? Guillermina MAGUIRE, Georgia Martinez Referred By: ? KEVIN ROCHA MD OB History BMI: ?27.29 Service(s) Provided UOBS - Screening Morphology - [id number] ? 28312 Indications r/o anomalies mfm to read Evaluation [...] Final 03/08/2013 03:45 pm) Patient Info ID: [id number] : [birth year] (17 yrs) Name: SHAWN PEÑALOZA Visit Date: 03/08/2013 01:41 pm CONNIE Performed By Performed By: Kerline Antonio RDMS Attending: Georgia Sarmiento MD Referred By: KEVIN ROHCA MD OB History BMI: 27.29 Service(s) Provided UOBS - Screening Morphology - [id number] 24063 Indications r/o anomalies mfm to read Evaluation [...] 03/08/2013 03:45 pm Jaz Jorgensen MD IMG OB ORDERABL ES documented in this encounter Visit Diagnoses Diagnosis Genetic screening Other genetic screening documented in this encounter Care Teams Translator Interpreter Relationship Specialty Start Date End Date Domonique Sweeney, GERTRUDIS [facility] [address] [place] [address] PCP - General 11/30/12 06/12/18 documented as of this encounter
--- OUTSIDE RECORDS SUMMARY | 2024-06-26 16:46 | XMS_ITS | Encounter Summary ---
Author Organization [facility] [place] [address] Care Team Providers Care Sterile Supervisor Name Role Phone Zahra Domonique Kim APRN Primary Care Provider +1- [phone] Encounter Details Date Type Department Care Team (Latest Contact Info) Description 06/09/2013 10:18 PM EST - 06/09/2013 11:50 PM EST Hospital Encounter [place] [address] Roxanne Galindo MD [facility] OBSTET[place] [address] Gestational hypertension, third trimester; Hx of preeclampsia, prior , currently , [...] Sign Reading Time Taken Comments Blood Pressure 124/66 06/09/2013 10:53 PM EST Pulse 96 06/09/2013 10:53 PM EST Temperature 37.1 ??C (98.8 ??F) 06/09/2013 10:[address] Respiratory Rate 18 06/09/2013 10:22 PM EST Oxygen Saturation 99% 06/09/2013 10:22 PM EST Inhaled Oxygen Concentration - - Weight - - Height - - Body Mass Index - - documented in this encounter Medications at Time of Discharge Medication Sig Dispensed Refills Start Date End Date aspirin 81 mg chewable tabletIndications:Hx of preeclampsia, prior , currently Take 81 mg by mouth daily. 30 tablet 3 12/24/2012 09/02/2013 VITS W-CA,FE,FA,<1MG, ( VITAMIN ORAL) 08/03/201008/11 documented as of this encounter Progress Notes * Roxanne Galindo MD - 06/09/2013 11:48 PM EST 06/09/13 2300 Nonstress Test, Fetus A Baseline Rate 140 bpm Variability 6-25 BPM Accelerations Present Decelerations None Contraction Frequency occasional Nonstress Test Interpretation Reactive <32 week: two 10 bpm accelerations lasting 10 seconds Overall Impression Reassuring for gestational age NST Times NST Start Time 2220 NST Stop Time 2318 I personally reviewed and interpreted this NST. ROXANNE GALINDO MD * Roxanne Galindo MD - 06/09/2013 11:20 PM EST PGY3 OB Triage Note Shawn Spears is a 17 year old with history of LTCS for severe preeclampsia/IUGR at 28 wks in prior . She has been followed closely during this for gestational hypertension with BP 130s-140s/70s-90s. She recently completed a 24 hour urine for protein on 06/07 which was negative (110mg/24 hrs). She has had a chronic headache for the past several weeks which comes/goes and is sometimes associated with spots in her vision. She checks her BP twice daily which has been mainly 140s/80s at home. This evening she checked her BP which was 150/90 and also noted some irregular contractions every ~15 minutes with radiation to her back as well as constant low back pain. She reports active movement, denies bleeding, loss of fluid, or RUQ pain. O: Patient Vitals for the past 8 hrs: BP Temp Temp src Pulse Resp SpO2 06/09/13 2253 124/66 mmHg - - 96 - - 06/09/13 2251 128/83 mmHg - - - - - 06/09/13 2222 147/74 mmHg 37.1 ??C (98.8 ??F) Oral 104 18 99 % (home BP cuff brought with patient and confirms reading 120s/80s) Gen: appears well, in no acute distress Neuro: 2+ biceps, 1+ patellar DTRs, no clonus Cardiac: RRR, S1, S2, no rub/gallop/murmur Pulm: CTAB, no rales/wheeze/rhonchi Abd: soft, symmetric, nontender, gravid Uterus: cephalic by whitney's, nontender Extremities: nontender, no edema FHR Interpretation: baseline 145, mod variability, accels to 170, no decels, total of 2 contractions on 1 hour of monitoring Recent Labs Basename 06/09/13 2245 06/06/13 0012 WBC 9.5 10.8* HGB 10.6* 10.6* HCT 30.8* 30.8* PLATELET 216 218 Results for CONNIE SHAWN [facility] ( ) as of 06/09/2013 23:30 Ref. Range 06/09/2013 22:45 Creatinine Latest Range: 0.70-1.20 mg/dL 0.77 Estimated GFR Latest Range: >=60 >60 AST Latest Range: 5-30 unit/L 12 Results for CONNIE, SHAWN ANN ( ) as of 06/09/2013 23:30 Ref. Range 06/09/2013 22:50 POC Sp [place] Latest Range: 1.002-1.030 1.010 POC pH, UA Latest Range: 5.0-8.5 7.0 POC Protein, UA Latest Range: Negative-Negative mg/dL neg POC Glucose, UA Latest Range: Normal-Normal mg/dL normal POC Ketone, UA Latest Range: Negative-Negative neg POC Bili, UA Latest Range: Negative-Negative neg POC Blood, UA Latest Range: Negative-Negative christy/uL neg POC Leuk, UA Latest Range: Negative-Negative neg POC Nitrite, UA Latest Range: Negative-Negative neg A/P: 17 year old at 31 +5/7 wks gestation with gestational hypertension. BP improved here and remain in mild range. No evidence of HELLP syndrome, proteinuria on urine dip, and urine protein/creatinine ratio of 0.1 suggests 24 hour urine protein <300mg. Will discharge patient to home w/p recautions; f/u for scheduled NST and BP check on 06/11. Patient seen/discussed with Dr. Galindo, attending I saw this patient with Dr. Serna and agree with the above documentation and plan. Patient will follow up in clinic on MondayJune 11. She knows to call if she has a worsening headache, right upper quadrant pain, contractions, vaginal bleeding, leaking fluid, decrease movement. ROXANNE GALINDO MD * Larissa Alfonso RN - 06/09/2013 11:05 PM EST 2300: Pt presented to triage d/t elevated BP check at home. Reports intermittent lower back pain 6/10. Reports persistent occipital headache for past several days, minimal severity at present time. Also with white spot in vision times 2 days, less noticeable today. Trace edema to BLE. Denies RUQ pain or reflux, reflexes normal. Urine dip negative, BP currently WDL. Pt seen by Dr. Serna. Bloodwork and urine sent to lab. 2345: Labwork WDL, Drs. Galindo and Kareem in to speak with pt. Discharge instructions reviewed withpt who verbalized understanding. documented in this encounter Plan of Treatment Not on file documented as of this encounter Procedures Procedure Name Priority Date/Time Associated Diagnosis Comments PROTEIN/CREATININE RATIO, URINE STAT 06/09/2013 10:50 PM EST POCT URINE DIPSTICK Routine 06/09/2013 1 0:50 PM EST DIFFERENTIAL, AUTOMATED STAT 06/09/20 13 10:45 PM EST CREATININE STAT 06/09/2013 10:45 PM EST CBC (WITH DIFF) STAT 06/09/2013 10:45 PM EST ASPARTATE AMINOTRANSFERASE STAT 06/09/2013 10:45 PM EST documented in this encounter Results * POCT urine dipstick (06/09/2013 10:50 PM EST) POC Sp [place] 1.010 1.002 - 1.030 POC pH, UA 7.0 5.0 - 8.5 POC Leuk, UA neg Negative - Negative POC Nitrite, UA neg Negative - Negative POC Protein, UA neg Negative - Negative mg/dL POC Glucose, UA normal Normal - Normal mg/dL POC Ketone, UA neg Negative - Negative POC Urobil, UA 0.2 - 1.0 mg/dL POC Bili, UA neg Negative - Negative POC Blood, UA neg Negative - Negative christy/uL Urine specimen (specimen) 06/09/2013 10:50 PM EST Roxanne Galindo MD POINT OF CARE TEST O RDERABLES * Protein/Creatinine Ratio, urine (06/09/2013 10:50 PM EST) Pathologist [facility] Creatinine, Urine 38 mg/dL [facility] DiffonENNIUM Protein, Urine <6 0 - 12 mg/dL MCKENZIE MILLENNIUM Protein / Creatinine Ratio, Urine <0.1 ratio MCKENZIE MILLENNIUM Urine specimen (specimen) 06/09/2013 10:50 PM EST 06/09/2013 11:01 PM EST Narrative Resulting Agency Comment Spec In Lab Roxanne Galindo MD URINE ORDERABLES MCKENZIE DiffonPATRICKIUM * (ABNORMAL) Differential, Automated (06/09/2013 10:45 PM EST) Neutrophil % 66.8 34.0 - 71.0 % CERLISBETH MILLPATRICKIUM Neutrophil Absolute 6.34(H) 1.50 - 6.30 x10(3)/mc L CERNER MILLENNIUM Lymph % 24.2 19.0 - 53.0 % CERNER MILLENNIUM Lymphocytes Abs 2.3 1.0 - 3.6 x10(3)/mc L CERNER MILLENNIUM Monocyte % 6.6 4.0 - 13.0 % CERNER MILLENNIUM Monocyte Abs 0.6 0.2 - 1.0 x10(3)/mc L CERNER MILLENNIUM Eos % 1.6 0.0 - 7.0 % CERNER MILLENNIUM Eosinophils [...] performed. Immature Gran Absolute 0.07(H) 0.00 - 0.05 x10(3)/mc L CERNER MILLENNIUM Blood specimen (specimen) 06/09/2013 10:45 PM EST 06/09/2013 11:01 PM EST Roxanne Galindo MD HEMATOLOGY ORDERABLE S MCKENZIE RUSH * Creatinine (06/09/2013 10:45 PM EST) Creatinine 0.77 0.70 - 1.20 mg/dL CERNER MILLENNIUM Comment: Please note that the pediatric reference intervals supplied above were not validated at [facility]. Results from pediatric patients should be interpreted [...] internet browser. http://www.nkdep.nih.gov/lab-evaluation.shtml http://www.kidney.org/professionals/ Blood specimen (specimen) 06/09/2013 10:45 PM EST 06/09/2013 11:01 PM EST Narrative Resulting Agency Comment Spec In Lab Roxanne Galindo MD CHEMISTRY ORDERABLES Performing Organization Address City/[facility] Co de Phone Number CERNER MILLENNIUM * Aspartate Aminotransferase (06/09/2013 10:45 PM EST) Aspartate Aminotransferase 12 5 - 30 unit/L CERNER MILLENNIUM Blood specimen (specimen) 06/09/2013 10:45 PM EST 06/09/2013 11:01 PM EST Narrative Resulting Agency Comment Spec In Lab Roxanne Galindo MD CHEMISTRY ORDERABLES Performing Organization Address City/[facility] Co de Phone Number CERLISBETH VALDEZENNIUM * (ABNORMAL) CBC (with Diff) (06/09/2013 10:45 PM EST) White Blood Cell 9.5 4.0 - 10.0 x10(3)/mc L CERNER MILLENNIUM [...] x10(3)/mc L CERNER MILLENNIUM RDW Standard Deviation 43.3 35.0 - 46.0 fL [facility] RDW coefficient of variation 13.5 10.9 - 14.4 % [facility] COURTNEYENNIUM Mean Platelet Volume 10.8 9.0 - 12.0 fL MCKENZIE VALDEZENNIUM Blood specimen (specimen) 06/09/2013 10:45 PM EST 06/09/2013 11:01 PM EST Narrative Resulting Agency Comment Spec In Lab Roxanne Galindo MD HEMATOLOGY ORDERABLE S [facility] documented in this encounter Visit Diagnoses Diagnosis Gestational hypertension, third trimester Hx of preeclampsia, prior , currently , third trimester documented in this encounter Care Teams Sterile Supervisor Relationship Specialty Start Date End Date Domonique Sweeney APRN [facility] [address] [place] [address] PCP - General 11/30/12 06/12/18 documented as of this encounter
--- OUTSIDE RECORDS SUMMARY | 2024-06-26 16:46 | XMS_ITS | Encounter Summary ---
Author [place] [address] Care Team Providers Care Truck Driving Name Role Phone Zahra Domonique Kim APRN Primary Care Provider +1- [phone] Reason for Visit * Reason Comments Other Encounter Details Date Type Department Care Team (Late st Contact Info) Description 05/10/2013 Telephone Obstetrics [place] [address] Isaak Watson RN Social History Tobacco Use Types [...] Telephone Encounter - Isaak Watson RN - 05/10/2013 9:44 AM EST Carol was notified by phone that her PI labs were WDL per Dr. Sarmiento. * Telephone Encounter - Isaak Watson RN - 05/10/2013 9:43 AM EST Message copied by ISAAK WATSON on MonMay 10, 2013 9:43 AM ------ Message from: DIANA SARMIENTO Created: MonMay 08, 2013 6:10 PM Can you let her know her labs were normal ----- Message ----- From: [place], Lab In seven Sent: 05/08/2013 12:54 PM To: Diana Sarmiento MD documented in this encounter Plan of Treatment Not on file documented as of this encounter Visit Diagnoses Not on filedocumented in this encounter Care Teams Truck Driving Relationship Specialty Start Date End Date Domonique Sweeney APRN [facility] [address] [place] [address] PCP - General 11/30/12 06/12/18 documented as of this encounter
--- OUTSIDE RECORDS SUMMARY | 2024-06-26 16:46 | XMS_ITS | Encounter Summary ---
[place] [address] Care Team Providers Care Commercial Green Building Architect Name Role Phone Domonique Sweeney APRN Primary Care Provider [phone]- [phone] Encounter Details Date Type Department Care Team (Late st Contact Info) Description 05/31/2013 12:49 PM EST - 05/31/2013 11:59 PM EST Hospital [place] [id number] Social History Tobacco Use Types Packs/Day Years [...] Diagnosis Comments US OB FOLLOW UP Routine 05/31/2013 1:33 PM EST documented in this encounter Results * US OB follow up evaluation (05/31/2013 1:33 PM EST) Anatomical Region Laterality Modality Pelvis, Abdomen Ultrasound 05/31/2013 1:33 PM EST Narrative 05/31/2013 1:43 PM EST ?OBSTETRICS REPORT ?(Signed Final 05/31/2013 01:43 pm) Patient Info ID: ?[id number] ?: ??[birth year] (17 yrs) Name: ?SHAWN PEÑALOZA CONNIE ? Visit Date: 05/31/2013 01:22 pm Performed By Performed By: ?Kerline Antonio RDMS Attending: ? Guillermina MAGUIRE, Georgia Martinez Referred By: ? SIMON GLASS MD OB History BMI: ?27.29 Service(s) Provided UOBFOL - Efw - Growth - Reevaluation - [place] - ?[id number] Indications h/o IUGR in a previous ;mfm to read Evaluation Num Of Fetuses: ?1 Heart Rate: ??148 ?bpm Cardiac Activity: ??Observed, normal rhythm Presentation: ?Breech Placenta: ?Anterior P. Cord Insertion: Within Normal Limits Amniotic Fluid GABINO FV: ?Within normal limits GABINO Sum: ? 10.05 ?? cm ?Larg Pckt: ?? 2.79 ??cm RUQ: ?? 2.64 ?cm ?LUQ: ?? 2.79 ?? cm RLQ: ?? 1.9 ? cm ?LLQ: ?? 2.72 ?? cm -------- Biometry -------- BPD: ?74.3 ??mm ?G. Age: ?? 29w 6d ? 21 ??% HC: ?303.5 ??mm ?G. Age: ?? 33w 5d ? 93 ??% AC: ?277.8 ??mm ?G. Age: ?? 31w 6d ? 83 ??% FL: ? 58.4 ??mm ?G. Age: ?? 30w 4d ? 38 ??% HUM: ?54.2 ??mm ?G. Age: ?? 31w 4d ? 73 ??% CI: ? 62.43 ??% ? 70 - 86 FL/HC: ? 19.2 ??% ? 19.2 - 21.4 HC/AC: ? 1.09 ?0.99 - 1.21 FL/BPD: ?78.6 ??% ? 71 - 87 FL/AC: ? 21.0 ??% ? Est. FW: ?1768 ??gm ? 3 lb 14 oz ? 88 ??% Gestational Age U/S Today: ? 31w 4d ?TYE: ?? 07/29/13 Best: ?30w 3d ?? Det. By: ??U/S C R L ?TYE: ?? 08/06/13 ? (12/25/12) ------- Anatomy ------- Cranium: ?Visualized Cavum: ?Visualized Ventricles: ? Limited Views Choroid Plexus: ? Not Visualized Cerebellum: ? Not Visualized Posterior Fossa: ?Limited Views Nuchal Fold: ?Not evaluated at this gestational age Face: ? Not evaluated Heart: ?4-chamber view appears normal RVOT: ? Not evaluated LVOT: ? Not evaluated Diaphragm: ?Visualized Stomach: ?Visualized Abdomen: ?Within Normal Limits Abdominal Wall: ? Not visualized due to late gestational age Cord Vessels: ? 3-vessels- WNL Kidneys: ?Visualized Bladder: ?Visualized Spine: ?Limited views Lower ? Limited views Extremities: Upper Extremities: ??Limited views Cervix Uterus Adnexa Left Ovary: ?Not visualized Right Ovary: ?? Not visualized Impression 3rd Trimester Summary Single intrauterine with a gestational age of 30w 3d based on CRL. Composite age based on the current ultrasound alone is 31w 4d. Estimated weight corresponds to the 88th percentile for 30w 3d. Current growth parameters are consistent indicating normal growth. Amniotic fluid volume is within normal limits, GABINO = 10.05 cm Anatomical survey is limited due to the late gestational age, however no structural abnormalities are noted. I ??viewed the images and agree with the above interpretation. Thank you for allowing us to participate in the care of SHAWN ROSALES. Please do not hesitate to call if you have any questions. ? Georgia Sarmiento MD Electronically Signed Final Report ?? 05/31/2013 01:43 pm Procedure Note Georgia Sarmiento MD - 05/31/2013 OBSTETRICS REPORT (Signed Final 05/31/2013 01:43 pm) Patient Info ID: [id number] : [birth year] (17 yrs) Name: SHAWN ROSALES Visit Date: 05/31/2013 01:22 pm Performed By Performed By: Kerline Antonio RDMS Attending: Georgia Sarmiento MD Referred By: SIMON GLASS MD OB History BMI: 27.29 Service(s) Provided UOBFO - w - Growth - Reevaluation - [place] - [phone] Indications h/o IUGR in a previous ;mfm to read Evaluation Num Of Fetuses: 1 Heart Rate: 148 bpm Cardiac Activity: Observed, normal rhythm Presentation: Breech Placenta: Anterior P. Cord Insertion: Within Normal Limits Amniotic Fluid GABINO FV: Within normal limits GABINO Sum: 10.05 cm Larg Pckt: 2.79 cm RUQ: 2.64 cm LUQ: 2.79 cm RLQ: 1.9 cm LLQ: 2.72 cm -------- Biometry -------- BPD: 74.3 mm G. Age: 29w 6d 21 % HC: 303.5 mm G. Age: 33w 5d 93 % AC: 277.8 mm G. Age: 31w 6d 83 % FL: 58.4 mm G. Age: 30w 4d 38 % HUM: 54.2 mm G. Age: 31w 4d 73 % CI: 62.43 % 70 - 86 FL/HC: 19.2 % 19.2 - 21.4 HC/AC: 1.09 0.99 - 1.21 FL/BPD: 78.6 % 71 - 87 FL/AC: 21.0 % 20 - 24 Est. FW: 1768 gm 3 lb 14 oz 88 % Gestational Age U/S Today: 31w 4d TYE: 07/29/13 Best: 30w 3d Det. By: U/S Cas Ferro TYE: 08/06/13 (12/25/12) ------- Anatomy ------- Cranium: Visualized Cavum: Visualized Ventricles: Limited Views Choroid Plexus: Not Visualized Cerebellum: Not Visualized Posterior Fossa: Limited Views Nuchal Fold: Not evaluated at this gestational age Face: Not evaluated Heart: 4-chamber view appears normal RVOT: Not evaluated LVOT: Not evaluated Diaphragm: Visualized Stomach: Visualized Abdomen: Within Normal Limits Abdominal Wall: Not visualized due to late gestational age Cord Vessels: 3-vessels- WNL Kidneys: Visualized Bladder: Visualized Spine: Limited views Lower Limited views Extremities: Upper Extremities: Limited views Cervix Uterus Adnexa Left Ovary: Not visualized Right Ovary: Not visualized Impression 3rd Trimester Summary Single intrauterine with a gestational age of 30w 3d based on CRL. Composite age based on the current ultrasound alone is 31w 4d. Estimated weight corresponds to the 88th percentile for 30w 3d. Current growth parameters are consistent indicating normal growth. Amniotic fluid volume is within normal limits, GABINO = 10.05 cm Anatomical survey is limited due to the late gestational age, however no structural abnormalities are noted. I viewed the images and agree with the above interpretation. Thank you for allowing us to participate in the care of SHAWN ROSALES. Please do not hesitate to call if you have any questions. Georgia Sarmiento MD Electronically Signed Final Report 05/31/2013 01:43 pm Simon Glass MD IMG US OB ORDERABLES documented in this encounter Visit Diagnoses Diagnosis state, incidental documented in this encounter Care Teams Commercial Green Building Architect Relationship Specialty Start Date End Date Domonique Sweeney APRN [facility] [address] [place] [address] PCP - General 11/30/12 06/12/18 documented as of this encounter
--- OUTSIDE RECORDS SUMMARY | 2024-06-26 16:46 | XMS_ITS | Encounter Summary ---
Author Organization [place] [address] Care Team Providers Care Associate Professor Of Counseling Name Role Phone Domonique Sweeney APRN Primary Care Provider +1- [phone] Encounter Details Date Type Department Care Team (Late st Contact Info) Description 06/05/2013 Telephone Obstetrics [place] [phone] John Anrdade MD [facility] OBST[facility]ICS [place] [address] Social History Tobacco Use Types Packs/Day Years [...] encounter Miscellaneous Notes * Telephone Encounter - John Andrade - 06/05/2013 8:53 PM EST Carol Spears is a 17 y.o. @ 31w1d Had an appointment with Dr. Boudreaux on Monday. Told to call for elevated BP, worsening QUESADA, dec FM. Today 143/86, hand swelling cant get rings off, headache is persistent and getting worse. Headache has been going on for a few days. No visual changes. No persistent epigastric-RUQ pain. Denies CTX, LOF, VB. Feeling FM, but decreased. In prior developed preeclampsia at 28 weeks. Has not done a 24 hour urine protein in thispregnancy. Has not had steroids. Patient is coming in now to be evaluated for preeclampsia. Dr. Soliman and charge nurse aware. JOHN ANDRADE MD PGY4 documented in this encounter Plan of Treatment Not on file documented as of this encounter Visit Diagnoses Not on filedocumented in this encounter Care Teams Associate Professor Of Counseling Relationship Specialty Start Date End Date Domonique Sweeney, DIETARY SERVICES MANAGER [facility] [address] [place] [address] PCP - General 11/30/12 06/12/18 documented as of this encounter
--- OUTSIDE RECORDS SUMMARY | 2024-06-26 16:46 | XMS_ITS | Encounter Summary ---
[place] [address] Care Team Providers Care Civil Engineer Name Role Phone ZahraRaquelDomoniquemichelle Kim APRN Primary Care Provider +1- [phone] Encounter Details Date Type Department Care Team (Late st Contact Info) Description 04/26/2013 Orders Only [place]stetrics [place] [phone] Vaishnavi Watson RN (Primary Dx) Social History Tobacco Use Types [...] Final 05/31/2013 01:43 pm) Patient Info ID: ?[id number] ?: ??[birth year] (17 yrs) Name: ?SHAWN ROSALES ? Visit Date: 05/31/2013 01:22 pm Performed By Performed By: ?Paco SPICER, Kerline Attending: ? Guillermina MAGUIRE, Georgia Martinez Referred By: ? DON BOUDREAUX MD OB History BMI: ?27.29 Service(s) Provided UOBFOL - Efw - Growth - Reevaluation - [place] - ?[phone] Indications h/o IUGR in a previous ;mfm [...] - 87 FL/AC: ? 21.0 ??% ? 20 - 24 Est. FW: ?1768 ??gm ? 3 lb 14 oz ? 88 ??% Gestational Age U/S Today: ? 31w 4d ?TYE: ?? 02/17/14 Best: ?30w 3d ?? Det. By: ??U/S [...] Report ?? 05/31/2013 01:43 pm Procedure Note Geogria Sarmiento MD - 05/31/2013 OBSTETRICS REPORT (Signed Final 05/31/2013 01:43 pm) Patient Info ID: [id number] : [birth year] (17 yrs) Name: SHAWN ROSALES Visit Date: 05/31/2013 01:22 pm Performed By Performed By: eKrline Antonio RDMS Attending: Georgia Sarmiento MD Referred By: DON BOUDREAUX MD OB History BMI: 27.29 Service(s) Provided UOBFOL - Efw - Growth - Reevaluation - [place] - [phone] Indications h/o IUGR in a previous ;mfm to read Evaluation Num Of Fetuses: 1 Heart Rate: 148 bpm Cardiac Activity: Observed, normal rhythm Presentation: Breech Placenta: Anterior P. Cord Insertion: Within Normal Limits Amniotic Fluid AGBINO FV: Within normal limits GABINO Sum: 10.05 [...] 07/29/13 Best: 30w 3d Det. By: U/S C R L [...] Electronically Signed Final Report 05/31/2013 01:43 pm Don Boudreaux MD IMG US OB ORDERABLES documented in this encounter Visit Diagnoses Diagnosis - Primary state, incidental state, incidental documented in this encounter Care Teams Civil Engineer Relationship Specialty Start Date End Date Domonique Sweeney APRN [facility] [address] [place] [address] PCP - General 11/30/12 06/12/18 documented as of this encounter
--- OUTSIDE RECORDS SUMMARY | 2024-06-26 16:47 | XMS_ITS | Clinical Summary ---
Author Organization [facility] Address [address] [place] [id number] Care Team Providers Care Security Operations Specialist Name Role Phone Unavailable Primary Care Provider Unavailabl e Social History Tobacco Use Types Packs/Day Years Used Date Smoking Tobacco: Never Assessed Interpersonal Safety Answer Date Record ed Physically Hurt Never 06/01/2020 Verbally Threaten Not on file 06/01/2020 Comments Unknown Sex and Gender Information Value Date Recorded Sex Assigned at Not on file Legal Sex Female 16:33 EST Gender Identity Not on file Sexual Orientation Not on file Plan of Treatment Health Maintenance Due Date Last Done Comments Hepatitis C Screen 1995 Hepatitis B Vaccine (1 of 3 - 19+ 3-dose series) 10/20 COVID-19 Vaccine (2023- season) 2024
--- OUTSIDE RECORDS SUMMARY | 2024-06-26 16:47 | XMS_ITS | Encounter Summary ---
[place] [address] Care Team Providers Care Mine Inspector Federal Name Role Phone Fernando Lomeli MD Primary Care Provider [phone] Encounter Details Date Type Department Care Team (Latest Contact Info) Description 07/28/2010 1:17 AM EST - 08/02/2010 2:55 PM EST [place] [id number] Severo Carreon MD [facility] [address] OBSTET[place] [place] [address] Chris Peoples MD Discharge Disposition: Home Social History Tobacco Use Types Packs/Day Years Used Date Smoking Tobacco: Never Assessed Comments Yes Sex and Gender Information Value Date Recorded Sex Assigned at Not on file Gender Identity Not on file Sexual Orientation Not on file documented as of this encounter Last Filed Vital Signs Vital Sign Reading Time Taken Comments Blood Pressure - - Pulse - - Temperature - - Respiratory Rate - - Oxygen Saturation - - Inhaled Oxygen Concentration - - Weight 77 kg (169 lb 12.1 oz) 08/01/2010 9:39 AM EST Simultaneous filing. User may not have seen previous data. Height 154 cm (5' 0.63) 08/01/2010 9:4 0 AM EST Body Mass Index 32.47 08/01/2010 9:39 AM EST Body Mass Index Percentile 96.73% 08/01/2010 9:40 AM EST Growth Chart: [facility] (Girls, 2- 20 Years) documented in this encounter Plan of Treatment Not on file documented as of this encounter Procedures Procedure Name Priority Date/Time Associated Diagnosis Comments DIFFERENTIAL, AUTOMATED STAT 08/01/19 11 10:15 PM EST CREATININE STAT 08/01/2010 10:15 PM EST APTT STAT 08/01/2010 10:15 PM EST PROTHROMBIN TIME STAT 08/01/2010 10:1 5 PM EST CBC (WITH DIFF) STAT 08/01/2010 10:15 PM EST ASPARTATE AMINOTRANSFERASE STAT 08/01/2010 10:15 PM EST DIFFERENTIAL, AUTOMATED STAT 07/30/19 11 9:15 AM EST CREATININE STAT 07/30/2010 9:15 AM EST CBC (WITH DIFF) STAT 07/30/2010 9:15 AM EST BUN STAT 07/30/2010 9:15 AM EST ASPARTATE AMINOTRANSFERASE STAT 07/30/2010 9:15 AM EST DIFFERENTIAL, AUTOMATED STAT 07/30/19 11 3:00 AM EST CREATININE STAT 07/30/2010 3:00 AM EST CBC (WITH DIFF) STAT 07/30/2010 3:00 AM EST ASPARTATE AMINOTRANSFERASE STAT 07/30/2010 3:00 AM EST DIFFERENTIAL, AUTOMATED STAT 07/29/19 11 9:00 PM EST CREATININE STAT 07/29/2010 9:00 PM EST CBC (WITH DIFF) STAT 07/29/2010 9:00 PM EST ASPARTATE AMINOTRANSFERASE STAT 07/29/2010 9:00 PM EST BLOOD GAS ARTERIAL CORD STAT 07/29/19 11 2:06 PM EST BLOOD GAS VENOUS CORD STAT 07/29/2010 2:06 PM EST DIFFERENTIAL, AUTOMATED STAT 07/29/19 11 1:10 PM EST CREATININE STAT 07/29/2010 1:10 PM EST CBC (WITH DIFF) STAT 07/29/2010 1:10 PM EST BUN STAT 07/29/2010 1:10 PM EST ASPARTATE AMINOTRANSFERASE STAT 07/29/2010 1:10 PM EST SURGICAL PATHOLOGY REPORT Routine 07/29/2010 10:16 AM EST DIFFERENTIAL, AUTOMATED Routine 07/29/19 11 5:00 AM EST CREATININE Routine 07/29/2010 5:00 AM EST CBC (WITH DIFF) Routine 07/29/2010 5:00 AM EST ASPARTATE AMINOTRANSFERASE Routine 07/29/2010 5:00 AM EST DIFFERENTIAL, AUTOMATED Routine 07/28/19 11 11:15 PM EST CREATININE Routine 07/28/2010 11:15 PM EST CBC (WITH DIFF) Routine 07/28/2010 11:15 PM EST ASPARTATE AMINOTRANSFERASE Routine 07/28/2010 11:15 PM EST DIFFERENTIAL, AUTOMATED STAT 07/28/19 11 5:35 PM EST CREATININE STAT 07/28/2010 5:35 PM EST CBC (WITH DIFF) STAT 07/28/2010 5:35 PM EST ASPARTATE AMINOTRANSFERASE STAT 07/28/2010 5:35 PM EST MAGNESIUM STAT 07/28/2010 5:35 PM EST CREATININE STAT 07/28/2010 9:20 AM EST BUN STAT 07/28/2010 9:20 AM EST ASPARTATE AMINOTRANSFERASE STAT 07/28/2010 9:20 AM EST URINALYSIS WITH REFLEX CULTURE STAT 07/28/2010 4:10 AM EST URINE CULTURE Routine 07/28/2010 4:10 AM EST GROUP B STREP CULTURE SCREEN Routine 07/28/2010 2:24 AM EST SCAN, PERIPHERAL BLOOD STAT 1 2:00 AM EST DIFFERENTIAL, AUTOMATED STAT 07/28/19 11 2:00 AM EST CREATININE STAT 07/28/2010 2:00 AM EST ABO/RH TYPING STAT 07/28/2010 2:00 AM EST APTT STAT 07/28/2010 2:00 AM EST PROTHROMBIN TIME STAT 07/28/2010 2:00 AM EST FIBRINOGEN STAT 07/28/2010 2:00 AM EST CBC (WITH DIFF) STAT 07/28/2010 2:00 AM EST ANTIBODY SCREEN STAT 07/28/2010 2:00 AM EST HEPATIC FUNCTION PANEL STAT 1 2:00 AM EST documented in this encounter Results * (ABNORMAL) REFLEX LAB-A-DIFF (08/01/2010 10:15 PM EST) Neutrophil % 68.3 37.0 - 77.0 % CERNER MILLENNIUM Neutrophil Absolute 9.71(H) 1.50 - 8.00 x10(3)/mc L CERNER MILLENNIUM Lymph % 21.5 20.0 - 50.0 % CERNER MILLENNIUM Lymphocytes Abs 3.1 1.2 - 5.2 x10(3)/mc L CERNER MILLENNIUM Monocyte % 5.1 2.0 - 12.0 % CERNER MILLENNIUM Monocyte Abs 0.7 0.2 - 1.0 x10(3)/mc L CERNER MILLENNIUM Eos % 3.8 0.0 - 7.0 % CERNER MILLENNIUM Eosinophils Abs 0.5 0.0 - 0.5 x10(3)/mc L CERNER MILLENNIUM Basophil % 0.3 0.0 - 2.0 % CERNER MILLENNIUM Baso Absolute 0.0 0.0 - 0.2 x10(3)/mc L CERNER MILLENNIUM Immature Gran % 1.00(H) 0.00 - 0.66 % CERNER MILLENNIUM Comment: Immature granulocytes(IG's)percentage and absolute count will include metamyelocytes, myelocytes, and promyelocytes. Blood smears from CBCs yielding IG's will be scanned manually for concordance. If this scan disagrees with the automated IG or if promyelocytes are noted, a manual differential will be performed. Immature Gran Absolute 0.14(H) 0.00 - 0.05 x10(3)/mc L CERNER MILLENNIUM Blood specimen (specimen) 08/01/2010 10:15 PM EST 08/01/2010 10:27 PM EST Dafne Bower MD HEMATOLOGY ORDERABL ES CERNER COURTNEYENNIUM * APTT (08/01/2010 10:15 PM EST) Pathologist [facility] Partial Thromboplastin Time 25 25 - 37 sec [facility] Comment: Recommended therapeutic PTT range for full dose unfractionated heparin is 80-114 seconds. Blood specimen (specimen) 08/01/2010 10:15 PM EST 08/01/2010 10:27 PM EST Dafne Bower MD HEMATOLOGY ORDERABL ES Performing Organization Address [facility] de Phone Number [facility]IE [facility] * (ABNORMAL) PROTIME-INR (08/01/2010 10:15 PM EST) Prothrombin Time 11.9(L) 12.3 - 14.7 sec [facility] COURTNEYENNIUM Comment: [facility] Transfusion Committee Guidelines: INR less than 2.0, PTT less than OR equal to 43.5 seconds, or Fibrinogen greater than or equal to 100 mg/dl indicate adequate procoagulant activity for hemostasis in patients without underlying bleeding disorders. International Normalization Ratio 0.9 0.9 - 1.1 [facility] Blood specimen (specimen) 08/01/2010 10:15 PM EST 08/01/2010 10:27 PM EST Dafne Bower MD HEMATOLOGY ORDERABL ES Performing Organization Address [facility] Phone Number MCKENZIE RUSH * ASPARTATE AMINOTRANSFERASE (08/01/2010 10:15 PM EST) Aspartate Aminotransferase 16 5 - 30 unit/L [facility] COURTNEYENNIUM Blood specimen (specimen) 08/01/2010 10:15 PM EST 08/01/2010 10:25 PM EST Dafne Bower MD CHEMISTRY ORDERABLE S Performing Organization Address [facility] Co de Phone Number MCKENZIE ELLISIUM * (ABNORMAL) CBC (08/01/2010 10:15 PM EST) White Blood Cell 14.2(H) 4.5 - 13.0 x10(3)/mc L [facility] MILLENNIUM Red Blood Cell 3.29(L) 4.10 - 5.10 x10(6)/mc L CERNER MILLENNIUM Hemoglobin 10.1(L) 12.0 - 16.0 gm/dL CERNER MILLENNIUM Hematocrit 29.5(L) 36.0 - 46.0 % CERNER MILLENNIUM Mean Cell Volume 89.7 76.0 - 98.0 fL CERNER MILLENNIUM Mean Cell Hemoglobin 30.7 25.0 - 35.0 pg CERNER MILLENNIUM Mean Cell Hemoglobin Concentration 34.2 32.0 - 36.5 gm/dL CERNER MILLENNIUM Platelet 166 145 - 370 x10(3)/mc L CERNER MILLENNIUM RDW Standard Deviation 42.6 35.0 - 46.0 fL CERNER MILLENNIUM RDW coefficient of variation 13.1 10.9 - 14.4 % CERNER MILLENNIUM Mean Platelet Volume 10.3 9.0 - 12.0 fL CERNER MILLENNIUM Blood specimen (specimen) 08/01/2010 10:15 PM EST 08/01/2010 10:27 PM EST Dafne Bower MD HEMATOLOGY ORDERABL ES CERNER MILLENNIUM * CREATININE, SERUM (08/01/2010 10:15 PM EST) Creatinine 0.61 0.20 - 0.70 mg/dL CERNER MILLENNIUM Est Glomerular Filtration Rate See note >=60 CERNER MILLENNIUM Comment: Calculated GFR not appropriate for patients less than 18 years of age. The National Kidney Disease Education Program (NKDEP) has recommended all laboratories report estimated GFR (eGFR) along with plasma creatinine measurements to assist you with recognition of early kidney disease. Caveats: ??Plasma creatinine should be at steady-state (unchanged within the past week). ??Patient age > = 18 years, and for Americans multiply eGFR by 1.2. At present, NKDEP does NOT recommend using the MDRD equation for drug dosing purposes and pharmacists should continue to use their current dosing methods. In addition, numerical eGFR values greater than 60 ml/min/1.73 square meters should be treated as > 60, and not an exact number due to greater inaccuracies at these higher values. Per NKDEP, they classify normal renal function as any GFR >60ml/min/1.73 square meters; chronic kidney disease when GFR <60, and renal failure when GFR <15. ??This calculation may not be valid for patients with atypical muscle mass (very lean or obese), acute renal failure, and in patients with diabetic kidney disease. References: http://nkdep.nih.gov/resources/NKDEP_Suggestn4Labs_0606_508.pdf http://www.kidney.org/professionals/kls/pdf/faq_gfr.pdf Blood specimen (specimen) 08/01/2010 10:15 PM EST 08/01/2010 10:25 PM EST Dafne Bower MD CHEMISTRY ORDERABLE S CERNER MILLENNIUM * (ABNORMAL) REFLEX LAB-A-DIFF (07/30/2010 9:15 AM EST) Neutrophil % 81.9(H) 37.0 - 77.0 % CERNER MILLENNIUM Neutrophil Absolute 16.12(H) 1.50 - 8.00 x10(3)/mc L CERNER MILLENNIUM Lymph % 12.4(L) 20.0 - 50.0 % CERNER MILLENNIUM Lymphocytes Abs 2.5 1.2 - 5.2 x10(3)/mc L CERNER MILLENNIUM Monocyte % 5.0 2.0 - 12.0 % CERNER MILLENNIUM Monocyte Abs 1.0 0.2 - 1.0 x10(3)/mc L CERNER MILLENNIUM Eos % 0.0 0.0 - 7.0 % CERNER MILLENNIUM Eosinophils Abs 0.0 0.0 - 0.5 x10(3)/mc L CERNER MILLENNIUM Basophil % 0.1 0.0 - 2.0 % CERNER MILLENNIUM Baso Absolute 0.0 0.0 - 0.2 x10(3)/mc L CERNER MILLENNIUM Immature Gran % 0.60 0.00 - 0.66 % CERNER MILLENNIUM Comment: Immature granulocytes(IG's)percentage and absolute count will include metamyelocytes, myelocytes, and promyelocytes. Blood smears from CBCs yielding IG's will be scanned manually for concordance. If this scan disagrees with the automated IG or if promyelocytes are noted, a manual differential will be performed. Immature Gran Absolute 0.12(H) 0.00 - 0.05 x10(3)/mc L CERNER MILLENNIUM Blood specimen (specimen) 07/30/2010 9:15 AM EST 07/30/2010 9:35 AM EST Duc Henry MD HEMATOLOGY ORDERABL ES CERLISBETH VALDEZENNIUM * (ABNORMAL) CBC (07/30/2010 9:15 AM EST) White Blood Cell 19.7(H) 4.5 - 13.0 x10(3)/mc L CERNER MILLENNIUM Red Blood Cell 3.66(L) 4.10 - 5.10 x10(6)/mc L CERNER MILLENNIUM Hemoglobin 11.3(L) 12.0 - 16.0 gm/dL CERNER MILLENNIUM Hematocrit 32.6(L) 36.0 - 46.0 % CERNER MILLENNIUM Mean Cell Volume 89.1 76.0 - 98.0 fL CERNER MILLENNIUM Mean Cell Hemoglobin 30.9 25.0 - 35.0 pg CERNER MILLENNIUM Mean Cell Hemoglobin Concentration 34.7 32.0 - 36.5 gm/dL CERNER MILLENNIUM Platelet 238 145 - 370 x10(3)/mc L CERNER MILLENNIUM RDW Standard Deviation 43.3 35.0 - 46.0 fL CERNER MILLENNIUM RDW coefficient of variation 13.2 10.9 - 14.4 % CERNER MILLENNIUM Mean Platelet Volume 10.5 9.0 - 12.0 fL CERNER MILLENNIUM Blood specimen (specimen) 07/30/2010 9:15 AM EST 07/30/2010 9:35 AM EST Duc Henry MD HEMATOLOGY ORDERABL ES CERLISBETH VALDEZENNIUM * ASPARTATE AMINOTRANSFERASE (07/30/2010 9:15 AM EST) Aspartate Aminotransferase 16 5 - 30 unit/L [facility] COURTNEYENNIUM Blood specimen (specimen) 07/30/2010 9:15 AM EST 07/30/2010 9:34 AM EST Duc Henry MD CHEMISTRY ORDERABLE S [facility] * (ABNORMAL) CREATININE, SERUM (07/30/2010 9:15 AM EST) Creatinine 0.85(H) 0.20 - 0.70 mg/dL CERNER MILLENNIUM Est Glomerular Filtration Rate See note >=60 CERNER MILLENNIUM Comment: Calculated GFR not appropriate for patients less than 18 years of age. The National Kidney Disease Education Program (NKDEP) has recommended all laboratories report estimated GFR (eGFR) along with plasma creatinine measurements to assist you with recognition of early kidney disease. Caveats: ??Plasma creatinine should be at steady-state (unchanged within the past week). ??Patient age > = 18 years, and for Americans multiply eGFR by 1.2. At present, NKDEP does NOT recommend using the MDRD equation for drug dosing purposes and pharmacists should continue to use their current dosing methods. In addition, numerical eGFR values greater than 60 ml/min/1.73 square meters should be treated as > 60, and not an exact number due to greater inaccuracies at these higher values. Per NKDEP, they classify normal renal function as any GFR >60ml/min/1.73 square meters; chronic kidney disease when GFR <60, and renal failure when GFR <15. ??This calculation may not be valid for patients with atypical muscle mass (very lean or obese), acute renal failure, and in patients with diabetic kidney disease. References: http://nkdep.nih.gov/resources/NKDEP_Suggestn4Labs_0606_508.pdf http://www.kidney.org/professionals/kls/pdf/faq_gfr.pdf Blood specimen (specimen) 07/30/2010 9:15 AM EST 07/30/2010 9:34 AM EST Duc Henry MD CHEMISTRY ORDERABLE S Performing Organization Address City/[facility]/ZIP Co de Phone Number MCKENZIE ELLISIUM * BUN (07/30/2010 9:15 AM EST) Blood Urea Nitrogen 17 10 - 20 mg/dL CERNER MILLENNIUM Blood specimen (specimen) 07/30/2010 9:15 AM EST 07/30/2010 9:34 AM EST Duc Henry MD CHEMISTRY ORDERABLE S Performing Organization Address [facility] Co de Phone Number MCKENZIE ELLISIUM * (ABNORMAL) REFLEX LAB-A-DIFF (07/30/2010 3:00 AM EST) Neutrophil % 83.6(H) 37.0 - 77.0 % CERNER MILLENNIUM Neutrophil Absolute 16.28(H) 1.50 - 8.00 x10(3)/mc L CERNER MILLENNIUM Lymph % 10.9(L) 20.0 - 50.0 % CERNER MILLENNIUM Lymphocytes Abs 2.1 1.2 - 5.2 x10(3)/mc L CERNER MILLENNIUM Monocyte % 4.8 2.0 - 12.0 % CERNER MILLENNIUM Monocyte Abs 0.9 0.2 - 1.0 x10(3)/mc L CERNER MILLENNIUM Eos % 0.1 0.0 - 7.0 % CERNER MILLENNIUM Eosinophils [...] differential will be performed. Immature Gran Absolute 0.09(H) 0.00 - 0.05 x10(3)/mc L CERNER MILLENNIUM Blood specimen (specimen) 07/30/2010 3:00 AM EST 07/30/2010 3:19 AM EST Chris Peoples MD HEMATOLOGY ORDERABLE S CERNER MILLENNIUM * ASPARTATE AMINOTRANSFERASE (07/30/2010 3:00 AM EST) Aspartate Aminotransferase 15 5 - 30 unit/L CERNER MILLENNIUM Blood specimen (specimen) 07/30/2010 3:00 AM EST 07/30/2010 3:18 AM EST Chris Peoples MD CHEMISTRY ORDERABLES Performing Organization Address City/[facility]/ZIP Co de Phone Number CERNER MILLENNIUM * (ABNORMAL) CBC (07/30/2010 3:00 AM EST) White Blood Cell 19.4(H) 4.5 - 13.0 x10(3)/mc L CERNER MILLENNIUM Red Blood Cell 3.37(L) 4.10 - 5.10 x10(6)/mc L CERNER MILLENNIUM Hemoglobin 10.4(L) 12.0 - 16.0 gm/dL CERNER MILLENNIUM Hematocrit 30.1(L) 36.0 - 46.0 % CERNER MILLENNIUM Mean Cell Volume 89.3 76.0 - 98.0 fL CERNER MILLENNIUM Mean Cell Hemoglobin 30.9 25.0 - 35.0 pg CERNER MILLENNIUM Mean Cell Hemoglobin Concentration 34.6 32.0 - 36.5 gm/dL CERNER MILLENNIUM Platelet 231 145 - 370 x10(3)/mc L CERNER MILLENNIUM RDW Standard Deviation 43.5 35.0 - 46.0 fL CERNER MILLENNIUM RDW coefficient of variation 13.4 10.9 - 14.4 % CERNER MILLENNIUM Mean Platelet Volume 10.5 9.0 - 12.0 fL CERNER MILLENNIUM Blood specimen (specimen) 07/30/2010 3:00 AM EST 07/30/2010 3:19 AM EST Chris Peoples MD HEMATOLOGY ORDERABLE S MCKENZIE RUSH * (ABNORMAL) CREATININE, SERUM (07/30/2010 3:00 AM EST) Creatinine 0.92(H) 0.20 - 0.70 mg/dL CERNER MILLENNIUM Est Glomerular Filtration Rate See note >=60 CERNER MILLENNIUM Comment: Calculated GFR not appropriate for patients less than 18 years of age. The National Kidney Disease Education Program (NKDEP) has recommended all laboratories report estimated GFR (eGFR) along with plasma creatinine measurements to assist you with recognition of early kidney disease. Caveats: ??Plasma creatinine should be at steady-state (unchanged within the past week). ??Patient age > = 18 years, and for Americans multiply eGFR by 1.2. At present, NKDEP does NOT recommend using the MDRD equation for drug dosing purposes and pharmacists should continue to use their current dosing methods. In addition, numerical eGFR values greater than 60 ml/min/1.73 square meters should be treated as > 60, and not an exact number due to greater inaccuracies at these higher values. Per NKDEP, they classify normal renal function as any GFR >60ml/min/1.73 square meters; chronic kidney disease when GFR <60, and renal failure when GFR <15. ??This calculation may not be valid for patients with atypical muscle mass (very lean or obese), acute renal failure, and in patients with diabetic kidney disease. References: http://nkdep.nih.gov/resources/NKDEP_Suggestn4Labs_0606_508.pdf http://www.kidney.org/professionals/kls/pdf/faq_gfr.pdf Blood specimen (specimen) 07/30/2010 3:00 AM EST 07/30/2010 3:18 AM EST Chris Peoples MD CHEMISTRY ORDERABLES MCKENZIE RUSH * (ABNORMAL) REFLEX LAB-A-DIFF (07/29/2010 9:00 PM EST) Neutrophil % 85.6(H) 37.0 - 77.0 % CERNER MILLENNIUM Neutrophil Absolute 21.19(H) 1.50 - 8.00 x10(3)/mc L CERNER MILLENNIUM Lymph % 8.4(L) 20.0 - 50.0 % CERNER MILLENNIUM Lymphocytes Abs 2.1 1.2 - 5.2 x10(3)/mc L CERNER MILLENNIUM Monocyte % 5.3 2.0 - 12.0 % CERNER MILLENNIUM Monocyte Abs 1.3(H) 0.2 - 1.0 x10(3)/mc L CERNER MILLENNIUM Eos % 0.0 0.0 - 7.0 % CERNER MILLENNIUM Eosinophils Abs 0.0 0.0 - 0.5 x10(3)/mc L CERNER MILLENNIUM Basophil % 0.1 0.0 - 2.0 % CERNER MILLENNIUM Baso Absolute 0.0 0.0 - 0.2 x10(3)/mc L CERNER MILLENNIUM Immature Gran % 0.60 0.00 - 0.66 % CERNER MILLENNIUM Comment: Immature granulocytes(IG's)percentage and absolute count will include metamyelocytes, myelocytes, and promyelocytes. Blood smears from CBCs yielding IG's will be scanned manually for concordance. If this scan disagrees with the automated IG or if promyelocytes are noted, a manual differential will be performed. Immature Gran Absolute 0.15(H) 0.00 - 0.05 x10(3)/mc L CERNER MILLENNIUM Blood specimen (specimen) 07/29/2010 9:00 PM EST 07/29/2010 9:11 PM EST Chris Peoples MD HEMATOLOGY ORDERABLE S MCKENZIE VALDEZENNIUM * (ABNORMAL) CBC (07/29/2010 9:00 PM EST) White Blood Cell 24.8(H) 4.5 - 13.0 x10(3)/mc L CERNER MILLENNIUM Red Blood Cell 3.42(L) 4.10 - 5.10 x10(6)/mc L CERNER MILLENNIUM Hemoglobin 10.6(L) 12.0 - 16.0 gm/dL CERNER MILLENNIUM Hematocrit 30.5(L) 36.0 - 46.0 % CERNER MILLENNIUM Mean Cell Volume 89.2 76.0 - 98.0 fL CERNER MILLENNIUM Mean Cell Hemoglobin 31.0 25.0 - 35.0 pg CERNER MILLENNIUM Mean Cell Hemoglobin Concentration 34.8 32.0 - 36.5 gm/dL CERNER MILLENNIUM Platelet 251 145 - 370 x10(3)/mc L CERNER MILLENNIUM RDW Standard Deviation 44.8 35.0 - 46.0 fL CERNER MILLENNIUM RDW coefficient of variation 13.7 10.9 - 14.4 % CERNER MILLENNIUM Mean Platelet Volume 10.8 9.0 - 12.0 fL CERNER MILLENNIUM Blood specimen (specimen) 07/29/2010 9:00 PM EST 07/29/2010 9:11 PM EST Chris Peoples MD HEMATOLOGY ORDERABLE S MCKENZIE ELLISIUM * ASPARTATE AMINOTRANSFERASE (07/29/2010 9:00 PM EST) Aspartate Aminotransferase 17 5 - 30 unit/L CERNER MILLENNIUM Blood specimen (specimen) 07/29/2010 9:00 PM EST 07/29/2010 9:11 PM EST Chris Peoples MD CHEMISTRY ORDERABLES CERLISBETH VALDEZENNIUM * (ABNORMAL) CREATININE, SERUM (07/29/2010 9:00 PM EST) Creatinine 0.99(H) 0.20 - 0.70 mg/dL CERNER MILLENNIUM Est Glomerular Filtration Rate See note >=60 CERNER MILLENNIUM Comment: Calculated GFR not appropriate for patients less than 18 years of age. The National Kidney Disease Education Program (NKDEP) has recommended all laboratories report estimated GFR (eGFR) along with plasma creatinine measurements to assist you with recognition of early kidney disease. Caveats: ??Plasma creatinine should be at steady-state (unchanged within the past week). ??Patient age > = 18 years, and for Americans multiply eGFR by 1.2. At present, NKDEP does NOT recommend using the MDRD equation for drug dosing purposes and pharmacists should continue to use their current dosing methods. In addition, numerical eGFR values greater than 60 ml/min/1.73 square meters should be treated as > 60, and not an exact number due to greater inaccuracies at these higher values. Per NKDEP, they classify normal renal function as any GFR >60ml/min/1.73 square meters; chronic kidney disease when GFR <60, and renal failure when GFR <15. ??This calculation may not be valid for patients with atypical muscle mass (very lean or obese), acute renal failure, and in patients with diabetic kidney disease. References: http://nkdep.nih.gov/resources/NKDEP_Suggestn4Labs_0606_508.pdf http://www.kidney.org/professionals/kls/pdf/faq_gfr.pdf Blood specimen (specimen) 07/29/2010 9:00 PM EST 07/29/2010 9:11 PM EST Chris Peoples MD CHEMISTRY ORDERABLES Performing Organization Address [facility] Co de Phone Number MCKENZIE [employer] * REFLEX LAB-BLOOD GAS, ARTERIAL, CORD (07/29/2010 2:06 PM EST) pH, Cord Arterial 7.27 CERNER MILLENNIUM pCO2, Cord Arterial 49 mmHg CERNER MILLENNIUM pO2, Cord Arterial 7 mmHg CERNER MILLENNIUM Base Excess, Cord Arterial -4.6 mmol/L CERNER MILLENNIUM O2HB, Cord Arterial 5.9 % CERNER MILLENNIUM Blood Gas Source Cord Arterial CERNER MILLENNIUM Blood specimen (specimen) 07/29/2010 2:06 PM EST 07/29/2010 2:21 PM EST Chris Peoples MD CHEMISTRY ORDERABLES Performing Organization Address City/[facility] Co de Phone Number MCKENZIE [employer] * REFLEX LAB-BLOOD GAS, VENOUS, CORD (07/29/2010 2:06 PM EST) pH, Cord Venous 7.29 CERNER MILLENNIUM pCO2, Cord Venous 55 mmHg CERNER MILLENNIUM pO2, Cord Venous 17 mmHg CERNER MILLENNIUM Base Excess, Cord Venous -1.1 mmol/L CERNER MILLENNIUM O2HB, Cord Venous Not Perf % CERNER MILLENNIUM Comment:CLOTTED Blood Gas Source Cord Venous CERNER MILLENNIUM Blood specimen (specimen) 07/29/2010 2:06 PM EST 07/29/2010 2:20 PM EST Chris Peoples MD CHEMISTRY ORDERABLES CERNER MILLENNIUM * (ABNORMAL) REFLEX LAB-A-DIFF (07/29/2010 1:10 PM EST) Neutrophil % 86.6(H) 37.0 - 77.0 % CERNER MILLENNIUM Neutrophil Absolute 16.00(H) 1.50 - 8.00 x10(3)/mc L CERNER MILLENNIUM Lymph % 9.2(L) 20.0 - 50.0 % CERNER MILLENNIUM Lymphocytes Abs 1.7 1.2 - 5.2 x10(3)/mc L CERNER MILLENNIUM Monocyte % 3.1 2.0 - 12.0 % CERNER MILLENNIUM Monocyte Abs 0.6 0.2 - 1.0 x10(3)/mc L CERNER MILLENNIUM Eos % 0.0 0.0 - 7.0 % CERNER MILLENNIUM Eosinophils Abs 0.0 0.0 - 0.5 x10(3)/mc L CERNER MILLENNIUM Basophil % 0.1 0.0 - 2.0 % CERNER MILLENNIUM Baso Absolute 0.0 0.0 - 0.2 x10(3)/mc L CERNER MILLENNIUM Immature Gran % 1.00(H) 0.00 - 0.66 % CERNER MILLENNIUM Comment: Immature granulocytes(IG's)percentage and absolute count will include metamyelocytes, myelocytes, and promyelocytes. Blood smears from CBCs yielding IG's will be scanned manually for concordance. If this scan disagrees with the automated IG or if promyelocytes are noted, a manual differential will be performed. Immature Gran Absolute 0.19(H) 0.00 - 0.05 x10(3)/mc L CERNER MILLENNIUM Blood specimen (specimen) 07/29/2010 1:10 PM EST 07/29/2010 1:25 PM EST Chris Peoples MD HEMATOLOGY ORDERABLE S Performing Organization Address City/[facility] Co de Phone Number CERNER MILLENNIUM * ASPARTATE AMINOTRANSFERASE (07/29/2010 1:10 PM EST) Aspartate Aminotransferase 19 5 - 30 unit/L CERNER MILLENNIUM Blood specimen (specimen) 07/29/2010 1:10 PM EST 07/29/2010 1:25 PM EST Chris Peoples MD CHEMISTRY ORDERABLES Performing Organization Address [facility] [facility] de Phone Number CERNER MILLENNIUM * (ABNORMAL) CBC (07/29/2010 1:10 PM EST) White Blood Cell 18.5(H) 4.5 - 13.0 x10(3)/mc L CERNER MILLENNIUM Red Blood Cell 3.87(L) 4.10 - 5.10 x10(6)/mc L CERNER MILLENNIUM Hemoglobin 11.8(L) 12.0 - 16.0 gm/dL CERNER MILLENNIUM Hematocrit 34.3(L) 36.0 - 46.0 % CERNER MILLENNIUM Mean Cell Volume 88.6 76.0 - 98.0 fL CERNER MILLENNIUM Mean Cell Hemoglobin 30.5 25.0 - 35.0 pg CERNER MILLENNIUM Mean Cell Hemoglobin Concentration 34.4 32.0 - 36.5 gm/dL CERNER MILLENNIUM Platelet 264 145 - 370 x10(3)/mc L CERNER MILLENNIUM RDW Standard Deviation 44.7 35.0 - 46.0 fL CERNER MILLENNIUM RDW coefficient of variation 13.9 10.9 - 14.4 % CERNER MILLENNIUM Mean Platelet Volume 10.9 9.0 - 12.0 fL CERNER MILLENNIUM Blood specimen (specimen) 07/29/2010 1:10 PM EST 07/29/2010 1:25 PM EST Chris Peoples MD HEMATOLOGY ORDERABLE S Performing Organization Address City/State/[facility] Co de Phone Number MCKENZIE RUSH * (ABNORMAL) CREATININE, SERUM (07/29/2010 1:10 PM EST) Creatinine 0.76(H) 0.20 - 0.70 mg/dL CERNER MILLENNIUM Est Glomerular Filtration Rate See note >=60 CERNER MILLENNIUM Comment: Calculated GFR not appropriate for patients less than 18 years of age. The National Kidney Disease Education Program (NKDEP) has recommended all laboratories report estimated GFR (eGFR) along with plasma creatinine measurements to assist you with recognition of early kidney disease. Caveats: ??Plasma creatinine should be at steady-state (unchanged within the past week). ??Patient age > = 18 years, and for Americans multiply eGFR by 1.2. At present, NKDEP does NOT recommend using the MDRD equation for drug dosing purposes and pharmacists should continue to use their current dosing methods. In addition, numerical eGFR values greater than 60 ml/min/1.73 square meters should be treated as > 60, and not an exact number due to greater inaccuracies at these higher values. Per NKDEP, they classify normal renal function as any GFR >60ml/min/1.73 square meters; chronic kidney disease when GFR <60, and renal failure when GFR <15. ??This calculation may not be valid for patients with atypical muscle mass (very lean or obese), acute renal failure, and in patients with diabetic kidney disease. References: http://nkdep.nih.gov/resources/NKDEP_Suggestn4Labs_0606_508.pdf http://www.kidney.org/professionals/kls/pdf/faq_gfr.pdf Blood specimen (specimen) 07/29/2010 1:10 PM EST 07/29/2010 1:25 PM EST Chris Peoples MD CHEMISTRY ORDERABLES MCKENZIE RUSH * BUN (07/29/2010 1:10 PM EST) Blood Urea Nitrogen 17 10 - 20 mg/dL MCKENZIE RUSH Blood specimen (specimen) 07/29/2010 1:10 PM EST 07/29/2010 1:25 PM EST Chris Peoples MD CHEMISTRY ORDERABLES Performing Organization Address [facility]/State/ZIP Co de Phone Number MCKENZIE RUSH * PATHOLOGY SURGICAL PATHOLOGY FINAL REPORT (07/29/2010 10:16 AM EST) Surgical Pathology Report ? [facility] ? Provider: ?? QI ANDRADE ?Pt. Name: ?? SHAWN ALFLEUR ? Acc #: ?[id number] ?Pt. ? Col Date: ?? 07/29/2010 ? /Sex: ?1995,(14 years),Female ? Rec Date: ?? 07/30/2010 ? LOC: ?BP ? SURGICAL PATHOLOGY ? ---Pathologic Diagnosis--- ? placenta, cord and membranes: ? Negative for chorioamnionitis or funisitis. ? Accelerated villus maturation, consistent with preeclampsia. ? Infarct (small) present. ? CR-0 ? 08/03/10 ? KO ? 08/03/10 Verified by: ? Maggie Villafuerte MD ? Pathologist ? (Electronic Signature) ? The attending pathologist whose signature appears on this report has ? reviewed all diagnostic slides and has edited the gross and/or ? microscopic portion of the report in rendering the final pathologic ? diagnosis. ? ---Microscopic Description--- ? Slides reviewed, microscopic description not recorded. ? ---Gross Description--- ? Labeled/Fixative: ? Labeled with the patient's name and medical ? record number, fresh. ? Qty/Size/Weight: ?Single, 15.0 x 13.0 x 1.5 cm, 155 g. ? Tissue Description: ?? [place] intact discoid placenta. ?Membranes: ? [place], semitransparent with 100% marginal insertion. ?Cord: ?5.5 x 1.0 cm; three vessels; eccentric insertion ? 4.5 cm from the nearest placental margin. ??Cord is ? [place] with reduced spiraling displaying a false knot 2.0 cm from the ? insertion site. ??Separate from the placental disc is an additional ? 16.0 x 1.0-cm segment of umbilical cord. ??This segment is canch[place] and ? congested with normal to slightly decreased spiraling and venous ? congestion. ? Surface: ? Purple, clear, with prominent umbilical vessels and ? no apparent gross lesions. ?Maternal Surface: ??Intact, red-brown with well-formed lobules and ? multiple central, yellow, plaque-like areas of ? thickening, varying from 1.0 cm to 2.8 cm. ?Parenchyma: ?The specimen is serially sectioned at 0.5-cm to ? 1.0-cm intervals. ??Sections show the maternal surface ? lesions to be centrally hemorrhagic, focally cystic, ? [facility] ? Provider: ?? QI ANDRADE ?Pt. Name: ?? SHAWN LAFLEUR ? Acc #: ?[id number] ?Pt. ? Col Date: ?? 07/29/2010 ? /Sex: ?1995,(14 years),Female ? Rec Date: ?? 07/30/2010 ? LOC: ?BP ? SURGICAL PATHOLOGY ? and laminated. ? Sections/Processing : ??Sections are submitted as follows: ??(1) membranes; ? (2) umbilical cord; (3) surface; (4) maternal ? surface; (5) parenchymal lesion. ??(R5) ??aje/SHB ? ---Clinical Information--- ? Specimen Submitted: ? A - Placenta ? Clinical History: ? 14 yo at 28 + 0/7 weeks admitted for severe eclampsia with evidence of ? growth retardation and with Doppler result of absent end diastolic ? flow. ??C/S due to nonreassuring heart rate ? Clinical Diagnosis: ? Not provided CERNER MILLENNIUM 07/29/2010 10:1 6 AM EST Qi Andrade MD PATHOLOGY/CYTOLOGY O RDERABLES MCKENZIE VLADEZENNIUM * (ABNORMAL) REFLEX LAB-A-DIFF (07/29/2010 5:00 AM EST) Neutrophil % 89.5(H) 37.0 - 77.0 % CERNER MILLENNIUM Neutrophil Absolute 16.49(H) 1.50 - 8.00 x10(3)/mc L CERNER MILLENNIUM Lymph % 8.1(L) 20.0 - 50.0 % CERNER MILLENNIUM Lymphocytes Abs 1.5 1.2 - 5.2 x10(3)/mc L CERNER MILLENNIUM Monocyte % 1.5(L) 2.0 - 12.0 % CERNER MILLENNIUM Monocyte Abs 0.3 0.2 - 1.0 x10(3)/mc L CERNER MILLENNIUM Eos % 0.0 0.0 - 7.0 % CERNER MILLENNIUM Eosinophils Abs 0.0 0.0 - 0.5 x10(3)/mc L CERNER MILLENNIUM Basophil % 0.1 0.0 - 2.0 % CERNER MILLENNIUM Baso Absolute 0.0 0.0 - 0.2 x10(3)/mc L CERNER MILLENNIUM Immature Gran % 0.80(H) 0.00 - 0.66 % CERNER MILLENNIUM Comment: Immature granulocytes(IG's)percentage and absolute count will include metamyelocytes, myelocytes, and promyelocytes. Blood smears from CBCs yielding IG's will be scanned manually for concordance. If this scan disagrees with the automated IG or if promyelocytes are noted, a manual differential will be performed. Immature Gran Absolute 0.15(H) 0.00 - 0.05 x10(3)/mc L CERNER MILLENNIUM Blood specimen (specimen) 07/29/2010 5:00 AM EST 07/29/2010 5:21 AM EST Don Boudreaux MD HEMATOLOGY ORDERABLE S Performing Organization Address City/State/[facility] Co de Phone Number CERNER MILLENNIUM * (ABNORMAL) CBC (07/29/2010 5:00 AM EST) White Blood Cell 18.4(H) 4.5 - 13.0 x10(3)/mc L CERNER MILLENNIUM Red Blood Cell 3.86(L) 4.10 - 5.10 x10(6)/mc L CERNER MILLENNIUM Hemoglobin 11.7(L) 12.0 - 16.0 gm/dL CERNER MILLENNIUM Hematocrit 33.7(L) 36.0 - 46.0 % CERNER MILLENNIUM Mean Cell Volume 87.3 76.0 - 98.0 fL CERNER MILLENNIUM Mean Cell Hemoglobin 30.3 25.0 - 35.0 pg CERNER MILLENNIUM Mean Cell Hemoglobin Concentration 34.7 32.0 - 36.5 gm/dL CERNER MILLENNIUM Platelet 253 145 - 370 x10(3)/mc L CERNER MILLENNIUM RDW Standard Deviation 43.1 35.0 - 46.0 fL CERNER MILLENNIUM RDW coefficient of variation 13.6 10.9 - 14.4 % CERNER MILLENNIUM Mean Platelet Volume 11.2 9.0 - 12.0 fL CERNER MILLENNIUM Blood specimen (specimen) 07/29/2010 5:00 AM EST 07/29/2010 5:21 AM EST Don Boudreaux MD HEMATOLOGY ORDERABLE S CERNER MILLENNIUM * ASPARTATE AMINOTRANSFERASE (07/29/2010 5:00 AM EST) Aspartate Aminotransferase 23 5 - 30 unit/L CERNER MILLENNIUM Blood specimen (specimen) 07/29/2010 5:00 AM EST 07/29/2010 5:17 AM EST Don Boudreaux MD CHEMISTRY ORDERABLES MCKENZIE RUSH * (ABNORMAL) CREATININE, SERUM (07/29/2010 5:00 AM EST) Creatinine 0.72(H) 0.20 - 0.70 mg/dL CERNER MILLENNIUM Est Glomerular Filtration Rate See note >=60 CERNER MILLENNIUM Comment: Calculated GFR not appropriate for patients less than 18 years of age. The National Kidney Disease Education Program (NKDEP) has recommended all laboratories report estimated GFR (eGFR) along with plasma creatinine measurements to assist you with recognition of early kidney disease. Caveats: ??Plasma creatinine should be at steady-state (unchanged within the past week). ??Patient age > = 18 years, and for Americans multiply eGFR by 1.2. At present, NKDEP does NOT recommend using the MDRD equation for drug dosing purposes and pharmacists should continue to use their current dosing methods. In addition, numerical eGFR values greater than 60 ml/min/1.73 square meters should be treated as > 60, and not an exact number due to greater inaccuracies at these higher values. Per NKDEP, they classify normal renal function as any GFR >60ml/min/1.73 square meters; chronic kidney disease when GFR <60, and renal failure when GFR <15. ??This calculation may not be valid for patients with atypical muscle mass (very lean or obese), acute renal failure, and in patients with diabetic kidney disease. References: http://nkdep.nih.gov/resources/NKDEP_Suggestn4Labs_0606_508.pdf http://www.kidney.org/professionals/kls/pdf/faq_gfr.pdf Blood specimen (specimen) 07/29/2010 5:00 AM EST 07/29/2010 5:17 AM EST Don Boudreaux MD CHEMISTRY ORDERABLES MCKENZIE RUSH * (ABNORMAL) REFLEX LAB-A-DIFF (07/28/2010 11:15 PM EST) Neutrophil % 88.2(H) 37.0 - 77.0 % CERNER MILLENNIUM Neutrophil Absolute 14.82(H) 1.50 - 8.00 x10(3)/mc L CERNER MILLENNIUM Lymph % 8.1(L) 20.0 - 50.0 % CERNER MILLENNIUM Lymphocytes Abs 1.4 1.2 - 5.2 x10(3)/mc L CERNER MILLENNIUM Monocyte % 2.8 2.0 - 12.0 % CERNER MILLENNIUM Monocyte Abs 0.5 0.2 - 1.0 x10(3)/mc L CERNER MILLENNIUM Eos % 0.0 0.0 - 7.0 % CERNER MILLENNIUM Eosinophils Abs 0.0 0.0 - 0.5 x10(3)/mc L CERNER MILLENNIUM Basophil % 0.1 0.0 - 2.0 % CERNER MILLENNIUM Baso Absolute 0.0 0.0 - 0.2 x10(3)/mc L CERNER MILLENNIUM Immature Gran % 0.80(H) 0.00 - 0.66 % CERNER MILLENNIUM Comment: Immature granulocytes(IG's)percentage and absolute count will include metamyelocytes, myelocytes, and promyelocytes. Blood smears from CBCs yielding IG's will be scanned manually for concordance. If this scan disagrees with the automated IG or if promyelocytes are noted, a manual differential will be performed. Immature Gran Absolute 0.13(H) 0.00 - 0.05 x10(3)/mc L CERNER MILLENNIUM Blood specimen (specimen) 07/28/2010 11:15 PM EST 07/28/2010 11:27 PM EST Don Boudreaux MD HEMATOLOGY ORDERABLE S MCKENZIE ELLISIUM * (ABNORMAL) CBC (07/28/2010 11:15 PM EST) White Blood Cell 16.8(H) 4.5 - 13.0 x10(3)/mc L CERNER MILLENNIUM Red Blood Cell 3.67(L) 4.10 - 5.10 x10(6)/mc L CERNER MILLENNIUM Hemoglobin 11.2(L) 12.0 - 16.0 gm/dL CERNER MILLENNIUM Hematocrit 32.3(L) 36.0 - 46.0 % CERNER MILLENNIUM Mean Cell Volume 88.0 76.0 - 98.0 fL CERNER MILLENNIUM Mean Cell Hemoglobin 30.5 25.0 - 35.0 pg CERNER MILLENNIUM Mean Cell Hemoglobin Concentration 34.7 32.0 - 36.5 gm/dL CERNER MILLENNIUM Platelet 215 145 - 370 x10(3)/mc L CERNER MILLENNIUM RDW Standard Deviation 44.0 35.0 - 46.0 fL CERNER MILLENNIUM RDW coefficient of variation 13.6 10.9 - 14.4 % CERNER MILLENNIUM Mean Platelet Volume 11.3 9.0 - 12.0 fL CERNER MILLENNIUM Blood specimen (specimen) 07/28/2010 11:15 PM EST 07/28/2010 11:27 PM EST Don Boudreaux MD HEMATOLOGY ORDERABLE S Performing Organization Address City/[facility] Co de Phone Number [facility] * ASPARTATE AMINOTRANSFERASE (07/28/2010 11:15 PM EST) Aspartate Aminotransferase 21 5 - 30 unit/L CERNER MILLENNIUM Blood specimen (specimen) 07/28/2010 11:15 PM EST 07/28/2010 11:27 PM EST Don Boudreaux MD CHEMISTRY ORDERABLES Performing Organization Address City/[facility]/ZIP Co de Phone Number [facility] * (ABNORMAL) CREATININE, SERUM (07/28/2010 11:15 PM EST) Creatinine 0.80(H) 0.20 - 0.70 mg/dL CERNER MILLENNIUM Est Glomerular Filtration Rate See note >=60 CERNER MILLENNIUM Comment: Calculated GFR not appropriate for patients less than 18 years of age. The National Kidney Disease Education Program (NKDEP) has recommended all laboratories report estimated GFR (eGFR) along with plasma creatinine measurements to assist you with recognition of early kidney disease. Caveats: ??Plasma creatinine should be at steady-state (unchanged within the past week). ??Patient age > = 18 years, and for Americans multiply eGFR by 1.2. At present, NKDEP does NOT recommend using the MDRD equation for drug dosing purposes and pharmacists should continue to use their current dosing methods. In addition, numerical eGFR values greater than 60 ml/min/1.73 square meters should be treated as > 60, and not an exact number due to greater inaccuracies at these higher values. Per NKDEP, they classify normal renal function as any GFR >60ml/min/1.73 square meters; chronic kidney disease when GFR <60, and renal failure when GFR <15. ??This calculation may not be valid for patients with atypical muscle mass (very lean or obese), acute renal failure, and in patients with diabetic kidney disease. References: http://nkdep.nih.gov/resources/NKDEP_Suggestn4Labs_0606_508.pdf http://www.kidney.org/professionals/kls/pdf/faq_gfr.pdf Blood specimen (specimen) 07/28/2010 11:15 PM EST 07/28/2010 11:27 PM EST Don Boudreaux MD CHEMISTRY ORDERABLES Performing Organization Address [facility] de Phone Number [facility] * (ABNORMAL) MAGNESIUM (07/28/2010 5:35 PM EST) Magnesium 2.93(AA) 0.69 - 1.07 mmol/L [facility] Comment: Result rechecked. KATHERINE Gennaro LePlante: 07/28/10 18:36 Blood specimen (specimen) 07/28/2010 5:35 PM EST 07/28/2010 6:06 PM EST Severo Carreon MD CHEMISTRY ORDERAB LES Performing Organization Address [facility] Co de Phone Number [facility] * (ABNORMAL) REFLEX LAB-A-DIFF (07/28/2010 5:35 PM EST) Neutrophil % 86.5(H) 37.0 - 77.0 % CERNER MILLENNIUM Neutrophil Absolute 18.77(H) 1.50 - 8.00 x10(3)/mc L CERNER MILLENNIUM Lymph % 8.8(L) 20.0 - 50.0 % CERNER MILLENNIUM Lymphocytes Abs 1.9 1.2 - 5.2 x10(3)/mc L CERNER MILLENNIUM Monocyte % 3.7 2.0 - 12.0 % CERNER MILLENNIUM Monocyte Abs 0.8 0.2 - 1.0 x10(3)/mc L CERNER MILLENNIUM Eos % 0.0 0.0 - 7.0 % CERNER MILLENNIUM Eosinophils [...] differential will be performed. Immature Gran Absolute 0.20(H) 0.00 - 0.05 x10(3)/mc L CERNER MILLENNIUM Blood specimen (specimen) 07/28/2010 5:35 PM EST 07/28/2010 5:58 PM EST E Almazkristen Carreon MD HEMATOLOGY ORDERA BLES MCKENZIE RUSH * (ABNORMAL) CBC (07/28/2010 5:35 PM EST) White Blood Cell 21.7(H) 4.5 - 13.0 x10(3)/mc L CERNER MILLENNIUM Red Blood Cell 4.00(L) 4.10 - 5.10 x10(6)/mc L CERNER MILLENNIUM Hemoglobin 12.2 12.0 - 16.0 gm/dL CERNER MILLENNIUM Hematocrit 34.6(L) 36.0 - 46.0 % CERNER MILLENNIUM Mean Cell Volume 86.5 76.0 - 98.0 fL CERNER MILLENNIUM Mean Cell Hemoglobin 30.5 25.0 - 35.0 pg CERNER MILLENNIUM Mean Cell Hemoglobin Concentration 35.3 32.0 - 36.5 gm/dL CERNER MILLENNIUM Platelet 241 145 - 370 x10(3)/mc L CERNER MILLENNIUM RDW Standard Deviation 42.1 35.0 - 46.0 fL CERNER MILLENNIUM RDW coefficient of variation 13.4 10.9 - 14.4 % CERNER MILLENNIUM Mean Platelet Volume 11.2 9.0 - 12.0 fL CERNER MILLENNIUM Blood specimen (specimen) 07/28/2010 5:35 PM EST 07/28/2010 5:58 PM EST E Almaz Carreon MD HEMATOLOGY ORDERA BLES [facility] * ASPARTATE AMINOTRANSFERASE (07/28/2010 5:35 PM EST) Aspartate Aminotransferase 18 5 - 30 unit/L [facility] MILLENNIUM Blood specimen (specimen) 07/28/2010 5:35 PM EST 07/28/2010 5:57 PM EST E Almaz Carreon MD CHEMISTRY ORDERAB LES [facility] * (ABNORMAL) CREATININE, SERUM (07/28/2010 5:35 PM EST) Creatinine 0.73(H) 0.20 - 0.70 mg/dL CERNER MILLENNIUM Est Glomerular Filtration Rate See note >=60 CERNER MILLENNIUM Comment: Calculated GFR not appropriate for patients less than 18 years of age. The National Kidney Disease Education Program (NKDEP) has recommended all laboratories report estimated GFR (eGFR) along with plasma creatinine measurements to assist you with recognition of early kidney disease. Caveats: ??Plasma creatinine should be at steady-state (unchanged within the past week). ??Patient age > = 18 years, and for Americans multiply eGFR by 1.2. At present, NKDEP does NOT recommend using the MDRD equation for drug dosing purposes and pharmacists should continue to use their current dosing methods. In addition, numerical eGFR values greater than 60 ml/min/1.73 square meters should be treated as > 60, and not an exact number due to greater inaccuracies at these higher values. Per NKDEP, they classify normal renal function as any GFR >60ml/min/1.73 square meters; chronic kidney disease when GFR <60, and renal failure when GFR <15. ??This calculation may not be valid for patients with atypical muscle mass (very lean or obese), acute renal failure, and in patients with diabetic kidney disease. References: http://nkdep.nih.gov/resources/NKDEP_Suggestn4Labs_0606_508.pdf http://www.kidney.org/professionals/kls/pdf/faq_gfr.pdf Blood specimen (specimen) 07/28/2010 5:35 PM EST 07/28/2010 5:57 PM EST E Almaz Carreon MD CHEMISTRY ORDERAB LES [facility] * (ABNORMAL) CREATININE, SERUM (07/28/2010 9:20 AM EST) Creatinine 0.82(H) 0.20 - 0.70 mg/dL CERNER MILLENNIUM Est Glomerular Filtration Rate See note >=60 CERNER [facility] Comment: Calculated GFR not appropriate for patients less than 18 years of age. The National Kidney Disease Education Program (NKDEP) has recommended all laboratories report estimated GFR (eGFR) along with plasma creatinine measurements to assist you with recognition of early kidney disease. Caveats: ??Plasma creatinine should be at steady-state (unchanged within the past week). ??Patient age > = 18 years, and for Americans multiply eGFR by 1.2. At present, NKDEP does NOT recommend using the MDRD equation for drug dosing purposes and pharmacists should continue to use their current dosing methods. In addition, numerical eGFR values greater than 60 ml/min/1.73 square meters should be treated as > 60, and not an exact number due to greater inaccuracies at these higher values. Per NKDEP, they classify normal renal function as any GFR >60ml/min/1.73 square meters; chronic kidney disease when GFR <60, and renal failure when GFR <15. ??This calculation may not be valid for patients with atypical muscle mass (very lean or obese), acute renal failure, and in patients with diabetic kidney disease. References: http://nkdep.nih.gov/resources/NKDEP_Suggestn4Labs_0606_508.pdf http://www.kidney.org/professionals/kls/pdf/faq_gfr.pdf Blood specimen (specimen) 07/28/2010 9:20 AM EST 07/28/2010 9:28 AM EST Roxanne Graham MD CHEMISTRY ORDERABLES Performing Organization Address [facility] de Phone Number MCKENZIE COURTNEYAUDI * ASPARTATE AMINOTRANSFERASE (07/28/2010 9:20 AM EST) Aspartate Aminotransferase Not Perf 5 - 30 unit/L MCKENZIE RUSH Comment: Unable to quantitate due to sample hemolysis. ??Sample redraw suggested. BP notified 07/28/10 10:00 Blood specimen (specimen) 07/28/2010 9:20 AM EST 07/28/2010 9:28 AM EST Roxanne Graham MD CHEMISTRY ORDERABLES Performing Organization Address [facility] de Phone Number MCKENZIE RUSH * BUN (07/28/2010 9:20 AM EST) Blood Urea Nitrogen 15 10 - 20 mg/dL MCKENZIE RUSH Blood specimen (specimen) 07/28/2010 9:20 AM EST 07/28/2010 9:28 AM EST Roxanne Graham MD CHEMISTRY ORDERABLES Performing Organization Address [facility] de Phone Number CERNER MILLENNIUM * URINE CULTURE (07/28/2010 4:10 AM EST) Urine Culture ? Patient Name: SHAWN LAFLEUR ?Ordered By: KIMANI SOLIMAN ? MR#: [id number] ?LOC: ??BP ? /Sex: ?? 4 (14 years), ? Female ? PROCEDURE: Urine Culture ?SOURCE: T ICa ? COLLECTED: 07/28/2010 04:10 ? STARTED: 07/28/2010 08:19 ? FINAL REPORT ? Final Report ? Verified: 07:56 ? No growth (Less than 1,000 cfu/ml). ? ____ MCKENZIE RUSH Urine specimen obtained via indwelling urinary catheter (specimen) 07/28/2010 4:10 AM EST 07/28/2010 8:19 AM EST Kimani Soliman MD MICROBIOLOGY - GENER AL ORDERABLES MCKENZIE RUSH * (ABNORMAL) URINALYSIS WITH MICROSCOPIC (07/28/2010 4:10 AM EST) Glucose, Urine Dipstick Negative Negative mg/dL CERNER MILLENNIUM Protein, Urine Dipstick 300(A) Neg mg/dL CERNER MILLENNIUM Bilirubin, Urine Dipstick Negative Negative mg/dL CERNER MILLENNIUM Urobilinogen, Urine Dipstick Normal mg/dL CERNER MILLENNIUM pH, Urn (dipstick) 6.0 5.0 - 8.0 CERNER MILLENNIUM Blood, Urine Dipstick Moderate mg/dL CERNER MILLENNIUM Ketone, Urine Dipstick Negative mg/dL CERNER MILLENNIUM Nitrite, Urine Dipstick Negative CERNER MILLENNIUM Leukocytes, Urine Dipstick Negative mcL CERNER MILLENNIUM Appearance, Urine Dipstick Hazy(A) Clear CERNER MILLENNIUM Specific Bruce Urine Automated 1.029 1.002 - 1.030 CERNER MILLENNIUM Color, Urine Dipstick Yellow Yellow CERNER MILLENNIUM RBC, Urine 45(H) 0 - 4 /HPF CERNER MILLENNIUM WBC, Urine 6(H) 0 - 5 /HPF CERNER MILLENNIUM Squamous Epithelial Cells, Urine <1 <=4 /HPF CERNER MILLENNIUM Transitional Epithelial Cells, Urine 1 <=1 /HPF CERNER MILLENNIUM Hyaline Casts, Urine 178(H) 0 - 2 /LPF CERNER MILLENNIUM Urine specimen (specimen) 07/28/2010 4:10 AM EST 07/28/2010 4:32 AM EST E Almaz Carreon MD URINE ORDERABLES [facility] * STREP B SCREEN, VAGINAL / RECTAL (07/28/2010 2:24 AM EST) Group B Streptococcus Culture ? Patient Name: SHAWN LAFLEUR ?Ordered By: KIMANI SOLIMAN ? MR#: [id number] ?LOC: ??BP ? /Sex: ??1995 (14 years), ? Female ? PROCEDURE: Group B Streptococcus Culture ?SOURCE: Vag/Rectal ? COLLECTED: 07/28/2010 02:24 ? STARTED: 07/28/2010 08:23 ? FINAL REPORT ? Final Report ? Verified: 011 09:42 ? No Group B Streptococci isolated ? PRELIMINARY REPORT ? Preliminary Report ? Verified: 07:25 ? Culture in progress ? CERNER CALEBIUM Pooled specimen from vaginal introitus and rectal swab (specimen) 07/28/2010 2:24 AM EST 07/28/2010 8:23 AM EST Kimani Soliman MD MICROBIOLOGY - GENER AL ORDERABLES Performing Organization Address [facility] de Phone Number MCKENZIE RUSH * REFLEX LAB-SCAN (07/28/2010 2:00 AM EST) Plat estimate Normal MCKENZIE ELLISIUM RBC Morphology Normal CERNE R MILLENNIUM Blood specimen (specimen) 07/28/2010 2:00 AM EST 07/28/2010 2:14 AM EST E Almaz Carreon MD HEMATOLOGY ORDERA BLES Performing Organization Address [facility] de Phone Number MCKENZIE ELLISIUM * (ABNORMAL) REFLEX LAB-A-DIFF (07/28/2010 2:00 AM EST) Neutrophil % 92.7(H) 37.0 - 77.0 % CERNER MILLENNIUM Neutrophil Absolute 19.95(H) 1.50 - 8.00 x10(3)/mc L CERNER MILLENNIUM Lymph % 6.0(L) 20.0 - 50.0 % CERNER MILLENNIUM Lymphocytes Abs 1.3 1.2 - 5.2 x10(3)/mc L CERNER MILLENNIUM Monocyte % 0.5(L) 2.0 - 12.0 % CERNER MILLENNIUM Monocyte Abs 0.1(L) 0.2 - 1.0 x10(3)/mc L CERNER MILLENNIUM Eos % 0.0 0.0 - 7.0 % CERNER MILLENNIUM Eosinophils [...] differential will be performed. Immature Gran Absolute 0.16(H) 0.00 - 0.05 x10(3)/mc L MCKENZIE ELLISIUM Blood specimen (specimen) 07/28/2010 2:00 AM EST 07/28/2010 2:14 AM EST E Almaz Carreon MD HEMATOLOGY ORDERA BLES MCKENZIE RUSH * REFLEX LAB-ANTIBODY SCREEN (07/28/2010 2:00 AM EST) Ab Screen Interp Negative MCKENZIE ELLISIUM Expires at [id number] on: [id number] MCKENZIE ELLISIUM Blood specimen (specimen) 07/28/2010 2:00 AM EST 07/28/2010 2:14 AM EST E Almaz Carreon MD BLOOD BANK LAB OR DERABLES Performing Organization Address [facility] Phone Number [facility] * REFLEX LAB-ABO/RH (07/28/2010 2:00 AM EST) ABORH Type A Pos [facility] Blood specimen (specimen) 07/28/2010 2:00 AM EST 07/28/2010 2:14 AM EST E Almaz Carreon MD BLOOD BANK LAB OR DERABLES Performing Organization Address [facility] Phone Number [facility] * FIBRINOGEN (07/28/2010 2:00 AM EST) Fibrinogen 422 200 - 470 mg/dL [facility] Blood specimen (specimen) 07/28/2010 2:00 AM EST 07/28/2010 2:14 AM EST E Almaz Carreon MD HEMATOLOGY ORDERA BLES Performing Organization Address [facility] Phone Number [facility] * (ABNORMAL) APTT (07/28/2010 2:00 AM EST) Partial Thromboplastin Time 20(L) 25 - [address] [facility] Comment: Recommended therapeutic PTT range for full dose unfractionated heparin is 80-114 seconds. Blood specimen (specimen) 07/28/2010 2:00 AM EST 07/28/2010 2:14 AM EST E Almaz Carreon MD HEMATOLOGY ORDERA BLES Performing Organization Address [facility] Phone Number [facility] * PROTIME-INR (07/28/2010 2:00 AM EST) Prothrombin Time 12.8 12.3 - 14.[address] [facility] Comment: [facility] Transfusion Committee Guidelines: INR less than 2.0, PTT less than OR equal to 43.5 seconds, or Fibrinogen greater than or equal to 100 mg/dl indicate adequate procoagulant activity for hemostasis in patients without underlying bleeding disorders. International Normalization Ratio 0.9 0.9 - 1.1 CERNER MILLENNIUM Blood specimen (specimen) 07/28/2010 2:00 AM EST 07/28/2010 2:14 AM EST E Almaz Carreon MD HEMATOLOGY ORDERA BLES [facility] * (ABNORMAL) CBC (07/28/2010 2:00 AM EST) White Blood Cell 21.6(H) 4.5 - 13.0 x10(3)/mcL CERNER MILLENNIUM Red Blood Cell 4.29 4.10 - 5.10 x10(6)/mcL CERNER MILLENNIUM Hemoglobin 13.1 12.0 - 16.0 gm/dL CERNER MILLENNIUM Hematocrit 37.5 36.0 - 46.0 % CERNER MILLENNIUM Platelet 195 145 - 370 x10(3)/mcL CERNER MILLENNIUM RDW Standard Deviation 42.0 35.0 - 46.0 fL CERNER MILLENNIUM RDW coefficient of variation 13.2 10.9 - 14.4 % CERNER MILLENNIUM Mean Platelet Volume 11.8 9.0 - 12.0 fL CERNER MILLENNIUM Blood specimen (specimen) 07/28/2010 2:00 AM EST 07/28/2010 2:14 AM EST E Almaz Carreon MD HEMATOLOGY ORDERA BLES Performing Organization Address City/[facility]/ZIP Co de Phone Number CERLISBETH ELLISIUM * (ABNORMAL) CREATININE, SERUM (07/28/2010 2:00 AM EST) Creatinine 0.82(H) 0.20 - 0.70 mg/dL CERNER MILLENNIUM Est Glomerular Filtration Rate See note >=60 CERNER MILLENNIUM Comment: Calculated GFR not appropriate for patients less than 18 years of age. The National Kidney Disease Education Program (NKDEP) has recommended all laboratories report estimated GFR (eGFR) along with plasma creatinine measurements to assist you with recognition of early kidney disease. Caveats: ??Plasma creatinine should be at steady-state (unchanged within the past week). ??Patient age > = 18 years, and for Americans multiply eGFR by 1.2. At present, NKDEP does NOT recommend using the MDRD equation for drug dosing purposes and pharmacists should continue to use their current dosing methods. In addition, numerical eGFR values greater than 60 ml/min/1.73 square meters should be treated as > 60, and not an exact number due to greater inaccuracies at these higher values. Per NKDEP, they classify normal renal function as any GFR >60ml/min/1.73 square meters; chronic kidney disease when GFR <60, and renal failure when GFR <15. ??This calculation may not be valid for patients with atypical muscle mass (very lean or obese), acute renal failure, and in patients with diabetic kidney disease. References: http://nkdep.nih.gov/resources/NKDEP_Suggestn4Labs_0606_508.pdf http://www.kidney.org/professionals/kls/pdf/faq_gfr.pdf Blood specimen (specimen) 07/28/2010 2:00 AM EST 07/28/2010 2:14 AM EST E Almaz Carreon MD CHEMISTRY ORDERAB LES [facility] * (ABNORMAL) HEPATIC FUNCTION PANEL (07/28/2010 2:00 AM EST) Protein, Total 5.6(L) 6.4 - 8.3 gm/dL CERNER MILLENNIUM Albumin 3.0(L) 3.2 - 5.2 gm/dL CERNER MILLENNIUM Aspartate Aminotransferase 22 5 - 30 unit/L CERNER MILLENNIUM Alanine Aminotransferase 23 0 - 25 unit/L CERNER MILLENNIUM Alkaline Phosphatase 124 55 - 140 unit/L CERNER MILLENNIUM Bilirubin, Total 0.1 <=1.0 mg/dL CERNER MILLENNIUM Bilirubin, Direct 0.1 0.0 - 0.3 mg/dL CERNER MILLENNIUM Blood specimen (specimen) 07/28/2010 2:00 AM EST 07/28/2010 2:14 AM EST E Almaz Lauri MAGUIRE CHEMISTRY ORDERAB LES [facility] documented in this encounter Visit Diagnoses Not on filedocumented in this encounter Active and Recently Administered Medications Care Teams Mine Inspector Federal Relationship Specialty Start Date End Date Fernando Lomeli MD [address] [place] [address] PCP - General 07/27/10 11/29/12 documented as of this encounter
--- OUTSIDE RECORDS SUMMARY | 2024-06-26 16:47 | XMS_ITS | Encounter Summary ---
Author Organization [facility] Address [facility] [place] [address] Care Team Providers Care Manager Sql Name Role Phone Unknown Primary Care Provider Unavailabl e Encounter Details Date Type Department Care Team (Late st Contact Info) Description 07/28/2010 Orders Only Obstetrics [place] [address] John Andrade MD [facility] OBSTETRICS [place] [address] Social History Tobacco Use Types Packs/Day Years Used Date Smoking Tobacco: Never Assessed Comments Yes Sex and Gender Information Value Date Recorded Sex Assigned at Not on file Gender Identity Not on file Sexual Orientation Not on file documented as of this encounter Plan of Treatment Not on file documented as of this encounter Procedures Procedure Name Priority Date/Time Associated Diagnosis Comments SURGICAL PATHOLOGY REPORT Routine 07/29/2010 10:16 AM EST documented in this encounter Results * Surgical Pathology Report (07/29/2010 10:16 AM EST) Surgical Pathology Report [id number] ? Location: ; BP04; A The signing pathologist has (i) examined the relevant preparation(s) for the specimen(s) and (ii) rendered or confirmed the diagnosis(es). . ?Pathology Surgical Pathology Final Report Clinical Information Specimen Submitted: A - Placenta Clinical History: 14 yo at 28 + 0/7 weeks admitted for severe eclampsia with evidence of growth retardation and with Doppler result of absent end diastolic flow. ??C/S due to nonreassuring heart rate Clinical Diagnosis: Not provided Gross Description Labeled/Fixative: ? Labeled with the patient's name and medical ?record number, fresh. Qty/Size/Weight: ?Single, 15.0 x 13.0 x 1.5 cm, 155 g. Tissue Description: ?? [place]agne intact discoid placenta. ?? Membranes: ? [place], semitransparent with 100% marginal insertion. ?? Cord: ?5.5 x 1.0 cm; three vessels; eccentric insertion ?4.5 cm from the nearest placental margin. ??Cord is canchola with reduced spiraling displaying a false knot 2.0 cm from the insertion site. ??Separate from the placental disc is an additional 16.0 x 1.0-cm segment of umbilical cord. ??This segment is canchola and congested with normal to slightly decreased spiraling and venous congestion. ?? Surface: ? Purple, clear, with prominent umbilical vessels and ?no apparent gross lesions. ?? Maternal Surface: ??Intact, red-brown with well-formed lobules and ?multiple central, yellow, plaque-like areas of ?thickening, varying from 1.0 cm to 2.8 cm. ?? Parenchyma: ?The specimen is serially sectioned at 0.5-cm to ?1.0-cm intervals. ??Sections show the maternal surface ?lesions to be centrally hemorrhagic, focally cystic, ?and laminated. Sections/Processing : ??Sections are submitted as follows: ??(1) membranes; ?(2) umbilical cord; (3) surface; (4) maternal ?surface; (5) parenchymal lesion. ??(R5) ??aje/SHB Microscopic Description Slides reviewed, microscopic description not recorded. Diagnosis placenta, cord and membranes: Negative for chorioamnionitis or funisitis. Accelerated villus maturation, ?? consistent with ??preeclampsia. Infarct (small) present. . Diagnosis CR-0 08/03/10 KO 08/03/10 Verified by: ? Maggie Villafuerte MD ?Pathologist ?(Electronic Signature) The attending pathologist whose signature appears on this report has reviewed all diagnostic slides and has edited the gross and/or microscopic portion of the report in rendering the final pathologic diagnosis. MCKENZIE RUSH 07/29/2010 10:1 6 AM EST John Andrade MD PATHOLOGY/CYTOLOGY O ROSS MCKENZIE RUSH documented in this encounter Visit Diagnoses Not on filedocumented in this encounter Care Teams Manager Sql Relationship Specialty Start Date End Date Unknown None PCP - General 01/10/19 documented as of this encounter
--- OUTSIDE RECORDS SUMMARY | 2024-06-26 16:47 | XMS_ITS | Encounter Summary ---
Author Organization [facility] Address [address] [place] [address] Care Team Providers Care Pre Press Manager Name Role Phone Unavailable Primary Care Provider Unavailabl e Encounter Details Date Type Department Care Team (Late st Contact Info) Description 05/29/2020 Lab Requisition [facility] Pathology & Laboratory Medicine - [facility] [address] [place] [address] Outr Resulting Lab, Provider Social History Tobacco Use Types Packs/Day Years [...] Procedure Name Priority Date/Time Associated Diagnosis Comments DO NOT ORDER STANDALONE - BROAD COVID TEST Today 05/29/2020 8:48 EST COVID-19 TESTING Routine 05/29/2020 8:48 EST documented in this encounter Results * (ABNORMAL) DO NOT ORDER STANDALONE - BROAD COVID TEST (05/29/2020 8:48 EST) COVID-19 rt-PCR Result POSITIVE( AA) Negative 06/01/2020 19:45 EST [facility] Comment: Positive for detection of 2019-novel Coronavirus (2019-nCoV) by qRT-PCR. Limitations Positive results are indicative of active infection with SARS-CoV-2 but do not rule out bacterial infection or co-infection with other viruses. The agent detected may not be the definite cause of disease. In addition, detection of viral RNA may not indicate the presence of infectious virus or that SARS-CoV-2 is the causative agent for clinical symptoms. Negative results do not preclude SARS-CoV-2 infection and should not be used as the sole basis for patient management decisions. Negative results must be combined with clinical observations, patient history, and epidemiological information. False negative results may also occur if amplification inhibitors are present in the specimen or if inadequate numbers of organisms are present in the specimen. Optimum specimen types and timing for peak viral levels during infections caused by SARS-CoV-2 have not been fully determined. Collection of multiple specimens (types and time points) from the same patient may be necessary to detect the virus. The test was validated for use with upper respiratory specimens obtained via nasopharyngeal or oropharyngeal swabs in VTM, UTM, M4, M5, M6, saline, and MTM media. The performance of this test has not been established for other specimens. Specimens collected using other FDA recommended Specimen Collection Materials listed in the FDA COVID-19 [employer] communication (September 05, 2019) are processed with the caveat that they were not all validated for use with this test and the result must be interpreted in this context. Furthermore, a false negative results may occur if a specimen is improperly collected, transported or handled. If the virus mutates in the RT-PCR target region, SARS-CoV-2 may not be detected or may be detected less predictably. Inhibitors or other types of interference may produce a false negative result. An interference study evaluating the effect of common cold medications was not performed. This test is not FDA-cleared but its performance characteristics were established by our CLIA-certified, CAP-accredited, high complexity laboratory in accordance with CLIA regulations, [employer] [place] (CAP) guidelines (Aug 29, 2019), and FDA guidance (Aug 10, 2019). This test is only for use under the Food and Drug Administration's Emergency Use Authorization. Swab ENTIRE NASOPHARYNX / Unknown 05/29/2020 8:48 EST 05/29/2020 21:22 EST us Provider Outr Resulting Lab MICROBIOLOGY - GENER AL ORDERABLES Final Result [place], [place] * (ABNORMAL) COVID-19 TESTING (05/29/2020 8:48 EST) Pathologist [facility] [place] COVID-19 rt-PCR Result POSITIVE(AA) Negative 06/01/2020 21:22 [facility] Comment: Positive for detection of 2019-novel Coronavirus (2019-nCoV) by qRT-PCR. Limitations Positive results are indicative of active infection with SARS-CoV-2 but do not rule out bacterial infection or co-infection with other viruses. The agent detected may not be the definite cause of disease. In addition, detection of viral RNA may not indicate the presence of infectious virus or that SARS-CoV-2 is the causative agent for clinical symptoms. Negative results do not preclude SARS-CoV-2 infection and should not be used as the sole basis for patient management decisions. Negative results must be combined with clinical observations, patient history, and epidemiological information. False negative results may also occur if amplification inhibitors are present in the specimen or if inadequate numbers of organisms are present in the specimen. Optimum specimen types and timing for peak viral levels during infections caused by SARS-CoV-2 have not been fully determined. Collection of multiple specimens (types and time points) from the same patient may be necessary to detect the virus. The test was validated for use with upper respiratory specimens obtained via nasopharyngeal or oropharyngeal swabs in VTM, UTM, M4, M5, M6, saline, and MTM media. The performance of this test has not been established for other specimens. Specimens collected using other FDA recommended Specimen Collection Materials listed in the FDA COVID-19 [employer] communication (September 05, 2019) are processed with the caveat that they were not all validated for use with this test and the result must be interpreted in this context. Furthermore, a false negative results may occur if a specimen is improperly collected, transported or handled. If the virus mutates in the RT-PCR target region, SARS-CoV-2 may not be detected or may be detected less predictably. Inhibitors or other types of interference may produce a false negative result. An interference study evaluating the effect of common cold medications was not performed. This test is not FDA-cleared but its performance characteristics were established by our CLIA-certified, CAP-accredited, high complexity laboratory in accordance with CLIA regulations, [employer] [place] (CAP) guidelines (Aug 29, 2019), and FDA guidance (Aug 10, 2019). This test is only for use under the Food and Drug Administration's Emergency Use Authorization. Performing Lab [facility] 06/01/2020 21:22 EST [facility] Swab 05/29/2020 8:48 EST 05/29/2020 21:22 EST us Provider Outr Resulting Lab MICROBIOLOGY - GENER AL ORDERABLES Final Result [facility] [address] LAB[place]ATORY [place], [place] documented in this encounter Visit Diagnoses Not on filedocumented in this encounter Additional Health Concerns Infection Onset Date Last Indicated Resolved Time COVID-19 05/29/2020 05/29/2020 06/28/2020 22:1 5 EST documented as of this encounter
--- OUTSIDE RECORDS SUMMARY | 2024-06-26 16:47 | XMS_ITS | Encounter Summary ---
Author Organization [facility] Address [address] [place] [address] Care Team Providers Care After School Teacher Name Role Phone Unavailable Primary Care Provider Unavailabl e Encounter Details Date Type Department Care Team (Late st Contact Info) Description 12/02/2022 Lab Requisition [facility] Pathology & Laboratory Medicine - [facility] [address] [place] [address] Outr Resulting Lab, Provider Social History Tobacco [...] Procedure Name Priority Date/Time Associated Diagnosis Comments HEPATITIS B SURFACE ANTIBODY Routine 12/02/2022 10:21 EDT documented in this encounter Results * HEPATITIS B SURFACE ANTIBODY (12/02/2022 10:21 EDT) Hep B Surface Ab, Quantitative 22.6 See Note mIU/mL 12/05/2022 9:21 EDT [facility] Comment: Reference Range for Hep B Surface Ab, Quant: Positive: >= 10.0 mIU/mL Negative: ??< 10.0 mIU/mL Patient is presumed to be immune to infection with Hepatitis B Virus. Hep B Surface Ab, Qualitative Positive See Note 12/05/2022 9:21 EDT [facility] Comment: Reference Range for Hep B Surface Ab, Qual: Unvaccinated: ??Negative Vaccinated: ??Positive Blood VENOUS BLOOD / Unknown 12/02/2022 10:21 EDT 12/02/2022 21:08 EDT us Provider Outr Resulting Lab CHEMISTRY & BLOOD GA S ORDERABLES Final Result [facility] [address] [place] [address] documented in this encounter Visit Diagnoses Not on filedocumented in this encounter
--- OUTSIDE RECORDS SUMMARY | 2024-06-26 16:47 | XMS_ITS | Encounter Summary ---
Author Organization [facility] Address [address] [place] [address] Care Team Providers Care Dye House Helper Name Role Phone Unavailable Primary Care Provider Unavailabl e Encounter Details Date Type Department Care Team (Late st Contact Info) Description 09/18/2020 Lab Requisition [facility] Pathology & Laboratory Medicine - [facility] [address] [place] [address] Outr Resulting Lab, Provider Social History Tobacco [...] Procedure Name Priority Date/Time Associated Diagnosis Comments ZZCOVID-19 TEST [facility] LAB PCR Today 09/18/2020 11:29 EDT COVID-19 TESTING Routine 09/18/2020 11:2 9 EDT documented in this encounter Results * COVID-19 TEST [facility] LAB PCR (09/18/2020 11:29 EDT) Swab ENTIRE NASOPHARYNX / Unknown 09/18/2020 11:29 EDT 09/18/2020 19:41 EDT us Provider Outr Resulting Lab MICROBIOLOGY - GENER AL ORDERABLES Final Result [facility] [address] [place] [address] * COVID-19 TESTING (09/18/2020 11:29 EDT) COVID-19 rt-PCR Result Indeterminate Negative 09/19/2020 19:40 EDT [facility] Comment:This is an appended report. These results have been appended to a previously preliminary verified report. Performing Lab [facility] 09/19/2020 19:40 EDT [facility] Swab 09/18/2020 11:2 9 EDT 09/18/2020 19:41 EDT us Provider Outr Resulting Lab MICROBIOLOGY - GENER AL ORDERABLES Final Result [facility] [address] [place] [address] documented in this encounter Visit Diagnoses Not on filedocumented in this encounter
--- OUTSIDE RECORDS SUMMARY | 2024-06-26 16:47 | XMS_ITS | Referral Summary ---
Author Organization [facility] Address [address] [place] [address] Care Team Providers Care Statue Carver Name Role Phone Unavailable Primary Care Provider [...] Orientation Not on file Plan of Treatment Not on file
[2024-06-26 19:37] LABS: Hemoglobin A1C 5.3 % (<5.7)
[2024-06-26 19:39] LABS: ALT 37 U/L (14-59); AST 17 U/L (15-37); Albumin 4.4 g/dL (3.4-5.0); Alkaline Phosphatase 73 U/L (46-116); BUN 13 mg/dL (7-18); Bilirubin, Total 0.35 mg/dL (0.2-1.0); CREATININE 0.9 mg/dL (0.55-1.02); Calcium 9.7 mg/dL (8.5-10.1); Chloride 103 mmol/L (98-107); Glucose 98 mg/dL (74-106); Potassium 3.7 mmol/L (3.5-5.1); Sodium 140 mmol/L (136-145); TSH (W/Ref FT4) 1.25 uIU/mL (0.36-3.74); Total Protein 7.7 g/dL (6.4-8.2)
== END 2024-06-26 16:42 | disposition home or self-care (01) ==
LOC: NCHCN 16:41
PROVIDERS: Visit Provider Nurse Practitioner Family
DX: I10 Essential (primary) hypertension (principal); Z68.30 Body mass index [BMI] 30.0-30.9, adult; E66.9 Obesity, unspecified
CPT/HCPCS: 80053; 83036; 84443

== ENCOUNTER 2025-02-26 13:26 | Outpatient (CLI) | payer BC, SELFPAY ==
--- NOTE | 2025-02-26 14:30 | DI.RAD_ITS ---
Exam(s) XR CHEST 2V PA LATERAL EXAM: XR CHEST 2V PA LATERAL CLINICAL HISTORY: eval pathology, ? PNEUMONIA,COUGH,R05.9. TECHNIQUE: 2D digital imaging was performed. COMPARISON: No exams were available for comparison FINDINGS: 2 views: Heart size is normal. The mediastinum is not widened. Lungs are clear. No infiltrates nor pleural effusions. IMPRESSION: No acute pulmonary findings. DATA REPOSITORY: RADIATION DOSE DELIVERED:
== END 2025-02-26 13:46 ==
LOC: DI 04-11 13:26
PROVIDERS: Visit Provider Nurse Practitioner Family
DX: R05.9 Cough, unspecified (principal)
CPT/HCPCS: 71046